=== PATIENT | female | born 1950 | race Caucasian/White ===

== ENCOUNTER → 2016-08-22 | Outpatient (CLI) | payer OTHER ==
[~2016-08-22] MED LIST: *BLDWK8; *CPAPSUP; /DILT30TAB; /INSULEV SC; /PANT40TA; /SUCR1TA PO; ADV250INH INH; ALBU/IPRAT INHALATION; ALBU17IN INH; ALBU17IN2 IN; ALBUTEROL INHALATION; ALBUTEROL LIQ; ALDA25TA2; ALDA25TA2 PO; ALTACE PO; AMARYL4 PO; AMMO12CR4 EXT; ASPEC325 PO; ASPI81TA45 OR; ASPI81TA83 PO; ASPI81TAEC PO; ASTELIN NASAL; ATEN25TA; ATEN25TA PO; ATEN50TA2; ATEN50TA2 OR; ATENOLOL50 PO; ATENPOW PO; ATROVENTIN INHALATION; AUG875 PO; AVANDIA4 PO; BABY81CH; BACT800T; BATTERY; BEXTRA PO; BIMA01SOL OU; CALC1TAB30 PO; CALCIUM GLUCONATE PO; CALCTAB22 PO; CALCTAB93 OR; CARDIZEM PO; CEFA1TAB; CEFAD50CA PO; CEFADROXIL PO; CEFT500T; COZA25TA8; COZAAR25 PO; CRES20TA PO; DARV100T; DEMA10TA; DEMADEX PO; DEXI60CA PO; DILT30TA PO; DILTIAZEM PO; DUONSOL; DUONSOL INHALATION; DURATUSS PO; DURICEF PO; ELIQ5TAB PO; FERR325T; FERR325T OR; FERR325T3 PO; FERROUS325 PO; FLEXERIL; GLUCCOSEAC TOPICAL; GLUCOP1000; GLUCOP1000 PO; GLUCOPH500 PO; GLUCOPXR5; GLUCOSACCS; GLUCOSE TEST; GLUCULTRA TOPICAL; HCTZ25 PO; HUMULIN703 SC; INSUH10VL SC; INSULANT SC; INSULIN LANTUS SUBQ; IRON CR; IRON CR PO; IRON28TA; JANUVIA50 PO; KETO-28; LANCMIS; LANTUS SQ; LASIX40 PO; LIDO5DIS; LIPITOR10 PO; LIPITOR20 PO; LUMIGAN EYE DROPS; LUMIGAN EYE DROPS OU; LYRICA; LYRICA50 PO; MAMMOGRAM; MICARDIS PO; MICARDIS40 PO; MOME50SP; NASONEX; NEEDLESGP; NEOSSOL TOPICAL; NITR0.4S SL; NOVOLIN SQ; NOVOLOG INSULIN SC; NOVOLOG SQ; NOVOLOG100 MG/ML SC; NOVOLOGPEN SQ; NYSTATINCR TOPICAL; PHENERGA25 PO; POTA10CA PO; PRED20TA PO; PREG25CA; PRIL40CA PO; PROTONIX40 PO; SCOOTER; SIMB1SUS OU; SIMV20TA2; SIMV40TA2 PO; SPIR25TA2; SPIR25TA2 PO; SPIRONO PO; SUCR1TAB56 PO; SYRIN.5CC SUBQ; SYRINS1CC SUBQ; THIA100TA PO; TORS10TA22 PO; TORS20TA2 OR; TORS5TAB; TORSEMIDE PO; TRICOR145 PO; VICO5TAB; VICODIN PO; VIOXX125 PO; VIT D 2000 OR; VITA100027; VITA50003 PO; VITA500T3 PO; VITAMIN B1; VITAMIN B12 OR; VITAMIN D OR; VITAMIN D PO; ZETIA PO; ZITHROM500 PO; ZITHROZPAK PO; ZOCOR20 PO; [UNRECOGNIZED DRUG - CODE] PO; [UNRECOGNIZED DRUG - CODE] PO; [UNRECOGNIZED DRUG - CODE] SC; [UNRECOGNIZED DRUG - CODE] SQ; [UNRECOGNIZED DRUG - OTHER]; [UNRECOGNIZED DRUG - OTHER]; [UNRECOGNIZED DRUG - OTHER]; [UNRECOGNIZED DRUG - SUPPLY]
== END ==
LOC: M LAB 08:09
PROVIDERS: ATTEND Ophthalmology
DX: H34.232 Retinal artery branch occlusion, left eye (principal)

== ENCOUNTER → 2016-09-23 | Outpatient (CLI) | payer OTHER ==
[~2016-09-23] MED LIST changes: -TORS10TA22 PO; +TORS10TA3 PO
--- NOTE | 2016-09-23 16:39 | REP ---
Clinical: Cough. Technique: PA and lateral. Comparison: 09/21/2015. Findings: Cardiomegaly appears stable. Lung ocampo demonstrate chronic interstitial changes. Subtle superimposed acute atelectasis cannot be excluded. No consolidation, effusion, or pneumothorax. Postsurgical changes include prior sternotomy and surgical clips in the bilateral anterior chest wall. Impression: Chronic interstitial changes. Subtle superimposed acute process cannot be excluded and if the patient remains symptomatic consider chest CT for further investigation. Signed by Loy Juarez MD 09/23/2016 04:30 P
[2016-09-23 21:25] LABS: BASO % 0.4 % (0.0-1.0); EOS # 0.2 K/mm3 (0.0-0.50); EOS % 1.8 % (0.0-3.0); LARGE UNSTAINED CELL # 0.3 K/mm3 (0.0-0.4); LARGE UNSTAINED CELL % 3.1 % (0.0-4.0); LYMPH # 1.1 K/mm3 (1.5-4.5); LYMPH % 13.8 % (24.0-44.0); MEAN CORPUSCULAR HEMOGLOBIN 26.5 pg (27.0-33.0); MEAN CORPUSCULAR HGB CONC 31.4 g/dl (32.0-36.5); MEAN CORPUSCULAR VOLUME 84.4 fl (80.0-96.0); MONO # 0.5 K/mm3 (0.0-0.8); MONO % 6.2 % (0.0-5.0); NEUTROPHILS # 6.2 K/mm3 (1.8-7.7); NEUTROPHILS % 74.8 % (36.0-66.0); PLATELET COUNT, AUTOMATED 179 k/mm3 (150-450); RED CELL DISTRIBUTION WIDTH 17.3 % (11.5-14.5); WHITE BLOOD COUNT 8.3 K/mm3 (4.0-10.0)
== END ==
LOC: M WUC 16:16
PROVIDERS: ATTEND Physician Assistant
DX: R50.9 Fever, unspecified (principal); R05 Cough

== ENCOUNTER → 2016-10-30 | Outpatient (REF) | payer OTHER ==
[2016-10-30 12:00] LABS: BASO % 0.3 % (0.0-1.0); EOS # 0.1 K/mm3 (0.0-0.50); EOS % 1.8 % (0.0-3.0); LARGE UNSTAINED CELL # 0.1 K/mm3 (0.0-0.4); LARGE UNSTAINED CELL % 1.8 % (0.0-4.0); LYMPH # 1.2 K/mm3 (1.5-4.5); LYMPH % 18.1 % (24.0-44.0); MEAN CORPUSCULAR HEMOGLOBIN 26.2 pg (27.0-33.0); MEAN CORPUSCULAR HGB CONC 31.4 g/dl (32.0-36.5); MEAN CORPUSCULAR VOLUME 83.4 fl (80.0-96.0); MONO # 0.3 K/mm3 (0.0-0.8); PLATELET COUNT, AUTOMATED 172 k/mm3 (150-450); RED CELL DISTRIBUTION WIDTH 16.7 % (11.5-14.5); WHITE BLOOD COUNT 6.8 K/mm3 (4.0-10.0)
[2016-10-30 12:25] LABS: ALBUMIN 3.5 GM/DL (3.2-5.2); ALBUMIN/GLOBULIN RATIO 1.17 (1.00-1.93); BILIRUBIN,TOTAL 0.6 MG/DL (0.2-1.0); CALCIUM LEVEL 8.6 MG/DL (8.8-10.2); CREATININE FOR GFR 1.03 MG/DL (0.55-1.02); GLOMERULAR FILTRATION RATE 57.4 (>45); PERCENT SATURATION 16.1 % (13.2-37.4); TOTAL PROTEIN 6.5 GM/DL (6.4-8.2)
== END ==
LOC: M SFHCPLAZ 08:45
PROVIDERS: ATTEND Family Medicine
DX: D50.9 Iron deficiency anemia, unspecified (principal); E78.2 Mixed hyperlipidemia; E55.9 Vitamin D deficiency, unspecified; E11.9 Type 2 diabetes mellitus without complications

== ENCOUNTER → 2016-11-12 | Outpatient (REF) | payer OTHER ==
[2016-11-12 13:54] LABS: MEAN CORPUSCULAR HGB CONC 32.1 g/dl (32.0-36.5); RED CELL DISTRIBUTION WIDTH 16.8 % (11.5-14.5); WHITE BLOOD COUNT 10.3 K/mm3 (4.0-10.0)
[2016-11-12 14:17] LABS: ALBUMIN 3.4 GM/DL (3.2-5.2); ANION GAP 5 MEQ/L (8-16); BLOOD UREA NITROGEN 19 MG/DL (7-18); CARBON DIOXIDE LEVEL 34 MEQ/L (21-32); CHLORIDE LEVEL 107 MEQ/L (98-107); CREATININE FOR GFR 0.86 MG/DL (0.55-1.02); GLOMERULAR FILTRATION RATE > 60.0 (>45); GLUCOSE, FASTING 131 MG/DL (80-110); MAGNESIUM LEVEL 2.4 MG/DL (1.8-2.4); PHOSPHORUS LEVEL 3.5 MG/DL (2.5-4.9); POTASSIUM SERUM 3.6 MEQ/L (3.5-5.1); SODIUM LEVEL 146 MEQ/L (136-145)
[2016-11-12 14:36] LABS: EOSINOPHILS 2 % (0-5)
[2016-11-12 14:39] LABS: ANISOCYTOSIS 2+
[2016-11-12 14:40] LABS: HYPOCHROMASIA 1+
== END ==
LOC: M SFHCPLAZ 12:07
PROVIDERS: ATTEND Family Medicine
DX: I50.30 Unspecified diastolic (congestive) heart failure (principal)

== ENCOUNTER → 2016-11-13 | Outpatient (CLI) | payer OTHER ==
[~2016-11-13] MED LIST changes: +ISOVUE-370 76% 100ML VIAL (Q9967) As Ordered ONE
--- NOTE | 2016-11-13 16:50 | REP ---
CT ANGIOGRAM CHEST: TECHNIQUE: Axial contrast enhanced images from the thoracic inlet to the upper abdomen using 100 mL Isovue 370 intravenous contrast material with multiplanar reformations. There is no CT evidence of pulmonary embolism. There is no aortic aneurysm or dissection. Mild scattered atherosclerotic calcifications are seen of the thoracic aorta. Moderate right effusion is seen with adjacent right basilar atelectasis/infiltrate. There is a small left effusion with mild left basilar atelectasis/infiltrate. Scattered mildly enlarged mediastinal and hilar lymph nodes are present appearing similar to the prior exam. There is mild cardiomegaly. A small amount of sludge or stones seen in the gallbladder. There are degenerative changes of the spine. IMPRESSION: NO CT evidence of pulmonary embolism. Moderate right effusion with adjacent right basilar atelectasis/infiltrate. Small left effusion with mild left basilar atelectasis/infiltrate, mild cardiomegaly. Signed by Sammy Joyce MD 11/13/2016 05:43 P
== END ==
LOC: M RAD 15:38
PROVIDERS: ATTEND Family Medicine
DX: R06.02 Shortness of breath (principal)

== ENCOUNTER → 2017-01-02 | Outpatient (CLI) | payer OTHER ==
[~2017-01-02] MED LIST changes: -ISOVUE-370 76% 100ML VIAL (Q9967) As Ordered ONE
--- NOTE | 2017-01-02 15:32 | REP ---
CHEST, TWO VIEWS: HISTORY: Pleural effusion. COMPARISON: 09/23/2016 and 11/13/2016 An increase in interstitial markings is present in the lungs consistent with chronic interstitial fibrosis. There is blunting of the right costophrenic angle due to a small pleural effusion. The effusion is decreased compared to the previous study. The cardiac silhouette is enlarged. The pulmonary vasculature is normal in appearance. The bony structure is intact. The decubitus radiograph is left side down rather than right. IMPRESSION: 1. Chronic interstitial fibrosis. 2. Cardiomegaly. 3. Small right pleural effusion, decreased compared to the previous CT study. Signed by Jareth Torres MD 01/02/2017 03:36 P
== END ==
LOC: M RAD 14:53
PROVIDERS: ATTEND Internal Medicine Pulmonary Disease
DX: R91.8 Other nonspecific abnormal finding of lung field (principal)

== ENCOUNTER → 2017-01-16 | Outpatient (CLI) | payer OTHER ==
[2017-01-16 19:32] LABS: ALBUMIN 3.4 GM/DL (3.2-5.2); ANION GAP 6 MEQ/L (8-16); BLOOD UREA NITROGEN 22 MG/DL (7-18); CALCIUM LEVEL 9.1 MG/DL (8.8-10.2); CARBON DIOXIDE LEVEL 36 MEQ/L (21-32); CHLORIDE LEVEL 101 MEQ/L (98-107); CREATININE FOR GFR 0.94 MG/DL (0.55-1.02); GLOMERULAR FILTRATION RATE > 60.0 (>45); GLUCOSE, FASTING 111 MG/DL (80-110); MAGNESIUM LEVEL 2.2 MG/DL (1.8-2.4); POTASSIUM SERUM 3.6 MEQ/L (3.5-5.1); SODIUM LEVEL 143 MEQ/L (136-145)
--- NOTE | 2017-01-17 02:00 | REP ---
Clinical: Chest pain. Cough. Comparison: 09/23/2016. 01/02/2017. Findings: Small right pleural effusion and associated atelectasis suggested. Underlying diffuse bilateral chronic interstitial changes similar to prior examination. Mild cardiomegaly stable. No pneumothorax. Evidence of prior sternotomy, CABG, and bilateral breast surgery. Impression: Small right pleural effusion/reaction and right basilar atelectasis similar to 01/02/2017. Signed by Loy Juarez MD 01/17/2017 01:51 A
== END ==
LOC: M LAB 17:28
PROVIDERS: ATTEND Physician Assistant
DX: I50.33 Acute on chronic diastolic (congestive) heart failure (principal); J90 Pleural effusion, not elsewhere classified; J98.11 Atelectasis

== ENCOUNTER → 2017-02-11 | Outpatient (CLI) | payer OTHER ==
[~2017-02-11] MED LIST changes: -DEXI60CA PO; +DEXI60CA2 PO; +VITA1CAP40 PO; -VITA50003 PO
[2017-02-11 10:23] LABS: ALBUMIN 3.3 GM/DL (3.2-5.2); ANION GAP 5 MEQ/L (8-16); BLOOD UREA NITROGEN 16 MG/DL (7-18); CALCIUM LEVEL 8.5 MG/DL (8.8-10.2); CARBON DIOXIDE LEVEL 33 MEQ/L (21-32); CHLORIDE LEVEL 108 MEQ/L (98-107); CREATININE FOR GFR 0.96 MG/DL (0.55-1.02); GLOMERULAR FILTRATION RATE > 60.0 (>45); GLUCOSE, FASTING 83 MG/DL (80-110); MAGNESIUM LEVEL 2.1 MG/DL (1.8-2.4); PHOSPHORUS LEVEL 3.5 MG/DL (2.5-4.9); POTASSIUM SERUM 3.9 MEQ/L (3.5-5.1); SODIUM LEVEL 146 MEQ/L (136-145)
== END ==
LOC: M LAB 09:15
PROVIDERS: ATTEND Physician Assistant
DX: I50.33 Acute on chronic diastolic (congestive) heart failure (principal); I48.2 Chronic atrial fibrillation

== ENCOUNTER → 2017-03-09 | Outpatient (CLI) | payer OTHER ==
--- NOTE | 2017-03-09 14:16 | REP ---
REASON: Back pain and cramping. COMPARISON: 09/10/2013 Flexion and extension bending views were obtained. There is no significant change from the prior exam. There is chronic posterior disc space narrowing and mild anterior lipping. Vertebral body height and alignment is again seen to be within normal limits. Posterior osteophytic ridging, inferior endplate L3 status quo. Partial syndesmophyte formation seen at multiple levels unchanged to slightly increased. The pedicles remain intact bilaterally. There is no evidence of instability. IMPRESSION: Chronic changes as described above. Signed by Sameer Ramos DO 03/09/2017 03:13 P
--- NOTE | 2017-03-09 14:18 | REP ---
REASON: Pain. COMPARISON: 05/12/2009 Since the last examination, the patient has undergone median sternotomy. Sternal wires obscure some of the bony detail of the upper and mid thoracic region. There is no significant change in the appearance of the thoracic spine. There is syndesmophyte formation seen bilaterally at multiple levels, status quo to slightly increased. Vertebral body height and alignment is unchanged. There is disc space narrowing at every level, status quo to slightly increased. IMPRESSION: Chronic changes as described above. Signed by Sameer Ramos DO 03/09/2017 03:13 P
== END ==
LOC: M RAD 11:42
PROVIDERS: ATTEND Family Medicine
DX: R25.2 Cramp and spasm (principal)

== ENCOUNTER → 2017-05-21 | Outpatient (REF) | payer OTHER ==
[2017-05-21 12:30] LABS: BASO % 0.3 % (0.0-1.0); EOS # 0.1 10^3/uL (0.0-0.50); EOS % 1.8 % (0.0-3.0); IMMATURE GRANULOCYTE % 0.4 % (0-0); LYMPH # 1.1 10^3/uL (1.5-4.5); LYMPH % 14.2 % (24.0-44.0); MONO # 0.5 10^3/uL (0.0-0.8); MONO % 6.9 % (0.0-5.0); NEUTROPHILS # 5.7 10^3/uL (1.8-7.7); NEUTROPHILS % 76.4 % (36.0-66.0); PLATELET COUNT, AUTOMATED 187 10^3/uL (150-450); RED CELL DISTRIBUTION WIDTH 16.8 % (11.5-14.5); WHITE BLOOD COUNT 7.4 10^3/uL (4.0-10.0)
[2017-05-21 12:50] LABS: ALBUMIN 3.3 GM/DL (3.2-5.2); ALBUMIN/GLOBULIN RATIO 0.97 (1.00-1.93); ALKALINE PHOSPHATASE 101 U/L (45-117); ALT/SGPT 18 U/L (12-78); ANION GAP 4 MEQ/L (8-16); AST/SGOT 18 U/L (15-37); BILIRUBIN,TOTAL 0.6 MG/DL (0.2-1.0); BLOOD UREA NITROGEN 17 MG/DL (7-18); CALCIUM LEVEL 8.7 MG/DL (8.8-10.2); CARBON DIOXIDE LEVEL 39 MEQ/L (21-32); CHLORIDE LEVEL 103 MEQ/L (98-107); CHOLESTEROL LEVEL 157 MG/DL (<200); CREATININE FOR GFR 0.95 MG/DL (0.55-1.02); FERRITIN 121 NG/ML (8-252); FREE T4 1.15 NG/DL (0.76-1.46); GLOMERULAR FILTRATION RATE > 60.0 (>45); GLUCOSE, FASTING 151 MG/DL (80-110); PERCENT SATURATION 17.6 % (13.2-45.0); SODIUM LEVEL 146 MEQ/L (136-145); TOTAL IRON BINDING CAPACITY 301 UG/DL (250-450); TOTAL PROTEIN 6.7 GM/DL (6.4-8.2); TRIGLYCERIDES LEVEL 174 MG/DL (<150)
== END ==
LOC: M SFHCPLAZ 09:13
PROVIDERS: ATTEND Family Medicine
DX: D50.9 Iron deficiency anemia, unspecified (principal); E78.2 Mixed hyperlipidemia; E11.9 Type 2 diabetes mellitus without complications

== ENCOUNTER → 2017-06-05 | Outpatient (CLI) | payer OTHER ==
--- NOTE | 2017-06-06 10:06 | REP ---
ULTRASOUND RIGHT CHEST WALL: Real-time sonographic evaluation of the right chest wall performed. The patient reports swelling in this region and has had a hematoma drained. At the site of swelling, there is no evidence of fluid collection or mass. Signed by Sammy Joyce MD 06/06/2017 05:44 P
== END ==
LOC: M RAD 16:56
PROVIDERS: ATTEND Family Medicine
DX: N64.89 Other specified disorders of breast (principal); D05.10 Intraductal carcinoma in situ of unspecified breast

== ENCOUNTER → 2017-08-19 | Outpatient (CLI) | payer OTHER ==
[2017-08-19 20:55] LABS: ALBUMIN 3.6 GM/DL (3.2-5.2); ANION GAP 6 MEQ/L (8-16); BLOOD UREA NITROGEN 22 MG/DL (7-18); CALCIUM LEVEL 9.1 MG/DL (8.8-10.2); CARBON DIOXIDE LEVEL 35 MEQ/L (21-32); CHLORIDE LEVEL 101 MEQ/L (98-107); CREATININE FOR GFR 1.04 MG/DL (0.55-1.02); GLOMERULAR FILTRATION RATE 56.6 (>45); GLUCOSE, FASTING 194 MG/DL (80-110); PHOSPHORUS LEVEL 3.2 MG/DL (2.5-4.9); POTASSIUM SERUM 3.9 MEQ/L (3.5-5.1); SODIUM LEVEL 142 MEQ/L (136-145)
== END ==
LOC: M LAB 17:55
DX: I50.32 Chronic diastolic (congestive) heart failure (principal)

== ENCOUNTER → 2017-08-19 | Outpatient (CLI) | payer OTHER ==
[2017-08-19 20:44] LABS: BASO % 0.5 % (0.0-1.0); EOS # 0.1 10^3/uL (0.0-0.50); EOS % 1.4 % (0.0-3.0); HEMATOCRIT 36.8 % (36.0-47.0); HEMOGLOBIN 11.6 g/dl (12.0-16.0); IMMATURE GRANULOCYTE % 0.4 % (0-0); LYMPH # 1.5 10^3/uL (1.5-4.5); LYMPH % 17.2 % (24.0-44.0); MEAN CORPUSCULAR HEMOGLOBIN 26.2 pg (27.0-33.0); MEAN CORPUSCULAR HGB CONC 31.5 g/dl (32.0-36.5); MEAN CORPUSCULAR VOLUME 83.3 fl (80.0-96.0); MONO # 0.6 10^3/uL (0.0-0.8); MONO % 6.6 % (0.0-5.0); NEUTROPHILS # 6.3 10^3/uL (1.8-7.7); NEUTROPHILS % 73.9 % (36.0-66.0); PLATELET COUNT, AUTOMATED 193 10^3/uL (150-450); RED BLOOD COUNT 4.42 10^6/uL (4.00-5.40); RED CELL DISTRIBUTION WIDTH 16.8 % (11.5-14.5); RETIC HEMOGLOBIN EQUIVALENT 30.6 pg (24-36); RETICULOCYTE # 126.4 10^9/L (17-77); RETICULOCYTE % 2.9 % (0.5-1.5); WHITE BLOOD COUNT 8.5 10^3/uL (4.0-10.0)
[2017-08-19 20:56] LABS: ALBUMIN 3.5 GM/DL (3.2-5.2); ALBUMIN/GLOBULIN RATIO 1.03 (1.00-1.93); ALKALINE PHOSPHATASE 111 U/L (45-117); ALT/SGPT 21 U/L (12-78); ANION GAP 6 MEQ/L (8-16); AST/SGOT 20 U/L (7-37); BILIRUBIN,TOTAL 0.4 MG/DL (0.2-1.0); BLOOD UREA NITROGEN 20 MG/DL (7-18); CALCIUM LEVEL 8.7 MG/DL (8.8-10.2); CARBON DIOXIDE LEVEL 35 MEQ/L (21-32); CHLORIDE LEVEL 101 MEQ/L (98-107); CREATININE FOR GFR 1.04 MG/DL (0.55-1.02); FERRITIN 100 NG/ML (8-252); GLOMERULAR FILTRATION RATE 56.6 (>45); GLUCOSE, FASTING 195 MG/DL (80-110); IRON (FE) 46 UG/DL (50-170); MAGNESIUM LEVEL 2.4 MG/DL (1.8-2.4); PERCENT SATURATION 14.5 % (13.2-45.0); SODIUM LEVEL 142 MEQ/L (136-145); TOTAL IRON BINDING CAPACITY 317 UG/DL (250-450); TOTAL PROTEIN 6.9 GM/DL (6.4-8.2)
[2017-08-19 21:03] LABS: PTH INTACT 55.9 PG/ML (14.0-72.0); TOTAL 25(OH) VITAMIN D 54.1 NG/ML (30.0-100.0)
[2017-08-19 22:08] LABS: ESTIMATED AVERAGE GLUCOSE 148 MG/DL (60-110); HEMOGLOBIN A1c 6.8 %
[2017-08-21 14:19] LABS: TISSUE TRANSGLUTAMINASE IgA <2 U/mL (0-3)
== END ==
LOC: M LAB 17:52
DX: D50.9 Iron deficiency anemia, unspecified (principal)

== ENCOUNTER → 2017-11-06 | Outpatient (CLI) | payer OTHER | LOC: M WUC 18:12 | DX: M79.632 Pain in left forearm (principal) | CPT/HCPCS: 73090 ==

== ENCOUNTER → 2017-12-05 | Outpatient (REF) | payer OTHER ==
[2017-12-05 09:55] LABS: BASO % 0.3 % (0.0-1.0); EOS # 0.1 10^3/uL (0.0-0.50); EOS % 1.8 % (0.0-3.0); HEMATOCRIT 35.6 % (36.0-47.0); HEMOGLOBIN 11.7 g/dl (12.0-15.5); IMMATURE GRANULOCYTE % 0.6 % (0-3.0); LYMPH # 1.3 10^3/uL (1.5-4.5); LYMPH % 16.4 % (24.0-44.0); MEAN CORPUSCULAR HEMOGLOBIN 28.1 pg (27.0-33.0); MEAN CORPUSCULAR HGB CONC 32.9 g/dl (32.0-36.5); MEAN CORPUSCULAR VOLUME 85.4 fl (80.0-96.0); MONO # 0.6 10^3/uL (0.0-0.8); MONO % 8.1 % (0.0-5.0); NEUTROPHILS # 5.7 10^3/uL (1.8-7.7); NEUTROPHILS % 72.8 % (36.0-66.0); PLATELET COUNT, AUTOMATED 179 10^3/uL (150-450); RED BLOOD COUNT 4.17 10^6/uL (4.00-5.40); RED CELL DISTRIBUTION WIDTH 16.3 % (11.5-14.5); WHITE BLOOD COUNT 7.9 10^3/uL (4.0-10.0)
[2017-12-05 10:12] LABS: ESTIMATED AVERAGE GLUCOSE 197 MG/DL (60-110); HEMOGLOBIN A1c 8.5 %
[2017-12-05 10:13] LABS: ALBUMIN 3.3 GM/DL (3.2-5.2); ALBUMIN/GLOBULIN RATIO 1.03 (1.00-1.93); ALKALINE PHOSPHATASE 94 U/L (45-117); ALT/SGPT 23 U/L (12-78); ANION GAP 5 MEQ/L (8-16); AST/SGOT 20 U/L (7-37); BILIRUBIN,TOTAL 0.5 MG/DL (0.2-1.0); BLOOD UREA NITROGEN 22 MG/DL (7-18); C REACTIVE PROTEIN QUANTITATIV 1.01 MG/DL (0.00-0.30); CALCIUM LEVEL 8.5 MG/DL (8.8-10.2); CARBON DIOXIDE LEVEL 33 MEQ/L (21-32); CHLORIDE LEVEL 106 MEQ/L (98-107); CHOLESTEROL LEVEL 134 MG/DL (<200); CHOLESTEROL RISK RATIO 4.187 (<5); CPK CREATINE PHOSPHOKINASE 87 U/L (26-192); CREATININE FOR GFR 1.26 MG/DL (0.55-1.30); FREE T4 1.03 NG/DL (0.76-1.46); GLOMERULAR FILTRATION RATE 45.4 (>45); GLUCOSE, FASTING 171 MG/DL (70-100); HDL CHOLESTEROL 32 MG/DL (>40); LDL CHOLESTEROL 65.8 MG/DL (<100); NON-HDL-C 102 MG/DL; POTASSIUM SERUM 3.9 MEQ/L (3.5-5.1); SODIUM LEVEL 144 MEQ/L (136-145); TOTAL PROTEIN 6.5 GM/DL (6.4-8.2); TRIGLYCERIDES LEVEL 181 MG/DL (<150)
[2017-12-05 12:03] LABS: VITAMIN B12 LEVEL 433 PG/ML (247-911)
== END ==
LOC: M SFHCPLAZ 07:56
DX: E53.8 Deficiency of other specified B group vitamins (principal); E78.2 Mixed hyperlipidemia; I50.30 Unspecified diastolic (congestive) heart failure; E11.9 Type 2 diabetes mellitus without complications

== ENCOUNTER → 2017-12-14 | Outpatient (CLI) | payer OTHER ==
[2017-12-14 11:10] LABS: ALBUMIN 3.4 GM/DL (3.2-5.2); ANION GAP 7 MEQ/L (8-16); BLOOD UREA NITROGEN 20 MG/DL (7-18); CALCIUM LEVEL 8.3 MG/DL (8.8-10.2); CARBON DIOXIDE LEVEL 32 MEQ/L (21-32); CHLORIDE LEVEL 105 MEQ/L (98-107); CREATININE FOR GFR 1.03 MG/DL (0.55-1.30); GLOMERULAR FILTRATION RATE 57.1 (>45); GLUCOSE, FASTING 215 MG/DL (70-100); LIPASE 93 U/L (73-393); PHOSPHORUS LEVEL 3.4 MG/DL (2.5-4.9); POTASSIUM SERUM 3.9 MEQ/L (3.5-5.1); SODIUM LEVEL 144 MEQ/L (136-145)
[2017-12-16 14:19] LABS: H PYLORI SERUM QUANT IgG ABY 0.17 (0.00-0.79)
== END ==
LOC: M LAB 10:24
DX: K21.9 Gastro-esophageal reflux disease without esophagitis (principal)
CPT/HCPCS: 83690

== ENCOUNTER → 2018-01-06 | Outpatient (CLI) | payer OTHER ==
[~2018-01-06] MED LIST changes: -*BLDWK8; -*CPAPSUP; -/DILT30TAB; -/INSULEV SC; -/PANT40TA; -/SUCR1TA PO; -ADV250INH INH; -ALBU/IPRAT INHALATION; -ALBU17IN INH; -ALBU17IN2 IN; -ALBUTEROL INHALATION; -ALBUTEROL LIQ; -ALDA25TA2; -ALDA25TA2 PO; -ALTACE PO; -AMARYL4 PO; -AMMO12CR4 EXT; -ASPEC325 PO; -ASPI81TA45 OR; -ASPI81TA83 PO; -ASPI81TAEC PO; -ASTELIN NASAL; -ATEN25TA; -ATEN25TA PO; -ATEN50TA2; -ATEN50TA2 OR; -ATENOLOL50 PO; -ATENPOW PO; -ATROVENTIN INHALATION; -AUG875 PO; -AVANDIA4 PO; -BABY81CH; -BACT800T; -BATTERY; -BEXTRA PO; -BIMA01SOL OU; -CALC1TAB30 PO; -CALCIUM GLUCONATE PO; -CALCTAB22 PO; -CALCTAB93 OR; -CARDIZEM PO; -CEFA1TAB; -CEFAD50CA PO; -CEFADROXIL PO; -CEFT500T; -COZA25TA8; -COZAAR25 PO; -CRES20TA PO; -DARV100T; -DEMA10TA; -DEMADEX PO; -DEXI60CA2 PO; -DILT30TA PO; -DILTIAZEM PO; -DUONSOL; -DUONSOL INHALATION; -DURATUSS PO; -DURICEF PO; +E-Z-GAS II EFFERVESCENT PACKET (SODIUM BICARB./CITRIC ACID/SIMETHICONE) As Ordered; +E-Z-HD 98% w/w 340GM SUSP BTL As Ordered; +E-Z-PAQUE 96% w/w SUSP 176GM BTL As Ordered; -ELIQ5TAB PO; -FERR325T; -FERR325T OR; -FERR325T3 PO; -FERROUS325 PO; -FLEXERIL; -GLUCCOSEAC TOPICAL; -GLUCOP1000; -GLUCOP1000 PO; -GLUCOPH500 PO; -GLUCOPXR5; -GLUCOSACCS; -GLUCOSE TEST; -GLUCULTRA TOPICAL; -HCTZ25 PO; -HUMULIN703 SC; -INSUH10VL SC; -INSULANT SC; -INSULIN LANTUS SUBQ; -IRON CR; -IRON CR PO; -IRON28TA; -JANUVIA50 PO; -KETO-28; -LANCMIS; -LANTUS SQ; -LASIX40 PO; -LIDO5DIS; -LIPITOR10 PO; -LIPITOR20 PO; -LUMIGAN EYE DROPS; -LUMIGAN EYE DROPS OU; -LYRICA; -LYRICA50 PO; -MAMMOGRAM; -MICARDIS PO; -MICARDIS40 PO; -MOME50SP; -NASONEX; -NEEDLESGP; -NEOSSOL TOPICAL; -NITR0.4S SL; -NOVOLIN SQ; -NOVOLOG INSULIN SC; -NOVOLOG SQ; -NOVOLOG100 MG/ML SC; -NOVOLOGPEN SQ; -NYSTATINCR TOPICAL; -PHENERGA25 PO; -POTA10CA PO; -PRED20TA PO; -PREG25CA; -PRIL40CA PO; -PROTONIX40 PO; -SCOOTER; -SIMB1SUS OU; -SIMV20TA2; -SIMV40TA2 PO; -SPIR25TA2; -SPIR25TA2 PO; -SPIRONO PO; -SUCR1TAB56 PO; -SYRIN.5CC SUBQ; -SYRINS1CC SUBQ; -THIA100TA PO; -TORS10TA3 PO; -TORS20TA2 OR; -TORS5TAB; -TORSEMIDE PO; -TRICOR145 PO; -VICO5TAB; -VICODIN PO; -VIOXX125 PO; -VIT D 2000 OR; -VITA100027; -VITA1CAP40 PO; -VITA500T3 PO; -VITAMIN B1; -VITAMIN B12 OR; -VITAMIN D OR; -VITAMIN D PO; -ZETIA PO; -ZITHROM500 PO; -ZITHROZPAK PO; -ZOCOR20 PO; -[UNRECOGNIZED DRUG - CODE] PO; -[UNRECOGNIZED DRUG - CODE] PO; -[UNRECOGNIZED DRUG - CODE] SC; -[UNRECOGNIZED DRUG - CODE] SQ; -[UNRECOGNIZED DRUG - OTHER]; -[UNRECOGNIZED DRUG - OTHER]; -[UNRECOGNIZED DRUG - OTHER]; -[UNRECOGNIZED DRUG - SUPPLY]
== END ==
LOC: M RAD 09:10
DX: K21.9 Gastro-esophageal reflux disease without esophagitis (principal); Z98.84 Bariatric surgery status

== ENCOUNTER → 2018-03-24 | Outpatient (REF) | payer OTHER ==
[2018-03-24 12:13] LABS: BASO % 0.3 % (0.0-1.0); EOS # 0.1 10^3/uL (0.0-0.50); EOS % 1.6 % (0.0-3.0); HEMATOCRIT 36.8 % (36.0-47.0); HEMOGLOBIN 11.7 g/dl (12.0-15.5); IMMATURE GRANULOCYTE % 0.4 % (0-3.0); LYMPH % 13.1 % (24.0-44.0); MEAN CORPUSCULAR HEMOGLOBIN 27.7 pg (27.0-33.0); MEAN CORPUSCULAR HGB CONC 31.8 g/dl (32.0-36.5); MONO # 0.5 10^3/uL (0.0-0.8); MONO % 6.8 % (0.0-5.0); NEUTROPHILS # 6.2 10^3/uL (1.8-7.7); NEUTROPHILS % 77.8 % (36.0-66.0); PLATELET COUNT, AUTOMATED 161 10^3/uL (150-450); RED BLOOD COUNT 4.23 10^6/uL (4.00-5.40); RED CELL DISTRIBUTION WIDTH 16.5 % (11.5-14.5); RETIC HEMOGLOBIN EQUIVALENT 31.4 pg (24-36); RETICULOCYTE # 132.8 10^9/L (17-77); RETICULOCYTE % 3.1 % (0.5-1.5); WHITE BLOOD COUNT 7.9 10^3/uL (4.0-10.0)
[2018-03-24 12:32] LABS: ALBUMIN 3.3 GM/DL (3.2-5.2); ALBUMIN/GLOBULIN RATIO 1.06 (1.00-1.93); ALKALINE PHOSPHATASE 104 U/L (45-117); ALT/SGPT 20 U/L (12-78); ANION GAP 6 MEQ/L (8-16); AST/SGOT 20 U/L (7-37); BILIRUBIN,TOTAL 0.4 MG/DL (0.2-1.0); BLOOD UREA NITROGEN 16 MG/DL (7-18); CALCIUM LEVEL 8.6 MG/DL (8.8-10.2); CARBON DIOXIDE LEVEL 33 MEQ/L (21-32); CHLORIDE LEVEL 107 MEQ/L (98-107); CREATININE FOR GFR 0.99 MG/DL (0.55-1.30); GLOMERULAR FILTRATION RATE 59.7 (>45); GLUCOSE, FASTING 139 MG/DL (70-100); MAGNESIUM LEVEL 1.9 MG/DL (1.8-2.4); POTASSIUM SERUM 3.7 MEQ/L (3.5-5.1); SODIUM LEVEL 146 MEQ/L (136-145); TOTAL PROTEIN 6.4 GM/DL (6.4-8.2)
[2018-03-24 13:27] LABS: ESTIMATED AVERAGE GLUCOSE 174 MG/DL (60-110); HEMOGLOBIN A1c 7.7 %
== END ==
LOC: M SFHCPLAZ 09:14
DX: D50.9 Iron deficiency anemia, unspecified (principal); I50.30 Unspecified diastolic (congestive) heart failure; E11.9 Type 2 diabetes mellitus without complications
CPT/HCPCS: 83735

== ENCOUNTER → 2018-03-25 | Outpatient (REF) | payer OTHER | LOC: M LAB REF 15:02 | DX: L03.90 Cellulitis, unspecified (principal) ==

== ENCOUNTER → 2018-04-21 | Outpatient (REF) | payer OTHER | LOC: M LAB REF 16:35 | DX: L03.031 Cellulitis of right toe (principal) | CPT/HCPCS: 87186 ==

== ENCOUNTER → 2018-05-22 | Outpatient (REF) | payer OTHER | LOC: M SFHCPLAZ 15:45 | DX: L03.90 Cellulitis, unspecified (principal) | CPT/HCPCS: 87186 ==

== ENCOUNTER 2018-07-17 06:53 | Day surgery (SDC) | payer OTHER ==
[~2018-07-17] VITALS: Ht 167.6 cm; Wt 99.8 kg
[~2018-07-17 06:53] MED LIST changes: +*BLDWK8; +*CPAPSUP; +/DILT30TAB; +/INSULEV SC; +/PANT40TA; +/SUCR1TA PO; +ADV250INH INH; +ADV500INH INH; +ALBU/IPRAT INHALATION; +ALBU17IN INH; +ALBU17IN2 IN; +ALBUTEROL INHALATION; +ALBUTEROL LIQ; +ALDA25TA2; +ALDA25TA2 PO; +ALTACE PO; +AMARYL4 PO; +AMMO12CR4 EXT; +ASPEC325 PO; +ASPI81TA45 OR; +ASPI81TA83 PO; +ASPI81TAEC PO; +ASTELIN NASAL; +ATEN25TA; +ATEN25TA PO; +ATEN50TA2; +ATEN50TA2 OR; +ATENOLOL50 PO; +ATENPOW PO; +ATROVENTIN INHALATION; +AUG875 PO; +AVANDIA4 PO; +BABY81CH; +BACT800T; +BATTERY; +BEXTRA PO; +BIMA01SOL OU; +BISO10TA PO; +CALC1TAB30 PO; +CALCIUM GLUCONATE PO; +CALCTAB22 PO; +CALCTAB93 OR; +CARDIZEM PO; +CEFA1TAB; +CEFAD50CA PO; +CEFADROXIL PO; +CEFT500T; +COZA25TA8; +COZAAR25 PO; +CRES20TA PO; +DARV100T; +DEMA10TA; +DEMADEX PO; +DEXI60CA2 PO; +DILT30TA PO; +DILTIAZEM PO; +DUONSOL; +DUONSOL INHALATION; +DURATUSS PO; +DURICEF PO; -E-Z-GAS II EFFERVESCENT PACKET (SODIUM BICARB./CITRIC ACID/SIMETHICONE) As Ordered; -E-Z-HD 98% w/w 340GM SUSP BTL As Ordered; -E-Z-PAQUE 96% w/w SUSP 176GM BTL As Ordered; +ELIQ5TAB PO; +FERR325T; +FERR325T OR; +FERR325T3 PO; +FERROUS325 PO; +FLEXERIL; +GABA-843 PO; +GLUCCOSEAC TOPICAL; +GLUCOP1000; +GLUCOP1000 PO; +GLUCOPH500 PO; +GLUCOPXR5; +GLUCOSACCS; +GLUCOSE TEST; +GLUCULTRA TOPICAL; +HCTZ25 PO; +HUMULIN703 SC; +INSUH10VL SC; +INSULANT SC; +INSULIN LANTUS SUBQ; +IRON CR; +IRON CR PO; +IRON28TA; +JANUVIA50 PO; +KETO-28; +KLOR10TA76 PO; +LANCMIS; +LANTUS SQ; +LASIX40 PO; +LIDO5DIS; +LIPITOR10 PO; +LIPITOR20 PO; +LUMIGAN EYE DROPS; +LUMIGAN EYE DROPS OU; +LYRICA; +LYRICA50 PO; +MAMMOGRAM; +MICARDIS PO; +MICARDIS40 PO; +MOME50SP; +NASONEX; +NEEDLESGP; +NEOSSOL TOPICAL; +NITR0.4S SL; +NOVOLIN SQ; +NOVOLOG INSULIN SC; +NOVOLOG SQ; +NOVOLOG100 MG/ML SC; +NOVOLOGPEN SQ; +NYSTATINCR TOPICAL; +PHENERGA25 PO; +PRED20TA PO; +PREG25CA; +PRIL40CA PO; +PROTONIX40 PO; +RANI150T PO; +SCOOTER; +SIMB1SUS OU; +SIMV20TA2; +SIMV40TA2 PO; +SPIR-10 PO; +SPIR25TA2; +SPIRONO PO; +SUCR1TAB56 PO; +SYRIN.5CC SUBQ; +SYRINS1CC SUBQ; +THIA100TA PO; +TORS10TA3 PO; +TORS20TA2 OR; +TORS20TA2 PO; +TORS5TAB; +TORSEMIDE PO; +TRICOR145 PO; +VENTAER INH; +VICO5TAB; +VICODIN PO; +VIOXX125 PO; +VIT D 2000 OR; +VITA100027; +VITA50005 PO; +VITA500T3 PO; +VITAMIN B1; +VITAMIN B12 OR; +VITAMIN D OR; +VITAMIN D PO; +VOLT1GEL15 TD; +ZETIA PO; +ZITHROM500 PO; +ZITHROZPAK PO; +ZOCOR20 PO; +[UNRECOGNIZED DRUG - CODE] PO; +[UNRECOGNIZED DRUG - CODE] PO; +[UNRECOGNIZED DRUG - CODE] SC; +[UNRECOGNIZED DRUG - CODE] SQ; +[UNRECOGNIZED DRUG - OTHER]; +[UNRECOGNIZED DRUG - OTHER]; +[UNRECOGNIZED DRUG - OTHER]; +[UNRECOGNIZED DRUG - SUPPLY]
[2018-07-17] MEDS ORDERED: PROPOFOL 200 MG/20 ML VIAL As Ordered ONE ×2 (07:16→08:44)
[2018-07-17] MEDS ORDERED: LIDOCAINE 2% INJ 100 MG/5 ML SDV (FOR ANES.) As Ordered ONE (07:17)
[2018-07-17] MEDS ORDERED: GLUCAGON FOR INJ 1 MG VIAL (J1610) As Ordered ONE (08:47)
[2018-07-17] MEDS ORDERED: ONDANSETRON 4MG/2ML VIAL (J2405) As Ordered ONE (08:58)
--- NOTE | 2018-07-17 09:09 | ROOR ---
Patient Name: Moira Benitez Procedure Date: 07/17/2018 8:13 AM Date of : 1950 Age: 67 Room: [facility] Gender: Female Note Status: Finalized Procedure: Colonoscopy Indications: High risk colon cancer surveillance: Personal history of colonic polyps, High risk colon cancer surveillance: Personal history of adenoma with villous component Providers: Dae WHITESIDE MD Referring MD: Nabil Lennon MD Requesting Provider: Medicines: Monitored Anesthesia Care Complications: No immediate complications. Procedure: Pre-Anesthesia Assessment: - The heart rate, respiratory rate, oxygen saturations, blood pressure, adequacy of pulmonary ventilation, and response to care were monitored throughout the procedure. The Colonoscope was introduced through the anus and advanced to the cecum, identified by appendiceal orifice and ileocecal valve. The colonoscopy was performed with difficulty due to inadequate bowel prep. The patient tolerated the procedure well. The quality of the bowel preparation was inadequate. Findings: The perianal and digital rectal examinations were normal. Four sessile polyps were found in the sigmoid colon. The polyps were 5 to 8 mm in size. These polyps were removed with a piecemeal technique using a cold snare. Resection and retrieval were complete. A 10 mm polyp was found in the proximal sigmoid colon. The polyp was semi-pedunculated. The polyp was removed with a hot snare. Resection and retrieval were complete. To prevent bleeding after the polypectomy, three hemostatic clips were successfully placed. There was no bleeding at the end of the procedure. A 3 mm polyp was found in the ascending colon. The polyp was sessile. The polyp was removed with a jumbo cold forceps. Resection and retrieval were complete. Multiple medium-mouthed diverticula were found in the sigmoid colon. Impression: - Preparation of the colon was inadequate. - Four 5 to 8 mm polyps in the sigmoid colon, removed piecemeal using a cold snare. Resected and retrieved. - One 10 mm polyp in the proximal sigmoid colon, removed with a hot snare. Resected and retrieved. Clips were placed. - One 3 mm polyp in the ascending colon, removed with a jumbo cold forceps. Resected and retrieved. - Moderate diverticulosis in the sigmoid colon. Recommendation: - Repeat colonoscopy in 6 months because the bowel preparation was suboptimal. - Resume Eliquis (apixaban) at prior dose in 3 days. - No ibuprofen, naproxen, or other non-steroidal anti-inflammatory drugs for 10 days after polyp removal. Dae Whiteside MD Dae WHITESIDE MD 07/17/2018 9:09:00 AM This report has been signed electronically. Number of Addenda: 0 Note Initiated On: 07/17/2018 8:13 AM Estimated Blood Loss: Estimated blood loss: none.
[2018-07-17 09:45] VITALS: BP 177/74
[2018-07-29] MEDS ORDERED: RHOP0.02 OU (12:28)
[2018-07-29] MEDS ORDERED: LANTINJ4 SC ×2 (12:28)
[2018-07-29] MEDS ORDERED: IRBE75TA5 PO (12:28)
[2018-07-29] MEDS ORDERED: SIMB1SUS OU (12:28)
[2018-07-29] MEDS ORDERED: RANI300T PO (12:28)
[2018-07-29] MEDS ORDERED: ADV500INH INH (12:28)
[2018-07-29] MEDS ORDERED: ATEN25TA PO (12:28)
[2018-07-29] MEDS ORDERED: CALC1TAB55 PO (12:28)
[2018-07-29] MEDS ORDERED: DEXI60CA2 PO (12:28)
[2018-07-29] MEDS ORDERED: NEUR300C PO (12:28)
[2018-07-29] MEDS ORDERED: CEFAD50CA PO (12:28)
[2018-07-29] MEDS ORDERED: CRES20TA PO (12:28)
[2018-07-29] MEDS ORDERED: NOVOINJ3 SC (12:28)
[2018-07-29] MEDS ORDERED: PROAAER10 INH (12:28)
[2018-07-29] MEDS ORDERED: DILT30TA PO (12:28)
[2018-07-29] MEDS ORDERED: TORS10TA3 PO ×2 (12:28)
[2018-07-29] MEDS ORDERED: DRIS50003 PO (12:28)
[2018-07-29] MEDS ORDERED: ASPI81TA85 PO (12:28)
[2018-07-29] MEDS ORDERED: KLOR10TA76 PO (12:28)
[2018-07-29] MEDS ORDERED: REGL5TAB2 PO (12:28)
[2018-07-29] MEDS ORDERED: ELIQ5TAB PO (12:28)
[2018-07-29] MEDS ORDERED: SPIR-10 PO (12:28)
[2018-07-29] MEDS ORDERED: MOME50SP (12:28)
[2018-07-29] MEDS ORDERED: BISO5TAB5 PO (12:28)
[2018-07-29] MEDS ORDERED: VITA500T PO (12:28)
[2018-07-29] MEDS ORDERED: AMMO12CR4 TOP (12:28)
[2018-07-29] MEDS ORDERED: SUCR1TA PO (12:28)
[2018-07-29] MEDS ORDERED: FERR325T3 PO (12:28)
[2018-07-29] MEDS ORDERED: GENT0.1C2 TOP (17:54)
[2018-07-30] MEDS ORDERED: ACET65SU PR (18:49)
[2018-07-30] MEDS ORDERED: GLUC4CHW19 PO (18:49)
[2018-07-30] MEDS ORDERED: GENT1OI TOP (18:49)
[2018-07-30] MEDS ORDERED: ZOSY1SOL4 IV (18:49)
[2018-07-30] MEDS ORDERED: ONDA4VLL IV (18:49)
[2018-07-30] MEDS ORDERED: DILA1INJ2 IV (18:49)
[2018-07-30] MEDS ORDERED: [UNRECOGNIZED DRUG - CODE] IV (18:49)
[2018-07-30] MEDS ORDERED: DEXT50IN6 IV (18:49)
[2018-07-30] MEDS ORDERED: GLUC1INJ21 SC (18:49)
[2018-07-30] MEDS ORDERED: PROT40IN4 IV (18:49)
[2018-07-30] MEDS ORDERED: Acetaminophen Tab PO (18:49)
[2018-08-03] MEDS ORDERED: ZOFR4TAB16 PO (11:11)
[2018-08-03] MEDS ORDERED: CIPR500T19 PO (11:11)
[2018-08-03] MEDS ORDERED: FLAG500T PO (11:11)
[2018-08-03] MEDS ORDERED: NORCOTAB PO (11:11)
[2018-08-12] MEDS ORDERED: METR1TAB66 PO (18:12)
== END 2018-07-17 10:03 | disposition home or self-care (01) ==
LOC: M OPP 06:53
PROVIDERS: ATTEND Internal Medicine Gastroenterology
DX: Z12.11 Encounter for screening for malignant neoplasm of colon (principal); D12.5 Benign neoplasm of sigmoid colon; D12.2 Benign neoplasm of ascending colon; K57.30 Diverticulosis of large intestine without perforation or abscess without bleeding; Z86.010 Personal history of colon polyps; I10 Essential (primary) hypertension; E78.00 Pure hypercholesterolemia, unspecified; D64.9 Anemia, unspecified; E10.9 Type 1 diabetes mellitus without complications; J45.909 Unspecified asthma, uncomplicated; I48.91 Unspecified atrial fibrillation; G47.30 Sleep apnea, unspecified; Z79.4 Long term (current) use of insulin; Z79.82 Long term (current) use of aspirin; Z79.899 Other long term (current) drug therapy; Z88.1 Allergy status to other antibiotic agents; Z88.2 Allergy status to sulfonamides; Z88.8 Allergy status to other drugs, medicaments and biological substances; Z98.84 Bariatric surgery status; Z87.19 Personal history of other diseases of the digestive system; Z85.3 Personal history of malignant neoplasm of breast; Z95.2 Presence of prosthetic heart valve
CPT/HCPCS: 45380; 45385; 88305; J1610; J2405

== ENCOUNTER → 2018-07-23 | Outpatient (CLI) | payer OTHER | LOC: M RAD 10:17 | DX: I73.9 Peripheral vascular disease, unspecified (principal) | CPT/HCPCS: 93926 ==

== ENCOUNTER 2018-07-29 09:38 | Inpatient (IN) | payer OTHER, MEDICARE ==
[2018-07-29] MEDS: ONDANSETRON 4MG/2ML VIAL (J2405) IV (10:15)
[2018-07-29] MEDS: NS 1,000 ML IV ×3 (10:15→17:44)
[2018-07-29] MEDS: MORPHINE 4 MG/ML 1ML VIAL/SYRINGE (J2270) IV (10:15)
[2018-07-29 10:16] LABS: BASO % 0.3 % (0.0-1.0); EOS # 0.1 10^3/uL (0.0-0.50); EOS % 0.5 % (0.0-3.0); HEMATOCRIT 37.6 % (36.0-47.0); HEMOGLOBIN 12.3 g/dl (12.0-15.5); IMMATURE GRANULOCYTE % 0.4 % (0-3.0); LYMPH # 0.8 10^3/uL (1.5-4.5); MEAN CORPUSCULAR HEMOGLOBIN 27.6 pg (27.0-33.0); MEAN CORPUSCULAR HGB CONC 32.7 g/dl (32.0-36.5); MEAN CORPUSCULAR VOLUME 84.3 fl (80.0-96.0); MONO # 0.8 10^3/uL (0.0-0.8); MONO % 6.4 % (0.0-5.0); NEUTROPHILS # 10.1 10^3/uL (1.8-7.7); NEUTROPHILS % 85.4 % (36.0-66.0); PLATELET COUNT, AUTOMATED 178 10^3/uL (150-450); RED BLOOD COUNT 4.46 10^6/uL (4.00-5.40); RED CELL DISTRIBUTION WIDTH 16.1 % (11.5-14.5); WHITE BLOOD COUNT 11.9 10^3/uL (4.0-10.0)
[2018-07-29 10:28] LABS: INR 1.34; PARTIAL THROMBOPLASTIN TIME 33.1 SECONDS (25.4-37.6); PROTHROMBIN TIME 16.8 SECONDS (12.1-14.4)
[2018-07-29] MEDS: NS 500 ML IV (10:30)
[2018-07-29] MEDS: GI COCKTAIL 50ML BTL(HYOSCYAMINE/MAALOX/LIDOCAINE VISCOUS)(1:3:1) PO (10:35)
[2018-07-29] MEDS ORDERED: ISOVUE-370 76% 100ML VIAL (Q9967) As Ordered (10:37)
[2018-07-29 10:57] LABS: ALBUMIN 3.5 GM/DL (3.2-5.2); ALBUMIN/GLOBULIN RATIO 0.97 (1.00-1.93); ALKALINE PHOSPHATASE 116 U/L (45-117); ALT/SGPT 32 U/L (12-78); AMYLASE 40 U/L (25-115); ANION GAP 8 MEQ/L (8-16); AST/SGOT 24 U/L (7-37); BILIRUBIN,DIRECT 0.2 MG/DL (0.0-0.2); BILIRUBIN,TOTAL 0.5 MG/DL (0.2-1.0); BLOOD UREA NITROGEN 36 MG/DL (7-18); CALCIUM LEVEL 8.8 MG/DL (8.8-10.2); CARBON DIOXIDE LEVEL 29 MEQ/L (21-32); CHLORIDE LEVEL 101 MEQ/L (98-107); CPK CREATINE PHOSPHOKINASE 81 U/L (26-192); CREATININE FOR GFR 1.49 MG/DL (0.55-1.30); GLOMERULAR FILTRATION RATE 37.3 (>45); GLUCOSE, FASTING 236 MG/DL (70-100); LIPASE 303 U/L (73-393); MB/CK RELATIVE INDEX 1.85 (< OR =4); POTASSIUM SERUM 4.4 MEQ/L (3.5-5.1); SODIUM LEVEL 138 MEQ/L (136-145); TOTAL PROTEIN 7.1 GM/DL (6.4-8.2); TROPONIN I < 0.02 NG/ML (< 0.10)
[2018-07-29] MEDS: LORazepam 2 MG/ML VIAL (J2060) IV (11:03)
[2018-07-29] MEDS: KETOROLAC 30 MG/ML VIAL (J1885) IV ×2 (11:53→22:17)
[2018-07-29 12:47] LABS: CPK CREATINE PHOSPHOKINASE 76 U/L (26-192); MB/CK RELATIVE INDEX 1.84 (< OR =4); TROPONIN I < 0.02 NG/ML (< 0.10)
[2018-07-29] MEDS: PIPERACILLIN/TAZOBACTAM SOD 4.5 GM in D5W MINI-BAG PLUS 50 ML IV (13:38)
[2018-07-29] MEDS ORDERED: NS 1,000 ML IV (13:45)
[2018-07-29 14:06] LABS: KETONE, URINE AUTO RFX NEGATIVE (NEGATIVE); LEUKOCYTE ESTERASE UR AUTO RFX NEGATIVE (NEGATIVE); MUCUS, URINE RFX SMALL (NEGATIVE); NITRITE, URINE AUTO RFX NEGATIVE (NEGATIVE); RBC, URINE AUTO RFX 3 /HPF (0-3); SPECIFIC GRAVITY UR AUTO RFX 1.032 (1.002-1.035); SQUAM EPITHELIAL CELL UR AURFX 3 /HPF (0-6); WBC, URINE AUTO RFX 2 /HPF (0-3)
[2018-07-29] MEDS ORDERED: MORPHINE 4 MG/ML 1ML VIAL/SYRINGE (J2270) IV ×2 (14:45→18:30)
[2018-07-29] MEDS ORDERED: ONDANSETRON 4MG/2ML VIAL (J2405) IV (14:45)
[2018-07-29] MEDS: PANTOPRAZOLE 40MG INJ (PROTONIX) (C9113) IV (16:40)
[2018-07-29 16:44] LABS: BEDSIDE GLUCOSE 224 MG/DL (80-115)
[2018-07-29] MEDS ORDERED: DEXTROSE 50% 50 ML SYRINGE IV (18:30)
[2018-07-29] MEDS ORDERED: GLUCAGON FOR INJ 1 MG VIAL (J1610) SC (18:30)
[2018-07-29] MEDS ORDERED: GLUCOSE 4 GM CHEW TABLET PO (18:30)
[2018-07-29] MEDS: ACETAMINOPHEN 650 MG SUPP PR (19:17)
[2018-07-29 20:09] LABS: BEDSIDE GLUCOSE 193 MG/DL (80-115)
[2018-07-29] MEDS: PIPERACILLIN/TAZOBACTAM SOD 2.25 GM in D5W MINI-BAG PLUS 50 ML IV (22:17)
[2018-07-29] MEDS: GENTAMICIN SULFATE 0.1% OINT 15 GM TOP (22:18)
[2018-07-30 04:03] LABS: BEDSIDE GLUCOSE 188 MG/DL (80-115)
[2018-07-30] MEDS: PIPERACILLIN/TAZOBACTAM SOD 2.25 GM in D5W MINI-BAG PLUS 50 ML IV ×3 (05:20→22:41)
[2018-07-30] MEDS: NS 1,000 ML IV ×2 (05:24→17:18)
[2018-07-30] MEDS: HYDROMORPHONE HCL 0.5 MG/ 0.5 ML SYRINGE (J1170 PER 1) IV ×6 (06:10→23:58)
[2018-07-30 06:17] LABS: HEMATOCRIT 37.4 % (36.0-47.0); HEMOGLOBIN 12.2 g/dl (12.0-15.5); MEAN CORPUSCULAR HEMOGLOBIN 27.8 pg (27.0-33.0); MEAN CORPUSCULAR HGB CONC 32.6 g/dl (32.0-36.5); MEAN CORPUSCULAR VOLUME 85.2 fl (80.0-96.0); PLATELET COUNT, AUTOMATED 172 10^3/uL (150-450); RED BLOOD COUNT 4.39 10^6/uL (4.00-5.40); RED CELL DISTRIBUTION WIDTH 16.5 % (11.5-14.5); WHITE BLOOD COUNT 23.7 10^3/uL (4.0-10.0)
[2018-07-30 06:27] LABS: ADD MANUAL DIFFER YES; DIFF SLIDE NUMBER 88; POSITIVE MORPH POS FLAG
[2018-07-30 06:44] LABS: ALBUMIN 2.9 GM/DL (3.2-5.2); ALBUMIN/GLOBULIN RATIO 0.69 (1.00-1.93); ALKALINE PHOSPHATASE 258 U/L (45-117); ALT/SGPT 591 U/L (12-78); ANION GAP 9 MEQ/L (8-16); AST/SGOT 490 U/L (7-37); BILIRUBIN,TOTAL 1.7 MG/DL (0.2-1.0); BLOOD UREA NITROGEN 35 MG/DL (7-18); CALCIUM LEVEL 8.8 MG/DL (8.8-10.2); CARBON DIOXIDE LEVEL 27 MEQ/L (21-32); CHLORIDE LEVEL 107 MEQ/L (98-107); CREATININE FOR GFR 1.87 MG/DL (0.55-1.30); GLOMERULAR FILTRATION RATE 28.7 (>45); GLUCOSE, FASTING 194 MG/DL (70-100); POTASSIUM SERUM 4.6 MEQ/L (3.5-5.1); SODIUM LEVEL 143 MEQ/L (136-145); TOTAL PROTEIN 7.1 GM/DL (6.4-8.2)
[2018-07-30 06:58] LABS: ATYPICAL LYMPH 1 % (0-5); LYMPHOCYTES 2 % (16-52); MONOCYTES 4 % (0-8); NEUTROPHILS 93 % (35-75); PLATELET ESTIMATE NORMAL (NORMAL)
[2018-07-30 06:59] LABS: ANISOCYTOSIS 1+; POIKILOCYTOSIS 1+; TOXIC VACUOLATION 1+
[2018-07-30 09:22] LABS: INR 1.53; PROTHROMBIN TIME 18.6 SECONDS (12.1-14.4)
[2018-07-30 09:24] LABS: LACTIC ACID SEPSIS PROTOCOL 1.7 MMOL/L (0.4-2.0)
[2018-07-30] MEDS: PANTOPRAZOLE 40MG INJ (PROTONIX) (C9113) IV (09:37)
[2018-07-30] MEDS: GENTAMICIN SULFATE 0.1% OINT 15 GM TOP ×3 (09:38→21:00)
[2018-07-30 11:45] LABS: BEDSIDE GLUCOSE 226 MG/DL (80-115)
[2018-07-30 13:57] LABS: HEMOGLOBIN 11.6 g/dl (12.0-15.5); MEAN CORPUSCULAR HEMOGLOBIN 27.9 pg (27.0-33.0); MEAN CORPUSCULAR HGB CONC 32.2 g/dl (32.0-36.5); MEAN CORPUSCULAR VOLUME 86.5 fl (80.0-96.0); PLATELET COUNT, AUTOMATED 147 10^3/uL (150-450); RED BLOOD COUNT 4.16 10^6/uL (4.00-5.40); RED CELL DISTRIBUTION WIDTH 16.9 % (11.5-14.5); WHITE BLOOD COUNT 22.7 10^3/uL (4.0-10.0)
[2018-07-30 14:32] LABS: ALBUMIN 2.7 GM/DL (3.2-5.2); ALBUMIN/GLOBULIN RATIO 0.82 (1.00-1.93); ALKALINE PHOSPHATASE 234 U/L (45-117); ALT/SGPT 487 U/L (12-78); ANION GAP 9 MEQ/L (8-16); AST/SGOT 310 U/L (7-37); BILIRUBIN,DIRECT 1.7 MG/DL (0.0-0.2); BILIRUBIN,TOTAL 2.3 MG/DL (0.2-1.0); BLOOD UREA NITROGEN 34 MG/DL (7-18); CALCIUM LEVEL 8.3 MG/DL (8.8-10.2); CARBON DIOXIDE LEVEL 26 MEQ/L (21-32); CHLORIDE LEVEL 110 MEQ/L (98-107); CREATININE FOR GFR 1.71 MG/DL (0.55-1.30); GLOMERULAR FILTRATION RATE 31.8 (>45); GLUCOSE, FASTING 223 MG/DL (70-100); POTASSIUM SERUM 4.6 MEQ/L (3.5-5.1); SODIUM LEVEL 145 MEQ/L (136-145)
[2018-07-30 16:55] LABS: BEDSIDE GLUCOSE 227 MG/DL (80-115)
[2018-07-30] MEDS: metroNIDAZOLE 500 MG in APPROPRIATE DILUENT 1 EA IV (19:01)
[2018-07-30 20:21] LABS: BEDSIDE GLUCOSE 221 MG/DL (80-115)
[2018-07-30 23:34] LABS: BEDSIDE GLUCOSE 231 MG/DL (80-115)
[2018-07-31] MEDS: metroNIDAZOLE 500 MG in APPROPRIATE DILUENT 1 EA IV ×3 (02:17→18:00)
[2018-07-31] MEDS: PIPERACILLIN/TAZOBACTAM SOD 2.25 GM in D5W MINI-BAG PLUS 50 ML IV ×3 (05:20→23:39)
[2018-07-31] MEDS: NS 1,000 ML IV ×3 (05:20→23:53)
[2018-07-31 06:03] LABS: HEMATOCRIT 36.2 % (36.0-47.0); HEMOGLOBIN 11.4 g/dl (12.0-15.5); MEAN CORPUSCULAR HEMOGLOBIN 27.9 pg (27.0-33.0); MEAN CORPUSCULAR HGB CONC 31.5 g/dl (32.0-36.5); MEAN CORPUSCULAR VOLUME 88.5 fl (80.0-96.0); PLATELET COUNT, AUTOMATED 146 10^3/uL (150-450); RED BLOOD COUNT 4.09 10^6/uL (4.00-5.40); RED CELL DISTRIBUTION WIDTH 17.3 % (11.5-14.5); WHITE BLOOD COUNT 19.4 10^3/uL (4.0-10.0)
[2018-07-31 06:05] LABS: ADD MANUAL DIFFER YES; DIFF SLIDE NUMBER 59; POSITIVE MORPH POS FLAG
[2018-07-31 06:33] LABS: ALBUMIN 2.5 GM/DL (3.2-5.2); ALBUMIN/GLOBULIN RATIO 0.58 (1.00-1.93); ALKALINE PHOSPHATASE 209 U/L (45-117); ALT/SGPT 330 U/L (12-78); ANION GAP 9 MEQ/L (8-16); AST/SGOT 129 U/L (7-37); BILIRUBIN,TOTAL 1.8 MG/DL (0.2-1.0); BLOOD UREA NITROGEN 49 MG/DL (7-18); CALCIUM LEVEL 8.9 MG/DL (8.8-10.2); CARBON DIOXIDE LEVEL 26 MEQ/L (21-32); CHLORIDE LEVEL 111 MEQ/L (98-107); CREATININE FOR GFR 1.97 MG/DL (0.55-1.30); GLUCOSE, FASTING 227 MG/DL (70-100); POTASSIUM SERUM 4.4 MEQ/L (3.5-5.1); SODIUM LEVEL 146 MEQ/L (136-145); TOTAL PROTEIN 6.8 GM/DL (6.4-8.2)
[2018-07-31 06:56] LABS: ANISOCYTOSIS 1+; BANDS 7 % (< 11); LYMPHOCYTES 3 % (16-52); METAMYELOCYTES 1 % (0-0); MONOCYTES 5 % (0-8); NEUTROPHILS 84 % (35-75); PLATELET ESTIMATE NORMAL (NORMAL)
[2018-07-31 06:57] LABS: POLYCHROMASIA 1+
[2018-07-31] MEDS: HYDROMORPHONE HCL 0.5 MG/ 0.5 ML SYRINGE (J1170 PER 1) IV ×2 (07:56→12:15)
[2018-07-31] MEDS: PANTOPRAZOLE 40MG INJ (PROTONIX) (C9113) IV (07:56)
[2018-07-31] MEDS: GENTAMICIN SULFATE 0.1% OINT 15 GM TOP ×2 (07:57→21:00)
[2018-07-31 12:17] LABS: BEDSIDE GLUCOSE 214 MG/DL (80-115)
[2018-07-31 18:01] LABS: BEDSIDE GLUCOSE 228 MG/DL (80-115)
[2018-07-31] MEDS ORDERED: PROPOFOL 200 MG/20 ML VIAL As Ordered (18:29)
[2018-07-31] MEDS ORDERED: ONDANSETRON 4MG/2ML VIAL (J2405) As Ordered (18:29)
[2018-07-31] MEDS ORDERED: GLYCOPYRROLATE INJ 0.2 MG/ML 2 ML VIAL As Ordered (18:29)
[2018-07-31] MEDS ORDERED: dexameTHASONE 4 MG/ML 1ML VIAL (J1100) As Ordered (18:29)
[2018-07-31] MEDS ORDERED: NEOSTIGMINE 10 MG/10 ML VIAL (J2710) As Ordered (18:29)
[2018-07-31] MEDS ORDERED: LIDOCAINE 2% JELLY 30 ML As Ordered (18:29)
[2018-07-31] MEDS ORDERED: KETOROLAC 60 MG/2 ML VIAL (J1885) As Ordered (18:29)
[2018-07-31] MEDS ORDERED: ROCURONIUM BROMIDE 50 MG/5 ML VIAL As Ordered ×2 (18:29→20:02)
[2018-07-31] MEDS ORDERED: MIDAZOLAM INJ 2 MG/2 ML VIAL (J2250) As Ordered (18:29)
[2018-07-31] MEDS ORDERED: LIDOCAINE 2% INJ 100 MG/5 ML SDV (FOR ANES.) As Ordered (18:29)
[2018-07-31] MEDS ORDERED: fentaNYL 100 MCG/2 ML INJECTION (J3010) As Ordered (18:30)
[2018-07-31] MEDS ORDERED: fentaNYL 250 MCG/5 ML INJECTION (J3010) As Ordered (19:43)
[2018-07-31] MEDS ORDERED: METOCLOPRAMIDE INJ 10MG/2ML VIAL (J2765) As Ordered (20:01)
[2018-07-31] MEDS ORDERED: HYDROmorphone HCL 2 MG/ML 1ML VIAL (J1170) As Ordered (20:04)
[2018-07-31] MEDS: CONRAY-60 60% 50ML VIAL (Q9961) As Ordered (20:30)
[2018-07-31] MEDS ORDERED: CONRAY-60 60% 50ML VIAL (Q9961) As Ordered (21:15)
[2018-07-31] MEDS: BUPIVACAINE HCL 0.25% 30 ML VIAL As Ordered (21:27)
[2018-07-31] MEDS: BUPIVACAINE LIPOSOME/PF 1.3% 20ML VIAL (13.3MG/ML)(EXPAREL)(C9290 PER1MG) As Ordered (21:28)
[2018-07-31 22:12] LABS: BEDSIDE GLUCOSE 223 MG/DL (80-115)
[2018-07-31] MEDS ORDERED: METOCLOPRAMIDE INJ 10MG/2ML VIAL (J2765) IV (22:30)
[2018-07-31] MEDS ORDERED: fentaNYL 100 MCG/2 ML INJECTION (J3010) IV (22:30)
[2018-07-31] MEDS ORDERED: PERCOCET 5MG/325MG TAB PO (22:30)
[2018-07-31] MEDS: LR 1,000 ML IV (22:30)
[2018-07-31] MEDS ORDERED: ONDANSETRON 4MG/2ML VIAL (J2405) IV (22:30)
[2018-08-01] MEDS: metroNIDAZOLE 500 MG in APPROPRIATE DILUENT 1 EA IV ×3 (01:32→17:24)
[2018-08-01 01:42] LABS: BEDSIDE GLUCOSE 264 MG/DL (80-115)
[2018-08-01] MEDS: PIPERACILLIN/TAZOBACTAM SOD 2.25 GM in D5W MINI-BAG PLUS 50 ML IV ×3 (05:19→20:45)
[2018-08-01 05:57] LABS: BASO % 0.1 % (0.0-1.0); HEMATOCRIT 30.3 % (36.0-47.0); HEMOGLOBIN 9.6 g/dl (12.0-15.5); IMMATURE GRANULOCYTE % 1.4 % (0-3.0); LYMPH # 0.4 10^3/uL (1.5-4.5); MEAN CORPUSCULAR HEMOGLOBIN 27.8 pg (27.0-33.0); MEAN CORPUSCULAR HGB CONC 31.7 g/dl (32.0-36.5); MEAN CORPUSCULAR VOLUME 87.8 fl (80.0-96.0); MONO # 0.5 10^3/uL (0.0-0.8); NEUTROPHILS # 11.6 10^3/uL (1.8-7.7); NEUTROPHILS % 91.5 % (36.0-66.0); PLATELET COUNT, AUTOMATED 138 10^3/uL (150-450); RED BLOOD COUNT 3.45 10^6/uL (4.00-5.40); RED CELL DISTRIBUTION WIDTH 17.2 % (11.5-14.5); WHITE BLOOD COUNT 12.6 10^3/uL (4.0-10.0)
[2018-08-01 06:19] LABS: ALBUMIN 1.9 GM/DL (3.2-5.2); ALKALINE PHOSPHATASE 195 U/L (45-117); ALT/SGPT 226 U/L (12-78); AMYLASE 15 U/L (25-115); ANION GAP 5 MEQ/L (8-16); AST/SGOT 108 U/L (7-37); BILIRUBIN,TOTAL 0.6 MG/DL (0.2-1.0); BLOOD UREA NITROGEN 52 MG/DL (7-18); CALCIUM LEVEL 8.4 MG/DL (8.8-10.2); CARBON DIOXIDE LEVEL 27 MEQ/L (21-32); CHLORIDE LEVEL 116 MEQ/L (98-107); CREATININE FOR GFR 2.15 MG/DL (0.55-1.30); GLOMERULAR FILTRATION RATE 24.4 (>45); GLUCOSE, FASTING 274 MG/DL (70-100); LIPASE 65 U/L (73-393); MAGNESIUM LEVEL 2.6 MG/DL (1.8-2.4); POTASSIUM SERUM 4.8 MEQ/L (3.5-5.1); SODIUM LEVEL 148 MEQ/L (136-145); TOTAL PROTEIN 5.7 GM/DL (6.4-8.2)
[2018-08-01] MEDS: PANTOPRAZOLE 40MG INJ (PROTONIX) (C9113) IV (08:59)
[2018-08-01] MEDS: GENTAMICIN SULFATE 0.1% OINT 15 GM TOP ×2 (09:00→20:46)
[2018-08-01] MEDS: HYDROMORPHONE HCL 0.5 MG/ 0.5 ML SYRINGE (J1170 PER 1) IV ×2 (09:15→14:35)
[2018-08-01 11:51] LABS: BEDSIDE GLUCOSE 315 MG/DL (80-115)
[2018-08-01] MEDS: NS 1,000 ML IV (12:03)
[2018-08-01] MEDS ORDERED: GLUCAGON FOR INJ 1 MG VIAL (J1610) SC (13:30)
[2018-08-01] MEDS ORDERED: GLUCOSE 4 GM CHEW TABLET PO (13:30)
[2018-08-01] MEDS ORDERED: DEXTROSE 50% 50 ML SYRINGE IV (13:30)
[2018-08-01 17:02] LABS: BEDSIDE GLUCOSE 317 MG/DL (80-115)
[2018-08-01] MEDS: HumaLOG INSULIN (NovoLOG) PER UNIT SC ×2 (17:23→20:46)
[2018-08-01 20:08] LABS: BEDSIDE GLUCOSE 338 MG/DL (80-115)
[2018-08-02] MEDS: HYDROMORPHONE HCL 0.5 MG/ 0.5 ML SYRINGE (J1170 PER 1) IV ×2 (00:43→06:04)
[2018-08-02] MEDS: metroNIDAZOLE 500 MG in APPROPRIATE DILUENT 1 EA IV ×2 (02:40→08:46)
[2018-08-02] MEDS: PIPERACILLIN/TAZOBACTAM SOD 2.25 GM in D5W MINI-BAG PLUS 50 ML IV ×3 (05:57→20:51)
[2018-08-02 06:40] LABS: BASO % 0.1 % (0.0-1.0); EOS # 0.1 10^3/uL (0.0-0.50); EOS % 0.6 % (0.0-3.0); HEMATOCRIT 31.2 % (36.0-47.0); HEMOGLOBIN 9.9 g/dl (12.0-15.5); IMMATURE GRANULOCYTE % 0.8 % (0-3.0); LYMPH # 0.6 10^3/uL (1.5-4.5); LYMPH % 4.1 % (24.0-44.0); MEAN CORPUSCULAR HEMOGLOBIN 27.7 pg (27.0-33.0); MEAN CORPUSCULAR HGB CONC 31.7 g/dl (32.0-36.5); MEAN CORPUSCULAR VOLUME 87.4 fl (80.0-96.0); MONO # 0.7 10^3/uL (0.0-0.8); MONO % 4.6 % (0.0-5.0); NEUTROPHILS # 12.8 10^3/uL (1.8-7.7); NEUTROPHILS % 89.8 % (36.0-66.0); PLATELET COUNT, AUTOMATED 168 10^3/uL (150-450); RED BLOOD COUNT 3.57 10^6/uL (4.00-5.40); RED CELL DISTRIBUTION WIDTH 16.5 % (11.5-14.5); WHITE BLOOD COUNT 14.3 10^3/uL (4.0-10.0)
[2018-08-02 06:57] LABS: ALBUMIN 2.1 GM/DL (3.2-5.2); ALBUMIN/GLOBULIN RATIO 0.51 (1.00-1.93); ALKALINE PHOSPHATASE 173 U/L (45-117); ALT/SGPT 163 U/L (12-78); ANION GAP 7 MEQ/L (8-16); AST/SGOT 36 U/L (7-37); BILIRUBIN,TOTAL 0.4 MG/DL (0.2-1.0); BLOOD UREA NITROGEN 41 MG/DL (7-18); CALCIUM LEVEL 8.6 MG/DL (8.8-10.2); CARBON DIOXIDE LEVEL 23 MEQ/L (21-32); CHLORIDE LEVEL 112 MEQ/L (98-107); CREATININE FOR GFR 1.28 MG/DL (0.55-1.30); GLOMERULAR FILTRATION RATE 44.4 (>45); GLUCOSE, FASTING 213 MG/DL (70-100); POTASSIUM SERUM 4.1 MEQ/L (3.5-5.1); SODIUM LEVEL 142 MEQ/L (136-145); TOTAL PROTEIN 6.2 GM/DL (6.4-8.2)
[2018-08-02] MEDS: PANTOPRAZOLE 40MG TAB (PROTONIX) PO (08:44)
[2018-08-02] MEDS: GENTAMICIN SULFATE 0.1% OINT 15 GM TOP ×2 (08:45→20:49)
[2018-08-02] MEDS: HumaLOG INSULIN (NovoLOG) PER UNIT SC ×4 (08:46→20:50)
[2018-08-02] MEDS: ACETAMINOPHEN TAB 650MG DOSE (2X325MG) PO (12:07)
[2018-08-02 17:49] LABS: BEDSIDE GLUCOSE 186 MG/DL (80-115)
[2018-08-02] MEDS: SUCRALFATE 1 GM TAB PO ×2 (17:55→20:49)
[2018-08-02] MEDS: ASPIRIN 81 MG ENTERIC TAB PO (17:57)
[2018-08-02] MEDS: NORCO, ANEXSIA 5/325MG TABLET (HYDROcodone/ACETAMINOPHEN) PO (18:03)
[2018-08-02 20:08] LABS: BEDSIDE GLUCOSE 209 MG/DL (80-115)
[2018-08-02] MEDS: ADVAIR HFA 230/21MCG INHALER INH (20:40)
[2018-08-02] MEDS: LACTIC ACID 12% LOTION 225 GM BTL TOP (20:48)
[2018-08-02] MEDS: SPIRONOLACTONE 25 MG TAB PO (20:49)
[2018-08-02] MEDS: ASCORBIC ACID 500 MG TAB PO (20:49)
[2018-08-02] MEDS: GABAPENTIN 300 MG CAP PO (20:49)
[2018-08-02] MEDS: APIXABAN 5 MG TAB (ELIQUIS) PO (20:50)
[2018-08-03] MEDS: PIPERACILLIN/TAZOBACTAM SOD 2.25 GM in D5W MINI-BAG PLUS 50 ML IV (05:51)
[2018-08-03 06:39] LABS: BASO % 0.1 % (0.0-1.0); EOS # 0.2 10^3/uL (0.0-0.50); EOS % 1.7 % (0.0-3.0); HEMOGLOBIN 10.4 g/dl (12.0-15.5); LYMPH # 0.6 10^3/uL (1.5-4.5); LYMPH % 6.3 % (24.0-44.0); MEAN CORPUSCULAR HEMOGLOBIN 27.5 pg (27.0-33.0); MEAN CORPUSCULAR HGB CONC 31.5 g/dl (32.0-36.5); MEAN CORPUSCULAR VOLUME 87.3 fl (80.0-96.0); MONO # 0.7 10^3/uL (0.0-0.8); MONO % 7.5 % (0.0-5.0); NEUTROPHILS # 7.5 10^3/uL (1.8-7.7); NEUTROPHILS % 83.4 % (36.0-66.0); PLATELET COUNT, AUTOMATED 164 10^3/uL (150-450); RED BLOOD COUNT 3.78 10^6/uL (4.00-5.40); RED CELL DISTRIBUTION WIDTH 16.4 % (11.5-14.5)
[2018-08-03 07:09] LABS: ALBUMIN 2.2 GM/DL (3.2-5.2); ALBUMIN/GLOBULIN RATIO 0.56 (1.00-1.93); ALKALINE PHOSPHATASE 160 U/L (45-117); ALT/SGPT 109 U/L (12-78); ANION GAP 7 MEQ/L (8-16); AST/SGOT 21 U/L (7-37); BILIRUBIN,TOTAL 0.6 MG/DL (0.2-1.0); BLOOD UREA NITROGEN 30 MG/DL (7-18); CALCIUM LEVEL 8.8 MG/DL (8.8-10.2); CARBON DIOXIDE LEVEL 25 MEQ/L (21-32); CHLORIDE LEVEL 110 MEQ/L (98-107); CREATININE FOR GFR 0.99 MG/DL (0.55-1.30); GLOMERULAR FILTRATION RATE 59.7 (>45); GLUCOSE, FASTING 183 MG/DL (70-100); POTASSIUM SERUM 4.1 MEQ/L (3.5-5.1); SODIUM LEVEL 142 MEQ/L (136-145); TOTAL PROTEIN 6.1 GM/DL (6.4-8.2)
[2018-08-03] MEDS: FLUTICASONE PROP 0.05% NASAL SPRAY 16 GM (FLONASE) (09:09)
[2018-08-03] MEDS: PANTOPRAZOLE 40MG TAB (PROTONIX) PO (09:09)
[2018-08-03] MEDS: ASPIRIN 81 MG ENTERIC TAB PO (09:09)
[2018-08-03] MEDS: ADVAIR HFA 230/21MCG INHALER INH (09:15)
[2018-08-03] MEDS: ROSUVASTATIN 10 MG TAB (CRESTOR) PO (09:16)
[2018-08-03] MEDS: BISOPROLOL FUMARATE 5 MG TAB PO (09:16)
[2018-08-03] MEDS: SUCRALFATE 1 GM TAB PO ×2 (09:16→13:08)
[2018-08-03] MEDS: APIXABAN 5 MG TAB (ELIQUIS) PO (09:16)
[2018-08-03] MEDS: GENTAMICIN SULFATE 0.1% OINT 15 GM TOP (09:17)
[2018-08-03] MEDS: HumaLOG INSULIN (NovoLOG) PER UNIT SC ×2 (09:17→13:08)
[2018-08-03] MEDS: LACTIC ACID 12% LOTION 225 GM BTL TOP (09:17)
[2018-08-03] MEDS: NORCO, ANEXSIA 5/325MG TABLET (HYDROcodone/ACETAMINOPHEN) PO (09:25)
[2018-08-03 11:31] LABS: BEDSIDE GLUCOSE 293 MG/DL (80-115)
[2018-08-06 14:00] LABS: BEDSIDE GLUCOSE 190 MG/DL (80-115)
== END 2018-08-03 13:42 | disposition home health service (06) | DRG 412 ==
LOC: M ED 09:38 → M ED INP 14:34 → M MSPAV 16:00
PROC: 0FT40ZZ Resection of Gallbladder, Open Approach (ICD-10-PCS; principal; 2018-07-31 15:39)
PROC: 0FC90ZZ Extirpation of Matter from Common Bile Duct, Open Approach (ICD-10-PCS; 2018-07-31 15:39)
DX: K80.01 Calculus of gallbladder with acute cholecystitis with obstruction (principal); I50.32 Chronic diastolic (congestive) heart failure; N17.9 Acute kidney failure, unspecified; E11.621 Type 2 diabetes mellitus with foot ulcer; K44.9 Diaphragmatic hernia without obstruction or gangrene; I48.2 Chronic atrial fibrillation; K21.9 Gastro-esophageal reflux disease without esophagitis; E78.5 Hyperlipidemia, unspecified; I10 Essential (primary) hypertension; J44.9 Chronic obstructive pulmonary disease, unspecified; D50.9 Iron deficiency anemia, unspecified; I35.0 Nonrheumatic aortic (valve) stenosis; E53.8 Deficiency of other specified B group vitamins; K20.9 Esophagitis, unspecified; Z85.3 Personal history of malignant neoplasm of breast; Z90.11 Acquired absence of right breast and nipple; Z90.12 Acquired absence of left breast and nipple; Z79.899 Other long term (current) drug therapy; Z79.4 Long term (current) use of insulin; Z88.2 Allergy status to sulfonamides; Z79.82 Long term (current) use of aspirin; Z88.8 Allergy status to other drugs, medicaments and biological substances; E66.01 Morbid (severe) obesity due to excess calories; R16.1 Splenomegaly, not elsewhere classified

== ENCOUNTER 2018-08-12 16:38 | Inpatient (IN) | payer MEDICARE, OTHER ==
[~2018-08-12] VITALS: Ht 167.6 cm; Wt 97.5 kg
[~2018-08-12 16:38] MED LIST changes: +ACET65SU PR; +AMMO12CR4 TOP; +ASPI81TA85 PO; +Acetaminophen Tab PO; +BISO5TAB5 PO; +CALC1TAB55 PO; +CIPR500T19 PO; +DEXT50IN6 IV; +DILA1INJ2 IV; +DRIS50003 PO; +FLAG500T PO; +GENT0.1C2 TOP; +GENT1OI TOP; +GLUC1INJ21 SC; +GLUC4CHW19 PO; +IRBE75TA5 PO; +LANTINJ4 SC; +NEUR300C PO; +NORCOTAB PO; +NOVOINJ3 SC; +ONDA4VLL IV; +PROAAER10 INH; +PROT40IN4 IV; +RANI300T PO; +REGL5TAB2 PO; +RHOP0.02 OU; +SUCR1TA PO; +VITA500T PO; +ZOFR4TAB16 PO; +ZOSY1SOL4 IV; +[UNRECOGNIZED DRUG - CODE] IV
[2018-08-12] MEDS ORDERED: NS 1,000 ML IV SCH (17:22)
[2018-08-12] MEDS ORDERED: NS 500 ML IV ONE (17:30)
[2018-08-12 17:52] LABS: BASO # 0.1 10^3/uL (0.0-0.2); BASO % 0.3 % (0.0-1.0); EOS # 0.2 10^3/uL (0.0-0.50); EOS % 1.3 % (0.0-3.0); HEMATOCRIT 34.8 % (36.0-47.0); LYMPH # 1.6 10^3/uL (1.5-4.5); MEAN CORPUSCULAR HEMOGLOBIN 27.6 pg (27.0-33.0); MEAN CORPUSCULAR HGB CONC 34.5 g/dl (32.0-36.5); MONO # 1.3 10^3/uL (0.0-0.8); MONO % 7.4 % (0.0-5.0); NEUTROPHILS # 14.2 10^3/uL (1.8-7.7); NEUTROPHILS % 81.5 % (36.0-66.0); PLATELET COUNT, AUTOMATED 277 10^3/uL (150-450); RED BLOOD COUNT 4.35 10^6/uL (4.00-5.40); WHITE BLOOD COUNT 17.4 10^3/uL (4.0-10.0)
[2018-08-12] MEDS ORDERED: NORC1TAB4 PO (18:07)
[2018-08-12] MEDS ORDERED: GLUC4CHW19 PO (18:07)
[2018-08-12 18:08] LABS: INR 1.68; PROTHROMBIN TIME 20.1 SECONDS (12.1-14.4)
[2018-08-12] MEDS ORDERED: METR-201 PO (18:12)
[2018-08-12] MEDS ORDERED: ONDA4TAB5 PO (18:12)
[2018-08-12] MEDS ORDERED: IRBE75TA5 PO (18:12)
[2018-08-12] MEDS ORDERED: CEFAD50CA PO (18:12)
[2018-08-12 18:20] LABS: ALBUMIN 3.2 GM/DL (3.2-5.2); BILIRUBIN,DIRECT 0.2 MG/DL (0.0-0.2); BILIRUBIN,TOTAL 0.5 MG/DL (0.2-1.0); CALCIUM LEVEL 8.8 MG/DL (8.8-10.2); CREATININE FOR GFR 3.9 MG/DL (0.55-1.30); GLOMERULAR FILTRATION RATE 12.3 (>45); POTASSIUM SERUM 5.3 MEQ/L (3.5-5.1); TOTAL PROTEIN 7.4 GM/DL (6.4-8.2)
--- NOTE | 2018-08-12 19:07 | REPVR ---
EXAM: US Retroperitoneal Limited, Kidneys EXAM DATE/TIME: 08/12/2018 6:26 PM CLINICAL HISTORY: 67 years old, female; Signs and symptoms; Other: Abnormal blood work; Additional info: Baljit TECHNIQUE: Real-time ultrasound of the retroperitoneum with image documentation. Examination was focused on the kidneys. COMPARISON: GALLBLADDER US 07/29/2018 12:30 PM FINDINGS: Right kidney: The right kidney measures 10.2 x 5.3 x 5.2 cm. No hydronephrosis Left kidney: The left kidney measures 10.9 x 5.1 x 4.5 cm. No hydronephrosis IMPRESSION: Electronically signed by: Ana Peterson On 08/12/2018 19:07:23 PM
[2018-08-12] MEDS: NS 1,000 ML IV SCH (20:21)
[2018-08-12] MEDS ORDERED: ACETAMINOPHEN TAB 650MG DOSE (2X325MG) PO PRN (20:30)
[2018-08-12] MEDS ORDERED: LACTIC ACID 12% LOTION 225 GM BTL TOP PRN (20:45)
[2018-08-12] MEDS ORDERED: ALBUTEROL 90 MCG/ACT 8GM HFA INHALER INH PRN (20:45)
[2018-08-12] MEDS ORDERED: ONDANSETRON 4 MG TAB (S0181) PO PRN (20:45)
[2018-08-12] MEDS ORDERED: FLUTICASONE PROP 0.05% NASAL SPRAY 16 GM (FLONASE) PRN (20:45)
[2018-08-12] MEDS ORDERED: VITAMIN D 50,000 UNITS CAPSULE (ERGOCALCIFEROL 1.25MG) PO SCH (21:00)
--- NOTE | 2018-08-12 21:13 | HPEPDOC ---
[facility] Medical History & Physical Date of Admission Aug 12, 2018 Primary Care Physician: Nabil Lennon M.D. Attending Physician: JAILYN FRENCH MD History and Physical PRIMARY CARE PROVIDER: Dr. Nabil Lennon ATTENDING: Dr. French CHIEF COMPLAINT: Elevated BUN/creatinine HISTORY OF PRESENT ILLNESS: Patient is a 67-year-old female status post cholecystectomy on 07/31/2018 who presented to the emergency department after getting blood work done at Dr. Carballo's office status post open cholecystectomy with 2 drains placed on 07/31/18. She had one drain removed in the office and sandra taken out. Her lab work revealed elevated BUN and creatinine. She states that following her discharge from the hospital after the cholecystectomy she was feeling well, but had a poor appetite and was not drinking very many fluids. Several days following her discharge she resumed her home medications and she began to feel dizzy when she stood up and experienced associated nausea. She denies any fevers, chills, sore throat, chest pain, coughing, dyspnea, abdominal pain, current nausea, vomiting, constipation, tejas rrhea. She does admit to dark urine, but denies any hematuria or dysuria. PAST MEDICAL HISTORY: CHF, last echo done prior to aortic valve repair in 2010 Atrial Fibrillation on eliquis Hypertension Type 2 diabetes duodenal ulcer Dyslipidemia COPD Obstructive sleep apnea Diabetic retinopathy status post laser eye surgery History of breast cancer status post mastectomy PAST SURGICAL HISTORY: Hysterectomy (1982) Gastric bypass (2006) Bladder elevation (1982) Bilateral mastectomy (03/2016) Aortic Valve repair (2010) Cholecystectomy (07/2018) SOCIAL HISTORY: She quit smoking 17 years ago (2 ppd for 30 years), denies illicit drug use including marijuana, heroin, cocaine, PCP. Denies any alcohol use. Lives at home with her and 2 dogs. 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 FAMILY HISTORY: Noncontributory ALLERGIES: Please see below. REVIEW OF SYSTEMS: GENERAL: Denies fevers, chills, recent unexpected weight change, hemoptysis HEENT: Denies headache, admits to dizziness on standing, denies vision changes, hearing loss, sore throat CARDIOVASCULAR: Denies chest pain,palpitations RESPIRATORY: Denies shortness of breath, wheezing, cough GASTROINTESTINAL: Admits to nausea on standing, denies vomiting, abdominal pain, constipation, diarrhea, bloody stool GENITOURINARY: Denies dysuria,urinary urgency, hematuria. MUSCULOSKELETAL: Denies muscle/joint pain, weakness, stiffness NEUROLOGICAL: Denies any numbness/tingling, focal weakness, or syncope HOME MEDICATIONS: Please see below. PHYSICAL EXAMINATION: Vitals: (see below) General: No acute distress, laying comfortably in bed. HEENT: Normocephalic, atraumatic. EOMI. Moist mucous membranes. Neck: No JVD or lymphadenopathy Cardiac: RRR, normal S1 and S2. No murmurs, gallops, rubs. Pulm: Clear to auscultation b/l. No wheezing, crackles, rhonchi Abd: Obese abdomen. Cholecystectomy scar in right upper quadrant clear dry nonindurated. Drain placed in right flank. Belly is soft, non-tender, non- distended, no guarding, rebound tenderness, or rigidity. BSx4. Ext: No edema or cyanosis Neuro: CN 3-12 grossly intact. Sensation to fine touch intact. LABORATORY DATA: See below. IMAGIN08/12/18 renal ultrasound: No hydronephrosis. MICROBIOLOGY: Please see below. ASSESSMENT/PLAN: Patient is a 67-year-old female with poor oral intake and on diuretics status post cholecystectomy presenting with acute kidney injury. #. Acute kidney injury likely secondary to dehydration Starting patient on normal saline at a rate of 150 mL/hour, stopping after 2 L of fluid as patient has history of CHF Renal ultrasound negative, ordering urine creatinine, sodium to assess for other intrinsic renal causes of LEON Holding nephrotoxic medications Consider nephrology consult in a.m. pending improvement in creatinine. Obtaining urinalysis with reflex culture to assess for infectious causes of kidney injury. #. Leukocytosis Patient not complaining or showing signs of acute infection, leukocytosis is likely reactionary to dehydration We'll continue to monitor #. Elevated Lipase Patient not complaining of any abdominal pain, this could be secondary to dehydration We will continue to monitor for changes in patient's condition. #. Non-anion gap metabolic acidosis Patient's bicarbonate levels are low(19), we'll consider replacement in a.m. if bicarbonate levels fail to improve #. Hyponatremia/hyperkalemia Likely secondary to the diuretics the patient has been on, these are being held. #. Type 2 diabetes Sliding scale insulin Patient states she has been taking less of her long-acting insulin, so we will give her half of her usual dose in the morning (40 units). #. CHF Holding diuretics #. Hypertension Holding nephrotoxic antihypertensive occasions #. Atrial fibrillation Continue diltiazem and eliquis #. COPD Continue home medications #. Diabetic neuropathy Continue gabapentin #. Cholecystectomy incision/drain Can consult surgery as needed for input Continue oral pain medications and anti-nausea medications. #. Hx of duodenal ulcer Patient is on IV Protonix once a day #. Obstructive sleep apnea Follow DAVIDSON protocol, the patient has home CPAP okay to use -DVT prophy: On eliquis Disposition: Patient will be admitted to the family medicine service beginning tomorrow at 7 AM. Vital Signs Vital Signs Date Time Temp Pulse Resp B/P (MAP) Pulse Ox O2 Delivery O2 Flow Rate FiO2 08/12/18 18:11 08/12/18 18:00 62 97 08/12/18 16:39 96.3 17 Laboratory Data Labs 24H Laboratory Tests 2 08/12/18 17:35: Anion Gap 11, Glomerular Filtration Rate 12.3L, Calcium Level 8.8, Aspartate Amino Transf (AST/SGOT) 14, Alanine Aminotransferase (ALT/SGPT) 19, Alkaline Phosphatase 126H, Total Bilirubin 0.5, Direct Bilirubin 0.2, Total Protein 7.4, Albumin 3.2, Albumin/Globulin Ratio 0.76L, Lipase 1146H 08/12/18 17:36: Immature Granulocyte % (Auto) 0.5, White Blood Count 17.4H, Red Blood Count 4.35, Hemoglobin 12.0, Hematocrit 34.8L, Mean Corpuscular Volume 80.0, Mean Corpuscular Hemoglobin 27.6, Mean Corpuscular Hemoglobin Concent 34.5, Red Cell Distribution Width 16.0H, Platelet Count 277, Neutrophils (%) (Auto) 81.5H, Lymphocytes (%) (Auto) 9.0L, Monocytes (%) (Auto) 7.4H, Eosinophils (%) (Auto) 1.3, Basophils (%) (Auto) 0.3, Neutrophils # (Auto) 14.2H, Lymphocytes # (Auto) 1.6, Monocytes # (Auto) 1.3H, Eosinophils # (Auto) 0.2, Basophils # (Auto) 0.1, Nucleated Red Blood Cells % (auto) 0.0, Osmolality 299, Lactic Acid Level 0.9 08/12/18 17:43: Prothrombin Time 20.1H, Prothromb Time International Ratio 1.68 CBC/BMP Laboratory Tests 08/12/18 17:35 08/12/18 17:36 Red Blood Count 4.35, Mean Corpuscular Volume 80.0, Mean Corpuscular Hemoglobin 27.6, Mean Corpuscular Hemoglobin Concent 34.5, Red Cell Distribution Width 16.0 H, Neutrophils (%) (Auto) 81.5 H, Lymphocytes (%) (Auto) 9.0 L, Monocytes (%) (Auto) 7.4 H, Eosinophils (%) (Auto) 1.3, Basophils (%) (Auto) 0.3, Neutrophils # (Auto) 14.2 H, Lymphocytes # (Auto) 1.6, Monocytes # (Auto) 1.3 H, Eosinophils # (Auto) 0.2, Basophils # (Auto) 0.1 Microbiology Microbiology 08/12/18 Blood Culture, Received Pending 08/12/18 Blood Culture, Received Pending Home Medications Scheduled (Rhopressa) 0.02 % Imelda, 1 DROP OU QHS (Simbrinza 1-0.2 %) 1 Shaniqua Shaniqua, 1 DROP OU BID (Calcium 600+D3 600-400 mg-Unit) 1 Tab Tab, 1 TAB PO QAM (Dexilant) 60 Mg Cap, 60 MG PO ACS Apixaban Base (Eliquis) 5 Mg Tab, 5 MG PO BID Ascorbic Acid (Vitamin C) 500 Mg Tab, 500 MG PO QHS Aspirin (Aspir-81) 81 Mg Tab, 81 MG PO QAM Bisoprolol Fumarate (Bisoprolol Fumarate) 5 Mg Tab, 5 MG PO QAM Cefadroxil Monohydrate (Cefadroxil) 500 Mg Cap, 1,000 MG PO BID PUT ON HOLD AFTER SURGERY ON 07/31 Diltiazem HCl (Diltiazem HCl) 30 Mg Tab, 30 MG PO BID Ferrous Sulfate (Ferrous Sulfate) 325 Mg Tab, 325 MG PO QHS PUT ON HOLD AFTER SURGERY ON 07/31 Gabapentin (Neurontin) 300 Mg Cap, 300 MG PO QHS Gentamicin Sulfate (Gentamicin Sulfate) 0.1 % Cre, 1 APLCT TOP DAILY APPLY TO ULCER ON TOE Insulin Aspart (Novolog Flexpen) 100 Unit/Ml Inj, 0 SC AC PER SLIDING SCALE Insulin Glargine (Lantus Solostar) 100 Unit/Ml Inj, 100 UNITS SC QAM Insulin Glargine (Lantus Solostar) 100 Unit/Ml Inj, 95 UNITS SC QHS Irbesartan (Irbesartan) 75 Mg Tab, 75 MG PO DAILY Metoclopramide Hcl (Reglan) 5 Mg Tab, 5 MG PO BID Metronidazole (Metronidazole) 500 Mg Tab, 500 MG PO Q8H HAS ONE DAY LEFT OF COURSE Potassium Chloride (Klor-Con M10) 10 Meq Tabcr, 10 MEQ PO DAILY Ranitidine HCl (Ranitidine HCl) 300 Mg Tab, 1 TAB PO ACS Rosuvastatin Calcium (Crestor) 20 Mg Tab, 20 MG PO QAM Salmeterol/Fluticasone (Advair Diskus 500-50 Mcg/Dose) 28 Puff/Inhaler Aerp, 1 PUFF INH BID Spironolactone (Spironolactone) 25 Mg Tab, 25 MG PO QHS Sucralfate (Carafate) 1 Gm Tab, 1 GM PO BID Torsemide (Torsemide) 10 Mg Tab, 30 MG PO QAM Torsemide (Torsemide) 10 Mg Tab, 20 MG PO QHS Vitamin D (Drisdol) 50,000 Unit Cap, 50,000 UNIT PO 1XWK TAKES EVERY FRIDAY IN THE EVENING Scheduled PRN Acetaminophen/Hydrocodone ([place] 5-325 mg) 1 Tab Tab, 1 TAB PO Q4H PRN for PAIN Albuterol Sulfate (Proair Hfa) 108 Mcg/Act Aer, 2 PUFF INH DAILY PRN for SOB/COUGH Ammonium Lactate (Ammonium Lactate) 12 % Cre, 1 DOSE TOP BID PRN for DRY SKIN APPLY TO FEET Glucose (Glucose) 4 Gm Chw, 4 GM PO for LOW BLOOD SUGAR Mometasone Furoate Monohydrate (Nasonex) 120 Toxey/17 Gm Naspr, 1 SPRAY NA DAILY PRN for NASAL CONGESTION Ondansetron HCl (Ondansetron HCl) 4 Mg Tab, 4 MG PO Q6H PRN for NAUSEA OR VOMITING Allergies Coded Allergies: Sulfa Drugs (Verified Allergy, Severe, RASH, ANAPHYLAXIS, 07/01/18) Sulfa Drugs Cross Reactors (Verified Allergy, Severe, RASH, ANAPHYLAXIS, 07/01/18) Neomycin (Verified Allergy, Intermediate, RASH, 07/01/18) Ramipril (Verified Adverse Reaction, Mild, COUGH, 07/01/18) GME ATTESTATION GME ATTESTATION My faculty preceptor for this patient encounter was physically present during the encounter and was fully available. All aspects of the patient interview, examination, medical decision making process, and medical care plan development were reviewed and approved by the faculty preceptor. The faculty preceptor is aware and concurs with the plan as stated in the body of this note and will attest to such by his/her cosignature. KAYLA LEAL DO Aug 12, 2018 21:13 JAILYN FRENCH MD Aug 13, 2018 02:01
[2018-08-12] MEDS ORDERED: DEXTROSE 50% 50 ML SYRINGE IV PRN (21:30)
[2018-08-12] MEDS ORDERED: GLUCOSE 4 GM CHEW TABLET PO PRN (21:30)
[2018-08-12] MEDS ORDERED: GLUCAGON FOR INJ 1 MG VIAL (J1610) SC PRN (21:30)
[2018-08-12 22:55] LABS: CREATININE,RANDOM URINE 69.3 MG/DL
[2018-08-12 23:30] VITALS: BP 118/58
[2018-08-13] MEDS: ASCORBIC ACID 500 MG TAB PO SCH ×2 (00:05→21:08)
[2018-08-13] MEDS: FERROUS SULFATE 325MG TAB PO SCH ×2 (00:05→21:08)
[2018-08-13] MEDS: SUCRALFATE 1 GM TAB PO SCH ×3 (00:05→21:08)
[2018-08-13] MEDS: APIXABAN 5 MG TAB (ELIQUIS) PO SCH ×3 (00:05→21:08)
[2018-08-13] MEDS: GABAPENTIN 300 MG CAP PO SCH ×2 (00:05→21:11)
[2018-08-13] MEDS: metroNIDAZOLE (FLAGYL) 500 MG TAB PO SCH ×4 (00:06→21:08)
[2018-08-13] MEDS: METOCLOPRAMIDE 5 MG TAB PO SCH ×3 (00:06→21:08)
[2018-08-13] MEDS: NS 1,000 ML IV SCH ×4 (00:07→16:10)
[2018-08-13] MEDS: HumaLOG INSULIN (NovoLOG) PER UNIT SC SCH ×5 (00:07→20:58)
[2018-08-13] MEDS: PANTOPRAZOLE 40MG INJ (PROTONIX) (C9113) IV SCH ×2 (00:07→21:11)
[2018-08-13] MEDS: ADVAIR HFA 230/21MCG INHALER INH SCH ×3 (03:52→20:28)
[2018-08-13 05:50] LABS: HEMATOCRIT 29.9 % (36.0-47.0); HEMOGLOBIN 10.1 g/dl (12.0-15.5); MEAN CORPUSCULAR HEMOGLOBIN 27.2 pg (27.0-33.0); MEAN CORPUSCULAR HGB CONC 33.8 g/dl (32.0-36.5); MEAN CORPUSCULAR VOLUME 80.6 fl (80.0-96.0); PLATELET COUNT, AUTOMATED 221 10^3/uL (150-450); RED BLOOD COUNT 3.71 10^6/uL (4.00-5.40); WHITE BLOOD COUNT 16.1 10^3/uL (4.0-10.0)
[2018-08-13 06:00] VITALS: BP 121/62
[2018-08-13 06:10] LABS: CALCIUM LEVEL 8.2 MG/DL (8.8-10.2); CREATININE FOR GFR 3.13 MG/DL (0.55-1.30); GLOMERULAR FILTRATION RATE 15.8 (>45); POTASSIUM SERUM 5.2 MEQ/L (3.5-5.1)
[2018-08-13] MEDS: ROSUVASTATIN 10 MG TAB (CRESTOR) PO SCH (08:40)
[2018-08-13] MEDS: ASPIRIN 81 MG ENTERIC TAB PO SCH (08:40)
[2018-08-13] MEDS: BISOPROLOL FUMARATE 5 MG TAB PO SCH (08:43)
[2018-08-13] MEDS: LEVEMIR (INSULIN DETEMIR) 1 UNITS/0.01ML SC SCH (08:44)
--- NOTE | 2018-08-13 10:31 | IPNPDOC ---
Subjective Date Seen The patient was seen on 08/13/18. Subjective Chief Complaint/HPI Pt this morning feeling a bit better. She states that her energy is slightly better, she denies pain, N/V. She ate eggs and toast for breakfast. General: Reports: Fatigue Constitutional: Denies: Chills, Fever ENT: Denies: Head Aches Pulmonary: Denies: Dyspnea, Cough Cardiovascular: Denies: Chest Pain, Palpitations Gastrointestinal: Denies: Nausea, Vomiting, Abdominal Pain, Diarrhea, Constipation Neurological: Reports: Weakness Psych: Reports: Mood Normal Objective Physical Examination General Exam: Positive: Alert, No Acute Distress ENT Exam: Positive: Mucous membr. moist/pink Neck Exam: Positive: Supple; Negative: JVD Chest Exam: Positive: Clear to auscultation, Normal air movement Heart Exam: Positive: Rate Normal, Normal S1, Normal S2, Murmurs Abdomen Exam: Positive: Normal bowel sounds, Soft (+ RUQ drain); Negative: Tenderness Extremity Exam: Negative: Edema Neuro Exam: Positive: Normal Speech Psych Exam: Positive: Mood NL Assessment /Plan Problems (1) LEON (acute kidney injury) Status: Acute Response to Treatment: Stable, Improving Discussed With: Patient Problem Specific Plan: Monitor Clinically, Repeat Labs Problem Text: 08/13/18 Scr down from 3.9 to 3.13, baseline 1, cont with IVF will reduce rate from 150 to 75 cc/hr. She is tolerated a Cons Carb diet. Cont to monitor renal function. Renal US neg. Urine culture pending. (2) Dehydration Status: Acute Response to Treatment: Stable, Improving Problem Specific Plan: Monitor Clinically, Repeat Labs Problem Text: See above. (3) Hyponatremia Problem Text: Na improved from 128 to 134, cont to monitor. (4) DM2 (diabetes mellitus, type 2) Status: Chronic Response to Treatment: Stable Problem Specific Plan: Monitor Clinically Problem Text: Cont SSI coverage (5) A-fib Status: Chronic Response to Treatment: Stable Problem Specific Plan: Repeat Labs Problem Text: Cont Diltiazem, Eliquis. (6) Hyperkalemia Status: Acute Response to Treatment: Improving Discussed With: Patient Problem Specific Plan: Monitor Clinically, Repeat Labs Problem Text: Improved slightly with IVf from 5.3 to 5.2, cont IVF, monitor. (7) Leukocytosis Status: Acute Problem Specific Plan: Monitor Clinically, Repeat Labs Problem Text: Improved slightly overnight, from 17.4 to 16.1, monitor closely, suspect primarily related to dehydration. (8) Cholelithiases Status: Acute Response to Treatment: Stable, Improving Discussed With: Patient Problem Specific Plan: Monitor Clinically, Repeat Labs Problem Text: Pt s/p cholecystectomy with drain in place, mgmt per Dr Stack. Plan/VTE VTE Prophylaxis Ordered?: Yes VS, I&O, 24H, Fishbone Vital Signs/I&O Vital Signs Date Time Temp Pulse Resp B/P (MAP) Pulse Ox O2 Delivery O2 Flow Rate FiO2 08/13/18 08:43 81 126/75 08/13/18 06:00 98.1 15 100 NIPPV (BIPAP/CPAP) I&O- Last 24 Hours up to 6 AM 08/13/18 05:59 Intake Total 90 ml Output Total 100 ml Balance -10 ml Laboratory Data 24H LABS Laboratory Tests 2 08/12/18 17:35: Anion Gap 11, Glomerular Filtration Rate 12.3L, Calcium Level 8.8, Aspartate Amino Transf (AST/SGOT) 14, Alanine Aminotransferase (ALT/SGPT) 19, Alkaline Phosphatase 126H, Total Bilirubin 0.5, Direct Bilirubin 0.2, Total Protein 7.4, Albumin 3.2, Albumin/Globulin Ratio 0.76L, Lipase 1146H 08/12/18 17:36: Immature Granulocyte % (Auto) 0.5, White Blood Count 17.4H, Red Blood Count 4.35, Hemoglobin 12.0, Hematocrit 34.8L, Mean Corpuscular Volume 80.0, Mean Corpuscular Hemoglobin 27.6, Mean Corpuscular Hemoglobin Concent 34.5, Red Cell Distribution Width 16.0H, Platelet Count 277, Neutrophils (%) (Auto) 81.5H, Lymphocytes (%) (Auto) 9.0L, Monocytes (%) (Auto) 7.4H, Eosinophils (%) (Auto) 1 .3, Basophils (%) (Auto) 0.3, Neutrophils # (Auto) 14.2H, Lymphocytes # (Auto) 1.6, Monocytes # (Auto) 1.3H, Eosinophils # (Auto) 0.2, Basophils # (Auto) 0.1, Nucleated Red Blood Cells % (auto) 0.0, Osmolality 299, Lactic Acid Level 0.9 08/12/18 17:43: Prothrombin Time 20.1H, Prothromb Time International Ratio 1.68 08/12/18 22:36: Urine Color YELLOW, Urine Appearance HAZY, Urine pH 5.0, Urine Specific [place] 1.006, Urine Protein NEGATIVE, Urine Glucose (UA) NEGATIVE, Urine Ketones NEGATIVE, Urine Blood NEGATIVE, Urine Nitrite NEGATIVE, Urine Bilirubin N EGATIVE, Urine Urobilinogen 0.2, Urine Leukocyte Esterase 1+H, Urine WBC (Auto) 8H, Urine RBC (Auto) 3, Urine Hyaline Casts (Auto) 0, Urine Bacteria (Auto) 1+H, Urine Squamous Epithelial Cells 12, Urine Mucus (Auto) SMALL, Urine Yeast-Like Cells (Auto) SMALLH, Urine Sperm (Auto) , Urine Random Osmolality 240L, Urine Random Creatinine 69.3, Urine Random Sodium 15 08/13/18 05:20: Nucleated Red Blood Cells % (auto) 0.0, Anion Gap 12, Glomerular Filtration Rate 15.8L, Blood Urea Nitrogen 87H, Creatinine 3.13H, Sodium Level 134L, Potassium Level 5.2H, Chloride Level 105, Carbon Dioxide Level 17L, Calcium Level 8.2L CBC/BMP Laboratory Tests 08/12/18 17:35 08/12/18 17:36 Red Blood Count 4.35, Mean Corpuscular Volume 80.0, Mean Corpuscular Hemoglobin 27.6, Mean Corpuscular Hemoglobin Concent 34.5, Red Cell Distribution Width 16.0 H, Neutrophils (%) (Auto) 81.5 H, Lymphocytes (%) (Auto) 9.0 L, Monocytes (%) (Auto) 7.4 H, Eosinophils (%) (Auto) 1.3, Basophils (%) (Auto) 0.3, Neutrophils # (Auto) 14.2 H, Lymphocytes # (Auto) 1.6, Monocytes # (Auto) 1.3 H, Eosinophils # (Auto) 0.2, Basophils # (Auto) 0.1 08/13/18 05:20 Red Blood Count 3.71 L, Mean Corpuscular Volume 80.6, Mean Corpuscular Hemoglobin 27.2, Mean Corpuscular Hemoglobin Concent 33.8, Red Cell Distribution Width 15.9 H, Calcium Level 8.2 L Microbiology Microbiology 08/13/18 Blood Culture, Received Pending 1/2/19 Blood Culture, Received Pending 08/12/18 Blood Culture, Received Pending 08/12/18 Urine Culture, Received Pending KATHLEEN GRANT PA-C Aug 13, 2018 10:31
[2018-08-13 14:00] VITALS: BP 135/61
[2018-08-13] MEDS: GENTAMICIN SULFATE 0.1% OINT 15 GM TOP SCH (15:14)
[2018-08-13] MEDS: NORCO, ANEXSIA 5/325MG TABLET (HYDROcodone/ACETAMINOPHEN) PO PRN (21:08)
[2018-08-13 22:00] VITALS: BP 145/60
[2018-08-14] MEDS: NORCO, ANEXSIA 5/325MG TABLET (HYDROcodone/ACETAMINOPHEN) PO PRN ×2 (03:01→21:40)
[2018-08-14] MEDS: NS 1,000 ML IV SCH (05:32)
[2018-08-14 06:00] VITALS: BP 132/60
[2018-08-14 06:02] LABS: HEMATOCRIT 26.6 % (36.0-47.0); HEMOGLOBIN 8.7 g/dl (12.0-15.5); MEAN CORPUSCULAR HEMOGLOBIN 26.9 pg (27.0-33.0); MEAN CORPUSCULAR HGB CONC 32.7 g/dl (32.0-36.5); MEAN CORPUSCULAR VOLUME 82.1 fl (80.0-96.0); PLATELET COUNT, AUTOMATED 176 10^3/uL (150-450); RED BLOOD COUNT 3.24 10^6/uL (4.00-5.40); WHITE BLOOD COUNT 8.4 10^3/uL (4.0-10.0)
[2018-08-14 06:26] LABS: CALCIUM LEVEL 8.2 MG/DL (8.8-10.2); CREATININE FOR GFR 2.26 MG/DL (0.55-1.30)
[2018-08-14] MEDS: HumaLOG INSULIN (NovoLOG) PER UNIT SC SCH ×4 (07:30→21:34)
[2018-08-14] MEDS: ADVAIR HFA 230/21MCG INHALER INH SCH ×2 (08:04→21:11)
[2018-08-14] MEDS: METOCLOPRAMIDE 5 MG TAB PO SCH ×2 (08:12→21:33)
[2018-08-14] MEDS: ROSUVASTATIN 10 MG TAB (CRESTOR) PO SCH (08:12)
[2018-08-14] MEDS: APIXABAN 5 MG TAB (ELIQUIS) PO SCH ×2 (08:12→21:34)
[2018-08-14] MEDS: ASPIRIN 81 MG ENTERIC TAB PO SCH (08:12)
[2018-08-14] MEDS: SUCRALFATE 1 GM TAB PO SCH ×2 (08:13→21:33)
[2018-08-14] MEDS: GENTAMICIN SULFATE 0.1% OINT 15 GM TOP SCH (08:13)
[2018-08-14] MEDS: BISOPROLOL FUMARATE 5 MG TAB PO SCH (08:13)
[2018-08-14] MEDS: LEVEMIR (INSULIN DETEMIR) 1 UNITS/0.01ML SC SCH (08:13)
--- NOTE | 2018-08-14 08:47 | ECGEPIP ---
Stationary ECG Study [facility] - ED Test Date: 2018-08-12 Pat Name: ELODIA MALDONADO Department: Room: [place] [address] Gender: F [employer]: KANU : 1950 Requested By: Alena Singh Order Number: [id number] Reading MD: Alena Singh Measurements Intervals [place] Rate: 56 P: 105 ND: 250 QRS: -8 QRSD: 118 T: 61 QT: 446 QTc: 433 Interpretive Statements SINUS BRADYCARDIA WITH FIRST DEGREE AV BLOCK MODERATE INTRAVENTRICULAR CONDUCTION DELAY IVCD DECREASED RATE 07/29/18 Electronically Signed On 08-14-2018 8:47:37 EST by Alena Singh
[2018-08-14 14:00] VITALS: BP 141/67
[2018-08-14] MEDS: GABAPENTIN 300 MG CAP PO SCH (21:33)
[2018-08-14] MEDS: ASCORBIC ACID 500 MG TAB PO SCH (21:33)
[2018-08-14] MEDS: PANTOPRAZOLE 40MG INJ (PROTONIX) (C9113) IV SCH (21:34)
[2018-08-14] MEDS: FERROUS SULFATE 325MG TAB PO SCH (21:34)
[2018-08-14 22:00] VITALS: BP 155/67
[2018-08-15 06:00] VITALS: BP 159/69
[2018-08-15 06:35] LABS: HEMATOCRIT 25.5 % (36.0-47.0); HEMOGLOBIN 8.3 g/dl (12.0-15.5); MEAN CORPUSCULAR HGB CONC 32.5 g/dl (32.0-36.5); MEAN CORPUSCULAR VOLUME 83.1 fl (80.0-96.0); PLATELET COUNT, AUTOMATED 176 10^3/uL (150-450); RED BLOOD COUNT 3.07 10^6/uL (4.00-5.40); WHITE BLOOD COUNT 7.6 10^3/uL (4.0-10.0)
[2018-08-15 07:00] LABS: CALCIUM LEVEL 8.3 MG/DL (8.8-10.2); CREATININE FOR GFR 1.67 MG/DL (0.55-1.30); GLOMERULAR FILTRATION RATE 32.7 (>45); POTASSIUM SERUM 5.1 MEQ/L (3.5-5.1)
[2018-08-15] MEDS: NS 1,000 ML IV SCH ×3 (07:04→20:44)
[2018-08-15] MEDS: HumaLOG INSULIN (NovoLOG) PER UNIT SC SCH ×4 (07:07→20:49)
[2018-08-15] MEDS: APIXABAN 5 MG TAB (ELIQUIS) PO SCH ×2 (08:02→20:44)
[2018-08-15] MEDS: SUCRALFATE 1 GM TAB PO SCH ×2 (08:02→20:44)
[2018-08-15] MEDS: METOCLOPRAMIDE 5 MG TAB PO SCH ×2 (08:02→20:44)
[2018-08-15] MEDS: ROSUVASTATIN 10 MG TAB (CRESTOR) PO SCH (08:02)
[2018-08-15] MEDS: ASPIRIN 81 MG ENTERIC TAB PO SCH (08:02)
[2018-08-15] MEDS: BISOPROLOL FUMARATE 5 MG TAB PO SCH (08:03)
[2018-08-15] MEDS: LEVEMIR (INSULIN DETEMIR) 1 UNITS/0.01ML SC SCH (08:03)
[2018-08-15] MEDS: GENTAMICIN SULFATE 0.1% OINT 15 GM TOP SCH (08:04)
[2018-08-15] MEDS: ADVAIR HFA 230/21MCG INHALER INH SCH ×2 (08:04→21:00)
[2018-08-15] MEDS: NORCO, ANEXSIA 5/325MG TABLET (HYDROcodone/ACETAMINOPHEN) PO PRN (11:26)
[2018-08-15 14:00] VITALS: BP 140/67
--- NOTE | 2018-08-15 16:58 | IPNPDOC ---
Subjective Date Seen The patient was seen on 08/14/18. Subjective Chief Complaint/HPI Patient seen and examined at bedside. Is eating and drinking without nausea/vomiting. Denies any acute complaints at the moment. Constitutional: Denies: Chills, Fever Pulmonary: Denies: Dyspnea Cardiovascular: Denies: Chest Pain Gastrointestinal: Denies: Nausea, Vomiting, Abdominal Pain, Diarrhea, Constipation Genitourinary: Denies: Dysuria Musculoskeletal: Denies: Joint Pain, Muscle Pain Neurological: Denies: Weakness, Confusion Psych: Reports: Mood Normal Objective Physical Examination General Exam: Positive: Alert, Cooperative, No Acute Distress, Other (pleasant adult female resting comfortably in bed) Eye Exam: Positive: Conjunctiva & lids normal; Negative: Sclera icteric ENT Exam: Positive: Atraumatic Neck Exam: Positive: Supple; Negative: JVD Chest Exam: Positive: Clear to auscultation, Normal air movement; Negative: Rales, Rhonchi, Wheezing Heart Exam: Positive: Rate Normal, Regular Rhythm, Normal S1, Normal S2; Negative: Murmurs Abdomen Exam: Positive: Normal bowel sounds, Soft (+ RUQ drain); Negative: Tenderness Extremity Exam: Negative: Edema Skin Exam: Negative: Rash Neuro Exam: Positive: Normal Speech Psych Exam: Positive: Mental status NL, Mood NL, Memory Intact, Oriented x 3 Assessment /Plan Problems (1) LEON (acute kidney injury) Status: Acute Response to Treatment: Stable, Improving Discussed With: Patient Problem Specific Plan: Monitor Clinically, Repeat Labs Problem Text: 08/14/18: Cr trending down and was 2.26 (H) today from 3.13 (H) yesterday. Baseline is ~1. Will continue NS IVF @ 75 cc/hr. Tolerating consistent carbohydrate diet as well as 2 g Na diet. Continue monitoring renal fx. Urine cx specimens appear contaminated. If necessary, consider doing another UA and urine cx. 08/13/18 Scr down from 3.9 to 3.13, baseline 1, cont with IVF will reduce rate from 150 to 75 cc/hr. She is tolerated a Cons Carb diet. Cont to monitor renal function. Renal US neg. Urine culture pending. (2) Dehydration Status: Acute Response to Treatment: Stable, Improving Problem Specific Plan: Monitor Clinically, Repeat Labs Problem Text: See above. (3) Hyponatremia Problem Text: 08/14/18: Na improved from 134 (L) yesterday to WNL to 142 today. Continue to monitor BMP. Na improved from 128 to 134, cont to monitor. (4) DM2 (diabetes mellitus, type 2) Status: Chronic Response to Treatment: Stable Problem Specific Plan: Monitor Clinically Problem Text: 08/14/18: Serum glucose was 110 (H) today and FS have been running from 1teens-160s. Appropriate control. Continue detemir 40 units QAM and humalog ISS coverage at and [facility]. Cont SSI coverage (5) A-fib Status: Chronic Response to Treatment: Stable Problem Specific Plan: Repeat Labs Problem Text: 08/14/18: On physical exam, rhythm was regular and HR was WNL. Continue rhythm control with diltiazem 30 mg BID and anticoagulation with eliquis 5 mg BID. Cont Diltiazem, Eliquis. (6) Hyperkalemia Status: Acute Response to Treatment: Improving Discussed With: Patient Problem Specific Plan: Monitor Clinically, Repeat Labs Problem Text: 08/14/18: K was WNL at 5.0 today. Continue NS IVF and continue to monitor BMP. Improved slightly with IVf from 5.3 to 5.2, cont IVF, monitor. (7) Leukocytosis Status: Resolved Problem Specific Plan: Monitor Clinically, Repeat Labs Problem Text: 08/14/18: WBC trended down to WNL at 8.4 from 16.1 (H) yesterday. Leukocytosis resolved. Improved slightly overnight, from 17.4 to 16.1, monitor closely, suspect primarily related to dehydration. (8) Cholelithiases Status: Acute Response to Treatment: Stable, Improving Discussed With: Patient Problem Specific Plan: Monitor Clinically, Repeat Labs Problem Text: Pt s/p cholecystectomy with drain in place, mgmt per Dr Stack. Plan/VTE VTE Prophylaxis Ordered?: Yes VS, I&O, 24H, Fishbone Vital Signs/I&O Vital Signs Date Time Temp Pulse Resp B/P (MAP) Pulse Ox O2 Delivery O2 Flow Rate FiO2 08/15/18 14:00 97.5 69 18 140/67 (91) 98 Room Air I&O- Last 24 Hours up to 6 AM 08/15/18 06:00 Intake Total 4480 ml Output Total 3535 ml Balance 945 ml Laboratory Data 24H LABS Laboratory Tests 2 08/14/18 20:25: Bedside Glucose (Misc Panel) 119H 08/15/18 06:07: Nucleated Red Blood Cells % (auto) 0.0, Anion Gap 8, Glomerular Filtration Rate 32.7L, Blood Urea Nitrogen 48H, Creatinine 1.67H, Sodium Level 146H, Potassium Level 5.1, Chloride Level 121H, Carbon Dioxide Level 17L, Calcium Level 8.3L 08/15/18 11:50: Bedside Glucose (Misc Panel) 208H 08/15/18 16:31: Bedside Glucose (Misc Panel) 130H CBC/BMP Laboratory Tests 08/15/18 06:07 Red Blood Count 3.07 L, Mean Corpuscular Volume 83.1, Mean Corpuscular Hemoglobin 27.0, Mean Corpuscular Hemoglobin Concent 32.5, Red Cell Distribution Width 16.6 H, Calcium Level 8.3 L Microbiology Microbiology 08/13/18 Blood Culture - Preliminary, Resulted No Growth after 48 hours. All Specime... 08/12/18 Blood Culture - Preliminary, Resulted No Growth after 48 hours. All Specime... 08/12/18 Blood Culture - Preliminary, Resulted No Growth after 48 hours. All Specime... 08/12/18 Urine Culture - Final, Complete GME ATTESTATION GME ATTESTATION My faculty preceptor for this patient encounter was Dr. Oksana Jimenez, and was physically present during the encounter and was fully available. All as pects of the patient interview, examination, medical decision making process, and medical care plan development were reviewed and approved by the faculty preceptor. The faculty preceptor is aware and concurs with the plan as stated in the body of this note and will attest to such by his/her cosignature. LEEANNA WILLIAMSON DO Aug 15, 2018 16:58
[2018-08-15] MEDS ORDERED: MAALOX 30 ML SUSP *UDC PO PRN (17:00)
--- NOTE | 2018-08-15 17:11 | IPNPDOC ---
Subjective Date Seen The patient was seen on 08/15/18. Subjective Chief Complaint/HPI Patient seen and examined at bedside. Admits to some heartburn today after eating. States that food sometimes does not taste that good to her--whether it is hospital food or food at home. Is able to tolerate her diet without nausea/vomiting. Admits to 12/18 R sided abdominal pain at her incisional site and R great toe ulcer pain. Just recently received a norco as per nursing staff. General: Reports: Normal Appetite (decreased but so far tolerating her diet) Constitutional: Denies: Chills, Fever ENT: Denies: Head Aches Skin: Denies: Rash Pulmonary: Denies: Dyspnea, Cough Cardiovascular: Denies: Chest Pain Gastrointestinal: Reports: Abdominal Pain (R-sided pain at incisional site); Denies: Nausea, Vomiting, Diarrhea, Constipation Genitourinary: Denies: Dysuria Hematologic: Denies: Bleeding Excessively Musculoskeletal: Denies: Joint Pain, Muscle Pain Neurological: Denies: Weakness, Confusion Psych: Reports: Mood Normal Objective Physical Examination General Exam: Positive: Alert, Cooperative, No Acute Distress, Other (pleasant adult female resting comfortably in bed) Eye Exam: Positive: Conjunctiva & lids normal; Negative: Sclera icteric ENT Exam: Positive: Atraumatic Neck Exam: Positive: Supple; Negative: JVD Chest Exam: Positive: Clear to auscultation, Normal air movement; Negative: Rales, Rhonchi, Wheezing Heart Exam: Positive: Rate Normal, Regular Rhythm, Normal S1, Normal S2; Negative: Murmurs Telemetry: Positive: Sinus, Other Telemetry: (SR with 1st degree AV block. ) Abdomen Exam: Positive: Normal bowel sounds, Soft (+ RUQ drain, unstained bandage in R abdomen. ); Negative: Tenderness Extremity Exam: Negative: Edema Skin Exam: Negative: Rash Neuro Exam: Positive: Normal Speech Psych Exam: Positive: Mental status NL, Mood NL, Memory Intact, Oriented x 3 Assessment /Plan Problems (1) LEON (acute kidney injury) Status: Acute Response to Treatment: Stable, Improving Discussed With: Patient Problem Specific Plan: Monitor Clinically, Repeat Labs Problem Text: 08/15/18: Cr trending down and was 1.67 (H) from 2.26 (H) yesterday. Baseline is again ~1. Still continuing NS IVF @ 75 cc/hr. Tolerating her diet. Continue to monitor renal fx. 08/14/18: Cr trending down and was 2.26 (H) today from 3.13 (H) yesterday. Baseline is ~1. Will continue NS IVF @ 75 cc/hr. Tolerating consistent ca rbohydrate diet as well as 2 g Na diet. Continue monitoring renal fx. Urine cx specimens appear contaminated. If necessary, consider doing another UA and urine cx. 08/13/18 Scr down from 3.9 to 3.13, baseline 1, cont with IVF will reduce rate from 150 to 75 cc/hr. She is tolerated a Cons Carb diet. Cont to monitor renal function. Renal US neg. Urine culture pending. (2) Dehydration Status: Acute Response to Treatment: Stable, Improving Problem Specific Plan: Monitor Clinically, Repeat Labs Problem Text: See above. (3) Hyponatremia Status: Resolved Problem Text: 08/15/18: Na a little elevated at 146 (H) today but close to upper limits of normal. Will continue NS IVF and have encouraged PO hydration. Continue to monitor BMP. 08/14/18: Na improved from 134 (L) yesterday to WNL to 142 today. Continue to monitor BMP. Na improved from 128 to 134, cont to monitor. (4) DM2 (diabetes mellitus, type 2) Status: Chronic Response to Treatment: Stable Problem Specific Plan: Monitor Clinically Problem Text: 08/15/18: Serum glucose was WNL at 100 toady and FS have been ranging from 130s-low 200s. This is acceptable for now. Continue detemir 40 units QAM and humalog ISS at and [facility]. Consider adjusting basal insulin dose if patient's FS run higher. 08/14/18: Serum glucose was 110 (H) today and FS have been running from 1teens- 160s. Appropriate control. Continue detemir 40 units QAM and humalog ISS c overage at and [facility]. Cont SSI coverage (5) A-fib Status: Chronic Response to Treatment: Stable Problem Specific Plan: Repeat Labs Problem Text: 08/15/18: On telemetry, patient is still in sinus rhythm with 1st degree heart block. Was bradycardic on 08/13/18 in the 50s. Otherwise, her rate is controlled and she will continue on diltiazem and eliquis. Continue to monitor on secured entrance monitor. 08/14/18: On physical exam, rhythm was regular and HR was WNL. Continue rhythm control with diltiazem 30 mg BID and anticoagulation with eliquis 5 mg BID. Cont Diltiazem, Eliquis. (6) Hyperkalemia Status: Resolved Response to Treatment: Improving Discussed With: Patient Problem Specific Plan: Monitor Clinically, Repeat Labs Problem Text: 08/15/18: K was WNL at 5.1 today. Continue NS IVF, encouraged oral hydration, and continue to monitor BMP. 08/14/18: K was WNL at 5.0 today. Continue NS IVF and continue to monitor BMP. Improved slightly with IVf from 5.3 to 5.2, cont IVF, monitor. (7) Leukocytosis Status: Resolved Response to Treatment: Stable Problem Specific Plan: Monitor Clinically, Repeat Labs Problem Text: 08/15/18: WBC still WNL at 7.6 today from 8.4 (N) yesterday. Continue to monitor CBC. Although, leukocytosis has seemed to resolve. 08/14/18: WBC trended down to WNL at 8.4 from 16.1 (H) yesterday. Leukocytosis resolved. Improved slightly overnight, from 17.4 to 16.1, monitor closely, suspect primarily related to dehydration. (8) Cholelithiases Status: Acute Response to Treatment: Stable, Improving Discussed With: Patient Problem Specific Plan: Monitor Clinically, Repeat Labs Problem Text: Pt s/p cholecystectomy with drain in place, mgmt per Dr Stack. Plan/VTE VTE Prophylaxis Ordered?: Yes VS, I&O, 24H, [facility] Vital Signs/I&O Vital Signs Date Time Temp Pulse Resp B/P (MAP) Pulse Ox O2 Delivery O2 Flow Rate FiO2 08/15/18 14:00 97.5 69 18 140/67 (91) 98 Room Air I&O- Last 24 Hours up to 6 AM 08/15/18 06:00 Intake Total 4480 ml Output Total 3535 ml Balance 945 ml Laboratory Data 24H LABS Laboratory Tests 2 08/14/18 20:25: Bedside Glucose (Misc Panel) 119H 08/15/18 06:07: Nucleated Red Blood Cells % (auto) 0.0, Anion Gap 8, Glomerular Filtration Rate 32.7L, Blood Urea Nitrogen 48H, Creatinine 1.67H, Sodium Level 146H, Potassium Level 5.1, Chloride Level 121H, Carbon Dioxide Level 17L, Calcium Level 8.3L 08/15/18 11:50: Bedside Glucose (Misc Panel) 208H 08/15/18 16:31: Bedside Glucose (Misc Panel) 130H CBC/BMP Laboratory Tests 08/15/18 06:07 Red Blood Count 3.07 L, Mean Corpuscular Volume 83.1, Mean Corpuscular Hemoglobin 27.0, Mean Corpuscular Hemoglobin Concent 32.5, Red Cell Distribution Width 16.6 H, Calcium Level 8.3 L Microbiology Microbiology 08/13/18 Blood Culture - Preliminary, Resulted No Growth after 48 hours. All Specime... 08/12/18 Blood Culture - Preliminary, Resulted No Growth after 48 hours. All Specime... 08/12/18 Blood Culture - Preliminary, Resulted No Growth after 48 hours. All Specime... 08/12/18 Urine Culture - Final, Complete GME ATTESTATION GME ATTESTATION My faculty preceptor for this patient encounter was Dr. Meliton Collier, and was physically present during the encounter and was fully available. All aspects of the patient interview, examination, medical decision making process, and medical care plan development were reviewed and approved by the faculty preceptor. The faculty preceptor is aware and concurs with the plan as stated in the body of this note and will attest to such by his/her cosignature. ATTENDING NOTE The patient was seen and examined. The chart was reviewed, and the cse was reviewed with the PGY-3. LEEANNA WILLIAMSON DO Aug 15, 2018 17:11 Meliton Collier M.D. Aug 18, 2018 11:40
[2018-08-15] MEDS: FERROUS SULFATE 325MG TAB PO SCH (20:44)
[2018-08-15] MEDS: GABAPENTIN 300 MG CAP PO SCH (20:45)
[2018-08-15] MEDS: ASCORBIC ACID 500 MG TAB PO SCH (20:45)
[2018-08-15] MEDS: PANTOPRAZOLE 40MG INJ (PROTONIX) (C9113) IV SCH (20:49)
[2018-08-15 22:00] VITALS: BP 136/65
[2018-08-16 06:00] VITALS: BP 136/56
[2018-08-16 06:17] LABS: HEMATOCRIT 25.3 % (36.0-47.0); HEMOGLOBIN 8.1 g/dl (12.0-15.5); MEAN CORPUSCULAR HEMOGLOBIN 27.3 pg (27.0-33.0); MEAN CORPUSCULAR VOLUME 85.2 fl (80.0-96.0); PLATELET COUNT, AUTOMATED 167 10^3/uL (150-450); RED BLOOD COUNT 2.97 10^6/uL (4.00-5.40)
[2018-08-16 06:35] LABS: CALCIUM LEVEL 8.1 MG/DL (8.8-10.2); CREATININE FOR GFR 1.35 MG/DL (0.55-1.30); GLOMERULAR FILTRATION RATE 41.8 (>45)
[2018-08-16] MEDS: HumaLOG INSULIN (NovoLOG) PER UNIT SC SCH ×4 (07:22→20:52)
[2018-08-16] MEDS: APIXABAN 5 MG TAB (ELIQUIS) PO SCH ×2 (08:32→20:41)
[2018-08-16] MEDS: ROSUVASTATIN 10 MG TAB (CRESTOR) PO SCH (08:32)
[2018-08-16] MEDS: METOCLOPRAMIDE 5 MG TAB PO SCH ×2 (08:32→20:41)
[2018-08-16] MEDS: ASPIRIN 81 MG ENTERIC TAB PO SCH (08:33)
[2018-08-16] MEDS: SUCRALFATE 1 GM TAB PO SCH ×2 (08:33→20:41)
[2018-08-16] MEDS: BISOPROLOL FUMARATE 5 MG TAB PO SCH (08:33)
[2018-08-16] MEDS: GENTAMICIN SULFATE 0.1% OINT 15 GM TOP SCH (08:34)
[2018-08-16] MEDS: LEVEMIR (INSULIN DETEMIR) 1 UNITS/0.01ML SC SCH (08:34)
[2018-08-16] MEDS: ADVAIR HFA 230/21MCG INHALER INH SCH ×2 (08:51→20:23)
[2018-08-16 14:00] VITALS: BP 147/65
[2018-08-16] MEDS: NS 1,000 ML IV SCH ×2 (18:49→22:10)
[2018-08-16] MEDS: FERROUS SULFATE 325MG TAB PO SCH (20:41)
[2018-08-16] MEDS: ASCORBIC ACID 500 MG TAB PO SCH (20:41)
[2018-08-16] MEDS: PANTOPRAZOLE 40MG INJ (PROTONIX) (C9113) IV SCH (20:41)
[2018-08-16] MEDS: GABAPENTIN 300 MG CAP PO SCH (20:41)
[2018-08-16] MEDS: RHOPRESSA 0.02% OU SCH (21:23)
[2018-08-16 22:00] VITALS: BP 160/68
[2018-08-17 06:00] VITALS: BP 150/67
[2018-08-17 06:32] LABS: HEMATOCRIT 24.9 % (36.0-47.0); HEMOGLOBIN 7.9 g/dl (12.0-15.5); MEAN CORPUSCULAR HEMOGLOBIN 27.5 pg (27.0-33.0); MEAN CORPUSCULAR HGB CONC 31.7 g/dl (32.0-36.5); MEAN CORPUSCULAR VOLUME 86.8 fl (80.0-96.0); PLATELET COUNT, AUTOMATED 156 10^3/uL (150-450); RED BLOOD COUNT 2.87 10^6/uL (4.00-5.40); WHITE BLOOD COUNT 7.5 10^3/uL (4.0-10.0)
[2018-08-17 06:51] LABS: CALCIUM LEVEL 8.3 MG/DL (8.8-10.2); CREATININE FOR GFR 1.15 MG/DL (0.55-1.30); GLOMERULAR FILTRATION RATE 50.3 (>45); POTASSIUM SERUM 4.8 MEQ/L (3.5-5.1)
[2018-08-17] MEDS: HumaLOG INSULIN (NovoLOG) PER UNIT SC SCH ×4 (07:30→20:40)
--- NOTE | 2018-08-17 07:45 | IPN ---
DATE OF SERVICE: 08/16/2018 The patient is seen today on [facility]. She says she is doing well. She says she is drinking well. Not having any headache or dizziness. Really not having any belly pain. Her cholecystostomy tube is draining well. Her surgeon is out of the area for another 2 weeks. She is ambulating well. She is still getting IVs. Appetite is improving. CURRENT MEDICATIONS: - She is a drop called Rhopressa that she uses in both her eyes as well as Simbrinza. - She is on aspirin. - Zebeta - Crestor - Levemir - Humalog - as needed meds for hypoglycemia - pantoprazole - Eliquis - vitamin C - Cardizem - iron - Neurontin - metoclopramide - fluticasone with salmeterol inhalation - Carafate - Humalog insulin coverage - She has as needed hydrocodone available. The last time she appeared to receive this was 24 hours ago. - She has as needed meds for wheezing, nasal congestion, nausea. On examination, blood pressure is 136/56, pulse 71 and regular, respirations 22, O2 saturation 96% on room air. Temperature is 97.8. She is alert, pleasant, cooperative, not at all in any distress. Eyes are clear. Mucous membranes are somewhat pale. No neck masses, tenderness or adenopathy. No carotid bruits. Lungs are clear. Heart is regular rhythm without any murmur, click or gallop. Abdomen is soft, protuberant, nontender without any masses or organomegaly. She has healing cholecystectomy incision and she has T-tube draining bile without any issues. Labs today show hemoglobin of 8.1. Her white count had been 12 on admission but she felt that she was significantly volume contracted at that time. White count is 8000. She came in with a white count of 17,000. Glucose this morning was 89, BUN was 33, creatinine 1.5 continuing to improve. Sodium 146, potassium 5.0. ASSESSMENT: Acute kidney injury continuing to improve. Diabetes mellitus controlled. Atrial fibrillation chronic, rate controlled on anticoagulation. Electrolytes seem to be good at this time. Leukocytosis resolved. Anemia. Hemoglobin is down in the 8s although I believe a lot of this is dilutional. Status post cholecystectomy for gangrenous cholecystitis. It is felt that there is a residual common bile duct stone. PLAN: Continue on IV fluids. Continue on oral feedings and fluids. The patient was to have a T-tube cholangiogram around this time. Given her improved status, will get this scheduled for while she is here in the facility. She will have to sink or swim at some point with maintaining fluid intake without any IV fluids. If there is presence of common bile duct stone yet, she will need a procedure to remove that. We will leave that up to surgery and gastroenterology. DUYEN
[2018-08-17] MEDS: ROSUVASTATIN 10 MG TAB (CRESTOR) PO SCH (08:22)
[2018-08-17] MEDS: SUCRALFATE 1 GM TAB PO SCH ×2 (08:22→20:35)
[2018-08-17] MEDS: BISOPROLOL FUMARATE 5 MG TAB PO SCH (08:22)
[2018-08-17] MEDS: ASPIRIN 81 MG ENTERIC TAB PO SCH (08:23)
[2018-08-17] MEDS: LEVEMIR (INSULIN DETEMIR) 1 UNITS/0.01ML SC SCH (08:23)
[2018-08-17] MEDS: METOCLOPRAMIDE 5 MG TAB PO SCH ×2 (08:23→20:36)
[2018-08-17] MEDS: APIXABAN 5 MG TAB (ELIQUIS) PO SCH ×2 (08:23→20:35)
[2018-08-17] MEDS: GENTAMICIN SULFATE 0.1% OINT 15 GM TOP SCH (08:24)
[2018-08-17] MEDS: ADVAIR HFA 230/21MCG INHALER INH SCH ×2 (08:42→20:33)
--- NOTE | 2018-08-17 08:42 | IPNPDOC ---
Subjective Date Seen The patient was seen on 08/17/18. Subjective Chief Complaint/HPI LEON Events since last encounter Tolerating po well. C/o hands and feet feeling puffy. Has been receiving IVF for 5 days. Diuretics currently on hold. Constitutional: Denies: Chills, Fever, Night Sweats Pulmonary: Denies: Dyspnea, Cough Cardiovascular: Denies: Chest Pain, Palpitations, Orthopnea, Paroxysmal Noc. Dyspnea, Lt Headedness Gastrointestinal: Denies: Nausea, Vomiting, Abdominal Pain, Diarrhea, Constipation Genitourinary: Denies: Dysuria, Frequency, Incontinence, Retention Hematologic: Denies: Bruising, Bleeding Excessively Objective Physical Examination General Exam: Positive: Alert, Cooperative, No Acute Distress, Other (pleasant adult female resting comfortably in bed) Eye Exam: Positive: Conjunctiva & lids normal; Negative: Sclera icteric ENT Exam: Positive: Atraumatic Neck Exam: Positive: Supple; Negative: JVD Chest Exam: Positive: Clear to auscultation, Normal air movement; Negative: Rales, Rhonchi, Wheezing Heart Exam: Positive: Rate Normal, Regular Rhythm, Normal S1, Normal S2; Negative: Murmurs Telemetry: Positive: Sinus, Other Telemetry: (SR with 1st degree AV block. ) Abdomen Exam: Positive: Normal bowel sounds, Soft (+ RUQ drain, unstained bandage in R abdomen. T-tube draining orange clear, fluid); Negative: Tenderness Extremity Exam: Negative: Edema Skin Exam: Negative: Rash Neuro Exam: Positive: Normal Speech Psych Exam: Positive: Mental status NL, Mood NL, Memory Intact, Oriented x 3 Assessment /Plan Problems (1) Diastolic congestive heart failure Status: Chronic Problem Text: Euvolemic off HD regimen irbe 75, clay 25, torse 30/20 (2) Choledocholithiasis with acute cholecystitis with obstruction Status: Resolved Problem Text: 08/17/[address] Stack 07/31/18 sp Open cholecystectomy with intraoperative cholangiogram, common bile duct exploration with removal of stone, and placement of [id number] 2 Gangrenous cholecystitis and obstructing choledocholithiasis with cholangitis. (3) LEON (acute kidney injury) Status: Acute Response to Treatment: Stable, Improving Discussed With: Patient Problem Specific Plan: Monitor Clinically, Repeat Labs Problem Text: acute LEON III 2 dehydration 08/17 back to baseline cr 1.2 (1 cr 3.9 c hyperK, metabolic acidosis), IVF held- +5L since admit baseline cr 1.0-1.1 (4) DM2 (diabetes mellitus, type 2) Status: Chronic Response to Treatment: Stable Problem Specific Plan: Monitor Clinically Problem Text: HD prior to wt loss c acute raj glar 100/95! 08/17/17 FBG 82 at 500; therefore, decreased det 40 q800 to 32 (to start 08/18) c AC/QHS SS lis (5) A-fib Status: Chronic Response to Treatment: Stable Problem Specific Plan: Repeat Labs Problem Text: Controlled on HD dilt 30 mg BID, biso 5 QD and anticoagulation with eliquis 5 mg BID. (6) Hyperkalemia Status: Resolved Response to Treatment: Improving Discussed With: Patient Problem Specific Plan: Monitor Clinically, Repeat Labs Problem Text: as per LEON (7) Anemia Problem Text: favor 2 LEON/chronic disease 08/17 stable at 8.5, 86 baseline hgb 11s Plan/VTE VTE Prophylaxis Ordered?: Yes VS, I&O, 24H, Fishbone Vital Signs/I&O Vital Signs Date Time Temp Pulse Resp B/P (MAP) Pulse Ox O2 Delivery O2 Flow Rate FiO2 08/17/18 08:22 94 153/56 08/17/18 06:00 97.4 16 96 Room Air I&O- Last 24 Hours up to 6 AM 08/17/18 06:00 Intake Total 3870 ml Output Total 2650 ml Balance 1220 ml Laboratory Data 24H LABS Laboratory Tests 2 08/16/18 11:45: Bedside Glucose (Misc Panel) 153H 08/16/18 16:56: Bedside Glucose (Misc Panel) 115 08/16/18 20:10: Bedside Glucose (Misc Panel) 136H 08/17/18 05:06: Bedside Glucose (Misc Panel) 82 08/17/18 05:52: Nucleated Red Blood Cells % (auto) 0.0, Anion Gap 7L, Glomerular Filtration Rate 50.3, Blood Urea Nitrogen 24H, Creatinine 1.15, Sodium Level 146H, Potassium Level 4.8, Chloride Level 122H, Carbon Dioxide Level 17L, Calcium Level 8.3L 08/17/18 08:16: Bedside Glucose (Misc Panel) 124H CBC/BMP Laboratory Tests 08/17/18 05:52 Red Blood Count 2.87 L, Mean Corpuscular Volume 86.8, Mean Corpuscular Hemoglobin 27.5, Mean Corpuscular Hemoglobin Concent 31.7 L, Red Cell Distribution Width 16.9 H, Calcium Level 8.3 L Microbiology Microbiology 08/13/18 Blood Culture - Preliminary, Resulted No Growth after 72 hours. All specime... 08/12/18 Blood Culture - Preliminary, Resulted No Growth after 72 hours. All specime... 08/12/18 Blood Culture - Preliminary, Resulted No Growth after 72 hours. All specime... 08/12/18 Urine Culture - Final, Complete Dana Thapa Aug 17, 2018 08:42 Nabil Lennon M.D. Aug 17, 2018 17:26
[2018-08-17] MEDS: EYE OU SCH ×3 (09:00→20:37)
[2018-08-17] MEDS: SIMBRINZA OU SCH ×3 (09:00→20:37)
[2018-08-17 14:00] VITALS: BP 132/54
[2018-08-17 14:35] LABS: BASO % 0.2 % (0.0-1.0); EOS # 0.1 10^3/uL (0.0-0.50); EOS % 1.5 % (0.0-3.0); HEMOGLOBIN 8.5 g/dl (12.0-15.5); LYMPH # 0.8 10^3/uL (1.5-4.5); LYMPH % 10.1 % (24.0-44.0); MEAN CORPUSCULAR HGB CONC 31.5 g/dl (32.0-36.5); MEAN CORPUSCULAR VOLUME 85.7 fl (80.0-96.0); MONO # 0.6 10^3/uL (0.0-0.8); MONO % 6.8 % (0.0-5.0); NEUTROPHILS # 6.6 10^3/uL (1.8-7.7); NEUTROPHILS % 81.2 % (36.0-66.0); PLATELET COUNT, AUTOMATED 170 10^3/uL (150-450); RED BLOOD COUNT 3.15 10^6/uL (4.00-5.40); WHITE BLOOD COUNT 8.2 10^3/uL (4.0-10.0)
[2018-08-17] MEDS ORDERED: CONRAY-43 43% 50ML VIAL (Q9960) As Ordered ONE (15:00)
[2018-08-17] MEDS ORDERED: ISOVUE-300 61% 50ML VIAL (Q9967) As Ordered ONE (15:01)
[2018-08-17] MEDS: PANTOPRAZOLE 40MG TAB (PROTONIX) PO SCH (18:31)
--- NOTE | 2018-08-17 19:23 | REP ---
T TUBE CHOLANGIOGRAM The procedure was performed under the personal supervision of Dr. Hirsch. 20 ml of Isovue 300 was injected into the existing T tube drainage catheter. Images demonstrate filling of the biliary tree and cystic duct. There is free flow of contrast into the duodenum. There is no evidence of gallstone stricture or obstruction. Impression: There is no evidence of gallstone, stricture or obstruction. 0.3 minutes of fluoroscopy time was utilized for this procedure. Reviewed by KELLEY Calderon 08/17/2018 03:44 P Electronically Signed by Ilia Hirsch MD 08/17/2018 07:15 P
[2018-08-17] MEDS: GABAPENTIN 300 MG CAP PO SCH (20:36)
[2018-08-17] MEDS: RHOPRESSA 0.02% OU SCH (20:36)
[2018-08-17] MEDS: FERROUS SULFATE 325MG TAB PO SCH (20:36)
[2018-08-17] MEDS: NORCO, ANEXSIA 5/325MG TABLET (HYDROcodone/ACETAMINOPHEN) PO PRN (20:36)
[2018-08-17 22:00] VITALS: BP 150/64
[2018-08-18 06:00] VITALS: BP 135/64
[2018-08-18 06:03] LABS: HEMATOCRIT 25.5 % (36.0-47.0); HEMOGLOBIN 8.1 g/dl (12.0-15.5); MEAN CORPUSCULAR HEMOGLOBIN 27.4 pg (27.0-33.0); MEAN CORPUSCULAR HGB CONC 31.8 g/dl (32.0-36.5); MEAN CORPUSCULAR VOLUME 86.1 fl (80.0-96.0); PLATELET COUNT, AUTOMATED 155 10^3/uL (150-450); RED BLOOD COUNT 2.96 10^6/uL (4.00-5.40); WHITE BLOOD COUNT 8.3 10^3/uL (4.0-10.0)
[2018-08-18] MEDS: HumaLOG INSULIN (NovoLOG) PER UNIT SC SCH (07:30)
[2018-08-18 07:42] LABS: BLOOD UREA NITROGEN 18 MG/DL (7-18); CALCIUM LEVEL 8.2 MG/DL (8.8-10.2); CARBON DIOXIDE LEVEL 14 MEQ/L (21-32); CHLORIDE LEVEL 121 MEQ/L (98-107); CREATININE FOR GFR 0.98 MG/DL (0.55-1.30); FERRITIN 143 NG/ML (8-252); GLOMERULAR FILTRATION RATE > 60.0 (>45); GLUCOSE, FASTING 79 MG/DL (70-100); IRON (FE) 34 UG/DL (50-170); PERCENT SATURATION 12.4 % (13.2-45.0); POTASSIUM SERUM 4.8 MEQ/L (3.5-5.1); SODIUM LEVEL 146 MEQ/L (136-145); TOTAL IRON BINDING CAPACITY 275 UG/DL (250-450)
[2018-08-18] MEDS: ADVAIR HFA 230/21MCG INHALER INH SCH (08:16)
[2018-08-18] MEDS: ASPIRIN 81 MG ENTERIC TAB PO SCH (08:46)
[2018-08-18] MEDS: BISOPROLOL FUMARATE 5 MG TAB PO SCH (08:46)
[2018-08-18] MEDS: ROSUVASTATIN 10 MG TAB (CRESTOR) PO SCH (08:46)
[2018-08-18] MEDS: SUCRALFATE 1 GM TAB PO SCH (08:47)
[2018-08-18] MEDS: METOCLOPRAMIDE 5 MG TAB PO SCH (08:47)
[2018-08-18] MEDS: PANTOPRAZOLE 40MG TAB (PROTONIX) PO SCH (08:47)
[2018-08-18] MEDS: APIXABAN 5 MG TAB (ELIQUIS) PO SCH (08:47)
[2018-08-18] MEDS: EYE OU SCH (08:48)
[2018-08-18] MEDS: SIMBRINZA OU SCH (08:48)
[2018-08-18] MEDS: GENTAMICIN SULFATE 0.1% OINT 15 GM TOP SCH (08:48)
[2018-08-18 09:00] VITALS: BP 144/61
[2018-08-18] MEDS ORDERED: LEVEMIR (INSULIN DETEMIR) 1 UNITS/0.01ML SC SCH (09:00)
[2018-08-18 09:39] LABS: VITAMIN B12 LEVEL 449 PG/ML (247-911)
--- NOTE | 2018-08-18 10:01 | DSES ---
DATE OF ADMISSION: 08/12/2018 DATE OF DISCHARGE: 08/18/2018 PRIMARY CARE PROVIDER: Nabil Lennon MD ATTENDING PHYSICIAN: Nabil Lennon MD HISTORY: This is a 67-year-old female patient who presented to [facility] after completing blood work at Dr. Stack's office and being advised to present. She had had one drain and sandra removed. Her laboratory work revealed an elevated BUN and creatinine. Since her discharge from the hospital, status post cholecystectomy, she was feeling well but had a poor appetite and not been drinking or eating. She denied any other symptoms associated with this but did acknowledge that her urine was appearing to be quite dark. She was admitted to the hospital with acute kidney injury, likely secondary to dehydration, started on intravenous (IV) fluids. Any nephrotoxic medications were held. Renal ultrasound was performed and negative. She did have leukocytosis, although it was felt to be secondary to dehydration reaction. She had an elevated lipase, although was without any abdominal pain. Hyponatremia, hyperkalemia felt secondary to diuretics and dehydration. These were held. During her hospitalization, she has remained medically stable. Her fluid status has improved. She is eating and drinking better. Her renal function has improved. Her home-dosed medications have been resumed. She is safe for physical therapy. She is eager to return home. Her discharge diagnoses include acute kidney injury secondary to dehydration, chronic congestive heart failure, cholelithiasis with acute cholecystitis with obstruction status post cholecystectomy on 07/31/2018, diabetes mellitus type 2, atrial fibrillation, hyperkalemia, hyponatremia, anemia of chronic disease with iron deficiency. DISCHARGE MEDICATIONS: Include: - acetaminophen/hydrocodone 5/325 one tablet every 4 hours as needed for pain - ProAir 100 mcg two puffs inhaled daily as needed for shortness of breath or cough - Imodium lactate twice daily as needed for dry skin - Eliquis 5 mg twice daily - vitamin C 500 mg by mouth nightly - aspirin 81 mg by mouth every morning - bisoprolol 5 mg every morning - calcium with D 600/400 one tablet daily - Dexilant 60 mg by mouth nightly - diltiazem 30 mg by mouth twice a day - ferrous sulfate 325 mg by mouth nightly - gabapentin 300 mg by mouth nightly - gentamicin topically daily - NovoLog FlexPen sliding scale - Lantus SoloStar 100 units in the morning, 95 units in the evening - irbesartan 75 mg daily - metoclopramide (Reglan) 5 mg by mouth twice a day - Nasonex one spray intranasally daily as needed for nasal congestion - Zofran 4 mg every 6 hours as needed for nausea or vomiting - potassium chloride 10 mEq daily - ranitidine 300 mg by mouth before meals - Rhopressa one drop each eye before bed - Crestor 20 mg by mouth every morning - Advair Diskus 500/50 one puff twice a day - Simbrinza 1/0.2 one drop each eye twice daily - spironolactone 25 mg by mouth nightly - Carafate 1 gram by mouth twice a day - torsemide 30 mg by mouth every morning, 20 mg by mouth nightly - vitamin D 50,000 units one tablet weekly DISCHARGE PLAN: Will be to followup with Dr. Lennon in [address] Stack per his office. Her activity should be as tolerated. Her diet should be consistent-carbohydrate, [id number]. edited: 08/20/2018 0837 seymour GELLER
== END 2018-08-18 11:21 | disposition home or self-care (01) | DRG 683 ==
LOC: M ED 16:38 → M ED INP 21:02 → M MSPAV 23:33
PROVIDERS: ADMIT Internal Medicine; ATTEND Family Medicine
DX: N17.9 Acute kidney failure, unspecified (principal); E87.2 Acidosis; E87.1 Hypo-osmolality and hyponatremia; I50.32 Chronic diastolic (congestive) heart failure; E86.0 Dehydration; I48.2 Chronic atrial fibrillation; I11.0 Hypertensive heart disease with heart failure; E87.5 Hyperkalemia; E11.319 Type 2 diabetes mellitus with unspecified diabetic retinopathy without macular edema; E78.5 Hyperlipidemia, unspecified; J44.9 Chronic obstructive pulmonary disease, unspecified; G47.33 Obstructive sleep apnea (adult) (pediatric); E11.40 Type 2 diabetes mellitus with diabetic neuropathy, unspecified; K26.9 Duodenal ulcer, unspecified as acute or chronic, without hemorrhage or perforation; Z98.84 Bariatric surgery status; Z90.13 Acquired absence of bilateral breasts and nipples; Z85.3 Personal history of malignant neoplasm of breast; Z90.49 Acquired absence of other specified parts of digestive tract; Z87.891 Personal history of nicotine dependence; Z79.01 Long term (current) use of anticoagulants; Z79.4 Long term (current) use of insulin; Z79.899 Other long term (current) drug therapy; Z88.1 Allergy status to other antibiotic agents; Z88.2 Allergy status to sulfonamides; Z88.8 Allergy status to other drugs, medicaments and biological substances; Z98.890 Other specified postprocedural states

== ENCOUNTER → 2018-08-28 | Outpatient (CLI) | payer OTHER ==
[~2018-08-28] MED LIST changes: +METR-201 PO; +NORC1TAB4 PO; +ONDA4TAB5 PO
[2018-08-28 18:20] LABS: BASO % 0.4 % (0.0-1.0); EOS # 0.4 10^3/uL (0.0-0.50); EOS % 4.9 % (0.0-3.0); HEMATOCRIT 32.9 % (36.0-47.0); HEMOGLOBIN 10.5 g/dl (12.0-15.5); LYMPH # 1.2 10^3/uL (1.5-4.5); LYMPH % 16.6 % (24.0-44.0); MEAN CORPUSCULAR HEMOGLOBIN 27.1 pg (27.0-33.0); MEAN CORPUSCULAR HGB CONC 31.9 g/dl (32.0-36.5); MONO # 0.7 10^3/uL (0.0-0.8); MONO % 9.9 % (0.0-5.0); NEUTROPHILS # 4.8 10^3/uL (1.8-7.7); NEUTROPHILS % 67.6 % (36.0-66.0); PLATELET COUNT, AUTOMATED 233 10^3/uL (150-450); RED BLOOD COUNT 3.87 10^6/uL (4.00-5.40); WHITE BLOOD COUNT 7.1 10^3/uL (4.0-10.0)
[2018-08-28 18:54] LABS: ALBUMIN 3.3 GM/DL (3.2-5.2); BILIRUBIN,TOTAL 0.5 MG/DL (0.2-1.0); CALCIUM LEVEL 8.7 MG/DL (8.8-10.2); CREATININE FOR GFR 1.15 MG/DL (0.55-1.30); FREE T4 1.3 NG/DL (0.76-1.46); GLOMERULAR FILTRATION RATE 50.3 (>45); MAGNESIUM LEVEL 1.9 MG/DL (1.8-2.4); POTASSIUM SERUM 4.3 MEQ/L (3.5-5.1); THYROID STIMULATING HORMONE 0.578 uIU/ML (0.358-3.740); TOTAL PROTEIN 7.1 GM/DL (6.4-8.2)
== END ==
LOC: M LAB 17:44
PROVIDERS: ATTEND Family Medicine
DX: I11.0 Hypertensive heart disease with heart failure (principal); E78.2 Mixed hyperlipidemia; E53.8 Deficiency of other specified B group vitamins; I50.30 Unspecified diastolic (congestive) heart failure

== ENCOUNTER → 2018-09-03 | Outpatient (REF) | payer OTHER ==
[2018-09-03 16:21] LABS: BASO % 0.3 % (0.0-1.0); EOS # 0.2 10^3/uL (0.0-0.50); EOS % 1.5 % (0.0-3.0); HEMATOCRIT 34.9 % (36.0-47.0); LYMPH # 1.4 10^3/uL (1.5-4.5); LYMPH % 14.2 % (24.0-44.0); MEAN CORPUSCULAR HEMOGLOBIN 27.2 pg (27.0-33.0); MEAN CORPUSCULAR HGB CONC 31.5 g/dl (32.0-36.5); MEAN CORPUSCULAR VOLUME 86.2 fl (80.0-96.0); MONO # 0.9 10^3/uL (0.0-0.8); MONO % 8.9 % (0.0-5.0); NEUTROPHILS # 7.2 10^3/uL (1.8-7.7); NEUTROPHILS % 74.6 % (36.0-66.0); PLATELET COUNT, AUTOMATED 252 10^3/uL (150-450); RED BLOOD COUNT 4.05 10^6/uL (4.00-5.40); WHITE BLOOD COUNT 9.7 10^3/uL (4.0-10.0)
[2018-09-03 16:24] LABS: ALBUMIN 3.3 GM/DL (3.2-5.2); BILIRUBIN,TOTAL 0.4 MG/DL (0.2-1.0); CALCIUM LEVEL 8.8 MG/DL (8.8-10.2); CREATININE FOR GFR 1.22 MG/DL (0.55-1.30); FREE T4 1.09 NG/DL (0.76-1.46); GLOMERULAR FILTRATION RATE 46.9 (>45); POTASSIUM SERUM 4.6 MEQ/L (3.5-5.1); THYROID STIMULATING HORMONE 0.515 uIU/ML (0.358-3.740); TOTAL PROTEIN 7.2 GM/DL (6.4-8.2)
== END ==
LOC: M SFHCPLAZ 13:26
PROVIDERS: ATTEND Family Medicine
DX: I50.30 Unspecified diastolic (congestive) heart failure (principal); I11.0 Hypertensive heart disease with heart failure

== ENCOUNTER → 2019-01-26 | Outpatient (REF) | payer OTHER ==
[~2019-01-26] MED LIST changes: -/DILT30TAB; -/INSULEV SC; -/PANT40TA; -/SUCR1TA PO; -AMMO12CR4 EXT; -AMMO12CR4 TOP; +AMMO12CR7 EXT; +AMMO12CR7 TOP; -BISO10TA PO; +BISO10TA13 PO; -CRES20TA PO; +CRES20TA2 PO; +DILT1TAB11; +HYDR-3715 PO; +LEVE0.01 SC; -METR-201 PO; +METR-265 PO; -NORC1TAB4 PO; +NORC1TAB7 PO; -NORCOTAB PO; +PROT1TAB2
[2019-01-26 10:52] LABS: BASO % 0.3 % (0.0-1.0); EOS # 0.1 10^3/uL (0.0-0.50); HEMATOCRIT 36.1 % (36.0-47.0); HEMOGLOBIN 11.7 g/dl (12.0-15.5); LYMPH % 15.3 % (24.0-44.0); MEAN CORPUSCULAR HEMOGLOBIN 28.3 pg (27.0-33.0); MEAN CORPUSCULAR HGB CONC 32.4 g/dl (32.0-36.5); MEAN CORPUSCULAR VOLUME 87.4 fl (80.0-96.0); MONO # 0.4 10^3/uL (0.0-0.8); MONO % 6.8 % (0.0-5.0); NEUTROPHILS # 4.9 10^3/uL (1.8-7.7); NEUTROPHILS % 75.3 % (36.0-66.0); PLATELET COUNT, AUTOMATED 158 10^3/uL (150-450); RED BLOOD COUNT 4.13 10^6/uL (4.00-5.40); WHITE BLOOD COUNT 6.5 10^3/uL (4.0-10.0)
[2019-01-26 11:15] LABS: ALBUMIN 3.6 GM/DL (3.2-5.2); BILIRUBIN,TOTAL 0.4 MG/DL (0.2-1.0); CALCIUM LEVEL 8.8 MG/DL (8.8-10.2); CREATININE FOR GFR 1.3 MG/DL (0.55-1.30); GLOMERULAR FILTRATION RATE 43.5 (>45); MAGNESIUM LEVEL 2.2 MG/DL (1.8-2.4); POTASSIUM SERUM 4.3 MEQ/L (3.5-5.1); TOTAL PROTEIN 6.6 GM/DL (6.4-8.2)
[2019-01-26 11:29] LABS: HEMOGLOBIN A1c 7.9 %
== END ==
LOC: M SFHCPLAZ 08:15
PROVIDERS: ATTEND Family Medicine
DX: N18.2 Chronic kidney disease, stage 2 (mild) (principal)

== ENCOUNTER 2019-05-14 07:54 | Day surgery (SDC) | payer OTHER, MEDICARE ==
[~2019-05-14] VITALS: Ht 167.6 cm; Wt 93.4 kg
[~2019-05-14 07:54] MED LIST changes: -BISO5TAB5 PO; +BISO5TAB9 PO; +CYAN500T8 PO; +LIDOCAINE 2% INJ 100 MG/5 ML SDV (FOR ANES.) As Ordered ONE; +NS 1,000 ML IV ONE; +PROPOFOL 200 MG/20 ML VIAL As Ordered ONE; -VITA500T3 PO
--- NOTE | 2019-05-14 09:43 | ROOR ---
Patient Name: Moira Benitez Procedure Date: 05/14/2019 9:09 AM Date of : 1950 Age: 68 Room: [id number] Gender: Female Note Status: Finalized Procedure: Colonoscopy Indications: High risk colon cancer surveillance: Personal history of colonic polyps, Surveillance: Personal history of adenomatous polyps, inadequate prep on last colonoscopy (less than 1 year ago) Providers: Dae WHITESIDE MD Referring MD: Nabil Lennon MD Requesting Provider: Medicines: Monitored Anesthesia Care Complications: No immediate complications. Procedure: Pre-Anesthesia Assessment: - The heart rate, respiratory rate, oxygen saturations, blood pressure, adequacy of pulmonary ventilation, and response to care were monitored throughout the procedure. The Colonoscope was introduced through the anus and advanced to the cecum, identified by appendiceal orifice and ileocecal valve. The colonoscopy was performed without difficulty. The patient tolerated the procedure well. The quality of the bowel preparation was adequate. Findings: The perianal and digital rectal examinations were normal. Two flat polyps were found in the ascending colon and cecum. The polyps were 4 to 7 mm in size. These polyps were removed with a cold snare. Resection and retrieval were complete. To prevent bleeding after the polypectomy, two hemostatic clips were successfully placed. Two sessile polyps were found in the sigmoid colon and splenic flexure. The polyps were diminutive in size. These polyps were removed with a cold snare. Resection and retrieval were complete. Mild sigmoid diverticulosis and small internal hemorrhoids. The exam was otherwise without abnormality on direct and retroflexion views. Impression: - Two 4 to 7 mm polyps in the ascending colon and in the cecum, removed with a cold snare. Resected and retrieved. Clips were placed. - Two diminutive polyps in the sigmoid colon and at the splenic flexure, removed with a cold snare. Resected and retrieved. - Mild sigmoid diverticulosis and small internal hemorrhoids. - The examination was otherwise normal on direct and retroflexion views. Recommendation: - Repeat colonoscopy in 3 years for surveillance. - Resume Eliquis (apixaban) at prior dose tomorrow. Dae Whiteside MD Dae WHITESIDE MD 05/14/2019 9:43:29 AM Electronically signed by Dae WHITESIDE MD Number of Addenda: 0 Note Initiated On: 05/14/2019 9:09 AM Estimated Blood Loss: Estimated blood loss: none.
[2019-05-14 10:00] VITALS: BP 146/65
== END 2019-05-14 10:09 | disposition home or self-care (01) ==
LOC: M OPP 07:54
PROVIDERS: ATTEND Internal Medicine Gastroenterology
DX: Z12.11 Encounter for screening for malignant neoplasm of colon (principal); Z86.010 Personal history of colon polyps; D12.2 Benign neoplasm of ascending colon; D12.0 Benign neoplasm of cecum; D12.5 Benign neoplasm of sigmoid colon; E11.9 Type 2 diabetes mellitus without complications; I48.91 Unspecified atrial fibrillation; Z79.4 Long term (current) use of insulin; Z79.84 Long term (current) use of oral hypoglycemic drugs; Z79.899 Other long term (current) drug therapy; Z88.2 Allergy status to sulfonamides; Z88.8 Allergy status to other drugs, medicaments and biological substances; Z87.891 Personal history of nicotine dependence; Z98.84 Bariatric surgery status; Z85.3 Personal history of malignant neoplasm of breast; Z95.4 Presence of other heart-valve replacement

== ENCOUNTER → 2019-08-13 | Outpatient (CLI) | payer MEDICARE, OTHER ==
[~2019-08-13] MED LIST changes: -LIDOCAINE 2% INJ 100 MG/5 ML SDV (FOR ANES.) As Ordered ONE; -NS 1,000 ML IV ONE; -PROPOFOL 200 MG/20 ML VIAL As Ordered ONE
[2019-08-13 10:43] LABS: BASO % 0.2 % (0.0-1.0); EOS # 0.1 10^3/uL (0.0-0.5); EOS % 1.7 % (0.0-3.0); HEMATOCRIT 38.5 % (36.0-47.0); HEMOGLOBIN 12.2 g/dl (12.0-15.5); LYMPH # 1.1 10^3/uL (1.5-5.0); LYMPH % 13.5 % (24.0-44.0); MEAN CORPUSCULAR HGB CONC 31.7 g/dl (32.0-36.5); MEAN CORPUSCULAR VOLUME 88.5 fl (80.0-96.0); MONO # 0.7 10^3/uL (0.0-0.8); MONO % 8.6 % (0.0-5.0); NEUTROPHILS # 6.2 10^3/uL (1.5-8.5); NEUTROPHILS % 75.5 % (36.0-66.0); PLATELET COUNT, AUTOMATED 168 10^3/uL (150-450); RED BLOOD COUNT 4.35 10^6/uL (4.00-5.40); WHITE BLOOD COUNT 8.2 10^3/uL (4.0-10.0)
[2019-08-13 11:16] LABS: ALBUMIN 3.3 GM/DL (3.2-5.2); BILIRUBIN,TOTAL 0.6 MG/DL (0.2-1.0); CALCIUM LEVEL 8.7 MG/DL (8.8-10.2); CREATININE FOR GFR 1.21 MG/DL (0.55-1.30); FREE T4 1.05 NG/DL (0.76-1.46); GLOMERULAR FILTRATION RATE 47.2 (>45); MAGNESIUM LEVEL 1.8 MG/DL (1.8-2.4); POTASSIUM SERUM 4.3 MEQ/L (3.5-5.1); THYROID STIMULATING HORMONE 1.7 uIU/ML (0.358-3.740); TOTAL PROTEIN 6.6 GM/DL (6.4-8.2)
== END ==
LOC: M LAB 09:58
PROVIDERS: ATTEND Family Medicine
DX: I11.0 Hypertensive heart disease with heart failure (principal); I50.30 Unspecified diastolic (congestive) heart failure

== ENCOUNTER → 2019-08-23 | Outpatient (REF) | payer MEDICARE, OTHER ==
[~2019-08-23] MED LIST changes: +BISO5TAB14 PO; -BISO5TAB9 PO; +ONDA-83 PO; -ONDA4TAB5 PO
[2019-08-23 14:46] LABS: BASO % 0.3 % (0.0-1.0); EOS # 0.2 10^3/uL (0.0-0.5); EOS % 2.3 % (0.0-3.0); HEMATOCRIT 39.9 % (36.0-47.0); HEMOGLOBIN 12.8 g/dl (12.0-15.5); LYMPH # 1.4 10^3/uL (1.5-5.0); LYMPH % 15.3 % (24.0-44.0); MEAN CORPUSCULAR HEMOGLOBIN 27.9 pg (27.0-33.0); MEAN CORPUSCULAR HGB CONC 32.1 g/dl (32.0-36.5); MEAN CORPUSCULAR VOLUME 87.1 fl (80.0-96.0); MONO # 0.5 10^3/uL (0.0-0.8); MONO % 5.3 % (0.0-5.0); NEUTROPHILS # 6.8 10^3/uL (1.5-8.5); NEUTROPHILS % 76.3 % (36.0-66.0); PLATELET COUNT, AUTOMATED 204 10^3/uL (150-450); RED BLOOD COUNT 4.58 10^6/uL (4.00-5.40); WHITE BLOOD COUNT 8.9 10^3/uL (4.0-10.0)
[2019-08-23 15:01] LABS: HEMATOCRIT 40.1 % (36.0-47.0)
[2019-08-23 15:02] LABS: ALBUMIN 3.5 GM/DL (3.2-5.2); BILIRUBIN,TOTAL 0.5 MG/DL (0.2-1.0); CALCIUM LEVEL 9.2 MG/DL (8.8-10.2); CHOLESTEROL RISK RATIO 5.074 (<5); CREATININE FOR GFR 1.4 MG/DL (0.55-1.30); GLOMERULAR FILTRATION RATE 39.9 (>45); POTASSIUM SERUM 4.9 MEQ/L (3.5-5.1); TOTAL PROTEIN 7.1 GM/DL (6.4-8.2)
[2019-08-23 15:37] LABS: TOTAL 25(OH) VITAMIN D 51.3 NG/ML (30.0-100.0)
== END ==
LOC: M SFHCPLAZ 11:59
PROVIDERS: ATTEND Family Medicine
DX: E53.8 Deficiency of other specified B group vitamins (principal); E55.9 Vitamin D deficiency, unspecified; E11.9 Type 2 diabetes mellitus without complications
CPT/HCPCS: 36415; 80053; 80061; 82306; 82607; 82747; 83036; 83970; 85025; 85046; G0463

== ENCOUNTER → 2019-09-07 | Outpatient (CLI) | payer MEDICARE, OTHER ==
[~2019-09-07] MED LIST changes: +IRBE75TA4 PO; -IRBE75TA5 PO
--- NOTE | 2019-09-07 15:47 | REPPI ---
Lumbar spine seven views including flexion and extension views: Comparison is 03/09/2017. Vertebral body heights and alignment are normal. There is no spondylolysis. There is no spondylolisthesis. There is no listhesis on the flexion and extension views. The pedicles and facets are unremarkable. The sacroiliac articulations are unremarkable. There are surgical clips in the abdominal right upper quadrant. There are surgical staple lines in the abdominal left upper quadrant. Impression: Mild multilevel degenerative disc disease without interval change. There is no listhesis. There is no listhesis on the flexion and extension views. Electronically Signed by Sammy Velásquez MD 09/07/2019 03:38 P
== END ==
LOC: M PLAIMG 14:37
PROVIDERS: ATTEND Physician Assistant Medical
DX: M53.3 Sacrococcygeal disorders, not elsewhere classified (principal)
CPT/HCPCS: 72110; G0463

== ENCOUNTER → 2019-09-11 | Outpatient (CLI) | payer MEDICARE, OTHER ==
[~2019-09-11] MED LIST changes: -IRBE75TA4 PO; +IRBE75TA5 PO
--- NOTE | 2019-09-12 12:56 | REPVR ---
PROCEDURE INFORMATION: Exam: MR Lumbar Spine Without Contrast. Exam date and time: 09/11/2019 12:07 PM Age: 68 years old Clinical indication: Low back pain; Additional info: Sacral back pain TECHNIQUE: Imaging protocol: Multiplanar magnetic resonance images of the lumbar spine without intravenous contrast. COMPARISON: CR SPINE LS COMPLETE 09/07/2019 2:51 PM FINDINGS: Vertebrae: The alignment is anatomic. The vertebral body heights are maintained. Old Schmorl's node superior endplate of L3. No compression fracture. No suspicious marrow replacing lesions. Spinal cord: The demonstrated cord is normal in signal intensity. The conus medullaris terminates normally. L1-L2: No disc herniation. Mild facet degenerative change on the right with ligamentous infolding. No stenosis. L2-L3: Disc desiccation. Broad annular bulging. Small annular fissure posteriorly in the midline. No overt disc herniation. No central canal stenosis. The disc bulges asymmetrically toward the inferior neural foramen on the left abutting the left L2 root. Please correlate clinically. L3-L4: Disc desiccation. Broad annular bulging. Facet degenerative change with ligamentous infolding. Early central canal stenosis with effacement of the epidural fat anterolaterally toward the right. The broad annular bulging extends into the inferior neural foramen bilaterally abutting the exiting L3 roots. Please correlate clinically. L4-L5: Disc desiccation. Broad annular bulging impressing on the ventral aspect of the sac extending asymmetrically toward the neural foramen on the left. The disc displaces the left L4 root inferior laterally. The right L4 root is normally seen. Facet degenerative changes with ligamentous infolding and early central canal stenosis. There is effacement of the epidural fat anterolateral to the sac on the left. L5-S1: No disc herniation. No stenosis. The exiting L5 roots in the traversing S1 roots well seen. Mild facet degenerative change. No stenosis. Soft tissues: No paraspinal soft tissue mass. IMPRESSION: 1. Degenerative changes most prominent at L2-L3, L3-L4 and L4-L5. 2. At L2-L3, broad annular bulging with a small annular fissure posteriorly in the midline. No overt disc herniation. No central canal stenosis. The disc bulges asymmetrically toward the inferior neural foramen on the left abutting the left L2 root. Please correlate clinically. 3. At L3-L4, broad annular bulging. Early central canal stenosis with effacement of the epidural fat anterolaterally toward the right. The broad annular bulging extends into the inferior neural foramen bilaterally abutting the exiting L3 roots. Please correlate clinically. 4. At L4-L5, broad annular bulging impressing on the ventral aspect of the sac extending asymmetrically toward the neural foramen on the left. The disc displaces the left L4 root inferior laterally. The right L4 root is normally seen. Facet degenerative changes with ligamentous infolding and early central canal stenosis. There is effacement of the epidural fat anterolateral to the sac on the left. Electronically signed by: Loy Mirnada On 09/12/2019 12:58:15 PM
== END ==
LOC: M RAD 11:09
PROVIDERS: ATTEND Physician Assistant Medical
DX: M54.5 Low back pain (principal)

== ENCOUNTER → 2019-12-08 | Outpatient (CLI) | payer MEDICARE, OTHER ==
[~2019-12-08] MED LIST changes: +IRBE75TA4 PO; -IRBE75TA5 PO; +VITA-243 PO; -VITA500T PO
[2019-12-08 13:52] LABS: CALCIUM LEVEL 8.9 MG/DL (8.8-10.2); CREATININE FOR GFR 1.42 MG/DL (0.55-1.30); GLOMERULAR FILTRATION RATE 39.2 (>45); MAGNESIUM LEVEL 2.1 MG/DL (1.8-2.4); POTASSIUM SERUM 4.7 MEQ/L (3.5-5.1)
== END ==
LOC: M WUC 11:10
PROVIDERS: ATTEND Physician Assistant
DX: I50.32 Chronic diastolic (congestive) heart failure (principal); I48.0 Paroxysmal atrial fibrillation

== ENCOUNTER → 2019-12-09 | Outpatient (CLI) | payer MEDICARE, OTHER ==
--- NOTE | 2019-12-11 02:48 | ECWPNPC ---
PATIENT NAME: ELODIA MALDONADO : 1950 GENDER: FEMALE VISIT DATE: 12/09/2019 DISCHARGE DATE: 12/09/19 1202 VISIT LOCKED DATE TIME: PHYSICIAN: INDU DECKER PHYSICIAN PAGER NO: [phone] RESOURCE: INDU DECKER REASON FOR APPOINTMENT 1. LOWER BACK PAIN HISTORY OF PRESENT ILLNESS PAIN SCREENING: PATIENT HAS A COMPLAINT OF ACUTE OR CHRONIC PAIN :YES 61-YEAR-OLD FEMALE IN FOR INITIAL PAIN CONSULT. SHE RATES HER PAIN CURRENTLY AT A 3 OUT OF 10 AND DESCRIBES IT ACHING. PATIENT ADMITS THAT THE PAIN HAS BEEN PRESENT FOR APPROXIMATELY ONE YEAR STATUS POST GALLBLADDER SURGERY. SHE DENIES HISTORY OF TRAUMA AND/OR ANY PROCEDURES/MEDICATIONS THAT SHE HAS TRIED TO HELP ALLEVIATE HER SYMPTOMS. FALL RISK SCREENING: SCREENING :NO FALLS REPORTED IN THE LAST YEAR CURRENT MEDICATIONS TAKING ERGOCALCIFEROL 25562 UNIT CAPSULE 1 CAPSULE ORALLY ONCE A WEEK TAKING DILTIAZEM HCL 30 MG TABLET 1 TABLET BEFORE MEALS AND AT BEDTIME ORALLY TWICE A DAY TAKING BISOPROLOL FUMARATE 5 MG TABLET 1 TABLET ORALLY ONCE A DAY TAKING VOLTAREN 1 % GEL 4 GM TRANSDERMAL L ELBOW TAKING DEXILANT 60 MG CAPSULE DELAYED RELEASE 1 CAPSULE ORALLY AC DINNER TAKING CARAFATE 1 GM TABLET 1 TABLET ORALLY 3 TIMES A DAY WITH MEALS AND AT BEDTIME TAKING RANITIDINE HCL 300 MG CAPSULE 1 CAPSULE ORALLY 30 MINUTES BEFORE DINNER TAKING METOCLOPRAMIDE HCL 5 MG TABLET 1 TAB ORALLY AC TID AND QHS TAKING CEFADROXIL 500 MG CAPSULE 2 CAPSULES BY MOUTH TWICE A DAY TAKING NEEDLE (DISP) 27G X 5/8 MISCELLANEOUS 1 SUBCUTANEOUSLY UP TO 5 TIMES A DAY TAKING SHOES _ _ DIRECTED, DIABETIC C DM NEUROPATHY _ QD TAKING ONE TOUCH ULTRA TEST STRIPS 1 STRIP DIRECTED TOP TEST 4 TIMES A DAY 250 TAKING CPAP MASK CPAP MASK AND SUPPLIES - DX; 327.23 TAKING LUMIGAN 0.03 % SOLUTION 1 DROP INTO AFFECTED EYE EVERY EVENING OPHTHALMIC ONCE A DAY TAKING SIMBRINZA 1-0.2 % SUSPENSION 1 DROP BOTH EYES OPHTHALMIC TWO TIMES A DAY TAKING MAY HAVE BIPAP PRESSURE -FOR SLEEP -WITH HEATED HUMIDIFIER AND RELATED SUPPLIES -REPAIR/REPLACE NEEDED TAKING LAC-HYDRIN 12 % CREAM 1 APPLICATION TO AFFECTED AREA EXTERNALLY TWICE A DAY NEEDED TAKING OXYGEN 2L C PORTABILITY 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, J44.9,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 TAKING MAY HAVE - - DIRECTED POWER SCOOTER BATTERY NEEDED DX:EJ44.9, NOTES: MIMI TAKING CALCIUM 600 + D 600-400 MG-UNIT TABLET 1 TABLET ORALLY ONCE A DAY TAKING BLOOD GLUCOSE TEST STRIP - STRIP DIRECTED-ONE TOUCH VERIO FLEX SUBCUTANEOUSLY DX: E11.9 FOUR TIIMES A DAY TAKING BRA/PANT POUCH - MISCELLANEOUS DIRECTED DX: D05.10 DAILY TAKING ASPIRIN 81 MG TABLET DELAYED RELEASE 1 TABLET ORALLY ONCE A DAY TAKING NOVOLOG FLEXPEN 100 UNIT/ML SOLUTION INSULIN SUBCUTANEOUS AC TID/QHS STARTING AT 150-200 2 U FOR Q50, MDI 40 TAKING TRESIBA FLEXTOUCH 200 UNIT/ML SOLUTION PEN-INJECTOR DIRECTED SUBCUTANEOUS 10 UNITS AT BEDTIME TAKING GLUCOSE STRIP (VERIO IQ) DIRECTED _ AC TID/QHS TAKING SPIRONOLACTONE 25 MG TABLET 1 TABLET ORALLY ONCE A DAY TAKING POTASSIUM CHLORIDE 10 10 MEQ TABLET 1 TAB ORAL QD TAKING TORSEMIDE 10 MG TABLET 2 TABS IN AM, 1 TABS IN PM ORALLY BID TAKING IRBESARTAN 75 MG TABLET 1 TABLET ORALLY EVERY MORNING TAKING ACETAMINOPHEN 500 MG TABLET 1 TABLET ORALLY THREE TIMES DAILY NEEDED TAKING GABAPENTIN 300 MG CAPSULE 1 CAPSULE ORALLY BID TAKING ROSUVASTATIN CALCIUM 20 MG TABLET 1 TABLET ORALLY ONCE A DAY TAKING IRON 325 (65 FE) MG TABLET 2 TABLET ORALLY EVERY OTHER DAY TAKING COLESEVELAM HCL 625 MG TABLET 1 TABLETS WITH MEALS ORALLY TWICE A DAY TAKING ELIQUIS 5 MG TABLET 1 TAB ORALLY BID TAKING AMMONIUM LACTATE 12 % LOTION 1 APPLICATION EXTERNALLY TWICE A DAY NOT-TAKING ADVAIR DISKUS 500-50 MCG/DOSE AEROSOL POWDER BREATH ACTIVATED 1 PUFF INHALATION TWICE A DAY NOT-TAKING ALBUTEROL SULFATE HFA 108 (90 BASE) MCG/ACT AEROSOL SOLUTION 2 PUFFS INHALATION EVERY 4 HRS PRN COUGH/WHEEZE NOT-TAKING ALBUTEROL SULFATE (5 MG/ML) 0.5% NEBULIZATION SOLUTION 0.5 ML INHALATION EVERY 4 HRS PRN COUGH/WHEEZE NOT-TAKING VITAMIN B-12 500 MCG TABLET 1 TABLET ORALLY ONCE A DAY NOT-TAKING NASONEX 50 MCG/ACT SUSPENSION 1 SPRAYS NASALLY ONCE A DAY NOT-TAKING BISOPROLOL FUMARATE 5 MG TABLET 1 TABLET ORALLY ONCE A DAY NOT-TAKING TIZANIDINE HCL 2 MG TABLET 1 TABLET NEEDED ORALLY THREE TIMES A DAY NOT-TAKING WELCHOL 625 MG TABLET 1 TAB ORALLY TWICE A DAY NOT-TAKING APIXABAN 5 MG TABLET 1 TAB ORALLY BID NOT-TAKING ASPIRIN 81 MG TABLET DELAYED RELEASE 1 TABLET ORALLY ONCE A DAY MEDICATION LIST REVIEWED AND RECONCILED WITH THE PATIENT PAST MEDICAL HISTORY HYPERTENSION/HYPERTENSIVE HEART DISEASE/CHF CHRONIC SECONDARY TO DIASTOLIC DYSFUNCTION-09/2014 SPECT WITHOUT REVERSIBILITY-YANDY, 05/2011 NORMAL CARDIAC CATHETERIZATION-SHANON/01/2019 TTE-SEVERE LAE, MILD CONCENTRIC LVH, MODERATE LAE/PHTH, MILD MS/MR, NORMAL BIOPROSTHETIC AVR RST LOW RISK-KEBEDE HYPERLIPIDEMIA 2B ANEMIA SECONDARY TO IRON DEFICIENCY AND B12 DEFICIENCY GERD/MEDIUM HIATAL HERNIA C LARGE-SIZED AND CHRONIC MILD ESOPHAGITIS BY GEJ BX BY 02/2013 EGD-W OBESITY STATUS POST LAPAROSCOPIC KIRBY-EN-Y GASTRIC BYPASS JUNE 2007 HISTORY OF TUBULOVILLOUS ADENOMA CHRONIC PERIVAGINAL ABSCESSES SEVERE AORTIC STENOSIS STATUS POST BIOPROSTHETIC VALVE REPLACEMENT-MAY 21, 2011-[facility] COPD-09/2014 FEV1 1.2L (44%)/RATIO 79 % ISMLON-EOVMOZQ-W/W NONSPECIFIC FLOW RATE REDUCTION HISTORY OF UPPER GI BLEED 2010-EGD SHOWING GASTRIC POUCH WITH ULCERATIONASTROJEJUNAL ANASTOMOSIS WITH ULCERATION-JIMI EGD MILD ESOPHAGITIS S METAPLASIA SINUSITIS, CHRONIC-03/2012 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 L NF COMPRESSION S COMPRESSION-ORDERED BY DR. PATIÑO 09/23/14 CTA CHEST - FOR PE, BUT C 20 X 11 LLL NC NODULE, THEREFORE REFERRED TO DR. HUGHES, WHO ON 10/03/14 FELT NODULE WAS UNCHNAGED C/W 2010 AND DEFERRED ANY FURTHER WORKUP. L BREAST DCIS, COMEDO TYPE C CENTRAL NECROSIS, GRADE 2-3/3, ER+, MS+ BY US GUIDED BIOPSY 01/20/15-[facility] IR S/P BILATERAL MASTECTOMY 04/2015-[facility], CHRONIC-NEW ONSET-06/27/15 07/30/16 SUDDEN OS BRAO-08/07/16 ENRIQUETA NO LA THROMBUS BUT MODERATE ATHEROMA IN DISTAL AORTIC ARCH AND DESCENDING THORACIC AORTA-ANTECOL TUBULAR ADENOMAE 4-7 MM BY 05/2019 COLON-REINDL PERICARDITIS PNEUMONIA ALLERGIES ALTACE: COUGH - SIDE EFFECTS NEOMYCIN SULFATE: RASH - ALLERGY SULFA (FOR ALLERGY USE ONLY): ANAPHYLAXIS - ALLERGY SURGICAL HISTORY COLONOSCOPY WITH HYPERPLASTIC POLYP-JIMI NOVEMBER 2007, 02/2013 [facility]SO FOR NONCANCEROUS REASONS VALVE REPLACEMENT GASTRIC BYPASS LEFT BREAST US GUIDED BREAST BIOPSY 01/20/15 LEFT BREAST LUMPECTOMY 03/13/15 LEFT BREAST LUMPECTOMY 04/04/15 [facility] OPEN CHOLECYSTECTOMY, INTRAOPERATIVE CHOLANGIOGRAM, CBD REMOVAL OF STONE, T-TUBE PLACEMENT-NICOLAS 07/31/18 BLADDER SUSPENSION 1979 FAMILY HISTORY FATHER: 81 YRS, 2 CVA/CAD, DM2 MOTHER: 41 YRS, 2 COLON CANCER, DX AT 40 YP 1 BROTHER(S) , 3 SISTER(S) . 1 SON(S) . PGM (60S) AND 2 MATERNAL AUNTS (40S) C BREAST CANCER. SOCIAL HISTORY GENERAL: TOBACCO USE ARE YOU A:NONSMOKER LATEX QUESTIONNAIRE LATEX ALLERGY : HAVE YOU EVER DEVELOPED ANY TYPE OF REACTION AFTER HANDLING LATEX PRODUCTS SUCH RUBBER GLOVES, CONDOMS, DIAPHRAGMS, BALLOONS, SOCKS, OR UNDERWEAR?NO LATEX ALLERGY : HAVE YOU EVER DEVELOPED ANY TYPE OF REACTION DURING OR AFTER DENTAL APPOINTMENT, VAGINAL/RECTAL EXAMINATION, SURGICAL PROCEDURE, OR ANY OTHER EXPOSURE?NO DATE ASKED : 02/23/2019 LATEX RISK : HAVE YOU EVER HAD ANY DIFFICULTY BREATHING OR HIVES AFTER EATING OR HANDLING ANY FRUITS, OR VEGETABLES; SUCH KIWI, BANANAS, STONE FRUITS, OR CHESTNUTSNO LATEX RISK : DO YOU HAVE A PREVIOUS PERSONAL HISTORY OF MORE THAN NINE SURGERIES, SPINA BIFIDA, OR REPEATED CATHERIZATIONS? NO LATEX RISK : ARE YOU FREQUENTLY EXPOSED TO LATEX PRODUCTS IN YOUR OCCUPATION?NO BMI CARE GOAL FOLLOW-UP ABOVE NORMAL BMI FOLLOW-UPGIVING ENCOURAGEMENT TO EXERCISE ALCOHOL SCREENING DID YOU HAVE A DRINK CONTAINING ALCOHOL IN THE PAST YEAR?YES HOW OFTEN DID YOU HAVE SIX OR MORE DRINKS ON ONE OCCASION IN THE PAST YEAR?NEVER (0 POINTS) HOW MANY DRINKS DID YOU HAVE ON A TYPICAL DAY WHEN YOU WERE DRINKING IN THE PAST YEAR?1 OR 2 (0 POINTS) HOW OFTEN DID YOU HAVE A DRINK CONTAINING ALCOHOL IN THE PAST YEAR?MONTHLY OR LESS (1 POINT) POINTS1 INTERPRETATIONNEGATIVE RECREATIONAL DRUG USE DRUG USE?NO CAFFEINE CAFFEINE USE?YES HOW OFTEN AND HOW MUCH? EVERYDAY 2 CUPS SEXUAL HX HAD SEX IN THE LAST 12 MONTHS (VAGINAL, ORAL, OR ANAL)?YES WITHMEN ONLY USE PROTECTION?NO HAVE YOU EVER HAD AN STD?NO HIV / HEP-C SCREENING HIV TEST OFFERED TO PATIENT:YES DATE OFFERED:10/22/2016 TEST ACCEPTED:NO HEP-C TEST OFFERED TO PATIENT:YES DATE OFFERED:10/22/2016 REASON:PATIENT DECLINED TEST ACCEPTED:YES ORTHODOX [id number] ISLAM LANGUAGE LANGUAGES SPOKEN:CROATIAN LEARNING BARRIERS / SPECIAL NEEDS CHANGE FROM LAST VISIT?NO BARRIERS TO LEARNING?NO HEARING IMPAIRED?NO VISION IMPAIRED?YES COGNITIVELY IMPAIRED?NO :CORRECTIVE LENSES READINESS TO LEARN?YES LEARNING PREFERENCES?NO LEARNING CAPABILITIES PRESENT?YES EMOTIONAL BARRIERS?NO SPECIAL DEVICES?NO DOMESTIC VIOLENCE DO YOU FEEL SAFE IN YOUR ENVIRONMENT?YES MARITAL STATUS: . NEW PATIENT PAIN DIARY TODAY'S VISIT 12/09/19 PATIENT DESCRIBES PAIN :ACHING, HAVE IT ALL THE TIME FROM 0-10, WHAT LEVEL IS YOUR PAIN TODAY?3 PRECIPITATING FACTORS SITTING ALLEVIATING FACTORS REPOSITIONING IMPACT ON FUNCTION SOMETIMES PAIN CLINIC PFS, CLERGY, PUBLIC HEALTH REFERRALS HAS THE PATIENT BEEN EDUCATED REGARDING HIS/HER PLAN OF CARE?YES HAS THE PATIENT BEEN EDUCATED REGARDING PAIN, THE RISK FOR PAIN, THE IMPORTANCE OF EFFECTIVE PAIN MANAGEMENT, AND THE PAIN ASSESSMENT PROCESS?YES ADVANCE DIRECTIVE ADVANCE DIRECTIVE DISCUSSED WITH PATIENT:YES DECLINED HOSPITALIZATION/MAJOR DIAGNOSTIC PROCEDURE VISION LOSS-LEFT EYE 07/18/16-07/20/16 SEPSIS 2 GANGRENOUS CHOLECYSTITIS AND OBSTRUCTING CHOLEDOCHOLITHIASIS/CHOLANGITIS SP OPEN KIKO, INTRAOPERATIVE CHOLANGIOGRAM 07/29- LEON III 2 DEHYDRATION/BP MEDS (08/12 CR 3.0 Natalie MANN MA), NORMAL B RENAL US, BCX1 NG, UCX1 NG 08/12-03/29 REVIEW OF SYSTEMS REVIEWED BY: PROVIDER: AGUSTO ALCALA-C . CONSTITUTIONAL: ANY CHANGE IN YOUR MEDICAL CONDITION? NO . CHILLS NO . FEVER NO . INFECTION: DO YOU HAVE NEW INFECTIONS? NO . DO YOU HAVE HISTORY OF MRSA? NO . MUSCULOSKELETAL: ANY NEW PATTERNS OF PAIN OR NUMBNESS? NO . SYSTEMIC LUPUS NO . GASTROENTEROLOGY: ANY NEW CHANGE IN BOWEL CONTROL? YES, LOOSE STOOLS AND DIARRHEA SINCE GALL BLADDER OUT . BARRETTS ESOPHAGUS NO . CIRRHOSIS NO . HEPATITIS NO . LIVER FAILURE NO . ACID REFLUX YES . UNEXPLAINED WEIGHT LOSS NO . GENITOURINARY: ANY NEW CHANGE IN BLADDER CONTROL? NO . IS THERE A CHANCE YOU COULD BE ? NO . HEMATOLOGY/LYMPH: DO YOU TAKE ANY BLOOD THINNERS? (FOR EXAMPLE- COUMADIN, PLAVIX, AGGRENOX, PLATEL, PRADAXA, OR XARELTO) YES, ELIQUIS . WHEN WAS YOUR LAST DOSE? DATE: TIME: . LOW PLATELET COUNT NO . SICKLE CELL DISEASE NO . VON WILLIEBRANDS NO . FACTOR V LEIDEN NO . THALLASEMIA NO . ANEMIA NO . EASY BRUISING NO . NEUROLOGY: HAVE YOU FALLEN IN THE PAST 12 MONTHS? NO . ANY NEW EXTREMITY NUMBNESS OR WEAKNESS? NO . HEAD INJURY NO . DEMENTIA NO . CEREBRAL PALSY NO . MULTIPLE SCLEROSIS NO . DIZZINESS NO . HEADACHE NO . STROKES YES, LEFT EYE 3-4 YEARS AGO . VERTIGO NO . CARDIOLOGY: DO YOU HAVE A PACEMAKER OR DEFIBRILLATOR? NO . ANGINA NO . HEART ATTACK NO . HEART SURGERY YES . CONGESTIVE HEART FAILURE/FLUID OVERLOAD YES . CHEST PAIN NO . HIGH BLOOD PRESSURE ON MEDICATION(S) . IRREGULAR HEART BEAT A-FIB . RESPIRATORY: HAVE YOU BEEN SICK IN THE PAST WEEK? NO . FEVER NO . FLU LIKE SYMPTOMS? NO . CPAP YES . BYPAP NO . ASTHMA NO . EMPHYSEMA NO . CHRONIC LUNG DISEASES YES, COPD . SHORTNESS OF BREATH ON EXERTION NO . COUGH NO . SNORING NO . INTEGUMENTARY: DO YOU HAVE ANY RASHES OR OPEN SORES? NO . ALLERGIC/IMMUNO: ARE YOU ALLERGIC TO IV DYE? NO . ANY NEW ALLERGIES? NO . PSYCHIATRIC: DO YOU HAVE THOUGHTS OF HURTING YOURSELF OR SOMEONE ELSE? NO . ARE YOU ABUSED, NEGLECTED, OR IN AN UNSAFE ENVIRONMENT? NO . ENDOCRINOLOGY: ARE YOU DIABETIC? YES . THYROID DISORDER NO . OTHER: DO YOU NEED ANY PRESCRIPTIONS? NO . IF YES, PLEASE LIST: ____ . ANY NEW PROBLEMS WITH YOUR MEDICATIONS? NO . WHEN DID YOU LAST EAT? ____ . WHEN DID YOU LAST DRINK? ____ . WHAT DID YOU LAST DRINK? ____ . NAME OF PERSON DRIVING YOU HOME? ____ . DO YOU HAVE ANY OTHER QUESTIONS OR CONCERNS NO . VITAL SIGNS WT 220.0 LBS, HT 66 IN, BMI 35.51 INDEX, BP 136/61 MM HG, HR 71 /MIN, RR 20 /MIN, TEMP 96.0 F, OXYGEN SAT % 95%, SAFE IN ENV? (Y/N) Y, NA INITIALS AW 1051, REVIEWED BY: EM. EXAMINATION GENERAL EXAMINATION: GENERALNO ACUTE DISTRESS, WELL NOURISHED AND HYDRATED. PSYCHAPPROPRIATE MOOD AND AFFECT . LUNGS:CLEAR TO AUSCULTATION BILATERALLY, NO WHEEZES, RHONCHI, RALES. HEART:NO MURMURS, REGULAR RATE AND RHYTHM. BACK:POINT TENDER OVER COCCYX . ASSESSMENTS COCCYDYNIA - M53.3 (PRIMARY) TREATMENT COCCYDYNIA NOTES: GANGLION IMPAR BLOCK. CLINICAL NOTES: 61-YEAR-OLD FEMALE IN FOR INITIAL PAIN CONSULT. GIVEN PRESENTING SYMPTOMS AND RESULTS OF PHYSICAL EXAMINATION RECOMMENDED GANGLION IMPAR BLOCK WITH POST PROCEDURAL FOLLOW-UP. PATIENT HAS EXPRESSED UNDERSTANDING OF AND WAS IN AGREEMENT WITH TREATMENT PLAN. GIVEN TIME TO ASK QUESTIONS AND EXPRESS CONCERNS. PROCEDURE CODES FA211 ESTABILISHED PATIENT [facility] CHARGE DISPOSITION & COMMUNICATION FOLLOW UP POSTPROCEDURE (REASON: GANGLION IMPAR BLOCK) ELECTRONICALLY SIGNED BY CARI PRADO ON 12/10/2019 AT 09:26 AM EDT DISCLAIMER : THIS IS A VISIT SUMMARY EXTRACTED FROM THE [employer] CHART. IT IS NOT A COPY OF THE [employer] PROGRESS NOTE. DUYEN
== END ==
LOC: M PAIN 11:00
PROVIDERS: ATTEND Family Medicine
DX: M53.3 Sacrococcygeal disorders, not elsewhere classified (principal); I10 Essential (primary) hypertension; E11.9 Type 2 diabetes mellitus without complications; E78.5 Hyperlipidemia, unspecified; D50.9 Iron deficiency anemia, unspecified; K21.9 Gastro-esophageal reflux disease without esophagitis; J44.9 Chronic obstructive pulmonary disease, unspecified; Z98.84 Bariatric surgery status; Z88.1 Allergy status to other antibiotic agents; Z88.2 Allergy status to sulfonamides; Z88.8 Allergy status to other drugs, medicaments and biological substances; Z79.01 Long term (current) use of anticoagulants; Z79.4 Long term (current) use of insulin; Z79.82 Long term (current) use of aspirin; Z79.899 Other long term (current) drug therapy

== ENCOUNTER → 2020-01-11 | Outpatient (REF) | payer MEDICARE, OTHER ==
[2020-01-11 14:10] LABS: BASO % 0.3 % (0.0-1.0); EOS # 0.1 10^3/uL (0.0-0.5); EOS % 1.4 % (0.0-3.0); HEMATOCRIT 34.8 % (36.0-47.0); HEMOGLOBIN 11.4 g/dl (12.0-15.5); LYMPH # 1.2 10^3/uL (1.5-5.0); LYMPH % 12.2 % (24.0-44.0); MEAN CORPUSCULAR HEMOGLOBIN 29.4 pg (27.0-33.0); MEAN CORPUSCULAR HGB CONC 32.8 g/dl (32.0-36.5); MEAN CORPUSCULAR VOLUME 89.7 fl (80.0-96.0); MONO # 0.6 10^3/uL (0.0-0.8); MONO % 5.5 % (0.0-5.0); NEUTROPHILS # 8.1 10^3/uL (1.5-8.5); PLATELET COUNT, AUTOMATED 137 10^3/uL (150-450); RED BLOOD COUNT 3.88 10^6/uL (4.00-5.40); WHITE BLOOD COUNT 10.1 10^3/uL (4.0-10.0)
[2020-01-11 14:22] LABS: AMORPHOUS SEDIMENT SMALL (NEGATIVE); APPEARANCE, URINE HAZY (CLEAR); BACTERIA, URINE AUTO 1+ (NEGATIVE); BILIRUBIN, URINE AUTO NEGATIVE (NEGATIVE); BLOOD, URINE BLOOD NEGATIVE (NEGATIVE); COLOR, URINE YELLOW (YELLOW); GLUCOSE, URINE (UA) AUTO NEGATIVE (NEGATIVE); KETONE, URINE AUTO NEGATIVE (NEGATIVE); LEUKOCYTE ESTERASE, URINE AUTO 3+ (NEGATIVE); MUCUS, URINE SMALL (NEGATIVE); NITRITE, URINE AUTO NEGATIVE (NEGATIVE); PROTEIN, URINE AUTO NEGATIVE (NEGATIVE); RBC, URINE AUTO 11 /HPF (0-3); SPECIFIC GRAVITY URINE AUTO 1.013 (1.002-1.035); SQUAMOUS EPITHELIAL CELL UR AU 6 /HPF (0-6); UROBILINOGEN, URINE AUTO 0.2 mg/dL (0.0-2.0); WBC, URINE AUTO 27 /HPF (0-3)
[2020-01-11 14:31] LABS: HEMOGLOBIN A1c 8.4 %
[2020-01-11 14:52] LABS: CREATININE, URINE 69.3 MG/DL; MALB URINE SIEMENS 24.4 MG/L; MAU/CREAT RATIO 35.2 MCG/MG (0.0-30.0)
== END ==
LOC: M SFHCPLAZ 12:01
PROVIDERS: ATTEND Family Medicine
DX: E11.9 Type 2 diabetes mellitus without complications (principal); D50.9 Iron deficiency anemia, unspecified; E53.8 Deficiency of other specified B group vitamins

== ENCOUNTER → 2020-01-11 | Outpatient (CLI) | payer MEDICARE, OTHER ==
--- NOTE | 2020-01-11 15:25 | REPPI ---
REASON: Shoulder pain. COMPARISON: None. There is moderate hypertrophic degenerative changes seen involving the acromioclavicular joint with osteophytosis and asymmetric narrowing. The glenohumeral relationship is within normal limits. There is no acute fracture, dislocation or subluxation. IMPRESSION: Chronic changes as described above. Electronically Signed by Sameer Ramos DO 01/11/2020 04:18 P
--- NOTE | 2020-01-11 15:29 | REPPI ---
REASON FOR EXAM: Pain. COMPARISON: 05/12/2009 There is no significant change in the appearance of the vertebral body height or alignment. Once again, there is degenerative disc space narrowing seen at C5-6, C6-7, and T7-T1 increased slightly from the prior exam. Flexion and extension is not limited radiographically. Due to the degree of obliquity utilized in obtaining the oblique views, I cannot comment on the intervertebral foramina since they are obscured. Degenerative facet and uncovertebral joint changes are seen mildly at every level, changed little from the prior exam. IMPRESSION: Chronic changes and exam limitations as described above. Electronically Signed by Sameer Ramos DO 01/11/2020 04:18 P
== END ==
LOC: M PLAIMG 12:07
PROVIDERS: ATTEND Family Medicine
DX: M19.011 Primary osteoarthritis, right shoulder (principal); M50.322 Other cervical disc degeneration at C5-C6 level; M50.323 Other cervical disc degeneration at C6-C7 level; M51.34 Other intervertebral disc degeneration, thoracic region; M75.41 Impingement syndrome of right shoulder; E11.9 Type 2 diabetes mellitus without complications; D50.9 Iron deficiency anemia, unspecified; E53.8 Deficiency of other specified B group vitamins
CPT/HCPCS: 36415; 72050; 73030; 81001; 82043; 82728; 83036; 84425; 84630; 84681; 85025; 85046; G0463

== ENCOUNTER → 2020-03-13 | Outpatient (CLI) | payer MEDICARE, OTHER ==
[~2020-03-13] MED LIST changes: +ACET650T61 PO; +AMOX875T2 PO; +ASPI-161 PO; -ASPI81TA85 PO; +ASPI81TA86 PO; +CALC1TAB63 PO; +CEFAD50CA; +CEFD1CAP8 PO; +CEFD300CAP PO; +COLE625T; +COLE625TAB PO; +DOXY100T PO; +PANT40TA29 PO; +TRES100I SC
[2020-05-30 08:59] LABS: GLUCOSE, FASTING SEE SEPARATE REPORT
== END ==
LOC: M LAB 08:40
PROVIDERS: ATTEND Physician Assistant
DX: I50.32 Chronic diastolic (congestive) heart failure (principal); I48.0 Paroxysmal atrial fibrillation; Z79.01 Long term (current) use of anticoagulants

== ENCOUNTER 2020-04-07 10:58 | Emergency (ER) | payer MEDICARE, OTHER ==
[~2020-04-07] VITALS: Ht 167.6 cm; Wt 98.2 kg
[~2020-04-07 10:58] MED LIST changes: -ACET650T61 PO; -AMOX875T2 PO; -ASPI-161 PO; -CALC1TAB63 PO; -CEFAD50CA; -CEFD1CAP8 PO; -CEFD300CAP PO; -COLE625T; -COLE625TAB PO; -DOXY100T PO; -PANT40TA29 PO; -TRES100I SC
[2020-04-07] MEDS ORDERED: CEFAD50CA (11:18)
[2020-04-07] MEDS ORDERED: COLE625T (11:18)
[2020-04-07] MEDS ORDERED: TRES100I SC (11:18)
[2020-04-07] MEDS ORDERED: NS 500 ML IV ONE ×2 (11:45→12:00)
--- NOTE | 2020-04-07 12:20 | REPVR ---
PROCEDURE INFORMATION: Exam: XR Chest, 1 View Exam date and time: 04/07/2020 11:58 AM Age: 69 years old Clinical indication: Other: Weakness; Additional info: Weakness, generalized TECHNIQUE: Imaging protocol: XR of the chest Views: Frontal portable upright view of the chest. COMPARISON: MA Chest, 1 view 07/29/2018 9:53 AM FINDINGS: Tubes, catheters and devices: Bilateral mammary surgical clips. EKG leads are present overlying the chest. Lungs: Increased left basilar pulmonary subsegmental atelectasis. The pulmonary vasculature is stable. The lungs are otherwise peripherally clear bilaterally. Pleural space: No pleural effusion. No pneumothorax. Heart/Mediastinum: Stable. Vasculature: Mild aortic arch atherosclerotic calcification without ectasia. Bones/joints: The patient is status post median sternotomy with intact sternal cerclage wires. IMPRESSION: Increased left basilar pulmonary subsegmental atelectasis. Electronically signed by: Vidal Valdes On 04/07/2020 12:20:17 PM
[2020-04-07 12:28] LABS: BASO % 0.3 % (0.0-1.0); EOS % 0.4 % (0.0-3.0); HEMATOCRIT 34.1 % (36.0-47.0); HEMOGLOBIN 10.7 g/dl (12.0-15.5); LYMPH # 0.8 10^3/uL (1.5-5.0); LYMPH % 7.7 % (24.0-44.0); MEAN CORPUSCULAR HEMOGLOBIN 28.6 pg (27.0-33.0); MEAN CORPUSCULAR HGB CONC 31.4 g/dl (32.0-36.5); MEAN CORPUSCULAR VOLUME 91.2 fl (80.0-96.0); MONO # 0.7 10^3/uL (0.0-0.8); MONO % 7.6 % (0.0-5.0); NEUTROPHILS # 8.1 10^3/uL (1.5-8.5); NEUTROPHILS % 83.5 % (36.0-66.0); PLATELET COUNT, AUTOMATED 161 10^3/uL (150-450); RED BLOOD COUNT 3.74 10^6/uL (4.00-5.40); WHITE BLOOD COUNT 9.7 10^3/uL (4.0-10.0)
[2020-04-07 12:41] LABS: INR 1.83; PROTHROMBIN TIME 21.6 SECONDS (11.8-14.0)
[2020-04-07 12:42] LABS: PARTIAL THROMBOPLASTIN TIME 45.5 SECONDS (25.0-38.4)
[2020-04-07 12:56] LABS: ACETONE/KETONE 1.37 MG/DL (<2.81); BILIRUBIN,DIRECT 0.3 MG/DL (0.0-0.2); BILIRUBIN,TOTAL 0.7 MG/DL (0.2-1.0); TOTAL PROTEIN 6.3 GM/DL (6.4-8.2)
--- NOTE | 2020-04-07 13:19 | REPVR ---
PROCEDURE INFORMATION: Exam: CT Head Without Contrast Exam date and time: 04/07/2020 1:04 PM Age: 69 years old Clinical indication: Dizziness TECHNIQUE: Imaging protocol: Computed tomography of the head without contrast. Radiation optimization: All CT scans at this facility use at least one of these dose optimization techniques: automated exposure control; mA and/or kV adjustment per patient size (includes targeted exams where dose is matched to clinical indication); or iterative reconstruction. COMPARISON: MRI-Brain without Contrast 07/18/2016 1:07 AM FINDINGS: Brain: Normal. No hemorrhage. Unremarkable white matter. No mass effect. Ventricles: No hydrocephalus or evidence of increased intracranial pressure. Bones/joints: Unremarkable. No acute fracture. Sinuses: Visualized sinuses are unremarkable. No fluid levels. Mastoid air cells: Visualized mastoid air cells are well aerated. Orbits: Right prior cataract surgery with lens replacement. Left prior cataract surgery. Vasculature: Atherosclerotic calcifications are present involving the carotid artery siphons and vertebral arteries bilaterally. Soft tissues: Unremarkable. IMPRESSION: No acute intracranial abnormality identified. Electronically signed by: Vidal Valdes On 04/07/2020 13:19:05 PM
[2020-04-07] MEDS ORDERED: cefTRIAXone SOD 1 GM in D5W MINI-BAG PLUS 50 ML IV ONE (15:15)
[2020-04-07 15:43] LABS: VENOUS BASE EXCESS -4.6 (-2.0-2.0); VENOUS HCO3 23.9 MEQ/L (23.0-27.0); VENOUS O2 SATURATION 55.8 % (60.0-80.0); VENOUS PARTIAL PRESSURE CO2 61.3 mmHg (38.0-50.0); VENOUS PARTIAL PRESSURE O2 33.5 mmHg (30.0-50.0); VENOUS PH 7.208 UNITS (7.330-7.430); VENOUS TOTAL CO2 25.7 MEQ/L (24.0-28.0)
[2020-04-07] MEDS ORDERED: IRBESARTAN 150MG TAB PO ONE (16:00)
[2020-04-07] MEDS ORDERED: CEFD300CAP PO (16:06)
[2020-04-07 17:43] VITALS: BP 166/74
--- NOTE | 2020-04-20 14:27 | ECGEPIP ---
[facility] - ED Test Date: 2020-04-07 Pat Name: ELODIA MALDONADO Department: Room: - Gender: Female Captain Room Service: nr : 1950 Requested By: MAXIME FAJARDO PA-C. Order Number: [id number] Reading MD: Alena Singh Measurements Intervals [place] Rate: 68 P: [place]: 0 QRS: 98 QRSD: 149 T: 9 QT: 447 QTc: 477 Interpretive Statements ATRIAL FIBRILLATION WITH ABERRANT CONDUCTION OR VENTRICULAR PREMATURE COMPLEXES RIGHT BUNDLE BRANCH BLOCK ABNORMAL ECG SEE SCANNED DOWNTIME REPORT
== END 2020-04-07 17:45 | disposition home or self-care (01) ==
LOC: M ED 10:58
DX: E86.0 Dehydration (principal); N39.0 Urinary tract infection, site not specified; D64.9 Anemia, unspecified; I48.91 Unspecified atrial fibrillation; R94.31 Abnormal electrocardiogram [ECG] [EKG]; I50.20 Unspecified systolic (congestive) heart failure; E11.9 Type 2 diabetes mellitus without complications; Z79.01 Long term (current) use of anticoagulants; Z79.82 Long term (current) use of aspirin; Z79.4 Long term (current) use of insulin; Z88.2 Allergy status to sulfonamides; Z88.1 Allergy status to other antibiotic agents; Z88.8 Allergy status to other drugs, medicaments and biological substances; Z98.890 Other specified postprocedural states
CPT/HCPCS: 70450; 71045; 80047; 80076; 81001; 82010; 82803; 83605; 85025; 85610; 85730; 87086; 93005; 96361; 96365; 99284; J0696

== ENCOUNTER 2020-04-12 17:35 | Inpatient (IN) | payer MEDICARE, OTHER ==
[~2020-04-12] VITALS: Ht 167.6 cm; Wt 92.0 kg
[~2020-04-12 17:35] MED LIST changes: +CEFAD50CA; +CEFD300CAP PO; +COLE625T; +TRES100I SC
[2020-04-12] MEDS ORDERED: methylPREDNISolone 125MG 2ML VIAL IV ONE (18:15)
[2020-04-12] MEDS ORDERED: COMBIVENT RESPIMAT 100-20MCG INHALER 4GM INH ONE (18:15)
[2020-04-12 18:23] LABS: BASO % 0.4 % (0.0-1.0); EOS # 0.2 10^3/uL (0.0-0.5); HEMOGLOBIN 10.6 g/dl (12.0-15.5); LYMPH # 1.1 10^3/uL (1.5-5.0); LYMPH % 11.2 % (24.0-44.0); MEAN CORPUSCULAR HEMOGLOBIN 28.4 pg (27.0-33.0); MEAN CORPUSCULAR HGB CONC 31.2 g/dl (32.0-36.5); MEAN CORPUSCULAR VOLUME 91.2 fl (80.0-96.0); MONO # 0.6 10^3/uL (0.0-0.8); MONO % 6.5 % (0.0-5.0); NEUTROPHILS # 7.6 10^3/uL (1.5-8.5); NEUTROPHILS % 79.3 % (36.0-66.0); PLATELET COUNT, AUTOMATED 224 10^3/uL (150-450); RED BLOOD COUNT 3.73 10^6/uL (4.00-5.40); WHITE BLOOD COUNT 9.6 10^3/uL (4.0-10.0)
[2020-04-12 18:26] LABS: ABG HCO3 27.8 MEQ/L (22.0-26.0); ABG PARTIAL PRESSURE O2 102.7 mmHg (75.0-100.0); ABG TOTAL CO2 27.8 MEQ/L (23.0-31.0); ABG pH (ARTERIAL) 7.322 UNITS (7.350-7.450)
[2020-04-12 18:27] LABS: ABG O2 SATURATION 97.4 % (95.0-99.0); ABG STANDARD HCO3 25.4 MEQ/L (22.0-26.0)
[2020-04-12 18:33] LABS: INR 1.79; PROTHROMBIN TIME 21.2 SECONDS (11.8-14.0)
[2020-04-12 19:11] LABS: ALBUMIN 2.9 GM/DL (3.2-5.2); BILIRUBIN,DIRECT 0.2 MG/DL (0.0-0.2); BILIRUBIN,TOTAL 0.5 MG/DL (0.2-1.0); CALCIUM LEVEL 8.4 MG/DL (8.8-10.2); CK-MB VALUE MASS 1.3 NG/ML (<3.6); CREATININE FOR GFR 1.54 MG/DL (0.55-1.30); GLOMERULAR FILTRATION RATE 35.7 (>45); MB/CK RELATIVE INDEX 4.06 (< OR =4); POTASSIUM SERUM 3.8 MEQ/L (3.5-5.1); THYROID STIMULATING HORMONE 1.02 uIU/ML (0.358-3.740); TOTAL PROTEIN 6.3 GM/DL (6.4-8.2); TROPONIN I 0.02 NG/ML (< 0.10)
--- NOTE | 2020-04-12 20:01 | REPVR ---
PROCEDURE INFORMATION: Exam: US Duplex Lower Extremity Veins, Bilateral Exam date and time: 04/12/2020 7:39 PM Age: 69 years old Clinical indication: Edema, localized; Lower extremity, bilateral; Additional info: Edema R/O dvt TECHNIQUE: Imaging protocol: Real-time duplex ultrasound of the extremities with 2-D villalpando scale, color Doppler flow and spectral waveform analysis with image documentation. Complete exam focused on the bilateral lower extremity veins. COMPARISON: No relevant prior studies available. FINDINGS: Right deep veins: Unremarkable. The common femoral, femoral and popliteal veins are patent without thrombus. Normal Doppler waveforms. Normal compressibility and/or augmentation response. Right superficial veins: Saphenofemoral junction is patent without thrombus. Left deep veins: Unremarkable. The common femoral, femoral and popliteal veins are patent without thrombus. Normal Doppler waveforms. Normal compressibility and/or augmentation response. Left superficial veins: Saphenofemoral junction is patent without thrombus. Soft tissues: Unremarkable. IMPRESSION: No sonographic evidence of deep vein thrombosis. Electronically signed by: Madan Rowe On 04/12/2020 20:00:49 PM
--- NOTE | 2020-04-12 20:41 | REPVR ---
PROCEDURE INFORMATION: Exam: XR Chest, 2 Views Exam date and time: 04/12/2020 8:26 PM Age: 69 years old Clinical indication: Shortness of breath; Additional info: SOB TECHNIQUE: Imaging protocol: XR of the chest Views: 2 views. COMPARISON: CR PORTABLE CHEST X-RAY 04/07/2020 11:54 AM FINDINGS: Tubes, catheters and devices: Bilateral mammary surgical clips. Lungs: Persistent left lower lobe consolidation. Questionable developing right lower lobe consolidation. Pleural space: Unremarkable. No pleural effusion. No pneumothorax. Heart/Mediastinum: Unremarkable. No cardiomegaly. Bones/joints: No acute osseous abnormality. Osteopenia and mild degenerative changes. IMPRESSION: 1. Persistent left lower lobe consolidation. Questionable developing right lower lobe consolidation. 2. Additional findings, as above. Electronically signed by: Madan Rowe On 04/12/2020 20:40:42 PM
[2020-04-12] MEDS ORDERED: IPRATROPIUM 0.5MG/ALBUTEROL 2.5MG INH SOL UD 3ML (DUONEB) NEB ONE (21:00)
[2020-04-12] MEDS ORDERED: cefTRIAXone SOD 1 GM in D5W MINI-BAG PLUS 50 ML IV ONE (21:00)
[2020-04-12] MEDS ORDERED: AZITHROMYCIN INJ 500 MG, VIAL MATE ADAPTER 1 EACH in D5W 250 ML IV ONE (21:00)
[2020-04-12] MEDS ORDERED: FUROSEMIDE 40MG/4ML VIAL (J1940) IV ONE (21:00)
--- NOTE | 2020-04-12 21:46 | REPVR ---
PROCEDURE INFORMATION: Exam: MR Head Without Contrast Exam date and time: 04/12/2020 9:08 PM Age: 69 years old Clinical indication: Patient HX: Dizziness, unbalanced gait; Additional info: Gait disturbance TECHNIQUE: Imaging protocol: MR of the head without contrast. COMPARISON: CT Head without contrast 04/07/2020 12:59 PM FINDINGS: Brain: Scattered foci of increased T2/FLAIR signal intensity in the periventricular and subcortical white matter, consistent with chronic small vessel ischemic disease. No acute infarct. No hemorrhage. No edema. Ventricles: Prominence of the cortical sulci, cisterns and ventricular system, consistent with cerebral and cerebellar volume loss. Bones/joints: Unremarkable. Sinuses: Normal as visualized. No acute sinusitis. Mastoid air cells: Normal as visualized. No mastoid effusion. Orbits: Unremarkable. Soft tissues: Unremarkable. IMPRESSION: No acute intracranial pathology. Electronically signed by: Madan Rowe On 04/12/2020 21:45:50 PM
--- NOTE | 2020-04-12 21:49 | REPVR ---
PROCEDURE INFORMATION: Exam: MR Angiogram Head Without Contrast, Arteries Exam date and time: 04/12/2020 9:08 PM Age: 69 years old Clinical indication: Dizziness and giddiness; Patient HX: Dizziness, unbalanced gait; Additional info: Gait disturbance TECHNIQUE: Imaging protocol: MR angiogram head without contrast. Exam focused on the arteries. 3D rendering (Not supervised by radiologist): MIP and/or 3D reconstructed images were created by the technologist. COMPARISON: MRA BRAIN W/O CONTRAST 07/18/2016 12:58 AM FINDINGS: ANTERIOR CIRCULATION: Right internal carotid artery: Intracranial segment is patent with no significant stenosis. No aneurysm. Right middle cerebral artery: No occlusion or significant stenosis. No aneurysm. Right anterior cerebral artery: No occlusion or significant stenosis. No aneurysm. Left internal carotid artery: Intracranial segment is patent with no significant stenosis. No aneurysm. Left middle cerebral artery: No occlusion or significant stenosis. No aneurysm. Left anterior cerebral artery: No occlusion or significant stenosis. No aneurysm. POSTERIOR CIRCULATION: Right vertebral artery: No occlusion or significant stenosis. No aneurysm. Left vertebral artery: No occlusion or significant stenosis. No aneurysm. Basilar artery: No occlusion or significant stenosis. No aneurysm. Right posterior cerebral artery: No occlusion or significant stenosis. No aneurysm. Left posterior cerebral artery: No occlusion or significant stenosis. No aneurysm. IMPRESSION: No stenosis or occlusion. Electronically signed by: Madan Rowe On 04/12/2020 21:49:08 PM
[2020-04-12] MEDS ORDERED: ASPIRIN 81 MG CHEW TABLET PO ONE ×2 (22:30)
[2020-04-12] MEDS ORDERED: VITA50005 PO (22:47)
[2020-04-12] MEDS ORDERED: PROAAER10 INH (22:47)
[2020-04-12] MEDS ORDERED: CEFAD50CA PO (22:47)
[2020-04-12] MEDS ORDERED: ASPI-161 PO (22:47)
[2020-04-12] MEDS ORDERED: COLE625TAB PO (22:47)
[2020-04-12] MEDS ORDERED: ACET650T61 PO (22:47)
[2020-04-12] MEDS ORDERED: CEFD1CAP8 PO (22:47)
[2020-04-12] MEDS ORDERED: CALC1TAB63 PO (22:47)
[2020-04-12] MEDS ORDERED: LACTIC ACID 12% LOTION 225 GM BTL TOP PRN (23:00)
[2020-04-12] MEDS ORDERED: ALBUTEROL 90 MCG/ACT 8GM HFA INHALER INH PRN (23:00)
[2020-04-12] MEDS ORDERED: FLUTICASONE PROP 0.05% NASAL SPRAY 16 GM (FLONASE) PRN (23:00)
--- NOTE | 2020-04-12 23:10 | IPNPDOC ---
Text Note Date of Service The patient was seen on 04/12/20. NOTE is a 69 yr old w a hx of HFpEF, COPD, TAVR, DM2 obesity, and Afib who presented w c/o of dizziness, BLE edema and dyspnea w exertion; she will be admitted for evaluation of weakness, LLL PNA, acute COPD and acute CHF. 1 unsteady gait r/o CVA - f/u MRI /PT 2 LLL PNA (ABG shows respiratory acidosis) she was hypoxic on RA - pneumonia order set 3 Acute COPD 2/2 PNA - COPD oder set 4 Acute Diastolic CHF (BNP >8000) - f/u strict Is and Os, daily weights, diuretics, and Echo 5. N Anemia - hold iron while acutely ill / can f/u w PCP to discuss out pt GI referral for C-scope if not already done 6. DM - FSBS, SSI, w hypoglycemia protocol and A1C Rest per H&P VS,Fishbone, I+O VS, Fishbone, I+O Laboratory Tests 04/12/20 18:03 Vital Signs Date Time Temp Pulse Resp B/P (MAP) Pulse Ox O2 Delivery O2 Flow Rate FiO2 04/12/20 20:15 72 19 173/73 (106) 97 Nasal Cannula 2.0 04/12/20 17:37 96.7 JOELLE HERNANDEZ MD Apr 12, 2020 23:10
[2020-04-12] MEDS ORDERED: GLUCOSE 4GM CHEW TABLET PO PRN (23:15)
[2020-04-12] MEDS ORDERED: DEXTROSE 50% 50 ML SYRINGE IV PRN (23:15)
[2020-04-12] MEDS ORDERED: BRINZOLAMIDE 1 % OPHTH SUSP (AZOPT) 10ML OU SCH (23:15)
[2020-04-12] MEDS ORDERED: ALBUTEROL 90 MCG/ACT 8GM HFA INHALER INH SCH (23:15)
[2020-04-12] MEDS ORDERED: GLUCAGON INJ 1MG VIAL SC PRN (23:15)
[2020-04-12] MEDS ORDERED: ALBUTEROL SULFATE 2.5 MG/0.5 ML INH NEB SOLN NEB PRN (23:15)
[2020-04-12] MEDS ORDERED: APIXABAN 5 MG TAB (ELIQUIS) PO SCH (23:15)
[2020-04-12 23:40] LABS: MAGNESIUM LEVEL 2.1 MG/DL (1.8-2.4); PHOSPHORUS LEVEL 3.3 MG/DL (2.5-4.9)
--- NOTE | 2020-04-12 23:58 | HPEPDOC ---
General Date of Admission Apr 12, 2020 at 21:20 Date of Service: Apr 12, 2020 Chief Complaint dizziness Source: Patient Exam Limitations: No limitations Timing/Duration: Day(s) (5) Severity: Moderate Associated Symptoms: Loss of appetite, Weakness, Dizziness History of Present Illness Patient is a 69 yo plesant lady with hx of CHF, left atrial left atrial appendage, HTN, IDDM, severe aortic stenosis s/p aortic valve replacement in 2010 presented to [facility] due to reported dizzy spells since last Friday with worsening exertional dyspnea. She reported since last Friday, she started to have dizzy spells and reported she drifted to the right and her knees gave out on her with no particular pattern that she can see yet as it has only been about a week; she noticed it when she was walking, got out of the car, and when she was looking at moving objects. She reported last Friday when she getting out of the car she felt dizzy and her caught her so she was lowered to the ground, denies any syncope. She reported visual hallucination including such as seeing a dog and she said sh jagdeep knows the hallucinations are not real. Denies any hearing changes, tinnitus, or headache. When being asked about the duration of the dizzy spells, she said she felt the dizzy spells lasted the whole day. She reported worsening exertional dyspnea since last Friday making her only able to walk one block without being stopped by shortness of breath compared to being able to walk 3 blocks at baseline. She denies cough but has some wheezing for 1 day. Denies any fever, chills, nausea, or vomiting. She has decreased appetite; said she is on about 46 oz fluid restriction without salt restriction daily; reported she felt she gained some weight; reported increasing b/l LE edema. She follows Cardiology with Dr. Thompson's office with last visit reported to be about a week and half ago. Home Medications Scheduled Acetaminophen (Tylenol Arthritis) 650 Mg Tablet.er, 1,300 MG PO BID, (Reported) Amoxicillin/Potassium Clav (Amox-Clav 875-125 mg Tablet) 1 Each Tablet, 875 MG PO BID Apixaban (Eliquis) 5 Mg Tab, 5 MG PO BID, (Reported) Ascorbic Acid (Vitamin C) 500 Mg Tab, 500 MG PO QHS, (Reported) Aspirin (Aspirin EC) 81 Mg Tablet.dr, 81 MG PO DAILY, (Reported) Bisoprolol Fumarate (Bisoprolol Fumarate) 5 Mg Tab, 5 MG PO DAILY, (Reported) Brinzolamide/Brimonidine Tart (Simbrinza 1%-0.2% Eye Drops) 1 Shaniqua Shaniqua, 1 DROP OU BID, (Reported) Calcium Carbonate/Vitamin D3 (Calcium 600-Vit D3 400 Tablet) 1 Each Tablet, 1 TAB PO DAILY, (Reported) Colesevelam Hydrochloride (Welchol) 625 Mg Tablet, 625 MG PO BID, (Reported) Diltiazem HCl (Diltiazem HCl) 30 Mg Tab, 30 MG PO BID, (Reported) Doxycycline Hyclate (Doxycycline Hyclate) 100 Mg Tablet, 100 MG PO BID Ergocalciferol (Vitamin D2) (Vitamin D2) 50,000 Units Cap, 50,000 UNITS PO 1XWK, (Reported) FRIDAY EVENING Ferrous Sulfate (Ferrous Sulfate) 325 Mg Tab, 650 MG PO Q2D, (Reported) Gabapentin (Neurontin) 300 Mg Cap, 300 MG PO BID, (Reported) Gentamicin Sulfate (Gentamicin Sulfate) 0.1 % Cre, 1 DOSE TOP DAILY, (Reported) APPLY TO ULCER ON TOE (RIGHT FOOT) Insulin Aspart (Novolog Flexpen) 100 Unit/Ml Inj, 1 DOSE SC AC, (Reported) PER SLIDING SCALE Insulin Degludec (Tresiba) 100 Unit/1 Ml Vial, 16 UNIT SC QHS, (Reported) Irbesartan (Irbesartan) 75 Mg Tab, 75 MG PO DAILY, (Reported) Metoclopramide Hcl (Reglan) 5 Mg Tab, 5 MG PO ACHS, (Reported) Netarsudil Mesylate (Rhopressa) 0.02 % Imelda, 1 DROP OU QHS, (Reported) Pantoprazole Sodium (Pantoprazole Sodium) 40 Mg Tablet.dr, 40 MG PO DAILY Potassium Chloride (Klor-Con M10) 10 Meq Tabcr, 10 MEQ PO DAILY, (Reported) Rosuvastatin Calcium (Crestor) 20 Mg Tab, 20 MG PO DAILY, (Reported) Spironolactone (Spironolactone) 25 Mg Tab, 25 MG PO DAILY, (Reported) Sucralfate (Sucralfate) 1 Gm Tab, 1 GM PO WMHS, (Reported) Torsemide (Torsemide) 10 Mg Tab, 20 MG PO BID, (Reported) Scheduled PRN Albuterol Sulfate (Proair Hfa) 8.5 Gm Hfa.aer.ad, 2 PUFF INH QID PRN for SHORTNESS OF BREATH, (Reported) Ammonium Lactate (Ammonium Lactate) 12 % Cre, 1 DOSE TOP BID PRN for DRY SKIN, (Reported) APPLY TO FEET Mometasone Furoate Monohydrate (Nasonex) 120 Largo/17 Gm Naspr, 1 SPRAY NA DAILY PRN for NASAL CONGESTION, (Reported) Allergies Coded Allergies: Sulfa (Sulfonamide Antibiotics) (Verified Allergy, Severe, anaphylaxis, rash, 04/30/19) neomycin (Verified Allergy, Intermediate, rash, 04/30/19) ramipril (Verified Adverse Reaction, Intermediate, cough, 04/30/19) Past Medical History Medical History CHF, last echo reported to be done last year at cardiology office, hx of diastolic dysfunction noted per record Anemia GERD/hiatal hernia Obesity s/p Danielle-En-Y Atrial Fibrillation on eliquis Hypertension Type 2 diabetes, IDDM duodenal ulcer/gastric pouch ulceration/hx of upper GI bleed Esophagitis metaplasia, mild Sinusitism chronic Alergic rhinitis Dyslipidemia COPD DAVIDSON Diabetic retinopathy status post laser eye surgery History of breast cancer status post mastectomy Moderate atheroma in distal aortic aarch and descending thorac aorta Tubular adenoma in colon Lumbar spondylosis Surgical History Hysterectomy/JENNIFER BSO for noncancerous reasons Gastric bypass in 2006 Bladder elevation in Left breast US guided biopsy 01/20/2015 Left breast lumpectomy 03/2015 Bilateral mastectomy Aortic Valve replacement with bioprosthetic valve in 2010 Cholecystectomy in 07/2018 Social History * Smoker: Denies lives at home with A-FIB/CHADSVASC A-FIB History Current/History of A-Fib/PAF?: Yes Current PO Anticoag Therapy: Yes Age/Risk Factor Scoring CHADSVASC: CHADSVASC Response (Comments) Value Age Risk Factor Age 65-74 years old 1 Gender Risk Factor Female 1 Hx of CHF Yes 1 Hx of HTN Yes 1 Hx of Diabetes Yes 1 Total 5 Review of Systems Constitutional: Reports: Weakness, Other; Denies: Chills, Fever, Weight Loss (weight gain) Eyes: Reports: Vision change (chronic vision changes on left eye) Pulmonary: Reports: Dyspnea, Other Symptoms (wheezing); Denies: Cough Cardiovascular: Reports: Edema; Denies: Chest Pain, Palpitations Gastrointestinal: Denies: Nausea, Vomiting Musculoskeletal: Denies: Leg Pain Neurological: Reports: Weakness, Incoordination Physical Examination General Exam: Positive: Alert, Cooperative, No Acute Distress Eye Exam: Positive: Conjunctiva & lids normal, EOMI, Other Eye Symptoms (Bilateral pupil equal and round); Negative: Sclera icteric ENT Exam: Positive: Atraumatic, Mucous membr. moist/pink, Pharynx Normal, Tongue Midline, Nares Patent Neck Exam: Positive: Supple Chest Exam: Positive: Normal air movement, Diminished; Negative: Rales, Rhonchi, Wheezing Heart Exam: Positive: Rate Normal, Regular Rhythm, Normal S1, Normal S2; Negative: Murmurs Abdomen Exam: Positive: Normal bowel sounds, Soft Extremity Exam: Positive: Edema (+3-4 in b/l lower extremity) Skin Exam: Positive: Other skin issue (Hyperpigmentation in right lower extremity appears to be chronic); Negative: Breakdown Neuro Exam: Positive: Normal Speech, Strength at 5/5 X4 ext, Normal Tone, Other (CN2-12 grossly intact except for CN7, possible left mouth corner droop when smiling) Psych Exam: Positive: Mental status NL, Mood NL, Memory Intact Vital Signs Vital Signs Date Time Temp Pulse Resp B/P (MAP) Pulse Ox O2 Delivery O2 Flow Rate FiO2 04/12/20 20:15 72 19 173/73 (106) 97 Nasal Cannula 2.0 04/12/20 17:37 96.7 Laboratory Data Labs 24H Laboratory Tests 2 04/12/20 18:03: Immature Granulocyte % (Auto) 0.6, Neutrophils (%) (Auto) 79.3H, Lymphocytes (%) (Auto) 11.2L, Monocytes (%) (Auto) 6.5H, Eosinophils (%) (Auto) 2.0, Basophils (%) (Auto) 0.4, Neutrophils # (Auto) 7.6, Lymphocytes # (Auto) 1.1L, Monocytes # (Auto) 0.6, Eosinophils # (Auto) 0.2, Basophils # (Auto) 0.0, Nucleated Red Blood Cells % (auto) 0.2H, Prothrombin Time 21.2H, Prothromb Time International Ratio 1.79, Anion Gap 5L, Glomerular Filtration Rate 35.7L, Calcium Level 8.4L, Phosphorus Level 3.3, Magnesium Level 2.1, Total Bilirubin 0.5, Direct Bilirubin 0.2, Aspartate Amino Transf (AST/SGOT) 19, Alanine Aminotransferase (ALT/SGPT) 26, Alkaline Phosphatase 120H, Total Creatine Kinase 32, Creatine Kinase MB 1.3, Creatine Kinase MB Relative Index 4.06H, Troponin I 0.02, UC-Mlw-O-Type Natriuretic Peptide 8565H, Total Protein 6.3L, Albumin 2.9L, Albumin/Globulin Ratio 0.9L, Thyroid Stimulating Hormone (TSH) 1.020 04/12/20 18:11: Blood Gas Bicarbonate Standard 25.4, Arterial Blood pH 7.322L, Arterial Blood Partial Pressure CO2 55.0H, Arterial Blood Partial Pressure O2 102.7H, Arterial Blood Total CO2 27.8, Arterial Blood HCO3 27.8H, Arterial Blood Base Excess 1.0, Arterial Blood Oxygen Saturation 97.4, Arterial Blood Gas Puncture Site UNKNOWN CBC/BMP Laboratory Tests 04/12/20 18:03 Microbiology Microbiology 04/12/20 Blood Culture, Received Pending 04/12/20 Blood Culture, Received Pending 04/12/20 Respiratory Virus Panel (PCR) (ZANE) - Final, Complete Assessment/Plan 1. Pre-syncope likely 2/2 cardiac etiology vs anemia vs vasovagal vs retained CO2. Patient also reported unsteady gait with imbalance with which she drifted to the right;visual hallucination which patient reported she knows it's not re al. Echo, carotid US, orthostatic vitals, tele monitoring. R/o TIA: MRI/MRA/CT head showed no acute abnormalities, aspirin total 324mg on 04/12/2020 given, continue home statin. PT/OT/neuro checks/ fall precaution. Pt on respiratory tx, s/p IV methylprednisolone, on PO prednisone. Repeat ABG in AM. Hold home med gabapentin with seizure precaution 2. Bilateral lower lobe pneumonia, community acquired. CXR report showed persistent LLL consolidation with questionable developing RLL consolidation.Sta rt IV abx with Ceftriaxone and Azithromycin. Blood cx and sputum cx. Oyxgen therapy PRN 3. Bilateral lower extremity edema 2/2 CHF exacerbation. Pro-BNP elevated at 8565. PMH of CHF per record. Pt will be on 2L fluid restriction, cont home med spironolactone, hold home med Torsemide and start IV lasix 40mg Q4H. I&O, daily weights. Echo in AM for pre-syncope. TEDS 4. Hyperlipidemia. Cont home med Crestor. 5. Anemia, normocytic. Hg=10.6. F/u with CBC. Iron studies consistent with anemia of chronic disease. B12 and folic acid level ordered. Cont home med ferrous sulfate. Consider occult blood with hx of peptic ulcer 6. A. fib. Cont home med Eliquis. Cont home med Diltiazem and bisoprolol with holding parameters. 7. COPD exacerbation with hypercapnia. Reported worsening dyspnea on exertion since last Friday. No accessory muscle use/labored breathing on exam. Respiratory tx. S/p IV methylprednisolone in ER. Start PO prednisone 40mg QD. Repeat ABG in AM. 8. Type 2 DM, IDDM. Hold home med Tresiba for now as patient reported decreased appetite. Insulin SS ACHS with glucose checks ACHS. Hypoglycemia protocol. 9. CHF, hx of diastolic dysfunction per clinic record. Pro-BNP elevated at 8565. PMH of CHF per record. Pt will be on 2L fluid restriction, cont home med spironolactone, hold home med Torsemide and start IV lasix 40mg Q4H. I&O, daily weights. Echo in AM for pre-syncope. 10. GERD. Cont home med Sucralfate. Pt home med Dexilant not on formulary, replace with protonix. 11. Hypertension. Cont home med Bisoprolol and spironolactone. Pt on IV lasix now for b/l LE edema/CHF exacerbation Hold home med Irbesartan d/t LEON 12. Dyslipidemia. Cont home med Crestor. 13. LEON likely 2/2 cardiorenal syndrome. 08/2018 GFR>60. Pt on IV lasix and spironolactone. I&O, daily weights. Cont to trend BMP 14. DAVIDSON. Pt uses BIPAP at home. Use tabletop BIPAP for now with home setting with order placed. May use home BIPAP when pt's brings home BIPAP over. Plan / VTE VTE Prophylaxis Ordered?: Yes (on eliquis at home) GME ATTESTATION GME ATTESTATION My faculty preceptor for this patient encounter was physically present during the encounter and was fully available. All aspects of the patient interview, examination, medical decision making process, and medical care plan development were reviewed and approved by the faculty preceptor. The faculty preceptor is aware and concurs with the plan as stated in the body of this note and will attest to such by his/her cosignature. ATTENDING NOTE I independently examined the patient and agree with the H/P with the exceptions and additions in my addendum from 04/12/20 ALFREDO TOMAS DO Apr 12, 2020 23:58 JOELLE HERNANDEZ MD Apr 18, 2020 03:17
[2020-04-13 00:19] LABS: PERCENT SATURATION 11.7 % (13.2-45.0)
[2020-04-13] MEDS: ASCORBIC ACID 500 MG TAB PO SCH ×2 (01:32→21:02)
[2020-04-13] MEDS: APIXABAN 5 MG TAB (ELIQUIS) PO SCH ×3 (01:32→21:02)
[2020-04-13] MEDS: COLESEVELAM 625 MG TAB (WELCHOL) PO SCH ×3 (01:33→21:01)
[2020-04-13] MEDS: HumaLOG INSULIN (NovoLOG) PER UNIT SC SCH ×5 (01:35→21:02)
[2020-04-13] MEDS: FUROSEMIDE 40MG/4ML VIAL (J1940) IV SCH ×6 (01:40→20:42)
[2020-04-13] MEDS: IPRATROPIUM 0.5MG/ALBUTEROL 2.5MG INH SOL UD 3ML (DUONEB) NEB SCH ×4 (02:17→18:46)
[2020-04-13 07:34] LABS: HEMATOCRIT 33.5 % (36.0-47.0); HEMOGLOBIN 10.3 g/dl (12.0-15.5); MEAN CORPUSCULAR HEMOGLOBIN 27.9 pg (27.0-33.0); MEAN CORPUSCULAR HGB CONC 30.7 g/dl (32.0-36.5); MEAN CORPUSCULAR VOLUME 90.8 fl (80.0-96.0); PLATELET COUNT, AUTOMATED 196 10^3/uL (150-450); RED BLOOD COUNT 3.69 10^6/uL (4.00-5.40); WHITE BLOOD COUNT 9.3 10^3/uL (4.0-10.0)
[2020-04-13 07:41] LABS: HEMATOCRIT 33.5 % (36.0-47.0)
[2020-04-13 08:10] LABS: CALCIUM LEVEL 8.6 MG/DL (8.8-10.2); CREATININE FOR GFR 1.49 MG/DL (0.55-1.30); POTASSIUM SERUM 3.9 MEQ/L (3.5-5.1)
[2020-04-13] MEDS: bisoproloL fumarate 5 MG TAB PO SCH (08:18)
[2020-04-13] MEDS: ROSUVASTATIN 10 MG TAB (CRESTOR) PO SCH (08:18)
[2020-04-13] MEDS: SUCRALFATE 1 GM TAB PO SCH ×4 (08:18→21:02)
[2020-04-13] MEDS: PANTOPRAZOLE 40MG TAB (PROTONIX) PO SCH (08:19)
[2020-04-13] MEDS: predniSONE 20 MG TAB PO SCH (08:19)
[2020-04-13] MEDS: POTASSIUM CHLORIDE 10 MEQ SR TABLET PO SCH (08:29)
[2020-04-13] MEDS: SPIRONOLACTONE 25 MG TAB PO SCH (09:00)
[2020-04-13] MEDS ORDERED: bisoproloL fumarate 5 MG TAB PO SCH (09:00)
[2020-04-13] MEDS ORDERED: BRIMONIDINE 0.15% OPHTH SOLN 5 ML OU SCH (09:00)
[2020-04-13] MEDS ORDERED: ENTER DRUG NAME HERE (PATIENT'S OWN MED) OU SCH ×2 (09:00→21:00)
[2020-04-13] MEDS ORDERED: COLESEVELAM 625 MG TAB (WELCHOL) PO SCH (09:00)
[2020-04-13] MEDS ORDERED: IRBESARTAN 150MG TAB PO SCH (09:00)
[2020-04-13] MEDS ORDERED: OMEPRAZOLE 20 MG CAP PO SCH (09:00)
[2020-04-13] MEDS ORDERED: BRINZOLAMIDE 1 % OPHTH SUSP (AZOPT) 10ML OU SCH (09:00)
[2020-04-13 10:27] LABS: HEMOGLOBIN A1c 6.5 %
[2020-04-13] MEDS: CALCIUM/VITAMIN D 500 MG TAB PO SCH (10:30)
--- NOTE | 2020-04-13 12:09 | IPNPDOC ---
Subjective Date Seen The patient was seen on 04/13/20. Subjective Chief Complaint/HPI pt has improved respiratory symptoms, decreased wheezing General: Denies: ROS Unobtainable, Chills, Night Sweats, Fatigue, Malaise, Normal Appetite, Other Symptoms Constitutional: Denies: Chills, Fever, Malaise, Night Sweats, Weakness, Fatigue, Weight Loss, Lethargy, Other Eyes: Denies: Pain, Vision change, Conjunctivae inflammation, Eyelid inflammation, Redness, Other Pulmonary: Reports: Dyspnea; Denies: Cough, Pleuritic Chest Pain, Other Symptoms Cardiovascular: Denies: Chest Pain, Palpitations, Orthopnea, Paroxysmal Noc. Dyspnea, Edema, Lt Headedness, Other Symptoms Gastrointestinal: Denies: Nausea, Vomiting, Abdominal Pain, Diarrhea, Constipation, Melena, Hematochezia, Other Symptoms Genitourinary: Denies: Dysuria, Frequency, Incontinence, Hematuria, Retention, Other Symptoms Hematologic: Denies: Bruising, Bleeding Excessively, Petecchia, Purpura, Enla rged Lymph Nodes, Other Hematologic Endocrine: Denies: Polydipsia, Polyphagia, Polyuria, Heat Intolerance, Cold Intolerance, Other Endocrine Sx Musculoskeletal: Denies: Neck Pain, Back Pain, Shoulder Pain, Arm Pain, Hand Pain, Leg Pain, Foot Pain, Joint Pain, Muscle Pain, Spasms, Other Symptoms Neurological: Denies: Weakness, Numbness, Incoordination, Change in speech, Confusion, Seizures, Other Symptoms Psych: Denies: Mood Normal, Anxiety, Depression, Memory Issues, Thoughts of Self Harm, Anger, Thoughts of Harming Other, Other Psych Objective Physical Examination Neck Exam: Positive: Supple Chest Exam: Positive: Diminished, Other (miminal crackles and brochial sounds bilat) Heart Exam: Positive: Rate Normal, Regular Rhythm, Normal S1, Normal S2 Abdomen Exam: Positive: Normal bowel sounds, Soft Extremity Exam: Positive: Edema (+3-4 in b/l lower extremity) Skin Exam: Positive: Other skin issue (Hyperpigmentation in right lower extremity appears to be chronic) Assessment /Plan Problems (1) COPD (chronic obstructive pulmonary disease) Problem Text: is a 69 yr old w a hx of HFpEF, COPD, TAVR, DM2 obesity, and Afib who presented w c/o of dizziness, BLE edema and dyspnea w exertion; she will be admitted for evaluation of weakness, LLL PNA, acute COPD and acute CHF. pt was started onPo prednisone and Duoneb and Proventil nebs Pt seems to be improving very well continue present care and O2 support (2) Pneumonia Status: Acute Problem Text: LLL PNA (ABG shows respiratory acidosis) she was hypoxic on RA - Continue IV Rocephin and zithromax O2 support OOB as tolerated CBC,BMP in am (3) Diabetes mellitus Status: Chronic Problem Text: FSBS q ac and HS continue home meds (4) Diastolic congestive heart failure Status: Chronic Problem Text: Acute Diastolic CHF (BNP >8000) f/u strict I/O, daily weights, diuretics, and Echo ordered (5) Anemia Status: Chronic Problem Text: Anemia - hold iron while acutely ill / can f/u w PCP to discuss out pt GI referral for C-scope if not already done Follow CBC in am (6) Atrial fibrillation Status: Chronic Problem Text: VR under control Tele monitoring continue home meds (Eliquis, bisoprolol and diltiazem) (7) Edema, peripheral Status: Chronic Problem Text: Bilateral lower extremity edema 2/2 CHF exacerbation. Pro-BNP elevated at 8565. PMH of CHF per record. Pt will be on 2L fluid restriction, cont home med spironolactone, hold home med Torsemide and start IV lasix 40mg Q4H. I&O, daily weights. Echo in AM,TEDS (8) Physical deconditioning Status: Acute Problem Text: PT eval Possible transfer to Rehab once clinically stable Plan/VTE VTE Prophylaxis Ordered?: Yes VS, I&O, [facility]H, [facility] Vital Signs/I&O Vital Signs Date Time Temp Pulse Resp B/P (MAP) Pulse Ox O2 Delivery O2 Flow Rate FiO2 04/13/20 08:18 76 154/100 04/12/20 20:15 19 97 Nasal Cannula 2.0 04/12/20 17:37 96.7 I&O- Last 24 Hours up to 6 AM 04/13/20 06:00 Intake Total 305 ml Balance 305 ml Laboratory Data 24H LABS Laboratory Tests 2 04/12/20 18:03: Immature Granulocyte % (Auto) 0.6, Neutrophils (%) (Auto) 79.3H, Lymphocytes (%) (Auto) 11.2L, Monocytes (%) (Auto) 6.5H, Eosinophils (%) (Auto) 2.0, Basophils (%) (Auto) 0.4, Neutrophils # (Auto) 7.6, Lymphocytes # (Auto) 1.1L, Monocytes # (Auto) 0.6, Eosinophils # (Auto) 0.2, Basophils # (Auto) 0.0, Nucleated Red Blood Cells % (auto) 0.2H, Prothrombin Time 21.2H, Prothromb Time International Ratio 1.79, Anion Gap 5L, Glomerular Filtration Rate 35.7L, Calcium Level 8.4L, Phosphorus Level 3.3, Magnesium Level 2.1, Iron Level 37L, Total Iron Binding Capacity 317, Transferrin % Saturation 11.7L, Ferritin 110, Total Bilirubin 0.5, Direct Bilirubin 0.2, Aspartate Amino Transf (AST/SGOT) 19, Alanine Aminotransferase (ALT/SGPT) 26, Alkaline Phosphatase 120H, Total Creatine Kinase 32, Creatine Kinase MB 1.3, Creatine Kinase MB Relative Index 4.06H, Troponin I 0.02, YE-Eff-E-Type Natriuretic Peptide 8565H, Total Protein 6.3L, Albumin 2.9L, Albumin/Globulin Ratio 0.9L, Thyroid Stimulating Hormone (TSH) 1.020 04/12/20 18:11: Blood Gas Bicarbonate Standard 25.4, Arterial Blood pH 7.322L, Arterial Blood Partial Pressure CO2 55.0H, Arterial Blood Partial Pressure O2 102.7H, Arterial Blood Total CO2 27.8, Arterial Blood HCO3 27.8H, Arterial Blood Base Excess 1.0, Arterial Blood Oxygen Saturation 97.4, Arterial Blood Gas Puncture Site UNKNOWN 04/13/20 07:07: Nucleated Red Blood Cells % (auto) 0.0, Anion Gap 6L, Glomerular Filtration Rate 37.0L, Calcium Level 8.6L, Estimated Mean Plasma Glucose 140H, Hemoglobin A1c 6.5, Vitamin B12 Level 401 CBC/BMP Laboratory Tests 04/12/20 18:03 04/13/20 07:07 Microbiology Microbiology 04/12/20 Blood Culture, Received Pending 04/12/20 Blood Culture, Received Pending 04/12/20 Respiratory Virus Panel (PCR) ([facility]) - Final, Complete PATTY LERMA MD Apr 13, 2020 12:09
--- NOTE | 2020-04-13 12:52 | REPVR ---
PROCEDURE INFORMATION: Exam: US Duplex Bilateral Extracranial Arteries Exam date and time: 04/13/2020 12:28 PM Age: 69 years old Clinical indication: Dizziness and syncope and collapse; Additional info: Presyncope TECHNIQUE: Imaging protocol: Real-time Duplex ultrasound scan of the bilateral carotid and vertebral arteries combining villalpando scale, color Doppler and spectral waveform analysis. Bilateral exam. COMPARISON: None provided. FINDINGS: There is plaque involving the carotid bifurcations bilaterally. Nodules are incidentally noted in the right lobe of the thyroid, largest measuring 3.3 x 2.6 x 2.2 cm. Vertebral artery flow is antegrade bilaterally. The following peak velocities were obtained (Systolic (Diastolic) in cm/sec) Right CCA: 80 Right ICA: Proximal 307 (83), Mid 293 (36), Distal 123 (31) Right ECA: 164 Left CCA: 85 Left ICA: Proximal 176 (25), Mid 164 (35), Distal 132 (31) Left ECA: 185 Peak ICA/CCA ratios: Right: 3.83 Left: 2.07 IMPRESSION: 1. There is plaque with Doppler evidence of at least 70% carotid artery stenosis on the right. This is on the basis of peak internal carotid artery systolic velocity. 2. There is plaque with Doppler evidence of 50-69% carotid artery stenosis on the left. This is on the basis of peak internal carotid artery systolic velocity. 3. Antegrade vertebral artery flow bilaterally. 4. Incidentally noted right thyroid nodules measuring up to 3.3 cm. Recommend dedicated evaluation. REFERENCES: SRU CRITERIA. The degree of internal carotid artery stenosis is based on criteria defined by the Society of Radiologists in Ultrasound (SRU). Normal is no stenosis. Mild is less than 50% stenosis. Moderate is 50-69% stenosis. Severe is greater than 69% stenosis to near occlusion. Near occlusion is a markedly narrowed lumen. Total occlusion is no detectable patent lumen. Electronically signed by: Madan Davidson On 04/13/2020 12:52:18 PM
[2020-04-13 15:32] VITALS: BP 142/54
[2020-04-13 20:37] VITALS: BP 142/59
[2020-04-13] MEDS ORDERED: cefTRIAXone SOD 1 GM in D5W MINI-BAG PLUS 50 ML IV SCH ×2 (21:00→22:00)
[2020-04-13 22:00] VITALS: BP 142/59
[2020-04-13] MEDS ORDERED: AZITHROMYCIN INJ 500 MG, VIAL MATE ADAPTER 1 EACH in D5W 250 ML IV SCH ×2 (22:00)
[2020-04-14] MEDS: FUROSEMIDE 40MG/4ML VIAL (J1940) IV SCH ×6 (00:01→20:56)
[2020-04-14 06:00] VITALS: BP 147/67
[2020-04-14 07:14] LABS: HEMATOCRIT 30.7 % (36.0-47.0); HEMOGLOBIN 9.7 g/dl (12.0-15.5); MEAN CORPUSCULAR HEMOGLOBIN 28.3 pg (27.0-33.0); MEAN CORPUSCULAR HGB CONC 31.6 g/dl (32.0-36.5); MEAN CORPUSCULAR VOLUME 89.5 fl (80.0-96.0); PLATELET COUNT, AUTOMATED 225 10^3/uL (150-450); RED BLOOD COUNT 3.43 10^6/uL (4.00-5.40); WHITE BLOOD COUNT 13.1 10^3/uL (4.0-10.0)
[2020-04-14 07:38] LABS: CALCIUM LEVEL 8.7 MG/DL (8.8-10.2); CREATININE FOR GFR 1.69 MG/DL (0.55-1.30); POTASSIUM SERUM 3.9 MEQ/L (3.5-5.1)
[2020-04-14] MEDS: IPRATROPIUM 0.5MG/ALBUTEROL 2.5MG INH SOL UD 3ML (DUONEB) NEB SCH ×3 (07:38→19:45)
[2020-04-14] MEDS: HumaLOG INSULIN (NovoLOG) PER UNIT SC SCH ×4 (08:30→20:57)
[2020-04-14] MEDS: POTASSIUM CHLORIDE 10 MEQ SR TABLET PO SCH (08:33)
[2020-04-14] MEDS: PANTOPRAZOLE 40MG TAB (PROTONIX) PO SCH (08:33)
[2020-04-14] MEDS: predniSONE 20 MG TAB PO SCH (08:33)
[2020-04-14] MEDS: ROSUVASTATIN 10 MG TAB (CRESTOR) PO SCH (08:33)
[2020-04-14] MEDS: SUCRALFATE 1 GM TAB PO SCH ×4 (08:33→20:56)
[2020-04-14] MEDS: COLESEVELAM 625 MG TAB (WELCHOL) PO SCH ×2 (08:33→20:56)
[2020-04-14] MEDS: bisoproloL fumarate 5 MG TAB PO SCH (08:35)
[2020-04-14] MEDS: APIXABAN 5 MG TAB (ELIQUIS) PO SCH ×2 (08:35→20:56)
[2020-04-14] MEDS: CALCIUM/VITAMIN D 500 MG TAB PO SCH (08:35)
[2020-04-14] MEDS: SPIRONOLACTONE 25 MG TAB PO SCH (08:39)
[2020-04-14] MEDS ORDERED: PREVNAR 13 VACCINE SYRINGE IM ONE (09:00)
[2020-04-14] MEDS ORDERED: FLUBLOK(EGG FREE)(QUAD)INFLUENZA VACC 0.5ML SYRINGE 18YRS & OLDER IM ONE (09:00)
[2020-04-14] MEDS ORDERED: FERROUS SULFATE 325MG TAB PO SCH (09:00)
[2020-04-14 09:52] VITALS: BP 134/56
[2020-04-14 11:05] VITALS: BP_SYST 122; BP_SYST 125; BP_SYST 131; BP_DIAS 55; BP_DIAS 57
[2020-04-14 14:00] VITALS: BP 123/50
--- NOTE | 2020-04-14 17:32 | IPNPDOC ---
Text Note Date of Service The patient was seen on 04/14/20. NOTE Subjective: Pt developed 17 beats of Vtach, no chest pain or palpations. Denies fever, chills, SOB, diarrhea or dysuria Physical Examination General Exam:Alert, Cooperative, No Acute Distress ENT Exam: Atraumatic, Mucous membr. moist/pink, Pharynx Normal, Tongue Midline, Nares Patent Neck Exam: Supple Chest Exam: Diminished lungs sound Heart Exam: S1, S2, irregularly irregular Abdomen Exam: Normal bowel sounds, Soft Extremity Exam: Edema +2 of LE bl Skin Exam: Hyperpigmentation in right lower extremity appears to be chronic Neuro Exam: CN2-12 grossly intact except for CN7, possible left mouth corner droop when smiling) Psych Exam: Mental status NL, Mood NL, Memory Intact A/P Pt is a 69 yr old w a hx of HFpEF, COPD, TAVR, DM2 obesity, and Afib who presented w c/o of dizziness, BLE edema and dyspnea w exertion; she admitted for evaluation of weakness, LLL PNA, acute COPD and acute CHF (1) COPD (chronic obstructive pulmonary disease) c/w inhalers (2) Pneumonia LLL PNA (ABG shows respiratory acidosis) she was hypoxic on RA Pt is on Ra with oxy wnl Started PO abs (3) Diabetes mellitus BG is under control continue home meds (4) Diastolic congestive heart failure Acute Diastolic CHF (BNP >8000) f/u strict I/O, daily weights, diuretics, and Echo pending (5) Anemia normocytic anemia Hb stable will check stool for occult blood GI work up in the outpt settings (6) Atrial fibrillation HR under control Tele monitoring continue Eliquis (7) Edema, peripheral Bilateral lower extremity edema 2/2 CHF exacerbation. Pro-BNP elevated at 8565. PMH of CHF per record. Pt will be on 2L fluid restriction, cont home med c/w IV Lasix (8) Physical deconditioning PT eval Possible transfer to Rehab once clinically stable Vtach nonsustained Will check Mag EKG showed QTc prolongation. Dc Azithromycin VS,Fishbone, I+O VS, Fishbone, I+O Laboratory Tests 04/14/20 06:52 Vital Signs Date Time Temp Pulse Resp B/P (MAP) Pulse Ox O2 Delivery O2 Flow Rate FiO2 04/14/20 11:05 53 131/55 (80) 56 122/57 (78) 61 125/57 (79) 04/14/20 06:00 96.9 17 99 Room Air 04/13/20 20:30 1.0 I&O- Last 24 Hours up to 6 AM 04/14/20 06:00 Intake Total 995 ml Output Total 900 ml Balance 95 ml KATIE MUNOZ DO Apr 14, 2020 17:32
[2020-04-14] MEDS: DOXYCYCLINE HYCLATE 100MG TABLET PO SCH (20:56)
[2020-04-14] MEDS: AUGMENTIN 875 MG TAB PO SCH (20:56)
[2020-04-14] MEDS: ASCORBIC ACID 500 MG TAB PO SCH (20:57)
[2020-04-14 22:00] VITALS: BP 147/68
[2020-04-15] MEDS: FUROSEMIDE 40MG/4ML VIAL (J1940) IV SCH ×4 (00:32→11:59)
[2020-04-15] MEDS: IPRATROPIUM 0.5MG/ALBUTEROL 2.5MG INH SOL UD 3ML (DUONEB) NEB SCH ×3 (03:49→13:06)
[2020-04-15 06:00] VITALS: BP 143/64
[2020-04-15 06:20] LABS: HEMATOCRIT 33.2 % (36.0-47.0); HEMOGLOBIN 10.3 g/dl (12.0-15.5); MEAN CORPUSCULAR HEMOGLOBIN 27.6 pg (27.0-33.0); PLATELET COUNT, AUTOMATED 219 10^3/uL (150-450); RED BLOOD COUNT 3.73 10^6/uL (4.00-5.40); WHITE BLOOD COUNT 12.1 10^3/uL (4.0-10.0)
[2020-04-15 06:41] LABS: CALCIUM LEVEL 8.7 MG/DL (8.8-10.2); CREATININE FOR GFR 1.67 MG/DL (0.55-1.30); GLOMERULAR FILTRATION RATE 32.5 (>45); POTASSIUM SERUM 3.3 MEQ/L (3.5-5.1)
[2020-04-15] MEDS: AUGMENTIN 875 MG TAB PO SCH (09:04)
[2020-04-15] MEDS: HumaLOG INSULIN (NovoLOG) PER UNIT SC SCH ×2 (09:04→12:04)
[2020-04-15] MEDS: SUCRALFATE 1 GM TAB PO SCH ×2 (09:05→12:03)
[2020-04-15 09:07] VITALS: BP 143/63
[2020-04-15] MEDS: CALCIUM/VITAMIN D 500 MG TAB PO SCH (09:07)
[2020-04-15] MEDS: DOXYCYCLINE HYCLATE 100MG TABLET PO SCH (09:07)
[2020-04-15] MEDS: POTASSIUM CHLORIDE 10 MEQ SR TABLET PO SCH (09:07)
[2020-04-15] MEDS: PANTOPRAZOLE 40MG TAB (PROTONIX) PO SCH (09:07)
[2020-04-15] MEDS: bisoproloL fumarate 5 MG TAB PO SCH (09:07)
[2020-04-15] MEDS: SPIRONOLACTONE 25 MG TAB PO SCH (09:08)
[2020-04-15] MEDS: ROSUVASTATIN 10 MG TAB (CRESTOR) PO SCH (09:08)
[2020-04-15] MEDS: APIXABAN 5 MG TAB (ELIQUIS) PO SCH (09:08)
[2020-04-15] MEDS: COLESEVELAM 625 MG TAB (WELCHOL) PO SCH (09:08)
[2020-04-15] MEDS ORDERED: DOXY100T PO (11:27)
[2020-04-15] MEDS ORDERED: AMOX875T2 PO (11:27)
[2020-04-15] MEDS ORDERED: PANT40TA29 PO (11:27)
--- NOTE | 2020-04-15 14:41 | DS.PDOC ---
Discharge Summary General Date of Admission Apr 12, 2020 at 21:20 Date of Discharge 04/15/20 Discharge Summary PROCEDURES PERFORMED DURING STAY: [None]. ADMITTING DIAGNOSES: COPD (chronic obstructive pulmonary disease) Pneumonia Diabetes mellitus Diastolic congestive heart failure Anemia Atrial fibrillation Edema, peripheral Physical deconditioning Vtach DISCHARGE DIAGNOSES: COPD (chronic obstructive pulmonary disease) Pneumonia Diabetes mellitus Diastolic congestive heart failure Anemia Atrial fibrillation Edema, peripheral Physical deconditioning Vtach COMPLICATIONS/CHIEF COMPLAINT: Chf Exacerbation, Copd, Hypoxia, Pneumonia. HISTORY OF PRESENT ILLNESS: is a 69 yr old w a hx of HFpEF, COPD, TAVR, DM2 obesity, and Afib who presented w c/o of dizziness, BLE edema and dyspnea w exertion; she will be admitted for evaluation of weakness, LLL PNA, acute COPD and acute CHF. HOSPITAL COURSE: During hospital stay the following issues addressed (1) COPD (chronic obstructive pulmonary disease) c/w inhalers (2) Pneumonia LLL PNA (ABG shows respiratory acidosis) she was hypoxic on RA Pt is on Ra with oxy wnl Started PO abs (3) Diabetes mellitus BG is under control continue home meds (4) Diastolic congestive heart failure Acute Diastolic CHF (BNP >8000) f/u strict I/O, daily weights, diuretics, and Echo pending (5) Anemia normocytic anemia Hb stable pending stool for occult blood GI work up in the outpt settings (6) Atrial fibrillation HR under control Tele monitoring continue Eliquis (7) Edema, peripheral Bilateral lower extremity edema 2/2 CHF exacerbation. Pro-BNP elevated at 8565. PMH of CHF per record. Pt will be on 2L fluid restriction, cont home med c/w IV Lasix (8) Physical deconditioning PT eval Possible transfer to Rehab once clinically stable Vtach nonsustained Will check Mag EKG showed QTc prolongation. Dc Azithromycin DISCHARGE MEDICATIONS: Please see below. ALLERGIES: Please see below. PHYSICAL EXAMINATION ON DISCHARGE: VITAL SIGNS: Please see below. General Exam:Alert, Cooperative, No Acute Distress ENT Exam: Atraumatic, Mucous membr. moist/pink, Pharynx Normal, Tongue Midline, Nares Patent Neck Exam: Supple Chest Exam: Diminished lungs sound Heart Exam: S1, S2, irregularly irregular Abdomen Exam: Normal bowel sounds, Soft Extremity Exam: Edema +2 of LE bl Skin Exam: Hyperpigmentation in right lower extremity appears to be chronic Neuro Exam: CN2-12 grossly intact except for CN7, possible left mouth corner d amanda when smiling) Psych Exam: Mental status NL, Mood NL, Memory Intact LABORATORY DATA: Please see below. IMAGING: [facility] NAME: ELODIA MALDONADO DATE OF : 1950 BUSINESS NUMBER: [id number] AGE: 69 SEX: F REPORT #: [id number] ROOM: ED INP TECHNOLOGIST: [id number] DOCTOR: ALFREDO TOMAS DO Ordered for Date&Time: 04/13/20 0600 cc: [~ rep ct ivnm] Service Date&Time: 04/13/20 1228 This report is in Signed status. Interpretation performed by [facility]. Thank you for having your radiology procedures performed at [facility] RADIOLOGY REPORT Date&Time printed: [~ rep prt dt last] [~ rep prt tm last] Page 2 of [address] [address] RADIOLOGY REPORT This report is in Signed status. Interpretation performed by [facility]. Thank you for having your radiology procedures performed at [facility] RADIOLOGY REPORT Date&Time printed: [~ rep prt dt last] [~ rep prt tm last] Page 1 of 1 PROCEDURE INFORMATION: Exam: US Duplex Bilateral Extracranial Arteries Exam date and time: 04/13/2020 12:28 PM Age: 69 years old Clinical indication: Dizziness and syncope and collapse; Additional info: Presyncope TECHNIQUE: Imaging protocol: Real-time Duplex ultrasound scan of the bilateral carotid and vertebral arteries combining villalpando scale, color Doppler and spectral waveform analysis. Bilateral exam. COMPARISON: None provided. FINDINGS: There is plaque involving the carotid bifurcations bilaterally. Nodules are incidentally noted in the right lobe of the thyroid, largest measuring 3.3 x 2.6 x 2.2 cm. Vertebral artery flow is antegrade bilaterally. The following peak velocities were obtained (Systolic (Diastolic) in cm/sec) Right CCA: 80 Right ICA: Proximal 307 (83), Mid 293 (36), Distal 123 (31) Right ECA: 164 Left CCA: 85 Left ICA: Proximal 176 (25), Mid 164 (35), Distal 132 (31) Left ECA: 185 Peak ICA/CCA ratios: Right: 3.83 Left: 2.07 IMPRESSION: 1. There is plaque with Doppler evidence of at least 70% carotid artery stenosis on the right. This is on the basis of peak internal carotid artery systolic velocity. 2. There is plaque with Doppler evidence of 50-69% carotid artery stenosis on the left. This is on the basis of peak internal carotid artery systolic velocity. 3. Antegrade vertebral artery flow bilaterally. 4. Incidentally noted right thyroid nodules measuring up to 3.3 cm. Recommend dedicated evaluation. REFERENCES: SRU CRITERIA. The degree of internal carotid artery stenosis is based on criteria defined by the Society of Radiologists in Ultrasound (SRU). Normal is no stenosis. Mild is less than 50% stenosis. Moderate is 50-69% stenosis. Severe is greater than 69% stenosis to near occlusion. Near occlusion is a markedly narrowed lumen. Total occlusion is no detectable patent lumen. Electronically signed by: Madan Foley On 04/13/2020 12:52:18 PM DD: MADAN FOLEY MD 04/13/20 1228 DT: RICKEY 04/13/20 1252 DS: NEREIDA 04/13/20 1252 [~ rep ct labl] PROGNOSIS: fair ACTIVITY: [As tolerated]. DIET: cardiac DISPOSITION: home DISCHARGE INSTRUCTIONS: take abs ITEMS TO FOLLOWUP ON ON OUTPATIENT: with PCP and rivet sorter DISCHARGE CONDITION: [Stable]. TIME SPENT ON DISCHARGE: Greater than 40 minutes. Vital Signs/I&Os Vital Signs Date Time Temp Pulse Resp B/P (MAP) Pulse Ox O2 Delivery O2 Flow Rate FiO2 04/15/20 09:07 83 143/63 04/15/20 06:00 97.9 6 98 Room Air 04/13/20 20:30 1.0 I&O- Last 24 Hours up to 6 AM 04/15/20 06:00 Intake Total 1915 ml Output Total 4350 ml Balance -2435 ml Laboratory Data Labs 24H Laboratory Tests 2 04/14/20 17:22: Bedside Glucose (Misc Panel) 350H 04/14/20 18:34: Magnesium Level 2.2 04/14/20 20:41: Bedside Glucose (Misc Panel) 300H 04/15/20 05:14: Nucleated Red Blood Cells % (auto) 0.0, Anion Gap 8, Glomerular Filtration Rate 32.5L, Calcium Level 8.7L 04/15/20 11:44: Bedside Glucose (Misc Panel) 272H CBC/BMP Laboratory Tests 04/15/20 05:14 FSBS Laboratory Tests Test 04/14/20 17:22 04/14/20 20:41 04/15/20 11:44 Range/Units Bedside Glucose (Misc Panel) 350 300 272 80-115 MG/DL Microbiology Microbiology 04/12/20 Blood Culture - Preliminary, Resulted No Growth after 48 hours. All Specime... 04/12/20 Blood Culture - Preliminary, Resulted No Growth after 48 hours. All Specime... 04/12/20 Respiratory Virus Panel (PCR) (ZANE) - Final, Complete Discharge Medications Scheduled Acetaminophen (Tylenol Arthritis) 650 Mg Tablet.er, 1,300 MG PO BID, (Reported) Amoxicillin/Potassium Clav (Amox-Clav 875-125 mg Tablet) 1 Each Tablet, 875 MG PO BID Apixaban (Eliquis) 5 Mg Tab, 5 MG PO BID, (Reported) Ascorbic Acid (Vitamin C) 500 Mg Tab, 500 MG PO QHS, (Reported) Aspirin (Aspirin EC) 81 Mg Tablet.dr, 81 MG PO DAILY, (Reported) Bisoprolol Fumarate (Bisoprolol Fumarate) 5 Mg Tab, 5 MG PO DAILY, (Reported) Brinzolamide/Brimonidine Tart (Simbrinza 1%-0.2% Eye Drops) 1 Shaniqua Shaniqua, 1 DROP OU BID, (Reported) Calcium Carbonate/Vitamin D3 (Calcium 600-Vit D3 400 Tablet) 1 Each Tablet, 1 TAB PO DAILY, (Reported) Colesevelam Hydrochloride (Welchol) 625 Mg Tablet, 625 MG PO BID, (Reported) Diltiazem HCl (Diltiazem HCl) 30 Mg Tab, 30 MG PO BID, (Reported) Doxycycline Hyclate (Doxycycline Hyclate) 100 Mg Tablet, 100 MG PO BID Ergocalciferol (Vitamin D2) (Vitamin D2) 50,000 Units Cap, 50,000 UNITS PO 1XWK, (Reported) FRIDAY EVENING Ferrous Sulfate (Ferrous Sulfate) 325 Mg Tab, 650 MG PO Q2D, (Reported) Gabapentin (Neurontin) 300 Mg Cap, 300 MG PO BID, (Reported) Gentamicin Sulfate (Gentamicin Sulfate) 0.1 % Cre, 1 DOSE TOP DAILY, (Reported) APPLY TO ULCER ON TOE (RIGHT FOOT) Insulin Aspart (Novolog Flexpen) 100 Unit/Ml Inj, 1 DOSE SC AC, (Reported) PER SLIDING SCALE Insulin Degludec (Tresiba) 100 Unit/1 Ml Vial, 16 UNIT SC QHS, (Reported) Irbesartan (Irbesartan) 75 Mg Tab, 75 MG PO DAILY, (Reported) Metoclopramide Hcl (Reglan) 5 Mg Tab, 5 MG PO ACHS, (Reported) Netarsudil Mesylate (Rhopressa) 0.02 % Imelda, 1 DROP OU QHS, (Reported) Pantoprazole Sodium (Pantoprazole Sodium) 40 Mg Tablet.dr, 40 MG PO DAILY Potassium Chloride (Klor-Con M10) 10 Meq Tabcr, 10 MEQ PO DAILY, (Reported) Rosuvastatin Calcium (Crestor) 20 Mg Tab, 20 MG PO DAILY, (Reported) Spironolactone (Spironolactone) 25 Mg Tab, 25 MG PO DAILY, (Reported) Sucralfate (Sucralfate) 1 Gm Tab, 1 GM PO WMHS, (Reported) Torsemide (Torsemide) 10 Mg Tab, 20 MG PO BID, (Reported) Scheduled PRN Albuterol Sulfate (Proair Hfa) 8.5 Gm Hfa.aer.ad, 2 PUFF INH QID PRN for SHORTNESS OF BREATH, (Reported) Ammonium Lactate (Ammonium Lactate) 12 % Cre, 1 DOSE TOP BID PRN for DRY SKIN, (Reported) APPLY TO FEET Mometasone Furoate Monohydrate (Nasonex) 120 [place]/17 Gm Naspr, 1 SPRAY NA DAILY PRN for NASAL CONGESTION, (Reported) Allergies Coded Allergies: Sulfa (Sulfonamide Antibiotics) (Verified Allergy, Severe, anaphylaxis, rash, 04/30/19) neomycin (Verified Allergy, Intermediate, rash, 04/30/19) ramipril (Verified Adverse Reaction, Intermediate, cough, 04/30/19) KATIE MUNOZ DO Apr 15, 2020 14:40
--- NOTE | 2020-04-17 11:28 | ECHO ---
DATE OF PROCEDURE: 04/13/2020 Age: 69 Gender: Female Height: 168 cm Weight: 97 kg REFERRING PHYSICIAN: Yulisa Granados MD INDICATION: Dyspnea. MEASUREMENTS: 2D Measurements: Interventricular septum 1.27 cm Posterior wall 1.44 cm Left ventricle diastole 3.3 cm Left atrium 4.0 cm Aortic annulus 1.9 cm Inferior vena cava 2.4 cm with marked reduction of respiratory variation Doppler Measurements: Mild aortic stenosis No aortic regurgitation Aortic valve velocity 293 cm/s Aortic valve VTI 60.5 cm Peak aortic valve gradient 34 mmHg Mean aortic valve gradient 18 mmHg LVOT velocity 102 cm/s LVOT VTI 20.0 cm Mild mitral stenosis No mitral regurgitation Mitral E velocity (continuous wave Doppler) 241 cm/s Mean mitral valve gradient 9 mmHg Very mild tricuspid regurgitation Estimated right ventricular systolic pressure at least 74 mmHg Estimated right atrial pressure 20 mmHg Mild pulmonic regurgitation DESCRIPTION: Rhythm was atrial fibrillation with controlled ventricular response. Image quality was fair. This was a 2D, M-mode, color flow Doppler, and pulsed wave Doppler examination including mitral annular tissue Doppler. CONCLUSIONS: 1. Severe elevation of estimated right ventricle systolic pressure (at least 74 mmHg). Very mild tricuspid regurgitation. Normal right ventricle size with mild right ventricular hypertrophy. Normal RV systolic function. Very mild tricuspid regurgitation. 2. Inferior vena cava plethora. Suggestive of elevated central venous pressure of at least 20 mmHg. 3. Mild left ventricle hypertrophy geometry. Normal regional LV wall motion and wall thickening. Normal LV systolic function. LVEF of 75% by visual estimate. 4. Degenerative calcific aortic valve disease of a 3-cuspid aortic valve. Mild aortic stenosis. No aortic regurgitation. 5. Severe mitral annular calcification. Mild mitral stenosis. No mitral regurgitation. 6. Mild left atrial dilatation. 7. No pericardial effusion. MTDD
[2020-04-17 15:10] LABS: BODY FLUID CULTURE Not indicated. (.); LEGIONELLA ANTIGEN URINE Negative (Negative); ORGANISM ID Not indicated. (.); SPECIMEN SOURCE Urine (.); URINE STREP PNEUMONIAE ANTIGEN Negative (Negative)
--- NOTE | 2020-04-24 11:43 | ECGEPIP ---
[facility] - ED Test Date: 2020-04-12 Pat Name: ELODIA MALDONADO Department: Room: [facility] Gender: Female Hotel Housekeeper: Indira BARBOSA : 1950 Requested By: KOSTAS Meyer Order Number: [id number] Reading MD: Alena Singh Measurements Intervals [place] Rate: 70 P: [place]: 0 QRS: 127 QRSD: 145 T: 38 QT: 447 QTc: 483 Interpretive Statements ATRIAL FIBRILLATION MARKED RIGHT AXIS DEVIATION RIGHT BUNDLE BRANCH BLOCK ABNORMAL ECG SEE SCANNED DOWNTIME REPORT
== END 2020-04-15 14:57 | disposition home or self-care (01) | DRG 291 ==
LOC: M ED 17:35 → M ED INP 21:20 → M MSPAV 04-13 15:32
PROVIDERS: ADMIT Internal Medicine; ATTEND Internal Medicine
DX: I11.0 Hypertensive heart disease with heart failure (principal); J18.9 Pneumonia, unspecified organism; N17.9 Acute kidney failure, unspecified; I48.20 Chronic atrial fibrillation, unspecified; I47.2 Ventricular tachycardia; I50.33 Acute on chronic diastolic (congestive) heart failure; R55 Syncope and collapse; E11.9 Type 2 diabetes mellitus without complications; K44.9 Diaphragmatic hernia without obstruction or gangrene; K21.9 Gastro-esophageal reflux disease without esophagitis; J30.2 Other seasonal allergic rhinitis; G47.33 Obstructive sleep apnea (adult) (pediatric); R26.81 Unsteadiness on feet; J44.9 Chronic obstructive pulmonary disease, unspecified; E78.5 Hyperlipidemia, unspecified; Q20.6 Isomerism of atrial appendages; D64.9 Anemia, unspecified; I35.0 Nonrheumatic aortic (valve) stenosis; Z95.3 Presence of xenogenic heart valve; Z79.4 Long term (current) use of insulin; Z79.899 Other long term (current) drug therapy; Z79.01 Long term (current) use of anticoagulants; Z88.1 Allergy status to other antibiotic agents; Z88.2 Allergy status to sulfonamides; Z88.8 Allergy status to other drugs, medicaments and biological substances; Z98.84 Bariatric surgery status

== ENCOUNTER → 2020-04-20 | Outpatient (CLI) | payer MEDICARE, OTHER ==
[~2020-04-20] MED LIST changes: +ACET650T61 PO; +AMOX875T2 PO; +ASPI-161 PO; +CALC1TAB63 PO; +CEFD1CAP8 PO; +COLE625TAB PO; +DOXY100T PO; +PANT40TA29 PO
[2020-04-20 17:37] LABS: HEMOGLOBIN 11.2 g/dl (12.0-15.5); MEAN CORPUSCULAR HEMOGLOBIN 28.1 pg (27.0-33.0); MEAN CORPUSCULAR HGB CONC 31.1 g/dl (32.0-36.5); MEAN CORPUSCULAR VOLUME 90.5 fl (80.0-96.0); PLATELET COUNT, AUTOMATED 181 10^3/uL (150-450); RED BLOOD COUNT 3.98 10^6/uL (4.00-5.40); WHITE BLOOD COUNT 13.8 10^3/uL (4.0-10.0)
[2020-04-20 18:10] LABS: ALBUMIN 3.2 GM/DL (3.2-5.2); BILIRUBIN,TOTAL 0.6 MG/DL (0.2-1.0); CALCIUM LEVEL 8.7 MG/DL (8.8-10.2); CREATININE FOR GFR 1.78 MG/DL (0.55-1.30); GLOMERULAR FILTRATION RATE 30.2 (>45); MAGNESIUM LEVEL 2.5 MG/DL (1.8-2.4); POTASSIUM SERUM 3.9 MEQ/L (3.5-5.1); TOTAL PROTEIN 6.4 GM/DL (6.4-8.2)
== END ==
LOC: M PLALAB 15:09
PROVIDERS: ATTEND Family Medicine
DX: N18.3 Chronic kidney disease, stage 3 (moderate) (principal); I13.0 Hypertensive heart and chronic kidney disease with heart failure and stage 1 through stage 4 chronic kidney disease, or unspecified chronic kidney disease; I50.30 Unspecified diastolic (congestive) heart failure

== ENCOUNTER → 2020-05-03 | Outpatient (CLI) | payer MEDICARE, OTHER ==
--- NOTE | 2020-05-12 13:14 | REP ---
RENAL ULTRASOUND WITH DUPLEX DOPPLER RENAL ARTERY EVALUATION TECHNIQUE: Real-time sonographic evaluation of kidneys is performed. FINDINGS: Kidneys are normal in size and echotexture, right kidney measuring 10.5 x 6.2 x 5.4 cm and left kidney 11.4 x 5.2 x 4.7 cm. There is no hydronephrosis bilaterally. There is a cyst in the upper pole of the right kidney measuring 1.2 cm in diameter. Urinary bladder is empty. Real-time ultrasound evaluation and duplex Doppler interrogation of the renal arteries is performed bilaterally. Peak systolic velocity of the abdominal aorta at the level of the renal arteries is 111 cm/s. Peak systolic velocity of the main right renal artery is 149 cm/s, renal to aortic ratio is 1.42. Resistive indices are measured in the upper, middle, and lower thirds of the right kidney and range between 0.85 and 0.87. Acceleration times range between 0.025 and 0.037. Peak systolic velocity in the left renal artery is 158 cm/s, renal to aortic ratio 1.34. Resistive indices left kidney range between 0.84 and 0.88. Acceleration times range between 0.022 and 0.028. IMPRESSION: No compelling duplex Doppler sonographic evidence of hemodynamically significant stenosis of the renal arteries bilaterally. MTDD
== END ==
LOC: M RAD 06:43
PROVIDERS: ATTEND Family Medicine
DX: N18.3 Chronic kidney disease, stage 3 (moderate) (principal); R09.89 Other specified symptoms and signs involving the circulatory and respiratory systems

== ENCOUNTER → 2020-06-06 | Outpatient (CLI) | payer MEDICARE, OTHER ==
[2020-06-06 17:19] LABS: CALCIUM LEVEL 8.6 MG/DL (8.8-10.2); CREATININE FOR GFR 2.15 MG/DL (0.55-1.30); GLOMERULAR FILTRATION RATE 24.3 (>45); POTASSIUM SERUM 4.7 MEQ/L (3.5-5.1)
== END ==
LOC: M LAB 14:58
PROVIDERS: ATTEND Physician Assistant
DX: I50.32 Chronic diastolic (congestive) heart failure (principal)

== ENCOUNTER → 2020-06-19 | Outpatient (CLI) | payer MEDICARE, OTHER ==
[2020-06-19 11:33] LABS: CALCIUM LEVEL 9.1 MG/DL (8.8-10.2); CREATININE FOR GFR 1.92 MG/DL (0.55-1.30); GLOMERULAR FILTRATION RATE 27.6 (>45); POTASSIUM SERUM 5.1 MEQ/L (3.5-5.1)
== END ==
LOC: M LAB 09:26
PROVIDERS: ATTEND Physician Assistant
DX: I50.32 Chronic diastolic (congestive) heart failure (principal)

== ENCOUNTER → 2020-07-03 | Outpatient (CLI) | payer MEDICARE, OTHER ==
[~2020-07-03] MED LIST changes: +CYAN500T14 PO; -CYAN500T8 PO
--- NOTE | 2020-07-03 14:53 | REPPI ---
INDICATION: M53.3 COCCYDYNIA COMPARISON: None. TECHNIQUE: AP and lateral views of the sacrum and coccyx (4 total views) FINDINGS: Age-related osteopenia and generalized degenerative changes are appreciated. No obvious acute fracture or subluxation. Sacroiliac joints appear relatively symmetric and age-appropriate. IMPRESSION: Osteopenia and nonspecific age-related degenerative changes. <Electronically signed by Loy Juarez > 07/03/20 [id number]
== END ==
LOC: M PLAIMG 14:21
PROVIDERS: ATTEND Family Medicine
DX: M85.88 Other specified disorders of bone density and structure, other site (principal); M53.3 Sacrococcygeal disorders, not elsewhere classified
CPT/HCPCS: 72220; G0463

== ENCOUNTER → 2020-07-10 | Outpatient (CLI) | payer MEDICARE, OTHER ==
[~2020-07-10] MED LIST changes: -CYAN500T14 PO; +CYAN500T8 PO
[2020-07-10 14:23] LABS: BASO % 0.3 % (0.0-1.0); EOS # 0.1 10^3/uL (0.0-0.5); EOS % 1.4 % (0.0-3.0); HEMATOCRIT 34.2 % (36.0-47.0); LYMPH # 1.3 10^3/uL (1.5-5.0); LYMPH % 14.4 % (24.0-44.0); MEAN CORPUSCULAR HEMOGLOBIN 28.4 pg (27.0-33.0); MEAN CORPUSCULAR HGB CONC 32.2 g/dl (32.0-36.5); MEAN CORPUSCULAR VOLUME 88.1 fl (80.0-96.0); MONO # 0.7 10^3/uL (0.0-0.8); MONO % 7.7 % (0.0-5.0); NEUTROPHILS # 6.9 10^3/uL (1.5-8.5); NEUTROPHILS % 75.9 % (36.0-66.0); PLATELET COUNT, AUTOMATED 168 10^3/uL (150-450); RED BLOOD COUNT 3.88 10^6/uL (4.00-5.40); WHITE BLOOD COUNT 9.1 10^3/uL (4.0-10.0)
[2020-07-10 15:05] LABS: ALBUMIN 3.1 GM/DL (3.2-5.2); BILIRUBIN,TOTAL 0.3 MG/DL (0.2-1.0); CALCIUM LEVEL 8.5 MG/DL (8.8-10.2); CREATININE FOR GFR 1.58 MG/DL (0.55-1.30); GLOMERULAR FILTRATION RATE 34.6 (>45); POTASSIUM SERUM 4.1 MEQ/L (3.5-5.1); TOTAL 25(OH) VITAMIN D 38.8 NG/ML (30.0-100.0)
[2020-07-10 15:16] LABS: HEMOGLOBIN A1c 7.2 %
== END ==
LOC: M LAB 13:33
PROVIDERS: ATTEND Family Medicine
DX: E55.9 Vitamin D deficiency, unspecified (principal); E11.9 Type 2 diabetes mellitus without complications; D50.9 Iron deficiency anemia, unspecified; I50.30 Unspecified diastolic (congestive) heart failure; Z79.899 Other long term (current) drug therapy

== ENCOUNTER 2020-07-14 13:31 | Inpatient (IN) | payer MEDICARE, OTHER ==
[~2020-07-14] VITALS: Ht 167.6 cm; Wt 97.1 kg
[2020-07-14] MEDS: COLESEVELAM 625 MG TAB (WELCHOL) PO SCH (03:12)
[~2020-07-14 13:31] MED LIST changes: +CYAN500T14 PO; -CYAN500T8 PO
[2020-07-14] MEDS ORDERED: FUROSEMIDE 40MG/4ML VIAL (J1940) IV ONE (14:15)
[2020-07-14 14:23] LABS: BASO % 0.3 % (0.0-1.0); EOS # 0.1 10^3/uL (0.0-0.5); EOS % 0.9 % (0.0-3.0); HEMATOCRIT 33.9 % (36.0-47.0); HEMOGLOBIN 10.4 g/dl (12.0-15.5); MEAN CORPUSCULAR HEMOGLOBIN 27.3 pg (27.0-33.0); MEAN CORPUSCULAR HGB CONC 30.7 g/dl (32.0-36.5); MONO # 0.9 10^3/uL (0.0-0.8); NEUTROPHILS # 8.1 10^3/uL (1.5-8.5); NEUTROPHILS % 79.3 % (36.0-66.0); PLATELET COUNT, AUTOMATED 167 10^3/uL (150-450); RED BLOOD COUNT 3.81 10^6/uL (4.00-5.40); WHITE BLOOD COUNT 10.2 10^3/uL (4.0-10.0)
--- NOTE | 2020-07-14 14:25 | REP ---
INDICATION: CHEST PAIN. COMPARISON: Comparison chest x-ray April 12, 2020.. TECHNIQUE: Sitting AP portable radiograph. FINDINGS: Median sternotomy wires and monitoring electrodes are seen. Bilateral chest wall/axillary surgical clips are again noted. Mild cardiomegaly is observed unchanged. Pulmonary vasculature is not increased. The lungs are well inflated and clear. The pleural angles are sharp. No acute bony abnormality is appreciated. IMPRESSION: Postoperative changes. Mild cardiac enlargement. Otherwise no acute disease. <Electronically signed by Guido Hirsch > 07/14/20 [id number]
[2020-07-14 14:53] LABS: ALT/SGPT 14 U/L (12-78); BILIRUBIN,DIRECT 0.2 MG/DL (0.0-0.2); BILIRUBIN,TOTAL 0.7 MG/DL (0.2-1.0); BLOOD UREA NITROGEN 49 MG/DL (7-18); CALCIUM LEVEL 8.6 MG/DL (8.8-10.2); CARBON DIOXIDE LEVEL 30 MEQ/L (21-32); CHLORIDE LEVEL 107 MEQ/L (98-107); CK-MB VALUE MASS < 1.0 NG/ML (<3.6); CPK CREATINE PHOSPHOKINASE 36 U/L (26-192); CREATININE FOR GFR 1.73 MG/DL (0.55-1.30); GLOMERULAR FILTRATION RATE 31.2 (>45); GLUCOSE, FASTING 226 MG/DL (70-100); MB/CK RELATIVE INDEX 2.78 (< OR =4); NT-PRO BNP 3960 PG/ML (<125); SODIUM LEVEL 142 MEQ/L (136-145); TOTAL PROTEIN 6.3 GM/DL (6.4-8.2); TROPONIN I < 0.02 NG/ML (< 0.10)
--- NOTE | 2020-07-14 17:56 | HPEPDOC ---
[facility] Medical History & Physical Date of Admission Jul 14, 2020 Date of Service: Jul 14, 2020 Attending Physician: Dana Calles MD History and Physical CHIEF COMPLAINT: Increased SOB, chest pain HISTORY OF PRESENT ILLNESS: Patient is a 69 y/o F with extensive past medical history listed below who presented with increased shortness of breath, chest pressure over the past one week. The patient states that over the past several months she has had increased difficult A laying flat and has been sleeping in a recliner chair in her home. She is noted fluctuating weight gain and increased episodes of shortness of breath. 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 She is monitoring her daily weights at home regularly and adjusting her torsemide pills based off of weight gain. She has noticed that over the past week she has gained more than 4 pounds and has been instructed to take chewable the amount of her diuretics at home. She also states that she's had chest pain over this past several days, substernal in location, relating to the left chest at times, 5/10 on pain scale, intermittent. She denies any recent pulling, pushing, lifting out of the ordinary. She denies decreased appetite, lethargy, cough, fevers, abdominal pain, nausea, vomiting, diarrhea, chills. In the emergency room the patient had stable vital signs. She was noted to have hypoxic episode 8688 percent on room air at rest. She was placed on several liters of nasal cannula. WBC 10.2, H/H 10/33. Creatinine was elevated at 1.73; however, after trending over the past several months this appears to be her baseline. The patient states her physicians are watching this closely. BNP was elevated at 3960, troponin negative. Chest x-ray was negative for acute findings. Blood sugar was elevated at 226. Due to the patient continuing to require oxygen the patient was admitted for acute on chronic heart failure with preserved ejection fraction with exacerbation, hypoxia. REVIEW OF SYSTEMS: Neg except mentioned above PAST MEDICAL HISTORY: HFpEF, EF 75% Anemia GERD/hiatal hernia Obesity s/p Danielle-En-Y Atrial Fibrillation on eliquis Hypertension Type 2 diabetes, IDDM duodenal ulcer/gastric pouch ulceration/hx of upper GI bleed Esophagitis metaplasia, mild Sinusitism chronic Alergic rhinitis Dyslipidemia COPD DAVIDSON Diabetic retinopathy status post laser eye surgery History of breast cancer status post mastectomy Moderate atheroma in distal aortic aarch and descending thorac aorta Tubular adenoma in colon Lumbar spondylosis PAST SURGICAL HISTORY: Hysterectomy/JENNIFER BSO for noncancerous reasons Gastric bypass in 2006 Bladder elevation in Left breast US guided biopsy 01/20/2015 Left breast lumpectomy 03/2015 Bilateral mastectomy Aortic Valve replacement with bioprosthetic valve in 2010 Cholecystectomy in 07/2018 SOCIAL HISTORY: Prior smoker for 20 years, quit 25-30 years ago. Smoked 3 PPD. Denies alcohol or drug use. PCP- Dr. Bruno Lennon, Business Applications Specialist- Dr. Ortiz/Kathi. Full code Lives at home. FAMILY HISTORY: mother- liver cancer. at 41 y/o father- CAD, DM . Deceasead at 80 y/o ALLERGIES: Please see below. HOME MEDICATIONS: Please see below. PHYSICAL EXAMINATION: VS: Please see above CONSTITUTIONAL: No acute distress, sitting at edge of bed, AAO x 3 EYES: PERRLA, EOM intact HENT, MOUTH: Normocephalic, atraumatic, moist mucous membranes, NC in place NECK: SUPPLE, no JVD, no lymphadenopathy, no carotid bruit CV: Regular rate and rhythm, S1S2 normal, no murmurs/rubs/gallops RESPIRATORY: Crackles in post lung ocampo-minimal. no rales/rhonchi/wheezes GI: BS positive in 4 quadrants, soft, nontender, nondistended, no rebound or guarding, no organomegaly : Deferred MUSCULOSKELETAL: Normal ROM. No cyanosis, clubbing, swelling, joint deformity, extremity edema INTEGUMENTARY: Intact, no rashes, no lesions, no erythema NEUROLOGIC: Cranial Nerves II-XII are intact, no focal deficits PSYCHIATRIC: Mood and affect are normal LABORATORY DATA: Please see below MICROBIOLOGY: Resp panel: Neg for COVID Flu: Neg IMAGING: CXR: Postoperative changes. Mild cardiac enlargement. Otherwise no acute disease. Echocardiogram 04/2020: 1. Severe elevation of estimated right ventricle systolic pressure (at least 74mmHg). Very mild tricuspid regurgitation. Normal right ventricle size with mild right ventricular hypertrophy. Normal RV systolic function. Very mild tri cuspid regurgitation. 2. Inferior vena cava plethora. Suggestive of elevated central venous pressure of at least 20 mmHg. 3. Mild left ventricle hypertrophy geometry. Normal regional LV wall motion andwall thickening. Normal LV systolic function. LVEF of 75% by visual estimate. 4. Degenerative calcific aortic valve disease of a 3-cuspid aortic valve. Mild aortic stenosis. No aortic regurgitation. 5. Severe mitral annular calcification. Mild mitral stenosis. No mitral regurgitation. 6. Mild left atrial dilatation. 7. No pericardial effusion. ASSESSMENT: 69 y/o F with PMH of HFpEF (75%), DM type II, HTN, COPD, atrial fib on eliquis admitted for acute on chronic HFpEF with exacerbation, hypoxia. PLAN: # Acute on chronic HFpEF with exacerbation -BNP 3960, gradually increasing since 04/2020. + orthopnea, lower ext swelling, SOB, wt gain, shortness of breath with chest pain -CXR: neg -Trop neg -Last echo from 04/2020: above -C/w lasix BID, CCB, BB, ARB and other home cardiac meds. Monitoring Cr closely- currently at her new baseline -Tele, I&O's, daily wt, low salt diet, fluid restriction #Chest pain r/o ACS -Substernal, radiates to left chest, intermittent and patient states this is familiar pain- has happened multiple times in past. -Trop x 1 neg, cycle two more labs -ECG: atrial fib, no new abnormalities when compared to prior -C/w BB daily, CCB BID, ASA, nitro PRN #Hyperlipidemia. -C/w Crestor. #Anemia likely 2/2 to MARIA DEL ROSARIO and ACD -H/H at patient's baseline -No s/s of bleeding -C/w ferrous sulfate supplement -CBC daily #A. fib, chronic and rate controlled -C/w CCB, BB, eliquis BID #COPD, not currently in exacerbation -Currently on 2 L NC; however, no wheezing, rhonchi -C/w albuterol PRN #DM type II -BS 226 -C/w levemir HS, ISS, AC/HS FS, consistent carb diet #Hx of GERD, PUD -C/w sucralfate, PPI #HTN -C/w home meds # CKD Stage III, over past 3 months -Cr appears to be close to baseline -C/w diuresis, monitor daily labs to see if worsening #DAVIDSON -Can use home BIpap #DVT px -Eliquis BID DISPOSITION: Admitted as acute inpatient. PT/OT. Plan is discharge home when medically improved. Vital Signs Vital Signs Date Time Temp Pulse Resp B/P (MAP) Pulse Ox O2 Delivery O2 Flow Rate FiO2 07/14/20 17:16 63 98 07/14/20 17:15 22 165/72 (103) Room Air 07/14/20 14:32 98.3 3.0 Laboratory Data Labs 24H Laboratory Tests 2 07/14/20 14:13: Immature Granulocyte % (Auto) 0.5, Neutrophils (%) (Auto) 79.3H, Lymphocytes (%) (Auto) 10.0L, Monocytes (%) (Auto) 9.0H, Eosinophils (%) (Auto) 0.9, Basophils (%) (Auto) 0.3, Neutrophils # (Auto) 8.1, Lymphocytes # (Auto) 1.0L, Monocytes # (Auto) 0.9H, Eosinophils # (Auto) 0.1, Basophils # (Auto) 0.0, Nucleated Red Blood Cells % (auto) 0.0, Anion Gap 5L, Glomerular Filtration Rate 31.2L, Calcium Level 8.6L, Total Bilirubin 0.7, Direct Bilirubin 0.2, Aspartate Amino Transf (AST/SGOT) 11, Alanine Aminotransferase (ALT/SGPT) 14, Alkaline Phosphatase 96, Total Creatine Kinase 36, Creatine Kinase MB < 1.0, Creatine Kinase MB Relative Index 2.78, Troponin I < 0.02, JT-Rch-K-Type Natriuretic Peptide 3960H, Total Protein 6.3L, Albumin 3.0L, Albumin/Globulin Ratio 0.9L 07/14/20 15:33: Coronavirus (COVID-19)(PCR) NEGATIVE, Influenza Type A (RT-PCR) NEGATIVE, Influenza Type B (RT-PCR) NEGATIVE, Respiratory Syncytial Virus (PCR) NEGATIVE CBC/BMP Laboratory Tests 07/14/20 14:13 Home Medications Scheduled Acetaminophen (Tylenol Arthritis) 650 Mg Tablet.er, 1,300 MG PO BID Amoxicillin/Potassium Clav (Amox-Clav 875-125 mg Tablet) 1 Each Tablet, 875 MG PO BID Apixaban (Eliquis) 5 Mg Tab, 5 MG PO BID Ascorbic Acid (Vitamin C) 500 Mg Tab, 500 MG PO QHS Aspirin (Aspirin EC) 81 Mg Tablet.dr, 81 MG PO DAILY Bisoprolol Fumarate (Bisoprolol Fumarate) 5 Mg Tab, 5 MG PO DAILY Brinzolamide/Brimonidine Tart (Simbrinza 1%-0.2% Eye Drops) 1 Shaniqua Shaniqua, 1 DROP OU BID Calcium Carbonate/Vitamin D3 (Calcium 600-Vit D3 400 Tablet) 1 Each Tablet, 1 TAB PO DAILY Colesevelam Hydrochloride (Welchol) 625 Mg Tablet, 625 MG PO BID Diltiazem HCl (Diltiazem HCl) 30 Mg Tab, 30 MG PO BID Doxycycline Hyclate (Doxycycline Hyclate) 100 Mg Tablet, 100 MG PO BID Ergocalciferol (Vitamin D2) (Vitamin D2) 50,000 Units Cap, 50,000 UNITS PO 1XWK WEDNESDAY EVENING Ferrous Sulfate (Ferrous Sulfate) 325 Mg Tab, 650 MG PO Q2D Gabapentin (Neurontin) 300 Mg Cap, 300 MG PO BID Gentamicin Sulfate (Gentamicin Sulfate) 0.1 % Cre, 1 DOSE TOP DAILY APPLY TO ULCER ON TOE (RIGHT FOOT) Insulin Aspart (Novolog Flexpen) 100 Unit/Ml Inj, 1 DOSE SC AC PER SLIDING SCALE Insulin Degludec (Tresiba) 100 Unit/1 Ml Vial, 16 UNIT SC QHS Irbesartan (Irbesartan) 75 Mg Tab, 75 MG PO DAILY Metoclopramide Hcl (Reglan) 5 Mg Tab, 5 MG PO ACHS Netarsudil Mesylate (Rhopressa) 0.02 % Imelda, 1 DROP OU QHS Pantoprazole Sodium (Pantoprazole Sodium) 40 Mg Tablet.dr, 40 MG PO DAILY Potassium Chloride (Klor-Con M10) 10 Meq Tabcr, 10 MEQ PO DAILY Rosuvastatin Calcium (Crestor) 20 Mg Tab, 20 MG PO DAILY Spironolactone (Spironolactone) 25 Mg Tab, 25 MG PO DAILY Sucralfate (Sucralfate) 1 Gm Tab, 1 GM PO WMHS Torsemide (Torsemide) 10 Mg Tab, 20 MG PO BID Scheduled PRN Albuterol Sulfate (Proair Hfa) 8.5 Gm Hfa.aer.ad, 2 PUFF INH QID PRN for SHORTNESS OF BREATH Ammonium Lactate (Ammonium Lactate) 12 % Cre, 1 DOSE TOP BID PRN for DRY SKIN APPLY TO FEET Mometasone Furoate Monohydrate (Nasonex) 120 Winston/17 Gm Naspr, 1 SPRAY NA DAILY PRN for NASAL CONGESTION Allergies Coded Allergies: Sulfa (Sulfonamide Antibiotics) (Verified Allergy, Severe, anaphylaxis, rash, 04/30/19) neomycin (Verified Allergy, Intermediate, rash, 04/30/19) ramipril (Verified Adverse Reaction, Intermediate, cough, 04/30/19) A-FIB/CHADSVASC A-FIB History Current/History of A-Fib/PAF?: Yes Current PO Anticoag Therapy: Yes Age/Risk Factor Scoring CHADSVASC: CHADSVASC Response (Comments) Value Age Risk Factor Age 65-74 years old 1 Gender Risk Factor Female 1 Hx of CHF Yes 1 Hx of HTN Yes 1 Hx of Stroke/TIA/or VTE No 0 Hx of Diabetes Yes 1 Hx of Vascular Disease No 0 Total 5 Treatment Treatment ordered: Other Other anticoagulant ordered: Dana Cheek MD Jul 14, 2020 17:56
[2020-07-14] MEDS ORDERED: CEFAD50CA PO (18:42)
[2020-07-14] MEDS ORDERED: ALBUTEROL 90 MCG/ACT 8GM HFA INHALER INH PRN (19:00)
[2020-07-14] MEDS ORDERED: FLUTICASONE PROP 0.05% NASAL SPRAY 16 GM (FLONASE) PRN (19:00)
[2020-07-14] MEDS ORDERED: LACTIC ACID 12% LOTION 225 GM BTL TOP PRN (19:00)
[2020-07-14] MEDS ORDERED: DEXTROSE 50% 50 ML SYRINGE IV PRN (19:00)
[2020-07-14] MEDS ORDERED: GLUCAGON INJ 1MG VIAL SC PRN (19:00)
[2020-07-14] MEDS ORDERED: GLUCOSE 4GM CHEW TABLET PO PRN (19:00)
[2020-07-14] MEDS ORDERED: HEPARIN SOD (PORCINE) 5000UNITS/ML 1ML VIAL/SYRINGE SC SCH (21:00)
[2020-07-14] MEDS ORDERED: FUROSEMIDE 40MG/4ML VIAL (J1940) IV SCH (21:00)
[2020-07-14 22:15] VITALS: BP 131/59
[2020-07-14] MEDS: APIXABAN 5 MG TAB (ELIQUIS) PO SCH (22:54)
[2020-07-14] MEDS: METOCLOPRAMIDE 5 MG TAB PO SCH (22:54)
[2020-07-14] MEDS: SUCRALFATE 1 GM TAB PO SCH (22:55)
[2020-07-14] MEDS: GABAPENTIN 300 MG CAP PO SCH (22:55)
[2020-07-14] MEDS: FUROSEMIDE 40MG/4ML VIAL (J1940) IV SCH (22:55)
[2020-07-14] MEDS: ACETAMINOPHEN 650MG ER TAB (TYLENOL ARTHRITIS) PO SCH (22:55)
[2020-07-14] MEDS: HumaLOG INSULIN (NovoLOG) PER UNIT SC SCH (22:56)
[2020-07-14] MEDS: LEVEMIR (INSULIN DETEMIR) 1 UNITS/0.01ML SC SCH (22:57)
[2020-07-15 06:00] VITALS: BP 127/63
[2020-07-15 06:16] LABS: HEMATOCRIT 30.3 % (36.0-47.0); HEMOGLOBIN 9.3 g/dl (12.0-15.5); MEAN CORPUSCULAR HEMOGLOBIN 27.5 pg (27.0-33.0); MEAN CORPUSCULAR HGB CONC 30.7 g/dl (32.0-36.5); MEAN CORPUSCULAR VOLUME 89.6 fl (80.0-96.0); PLATELET COUNT, AUTOMATED 158 10^3/uL (150-450); RED BLOOD COUNT 3.38 10^6/uL (4.00-5.40)
[2020-07-15 06:34] LABS: ALBUMIN 2.7 GM/DL (3.2-5.2); BILIRUBIN,TOTAL 0.5 MG/DL (0.2-1.0); CALCIUM LEVEL 8.3 MG/DL (8.8-10.2); CREATININE FOR GFR 1.74 MG/DL (0.55-1.30); POTASSIUM SERUM 3.8 MEQ/L (3.5-5.1); TOTAL PROTEIN 5.7 GM/DL (6.4-8.2)
--- NOTE | 2020-07-15 06:45 | ECGEPIP ---
[facility] - ED Test Date: 2020-07-14 Pat Name: ELODIA MALDONADO Department: Room: - Gender: Female Principal Planner: JUAN ALBERTO : 1950 Requested By: Alena Singh Order Number: [id number] Reading MD: Jillian Colunga Measurements Intervals [place] Rate: 65 P: [place]: 0 QRS: 22 QRSD: 143 T: 38 QT: 441 QTc: 460 Interpretive Statements ATRIAL FIBRILLATION INDETERMINATE AXIS RIGHT BUNDLE BRANCH BLOCK CW 04/12/[address] T WAVE CHANGES Electronically Signed on 07-15-2020 6:44:56 EST by Jillian Colunga
[2020-07-15] MEDS: METOCLOPRAMIDE 5 MG TAB PO SCH ×4 (08:42→20:42)
[2020-07-15] MEDS: APIXABAN 5 MG TAB (ELIQUIS) PO SCH ×2 (08:44→20:42)
[2020-07-15] MEDS: HumaLOG INSULIN (NovoLOG) PER UNIT SC SCH ×4 (08:44→20:43)
[2020-07-15] MEDS: SUCRALFATE 1 GM TAB PO SCH ×2 (08:44→20:42)
[2020-07-15] MEDS: ASPIRIN 81 MG ENTERIC TAB PO SCH (08:44)
[2020-07-15] MEDS: FUROSEMIDE 40MG/4ML VIAL (J1940) IV SCH (08:44)
[2020-07-15] MEDS: COLESEVELAM 625 MG TAB (WELCHOL) PO SCH ×2 (08:45→20:42)
[2020-07-15] MEDS: bisoproloL fumarate 5 MG TAB PO SCH (08:45)
[2020-07-15] MEDS: ACETAMINOPHEN 650MG ER TAB (TYLENOL ARTHRITIS) PO SCH ×2 (08:45→20:42)
[2020-07-15] MEDS: FERROUS SULFATE 325MG TAB PO SCH (08:45)
[2020-07-15] MEDS: POTASSIUM CHLORIDE 10 MEQ SR TABLET PO SCH (08:45)
[2020-07-15] MEDS: GABAPENTIN 300 MG CAP PO SCH ×2 (08:45→20:42)
[2020-07-15] MEDS: ROSUVASTATIN 10 MG TAB (CRESTOR) PO SCH (08:45)
[2020-07-15] MEDS ORDERED: FUROSEMIDE 20MG/2ML VIAL (J1940) IV ONE (11:30)
[2020-07-15 14:00] VITALS: BP 119/53
[2020-07-15] MEDS ORDERED: NITROGLYCERIN 0.4 MG SUBL TABLET SL PRN (15:30)
--- NOTE | 2020-07-15 15:33 | IPNPDOC ---
Date Seen The patient was seen on 07/15/20. Progress Note SUBJECTIVE: Neg fluid balance, increased IV lasix to 60 mg BID due to not diuresing as much as desired. Desaturating to 84% on RA with ambulation, placed on oxygen supplementation. Denies incr SOB, fevers, chills, cough, n/v/d. OBJECTIVE: PHYSICAL EXAMINATION: VS: Please see above CONSTITUTIONAL: No acute distress, AAO x 3 EYES: PERRLA, EOM intact HENT, MOUTH: Normocephalic, atraumatic, moist mucous membranes, NC in place NECK: SUPPLE, no JVD, no lymphadenopathy, no carotid bruit CV: Regular rate and rhythm, S1S2 normal, no murmurs/rubs/gallops RESPIRATORY: Crackles in post lung ocampo-minimal. no rales/rhonchi/wheezes GI: BS positive in 4 quadrants, soft, nontender, nondistended, no rebound or guarding, no organomegaly : Deferred MUSCULOSKELETAL: Normal ROM. No cyanosis, clubbing, swelling, joint deformity, +2 LE extremity edema INTEGUMENTARY: Intact, no rashes, no lesions, no erythema NEUROLOGIC: Cranial Nerves II-XII are intact, no focal deficits PSYCHIATRIC: Mood and affect are normal LABORATORY DATA: Please see below MICROBIOLOGY: Resp panel: Neg for COVID Flu: Neg IMAGING: CXR: Postoperative changes. Mild cardiac enlargement. Otherwise no acute disease. Echocardiogram 04/2020: 1. Severe elevation of estimated right ventricle systolic pressure (at least 74mmHg). Very mild tricuspid regurgitation. Normal right ventricle size with mild right ventricular hypertrophy. Normal RV systolic function. Very mild tricuspid regurgitation. 2. Inferior vena cava plethora. Suggestive of elevated central venous pressure of at least 20 mmHg. 3. Mild left ventricle hypertrophy geometry. Normal regional LV wall motion andwall thickening. Normal LV systolic function. LVEF of 75% by visual estimate. 4. Degenerative calcific aortic valve disease of a 3-cuspid aortic valve. Mild aortic stenosis. No aortic regurgitation. 5. Severe mitral annular calcification. Mild mitral stenosis. No mitral regurgitation. 6. Mild left atrial dilatation. 7. No pericardial effusion. ASSESSMENT: 69 y/o F with PMH of HFpEF (75%), DM type II, HTN, COPD, atrial fib on eliquis admitted for acute on chronic HFpEF with exacerbation, hypoxia. PLAN: # Acute on chronic HFpEF with exacerbation -BNP 3960, gradually increasing since 04/2020. + orthopnea, lower ext swelling, SOB, wt gain, shortness of breath with chest pain -Desaturating to 84% on RA with ambulation, placed on 1 L incr to 94%. At rest without O2, 95% on RA. -CXR: neg -Trop neg -Last echo from 04/2020: above -C/w increased lasix 60 mg IV BID, CCB, BB, ARB and other home cardiac meds. Monitoring Cr closely- currently at her new baseline -Tele, I&O's, daily wt, low salt diet, fluid restriction #Atypical chest pain- resolved -Substernal, radiates to left chest, intermittent and patient states this is familiar pain- has happened multiple times in past. -Trop x 3 neg -ECG: atrial fib, no new abnormalities when compared to prior -C/w BB daily, CCB BID, ASA, nitro PRN #Hyperlipidemia. -C/w Crestor. #Anemia likely 2/2 to MARIA DEL ROSARIO and ACD -H/H at patient's baseline -No s/s of bleeding -C/w ferrous sulfate supplement -CBC daily #A. fib, chronic and rate controlled -C/w CCB, BB, eliquis BID #COPD, not currently in exacerbation - no wheezing, rhonchi -C/w albuterol PRN #DM type II -BS 235 -C/w levemir HS, ISS, AC/HS FS, consistent carb diet #Hx of GERD, PUD -C/w sucralfate, PPI #HTN -C/w home meds # CKD Stage III, over past 3 months -Cr appears to be close to baseline -C/w diuresis, monitor daily labs to see if worsening #DAVIDSON -Can use home Bipap #DVT px -Eliquis BID DISPOSITION: Admitted as acute inpatient. PT/OT. Plan is discharge home when medically improved. VS, I&O, 24H, Fishbone Vital Signs/I&O Vital Signs Date Time Temp Pulse Resp B/P (MAP) Pulse Ox O2 Delivery O2 Flow Rate FiO2 07/15/20 09:00 1.0 07/15/20 08:43 69 128/81 07/15/20 06:00 97.6 19 96 Nasal Cannula I&O- Last 24 Hours up to 6 AM 07/15/20 06:00 Intake Total 360 ml Output Total 1050 ml Balance -690 ml Laboratory Data 24H LABS Laboratory Tests 2 07/14/20 15:33: Coronavirus (COVID-19)(PCR) NEGATIVE, Influenza Type A (RT-PCR) NEGATIVE, Influenza Type B (RT-PCR) NEGATIVE, Respiratory Syncytial Virus (PCR) NEGATIVE 07/14/20 18:59: Troponin I < 0.02 07/14/20 22:32: Bedside Glucose (Misc Panel) 259H 07/14/20 22:41: Troponin I < 0.02 07/15/20 05:53: Nucleated Red Blood Cells % (auto) 0.0, Anion Gap 4L, Glomerular Filtration Rate 31.0L, Calcium Level 8.3L, Total Bilirubin 0.5, Aspartate Amino Transf (AST/SGOT) 10, Alanine Aminotransferase (ALT/SGPT) 13, Alkaline Phosphatase 84, Total Protein 5.7L, Albumin 2.7L, Albumin/Globulin Ratio 0.9L 07/15/20 11:48: Bedside Glucose (Misc Panel) 235H CBC/BMP Laboratory Tests 07/15/20 05:53 Current Medications Current Medications Medications (Trade) Dose Ordered Sig/Tariq Route PRN Reason Start Time Stop Time Status Last Admin Dose Admin Acetaminophen (Tylenol Arthritis Er) 1,300 mg BID PO 07/14/20 21:00 07/15/20 08:45 Albuterol Sulfate (Proventil, Ventolin Hfa) 2 puff QIDP PRN INH SHORTNESS OF BREATH 07/14/20 19:00 Apixaban (Eliquis) 5 mg BID PO 07/14/20 21:00 07/15/20 08:44 Aspirin (Ecotrin) 81 mg DAILY PO 07/15/20 09:00 07/15/20 08:44 Bisoprolol Fumarate (Zebeta) 5 mg DAILY PO 07/15/20 09:00 07/15/20 08:45 Colesevelam HCl (WelChoL) 625 mg BID PO 07/14/20 21:00 07/15/20 08:45 Dextrose (Dextrose 50%) 25 ml ASDIRECTED PRN IV SEE LABEL COMMENTS 07/14/20 19:00 Diltiazem HCl (Cardizem) 30 mg BID PO 07/14/20 21:00 07/15/20 08:43 Ferrous Sulfate (Ferrous Sulfate) 650 mg Q2D PO 07/15/20 09:00 07/15/20 08:45 Fluticasone Propionate (Flonase 0.05% Nasal [place]) 1 spray DAILYPRN PRN NA NASAL CONGESTION 07/14/20 19:00 Furosemide (LASIX injection) 40 mg BID IV 07/14/20 21:00 07/14/20 19:02 DC Furosemide (LASIX injection) 50 mg BID IV 07/14/20 21:00 07/15/20 11:14 DC 07/15/20 08:44 Furosemide (LASIX injection) 60 mg BID IV 07/15/20 21:00 Gabapentin (Neurontin) 300 mg BID PO 07/14/20 21:00 07/15/20 08:45 Glucagon (Glucagon) 1 mg ASDIRECTED PRN SC SEE LABEL COMMENTS 07/14/20 19:00 Glucose (Glucose) 16 GM ASDIRECTED PRN PO SEE LABEL COMMENTS 07/14/20 19:00 Heparin Sodium (Porcine) (Heparin) 5,000 units Q12H SC 07/14/20 21:00 Cancel Home Med (Med Rec Complete!) ASDIRECTED XX 07/14/20 18:45 07/14/20 18:51 DC Insulin Detemir (Levemir Insulin) 10 units QPM SC 07/14/20 21:00 07/14/20 22:57 Insulin Human Lispro (HumaLOG INSULIN) SEE PROTOCOL TABLE AC SC 07/15/20 07:30 07/15/20 13:23 Insulin Human Lispro (HumaLOG INSULIN) SEE PROTOCOL TABLE QHS SC 07/14/20 21:00 07/14/20 22:56 Lactic Acid (Lac-Hydrin 12% Lotion) APPLY TO FEET BIDP PRN TOP DRY SKIN 07/14/20 19:00 Metoclopramide HCl (Reglan) 5 mg ACHS PO 07/14/20 21:00 07/15/20 13:22 Potassium Chloride (Micro-K Extencaps) 10 meq DAILY PO 07/15/20 09:00 07/15/20 08:45 Rosuvastatin Calcium (Crestor) 20 mg DAILY PO 07/15/20 09:00 07/15/20 08:45 Sucralfate (Carafate) 1 gm BID PO 07/14/20 21:00 07/15/20 08:44 Allergies Coded Allergies: Sulfa (Sulfonamide Antibiotics) (Verified Allergy, Severe, anaphylaxis, rash, 04/30/19) neomycin (Verified Allergy, Intermediate, rash, 04/30/19) ramipril (Verified Adverse Reaction, Intermediate, cough, 04/30/19) Dana Calles MD Jul 15, 2020 15:32
[2020-07-15] MEDS: LEVEMIR (INSULIN DETEMIR) 1 UNITS/0.01ML SC SCH (20:43)
[2020-07-15] MEDS ORDERED: FUROSEMIDE 40MG/4ML VIAL (J1940) IV SCH (21:00)
[2020-07-15 22:00] VITALS: BP 144/57
[2020-07-16 06:00] VITALS: BP 118/63
[2020-07-16 06:47] LABS: HEMATOCRIT 31.3 % (36.0-47.0); HEMOGLOBIN 9.9 g/dl (12.0-15.5); MEAN CORPUSCULAR HGB CONC 31.6 g/dl (32.0-36.5); MEAN CORPUSCULAR VOLUME 88.7 fl (80.0-96.0); PLATELET COUNT, AUTOMATED 177 10^3/uL (150-450); RED BLOOD COUNT 3.53 10^6/uL (4.00-5.40); WHITE BLOOD COUNT 7.5 10^3/uL (4.0-10.0)
[2020-07-16 07:09] LABS: ALBUMIN 2.6 GM/DL (3.2-5.2); BILIRUBIN,TOTAL 0.4 MG/DL (0.2-1.0); CALCIUM LEVEL 8.5 MG/DL (8.8-10.2); CREATININE FOR GFR 1.95 MG/DL (0.55-1.30); GLOMERULAR FILTRATION RATE 27.2 (>45); POTASSIUM SERUM 3.8 MEQ/L (3.5-5.1); TOTAL PROTEIN 6.4 GM/DL (6.4-8.2)
[2020-07-16] MEDS: COLESEVELAM 625 MG TAB (WELCHOL) PO SCH ×2 (09:02→20:18)
[2020-07-16] MEDS: METOCLOPRAMIDE 5 MG TAB PO SCH ×4 (09:02→20:18)
[2020-07-16] MEDS: ASPIRIN 81 MG ENTERIC TAB PO SCH (09:02)
[2020-07-16] MEDS: FUROSEMIDE 40MG/4ML VIAL (J1940) IV SCH ×2 (09:02→17:24)
[2020-07-16] MEDS: ACETAMINOPHEN 650MG ER TAB (TYLENOL ARTHRITIS) PO SCH ×2 (09:02→20:18)
[2020-07-16] MEDS: APIXABAN 5 MG TAB (ELIQUIS) PO SCH ×2 (09:03→20:18)
[2020-07-16] MEDS: GABAPENTIN 300 MG CAP PO SCH ×2 (09:03→20:18)
[2020-07-16] MEDS: POTASSIUM CHLORIDE 10 MEQ SR TABLET PO SCH (09:03)
[2020-07-16] MEDS: ROSUVASTATIN 10 MG TAB (CRESTOR) PO SCH (09:03)
[2020-07-16] MEDS: bisoproloL fumarate 5 MG TAB PO SCH (09:03)
[2020-07-16] MEDS: SUCRALFATE 1 GM TAB PO SCH ×2 (09:03→20:18)
[2020-07-16] MEDS: LEVEMIR (INSULIN DETEMIR) 1 UNITS/0.01ML SC SCH ×2 (09:04→20:18)
[2020-07-16] MEDS: HumaLOG INSULIN (NovoLOG) PER UNIT SC SCH ×4 (09:04→20:17)
[2020-07-16 14:00] VITALS: BP 141/60
--- NOTE | 2020-07-16 15:53 | IPNPDOC ---
Date Seen The patient was seen on 07/16/20. Progress Note SUBJECTIVE: Neg fluid balance, extremities appear less edematous today but still +1 pitting. Denies incr SOB, fevers, chills, cough, n/v/d. OBJECTIVE: PHYSICAL EXAMINATION: VS: Please see above CONSTITUTIONAL: No acute distress, AAO x 3 EYES: PERRLA, EOM intact HENT, MOUTH: Normocephalic, atraumatic, moist mucous membranes, NC in place NECK: SUPPLE, no JVD, no lymphadenopathy, no carotid bruit CV: Regular rate and rhythm, S1S2 normal, no murmurs/rubs/gallops RESPIRATORY: Crackles in post lung ocampo-minimal. no rales/rhonchi/wheezes GI: BS positive in 4 quadrants, soft, nontender, nondistended, no rebound or guarding, no organomegaly : Deferred MUSCULOSKELETAL: Normal ROM. No cyanosis, clubbing, swelling, joint deformity, +1 LE extremity edema INTEGUMENTARY: Intact, no rashes, no lesions, no erythema NEUROLOGIC: Cranial Nerves II-XII are intact, no focal deficits PSYCHIATRIC: Mood and affect are normal LABORATORY DATA: Please see below MICROBIOLOGY: Resp panel: Neg for COVID Flu: Neg IMAGING: CXR: Postoperative changes. Mild cardiac enlargement. Otherwise no acute disease. Echocardiogram 04/2020: 1. Severe elevation of estimated right ventricle systolic pressure (at least 74mmHg). Very mild tricuspid regurgitation. Normal right ventricle size with mil d right ventricular hypertrophy. Normal RV systolic function. Very mild tricuspid regurgitation. 2. Inferior vena cava plethora. Suggestive of elevated central venous pressure of at least 20 mmHg. 3. Mild left ventricle hypertrophy geometry. Normal regional LV wall motion andwall thickening. Normal LV systolic function. LVEF of 75% by visual estimate. 4. Degenerative calcific aortic valve disease of a 3-cuspid aortic valve. Mild aortic stenosis. No aortic regurgitation. 5. Severe mitral annular calcification. Mild mitral stenosis. No mitral regurgitation. 6. Mild left atrial dilatation. 7. No pericardial effusion. ASSESSMENT: 69 y/o F with PMH of HFpEF (75%), DM type II, HTN, COPD, atrial fib on eliquis admitted for acute on chronic HFpEF with exacerbation, hypoxia. PLAN: # Acute on chronic HFpEF with exacerbation -BNP 3960--> 2931, decreased SOB, decreased LE edema -Remains on RA at rest -CXR: neg -Trop neg -Last echo from 04/2020: above -C/w increased lasix 60 mg IV BID, CCB, BB, ARB and other home cardiac meds. Monitoring Cr closely- currently still at her new baseline -Holding spironolactone while diuresing aggressively with lasix -Tele, I&O's, daily wt, low salt diet, fluid restriction -Will do walking desat test tomorrow and if does well can d/c home either with PRN O2 with activity or no O2 at all with activity #Hyperlipidemia. -C/w Crestor. #Anemia likely 2/2 to MARIA DEL ROSARIO and ACD -H/H at patient's baseline -No s/s of bleeding -C/w ferrous sulfate supplement -CBC daily #A. fib, chronic and rate controlled -C/w CCB, BB, eliquis BID #COPD, not currently in exacerbation - no wheezing, rhonchi -C/w albuterol PRN #DM type II -BS elevated, Started AM levemir today -C/w levemir HS, ISS, AC/HS FS, consistent carb diet #Hx of GERD, PUD -C/w sucralfate, PPI #HTN -C/w home meds # CKD Stage III, over past 3 months -Cr appears to be close to baseline -C/w diuresis, monitor daily labs to see if worsening #DAVIDSON -Can use home Bipap #DVT px -Eliquis BID Resolved issues: #Atypical chest pain DISPOSITION: Walking desat test ordered for tomorrow AM. Cleared for home by PT. Plan is discharge home when medically improved. VS, I&O, 24H, Fishbone Vital Signs/I&O Vital Signs Date Time Temp Pulse Resp B/P (MAP) Pulse Ox O2 Delivery O2 Flow Rate FiO2 07/16/20 14:00 98.2 70 20 141/60 (87) 94 Room Air 07/15/20 14:00 1.0 I&O- Last 24 Hours up to 6 AM 07/16/20 06:00 Intake Total 1570 ml Output Total 1800 ml Balance -230 ml Laboratory Data 24H LABS Laboratory Tests 2 07/15/20 16:38: Bedside Glucose (Misc Panel) 227H 07/15/20 20:04: Bedside Glucose (Misc Panel) 208H 07/16/20 06:20: Nucleated Red Blood Cells % (auto) 0.0, Anion Gap 6L, Glomerular Filtration Rate 27.2L, Calcium Level 8.5L, Total Bilirubin 0.4, Aspartate Amino Transf (AST/SGOT) 24, Alanine Aminotransferase (ALT/SGPT) 25, Alkaline Phosphatase 86, JJ-Ryq-B-Type Natriuretic Peptide 2931H, Total Protein 6.4, Albumin 2.6L, Albumin/Globulin Ratio 0.7L 07/16/20 11:40: Bedside Glucose (Misc Panel) 326H CBC/BMP Laboratory Tests 07/16/20 06:20 Current Medications Current Medications Medications (Trade) Dose Ordered Sig/Tariq Route PRN Reason Start Time Stop Time Status Last Admin Dose Admin Acetaminophen (Tylenol Arthritis Er) 1,300 mg BID PO 07/14/20 21:00 07/16/20 09:02 Albuterol Sulfate (Proventil, Ventolin Hfa) 2 puff QIDP PRN INH SHORTNESS OF BREATH 07/14/20 19:00 Apixaban (Eliquis) 5 mg BID PO 07/14/20 21:00 07/16/20 09:03 Aspirin (Ecotrin) 81 mg DAILY PO 07/15/20 09:00 07/16/20 09:02 Bisoprolol Fumarate (Zebeta) 5 mg DAILY PO 07/15/20 09:00 07/16/20 09:03 Colesevelam HCl (WelChoL) 625 mg BID PO 07/14/20 21:00 07/16/20 09:02 Dextrose (Dextrose 50%) 25 ml ASDIRECTED PRN IV SEE LABEL COMMENTS 07/14/20 19:00 Diltiazem HCl (Cardizem) 30 mg BID PO 07/14/20 21:00 07/16/20 09:02 Ferrous Sulfate (Ferrous Sulfate) 650 mg Q2D PO 07/15/20 09:00 07/15/20 08:45 Fluticasone Propionate (Flonase 0.05% Nasal [place]) 1 spray DAILYPRN PRN NA NASAL CONGESTION 07/14/20 19:00 Furosemide (LASIX injection) 40 mg BID IV 07/14/20 21:00 07/14/20 19:02 DC Furosemide (LASIX injection) 50 mg BID IV 07/14/20 21:00 07/15/20 11:14 DC 07/15/20 08:44 Furosemide (LASIX injection) 50 mg BID@0900,1700 IV 07/16/20 09:00 07/16/20 09:02 Furosemide (LASIX injection) 60 mg BID IV 07/15/20 21:00 07/16/20 08:29 DC 07/15/20 20:41 Gabapentin (Neurontin) 300 mg BID PO 07/14/20 21:00 07/16/20 09:03 Glucagon (Glucagon) 1 mg ASDIRECTED PRN SC SEE LABEL COMMENTS 07/14/20 19:00 Glucose (Glucose) 16 GM ASDIRECTED PRN PO SEE LABEL COMMENTS 07/14/20 19:00 Heparin Sodium (Porcine) (Heparin) 5,000 units Q12H SC 07/14/20 21:00 Cancel Home Med (Med Rec Complete!) ASDIRECTED XX 07/14/20 18:45 07/14/20 18:51 DC Insulin Detemir (Levemir Insulin) 8 units QAM SC 07/16/20 09:00 07/16/20 09:04 Insulin Detemir (Levemir Insulin) 10 units QPM SC 07/14/20 21:00 07/15/20 20:43 Insulin Human Lispro (HumaLOG INSULIN) SEE PROTOCOL TABLE AC SC 07/15/20 07:30 07/16/20 13:33 Insulin Human Lispro (HumaLOG INSULIN) SEE PROTOCOL TABLE QHS FL 07/14/20 21:00 07/14/20 22:56 Lactic Acid (Lac-Hydrin 12% Lotion) APPLY TO FEET BIDP PRN TOP DRY SKIN 07/14/20 19:00 Metoclopramide HCl (Reglan) 5 mg ACHS PO 07/14/20 21:00 07/16/20 13:33 Nitroglycerin (Nitrostat (1/ 150)) 0.4 mg Q5MP PRN SL CHEST PAIN 07/15/20 15:30 Potassium Chloride (Micro-K Extencaps) 10 meq DAILY PO 07/15/20 09:00 07/16/20 09:03 Rosuvastatin Calcium (Crestor) 20 mg DAILY PO 07/15/20 09:00 07/16/20 09:03 Sucralfate (Carafate) 1 gm BID PO 07/14/20 21:00 12/6/20 09:03 Allergies Coded Allergies: Sulfa (Sulfonamide Antibiotics) (Verified Allergy, Severe, anaphylaxis, rash, 04/30/19) neomycin (Verified Allergy, Intermediate, rash, 04/30/19) ramipril (Verified Adverse Reaction, Intermediate, cough, 04/30/19) Dana Calles MD Jul 16, 2020 15:53
[2020-07-16 20:10] VITALS: BP 140/70
[2020-07-17 06:00] VITALS: BP 130/66
[2020-07-17 06:21] LABS: HEMATOCRIT 30.9 % (36.0-47.0); HEMOGLOBIN 9.8 g/dl (12.0-15.5); MEAN CORPUSCULAR HEMOGLOBIN 28.3 pg (27.0-33.0); MEAN CORPUSCULAR HGB CONC 31.7 g/dl (32.0-36.5); MEAN CORPUSCULAR VOLUME 89.3 fl (80.0-96.0); PLATELET COUNT, AUTOMATED 188 10^3/uL (150-450); RED BLOOD COUNT 3.46 10^6/uL (4.00-5.40); WHITE BLOOD COUNT 7.1 10^3/uL (4.0-10.0)
[2020-07-17 06:39] LABS: ALBUMIN 2.7 GM/DL (3.2-5.2); BILIRUBIN,TOTAL 0.3 MG/DL (0.2-1.0); CALCIUM LEVEL 8.2 MG/DL (8.8-10.2); CREATININE FOR GFR 1.65 MG/DL (0.55-1.30); GLOMERULAR FILTRATION RATE 32.9 (>45); TOTAL PROTEIN 5.8 GM/DL (6.4-8.2)
[2020-07-17] MEDS: APIXABAN 5 MG TAB (ELIQUIS) PO SCH (09:08)
[2020-07-17] MEDS: ACETAMINOPHEN 650MG ER TAB (TYLENOL ARTHRITIS) PO SCH (09:08)
[2020-07-17] MEDS: POTASSIUM CHLORIDE 10 MEQ SR TABLET PO SCH (09:08)
[2020-07-17] MEDS: FUROSEMIDE 40MG/4ML VIAL (J1940) IV SCH (09:09)
[2020-07-17] MEDS: GABAPENTIN 300 MG CAP PO SCH (09:09)
[2020-07-17] MEDS: METOCLOPRAMIDE 5 MG TAB PO SCH ×2 (09:09→12:10)
[2020-07-17 09:10] VITALS: BP 121/61
[2020-07-17] MEDS: COLESEVELAM 625 MG TAB (WELCHOL) PO SCH (09:10)
[2020-07-17] MEDS: ROSUVASTATIN 10 MG TAB (CRESTOR) PO SCH (09:10)
[2020-07-17] MEDS: HumaLOG INSULIN (NovoLOG) PER UNIT SC SCH ×2 (09:10→12:00)
[2020-07-17] MEDS: bisoproloL fumarate 5 MG TAB PO SCH (09:10)
[2020-07-17] MEDS: FERROUS SULFATE 325MG TAB PO SCH (09:10)
[2020-07-17] MEDS: ASPIRIN 81 MG ENTERIC TAB PO SCH (09:10)
[2020-07-17] MEDS: SUCRALFATE 1 GM TAB PO SCH (09:10)
[2020-07-17] MEDS: LEVEMIR (INSULIN DETEMIR) 1 UNITS/0.01ML SC SCH (09:11)
[2020-07-17] MEDS ORDERED: TORS20TA2 PO (11:26)
--- NOTE | 2020-07-17 17:46 | DS.PDOC ---
Discharge Summary General Date of Admission Jul 14, 2020 at 17:56 Date of Discharge 07/17/20 Attending Physician: Dana Calles MD Discharge Summary HISTORY OF PRESENT ILLNESS: Patient is a 69 y/o F with extensive past medical history listed below who presented with increased shortness of breath, chest pressure over the past one week. The patient states that over the past several months she has had increased difficult A laying flat and has been sleeping in a recliner chair in her home. She is noted fluctuating weight gain and increased episodes of shortness of breath. She has been following with her mva operator and her primary care provider who has modified some of her home medications over that time. She is monitoring her daily weights at home regularly and adjusting her torsemide pills based off of weight gain. She has noticed that over the past week she has gained more than 4 pounds and has been instructed to take chewable the amount of her diuretics at home. She also states that she's had chest pain over this past several days, substernal in location, relating to the left chest at times, 5/10 on pain scale, intermittent. She denies any recent pulling, pushing, lifting out of the ordinary. She denies decreased appetite, lethargy, cough, fevers, abdominal pain, nausea, vomiting, diarrhea, chills. In the emergency room the patient had stable vital signs. She was noted to have hypoxic episode 8688 percent on room air at rest. She was placed on several liters of nasal cannula. WBC 10.2, H/H 10/33. Creatinine was elevated at 1.73; however, after trending over the past several months this appears to be her baseline. The patient states her physicians are watching this closely. BNP was elevated at 3960, troponin negative. Chest x-ray was negative for acute findings. Blood sugar was elevated at 226. Due to the patient continuing to require oxygen the patient was admitted for acute on chronic heart failure with preserved ejection fraction with exacerbation, hypoxia. HOSPITAL COURSE: Patient required increased lasix dose to help with diuresis after 24 hours. After remaining in net neg fluid balance during the remainder of her stay, patient showed signs of improvement in lower ext edema, breathing and did well with walking test. Initially patient had some hypoxia with walking without O2;however, on 07/17/20, she tolerating walking the unit with no O2 supplementation. She was adischarged home with incr dose of torsemide BID for 7 days then she is to resume her prior torsemide dosing BID. She has f/u with her PCP today and is instructed to take discharge paperwork with her to update provider. At time of discharge, she denies chest pain, n/v/d, shortness of breath, fevers or chills. PAST MEDICAL HISTORY: HFpEF, EF 75% Anemia GERD/hiatal hernia Obesity s/p Danielle-En-Y Atrial Fibrillation on eliquis Hypertension Type 2 diabetes, IDDM duodenal ulcer/gastric pouch ulceration/hx of upper GI bleed Esophagitis metaplasia, mild Sinusitism chronic Alergic rhinitis Dyslipidemia COPD DAVIDSON Diabetic retinopathy status post laser eye surgery History of breast cancer status post mastectomy Moderate atheroma in distal aortic aarch and descending thorac aorta Tubular adenoma in colon Lumbar spondylosis PAST SURGICAL HISTORY: Hysterectomy/JENNIFER BSO for noncancerous reasons Gastric bypass in 2006 Bladder elevation in Left breast US guided biopsy 01/20/2015 Left breast lumpectomy 03/2015 Bilateral mastectomy Aortic Valve replacement with bioprosthetic valve in 2010 Cholecystectomy in 07/2018 SOCIAL HISTORY: Prior smoker for 20 years, quit 25-30 years ago. Smoked 3 PPD. Denies alcohol or drug use. PCP- Dr. Bruno Lennon, Membership Sales Advisor- Dr. Ortiz/Kathi. Full code Lives at home. FAMILY HISTORY: mother- liver cancer. at 41 y/o father- CAD, DM . Deceasead at 80 y/o ALLERGIES: Please see below. DISCHARGE MEDICATIONS: Please see below. PHYSICAL EXAMINATION: VS: Please see above CONSTITUTIONAL: No acute distress, AAO x 3 EYES: PERRLA, EOM intact HENT, MOUTH: Normocephalic, atraumatic, moist mucous membranes, NC in place NECK: SUPPLE, no JVD, no lymphadenopathy, no carotid bruit CV: Regular rate and rhythm, S1S2 normal, no murmurs/rubs/gallops RESPIRATORY: CTAB. no rales/rhonchi/wheezes GI: BS positive in 4 quadrants, soft, nontender, nondistended, no rebound or guarding, no organomegaly : Deferred MUSCULOSKELETAL: Normal ROM. No cyanosis, clubbing, swelling, joint deformity, +1 LE extremity edema INTEGUMENTARY: Intact, no rashes, no lesions, no erythema NEUROLOGIC: Cranial Nerves II-XII are intact, no focal deficits PSYCHIATRIC: Mood and affect are normal LABORATORY DATA: Please see below MICROBIOLOGY: Resp panel: Neg for COVID Flu: Neg IMAGING: CXR: Postoperative changes. Mild cardiac enlargement. Otherwise no acute disease. Echocardiogram 04/2020: 1. Severe elevation of estimated right ventricle systolic pressure (at least 74mmHg). Very mild tricuspid regurgitation. Normal right ventricle size with mild right ventricular hypertrophy. Normal RV systolic function. Very mild tricuspid regurgitation. 2. Inferior vena cava plethora. Suggestive of elevated central venous pressure of at least 20 mmHg. 3. Mild left ventricle hypertrophy geometry. Normal regional LV wall motion andwall thickening. Normal LV systolic function. LVEF of 75% by visual estimate. 4. Degenerative calcific aortic valve disease of a 3-cuspid aortic valve. Mild aortic stenosis. No aortic regurgitation. 5. Severe mitral annular calcification. Mild mitral stenosis. No mitral regurgitation. 6. Mild left atrial dilatation. 7. No pericardial effusion. ASSESSMENT: 69 y/o F with PMH of HFpEF (75%), DM type II, HTN, COPD, atrial fib on eliquis admitted for acute on chronic HFpEF with exacerbation, hypoxia. PLAN: # Acute on chronic HFpEF with exacerbation -Decreased LE edema, SOB much improved, no hypoxia with activity during walking test this AM -Remains on RA at rest -CXR: neg -Trop neg -Last echo from 04/2020: above -C/w increased torsemide dose PO BID, CCB, BB, ARB, spironolactone and other home cardiac meds. -After 7 days patient should resume prior torsemide dose as instructed on discharge paperwork. -C/w low salt diet at home -F/u with PCP closely. #Hyperlipidemia. -C/w Crestor. #Anemia likely 2/2 to MARIA DEL ROSARIO and ACD -H/H at patient's baseline -No s/s of bleeding -C/w ferrous sulfate supplement -CBC daily #A. fib, chronic and rate controlled -C/w CCB, BB, eliquis BID #COPD, not currently in exacerbation - no wheezing, rhonchi -C/w albuterol PRN #DM type II -C/w home meds #Hx of GERD, PUD -C/w sucralfate, PPI #HTN -C/w home meds # CKD Stage III, over past 3 months -Cr appears to be close to baseline #DAVIDSON -Can use home Bipap #DVT px -Eliquis BID Resolved issues: #Atypical chest pain DISPOSITION: discharged home to f/u with PCP this afternoon. TIME SPENT ON DISCHARGE: Greater than 30 minutes. Vital Signs/I&Os Vital Signs Date Time Temp Pulse Resp B/P (MAP) Pulse Ox O2 Delivery O2 Flow Rate FiO2 07/17/20 09:10 71 121/61 07/17/20 06:00 96.8 18 97 Nasal Cannula 1.0 I&O- Last 24 Hours up to 6 AM 07/17/20 06:00 Intake Total 1880 ml Output Total 2245 ml Balance -365 ml Laboratory Data Labs 24H Laboratory Tests 2 07/16/20 20:17: Bedside Glucose (Misc Panel) 191H 07/17/20 05:33: Nucleated Red Blood Cells % (auto) 0.0, Anion Gap 6L, Glomerular Filtration Rate 32.9L, Calcium Level 8.2L, Total Bilirubin 0.3, Aspartate Amino Transf (AST/SGOT) 16, Alanine Aminotransferase (ALT/SGPT) 22, Alkaline Phosphatase 91, Total Protein 5.8L, Albumin 2.7L, Albumin/Globulin Ratio 0.9L CBC/BMP Laboratory Tests 07/17/20 05:33 FSBS Laboratory Tests Test 07/16/20 20:17 Range/Units Bedside Glucose (Misc Panel) 191 80-115 MG/DL Discharge Medications Scheduled Acetaminophen (Tylenol Arthritis) 650 Mg Tablet.er, 1,300 MG PO BID, (Reported) Apixaban (Eliquis) 5 Mg Tab, 5 MG PO BID, (Reported) Aspirin (Aspirin EC) 81 Mg Tablet.dr, 81 MG PO DAILY, (Reported) Bisoprolol Fumarate (Bisoprolol Fumarate) 5 Mg Tab, 5 MG PO DAILY, (Reported) Brinzolamide/Brimonidine Tart (Simbrinza 1%-0.2% Eye Drops) 1 Shaniqua Shaniqua, 1 DROP OU BID, (Reported) Calcium Carbonate/Vitamin D3 (Calcium 600-Vit D3 400 Tablet) 1 Each Tablet, 1 TAB PO DAILY, (Reported) Cefadroxil Monohydrate (Cefadroxil) 500 Mg Capsule, 1,000 MG PO BID, (Reported) Colesevelam Hydrochloride (Welchol) 625 Mg Tablet, 625 MG PO BID, (Reported) Diltiazem HCl (Diltiazem HCl) 30 Mg Tab, 30 MG PO BID, (Reported) Ergocalciferol (Vitamin D2) (Vitamin D2) 50,000 Units Cap, 50,000 UNITS PO 1XWK, (Reported) WED EVENING Ferrous Sulfate (Ferrous Sulfate) 325 Mg Tab, 650 MG PO Q2D, (Reported) Gabapentin (Neurontin) 300 Mg Cap, 300 MG PO BID, (Reported) Insulin Aspart (Novolog Flexpen) 100 Unit/Ml Inj, 1 DOSE SC AC, (Reported) PER SLIDING SCALE Insulin Degludec (Tresiba) 100 Unit/1 Ml Vial, 10 UNIT SC QHS, (Reported) Irbesartan (Irbesartan) 75 Mg Tab, 75 MG PO DAILY, (Reported) Metoclopramide Hcl (Reglan) 5 Mg Tab, 5 MG PO ACHS, (Reported) Potassium Chloride (Klor-Con M10) 10 Meq Tabcr, 10 MEQ PO DAILY, (Reported) Rosuvastatin Calcium (Crestor) 20 Mg Tab, 20 MG PO DAILY, (Reported) Spironolactone (Spironolactone) 25 Mg Tab, 25 MG PO DAILY, (Reported) Sucralfate (Sucralfate) 1 Gm Tab, 1 GM PO BID, (Reported) Torsemide (Torsemide) 20 Mg Tablet, 40 MG PO BID Scheduled PRN Albuterol Sulfate (Proair Hfa) 8.5 Gm Hfa.aer.ad, 2 PUFF INH QID PRN for CASPER RTNESS OF BREATH, (Reported) Ammonium Lactate (Ammonium Lactate) 12 % Cre, 1 DOSE TOP BID PRN for DRY SKIN, (Reported) APPLY TO FEET Mometasone Furoate Monohydrate (Nasonex) 120 [place]/17 Gm Naspr, 1 SPRAY NA DAILY PRN for NASAL CONGESTION, (Reported) Allergies Coded Allergies: Sulfa (Sulfonamide Antibiotics) (Verified Allergy, Severe, anaphylaxis, rash, 04/30/19) neomycin (Verified Allergy, Intermediate, rash, 04/30/19) ramipril (Verified Adverse Reaction, Intermediate, cough, 04/30/19) Dana Calles MD Jul 17, 2020 17:46
== END 2020-07-17 12:30 | disposition home or self-care (01) | DRG 291 ==
LOC: M ED 13:31 → M ED INP 17:56 → ENRESERV 18:24 → M MSPAV 22:15
PROVIDERS: ADMIT Internal Medicine; ATTEND Internal Medicine
DX: I13.0 Hypertensive heart and chronic kidney disease with heart failure and stage 1 through stage 4 chronic kidney disease, or unspecified chronic kidney disease (principal); I50.33 Acute on chronic diastolic (congestive) heart failure; I48.20 Chronic atrial fibrillation, unspecified; D50.9 Iron deficiency anemia, unspecified; K44.9 Diaphragmatic hernia without obstruction or gangrene; K21.9 Gastro-esophageal reflux disease without esophagitis; E78.5 Hyperlipidemia, unspecified; J44.9 Chronic obstructive pulmonary disease, unspecified; G47.33 Obstructive sleep apnea (adult) (pediatric); M47.816 Spondylosis without myelopathy or radiculopathy, lumbar region; E11.319 Type 2 diabetes mellitus with unspecified diabetic retinopathy without macular edema; E11.22 Type 2 diabetes mellitus with diabetic chronic kidney disease; N18.30 Chronic kidney disease, stage 3 unspecified; I70.0 Atherosclerosis of aorta; D63.1 Anemia in chronic kidney disease; R07.89 Other chest pain; Z85.3 Personal history of malignant neoplasm of breast; Z98.84 Bariatric surgery status; Z90.13 Acquired absence of bilateral breasts and nipples; Z95.3 Presence of xenogenic heart valve; Z90.49 Acquired absence of other specified parts of digestive tract; Z87.891 Personal history of nicotine dependence; Z20.828 Contact with and (suspected) exposure to other viral communicable diseases; Z79.01 Long term (current) use of anticoagulants; Z79.4 Long term (current) use of insulin; Z79.82 Long term (current) use of aspirin; Z79.899 Other long term (current) drug therapy; Z88.2 Allergy status to sulfonamides; Z88.1 Allergy status to other antibiotic agents; Z88.8 Allergy status to other drugs, medicaments and biological substances

== ENCOUNTER → 2020-07-18 | Outpatient (CLI) | payer MEDICARE, OTHER ==
[2020-07-18 15:59] LABS: CREATININE FOR GFR 1.47 MG/DL (0.55-1.30); GLOMERULAR FILTRATION RATE 37.6 (>45); POTASSIUM SERUM 4.5 MEQ/L (3.5-5.1)
== END ==
LOC: M PLALAB 13:30
PROVIDERS: ATTEND Physician Assistant
DX: I50.32 Chronic diastolic (congestive) heart failure (principal); Z79.01 Long term (current) use of anticoagulants

== ENCOUNTER 2020-08-14 11:02 | Inpatient (IN) | payer MEDICARE, OTHER ==
[~2020-08-14] VITALS: Ht 167.6 cm; Wt 95.1 kg
[2020-08-14] VITALS (12 sets, daily range): BP systolic 114–146; BP diastolic 47–85
[~2020-08-14 11:02] MED LIST changes: +GABA-282 PO; -GABA-843 PO
[2020-08-14 12:00] LABS: BASO % 0.4 % (0.0-1.0); EOS # 0.2 10^3/uL (0.0-0.5); EOS % 1.4 % (0.0-3.0); HEMATOCRIT 28.7 % (36.0-47.0); HEMOGLOBIN 8.5 g/dl (12.0-15.5); LYMPH % 9.8 % (24.0-44.0); MEAN CORPUSCULAR HEMOGLOBIN 28.2 pg (27.0-33.0); MEAN CORPUSCULAR HGB CONC 29.6 g/dl (32.0-36.5); MEAN CORPUSCULAR VOLUME 95.3 fl (80.0-96.0); MONO # 0.7 10^3/uL (0.0-0.8); MONO % 6.7 % (0.0-5.0); NEUTROPHILS # 8.5 10^3/uL (1.5-8.5); NEUTROPHILS % 81.1 % (36.0-66.0); PLATELET COUNT, AUTOMATED 203 10^3/uL (150-450); RED BLOOD COUNT 3.01 10^6/uL (4.00-5.40); WHITE BLOOD COUNT 10.5 10^3/uL (4.0-10.0)
[2020-08-14] MEDS ORDERED: methylPREDNISolone 125MG 2ML VIAL IV ONE (12:15)
[2020-08-14 12:32] LABS: BILIRUBIN,DIRECT 0.2 MG/DL (0.0-0.2); BILIRUBIN,TOTAL 0.7 MG/DL (0.2-1.0); TOTAL PROTEIN 6.2 GM/DL (6.4-8.2)
--- NOTE | 2020-08-14 12:33 | REP ---
INDICATION: DYSPNEA/COUGH. COMPARISON: 07/14/2020 as well as other prior exams. TECHNIQUE: SINGLE PORTABLE AP VIEW OF THE CHEST WAS PERFORMED. FINDINGS: There are underlying chronic interstitial changes bilaterally. Mild patchy infiltrate or atelectasis is seen in the right lung base. There may be some minimal atelectasis or infiltrate in the left lung base. Heart is mildly enlarged. The mediastinal silhouette is unchanged. Multiple sternal wires are present. There are metallic clips in the chest wall bilaterally. IMPRESSION: Mild patchy atelectasis or infiltrate right lung base, and possibly minimally in the left lung base, superimposed on chronic changes. <Electronically signed by Sammy Joyce > 08/14/20 1758
[2020-08-14] MEDS: COMBIVENT RESPIMAT 100-20MCG INHALER 4GM INH SCH ×3 (12:37→13:00)
--- NOTE | 2020-08-14 13:35 | HPEPDOC ---
[facility] Medical History & Physical Date of Admission Aug 14, 2020 Date of Service: Aug 14, 2020 Attending Physician: Dana Calles MD History and Physical HISTORY OF PRESENT ILLNESS: Patient is a 69 y/o F with extensive past medical history listed below who presented with increased shortness of breath, anterior chest pressure over the past several weeks. Patient states pressure is not new, 8/10 at its worst, anteriorly located, at times can radiate to the neck. pressure is worse with activity (i.e. when she goes up the stairs in her home). Associated symptoms to chest pressure includes shortness of breath, nonproductive cough, lightheadedness, dizziness, decreased appetite and weakness that has been worsening over the past several months. She states to have been compliant with her medications at home and follows up regularly with cardiology and her PCP. In the ER, VS showed BP 120-190 mmHg systolic BP. She was placed on 2 L NC as she was originally 80% on RA, improved to 100% after supplementation. CXR could not r/o PNA, atelectasis. Abnormal labs include H&H 8.5/28.7, this has been gradually decreasing over the past 1 year. BNP was elevated at 3647, she always is slightly elevated with a baseline between [id number]. Creatinine was 2.2 and again, after trending her creatinine, her baseline has bumped up this high before. pH 7.317, PCO2 on VBG 64.6. ECG showed atrial fibrillation with an old right bundle branch block, similar to prior on file. Occult blood positive. I discussed the case in detail with the patient's pattern checker, Dr. Ortiz, and we both believe many of her symptoms are likely secondary to worsening anemia possibly secondary to chronic bleed. She has a history of renal ulcer, gastric pouch ulceration and a history of upper GI bleed and is currently on Eliquis and aspirin. A major concern is taking her off of anticoagulation with her history of atrial fibrillation, prosthetic valve and severe pulmonary arterial hypertension as stopping intake regulation would put her at high risk for clot formation. He is recommending stopping aspirin currently and keeping on Alex was wall transfusing and monitoring H&H. I also discussed the case with Dr. Shea, general surgery. He suggests monitoring the patient closely but at this time is nonemergent case where they would do an upper or lower scope. He does think she needs one both upper and lower scoping as outpatient for sure. The patient was admitted for increasing shortness of breath, lethargy likely secondary to chronic anemia likely secondary to slow GI bleed, questionable pneumonia, mild exacerbation of HFpEF. REVIEW OF SYSTEMS: Neg except mentioned above PAST MEDICAL HISTORY: HFpEF, EF 75% Chronic iron deficiency anemia GERD/hiatal hernia Obesity s/p Danielle-En-Y Atrial Fibrillation on eliquis Hypertension Type 2 diabetes, IDDM duodenal ulcer/gastric pouch ulceration/hx of upper GI bleed Esophagitis metaplasia, mild Sinusitis chronic Allergic rhinitis Dyslipidemia COPD DAVIDSON Diabetic retinopathy status post laser eye surgery History of breast cancer status post mastectomy Moderate atheroma in distal aortic arch and descending thoracic aorta Tubular adenoma in colon Lumbar spondylosis Severe pulmonary arterial pressure 74 mmHg Severe pulmonary hypertension Carotid stenosis PAST SURGICAL HISTORY: Hysterectomy/JENNIFER BSO for noncancerous reasons Gastric bypass in 2006 Bladder elevation in Left breast US guided biopsy 01/20/2015 Left breast lumpectomy 03/2015 Bilateral mastectomy Aortic Valve replacement with bioprosthetic valve in 2010 Cholecystectomy in 07/2018 SOCIAL HISTORY: Prior smoker for 20 years, quit 25-30 years ago. Smoked 3 PPD. Denies alcohol or drug use. PCP- Dr. Bruno Lennon, Shot Bagger- Dr. Ortiz/Kathi. Full code Lives at home. FAMILY HISTORY: mother- liver cancer. at 41 y/o father- CAD, DM . at 80 y/o ALLERGIES: Please see below. HOME MEDICATIONS: Please see below. PHYSICAL EXAMINATION: VS: Please see above CONSTITUTIONAL: No acute distress, sitting at edge of bed, AAO x 3 EYES: PERRLA, EOM intact HENT, MOUTH: Normocephalic, atraumatic, moist mucous membranes, NC in place NECK: SUPPLE, no JVD, no lymphadenopathy, no carotid bruit CV: Regular rate and rhythm, S1S2 normal, no murmurs/rubs/gallops RESPIRATORY: Crackles in post lung ocampo-minimal. no rales/rhonchi/wheezes GI: BS positive in 4 quadrants, soft, nontender, nondistended, no rebound or guarding, no organomegaly : Deferred MUSCULOSKELETAL: Normal ROM. No cyanosis, clubbing, swelling, joint deformity, +1-2 pitting lower extremity edema INTEGUMENTARY: Intact, no rashes, no lesions, no erythema NEUROLOGIC: Cranial Nerves II-XII are intact, no focal deficits PSYCHIATRIC: Mood and affect are normal LABORATORY DATA: Please see below MICROBIOLOGY: Resp panel: Neg BCx x 2 sets pending IMAGING: CXR: Mild patchy atelectasis or infiltrate right lung base, and possibly minimally in the left lung base, superimposed on chronic changes. Echocardiogram 04/2020: 1. Severe elevation of estimated right ventricle systolic pressure (at least 74mmHg). Very mild tricuspid regurgitation. Normal right ventricle size with mild right ventricular hypertrophy. Normal RV systolic function. Very mild tricuspid regurgitation. 2. Inferior vena cava plethora. Suggestive of elevated central venous pressure of at least 20 mmHg. 3. Mild left ventricle hypertrophy geometry. Normal regional LV wall motion andwall thickening. Normal LV systolic function. LVEF of 75% by visual estimate. 4. Degenerative calcific aortic valve disease of a 3-cuspid aortic valve. Mild aortic stenosis. No aortic regurgitation. 5. Severe mitral annular calcification. Mild mitral stenosis. No mitral regurgitation. 6. Mild left atrial dilatation. 7. No pericardial effusion. ASSESSMENT: 69 y/o F with extensive past medical history above admitted for inc reasing shortness of breath, lethargy likely secondary to chronic anemia likely secondary to slow GI bleed, questionable pneumonia, mild exacerbation of HFpEF. PLAN: Shortness of breath likely multifactorial 2/2 to worsening chronic anemia, HFpEF with mild exacerbation, ? PNA vs. atelectasis. -Currently saturating well on 2 L NC, will attempt to wean down. Not on home O2 -Please see below for individual treatment plans Chronic iron deficiency anemia likely 2/2 to slow (possibly chronic) GI bleed, on eliquis and ASA at home -Hx of duodenal ulcer/gastric pouch ulceration/hx of upper GI bleed, esophagitis with metaplasia -Last iron levels 34-46 throughout the year of 2019, no documented venofer or iron infusion done -On low dose iron supplement every other day -Discussed in detail with Dr. Ortiz (Cardiology) who is cautious to take patient off Eliquis due to severe pulmonary arterial HTN, CHF, bioprosthetic valve and atrial fibrillation. He is suggesting stopping ASA today but continuing with eliquis to see if this can be tolerated -Curbsided Dr. Shea (general surgery) as well who suggests o/p upper and lower scope if patient remains stable in the hospital and discharged. If worsens, can consult. -Consensus was transfusion of 2 units PRBC, and monitoring CBC q12H while on eliquis and stopping ASA. If bleed worsens, officially consult surgery and stop eliquis. If does not and H/H stabilizes, can likely d/c with f/u with Dr. Shea in clinic to do scopes. -Ensure diuresis with IV lasix between and after last unit of PRBC -F/u anemia w/u. -Starting on ferrous sulfate BID, PPI BID, sucralfate, CLD. If iron low, consider iron infusion this admission Mild acute on chronic HFpEF with exacerbation -BNP 3647, + orthopnea, lower ext swelling, SOB, shortness of breath with chest pain -CXR: above -Trop neg -Last echo from 04/2020: above -C/w torsemide BID, CCB, BB, ARB and other home cardiac meds. Monitoring Cr closely- currently near her baseline -Diurese with 20-40 mg IV lasix between PRBC transfusions -Tele, I&O's, daily wt, IS Q2hrs, fluid restriction Chest pain r/o ACS vs. 2/ to worsening SOB from anemia -No history of CAD -Substernal but also can be across entire anterior chest, intermittent and patient states this is familiar pain -Trop x 1 neg, cycle two more labs -ECG: atrial fib, no new abnormalities when compared to prior -C/w BB daily, CCB BID, nitro PRN. Hold ASA per Dr. Ortiz ? PNA vs. atelectasis on CXR -WBC wnl, afebrile. Low suspicion -CXR above -F/u procalcitonin -Starting on levofloxacin PO, if procalcitonin neg then can likely stop. IS ordered Q2H while awake -F/u BCx and sputum cx if collected CKD Stage III -Cr 2.0 -Cr appears to be close to baseline -C/w diuresis, monitor daily labs to see if worsening -Does not follow with nephrology as o/p A. fib, chronic and rate controlled -C/w CCB, BB, eliquis BID Hyperlipidemia. -C/w Crestor. COPD, not currently in exacerbation -Currently on 2 L NC; however, no wheezing, rhonchi -Received methylpred in ER -C/w home meds DM type II -BS 272 -C/w levemir HS, ISS, AC/HS FS, consistent carb diet #HTN -C/w home meds DAVIDSON -Can use home Bipap Hx of GERD, PUD -C/w sucralfate, PPI but BID DVT px -Eliquis BID, scd/teds DISPOSITION: Admitted as acute inpatient. PT/OT. Plan is discharge home when medically improved. Vital Signs Vital Signs Date Time Temp Pulse Resp B/P (MAP) Pulse Ox O2 Delivery O2 Flow Rate FiO2 08/14/20 11:24 08/14/20 11:24 75 26 100 Nasal Cannula 2.0 08/14/20 11:04 96.7 Laboratory Data Labs 24H Laboratory Tests 2 08/14/20 11:33: Immature Granulocyte % (Auto) 0.6, Neutrophils (%) (Auto) 81.1H, Lymphocytes (%) (Auto) 9.8L, Monocytes (%) (Auto) 6.7H, Eosinophils (%) (Auto) 1.4, Basophils (% ) (Auto) 0.4, Neutrophils # (Auto) 8.5, Lymphocytes # (Auto) 1.0L, Monocytes # (Auto) 0.7, Eosinophils # (Auto) 0.2, Basophils # (Auto) 0.0, Nucleated Red Blood Cells % (auto) 0.2H, Total Bilirubin 0.7, Direct Bilirubin 0.2, Aspartate Amino Transf (AST/SGOT) 17, Alanine Aminotransferase (ALT/SGPT) 17, Alkaline Phosphatase 106, Total Protein 6.2L, Albumin 3.0L, Albumin/Globulin Ratio 0.9L 08/14/20 11:37: XO-Wsw-V-Type Natriuretic Peptide 3647H 08/14/20 11:49: POC Glucose (Misc Panel) 248H, POC Sodium (Misc Panel) 137, POC Potassium (Misc Panel) 3.6, POC Chloride (Misc Panel) 96L, POC Total CO2 (Misc Panel) 31.0H, POC Blood Urea Nitrogen (Misc Panel 51H, POC Ionized Calcium (Misc Panel) 4.5, POC Creatinine (Misc Panel) 2.2H, POC Hematocrit (Misc Panel) 25.0L 08/14/20 11:55: POC Troponin I (Misc) 0.04 08/14/20 13:00: POC pH (Misc Panel) 7.317L, POC Base Excess (Misc Panel) 7.0H, POC Saturated Percent O2 (Misc) 96, POC pO2 (Misc Panel) 94.0, POC pCO2 (Misc Panel) 64.6*H, POC HCO3 (Misc Panel) 33.1H, POC Total CO2 (Misc Panel) 35.0H CBC/BMP Laboratory Tests 08/14/20 11:33 Microbiology Microbiology 08/14/20 Respiratory Virus Panel (PCR) (ZANE) - Final, Complete 08/14/20 Blood Culture, Received Pending 08/14/20 Blood Culture, Received Pending Home Medications Scheduled Acetaminophen (Tylenol Arthritis) 650 Mg Tablet.er, 1,300 MG PO BID Apixaban (Eliquis) 5 Mg Tab, 5 MG PO BID Aspirin (Aspirin EC) 81 Mg Tablet.dr, 81 MG PO DAILY Bisoprolol Fumarate (Bisoprolol Fumarate) 5 Mg Tab, 5 MG PO DAILY Brinzolamide/Brimonidine Tart (Simbrinza 1%-0.2% Eye Drops) 1 Shaniqua Shaniqua, 1 DROP OU BID Calcium Carbonate/Vitamin D3 (Calcium 600-Vit D3 400 Tablet) 1 Each Tablet, 1 TAB PO DAILY Cefadroxil Monohydrate (Cefadroxil) 500 Mg Capsule, 1,000 MG PO BID Colesevelam Hydrochloride (Welchol) 625 Mg Tablet, 625 MG PO BID Diltiazem HCl (Diltiazem HCl) 30 Mg Tab, 30 MG PO BID Ergocalciferol (Vitamin D2) (Vitamin D2) 50,000 Units Cap, 50,000 UNITS PO 1XWK WEDNES EVENING Ferrous Sulfate (Ferrous Sulfate) 325 Mg Tab, 650 MG PO Q2D Gabapentin (Neurontin) 300 Mg Cap, 300 MG PO BID Insulin Aspart (Novolog Flexpen) 100 Unit/Ml Inj, 1 DOSE SC AC PER SLIDING SCALE Insulin Degludec (Tresiba) 100 Unit/1 Ml Vial, 10 UNIT SC QHS Irbesartan (Irbesartan) 75 Mg Tab, 75 MG PO DAILY Metoclopramide Hcl (Reglan) 5 Mg Tab, 5 MG PO ACHS Potassium Chloride (Klor-Con M10) 10 Meq Tabcr, 10 MEQ PO DAILY Rosuvastatin Calcium (Crestor) 20 Mg Tab, 20 MG PO DAILY Spironolactone (Spironolactone) 25 Mg Tab, 25 MG PO DAILY Sucralfate (Sucralfate) 1 Gm Tab, 1 GM PO BID Torsemide (Torsemide) 20 Mg Tablet, 40 MG PO BID Scheduled PRN Albuterol Sulfate (Proair Hfa) 8.5 Gm Hfa.aer.ad, 2 PUFF INH QID PRN for SHORTNESS OF BREATH Ammonium Lactate (Ammonium Lactate) 12 % Cre, 1 DOSE TOP BID PRN for DRY SKIN APPLY TO FEET Mometasone Furoate Monohydrate (Nasonex) 120 [place]/17 Gm Naspr, 1 SPRAY NA DAILY PRN for NASAL CONGESTION Allergies Coded Allergies: Sulfa (Sulfonamide Antibiotics) (Verified Allergy, Severe, anaphylaxis, rash, 04/30/19) neomycin (Verified Allergy, Intermediate, rash, 04/30/19) ramipril (Verified Adverse Reaction, Intermediate, cough, 04/30/19) A-FIB/CHADSVASC A-FIB History Current/History of A-Fib/PAF?: Yes Current PO Anticoag Therapy: Yes Age/Risk Factor Scoring CHADSVASC: CHADSVASC Response (Comments) Value Age Risk Factor Age 65-74 years old 1 Gender Risk Factor Female 1 Hx of CHF Yes 1 Hx of HTN No 0 Hx of Stroke/TIA/or VTE No 0 Hx of Diabetes Yes 1 Hx of Vascular Disease Yes 1 Total 5 Treatment Treatment ordered: Other Other anticoagulant ordered: Dana Cheek MD Aug 14, 2020 13:35
[2020-08-14 13:58] LABS: CALCIUM LEVEL 8.3 MG/DL (8.8-10.2); CREATININE FOR GFR 2.05 MG/DL (0.55-1.30); GLOMERULAR FILTRATION RATE 25.6 (>45); POTASSIUM SERUM 3.8 MEQ/L (3.5-5.1)
[2020-08-14] MEDS ORDERED: FUROSEMIDE 40MG/4ML VIAL (J1940) IV ONE (14:00)
[2020-08-14] MEDS ORDERED: LevoFLOXacin 500 MG TABLET PO ONE (15:00)
[2020-08-14] MEDS ORDERED: MIRALAX *UNIT DOSE* 17GM PACKET PO PRN (15:15)
[2020-08-14] MEDS ORDERED: NITROGLYCERIN 0.4 MG SUBL TABLET SL PRN (15:15)
[2020-08-14 15:26] LABS: TROPONIN I 0.03 NG/ML (< 0.10)
[2020-08-14] MEDS ORDERED: GLUCOSE 4GM CHEW TABLET PO PRN (15:30)
[2020-08-14] MEDS ORDERED: DEXTROSE 50% 50 ML SYRINGE IV PRN (15:30)
[2020-08-14] MEDS ORDERED: GLUCAGON INJ 1MG VIAL SC PRN (15:30)
[2020-08-14 15:37] LABS: HEMOGLOBIN 8.3 g/dl (12.0-15.5); MEAN CORPUSCULAR HEMOGLOBIN 28.3 pg (27.0-33.0); MEAN CORPUSCULAR HGB CONC 29.6 g/dl (32.0-36.5); MEAN CORPUSCULAR VOLUME 95.6 fl (80.0-96.0); PLATELET COUNT, AUTOMATED 190 10^3/uL (150-450); RED BLOOD COUNT 2.93 10^6/uL (4.00-5.40); WHITE BLOOD COUNT 10.4 10^3/uL (4.0-10.0)
[2020-08-14] MEDS ORDERED: TORS10TA3 PO (15:45)
[2020-08-14] MEDS ORDERED: ALBUTEROL 90 MCG/ACT 8GM HFA INHALER INH PRN (18:15)
[2020-08-14] MEDS ORDERED: FUROSEMIDE 20MG/2ML VIAL (J1940) IV ONE ×2 (18:15→19:30)
[2020-08-14] MEDS ORDERED: LACTIC ACID 12% LOTION 225 GM BTL TOP PRN (18:15)
[2020-08-14] MEDS ORDERED: FLUTICASONE PROP 0.05% NASAL SPRAY 16 GM (FLONASE) PRN (18:15)
[2020-08-14] MEDS ORDERED: PILL CUTTER 1 EACH XX PRN (18:30)
[2020-08-14] MEDS: HumaLOG INSULIN (NovoLOG) PER UNIT SC SCH ×2 (18:48→20:07)
[2020-08-14] MEDS: SENNA 8.6 MG TAB (SENOKOT) PO SCH (20:07)
[2020-08-14] MEDS: LEVEMIR (INSULIN DETEMIR) 1 UNITS/0.01ML SC SCH (20:07)
[2020-08-14] MEDS: COLESEVELAM 625 MG TAB (WELCHOL) PO SCH (20:07)
[2020-08-14] MEDS: GABAPENTIN 300 MG CAP PO SCH (20:08)
[2020-08-14] MEDS: APIXABAN 5 MG TAB (ELIQUIS) PO SCH (20:08)
[2020-08-14] MEDS: FERROUS SULFATE 325MG TAB PO SCH (20:08)
[2020-08-14] MEDS: ACETAMINOPHEN 650MG ER TAB (TYLENOL ARTHRITIS) PO SCH (20:08)
[2020-08-14] MEDS: DOCUSATE SODIUM 100MG CAPSULE PO SCH (20:08)
[2020-08-15 00:14] VITALS: BP 119/58
[2020-08-15 03:27] LABS: HEMATOCRIT 33.8 % (36.0-47.0); HEMOGLOBIN 10.2 g/dl (12.0-15.5); MEAN CORPUSCULAR HEMOGLOBIN 27.4 pg (27.0-33.0); MEAN CORPUSCULAR HGB CONC 30.2 g/dl (32.0-36.5); MEAN CORPUSCULAR VOLUME 90.9 fl (80.0-96.0); PLATELET COUNT, AUTOMATED 171 10^3/uL (150-450); RED BLOOD COUNT 3.72 10^6/uL (4.00-5.40); WHITE BLOOD COUNT 7.7 10^3/uL (4.0-10.0)
[2020-08-15 03:55] LABS: ALBUMIN 2.9 GM/DL (3.2-5.2); BILIRUBIN,TOTAL 0.8 MG/DL (0.2-1.0); CREATININE FOR GFR 1.9 MG/DL (0.55-1.30); POTASSIUM SERUM 4.4 MEQ/L (3.5-5.1); TOTAL PROTEIN 5.9 GM/DL (6.4-8.2)
[2020-08-15] MEDS: LevoFLOXacin 250 MG TABLET PO SCH (05:04)
--- NOTE | 2020-08-15 06:11 | ECGEPIP ---
[facility] - ED Test Date: 2020-08-14 Pat Name: ELODIA MALDONADO Department: Room: - Gender: Female Geographic Information Scientist: JUAN ALBERTO : 1950 Requested By: Jillian Colunga Order Number: [id number] Reading MD: Jillian Colunga Measurements Intervals [place] Rate: 68 P: UT: 0 QRS: 108 QRSD: 144 T: 12 QT: 461 QTc: 492 Interpretive Statements ATRIAL FIBRILLATION INDETERMINATE AXIS RIGHT BUNDLE BRANCH BLOCK 07/14/20 RATE INCREASED MORE PRONOUNCED ST T CHANGES VS NONSPECIFIC ST T WAVE CHANGES - TO CONSIDER ISCHEMIA CLINICAL CORRELATION ADVISED Electronically Signed on 08-15-2020 6:10:54 EST by Jillian Colunga
[2020-08-15] MEDS: HumaLOG INSULIN (NovoLOG) PER UNIT SC SCH ×4 (08:52→21:00)
[2020-08-15] MEDS: ACETAMINOPHEN 650MG ER TAB (TYLENOL ARTHRITIS) PO SCH ×2 (08:52→21:38)
[2020-08-15] MEDS: ROSUVASTATIN 10 MG TAB (CRESTOR) PO SCH (08:53)
[2020-08-15] MEDS: DOCUSATE SODIUM 100MG CAPSULE PO SCH ×2 (08:53→21:38)
[2020-08-15] MEDS: APIXABAN 5 MG TAB (ELIQUIS) PO SCH ×2 (08:59→21:38)
[2020-08-15] MEDS: FERROUS SULFATE 325MG TAB PO SCH ×2 (08:59→21:38)
[2020-08-15] MEDS: TORSEMIDE 10 MG TABLET PO SCH ×2 (08:59→16:55)
[2020-08-15] MEDS: COLESEVELAM 625 MG TAB (WELCHOL) PO SCH ×2 (08:59→21:38)
[2020-08-15] MEDS: GABAPENTIN 300 MG CAP PO SCH ×2 (08:59→21:38)
[2020-08-15] MEDS: bisoproloL fumarate 5 MG TAB PO SCH (09:00)
[2020-08-15] MEDS: POTASSIUM CHLORIDE 10 MEQ SR TABLET PO SCH (09:00)
[2020-08-15] MEDS: SPIRONOLACTONE 25 MG TAB PO SCH (09:00)
[2020-08-15] MEDS: IRBESARTAN 150MG TAB PO SCH (09:29)
[2020-08-15 09:36] LABS: CK-MB VALUE MASS 1.7 NG/ML (<3.6); MB/CK RELATIVE INDEX 4.72 (< OR =4); TROPONIN I 0.03 NG/ML (< 0.10)
--- NOTE | 2020-08-15 11:13 | IPNPDOC ---
Text Note Date of Service The patient was seen on 08/15/20. NOTE Subjective: Patient seen and examined at bedside. No acute overnight events reported. This morning it was noted that she did desaturate to 86% on ambulation but recovered spontaneously. Patient has no new medical complaints this morning. She states that she has been on oxygen in the past. She does not have a medicinal plant picker. She states she has had a colonoscopy several years ago with no acute findings. Objective: Gen.: No acute distress, sitting comfortably in chair HEENT: Normocephalic, atraumatic. Lungs: Clear to auscultation bilaterally. Heart: Positive S1-S2, regular rate and rhythm. Abdomen: Obese, nontender, positive bowel sounds. Extremities: Trace peripheral edema ASSESSMENT: 69 F with extensive past medical history above admitted for increasing shortness of breath, lethargy likely secondary to chronic anemia likely secondary to slow GI bleed, questionable pneumonia, mild exacerbation of HFpEF. PLAN: #Shortness of breath likely multifactorial 2/2 to worsening chronic anemia, HFpEF with mild exacerbation, ? PNA vs. atelectasis. -Currently saturating well on 2 L NC, will attempt to wean down. Not on home O2 -Please see below for individual treatment plans #anemia - multifactorial - Chronic iron deficiency anemia, possible GI bleed - on eliquis and ASA at home -Hx of duodenal ulcer/gastric pouch ulceration/hx of upper GI bleed, esophagitis with metaplasia -Last iron levels 34-46 throughout the year of 2019, no documented venofer or iron infusion done -On low dose iron supplement every other day -Discussed in detail with Dr. Ortiz (Cardiology) who is cautious to take patient off Eliquis due to severe pulmonary arterial HTN, CHF, bioprosthetic valve and atrial fibrillation. He is suggesting stopping ASA today but continuing with eliquis to see if this can be tolerated -Curbsided Dr. Shea (general surgery) as well who suggests o/p upper and lower scope if patient remains stable in the hospital and discharged. If worsens, can consult. -Consensus was transfusion of 2 units PRBC, and monitoring CBC q12H while on eliquis and stopping ASA. If bleed worsens, officially consult surgery and stop eliquis. If does not and H/H stabilizes, can likely d/c with f/u with Dr. Shea in clinic to do scopes. - s/p 2 units PRBC -Started on ferrous sulfate BID, PPI BID, sucralfate, CLD #Mild acute on chronic HFpEF with exacerbation -BNP 3647, + orthopnea, lower ext swelling, SOB, shortness of breath with chest pain -CXR: above -Trop neg -Last echo from 04/2020: above -C/w torsemide BID, CCB, BB, ARB and other home cardiac meds. Monitoring Cr closely- currently near her baseline -Tele, I&O's, daily wt, IS Q2hrs, fluid restriction #Chest pain r/o ACS vs. 2/ to worsening SOB from anemia -No history of CAD -Substernal but also can be across entire anterior chest, intermittent and patient states this is familiar pain -Trop x 1 neg, cycle two more labs -ECG: atrial fib, no new abnormalities when compared to prior -C/w BB daily, CCB BID, nitro PRN. Hold ASA per Dr. Ortiz #? PNA vs. atelectasis on CXR -WBC wnl, afebrile. Low suspicion -CXR above -F/u procalcitonin -Starting on levofloxacin PO, if procalcitonin neg then can likely stop. IS ordered Q2H while awake -F/u BCx and sputum cx if collected #CKD Stage III -Cr 2.0 -Cr appears to be close to baseline -C/w diuresis, monitor daily labs to see if worsening -Does not follow with nephrology as o/p #A. fib, chronic and rate controlled -C/w CCB, BB, eliquis BID #Hyperlipidemia. -C/w Crestor. #COPD, not currently in exacerbation -Currently on 2 L NC; however, no wheezing, rhonchi -Received methylpred in ER -C/w home meds #DM type II -BS 272 -C/w levemir HS, ISS, AC/HS FS, consistent carb diet #HTN -C/w home meds #DAVIDSON -Can use home Bipap #Hx of GERD, PUD -C/w sucralfate, PPI but BID #DVT px -Eliquis BID, scd/teds DISPOSITION: Pending clinical improvement, serial H/H, advance diet; will need colonoscopy/EGD - to decide inpatient vs outpatient VS,Fishbone, I+O VS, Fishbone, I+O Laboratory Tests 08/14/20 11:33 08/14/20 15:17 08/15/20 03:20 Vital Signs Date Time Temp Pulse Resp B/P (MAP) Pulse Ox O2 Delivery O2 Flow Rate FiO2 08/15/20 09:29 109/44 08/15/20 09:00 65 08/15/20 06:00 96.3 17 96 Nasal Cannula 08/15/20 00:14 1.0 I&O- Last 24 Hours up to 6 AM 08/15/20 06:00 Intake Total 1400 ml Output Total 650 ml Balance 750 ml BIRDIE NGUYEN MD Aug 15, 2020 11:13
[2020-08-15 14:00] VITALS: BP 130/66
[2020-08-15 18:21] LABS: HEMATOCRIT 40.1 % (36.0-47.0); HEMOGLOBIN 11.1 g/dl (12.0-15.5)
[2020-08-15] MEDS: LEVEMIR (INSULIN DETEMIR) 1 UNITS/0.01ML SC SCH (21:00)
[2020-08-15] MEDS: SENNA 8.6 MG TAB (SENOKOT) PO SCH (21:38)
[2020-08-16] VITALS (7 sets, daily range): BP systolic 110–149; BP diastolic 52–58
[2020-08-16 03:19] LABS: HEMATOCRIT 34.6 % (36.0-47.0); HEMOGLOBIN 10.2 g/dl (12.0-15.5); MEAN CORPUSCULAR HEMOGLOBIN 27.3 pg (27.0-33.0); MEAN CORPUSCULAR HGB CONC 29.5 g/dl (32.0-36.5); MEAN CORPUSCULAR VOLUME 92.5 fl (80.0-96.0); PLATELET COUNT, AUTOMATED 195 10^3/uL (150-450); RED BLOOD COUNT 3.74 10^6/uL (4.00-5.40); WHITE BLOOD COUNT 12.3 10^3/uL (4.0-10.0)
[2020-08-16 04:02] LABS: ALBUMIN 2.9 GM/DL (3.2-5.2); BILIRUBIN,TOTAL 0.4 MG/DL (0.2-1.0); CALCIUM LEVEL 8.3 MG/DL (8.8-10.2); CREATININE FOR GFR 1.67 MG/DL (0.55-1.30); GLOMERULAR FILTRATION RATE 32.5 (>45); TOTAL PROTEIN 5.7 GM/DL (6.4-8.2)
[2020-08-16] MEDS: LevoFLOXacin 250 MG TABLET PO SCH (05:22)
[2020-08-16] MEDS: HumaLOG INSULIN (NovoLOG) PER UNIT SC SCH ×4 (07:30→21:15)
[2020-08-16] MEDS: COLESEVELAM 625 MG TAB (WELCHOL) PO SCH ×2 (10:20→20:59)
[2020-08-16] MEDS: IRBESARTAN 150MG TAB PO SCH (10:21)
[2020-08-16] MEDS: bisoproloL fumarate 5 MG TAB PO SCH (10:21)
[2020-08-16] MEDS: SPIRONOLACTONE 25 MG TAB PO SCH (10:21)
[2020-08-16] MEDS: DOCUSATE SODIUM 100MG CAPSULE PO SCH ×2 (10:22→20:59)
[2020-08-16] MEDS: ROSUVASTATIN 10 MG TAB (CRESTOR) PO SCH (10:22)
[2020-08-16] MEDS: POTASSIUM CHLORIDE 10 MEQ SR TABLET PO SCH (10:23)
[2020-08-16] MEDS: GABAPENTIN 300 MG CAP PO SCH ×2 (10:23→21:00)
[2020-08-16] MEDS: FERROUS SULFATE 325MG TAB PO SCH ×2 (10:23→20:59)
[2020-08-16] MEDS: TORSEMIDE 10 MG TABLET PO SCH ×2 (10:23→17:43)
[2020-08-16] MEDS: APIXABAN 5 MG TAB (ELIQUIS) PO SCH ×2 (10:23→21:00)
[2020-08-16] MEDS: ACETAMINOPHEN 650MG ER TAB (TYLENOL ARTHRITIS) PO SCH ×2 (10:24→21:01)
--- NOTE | 2020-08-16 11:44 | IPNPDOC ---
Text Note Date of Service The patient was seen on 08/16/20. NOTE Subjective: Patient seen and examined at bedside. No acute overnight events reported. No new medical complaints. Objective: Gen.: No acute distress, lying comfortably in bed HEENT: Normocephalic, atraumatic. Lungs: Clear to auscultation bilaterally. Heart: Positive S1-S2, regular rate and rhythm. Abdomen: Obese, nontender, positive bowel sounds. Extremities: Trace peripheral edema ASSESSMENT: 69 F with extensive past medical history above admitted for increasing shortness of breath, lethargy likely secondary to chronic anemia likely secondary to slow GI bleed, questionable pneumonia, mild exacerbation of HFpEF. PLAN: #Shortness of breath likely multifactorial 2/2 to worsening chronic anemia, HFpEF with mild exacerbation, ? PNA vs. atelectasis. -Currently saturating well on 2 L NC, will attempt to wean down. Not on home O2 -Please see below for individual treatment plans #anemia - multifactorial - Chronic iron deficiency anemia, possible GI bleed - on gisela iain and ASA at home -Hx of duodenal ulcer/gastric pouch ulceration/hx of upper GI bleed, esophagitis with metaplasia -Last iron levels 34-46 throughout the year of 2019, no documented venofer or ir on infusion done -On low dose iron supplement every other day -Discussed in detail with Dr. Ortiz (Cardiology) who is cautious to take patient off Eliquis due to severe pulmonary arterial HTN, CHF, bioprosthetic valve and atrial fibrillation. He is suggesting stopping ASA today but continuing with eliquis to see if this can be tolerated - s/p 2 units PRBC -Started on ferrous sulfate BID, PPI BID, sucralfate, CLD #Mild acute on chronic HFpEF with exacerbation -BNP 3647, + orthopnea, lower ext swelling, SOB, shortness of breath with chest pain -CXR: above -Trop neg -Last echo from 04/2020: above -C/w torsemide BID, CCB, BB, ARB and other home cardiac meds. Monitoring Cr closely- currently near her baseline -Tele, I&O's, daily wt, IS Q2hrs, fluid restriction #Chest pain r/o ACS vs. 2/2 to worsening SOB from anemia -No history of CAD -Substernal but also can be across entire anterior chest, intermittent and patient states this is familiar pain -Trop x 1 neg, cycle two more labs -ECG: atrial fib, no new abnormalities when compared to prior -C/w BB daily, CCB BID, nitro PRN. Hold ASA per Dr. Ortiz #? PNA vs. atelectasis on CXR -WBC wnl, afebrile. Low suspicion -CXR above -F/u procalcitonin -Starting on levofloxacin PO, if procalcitonin neg then can likely stop. IS ordered Q2H while awake -F/u BCx and sputum cx if collected #CKD Stage III -Cr 2.0 -Cr appears to be close to baseline -C/w diuresis, monitor daily labs to see if worsening -Does not follow with nephrology as o/p #A. fib, chronic and rate controlled -C/w CCB, BB, eliquis BID #Hyperlipidemia. -C/w Crestor. #COPD, not currently in exacerbation -Currently on 2 L NC; however, no wheezing, rhonchi -Received methylpred in ER -C/w home meds #DM type II -BS 272 -C/w levemir HS, ISS, AC/HS FS, consistent carb diet #HTN -C/w home meds #DAVIDSON -Can use home Bipap #Hx of GERD, PUD -C/w sucralfate, PPI but BID #DVT px -Eliquis BID, scd/teds DISPOSITION: plan for EGD today, anticipating discharge in 24 hours pending results of EGD VS,Sarojbone, I+O VS, Fishbone, I+O Laboratory Tests 08/15/20 18:13 08/16/20 03:14 Vital Signs Date Time Temp Pulse Resp B/P (MAP) Pulse Ox O2 Delivery O2 Flow Rate FiO2 08/16/20 10:22 80 124/57 08/16/20 06:00 97.9 19 92 08/15/20 14:00 Room Air 08/15/20 00:14 1.0 I&O- Last 24 Hours up to 6 AM 08/16/20 05:59 Intake Total 600 ml Output Total 725 ml Balance -125 ml BIRDIE NGUYEN MD Aug 16, 2020 11:44
[2020-08-16] MEDS ORDERED: MIDAZOLAM INJ 2MG/2ML VIAL (J2250 PER 1MG) As Ordered ONE (13:54)
[2020-08-16] MEDS ORDERED: LIDOCAINE 2% 100MG/5ML SDV (FOR ANES.) As Ordered ONE (13:54)
[2020-08-16] MEDS ORDERED: propofoL 200 MG/20 ML VIAL As Ordered ONE (13:54)
[2020-08-16] MEDS ORDERED: fentaNYL 100 MCG/2 ML INJECTION (J3010) As Ordered ONE (13:55)
--- NOTE | 2020-08-16 14:50 | IPNPDOC ---
Text Note Date of Service The patient was seen on 08/16/20. NOTE Patient for upper endoscopy today. She came in for symptomatic anemia s/p [place] sfusion of 2 u prbc. She is on eliquis for afib and bioprosthetic valve and is continued on it based on her cardiologists rcommendation. Denies any abdominal pain. Had black soft, semiformed stool last night, prior bm was 4 days ago was solid. She has previous gastric bypass On exam comfortable mild pale palpebral conjunctivae abdomen soft, nondistended, nontender labs reviewed hgb/hct stable impressiona nd plan VS,Fishbone, I+O VS, Fishbone, I+O Laboratory Tests 08/15/20 18:13 08/16/20 03:14 Vital Signs Date Time Temp Pulse Resp B/P (MAP) Pulse Ox O2 Delivery O2 Flow Rate FiO2 08/16/20 10:22 80 124/57 08/16/20 06:00 97.9 19 92 08/15/20 14:00 Room Air 08/15/20 00:14 1.0 I&O- Last 24 Hours up to 6 AM 08/16/20 06:00 Intake Total 600 ml Output Total 900 ml Balance -300 ml SAHIL QUESADA MD Aug 16, 2020 14:50
--- NOTE | 2020-08-16 15:10 | ROOR ---
Patient Name: Moira Benitez Procedure Date: 08/16/2020 2:44 PM Date of : 1950 Age: 69 Gender: Female Note Status: Finalized Procedure: Upper GI endoscopy Indications: Iron deficiency anemia secondary to chronic blood loss Providers: Charly Balderas MD Referring MD: 2. Inpatient 2. Inpatient Requesting Provider: Medicines: Monitored Anesthesia Care Complications: No immediate complications. Procedure: Pre-Anesthesia Assessment: - Prior to the procedure, a History and Physical was performed, and patient medications and allergies were reviewed. The patient is competent. The risks and benefits of the procedure and the sedation options and risks were discussed with the patient. All questions were answered and informed consent was obtained. Patient identification and proposed procedure were verified by the physician, the nurse and the sound editor in the procedure room. Mental Status Examination: alert and oriented. Airway Examination: normal oropharyngeal airway and neck mobility. Respiratory Examination: clear to auscultation. CV Examination: irregularly irregular rate and rhythm. Prophylactic Antibiotics: The patient does not require prophylactic antibiotics. Prior Anticoagulants: The patient has taken Eliquis (apixaban), last dose was day of procedure. ASA Grade Assessment: III - A patient with severe systemic disease. After reviewing the risks and benefits, the patient was deemed in satisfactory condition to undergo the procedure. The anesthesia plan was to use monitored anesthesia care (MAC). Immediately prior to administration of medications, the patient was re-assessed for adequacy to receive sedatives. The heart rate, respiratory rate, oxygen saturations, blood pressure, adequacy of pulmonary ventilation, and response to care were monitored throughout the procedure. The physical status of the patient was re-assessed after the procedure. The Endoscope was introduced through the mouth, and advanced to the efferent jejunal loop. The upper GI endoscopy was accomplished without difficulty. The patient tolerated the procedure well. Findings: The examined esophagus was normal. Evidence of a gastric bypass was found. A gastric pouch with a medium size was found containing small amount of hematin. The staple line appeared intact. The gastrojejunal anastomosis was characterized by edema at the jejunal side and 2 chronic appearing ulceration, deep with necrotic base, novisbile vessel, no active bleeding, no stimata of recent bleed. Easily traversed. Pouch mildly enlarged but no gastritis, tiny hiatal hernia. no active bleeding. Jejunal limb traversed to end of endoscope, healthy. Impression: - Normal esophagus. - Gastric bypass with a medium-sized pouch and intact staple line. Gastrojejunal anastomosis characterized by edema and ulceration. - No specimens collected. Recommendation: - Admit the patient to hospital [facility] for ongoing care. - Resume regular diet today. - - Use Protonix (pantoprazole) 40 mg PO BID for 6 weeks. then maintain at 40 mg daily. Reassess in 3 months if anemia not improved. Procedure Code(s): --- Professional --- 29386, Esophagogastroduodenoscopy, flexible, transoral; diagnostic, including collection of specimen(s) by brushing or washing, when performed (separate procedure) Diagnosis Code(s): --- Professional --- Z98.84, Bariatric surgery status K28.9, Gastrojejunal ulcer, unspecified as acute or chronic, without hemorrhage or perforation D50.0, Iron deficiency anemia secondary to blood loss (chronic) CPT copyright 2019 [employer]. All rights reserved. The codes documented in this report are preliminary and upon manager garage review may be revised to meet current compliance requirements. Charly Balderas MD Charly Balderas MD 08/16/2020 3:10:14 PM Electronically signed by Charly Balderas MD Number of Addenda: 0 Note Initiated On: 08/16/2020 2:44 PM Estimated Blood Loss: Estimated blood loss: none.
[2020-08-16] MEDS ORDERED: LR 1,000 ML IV SCH (16:15)
[2020-08-16] MEDS ORDERED: ONDANSETRON 4MG/2ML VIAL IV PRN (16:15)
[2020-08-16] MEDS: SENNA 8.6 MG TAB (SENOKOT) PO SCH (20:59)
[2020-08-16] MEDS: PANTOPRAZOLE 40MG TAB (PROTONIX) PO SCH (21:00)
[2020-08-16] MEDS: LEVEMIR (INSULIN DETEMIR) 1 UNITS/0.01ML SC SCH (21:14)
[2020-08-17] MEDS: LevoFLOXacin 250 MG TABLET PO SCH (05:37)
[2020-08-17 06:00] VITALS: BP 124/59
[2020-08-17] MEDS: SPIRONOLACTONE 25 MG TAB PO SCH (08:50)
[2020-08-17] MEDS: TORSEMIDE 10 MG TABLET PO SCH ×2 (08:50→17:20)
[2020-08-17] MEDS: ROSUVASTATIN 10 MG TAB (CRESTOR) PO SCH (08:51)
[2020-08-17] MEDS: COLESEVELAM 625 MG TAB (WELCHOL) PO SCH ×2 (08:51→21:59)
[2020-08-17] MEDS: GABAPENTIN 300 MG CAP PO SCH ×2 (08:51→21:59)
[2020-08-17] MEDS: ACETAMINOPHEN 650MG ER TAB (TYLENOL ARTHRITIS) PO SCH ×2 (08:51→21:59)
[2020-08-17] MEDS: bisoproloL fumarate 5 MG TAB PO SCH (08:51)
[2020-08-17] MEDS: DOCUSATE SODIUM 100MG CAPSULE PO SCH ×2 (08:52→21:00)
[2020-08-17] MEDS: IRBESARTAN 150MG TAB PO SCH (08:52)
[2020-08-17] MEDS: PANTOPRAZOLE 40MG TAB (PROTONIX) PO SCH ×2 (08:52→21:59)
[2020-08-17] MEDS: APIXABAN 5 MG TAB (ELIQUIS) PO SCH ×2 (08:53→21:59)
[2020-08-17] MEDS: POTASSIUM CHLORIDE 10 MEQ SR TABLET PO SCH (08:53)
[2020-08-17] MEDS: HumaLOG INSULIN (NovoLOG) PER UNIT SC SCH ×4 (08:53→21:00)
[2020-08-17] MEDS: FERROUS SULFATE 325MG TAB PO SCH ×2 (08:53→21:59)
[2020-08-17 10:00] VITALS: BP 123/47
[2020-08-17 10:00] LABS: HEMATOCRIT 34.3 % (36.0-47.0); HEMOGLOBIN 10.1 g/dl (12.0-15.5); MEAN CORPUSCULAR HEMOGLOBIN 27.6 pg (27.0-33.0); MEAN CORPUSCULAR HGB CONC 29.4 g/dl (32.0-36.5); MEAN CORPUSCULAR VOLUME 93.7 fl (80.0-96.0); PLATELET COUNT, AUTOMATED 156 10^3/uL (150-450); RED BLOOD COUNT 3.66 10^6/uL (4.00-5.40); WHITE BLOOD COUNT 9.7 10^3/uL (4.0-10.0)
[2020-08-17 10:44] LABS: CALCIUM LEVEL 8.5 MG/DL (8.8-10.2); CREATININE FOR GFR 1.82 MG/DL (0.55-1.30); GLOMERULAR FILTRATION RATE 29.4 (>45); POTASSIUM SERUM 3.8 MEQ/L (3.5-5.1)
--- NOTE | 2020-08-17 10:47 | REP ---
INDICATION: sob COMPARISON: 08/14/2020, 04/12/2020 TECHNIQUE: PA and lateral. FINDINGS: Mediastinum and cardiac silhouette are stable with evidence for prior sternotomy and CABG again noted. Subtle perihilar and infrahilar areas of opacity are suggested on the frontal radiograph along with triangular opacity in the posterior base on lateral radiograph similar to prior examination which is not well identified on frontal radiograph. Skeletal structures demonstrate osteopenia and age-related degenerative changes. IMPRESSION: Subtle perihilar and lower lobe opacities as well as posterior basilar opacity for similar to prior examination. Chest CT with contrast is recommended for further investigation. <Electronically signed by Loy Juarez > 08/17/20 104
[2020-08-17 12:16] LABS: ABG BASE EXCESS 9.2 (-2.0-2.0); ABG HCO3 35.7 MEQ/L (22.0-26.0); ABG O2 SATURATION 94.8 % (95.0-99.0); ABG PARTIAL PRESSURE CO2 57.8 mmHg (35.0-45.0); ABG STANDARD HCO3 32.9 MEQ/L (22.0-26.0); ABG TOTAL CO2 37.4 MEQ/L (23.0-31.0); ABG pH (ARTERIAL) 7.408 UNITS (7.350-7.450)
[2020-08-17 13:23] VITALS: BP 120/49
[2020-08-17] MEDS ORDERED: ISOVUE-370 76% 100ML VIAL As Ordered ONE (14:32)
--- NOTE | 2020-08-17 15:07 | REP ---
INDICATION: further eval as per cxr COMPARISON: 07/29/2018 TECHNIQUE: Axial contrast enhanced images from the thoracic inlet to the upper abdomen with coronal and sagittal reformations using 50 ml Isovue 370 intravenous contrast material. This CT examination was performed using the following dose reduction techniques: Automated exposure control, adjustment of mA and/or kv according to the patient's size, and use of iterative reconstruction technique. FINDINGS: Moderate right pleural effusion with passive right lower lobe atelectasis and very minimal left basilar atelectasis and small pleural fluid. Findings are of uncertain etiology. Remainder lung ocampo are well aerated and without suspicious nodule or mass lesion. No significant adenopathy. Further evaluation of the mediastinum demonstrates atherosclerotic changes to the thoracic aorta and coronary arteries without aortic aneurysm, dissection, cardiomegaly or pericardial effusion. Pulmonary vasculature appears normal. Enlarged heterogeneous somewhat nodular right thyroid lobe noted. Evidence for prior bilateral mastectomy. Musculoskeletal structures demonstrate sternotomy and degenerative changes without acute osseous abnormality. Limited upper abdomen demonstrates normal bilateral adrenal glands with evidence for prior gastric bypass surgery and cholecystectomy. IMPRESSION: 1. Moderate right pleural effusion with passive right lower lobe atelectasis and very minimal left pleural fluid and atelectasis. 2. Further nonacute findings as above. <Electronically signed by Loy Juarez > 08/17/20 0113
[2020-08-17 18:33] VITALS: BP 141/50
[2020-08-17 20:00] VITALS: BP 130/58
[2020-08-17] MEDS: SENNA 8.6 MG TAB (SENOKOT) PO SCH (21:00)
[2020-08-17] MEDS: LEVEMIR (INSULIN DETEMIR) 1 UNITS/0.01ML SC SCH (22:00)
[2020-08-18 02:00] VITALS: BP 121/64
[2020-08-18 06:00] VITALS: BP 129/62
[2020-08-18] MEDS: LevoFLOXacin 250 MG TABLET PO SCH (06:17)
[2020-08-18 07:10] LABS: BASO % 0.3 % (0.0-1.0); EOS # 0.2 10^3/uL (0.0-0.5); EOS % 3.2 % (0.0-3.0); HEMATOCRIT 37.6 % (36.0-47.0); HEMOGLOBIN 11.1 g/dl (12.0-15.5); LYMPH # 1.1 10^3/uL (1.5-5.0); LYMPH % 15.5 % (24.0-44.0); MEAN CORPUSCULAR HEMOGLOBIN 27.3 pg (27.0-33.0); MEAN CORPUSCULAR HGB CONC 29.5 g/dl (32.0-36.5); MEAN CORPUSCULAR VOLUME 92.6 fl (80.0-96.0); MONO # 0.6 10^3/uL (0.0-0.8); MONO % 7.6 % (0.0-5.0); NEUTROPHILS # 5.3 10^3/uL (1.5-8.5); PLATELET COUNT, AUTOMATED 166 10^3/uL (150-450); RED BLOOD COUNT 4.06 10^6/uL (4.00-5.40); WHITE BLOOD COUNT 7.3 10^3/uL (4.0-10.0)
[2020-08-18 07:32] LABS: CALCIUM LEVEL 8.7 MG/DL (8.8-10.2); CREATININE FOR GFR 1.83 MG/DL (0.55-1.30); GLOMERULAR FILTRATION RATE 29.2 (>45); POTASSIUM SERUM 3.8 MEQ/L (3.5-5.1)
[2020-08-18] MEDS ORDERED: FUROSEMIDE 20MG/2ML VIAL (J1940) IV ONE (08:00)
[2020-08-18] MEDS: ACETAMINOPHEN 650MG ER TAB (TYLENOL ARTHRITIS) PO SCH ×2 (08:27→21:57)
[2020-08-18] MEDS: APIXABAN 5 MG TAB (ELIQUIS) PO SCH ×2 (08:27→21:57)
[2020-08-18] MEDS: GABAPENTIN 300 MG CAP PO SCH ×2 (08:27→21:56)
[2020-08-18] MEDS: ROSUVASTATIN 10 MG TAB (CRESTOR) PO SCH (08:27)
[2020-08-18] MEDS: HumaLOG INSULIN (NovoLOG) PER UNIT SC SCH ×4 (08:27→21:00)
[2020-08-18] MEDS: POTASSIUM CHLORIDE 10 MEQ SR TABLET PO SCH (08:28)
[2020-08-18] MEDS: DOCUSATE SODIUM 100MG CAPSULE PO SCH ×2 (08:28→21:56)
[2020-08-18] MEDS: FERROUS SULFATE 325MG TAB PO SCH ×2 (08:28→21:57)
[2020-08-18] MEDS: TORSEMIDE 10 MG TABLET PO SCH ×2 (08:28→17:27)
[2020-08-18] MEDS: COLESEVELAM 625 MG TAB (WELCHOL) PO SCH ×2 (08:28→21:57)
[2020-08-18] MEDS: SPIRONOLACTONE 25 MG TAB PO SCH (08:29)
[2020-08-18] MEDS: bisoproloL fumarate 5 MG TAB PO SCH (08:29)
[2020-08-18] MEDS: PANTOPRAZOLE 40MG TAB (PROTONIX) PO SCH ×2 (08:29→21:57)
[2020-08-18] MEDS: IRBESARTAN 150MG TAB PO SCH (08:29)
[2020-08-18 10:00] VITALS: BP 126/58
--- NOTE | 2020-08-18 12:36 | IPNPDOC ---
Text Note Date of Service The patient was seen on 08/17/20. NOTE Subjective: Patient seen and examined at bedside. No acute overnight events reported. No new medical complaints. Objective: Gen.: No acute distress, lying comfortably in bed HEENT: Normocephalic, atraumatic. Lungs: Clear to auscultation bilaterally. Heart: Positive S1-S2, regular rate and rhythm. Abdomen: Obese, nontender, positive bowel sounds. Extremities: Trace peripheral edema ASSESSMENT: 69 F with extensive past medical history above admitted for increasing shortness of breath, lethargy likely secondary to chronic anemia likely secondary to slow GI bleed, questionable pneumonia, mild exacerbation of HFpEF. PLAN: #Shortness of breath likely multifactorial 2/2 to worsening chronic anemia, HFpEF with mild exacerbation, ? PNA vs. atelectasis. -Currently saturating well on 2 L NC, will attempt to wean down. Not on home O2 -Please see below for individual treatment plans #anemia - multifactorial - Chronic iron deficiency anemia, possible GI bleed - on gisela iain and ASA at home -Hx of duodenal ulcer/gastric pouch ulceration/hx of upper GI bleed, esophagitis with metaplasia - EGD shows chronic non-bleeding duodenal ulcers -Last iron levels 34-46 throughout the year of 2019, no documented venofer or iron infusion done -On low dose iron supplement every other day -Discussed in detail with Dr. Ortiz (Cardiology) who is cautious to take patient off Eliquis due to severe pulmonary arterial HTN, CHF, bioprosthetic valve and atrial fibrillation. He is suggesting stopping ASA today but continuing with eliquis to see if this can be tolerated - s/p 2 units PRBC -Started on ferrous sulfate BID, PPI BID, sucralfate, CLD #Mild acute on chronic HFpEF with exacerbation -BNP 3647, + orthopnea, lower ext swelling, SOB, shortness of breath with chest pain -CXR: above -Trop neg -Last echo from 04/2020: above -C/w torsemide BID, CCB, BB, ARB and other home cardiac meds. Monitoring Cr closely- currently near her baseline -Tele, I&O's, daily wt, IS Q2hrs, fluid restriction #Chest pain r/o ACS vs. 2/2 to worsening SOB from anemia -No history of CAD -Substernal but also can be across entire anterior chest, intermittent and patient states this is familiar pain -Trop x 1 neg, cycle two more labs -ECG: atrial fib, no new abnormalities when compared to prior -C/w BB daily, CCB BID, nitro PRN. Hold ASA per Dr. Ortiz #? PNA vs. atelectasis on CXR -WBC wnl, afebrile. Low suspicion -CXR above -F/u procalcitonin -Starting on levofloxacin PO, if procalcitonin neg then can likely stop. IS ordered Q2H while awake -F/u BCx and sputum cx if collected #CKD Stage III -Cr 2.0 -Cr appears to be close to baseline -C/w diuresis, monitor daily labs to see if worsening -Does not follow with nephrology as o/p #A. fib, chronic and rate controlled -C/w CCB, BB, eliquis BID #Hyperlipidemia. -C/w Crestor. #COPD, not currently in exacerbation -Currently on 2 L NC; however, no wheezing, rhonchi -Received methylpred in ER -C/w home meds #DM type II -BS 272 -C/w levemir HS, ISS, AC/HS FS, consistent carb diet #HTN -C/w home meds #DAVIDSON -Can use home Bipap #Hx of GERD, PUD -C/w sucralfate, PPI but BID #DVT px -Eliquis BID, scd/teds DISPOSITION: pending clinical improvement VS,Fishbone, I+O VS, Fishbone, I+O Laboratory Tests 08/18/20 06:50 Vital Signs Date Time Temp Pulse Resp B/P (MAP) Pulse Ox O2 Delivery O2 Flow Rate FiO2 08/18/20 10:00 97.7 70 18 126/58 (80) 96 Nasal Cannula 0.5 I&O- Last 24 Hours up to 6 AM 08/18/20 06:00 Intake Total 990 ml Output Total 2350 ml Balance -1360 ml BIRDIE NGUYEN MD Aug 18, 2020 12:36
--- NOTE | 2020-08-18 12:37 | IPNPDOC ---
Text Note Date of Service The patient was seen on 08/18/20. NOTE Subjective: Patient seen and examined at bedside. No acute overnight events reported. No new medical complaints. Objective: Gen.: No acute distress, lying comfortably in bed HEENT: Normocephalic, atraumatic. Lungs: Clear to auscultation bilaterally. Heart: Positive S1-S2, regular rate and rhythm. Abdomen: Obese, nontender, positive bowel sounds. Extremities: Trace peripheral edema ASSESSMENT: 69 F with extensive past medical history above admitted for increasing shortness of breath, lethargy likely secondary to chronic anemia likely secondary to slow GI bleed, questionable pneumonia, mild exacerbation of HFpEF. PLAN: #Shortness of breath likely multifactorial 2/2 to worsening chronic anemia, HFpEF with mild exacerbation, ? PNA vs. atelectasis. -intermittently requiring oxygen - ct shows right pleural effusion - discussed thoracic surgery - recs for thoracentesis drainage #anemia - multifactorial - Chronic iron deficiency anemia, possible GI bleed - on gisela iain and ASA at home -Hx of duodenal ulcer/gastric pouch ulceration/hx of upper GI bleed, esophagitis with metaplasia - EGD shows chronic non-bleeding duodenal ulcers -Last iron levels 34-46 throughout the year of 2019, no documented venofer or iron infusion done -On low dose iron supplement every other day -Discussed in detail with Dr. Ortiz (Cardiology) who is cautious to take patient off Eliquis due to severe pulmonary arterial HTN, CHF, bioprosthetic valve and atrial fibrillation. He is suggesting stopping ASA today but continuing with eliquis to see if this can be tolerated - s/p 2 units PRBC -Started on ferrous sulfate BID, PPI BID, sucralfate #Mild acute on chronic HFpEF with exacerbation -BNP 3647, + orthopnea, lower ext swelling, SOB, shortness of breath with chest pain -CXR: above -Trop neg -Last echo from 04/2020: above -C/w torsemide BID, CCB, BB, ARB and other home cardiac meds. Monitoring Cr closely- currently near her baseline -Tele, I&O's, daily wt, IS Q2hrs, fluid restriction #Chest pain r/o ACS vs. 2/2 to worsening SOB from anemia -No history of CAD -Substernal but also can be across entire anterior chest, intermittent and patient states this is familiar pain -Trop x 1 neg, cycle two more labs -ECG: atrial fib, no new abnormalities when compared to prior -C/w BB daily, CCB BID, nitro PRN. Hold ASA per Dr. Ortiz #? PNA vs. atelectasis on CXR -WBC wnl, afebrile. Low suspicion -CXR above -F/u procalcitonin -Starting on levofloxacin PO, if procalcitonin neg then can likely stop. IS ordered Q2H while awake -F/u BCx and sputum cx if collected #CKD Stage III -Cr 2.0 -Cr appears to be close to baseline -C/w diuresis, monitor daily labs to see if worsening -Does not follow with nephrology as o/p #A. fib, chronic and rate controlled -C/w CCB, BB, eliquis BID #Hyperlipidemia. -C/w Crestor. #COPD, not currently in exacerbation -Currently on 2 L NC; however, no wheezing, rhonchi -Received methylpred in ER -C/w home meds #DM type II -BS 272 -C/w levemir HS, ISS, AC/HS FS, consistent carb diet #HTN -C/w home meds #DAVIDSON -Can use home Bipap #Hx of GERD, PUD -C/w sucralfate, PPI but BID #DVT px -Eliquis BID, scd/teds DISPOSITION: pending clinical improvement VS,Fishbone, I+O VS, Fishbone, I+O Laboratory Tests 08/18/20 06:50 Vital Signs Date Time Temp Pulse Resp B/P (MAP) Pulse Ox O2 Delivery O2 Flow Rate FiO2 08/18/20 10:00 97.7 70 18 126/58 (80) 96 Nasal Cannula 0.5 I&O- Last 24 Hours up to 6 AM 08/18/20 06:00 Intake Total 990 ml Output Total 2350 ml Balance -1360 ml BIRDIE NGUYEN MD Aug 18, 2020 12:37
[2020-08-18 13:15] LABS: INR 1.61; PROTHROMBIN TIME 19.5 SECONDS (12.5-14.3)
[2020-08-18 14:00] VITALS: BP 107/46
[2020-08-18] MEDS: SENNA 8.6 MG TAB (SENOKOT) PO SCH (21:57)
[2020-08-18] MEDS: LEVEMIR (INSULIN DETEMIR) 1 UNITS/0.01ML SC SCH (21:59)
[2020-08-18 22:00] VITALS: BP 136/59
[2020-08-19] MEDS: LevoFLOXacin 250 MG TABLET PO SCH (05:17)
[2020-08-19 05:49] VITALS: BP 107/68
[2020-08-19 07:50] LABS: BASO % 0.4 % (0.0-1.0); EOS # 0.3 10^3/uL (0.0-0.5); EOS % 3.7 % (0.0-3.0); HEMATOCRIT 37.7 % (36.0-47.0); HEMOGLOBIN 10.8 g/dl (12.0-15.5); LYMPH # 1.2 10^3/uL (1.5-5.0); LYMPH % 15.6 % (24.0-44.0); MEAN CORPUSCULAR HEMOGLOBIN 27.1 pg (27.0-33.0); MEAN CORPUSCULAR HGB CONC 28.6 g/dl (32.0-36.5); MEAN CORPUSCULAR VOLUME 94.7 fl (80.0-96.0); MONO # 0.5 10^3/uL (0.0-0.8); MONO % 7.1 % (0.0-5.0); NEUTROPHILS # 5.5 10^3/uL (1.5-8.5); NEUTROPHILS % 72.8 % (36.0-66.0); PLATELET COUNT, AUTOMATED 142 10^3/uL (150-450); RED BLOOD COUNT 3.98 10^6/uL (4.00-5.40); WHITE BLOOD COUNT 7.5 10^3/uL (4.0-10.0)
[2020-08-19 08:18] LABS: BLOOD UREA NITROGEN 39 MG/DL (7-18); CALCIUM LEVEL 9.2 MG/DL (8.8-10.2); CARBON DIOXIDE LEVEL 43 MEQ/L (21-32); CHLORIDE LEVEL 100 MEQ/L (98-107); CREATININE FOR GFR 1.92 MG/DL (0.55-1.30); GLOMERULAR FILTRATION RATE 27.6 (>45); GLUCOSE, FASTING 137 MG/DL (70-100); NT-PRO BNP 1736 PG/ML (<125); POTASSIUM SERUM 3.9 MEQ/L (3.5-5.1); SODIUM LEVEL 142 MEQ/L (136-145)
[2020-08-19] MEDS: HumaLOG INSULIN (NovoLOG) PER UNIT SC SCH ×4 (09:25→21:00)
[2020-08-19] MEDS: IRBESARTAN 150MG TAB PO SCH (09:27)
[2020-08-19] MEDS: DOCUSATE SODIUM 100MG CAPSULE PO SCH ×2 (09:28→21:11)
[2020-08-19] MEDS: APIXABAN 5 MG TAB (ELIQUIS) PO SCH ×2 (09:28→21:11)
[2020-08-19] MEDS: PANTOPRAZOLE 40MG TAB (PROTONIX) PO SCH ×2 (09:28→21:11)
[2020-08-19] MEDS: GABAPENTIN 300 MG CAP PO SCH ×2 (09:28→21:11)
[2020-08-19] MEDS: COLESEVELAM 625 MG TAB (WELCHOL) PO SCH ×2 (09:28→21:14)
[2020-08-19] MEDS: ROSUVASTATIN 10 MG TAB (CRESTOR) PO SCH (09:28)
[2020-08-19] MEDS: ACETAMINOPHEN 650MG ER TAB (TYLENOL ARTHRITIS) PO SCH ×2 (09:29→21:14)
[2020-08-19] MEDS: bisoproloL fumarate 5 MG TAB PO SCH (09:29)
[2020-08-19] MEDS: POTASSIUM CHLORIDE 10 MEQ SR TABLET PO SCH (09:29)
[2020-08-19] MEDS: FERROUS SULFATE 325MG TAB PO SCH ×2 (09:30→21:14)
[2020-08-19] MEDS: SPIRONOLACTONE 25 MG TAB PO SCH (09:30)
[2020-08-19] MEDS: TORSEMIDE 10 MG TABLET PO SCH ×2 (09:30→17:48)
--- NOTE | 2020-08-19 09:59 | REP ---
INDICATION: interim eval COMPARISON: 08/17/2020 TECHNIQUE: PA and lateral. FINDINGS: The mediastinum and cardiac silhouette are stable with evidence for prior sternotomy and CABG. No cardiomegaly. Lateral view best demonstrates small right pleural effusion and right passive atelectasis similar to prior examination. IMPRESSION: Lateral view best demonstrates small right pleural effusion and right basilar atelectasis similar to prior examination. No new acute process appreciated. <Electronically signed by Loy Juarez > 08/19/20 0956
[2020-08-19 14:00] VITALS: BP 112/44
--- NOTE | 2020-08-19 16:03 | IPNPDOC ---
Text Note Date of Service The patient was seen on 08/19/20. NOTE Subjective: Patient seen and examined at bedside. No acute overnight events reported. No new medical complaints. Still requiring supplemental oxygen at night through her CPAP last night. She required 8 L. She is noted to be a mouth breather. Objective: Gen.: No acute distress, lying comfortably in bed HEENT: Normocephalic, atraumatic. Lungs: Clear to auscultation bilaterally. Heart: Positive S1-S2, regular rate and rhythm. Abdomen: Obese, nontender, positive bowel sounds. Extremities: Trace peripheral edema ASSESSMENT: 69 F with extensive past medical history above admitted for increasing shortness of breath, lethargy likely secondary to chronic anemia likely secondary to slow GI bleed, questionable pneumonia, mild exacerbation of HFpEF. PLAN: #Shortness of breath likely multifactorial 2/2 to worsening chronic anemia, HFpEF with mild exacerbation, ? PNA vs. atelectasis. -intermittently requiring oxygen - ct shows right pleural effusion - discussed with thoracic surgery - no drainage at this time, assistance appreciated #anemia - multifactorial - Chronic iron deficiency anemia, possible GI bleed - on eliquis and ASA at home -Hx of duodenal ulcer/gastric pouch ulceration/hx of upper GI bleed, esophagitis with metaplasia - EGD shows chronic non-bleeding duodenal ulcers -Last iron levels 34-46 throughout the year of 2019, no documented venofer or ir on infusion done -On low dose iron supplement every other day -Discussed in detail with Dr. Ortiz (Cardiology) who is cautious to take patient off Eliquis due to severe pulmonary arterial HTN, CHF, bioprosthetic valve and atrial fibrillation. He is suggesting stopping ASA today but continuing with eliquis to see if this can be tolerated - s/p 2 units PRBC -Started on ferrous sulfate BID, PPI BID, sucralfate #Mild acute on chronic HFpEF with exacerbation -BNP 3647, + orthopnea, lower ext swelling, SOB, shortness of breath with chest pain -CXR: above -Trop neg -Last echo from 04/2020: above -C/w torsemide BID, CCB, BB, ARB and other home cardiac meds. Monitoring Cr closely- currently near her baseline -Tele, I&O's, daily wt, IS Q2hrs, fluid restriction #Chest pain r/o ACS vs. 2/2 to worsening SOB from anemia -No history of CAD -Substernal but also can be across entire anterior chest, intermittent and patient states this is familiar pain -Trop x 1 neg, cycle two more labs -ECG: atrial fib, no new abnormalities when compared to prior -C/w BB daily, CCB BID, nitro PRN. Hold ASA per Dr. Ortiz #? PNA vs. atelectasis on CXR -WBC wnl, afebrile. Low suspicion -CXR above -procalcitonin - does not indicate infection -cultures negative - completed 5 days levaquin #CKD Stage III -Cr 2.0 -Cr appears to be close to baseline -C/w diuresis, monitor daily labs to see if worsening -Does not follow with nephrology as o/p #A. fib, chronic and rate controlled -C/w CCB, BB, eliquis BID #Hyperlipidemia. -C/w Crestor. #COPD, not currently in exacerbation -Currently on 2 L NC; however, no wheezing, rhonchi -Received methylpred in ER -C/w home meds #DM type II -BS 272 -C/w levemir HS, ISS, AC/HS FS, consistent carb diet #HTN -C/w home meds #DAVIDSON -Can use home Bipap #Hx of GERD, PUD -C/w sucralfate, PPI but BID #DVT px -Eliquis BID, scd/teds DISPOSITION: pending clinical improvement VS,Fishbone, I+O VS, Fishbone, I+O Laboratory Tests 08/19/20 06:56 Vital Signs Date Time Temp Pulse Resp B/P (MAP) Pulse Ox O2 Delivery O2 Flow Rate FiO2 08/19/20 09:30 0.5 08/19/20 09:27 111/57 08/19/20 05:49 97.7 55 18 97 NIPPV (BIPAP/CPAP) I&O- Last 24 Hours up to 6 AM 08/19/20 06:00 Intake Total 1180 ml Output Total 2450 ml Balance -1270 ml BIRDIE NGUYEN MD Aug 19, 2020 16:03
[2020-08-19 20:00] VITALS: BP 125/58
[2020-08-19] MEDS: LEVEMIR (INSULIN DETEMIR) 1 UNITS/0.01ML SC SCH (21:13)
[2020-08-19] MEDS: SENNA 8.6 MG TAB (SENOKOT) PO SCH (21:14)
[2020-08-20 06:00] VITALS: BP 122/58
[2020-08-20 06:17] LABS: BASO % 0.6 % (0.0-1.0); EOS # 0.3 10^3/uL (0.0-0.5); EOS % 4.4 % (0.0-3.0); HEMATOCRIT 39.1 % (36.0-47.0); HEMOGLOBIN 11.1 g/dl (12.0-15.5); LYMPH # 1.2 10^3/uL (1.5-5.0); LYMPH % 16.6 % (24.0-44.0); MEAN CORPUSCULAR HEMOGLOBIN 26.8 pg (27.0-33.0); MEAN CORPUSCULAR HGB CONC 28.4 g/dl (32.0-36.5); MEAN CORPUSCULAR VOLUME 94.4 fl (80.0-96.0); MONO # 0.5 10^3/uL (0.0-0.8); MONO % 7.4 % (0.0-5.0); NEUTROPHILS # 4.9 10^3/uL (1.5-8.5); NEUTROPHILS % 70.9 % (36.0-66.0); PLATELET COUNT, AUTOMATED 142 10^3/uL (150-450); RED BLOOD COUNT 4.14 10^6/uL (4.00-5.40)
[2020-08-20 06:35] LABS: CALCIUM LEVEL 8.7 MG/DL (8.8-10.2); CREATININE FOR GFR 1.92 MG/DL (0.55-1.30); GLOMERULAR FILTRATION RATE 27.6 (>45); POTASSIUM SERUM 4.4 MEQ/L (3.5-5.1)
[2020-08-20] MEDS: HumaLOG INSULIN (NovoLOG) PER UNIT SC SCH ×4 (07:30→21:00)
[2020-08-20] MEDS: PANTOPRAZOLE 40MG TAB (PROTONIX) PO SCH ×2 (08:34→21:26)
[2020-08-20] MEDS: DOCUSATE SODIUM 100MG CAPSULE PO SCH ×2 (08:34→21:00)
[2020-08-20] MEDS: ROSUVASTATIN 10 MG TAB (CRESTOR) PO SCH (08:34)
[2020-08-20] MEDS: APIXABAN 5 MG TAB (ELIQUIS) PO SCH ×2 (08:35→21:25)
[2020-08-20] MEDS: COLESEVELAM 625 MG TAB (WELCHOL) PO SCH ×2 (08:35→21:26)
[2020-08-20] MEDS: ACETAMINOPHEN 650MG ER TAB (TYLENOL ARTHRITIS) PO SCH ×2 (08:35→21:25)
[2020-08-20] MEDS: POTASSIUM CHLORIDE 10 MEQ SR TABLET PO SCH (08:35)
[2020-08-20] MEDS: GABAPENTIN 300 MG CAP PO SCH ×2 (08:35→21:25)
[2020-08-20] MEDS: FERROUS SULFATE 325MG TAB PO SCH ×2 (08:35→21:25)
[2020-08-20] MEDS: SPIRONOLACTONE 25 MG TAB PO SCH (08:41)
[2020-08-20] MEDS: TORSEMIDE 10 MG TABLET PO SCH ×2 (08:41→18:15)
[2020-08-20] MEDS: IRBESARTAN 150MG TAB PO SCH (08:48)
[2020-08-20] MEDS: bisoproloL fumarate 5 MG TAB PO SCH (08:48)
--- NOTE | 2020-08-20 12:27 | IPNPDOC ---
Text Note Date of Service The patient was seen on 08/20/20. NOTE Subjective: Patient seen and examined at bedside. No acute overnight events reported. No new medical complaints. Still requiring supplemental oxygen at night through her CPAP last night she required 4 L. She is noted to be a mouth breather. Objective: Gen.: No acute distress, lying comfortably in bed HEENT: Normocephalic, atraumatic. Lungs: Clear to auscultation bilaterally. Heart: Positive S1-S2, regular rate and rhythm. Abdomen: Obese, nontender, positive bowel sounds. Extremities: Trace peripheral edema ASSESSMENT: 69 F with extensive past medical history above admitted for increasing shortness of breath, lethargy likely secondary to chronic anemia likely secondary to slow GI bleed, questionable pneumonia, mild exacerbation of HFpEF. PLAN: #Shortness of breath likely multifactorial 2/2 to worsening chronic anemia, HFpEF with mild exacerbation, ? PNA vs. atelectasis. -intermittently requiring oxygen - ct shows right pleural effusion - discussed with thoracic surgery - no drainage at this time, assistance appreciated #anemia - multifactorial - Chronic iron deficiency anemia, possible GI bleed - on eliquis and ASA at home -Hx of duodenal ulcer/gastric pouch ulceration/hx of upper GI bleed, esophagitis with metaplasia - EGD shows chronic non-bleeding duodenal ulcers -Last iron levels 34-46 throughout the year of 2019, no documented venofer or ir on infusion done -On low dose iron supplement every other day -Discussed in detail with Dr. Ortiz (Cardiology) who is cautious to take patient off Eliquis due to severe pulmonary arterial HTN, CHF, bioprosthetic valve and atrial fibrillation. He is suggesting stopping ASA today but continuing with eliquis to see if this can be tolerated - s/p 2 units PRBC -Started on ferrous sulfate BID, PPI BID, sucralfate #Mild acute on chronic HFpEF with exacerbation - compensated -BNP 3647, + orthopnea, lower ext swelling, SOB, shortness of breath with chest pain -CXR: above -Trop neg -Last echo from 04/2020: above -C/w torsemide BID, CCB, BB, ARB and other home cardiac meds. Monitoring Cr clos qamar- currently near her baseline -Tele, I&O's, daily wt, IS Q2hrs, fluid restriction #Chest pain r/o ACS vs. 2/2 to worsening SOB from anemia -No history of CAD -Substernal but also can be across entire anterior chest, intermittent and patient states this is familiar pain -Trop x 1 neg, cycle two more labs -ECG: atrial fib, no new abnormalities when compared to prior -C/w BB daily, CCB BID, nitro PRN. Hold ASA per Dr. Ortiz #? PNA vs. atelectasis on CXR -WBC wnl, afebrile. Low suspicion -CXR above -procalcitonin - does not indicate infection -cultures negative - completed 5 days levaquin #CKD Stage III -Cr 2.0 -Cr appears to be close to baseline -C/w diuresis, monitor daily labs to see if worsening -Does not follow with nephrology as o/p #A. fib, chronic and rate controlled -C/w CCB, BB, eliquis BID #Hyperlipidemia. -C/w Crestor. #COPD, not currently in exacerbation -Currently intermittently requiring supplemental oxygen; however, no wheezing, rhonchi -Received methylpred in ER -C/w home meds #DM type II -BS 272 -C/w levemir HS, ISS, AC/HS FS, consistent carb diet #HTN -C/w home meds #DAVIDSON -Can use home Bipap - will change nasal pillows to face mask as she is noted to be a mouth breather #Hx of GERD, PUD -C/w sucralfate, PPI but BID #DVT px -Eliquis BID, scd/teds DISPOSITION: still requiring intermittent supplemental oxygen during the day. D iscussed at length with cardiology. Given her multiple medical comorbidities, it is unlikely that the benefits of holding her Eliquis and undergoing thoracentesis will be of great benefit. She has previously required oxygen only 4 months ago. Plan will be to discharge tomorrow with home oxygen if she qualifies. Change out her nasal pillow for face mask, check o2 sats tonight. VS,Fishbone, I+O VS, Fishbone, I+O Laboratory Tests 08/20/20 05:56 Vital Signs Date Time Temp Pulse Resp B/P (MAP) Pulse Ox O2 Delivery O2 Flow Rate FiO2 08/20/20 08:48 107/44 08/20/20 06:00 98.4 88 20 96 NIPPV (BIPAP/CPAP) 4.0 I&O- Last 24 Hours up to 6 AM 08/20/20 06:00 Intake Total 1170 ml Output Total 1650 ml Balance -480 ml BIRDIE NGUYEN MD Aug 20, 2020 12:27
[2020-08-20] MEDS: SENNA 8.6 MG TAB (SENOKOT) PO SCH (21:00)
[2020-08-20] MEDS: LEVEMIR (INSULIN DETEMIR) 1 UNITS/0.01ML SC SCH (21:27)
[2020-08-20 22:00] VITALS: BP 121/58
[2020-08-21 06:00] VITALS: BP 121/59
[2020-08-21 06:00] LABS: BASO % 0.4 % (0.0-1.0); EOS # 0.3 10^3/uL (0.0-0.5); EOS % 4.9 % (0.0-3.0); HEMATOCRIT 40.5 % (36.0-47.0); HEMOGLOBIN 11.7 g/dl (12.0-15.5); LYMPH # 1.3 10^3/uL (1.5-5.0); LYMPH % 17.9 % (24.0-44.0); MEAN CORPUSCULAR HEMOGLOBIN 27.7 pg (27.0-33.0); MEAN CORPUSCULAR HGB CONC 28.9 g/dl (32.0-36.5); MEAN CORPUSCULAR VOLUME 95.7 fl (80.0-96.0); MONO # 0.5 10^3/uL (0.0-0.8); NEUTROPHILS # 4.9 10^3/uL (1.5-8.5); NEUTROPHILS % 69.5 % (36.0-66.0); PLATELET COUNT, AUTOMATED 123 10^3/uL (150-450); RED BLOOD COUNT 4.23 10^6/uL (4.00-5.40)
[2020-08-21 06:24] LABS: BLOOD UREA NITROGEN 45 MG/DL (7-18); CALCIUM LEVEL 8.8 MG/DL (8.8-10.2); CARBON DIOXIDE LEVEL 41 MEQ/L (21-32); CHLORIDE LEVEL 101 MEQ/L (98-107); GLOMERULAR FILTRATION RATE 23.6 (>45); GLUCOSE, FASTING 133 MG/DL (70-100); POTASSIUM SERUM 4.5 MEQ/L (3.5-5.1); SODIUM LEVEL 140 MEQ/L (136-145)
[2020-08-21] MEDS: HumaLOG INSULIN (NovoLOG) PER UNIT SC SCH ×4 (08:40→21:00)
[2020-08-21] MEDS: TORSEMIDE 10 MG TABLET PO SCH ×2 (08:40→16:48)
[2020-08-21] MEDS: DOCUSATE SODIUM 100MG CAPSULE PO SCH ×2 (08:41→21:00)
[2020-08-21] MEDS: APIXABAN 5 MG TAB (ELIQUIS) PO SCH ×2 (08:41→21:10)
[2020-08-21] MEDS: bisoproloL fumarate 5 MG TAB PO SCH (08:41)
[2020-08-21] MEDS: GABAPENTIN 300 MG CAP PO SCH ×2 (08:41→21:10)
[2020-08-21] MEDS: COLESEVELAM 625 MG TAB (WELCHOL) PO SCH ×2 (08:41→21:11)
[2020-08-21] MEDS: POTASSIUM CHLORIDE 10 MEQ SR TABLET PO SCH (08:41)
[2020-08-21] MEDS: SPIRONOLACTONE 25 MG TAB PO SCH (08:41)
[2020-08-21] MEDS: FERROUS SULFATE 325MG TAB PO SCH ×2 (08:42→21:11)
[2020-08-21] MEDS: PANTOPRAZOLE 40MG TAB (PROTONIX) PO SCH ×2 (08:42→21:11)
[2020-08-21] MEDS: IRBESARTAN 150MG TAB PO SCH (08:42)
[2020-08-21] MEDS: ACETAMINOPHEN 650MG ER TAB (TYLENOL ARTHRITIS) PO SCH ×2 (08:42→21:11)
[2020-08-21] MEDS: ROSUVASTATIN 10 MG TAB (CRESTOR) PO SCH (08:42)
--- NOTE | 2020-08-21 10:12 | REP ---
INDICATION: dinesh COMPARISON: 05/03/2020 TECHNIQUE: Real time villalpando scale ultrasound examination using curved array transducer. FINDINGS: Bilateral kidneys are normal in contour, size, echogenicity and reniform shape with increased central sinus fat suggesting chronic medical renal disease. Right kidney measures 10.7 x 5.3 x 5.6 cm and includes 10 mm simple midpole cyst without hydronephrosis, nephrolithiasis, or renal mass lesion. Left kidney measures 11.1 x 5.5 x 4.9 cm without hydronephrosis, nephrolithiasis, cystic or renal mass lesion. IMPRESSION: Chronic medical renal disease. 1 cm simple right renal cyst. No hydronephrosis. <Electronically signed by Loy Juarez > 08/21/20 1004
--- NOTE | 2020-08-21 13:06 | IPNPDOC ---
Text Note Date of Service The patient was seen on 08/21/20. NOTE Subjective: Patient seen and examined at bedside. No acute overnight events reported. No new medical complaints. Still requiring supplemental oxygen at night through her CPAP last night she required 4 L. She is noted to be a mouth breather. Still waiting for a full face mask to replace her nasal pillow. Objective: Gen.: No acute distress, lying comfortably in bed HEENT: Normocephalic, atraumatic. Lungs: Clear to auscultation bilaterally. Heart: Positive S1-S2, regular rate and rhythm. Abdomen: Obese, nontender, positive bowel sounds. Extremities: Trace peripheral edema ASSESSMENT: 69 F with extensive past medical history above admitted for increasing shortness of breath, lethargy likely secondary to chronic anemia likely secondary to slow GI bleed, questionable pneumonia, mild exacerbation of HFpEF. PLAN: #Shortness of breath likely multifactorial 2/2 to worsening chronic anemia, HFpEF with mild exacerbation, ? PNA vs. atelectasis. -intermittently requiring oxygen - ct shows right pleural effusion - discussed with thoracic surgery - no drainage at this time, assistance appreciated #anemia - multifactorial - Chronic iron deficiency anemia, possible GI bleed - on eliquis and ASA at home -Hx of duodenal ulcer/gastric pouch ulceration/hx of upper GI bleed, esophagitis with metaplasia - EGD shows chronic non-bleeding duodenal ulcers -Last iron levels 34-46 throughout the year of 2019, no documented venofer or iron infusion done -On low dose iron supplement every other day -Discussed in detail with Dr. Ortiz (Cardiology) who is cautious to take patient off Eliquis due to severe pulmonary arterial HTN, CHF, bioprosthetic valve and atrial fibrillation. He is suggesting stopping ASA today but continuing with eliquis to see if this can be tolerated - s/p 2 units PRBC -Started on ferrous sulfate BID, PPI BID, sucralfate #Mild acute on chronic HFpEF with exacerbation - resolved and grossly compensated -BNP 3647, + orthopnea, lower ext swelling, SOB, shortness of breath with chest pain -CXR: above -Trop neg -Last echo from 04/2020: above -C/w torsemide BID, CCB, BB, ARB and other home cardiac meds. #Chest pain r/o ACS vs. 2/2 to worsening SOB from anemia -No history of CAD -Substernal but also can be across entire anterior chest, intermittent and patient states this is familiar pain -Trop x 1 neg, cycle two more labs -ECG: atrial fib, no new abnormalities when compared to prior -C/w BB daily, CCB BID, nitro PRN. Hold ASA per Dr. Ortiz #? PNA vs. atelectasis on CXR -WBC wnl, afebrile. Low suspicion -CXR above -procalcitonin - does not indicate infection -cultures negative - completed 5 days levaquin #CKD Stage III - very grossly at baseline, although creatinine has been increasing - check creatinine tomorrow - renal US today was unremarkable -Does not follow with nephrology as o/p #A. fib, chronic and rate controlled -C/w CCB, BB, eliquis BID #Hyperlipidemia. -C/w Crestor. #COPD, not currently in exacerbation -Currently intermittently requiring supplemental oxygen; however, no wheezing, rhonchi -Received methylpred in ER -C/w home meds #DM type II -BS 272 -C/w levemir HS, ISS, AC/HS FS, consistent carb diet #HTN -C/w home meds #DAVIDSON -Can use home Bipap - will change nasal pillows to face mask as she is noted to be a mouth breather #Hx of GERD, PUD -C/w sucralfate, PPI but BID #DVT px -Eliquis BID, scd/teds DISPOSITION: Her respiratory status and o2 requirements during the day have improved, but are tenuous. Discussed at length with cardiology. Given her multiple medical comorbidities, it is unlikely that the benefits of holding her Eliquis and undergoing thoracentesis will be of great benefit. She has previously required oxygen only 4 months ago. She is currently requiring 4L of oxygen through her CPAP at night, which is new. Plan is to change out her nasal pillow for face mask, check o2 sats tonight. VS,Fishbone, I+O VS, Fishbone, I+O Laboratory Tests 08/21/20 05:42 Vital Signs Date Time Temp Pulse Resp B/P (MAP) Pulse Ox O2 Delivery O2 Flow Rate FiO2 08/21/20 08:40 71 115/49 08/21/20 06:00 97.4 20 99 NIPPV (BIPAP/CPAP) 4.0 I&O- Last 24 Hours up to 6 AM 08/21/20 05:59 Intake Total 1030 ml Output Total 650 ml Balance 380 ml BIRDIE NGUYEN MD Aug 21, 2020 13:06
[2020-08-21 14:00] VITALS: BP 107/47
[2020-08-21] MEDS: SENNA 8.6 MG TAB (SENOKOT) PO SCH (21:00)
[2020-08-21] MEDS: LEVEMIR (INSULIN DETEMIR) 1 UNITS/0.01ML SC SCH (21:11)
[2020-08-21 22:00] VITALS: BP 125/59
[2020-08-22 06:00] VITALS: BP 121/54
[2020-08-22] MEDS: HumaLOG INSULIN (NovoLOG) PER UNIT SC SCH ×4 (09:37→21:00)
[2020-08-22] MEDS: ROSUVASTATIN 10 MG TAB (CRESTOR) PO SCH (10:01)
[2020-08-22] MEDS: SPIRONOLACTONE 25 MG TAB PO SCH (10:01)
[2020-08-22] MEDS: POTASSIUM CHLORIDE 10 MEQ SR TABLET PO SCH (10:02)
[2020-08-22] MEDS: TORSEMIDE 10 MG TABLET PO SCH (10:03)
[2020-08-22] MEDS: ACETAMINOPHEN 650MG ER TAB (TYLENOL ARTHRITIS) PO SCH ×2 (10:04→21:18)
[2020-08-22] MEDS: IRBESARTAN 150MG TAB PO SCH (10:08)
[2020-08-22] MEDS: GABAPENTIN 300 MG CAP PO SCH ×2 (10:08→21:17)
[2020-08-22] MEDS: APIXABAN 5 MG TAB (ELIQUIS) PO SCH ×2 (10:09→21:18)
[2020-08-22] MEDS: PANTOPRAZOLE 40MG TAB (PROTONIX) PO SCH ×2 (10:09→21:17)
[2020-08-22] MEDS: bisoproloL fumarate 5 MG TAB PO SCH (10:10)
[2020-08-22] MEDS: FERROUS SULFATE 325MG TAB PO SCH ×2 (10:10→21:17)
[2020-08-22] MEDS: DOCUSATE SODIUM 100MG CAPSULE PO SCH ×2 (10:10→21:00)
[2020-08-22] MEDS: COLESEVELAM 625 MG TAB (WELCHOL) PO SCH ×2 (10:10→21:17)
[2020-08-22 11:03] LABS: BASO % 0.3 % (0.0-1.0); EOS # 0.3 10^3/uL (0.0-0.5); EOS % 3.3 % (0.0-3.0); HEMATOCRIT 36.3 % (36.0-47.0); HEMOGLOBIN 10.4 g/dl (12.0-15.5); MEAN CORPUSCULAR HEMOGLOBIN 27.4 pg (27.0-33.0); MEAN CORPUSCULAR HGB CONC 28.7 g/dl (32.0-36.5); MEAN CORPUSCULAR VOLUME 95.5 fl (80.0-96.0); MONO # 0.5 10^3/uL (0.0-0.8); MONO % 5.4 % (0.0-5.0); NEUTROPHILS # 7.7 10^3/uL (1.5-8.5); NEUTROPHILS % 80.7 % (36.0-66.0); PLATELET COUNT, AUTOMATED 112 10^3/uL (150-450); WHITE BLOOD COUNT 9.5 10^3/uL (4.0-10.0)
[2020-08-22 11:29] LABS: CALCIUM LEVEL 8.3 MG/DL (8.8-10.2); CREATININE FOR GFR 2.34 MG/DL (0.55-1.30); POTASSIUM SERUM 4.9 MEQ/L (3.5-5.1)
[2020-08-22 14:00] VITALS: BP 98/56
--- NOTE | 2020-08-22 20:09 | IPNPDOC ---
Date Seen The patient was seen on 08/22/20. Progress Note SUBJECTIVE: No O2 needed with CPAP overnight. Cr worsening over past several days, decreased torsemide and stopped other diuretic med. May require nephro consult. Denies shortness of breath, n/v/d, chest pain. OBJECTIVE: Physical Exam: VS: Please see below Gen.: No acute distress, sitting comfortable in bedside chair, AAOx 3 HEENT: Normocephalic, atraumatic. Lungs: Clear to auscultation bilaterally. Heart: Positive S1-S2, regular rate and rhythm. Abdomen: Obese, nontender, positive bowel sounds. Extremities: Trace peripheral edema LABORATORY: Please see below ASSESSMENT: 69 F with extensive past medical history above admitted for increasing shortness of breath, lethargy likely secondary to chronic anemia likely secondary to slow GI bleed, questionable pneumonia, mild exacerbation of HFpEF. PLAN: #Shortness of breath likely multifactorial 2/2 to worsening chronic anemia, HFpEF with mild exacerbation, ? PNA vs. atelectasis, DAVIDSON, pleural effusion - Did well on RA during day and night , No O2 needed with CPAP nightly - CXR 08/19/20: pleural effusion with atelectasis - See below for individual issue treatment #Anemia likely multifactorial to chronic iron deficiency anemia, possible GI bleed - was on eliquis and ASA at home -H/H stable, no s/s of bleeding, - s/p 2 units PRBC this admission -Hx of duodenal ulcer/gastric pouch ulceration/hx of upper GI bleed, esophagitis with metaplasia -EGD shows chronic non-bleeding duodenal ulcers -Last iron levels 34-46 throughout the year of 2019, no documented venofer or iron infusion done -On low dose iron supplement every other day -Discussed in detail with Dr. Ortiz (Cardiology) who is cautious to take patien t off Eliquis due to severe pulmonary arterial HTN, CHF, bioprosthetic valve and atrial fibrillation. He is suggesting continuing with eliquis and she has toleratd this well -Started on ferrous sulfate BID, PPI BID, sucralfate #Mild acute on chronic HFpEF with exacerbation with pleural effusion -Resolved and grossly compensated -BNP 3647 from admission-- 1462 most recently , improved orthopnea, lower ext swelling, SOB -Last echo from 04/2020 -Last CXR above -C/w torsemide daily, CCB, BB, and other cardiac med s #CKD Stage III -Cr worsened today at 2.34, baseline appears to be 1.5-2 -renal US today was unremarkable -Does not follow with nephrology as o/p but if worsens tomorrow, consider inpatient consult -Decreased torsemide to daily, stopped other diuretics and med #A. fib, chronic and rate controlled -C/w CCB, BB, eliquis BID #Hyperlipidemia. -C/w Crestor. #COPD, not currently in exacerbation -Currently intermittently requiring supplemental oxygen; however, no wheezing, rhonchi -Received methylpred in ER -C/w home meds #DM type II -C/w levemir HS, ISS, AC/HS FS, consistent carb diet #HTN -C/w home meds #DAVIDSON -Can use home Bipap - changed nasal pillows to face mask as she is noted to be a mouth breather -No O2 needed overnight. #Hx of GERD, PUD -C/w sucralfate, PPI BID #DVT px -Eliquis BID, scd/teds Resolved issues: #Chest pain 2/2 to worsening SOB from anemia #? PNA DISPOSITION: If Cr worsens, may need nephrology to see prior to discharge. Plan is discharge home when medically improved. VS, I&O, 24H, Fishbone Vital Signs/I&O Vital Signs Date Time Temp Pulse Resp B/P (MAP) Pulse Ox O2 Delivery O2 Flow Rate FiO2 08/22/20 14:00 99.7 55 18 98/56 (70) 98 Room Air 08/21/20 06:00 4.0 I&O- Last 24 Hours up to 6 AM 08/22/20 06:00 Intake Total 810 ml Output Total 1675 ml Balance -865 ml Laboratory Data 24H LABS Laboratory Tests 2 08/21/20 20:52: Bedside Glucose (Misc Panel) 226H 08/22/20 08:32: Bedside Glucose (Misc Panel) 252H 08/22/20 10:28: Immature Granulocyte % (Auto) 0.3, Neutrophils (%) (Auto) 80.7H, Lymphocytes (%) (Auto) 10.0L, Monocytes (%) (Auto) 5.4H, Eosinophils (%) (Auto) 3.3H, Basophils (%) (Auto) 0.3, Neutrophils # (Auto) 7.7, Lymphocytes # (Auto) 1.0L, Monocytes # (Auto) 0.5, Eosinophils # (Auto) 0.3, Basophils # (Auto) 0.0, Nucleated Red Blood Cells % (auto) 0.0, Anion Gap 5L, Glomerular Filtration Rate 22.0L, Calcium Level 8.3L 08/22/20 11:29: Bedside Glucose (Misc Panel) 152H 08/22/20 16:28: Bedside Glucose (Misc Panel) 115 CBC/BMP Laboratory Tests 08/22/20 10:28 Microbiology Microbiology 08/21/20 Urine Culture - Final, Complete 08/19/20 Stool Occult Blood (ZANE) - Final, Complete 08/14/20 Respiratory Virus Panel (PCR) (ZANE) - Final, Complete 08/14/20 Blood Culture - Final, Complete NO GROWTH AFTER 5 DAYS 08/14/20 Blood Culture - Final, Complete NO GROWTH AFTER 5 DAYS Current Medications Current Medications Medications (Trade) Dose Ordered Sig/Tariq Route PRN Reason Start Time Stop Time Status Last Admin Dose Admin Acetaminophen (Tylenol Arthritis Er) 1,300 mg BID PO 08/14/20 21:00 08/22/20 10:04 Albuterol Sulfate (Proventil, Ventolin Hfa) 2 puff QIDP PRN INH SHORTNESS OF BREATH 08/14/20 18:15 Albuterol/ Ipratropium (Combivent Respimat 100-20mcg) 4 puff Q20M INH 08/14/20 12:15 08/14/20 12:56 DC 08/14/20 13:00 Apixaban (Eliquis) 5 mg BID PO 08/14/20 21:00 08/22/20 10:09 Bisoprolol Fumarate (Zebeta) 5 mg DAILY PO 08/15/20 09:00 08/22/20 10:10 Colesevelam HCl (WelChoL) 625 mg BID PO 08/14/20 21:00 08/22/20 10:10 Dextrose (Dextrose 50%) 25 ml ASDIRECTED PRN IV SEE LABEL COMMENTS 08/14/20 15:30 Diltiazem HCl (Cardizem) 30 mg BID PO 08/14/20 21:00 08/22/20 10:00 Docusate Sodium (Colace) 100 mg BID PO 08/14/20 21:00 08/22/20 10:10 Ferrous Sulfate (Ferrous Sulfate) 325 mg BID PO 08/14/20 21:00 08/22/20 10:10 Fluticasone Propionate (Flonase 0.05% Nasal [place]) 1 spray DAILYPRN PRN NA NASAL CONGESTION 08/14/20 18:15 Gabapentin (Neurontin) 300 mg BID PO 08/14/20 21:00 08/22/20 10:08 Glucagon (Glucagon) 1 mg ASDIRECTED PRN SC SEE LABEL COMMENTS 08/14/20 15:30 Glucose (Glucose) 16 GM ASDIRECTED PRN PO SEE LABEL COMMENTS 08/14/20 15:30 Home Med (Med Rec Complete!) ASDIRECTED XX 08/14/20 16:00 08/14/20 15:47 DC Insulin Detemir (Levemir Insulin) 10 units QHS SC 08/14/20 21:00 08/21/20 21:11 Insulin Human Lispro (HumaLOG INSULIN) SEE PROTOCOL TABLE AC SC 08/14/20 17:30 08/22/20 17:21 Insulin Human Lispro (HumaLOG INSULIN) SEE PROTOCOL TABLE QHS SC 08/14/20 21:00 08/16/20 21:15 Irbesartan (Avapro) 75 mg DAILY PO 08/15/20 09:00 08/22/20 11:37 DC 08/22/20 10:08 Lactated Ringer's 1,000 ml @ 100 mls/hr Q10H IV 08/16/20 16:15 08/16/20 17:15 DC Lactic Acid (Lac-Hydrin 12% Lotion) APPLY TO BILATERAL FEET BIDP PRN TOP DRY SKIN 08/14/20 18:15 Levofloxacin (Levaquin) 250 mg DAILY@0600 PO 08/15/20 06:00 08/19/20 16:03 DC 08/19/20 05:17 Nitroglycerin (Nitrostat (1/ 150)) 0.4 mg Q5MP PRN SL CHEST PAIN 08/14/20 15:15 Ondansetron HCl (ZOFRAN INJection) 4 mg Q4HP PRN IV NAUSEA OR VOMITING 08/16/20 16:15 08/16/20 17:15 DC Pantoprazole Sodium (Protonix) 40 mg BID PO 08/16/20 21:00 08/22/20 10:09 Polyethylene Glycol (Miralax) 1 pkt DAILYPRN PRN PO CONSTIPATION 08/14/20 15:15 Potassium Chloride (Micro-K Extencaps) 10 meq DAILY PO 08/15/20 09:00 08/22/20 10:02 Rosuvastatin Calcium (Crestor) 20 mg DAILY PO 08/15/20 09:00 08/22/20 10:01 Senna (Senokot) 2 tab QHS PO 08/14/20 21:00 08/19/20 21:14 Spironolactone (Aldactone) 25 mg DAILY PO 08/15/20 09:00 08/22/20 11:37 DC 08/22/20 10:01 Torsemide (Demadex) 30 mg BID@0900,1700 PO 08/15/20 09:00 08/22/20 11:37 DC 08/22/20 10:03 Torsemide (Demadex) 30 mg DAILY PO 08/23/20 09:00 Allergies Coded Allergies: Sulfa (Sulfonamide Antibiotics) (Verified Allergy, Severe, anaphylaxis, rash, 04/30/19) neomycin (Verified Allergy, Intermediate, rash, 04/30/19) ramipril (Verified Adverse Reaction, Intermediate, cough, 04/30/19) Dana Calles MD Aug 22, 2020 20:09
[2020-08-22] MEDS: SENNA 8.6 MG TAB (SENOKOT) PO SCH (21:00)
[2020-08-22] MEDS: LEVEMIR (INSULIN DETEMIR) 1 UNITS/0.01ML SC SCH (21:18)
[2020-08-22 21:23] VITALS: BP 131/57
[2020-08-22 22:00] VITALS: BP 118/56
[2020-08-23 06:00] VITALS: BP 129/59
[2020-08-23 06:54] LABS: HEMATOCRIT 35.7 % (36.0-47.0); HEMOGLOBIN 10.5 g/dl (12.0-15.5); MEAN CORPUSCULAR HGB CONC 29.4 g/dl (32.0-36.5); MEAN CORPUSCULAR VOLUME 95.2 fl (80.0-96.0); PLATELET COUNT, AUTOMATED 117 10^3/uL (150-450); RED BLOOD COUNT 3.75 10^6/uL (4.00-5.40); WHITE BLOOD COUNT 7.3 10^3/uL (4.0-10.0)
[2020-08-23 07:23] LABS: BILIRUBIN,TOTAL 0.4 MG/DL (0.2-1.0); CALCIUM LEVEL 8.4 MG/DL (8.8-10.2); CREATININE FOR GFR 2.2 MG/DL (0.55-1.30); GLOMERULAR FILTRATION RATE 23.6 (>45); POTASSIUM SERUM 4.6 MEQ/L (3.5-5.1); TOTAL PROTEIN 5.6 GM/DL (6.4-8.2)
[2020-08-23] MEDS: FERROUS SULFATE 325MG TAB PO SCH (08:36)
[2020-08-23] MEDS: POTASSIUM CHLORIDE 10 MEQ SR TABLET PO SCH (08:36)
[2020-08-23] MEDS: HumaLOG INSULIN (NovoLOG) PER UNIT SC SCH ×2 (08:36→12:00)
[2020-08-23] MEDS: COLESEVELAM 625 MG TAB (WELCHOL) PO SCH (08:37)
[2020-08-23] MEDS: PANTOPRAZOLE 40MG TAB (PROTONIX) PO SCH (08:37)
[2020-08-23] MEDS: DOCUSATE SODIUM 100MG CAPSULE PO SCH (08:37)
[2020-08-23] MEDS: ACETAMINOPHEN 650MG ER TAB (TYLENOL ARTHRITIS) PO SCH (08:37)
[2020-08-23] MEDS: APIXABAN 5 MG TAB (ELIQUIS) PO SCH (08:37)
[2020-08-23] MEDS: ROSUVASTATIN 10 MG TAB (CRESTOR) PO SCH (08:37)
[2020-08-23] MEDS: GABAPENTIN 300 MG CAP PO SCH (08:37)
[2020-08-23] MEDS ORDERED: PANT40TA29 PO (08:47)
[2020-08-23] MEDS ORDERED: DOK1CAP7 PO (08:47)
[2020-08-23] MEDS ORDERED: TORS10TA3 PO (08:47)
[2020-08-23] MEDS: bisoproloL fumarate 5 MG TAB PO SCH (08:51)
[2020-08-23] MEDS ORDERED: TORSEMIDE 10 MG TABLET PO SCH (09:00)
[2020-08-23 14:00] VITALS: BP 122/62
--- NOTE | 2020-08-23 18:32 | DS.PDOC ---
Discharge Summary General Date of Admission Aug 14, 2020 at 13:38 Date of Discharge 08/23/20 Attending Physician: Dana Calles MD Discharge Summary HISTORY OF PRESENT ILLNESS: Patient is a 69 y/o F with extensive past medical history listed below who presented with increased shortness of breath, anterior chest pressure over the past several weeks. Patient states pressure is not new, 8/10 at its worst, anteriorly located, at times can radiate to the neck. pressure is worse with activity (i.e. when she goes up the stairs in her home). Associated symptoms to chest pressure includes shortness of breath, nonproductive cough, lightheadedness, dizziness, decreased appetite and weakness that has been worsening over the past several months. She states to have been compliant with h er medications at home and follows up regularly with cardiology and her PCP. In the ER, VS showed BP 120-190 mmHg systolic BP. She was placed on 2 L NC as she was originally 80% on RA, improved to 100% after supplementation. CXR could not r/o PNA, atelectasis. Abnormal labs include H&H 8.5/28.7, this has been gradually decreasing over the past 1 year. BNP was elevated at 3647, she always is slightly elevated with a baseline between [id number]. Creatinine was 2.2 and again, after trending her creatinine, her baseline has bumped up this high before. pH 7.317, PCO2 on VBG 64.6. ECG showed atrial fibrillation with an old right bundle branch block, similar to prior on file. Occult blood positive. I discussed the case in detail with the patient's conservation worker, Dr. Ortiz, and we both believe many of her symptoms are likely secondary to worsening anemia possibly secondary to chronic bleed. She has a history of renal ulcer, gastric pouch ulceration and a history of upper GI bleed and is currently on Eliquis and aspirin. A major concern is taking her off of anticoagulation with her history o f atrial fibrillation, prosthetic valve and severe pulmonary arterial hypertension as stopping intake regulation would put her at high risk for clot formation. He is recommending stopping aspirin currently and keeping on Alex was wall transfusing and monitoring H&H. I also discussed the case with Dr. Shea, general surgery. He suggests monitoring the patient closely but at this time is nonemergent case where they would do an upper or lower scope. He does think she needs one both upper and lower scoping as outpatient for sure. The patient was admitted for increasing shortness of breath, lethargy likely secondary to chronic anemia likely secondary to slow GI bleed, questionable pneumonia, mild exacerbation of HFpEF. HOSPITAL COURSE: Patient's shortness of breath was found to be likely multifactorial 2/2 to worsening chronic anemia, HFpEF with mild exacerbation, ? PNA vs. atelectasis, O SA, and new pleural effusion. Mild acute on chronic HFpEF with exacerbation with pleural effusion was treated with torsemide, CCB, BB and BNP improved gradually. Cr increased with torsemide BID so some meds were held on discharge, need to be reviewed by PCP to restart on next follow up appointment. She had anemia likely multifactorial to chronic iron deficiency anemia, possible GI bleed - was on eliquis and ASA at home. H/H stablized after 2 units PRBC. Hx of duodenal ulcer/gastric pouch ulceration/hx of upper GI bleed, esophagitis with metaplasia. EGD done this admission shows chronic non-bleeding duodenal ulcers. As we were cautious to take patient off Eliquis due to severe pulmonary arterial HTN, CHF, bioprosthetic valve and atrial fibrillation, cardiology agreed. She had no increased bleeding and tolerated continued anticoagulation well. Last iron levels 34-46 throughout the year of 2019, no documented venofer or iron infusion done. She was continued on ferrous sulfate BID, PPI BID. She has long standing CKD Stage III, Cr increased to as high as 2.34 but it started to improve when diuretics, losartan was held. Renal US today unremarkable. She does not follow with nephrology as o/p but would benefit from referral after discharge. 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 It is re commended she has close follow up for her kidney function by her PCP. PAST MEDICAL HISTORY: HFpEF, EF 75% Chronic iron deficiency anemia GERD/hiatal hernia Obesity s/p Danielle-En-Y Atrial Fibrillation on eliquis Hypertension Type 2 diabetes, IDDM duodenal ulcer/gastric pouch ulceration/hx of upper GI bleed Esophagitis metaplasia, mild Sinusitis chronic Allergic rhinitis Dyslipidemia COPD DAVIDSON Diabetic retinopathy status post laser eye surgery History of breast cancer status post mastectomy Moderate atheroma in distal aortic arch and descending thoracic aorta Tubular adenoma in colon Lumbar spondylosis Severe pulmonary arterial pressure 74 mmHg Severe pulmonary hypertension Carotid stenosis PAST SURGICAL HISTORY: Hysterectomy/JENNIFER BSO for noncancerous reasons Gastric bypass in 2006 Bladder elevation in Left breast US guided biopsy 01/20/2015 Left breast lumpectomy 03/2015 Bilateral mastectomy Aortic Valve replacement with bioprosthetic valve in 2010 Cholecystectomy in 07/2018 SOCIAL HISTORY: Prior smoker for 20 years, quit 25-30 years ago. Smoked 3 PPD. Denies alcohol or drug use. PCP- Dr. 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 Ortiz/[employer]te[employer]. Full code Lives at home. FAMILY HISTORY: mother- liver cancer. at 41 y/o father- CAD, DM . at 80 y/o ALLERGIES: Please see below. DISCHARGE MEDICATIONS: Please see below. Physical Exam: VS: Please see below Gen.: No acute distress, sitting comfortable in bedside chair, AAOx 3 HEENT: Normocephalic, atraumatic. Lungs: Clear to auscultation bilaterally. Heart: Positive S1-S2, regular rate and rhythm. Abdomen: Obese, nontender, positive bowel sounds. Extremities: Trace peripheral edema LABORATORY: Please see below ASSESSMENT: 69 F with extensive past medical history above admitted for increasing shortness of breath, lethargy likely secondary to chronic anemia likely secondary to slow GI bleed, questionable pneumonia, mild exacerbation of HFpEF. PLAN: #Shortness of breath likely multifactorial 2/2 to worsening chronic anemia, HFpEF with mild exacerbation, ? PNA vs. atelectasis, DAVIDSON, pleural effusion - Did well on RA during day and night , No O2 needed with CPAP nightly - CXR 08/19/20: pleural effusion with atelectasis - See below for individual issue treatment #Anemia likely multifactorial to chronic iron deficiency anemia, possible GI bleed - was on eliquis and ASA at home -H/H stable, no s/s of bleeding, - s/p 2 units PRBC this admission -Hx of duodenal ulcer/gastric pouch ulceration/hx of upper GI bleed, esophagitis with metaplasia -EGD shows chronic non-bleeding duodenal ulcers -Last iron levels 34-46 throughout the year of 2019, no documented venofer or iron infusion done -On low dose iron supplement every other day -Discussed in detail with Dr. Ortiz (Cardiology) who is cautious to take patient off Eliquis due to severe pulmonary arterial HTN, CHF, bioprosthetic valve and atrial fibrillation. He is suggesting continuing with eliquis and she has toleratd this well -Started on ferrous sulfate BID, PPI BID -F/u with PCP after discharge. #Mild acute on chronic HFpEF with exacerbation with pleural effusion -Resolved and grossly compensated -BNP 3647 from admission-- 1462 most recently , improved orthopnea, lower ext swelling, SOB -Last echo from 04/2020 -Last CXR above -C/w torsemide daily only, CCB, BB, and other cardiac meds #CKD Stage III -Cr improved some to 2.20, baseline appears to be 1.5-2 -renal US unremarkable -Does not follow with nephrology as o/p but I would recommend nephrology consult and close f/u by PCP in the mean time. -Med changes include decreasing torsemide to daily. #A. fib, chronic and rate controlled -C/w CCB, BB, eliquis BID #Hyperlipidemia. -C/w Crestor. #COPD, not currently in exacerbation -Currently intermittently requiring supplemental oxygen; however, no wheezing, rhonchi -C/w home meds #DM type II -C/w home meds, consistent carb diet #HTN -C/w home meds #DAVIDSON -Can use home Bipap - changed nasal pillows to face mask as she is noted to be a mouth breather -No O2 needed overnight. #Hx of GERD, PUD -C/w PPI BID #DVT px -Eliquis BID, scd/teds Resolved issues: #Chest pain 2/2 to worsening SOB from anemia #? PNA DISPOSITION: Discharged home to f/u with PCP, cardiology, needing nephrology referral by PCP. TIME SPENT ON DISCHARGE: Greater than 30 minutes. Vital Signs/I&Os Vital Signs Date Time Temp Pulse Resp B/P (MAP) Pulse Ox O2 Delivery O2 Flow Rate FiO2 08/23/20 14:00 97.7 54 16 122/62 (82) 95 Room Air 08/21/20 06:00 4.0 I&O- Last 24 Hours up to 6 AM 08/23/20 06:00 Intake Total 1830 ml Output Total 2250 ml Balance -420 ml Laboratory Data Labs 24H Laboratory Tests 2 08/22/20 20:18: Bedside Glucose (Misc Panel) 233H 08/23/20 06:28: Nucleated Red Blood Cells % (auto) 0.0, Anion Gap 5L, Glomerular Filtration Rate 23.6L, Calcium Level 8.4L, Total Bilirubin 0.4, Aspartate Amino Transf (AST/SG OT) 18, Alanine Aminotransferase (ALT/SGPT) 20, Alkaline Phosphatase 69, Total Protein 5.6L, Albumin 3.0L, Albumin/Globulin Ratio 1.2 08/23/20 11:37: Bedside Glucose (Misc Panel) 130H CBC/BMP Laboratory Tests 08/23/20 06:28 FSBS Laboratory Tests Test 08/22/20 20:18 08/23/20 11:37 Range/Units Bedside Glucose (Misc Panel) 233 130 80-115 MG/DL Microbiology Microbiology 08/21/20 Urine Culture - Final, Complete 08/19/20 Stool Occult Blood (ZANE) - Final, Complete 08/14/20 Respiratory Virus Panel (PCR) (ZANE) - Final, Complete 08/14/20 Blood Culture - Final, Complete NO GROWTH AFTER 5 DAYS 08/14/20 Blood Culture - Final, Complete NO GROWTH AFTER 5 DAYS Discharge Medications Scheduled Acetaminophen (Tylenol Arthritis) 650 Mg Tablet.er, 1,300 MG PO BID, (Reported) Apixaban (Eliquis) 5 Mg Tab, 5 MG PO BID, (Reported) Aspirin (Aspirin EC) 81 Mg Tablet.dr, 81 MG PO DAILY, (Reported) Bisoprolol Fumarate (Bisoprolol Fumarate) 5 Mg Tab, 5 MG PO DAILY, (Reported) Brinzolamide/Brimonidine Tart (Simbrinza 1%-0.2% Eye Drops) 1 Shaniqua Shaniqua, 1 DROP OU BID, (Reported) Calcium Carbonate/Vitamin D3 (Calcium 600-Vit D3 400 Tablet) 1 Each Tablet, 1 TAB PO DAILY, (Reported) Cefadroxil Monohydrate (Cefadroxil) 500 Mg Capsule, 1,000 MG PO BID, (Reported) Colesevelam Hydrochloride (Welchol) 625 Mg Tablet, 625 MG PO BID, (Reported) Diltiazem HCl (Diltiazem HCl) 30 Mg Tab, 30 MG PO BID, (Reported) Docusate Sodium (Dok) 100 Mg Capsule, 100 MG PO BID Ergocalciferol (Vitamin D2) (Vitamin D2) 50,000 Units Cap, 50,000 UNITS PO 1XWK, (Reported) FRIDAY EVENING Ferrous Sulfate (Ferrous Sulfate) 325 Mg Tab, 650 MG PO Q2D, (Reported) AT NIGHT Gabapentin (Neurontin) 300 Mg Cap, 300 MG PO BID, (Reported) Insulin Aspart (Novolog Flexpen) 100 Unit/Ml Inj, 1 DOSE SC AC, (Reported) PER SLIDING SCALE Insulin Degludec (Tresiba) 100 Unit/1 Ml Vial, 10 UNIT SC QHS, (Reported) Irbesartan (Irbesartan) 75 Mg Tab, 75 MG PO DAILY, (Reported) Pantoprazole Sodium (Pantoprazole Sodium) 40 Mg Tablet.dr, 40 MG PO BID Potassium Chloride (Klor-Con M10) 10 Meq Tabcr, 10 MEQ PO DAILY, (Reported) Rosuvastatin Calcium (Crestor) 20 Mg Tab, 20 MG PO DAILY, (Reported) Spironolactone (Spironolactone) 25 Mg Tab, 25 MG PO DAILY, (Reported) Torsemide (Torsemide) 10 Mg Tablet, 30 MG PO DAILY Scheduled PRN Albuterol Sulfate (Proair Hfa) 8.5 Gm Hfa.aer.ad, 2 PUFF INH QID PRN for SHORTNESS OF BREATH, (Reported) Ammonium Lactate (Ammonium Lactate) 12 % Cre, 1 DOSE TOP BID PRN for DRY SKIN, (Reported) APPLY TO FEET Mometasone Furoate Monohydrate (Nasonex) 120 [place]/17 Gm Naspr, 1 SPRAY NA DAILY PRN for NASAL CONGESTION, (Reported) Allergies Coded Allergies: Sulfa (Sulfonamide Antibiotics) (Verified Allergy, Severe, anaphylaxis, rash, 04/30/19) neomycin (Verified Allergy, Intermediate, rash, 04/30/19) ramipril (Verified Adverse Reaction, Intermediate, cough, 04/30/19) Dana Calles MD Aug 23, 2020 18:31
--- NOTE | 2020-08-24 14:44 | NOCOX ---
DATE: 08/22/2020 NOCTURNAL RECORDING OXIMETRY TRACING ORDERED BY: Dr. Dunn. Nocturnal recording oximetry was performed on BiLevel pressure therapy. Inspiratory pressure 23/expiratory 19. Baseline saturation was adequate at 93%. Lowest oxygen saturation reliably recorded was 87%. There was a mild hypoventilatory pattern around 5 a.m., but no pattern of significant variable desaturations were seen. IMPRESSION: Adequate nocturnal oximetry saturations on BiLevel pressure therapy inspiratory 23/expiratory 19.
== END 2020-08-23 15:18 | disposition home or self-care (01) | DRG 377 ==
LOC: M ED 11:02 → M ED INP 13:38 → ENRESERV 14:07 → M MSPAV 18:25
PROVIDERS: ADMIT Internal Medicine; ATTEND Internal Medicine
PROC: 30233N1 Transfusion of Nonautologous Red Blood Cells into Peripheral Vein, Percutaneous Approach (ICD-10-PCS; 2020-08-14)
PROC: 0DJ08ZZ Inspection of Upper Intestinal Tract, Via Natural or Artificial Opening Endoscopic (ICD-10-PCS; principal; 2020-08-16 13:00)
DX: K92.2 Gastrointestinal hemorrhage, unspecified (principal); I50.33 Acute on chronic diastolic (congestive) heart failure; I13.0 Hypertensive heart and chronic kidney disease with heart failure and stage 1 through stage 4 chronic kidney disease, or unspecified chronic kidney disease; I48.20 Chronic atrial fibrillation, unspecified; J98.11 Atelectasis; D50.9 Iron deficiency anemia, unspecified; K21.9 Gastro-esophageal reflux disease without esophagitis; K44.9 Diaphragmatic hernia without obstruction or gangrene; K28.9 Gastrojejunal ulcer, unspecified as acute or chronic, without hemorrhage or perforation; E66.9 Obesity, unspecified; E78.5 Hyperlipidemia, unspecified; E11.22 Type 2 diabetes mellitus with diabetic chronic kidney disease; N18.30 Chronic kidney disease, stage 3 unspecified; G47.33 Obstructive sleep apnea (adult) (pediatric); J44.9 Chronic obstructive pulmonary disease, unspecified; I70.0 Atherosclerosis of aorta; D50.0 Iron deficiency anemia secondary to blood loss (chronic); I27.20 Pulmonary hypertension, unspecified; Z98.84 Bariatric surgery status; Z85.3 Personal history of malignant neoplasm of breast; Z90.13 Acquired absence of bilateral breasts and nipples; Z95.3 Presence of xenogenic heart valve; Z90.49 Acquired absence of other specified parts of digestive tract; Z87.891 Personal history of nicotine dependence; Z79.01 Long term (current) use of anticoagulants; Z79.82 Long term (current) use of aspirin; Z79.4 Long term (current) use of insulin; Z79.899 Other long term (current) drug therapy; Z88.1 Allergy status to other antibiotic agents; Z88.2 Allergy status to sulfonamides; Z88.8 Allergy status to other drugs, medicaments and biological substances; Z68.34 Body mass index [BMI] 34.0-34.9, adult; Z20.822 Contact with and (suspected) exposure to COVID-19

== ENCOUNTER → 2020-08-28 | Outpatient (REF) | payer MEDICARE, OTHER ==
[~2020-08-28] MED LIST changes: +CEFA500C2; +CEFA500C2 PO; -CEFAD50CA; -CEFAD50CA PO; +DOK1CAP7 PO
[2020-08-28 13:39] LABS: HEMATOCRIT 36.2 % (36.0-47.0); HEMOGLOBIN 10.4 g/dl (12.0-15.5); MEAN CORPUSCULAR HEMOGLOBIN 27.6 pg (27.0-33.0); MEAN CORPUSCULAR HGB CONC 28.7 g/dl (32.0-36.5); PLATELET COUNT, AUTOMATED 130 10^3/uL (150-450); RED BLOOD COUNT 3.77 10^6/uL (4.00-5.40); WHITE BLOOD COUNT 8.9 10^3/uL (4.0-10.0)
[2020-08-28 14:10] LABS: CALCIUM LEVEL 9.2 MG/DL (8.8-10.2); CREATININE FOR GFR 1.57 MG/DL (0.55-1.30); GLOMERULAR FILTRATION RATE 34.9 (>45); POTASSIUM SERUM 5.3 MEQ/L (3.5-5.1)
== END ==
LOC: M SFHCPLAZ 10:43
PROVIDERS: ATTEND Family Medicine
DX: D50.8 Other iron deficiency anemias (principal); N18.32 Chronic kidney disease, stage 3b
CPT/HCPCS: 36415; 80048; 85027; G0463

== ENCOUNTER → 2020-09-18 | Outpatient (REF) | payer MEDICARE, OTHER ==
[2020-09-18 16:07] LABS: BASO % 0.2 % (0.0-1.0); EOS # 0.1 10^3/uL (0.0-0.5); EOS % 1.3 % (0.0-3.0); HEMATOCRIT 35.6 % (36.0-47.0); HEMOGLOBIN 10.9 g/dl (12.0-15.5); LYMPH # 0.9 10^3/uL (1.5-5.0); LYMPH % 10.1 % (24.0-44.0); MEAN CORPUSCULAR HEMOGLOBIN 27.3 pg (27.0-33.0); MEAN CORPUSCULAR HGB CONC 30.6 g/dl (32.0-36.5); MEAN CORPUSCULAR VOLUME 89.2 fl (80.0-96.0); MONO # 0.6 10^3/uL (0.0-0.8); MONO % 6.4 % (0.0-5.0); NEUTROPHILS # 7.2 10^3/uL (1.5-8.5); NEUTROPHILS % 81.7 % (36.0-66.0); PLATELET COUNT, AUTOMATED 183 10^3/uL (150-450); RED BLOOD COUNT 3.99 10^6/uL (4.00-5.40); WHITE BLOOD COUNT 8.8 10^3/uL (4.0-10.0)
[2020-09-18 16:41] LABS: ALBUMIN 3.2 GM/DL (3.2-5.2); BILIRUBIN,TOTAL 0.5 MG/DL (0.2-1.0); CREATININE FOR GFR 1.39 MG/DL (0.55-1.30); GLOMERULAR FILTRATION RATE 40.1 (>45); MAGNESIUM LEVEL 1.8 MG/DL (1.8-2.4); POTASSIUM SERUM 4.8 MEQ/L (3.5-5.1); TOTAL PROTEIN 6.4 GM/DL (6.4-8.2)
[2020-09-18 19:47] LABS: HEMOGLOBIN A1c 6.3 %
== END ==
LOC: M PLALAB 10:23
PROVIDERS: ATTEND Family Medicine
DX: I50.30 Unspecified diastolic (congestive) heart failure (principal); D50.9 Iron deficiency anemia, unspecified; E11.9 Type 2 diabetes mellitus without complications
CPT/HCPCS: 36415; 80053; 83036; 83735; 83880; 85025; G0463

== ENCOUNTER → 2020-10-19 | Outpatient (REF) | payer MEDICARE, OTHER ==
[~2020-10-19] MED LIST changes: +ASPI-569 PO; -ASPI81TAEC PO; +DEXT4TAB2 PO; -GLUC4CHW19 PO
[2020-10-19 12:52] LABS: BASO % 0.4 % (0.0-1.0); EOS # 0.1 10^3/uL (0.0-0.5); EOS % 1.7 % (0.0-3.0); HEMATOCRIT 37.5 % (36.0-47.0); HEMOGLOBIN 11.6 g/dl (12.0-15.5); LYMPH # 1.3 10^3/uL (1.5-5.0); LYMPH % 15.5 % (24.0-44.0); MEAN CORPUSCULAR HEMOGLOBIN 27.1 pg (27.0-33.0); MEAN CORPUSCULAR HGB CONC 30.9 g/dl (32.0-36.5); MEAN CORPUSCULAR VOLUME 87.6 fl (80.0-96.0); MONO # 0.5 10^3/uL (0.0-0.8); MONO % 6.4 % (2.0-8.0); NEUTROPHILS # 6.3 10^3/uL (1.5-8.5); NEUTROPHILS % 75.4 % (36.0-66.0); PLATELET COUNT, AUTOMATED 153 10^3/uL (150-450); RED BLOOD COUNT 4.28 10^6/uL (4.00-5.40); WHITE BLOOD COUNT 8.3 10^3/uL (4.0-10.0)
[2020-10-19 13:25] LABS: ALBUMIN 3.6 GM/DL (3.2-5.2); BILIRUBIN,TOTAL 0.3 MG/DL (0.2-1.0); CALCIUM LEVEL 9.3 MG/DL (8.8-10.2); CREATININE FOR GFR 1.39 MG/DL (0.55-1.30); GLOMERULAR FILTRATION RATE 40.1 (>45); POTASSIUM SERUM 4.2 MEQ/L (3.5-5.1); TROPONIN I 0.03 NG/ML (< 0.10)
== END ==
LOC: M SFHCPLAZ 10:25
PROVIDERS: ATTEND Family Medicine
DX: I50.30 Unspecified diastolic (congestive) heart failure (principal)
CPT/HCPCS: 36415; 80053; 83880; 84484; 85025; 95250; G0463

== ENCOUNTER → 2020-10-23 | Outpatient (REF) | payer MEDICARE, OTHER ==
[~2020-10-23] MED LIST changes: -DEXT4TAB2 PO; +SFHGLU4TA PO
[2020-10-23 18:09] LABS: ALBUMIN 3.5 GM/DL (3.2-5.2); BLOOD UREA NITROGEN 33 MG/DL (7-18); CARBON DIOXIDE LEVEL 31 MEQ/L (21-32); CHLORIDE LEVEL 106 MEQ/L (98-107); CREATININE FOR GFR 1.43 MG/DL (0.55-1.30); GLOMERULAR FILTRATION RATE 38.8 (>45); GLUCOSE, FASTING 145 MG/DL (70-100); MAGNESIUM LEVEL 2.1 MG/DL (1.8-2.4); NT-PRO BNP 2003 PG/ML (<125); PHOSPHORUS LEVEL 3.8 MG/DL (2.5-4.9); POTASSIUM SERUM 3.7 MEQ/L (3.5-5.1); SODIUM LEVEL 142 MEQ/L (136-145); TROPONIN I < 0.02 NG/ML (< 0.10)
== END ==
LOC: M SFHCPLAZ 15:17
PROVIDERS: ATTEND Physician Assistant
DX: I50.30 Unspecified diastolic (congestive) heart failure (principal)
CPT/HCPCS: 36415; 80069; 83735; 83880; 84484; 93005; G0463

== ENCOUNTER → 2020-10-25 | Outpatient (REF) | payer MEDICARE, OTHER ==
[~2020-10-25] MED LIST changes: +DEXT4TAB2 PO; -SFHGLU4TA PO
[2020-10-25 12:10] LABS: ALBUMIN 3.4 GM/DL (3.2-5.2); CALCIUM LEVEL 8.7 MG/DL (8.8-10.2); CREATININE FOR GFR 1.29 MG/DL (0.55-1.30); GLOMERULAR FILTRATION RATE 43.8 (>45); MAGNESIUM LEVEL 2.1 MG/DL (1.8-2.4); PHOSPHORUS LEVEL 4.4 MG/DL (2.5-4.9); POTASSIUM SERUM 3.9 MEQ/L (3.5-5.1)
== END ==
LOC: M SFHCPLAZ 09:49
PROVIDERS: ATTEND Physician Assistant
DX: I50.30 Unspecified diastolic (congestive) heart failure (principal)

== ENCOUNTER → 2020-10-27 | Outpatient (REF) | payer MEDICARE, OTHER ==
[2020-10-27 10:13] LABS: BASO % 0.3 % (0.0-1.0); EOS # 0.2 10^3/uL (0.0-0.5); EOS % 2.4 % (0.0-3.0); HEMATOCRIT 35.6 % (36.0-47.0); HEMOGLOBIN 11.1 g/dl (12.0-15.5); LYMPH % 12.1 % (24.0-44.0); MEAN CORPUSCULAR HEMOGLOBIN 27.8 pg (27.0-33.0); MEAN CORPUSCULAR HGB CONC 31.2 g/dl (32.0-36.5); MONO # 0.7 10^3/uL (0.0-0.8); MONO % 8.7 % (2.0-8.0); NEUTROPHILS % 76.1 % (36.0-66.0); PLATELET COUNT, AUTOMATED 163 10^3/uL (150-450); WHITE BLOOD COUNT 7.8 10^3/uL (4.0-10.0)
[2020-10-27 10:46] LABS: ALBUMIN 3.2 GM/DL (3.2-5.2); ALT/SGPT 16 U/L (12-78); BILIRUBIN,TOTAL 0.4 MG/DL (0.2-1.0); BLOOD UREA NITROGEN 32 MG/DL (7-18); CALCIUM LEVEL 8.7 MG/DL (8.8-10.2); CARBON DIOXIDE LEVEL 32 MEQ/L (21-32); CHLORIDE LEVEL 107 MEQ/L (98-107); CREATININE FOR GFR 1.44 MG/DL (0.55-1.30); GLOMERULAR FILTRATION RATE 38.5 (>45); GLUCOSE, FASTING 167 MG/DL (70-100); NT-PRO BNP 1846 PG/ML (<125); POTASSIUM SERUM 4.1 MEQ/L (3.5-5.1); SODIUM LEVEL 143 MEQ/L (136-145); TOTAL PROTEIN 6.4 GM/DL (6.4-8.2); TROPONIN I < 0.02 NG/ML (< 0.10)
== END ==
LOC: M SFHCPLAZ 08:45
PROVIDERS: ATTEND Family Medicine
DX: D50.9 Iron deficiency anemia, unspecified (principal); E11.9 Type 2 diabetes mellitus without complications; I50.30 Unspecified diastolic (congestive) heart failure

== ENCOUNTER → 2020-11-02 | Outpatient (REF) | payer MEDICARE, OTHER ==
[2020-11-02 15:35] LABS: ALBUMIN 3.3 GM/DL (3.2-5.2); CREATININE FOR GFR 1.36 MG/DL (0.55-1.30); GLOMERULAR FILTRATION RATE 41.2 (>45); POTASSIUM SERUM 3.6 MEQ/L (3.5-5.1)
== END ==
LOC: M SFHCPLAZ 12:49
PROVIDERS: ATTEND Physician Assistant
DX: E11.9 Type 2 diabetes mellitus without complications (principal)

== ENCOUNTER → 2020-11-06 | Outpatient (CLI) | payer MEDICARE, OTHER ==
[2020-11-06 15:55] LABS: CALCIUM LEVEL 8.6 MG/DL (8.8-10.2); CREATININE FOR GFR 1.5 MG/DL (0.55-1.30); GLOMERULAR FILTRATION RATE 36.8 (>45); MAGNESIUM LEVEL 1.8 MG/DL (1.8-2.4)
== END ==
LOC: M PLALAB 13:23
PROVIDERS: ATTEND Physician Assistant
DX: I50.32 Chronic diastolic (congestive) heart failure (principal)

== ENCOUNTER → 2020-12-05 | Outpatient (REF) | payer MEDICARE, OTHER ==
[~2020-12-05] MED LIST changes: -DEXT4TAB2 PO; +SFHGLU4TA PO
[2020-12-05 13:06] LABS: BASO % 0.4 % (0.0-1.0); EOS # 0.2 10^3/uL (0.0-0.5); EOS % 2.5 % (0.0-3.0); HEMATOCRIT 41.5 % (36.0-47.0); HEMOGLOBIN 13.1 g/dl (12.0-15.5); LYMPH # 1.3 10^3/uL (1.5-5.0); LYMPH % 13.5 % (24.0-44.0); MEAN CORPUSCULAR HEMOGLOBIN 27.2 pg (27.0-33.0); MEAN CORPUSCULAR HGB CONC 31.6 g/dl (32.0-36.5); MEAN CORPUSCULAR VOLUME 86.1 fl (80.0-96.0); MONO # 0.7 10^3/uL (0.0-0.8); MONO % 7.4 % (2.0-8.0); NEUTROPHILS # 7.3 10^3/uL (1.5-8.5); NEUTROPHILS % 75.5 % (36.0-66.0); PLATELET COUNT, AUTOMATED 158 10^3/uL (150-450); RED BLOOD COUNT 4.82 10^6/uL (4.00-5.40); WHITE BLOOD COUNT 9.7 10^3/uL (4.0-10.0)
[2020-12-05 13:25] LABS: HEMOGLOBIN A1c 6.9 %
[2020-12-05 13:44] LABS: ALBUMIN 3.5 GM/DL (3.2-5.2); BILIRUBIN,TOTAL 0.4 MG/DL (0.2-1.0); CALCIUM LEVEL 9.4 MG/DL (8.8-10.2); CREATININE FOR GFR 1.54 MG/DL (0.55-1.30); GLOMERULAR FILTRATION RATE 35.7 (>45); MAGNESIUM LEVEL 2.4 MG/DL (1.8-2.4); POTASSIUM SERUM 4.8 MEQ/L (3.5-5.1)
== END ==
LOC: M PLALAB 09:26
PROVIDERS: ATTEND Family Medicine
DX: I50.30 Unspecified diastolic (congestive) heart failure (principal); E11.9 Type 2 diabetes mellitus without complications

== ENCOUNTER → 2021-02-06 | Outpatient (CLI) | payer MEDICARE, OTHER ==
[~2021-02-06] MED LIST changes: +ERGO500029 PO
[2021-02-06 11:44] LABS: CREATININE FOR GFR 2.18 MG/DL (0.55-1.30); GLOMERULAR FILTRATION RATE 23.8 (>45); POTASSIUM SERUM 5.2 MEQ/L (3.5-5.1)
== END ==
LOC: M LAB 10:36
PROVIDERS: ATTEND Physician Assistant
DX: I50.32 Chronic diastolic (congestive) heart failure (principal)

== ENCOUNTER → 2021-02-20 | Outpatient (CLI) | payer MEDICARE, OTHER ==
[~2021-02-20] MED LIST changes: -CEFD1CAP8 PO; +CEFD300C41 PO; +COLC0.6T47 PO; +DOCU100C16 PO; +DOK1CAP4 PO; -DOK1CAP7 PO; -KLOR10TA76 PO; +LEVO750T13 PO; +LEXA1TAB PO; +METO5TAB2 PO; -MOME50SP; +MUPI2OI EXT; +NASO50SP3; +NYST10006 TOP; +OXYC-517 PO; +POTA-136 PO; +TRIA1OI TOP; +VITA-172 PO
[2021-02-20 18:14] LABS: CALCIUM LEVEL 8.4 MG/DL (8.8-10.2); CREATININE FOR GFR 2.11 MG/DL (0.55-1.30); GLOMERULAR FILTRATION RATE 24.7 (>45); POTASSIUM SERUM 4.9 MEQ/L (3.5-5.1)
== END ==
LOC: M PLALAB 14:57
PROVIDERS: ATTEND Physician Assistant
DX: I50.32 Chronic diastolic (congestive) heart failure (principal)

== ENCOUNTER → 2021-03-12 | Outpatient (CLI) | payer MEDICARE, OTHER ==
[2021-03-12 14:39] LABS: CALCIUM LEVEL 8.7 MG/DL (8.8-10.2); CREATININE FOR GFR 1.94 MG/DL (0.55-1.30); GLOMERULAR FILTRATION RATE 27.2 (>45); POTASSIUM SERUM 5.4 MEQ/L (3.5-5.1)
== END ==
LOC: M PLALAB 10:36
PROVIDERS: ATTEND Physician Assistant
DX: I50.32 Chronic diastolic (congestive) heart failure (principal)

== ENCOUNTER → 2021-03-12 | Outpatient (CLI) | payer MEDICARE, OTHER ==
[2021-03-12 14:18] LABS: BASO % 0.2 % (0.0-1.0); EOS # 0.1 10^3/uL (0.0-0.5); EOS % 1.2 % (0.0-3.0); HEMATOCRIT 32.5 % (36.0-47.0); HEMOGLOBIN 10.1 g/dl (12.0-15.5); LYMPH % 11.4 % (24.0-44.0); MEAN CORPUSCULAR HEMOGLOBIN 28.5 pg (27.0-33.0); MEAN CORPUSCULAR HGB CONC 31.1 g/dl (32.0-36.5); MEAN CORPUSCULAR VOLUME 91.8 fl (80.0-96.0); MONO # 0.6 10^3/uL (0.0-0.8); MONO % 7.1 % (2.0-8.0); NEUTROPHILS # 7.1 10^3/uL (1.5-8.5); NEUTROPHILS % 79.8 % (36.0-66.0); PLATELET COUNT, AUTOMATED 122 10^3/uL (150-450); RED BLOOD COUNT 3.54 10^6/uL (4.00-5.40); WHITE BLOOD COUNT 8.9 10^3/uL (4.0-10.0)
[2021-03-12 14:34] LABS: HEMOGLOBIN A1c 5.7 %
[2021-03-12 14:50] LABS: ALBUMIN 2.9 GM/DL (3.2-5.2); BILIRUBIN,TOTAL 0.3 MG/DL (0.2-1.0); CALCIUM LEVEL 8.5 MG/DL (8.8-10.2); CHOLESTEROL RISK RATIO 4.111 (<5); CREATININE FOR GFR 1.89 MG/DL (0.55-1.30); FREE T4 0.75 NG/DL (0.76-1.46); GLOMERULAR FILTRATION RATE 28.1 (>45); MAGNESIUM LEVEL 2.3 MG/DL (1.8-2.4); POTASSIUM SERUM 5.2 MEQ/L (3.5-5.1); THYROID STIMULATING HORMONE 1.21 uIU/ML (0.358-3.740); TOTAL PROTEIN 6.1 GM/DL (6.4-8.2)
== END ==
LOC: M PLALAB 10:33
PROVIDERS: ATTEND Family Medicine
DX: I50.32 Chronic diastolic (congestive) heart failure (principal); E11.9 Type 2 diabetes mellitus without complications; D50.9 Iron deficiency anemia, unspecified; E53.8 Deficiency of other specified B group vitamins; E78.2 Mixed hyperlipidemia; Z79.899 Other long term (current) drug therapy

== ENCOUNTER → 2021-03-19 | Outpatient (CLI) | payer MEDICARE, OTHER ==
[2021-03-19 17:48] LABS: CALCIUM LEVEL 7.9 MG/DL (8.8-10.2); CREATININE FOR GFR 1.9 MG/DL (0.55-1.30); GLOMERULAR FILTRATION RATE 27.9 (>45); POTASSIUM SERUM 3.7 MEQ/L (3.5-5.1)
== END ==
LOC: M PLALAB 15:38
PROVIDERS: ATTEND Physician Assistant
DX: I50.32 Chronic diastolic (congestive) heart failure (principal)

== ENCOUNTER → 2021-03-26 | Outpatient (CLI) | payer MEDICARE, OTHER ==
[~2021-03-26] MED LIST changes: +CEFD1CAP8 PO; -CEFD300C41 PO; -COLC0.6T47 PO; -DOCU100C16 PO; +KLOR10TA76 PO; -LEVO750T13 PO; -LEXA1TAB PO; -METO5TAB2 PO; +MOME50SP; -MUPI2OI EXT; -NASO50SP3; -NYST10006 TOP; -OXYC-517 PO; -POTA-136 PO; -TRIA1OI TOP; -VITA-172 PO
[2021-03-26 15:32] LABS: BASO % 0.3 % (0.0-1.0); EOS # 0.2 10^3/uL (0.0-0.5); EOS % 1.7 % (0.0-3.0); HEMATOCRIT 32.3 % (36.0-47.0); HEMOGLOBIN 10.1 g/dl (12.0-15.5); LYMPH # 1.1 10^3/uL (1.5-5.0); LYMPH % 10.3 % (24.0-44.0); MEAN CORPUSCULAR HEMOGLOBIN 28.9 pg (27.0-33.0); MEAN CORPUSCULAR HGB CONC 31.3 g/dl (32.0-36.5); MEAN CORPUSCULAR VOLUME 92.3 fl (80.0-96.0); MONO # 0.9 10^3/uL (0.0-0.8); MONO % 8.3 % (2.0-8.0); NEUTROPHILS # 8.2 10^3/uL (1.5-8.5); NEUTROPHILS % 78.8 % (36.0-66.0); PLATELET COUNT, AUTOMATED 225 10^3/uL (150-450); WHITE BLOOD COUNT 10.4 10^3/uL (4.0-10.0)
[2021-03-26 16:10] LABS: C REACTIVE PROTEIN QUANTITATIV 2.26 MG/DL (0.00-0.30); CALCIUM LEVEL 8.8 MG/DL (8.8-10.2); CREATININE FOR GFR 1.9 MG/DL (0.55-1.30); GLOMERULAR FILTRATION RATE 27.9 (>45); MAGNESIUM LEVEL 2.3 MG/DL (1.8-2.4); PERCENT SATURATION 13.8 % (13.2-45.0); PHOSPHORUS LEVEL 4.1 MG/DL (2.5-4.9); POTASSIUM SERUM 5.3 MEQ/L (3.5-5.1)
[2021-03-26 19:41] LABS: ERYTHROCYTE SEDIMENTATION RATE 126 mm/hr (0-30)
== END ==
LOC: M PLALAB 11:45
PROVIDERS: ATTEND Family Medicine
DX: D50.9 Iron deficiency anemia, unspecified (principal); M17.10 Unilateral primary osteoarthritis, unspecified knee

== ENCOUNTER → 2021-04-17 | Outpatient (CLI) | payer MEDICARE, OTHER ==
[~2021-04-17] MED LIST changes: -KLOR10TA76 PO; +POTA-136 PO
--- NOTE | 2021-04-17 13:51 | REP ---
INDICATION: CELLULITIS OF RIGHT LOWER LIMB. COMPARISON: None. TECHNIQUE: Four views FINDINGS: No acute fracture or destructive osseous lesion. The mortise is intact. Plantar and retrocalcaneal heel spurs are noted. IMPRESSION: Chronic changes as described above. <Electronically signed by Sameer Ramos > 04/17/21 [id number]
--- NOTE | 2021-04-17 14:07 | REP ---
INDICATION: CELLULITIS OF RIGHT LOWER LIMB. COMPARISON: None. TECHNIQUE: Four views of the right foot are provided. FINDINGS: Four views of the right foot demonstrate mild diffuse osteopenia. There is fairly extensive vascular calcification across the ankle into the hindfoot. There is plantar calcaneal spurring. No acute bony abnormality is seen. Is no fracture or subluxation is seen. No opaque foreign body noted. IMPRESSION: Extensive vascular calcification. Diffuse osteopenia. Heel spurs. <Electronically signed by Guido Hirsch > 04/17/21 [id number]
[2021-04-17 15:20] LABS: BASO # 0.1 10^3/uL (0.0-0.2); BASO % 0.4 % (0.0-1.0); EOS # 0.1 10^3/uL (0.0-0.5); EOS % 0.7 % (0.0-3.0); HEMATOCRIT 39.5 % (36.0-47.0); HEMOGLOBIN 12.8 g/dl (12.0-15.5); LYMPH # 1.6 10^3/uL (1.5-5.0); MEAN CORPUSCULAR HEMOGLOBIN 29.6 pg (27.0-33.0); MEAN CORPUSCULAR HGB CONC 32.4 g/dl (32.0-36.5); MEAN CORPUSCULAR VOLUME 91.2 fl (80.0-96.0); MONO # 0.8 10^3/uL (0.0-0.8); MONO % 6.7 % (2.0-8.0); NEUTROPHILS # 9.1 10^3/uL (1.5-8.5); NEUTROPHILS % 77.8 % (36.0-66.0); PLATELET COUNT, AUTOMATED 168 10^3/uL (150-450); RED BLOOD COUNT 4.33 10^6/uL (4.00-5.40); WHITE BLOOD COUNT 11.7 10^3/uL (4.0-10.0)
[2021-04-17 15:43] LABS: ERYTHROCYTE SEDIMENTATION RATE 59 mm/hr (0-30)
[2021-04-17 15:47] LABS: ALBUMIN 3.9 GM/DL (3.2-5.2); C REACTIVE PROTEIN QUANTITATIV 0.3 MG/DL (0.00-0.30); CALCIUM LEVEL 9.1 MG/DL (8.8-10.2); CREATININE FOR GFR 2.46 MG/DL (0.55-1.30); GLOMERULAR FILTRATION RATE 20.7 (>45); MAGNESIUM LEVEL 2.2 MG/DL (1.8-2.4); POTASSIUM SERUM 4.8 MEQ/L (3.5-5.1); URIC ACID 10.4 MG/DL (2.6-6.0)
== END ==
LOC: M PLAIMG 11:18
PROVIDERS: ATTEND Physician Assistant
DX: M85.871 Other specified disorders of bone density and structure, right ankle and foot (principal); M77.31 Calcaneal spur, right foot; L03.115 Cellulitis of right lower limb; R60.0 Localized edema; R23.8 Other skin changes; I50.30 Unspecified diastolic (congestive) heart failure
CPT/HCPCS: 36415; 73610; 73630; 80069; 83735; 83880; 84550; 85025; 85652; 86140; G0463

== ENCOUNTER → 2021-05-07 | Outpatient (CLI) | payer MEDICARE, OTHER ==
[2021-05-07 14:01] LABS: BASO % 0.3 % (0.0-1.0); EOS # 0.1 10^3/uL (0.0-0.5); EOS % 0.5 % (0.0-3.0); HEMOGLOBIN 10.8 g/dl (12.0-15.5); LYMPH # 0.9 10^3/uL (1.5-5.0); LYMPH % 9.8 % (24.0-44.0); MEAN CORPUSCULAR HEMOGLOBIN 30.3 pg (27.0-33.0); MEAN CORPUSCULAR HGB CONC 32.7 g/dl (32.0-36.5); MEAN CORPUSCULAR VOLUME 92.4 fl (80.0-96.0); MONO # 0.7 10^3/uL (0.0-0.8); MONO % 7.5 % (2.0-8.0); NEUTROPHILS # 7.6 10^3/uL (1.5-8.5); NEUTROPHILS % 81.4 % (36.0-66.0); PLATELET COUNT, AUTOMATED 175 10^3/uL (150-450); RED BLOOD COUNT 3.57 10^6/uL (4.00-5.40); WHITE BLOOD COUNT 9.4 10^3/uL (4.0-10.0)
[2021-05-07 15:28] LABS: ALBUMIN 3.5 GM/DL (3.2-5.2); BILIRUBIN,TOTAL 0.4 MG/DL (0.2-1.0); CALCIUM LEVEL 8.9 MG/DL (8.8-10.2); CREATININE FOR GFR 2.96 MG/DL (0.55-1.30); GLOMERULAR FILTRATION RATE 16.7 (>45); MAGNESIUM LEVEL 2.3 MG/DL (1.8-2.4); POTASSIUM SERUM 6.7 MEQ/L (3.5-5.1); TOTAL PROTEIN 6.8 GM/DL (6.4-8.2)
== END ==
LOC: M PLALAB 12:45
PROVIDERS: ATTEND Physician Assistant
DX: L03.115 Cellulitis of right lower limb (principal); R23.8 Other skin changes; I50.30 Unspecified diastolic (congestive) heart failure; R60.0 Localized edema

== ENCOUNTER → 2021-05-08 | Outpatient (CLI) | payer MEDICARE, OTHER ==
[~2021-05-08] MED LIST changes: +COLC0.6T47 PO; +DOCU100C16 PO; +LEVO750T13 PO; +LEXA1TAB PO; +METO5TAB2 PO; +MUPI2OI EXT; +NYST10006 TOP; +OXYC-517 PO; +TRIA1OI TOP; +VITA-172 PO
--- NOTE | 2021-05-08 10:22 | REP ---
INDICATION: CONTUS OF SCALP, CONSTUS OF LT HAND LABS, CT AND XR. Struck head on washer veneer drier feeder. COMPARISON: Comparison brain MRI study of April 12, 2020. TECHNIQUE: Helical scanning is acquired. 5 mm axial images were reformatted. Coronal MPR images were generated. FINDINGS: Preliminary digital second hand radiograph is unremarkable. Bone window settings demonstrate intact bony calvarium. No skull fracture or bony destructive lesion is seen. The visualized paranasal sinuses are clear. No intraorbital abnormality is seen. Lateral, 3rd, and 4th ventricles are normal in size and position. Joyce-white differentiation pattern is normal above and below the tentorium. There is no evidence of intracranial hemorrhage. No extra-axial fluid collection is seen. No mass, infarct, or midline shift is observed. There is mild generalized volume loss. IMPRESSION: Minimal generalized volume loss. No skull fracture or intracranial injury. No acute intracranial abnormality. <Electronically signed by Guido Hirsch > 05/08/21 [id number]
--- NOTE | 2021-05-08 10:33 | REP ---
INDICATION: CONTUS OF SCALP, CONSTUS OF LT HAND LABS, CT AND XR. COMPARISON: None. TECHNIQUE: AP and lateral views of the left forearm. FINDINGS: AP and latter views of the left forearm demonstrate diffuse osteopenia and extensive vascular calcification. No fracture or subluxation is seen. No opaque foreign body noted. IMPRESSION: Vascular calcification. Otherwise negative left forearm. No fracture or subluxation seen. <Electronically signed by Guido Hirsch > 05/08/21 [id number]
--- NOTE | 2021-05-08 10:33 | REP ---
INDICATION: CONTUS OF SCALP, CONSTUS OF LT HAND LABS, CT AND XR. COMPARISON: None. TECHNIQUE: Four views of the left wrist are provided. FINDINGS: There is diffuse osteopenia. Extensive vascular calcification is noted. Lateral view shows some soft tissue swelling dorsally over the carpus. No fracture is evident. No subluxation seen. No opaque foreign body noted. IMPRESSION: Diffuse osteopenia. Extensive vascular calcification. Dorsal soft tissue swelling. No fracture seen. <Electronically signed by Guido Hirsch > 05/08/21 [id number]
--- NOTE | 2021-05-08 10:35 | REP ---
INDICATION: CONTUS OF SCALP, CONSTUS OF LT HAND LABS, CT AND XR. COMPARISON: None. TECHNIQUE: Four views of the left hand are provided. FINDINGS: Four views of the left hand demonstrate diffuse osteopenia. Extensive vascular calcification is seen extending into the digital arteries. A metallic ring is over the proximal phalanx of the ring finger. There is no evidence of fracture or subluxation. No opaque foreign body noted. IMPRESSION: No fracture or subluxation noted. Vascular calcification and diffuse osteopenia. <Electronically signed by Guido Hirsch > 05/08/21 [id number]
[2021-05-08 11:18] LABS: CALCIUM LEVEL 9.4 MG/DL (8.8-10.2); CREATININE FOR GFR 2.7 MG/DL (0.55-1.30); GLOMERULAR FILTRATION RATE 18.6 (>45); POTASSIUM SERUM 5.7 MEQ/L (3.5-5.1)
== END ==
LOC: M LAB 09:40
PROVIDERS: ATTEND Physician Assistant Medical
DX: S60.222A Contusion of left hand, initial encounter (principal); S50.12XA Contusion of left forearm, initial encounter; S00.03XA Contusion of scalp, initial encounter; X58.XXXA Exposure to other specified factors, initial encounter; Y92.9 Unspecified place or not applicable; Y93.9 Activity, unspecified; Y99.9 Unspecified external cause status; E87.5 Hyperkalemia; M85.80 Other specified disorders of bone density and structure, unspecified site; I70.8 Atherosclerosis of other arteries
CPT/HCPCS: 36415; 70450; 73090; 73110; 73130; 80048; 83880; G0463

== ENCOUNTER → 2021-05-09 | Outpatient (CLI) | payer MEDICARE, OTHER ==
[~2021-05-09] MED LIST changes: -COLC0.6T47 PO; -DOCU100C16 PO; -LEVO750T13 PO; -LEXA1TAB PO; -METO5TAB2 PO; -MUPI2OI EXT; -NYST10006 TOP; -OXYC-517 PO; -TRIA1OI TOP; -VITA-172 PO
[2021-05-09 18:47] LABS: CALCIUM LEVEL 8.5 MG/DL (8.8-10.2); CREATININE FOR GFR 2.86 MG/DL (0.55-1.30); GLOMERULAR FILTRATION RATE 17.4 (>45); POTASSIUM SERUM 3.7 MEQ/L (3.5-5.1)
== END ==
LOC: M PLALAB 13:47
PROVIDERS: ATTEND Physician Assistant Medical
DX: E87.5 Hyperkalemia (principal)

== ENCOUNTER → 2021-05-15 | Outpatient (CLI) | payer MEDICARE, OTHER ==
[~2021-05-15] MED LIST changes: +COLC0.6T47 PO; +DOCU100C16 PO; +LEXA1TAB PO; +METO5TAB2 PO; +MUPI2OI EXT; +TRIA1OI TOP; +VITA-172 PO
[2021-05-15 19:11] LABS: CALCIUM LEVEL 8.8 MG/DL (8.8-10.2); CREATININE FOR GFR 1.68 MG/DL (0.55-1.30); GLOMERULAR FILTRATION RATE 32.2 (>45); POTASSIUM SERUM 2.9 MEQ/L (3.5-5.1)
== END ==
LOC: M PLALAB 13:29
PROVIDERS: ATTEND Family Medicine
DX: E87.5 Hyperkalemia (principal)

== ENCOUNTER 2021-05-16 15:41 | Inpatient (IN) | payer MEDICARE, OTHER ==
[~2021-05-16] VITALS: Ht 167.6 cm; Wt 78.6 kg
[~2021-05-16 15:41] MED LIST changes: -COLC0.6T47 PO; -DOCU100C16 PO; -LEXA1TAB PO; -METO5TAB2 PO; -MUPI2OI EXT; -TRIA1OI TOP; -VITA-172 PO
--- NOTE | 2021-05-16 16:53 | HPEPDOC ---
[facility] Medical History & Physical Date of Admission May 16, 2021 Date of Service: May 16, 2021 Attending Physician: Dana Calles MD History and Physical CHIEF COMPLAINT: necrotic toes HISTORY OF PRESENT ILLNESS: Patient is a 69 y/o F with extensive past medical history listed below who presented as a direct admission from Dr. Kahn's office (podiatry) with the chief concern of necrotic 4th and 5th digits of right foot. The patient states that approximately 2 weeks ago she dropped a bottle of shampoo on her foot in the area with a necrotic toes are. She says she noticed 3 days ago that the toes were discolored and gradually worsened. She was being followed by her primary care provider for gout in that foot and he had sent her to podiatry to get further evaluated. Upon evaluation by Dr. Kahn who knows the patient well, his concern was ischemia of the fourth and fifth digits of the right foot. He then called to direct admit the patient to the hospital for further evaluation by vascular surgery. On exam the patient denies any feeling of the fourth and fifth digit of the right foot, she also cannot move them on command. The digits are cold to touch and black in color. She states at home she uses a cane to ambulate. She also has a concerning necrotic area over the Achilles tendon of the lower right leg. The patient had labs done on 05/15/2021 which showed hypokalemia, chronic kidney disease with creatinine of 1.6. The case was discussed with vascular surgery transformation analyst who will evaluate today. The patient was admitted as inpatient for further evaluation/treatment of ischemic digits of the right foot. REVIEW OF SYSTEMS: Neg except mentioned above PAST MEDICAL HISTORY: HFpEF, EF 75% Chronic iron deficiency anemia GERD/hiatal hernia Obesity s/p Danielle-En-Y Atrial Fibrillation on eliquis Hypertension Type 2 diabetes, IDDM duodenal ulcer/gastric pouch ulceration/hx of upper GI bleed Esophagitis metaplasia, mild Sinusitis chronic Allergic rhinitis Dyslipidemia COPD DAVIDSON Diabetic retinopathy status post laser eye surgery History of breast cancer status post mastectomy Moderate atheroma in distal aortic arch and descending thoracic aorta Tubular adenoma in colon Lumbar spondylosis Severe pulmonary arterial pressure 74 mmHg Severe pulmonary hypertension Carotid stenosis Hx of gout PAST SURGICAL HISTORY: Hysterectomy/JENNIFER BSO for noncancerous reasons Gastric bypass in 2006 Bladder elevation in Left breast US guided biopsy 01/20/2015 Left breast lumpectomy 03/2015 Bilateral mastectomy Aortic Valve replacement with bioprosthetic valve in 2010 Cholecystectomy in 07/2018 SOCIAL HISTORY: Prior smoker for 20 years, quit 25-30 years ago. Smoked 3 PPD. Denies alcohol or drug use. PCP- Dr. Bruno Lennon, Area Attendant- Dr. Ortiz/Kathi. Full code Lives at home. FAMILY HISTORY: mother- liver cancer. at 41 y/o father- CAD, DM . at 80 y/o ALLERGIES: Please see below. HOME MEDICATIONS: Please see below. PHYSICAL EXAMINATION: VS: Please see above CONSTITUTIONAL: No acute distress, AAO x 3 EYES: PERRLA, EOM intact HENT, MOUTH: Normocephalic, atraumatic, moist mucous membranes NECK: SUPPLE, no JVD, no lymphadenopathy, no carotid bruit CV: Regular rate and rhythm, S1S2 normal, no murmurs/rubs/gallops RESPIRATORY: Crackles in post lung ocampo-minimal. no rales/rhonchi/wheezes GI: BS positive in 4 quadrants, soft, nontender, nondistended, no rebound or guarding, no organomegaly : Deferred MUSCULOSKELETAL: Normal ROM. No cyanosis, clubbing, swelling, joint deformity, +1-2 pitting lower extremity edema INTEGUMENTARY: 6 cm necrotic wounds over the right lower extremity Achilles tendon area of leg, black and and cold fourth and fifth digit of the right foot. Reddened area around the fourth and fifth right foot digits; however, not warm to touch. Several crusted wounds anteriorly of the right and. There is a 3 cm wound of the left anterior alvarado. no rashes, NEUROLOGIC: Cranial Nerves II-XII are intact. Decreased sensation to fine and dull touch in the fourth and fifth digit of the right foot PSYCHIATRIC: Mood and affect are normal LABORATORY DATA: Pending IMAGING: None ASSESSMENT: 69 y/o F with extensive past medical history above admitted for right foot 4th and 5th digit ischemia requiring vascular surgery evaluation. PLAN: #Right foot 4th,5th digit ischemia, necrosis. -Hx of DM, signs of arterial disease on imaging done in past -Trauma sustained to foot 2 weeks ago, worsened over 3 days -F/u CBC, PT/PTT/INR, CMP -Starting on prophylactic zosyn, anticoagulation with home eliquis for now -Due to elevated Cr cannot do angiogram at this time. D/w vascular surgery and will see today. F/u recommendations. Can consult Dr. Kahn after evaluation by vascular complete. #Hypokalemia -Seen on labs 05/15/21 -F/u labs today #CKD stage III -Cr 1.6; however, when cr trended baseline is 1.5-2.8 -F/u labs -REcommend connecting with nephrology prior to discharge this admission #Chronic iron deficiency anemia likely 2/2 to slow (possibly chronic from history) GI bleed, on eliquis and ASA at home -Hx of duodenal ulcer/gastric pouch ulceration/hx of upper GI bleed, esophagitis with metaplasia -No s/s of bleeding -Low iron history with iron supplement every other day -Discussed in detail with Dr. Ortiz (Cardiology) on prior admission who is cautious to take patient off Eliquis due to severe pulmonary arterial HTN, CHF, bioprosthetic valve and atrial fibrillation. -Also on prior admission Dr. Shea (general surgery) suggested o/p upper and lower scope but not done. If worsens, can consult. -Hx of needing transusions -F/u CBC daily, c/w home meds. HFpEF without exacerbation -Stable, asymptomatic. -C/w home meds -Tele, I&O's, daily wt A. fib, chronic and rate controlled -C/w CCB, BB, eliquis BID Hyperlipidemia. -C/w Crestor. COPD, not currently in exacerbation -C/w home meds DM type II -C/w levemir HS, ISS, AC/HS FS, consistent carb diet #HTN -C/w home meds DAVIDSON -Can use home Bipap Hx of GERD, PUD -C/w sucralfate, PPI but BID DVT px -Eliquis BID, scd/teds DISPOSITION: Vascular consulted, f/u recommendations. Admitted inpatient. Home Medications Scheduled Acetaminophen (Tylenol Arthritis) 650 Mg Tablet.er, 1,300 MG PO BID Apixaban (Eliquis) 5 Mg Tab, 5 MG PO BID Aspirin (Aspirin EC) 81 Mg Tablet.dr, 81 MG PO DAILY Bisoprolol Fumarate (Bisoprolol Fumarate) 5 Mg Tab, 5 MG PO DAILY Brinzolamide/Brimonidine Tart (Simbrinza 1%-0.2% Eye Drops) 1 Shaniqua Shaniqua, 1 DROP OU BID Calcium Carbonate/Vitamin D3 (Calcium 600-Vit D3 400 Tablet) 1 Each Tablet, 1 TAB PO DAILY Cefadroxil Monohydrate (Cefadroxil) 500 Mg Capsule, 1,000 MG PO BID Colesevelam Hydrochloride (Welchol) 625 Mg Tablet, 625 MG PO BID Diltiazem HCl (Diltiazem HCl) 30 Mg Tab, 30 MG PO BID Docusate Sodium (Dok) 100 Mg Capsule, 100 MG PO BID Ergocalciferol (Vitamin D2) (Vitamin D2) 50,000 Units Cap, 50,000 UNITS PO 1XWK WEDNES EVENING Ferrous Sulfate (Ferrous Sulfate) 325 Mg Tab, 650 MG PO Q2D AT NIGHT Gabapentin (Neurontin) 300 Mg Cap, 300 MG PO BID Insulin Aspart (Novolog Flexpen) 100 Unit/Ml Inj, 1 DOSE SC AC PER SLIDING SCALE Insulin Degludec (Tresiba) 100 Unit/1 Ml Vial, 10 UNIT SC QHS Irbesartan (Irbesartan) 75 Mg Tab, 75 MG PO DAILY Pantoprazole Sodium (Pantoprazole Sodium) 40 Mg Tablet.dr, 40 MG PO BID Potassium Chloride (Klor-Con M10) 10 Meq Tabcr, 10 MEQ PO DAILY Rosuvastatin Calcium (Crestor) 20 Mg Tab, 20 MG PO DAILY Spironolactone (Spironolactone) 25 Mg Tab, 25 MG PO DAILY Torsemide (Torsemide) 10 Mg Tablet, 30 MG PO DAILY Scheduled PRN Albuterol Sulfate (Proair Hfa) 8.5 Gm Hfa.aer.ad, 2 PUFF INH QID PRN for SHORTNESS OF BREATH Ammonium Lactate (Ammonium Lactate) 12 % Cre, 1 DOSE TOP BID PRN for DRY SKIN APPLY TO FEET Mometasone Furoate Monohydrate (Nasonex) 120 [place]/17 Gm Naspr, 1 SPRAY NA DAILY PRN for NASAL CONGESTION Allergies Coded Allergies: Sulfa (Sulfonamide Antibiotics) (Verified Allergy, Severe, anaphylaxis, rash, 04/30/19) neomycin (Verified Allergy, Intermediate, rash, 04/30/19) ramipril (Verified Adverse Reaction, Intermediate, cough, 04/30/19) A-FIB/CHADSVASC A-FIB History Current/History of A-Fib/PAF?: Yes Current PO Anticoag Therapy: Yes Age/Risk Factor Scoring CHADSVASC: CHADSVASC Response (Comments) Value Age Risk Factor Age 65-74 years old 1 Gender Risk Factor Female 1 Hx of CHF Yes 1 Hx of HTN Yes 1 Hx of Stroke/TIA/or VTE No 0 Hx of Diabetes Yes 1 Hx of Vascular Disease Yes 1 Total 6 Treatment Treatment ordered: Other Other anticoagulant ordered: Dana Cheek MD May 16, 2021 16:53
[2021-05-16] MEDS: TORSEMIDE 10 MG TABLET PO SCH (17:00)
[2021-05-16 17:26] LABS: BASO % 0.2 % (0.0-1.0); EOS # 0.1 10^3/uL (0.0-0.5); EOS % 1.1 % (0.0-3.0); HEMATOCRIT 31.1 % (36.0-47.0); HEMOGLOBIN 10.4 g/dl (12.0-15.5); LYMPH # 0.8 10^3/uL (1.5-5.0); MEAN CORPUSCULAR HEMOGLOBIN 30.1 pg (27.0-33.0); MEAN CORPUSCULAR HGB CONC 33.4 g/dl (32.0-36.5); MEAN CORPUSCULAR VOLUME 89.9 fl (80.0-96.0); MONO # 0.9 10^3/uL (0.0-0.8); MONO % 9.6 % (2.0-8.0); NEUTROPHILS # 7.9 10^3/uL (1.5-8.5); NEUTROPHILS % 80.5 % (36.0-66.0); PLATELET COUNT, AUTOMATED 175 10^3/uL (150-450); RED BLOOD COUNT 3.46 10^6/uL (4.00-5.40); WHITE BLOOD COUNT 9.8 10^3/uL (4.0-10.0)
[2021-05-16 17:39] VITALS: BP 140/65
[2021-05-16 17:39] LABS: INR 1.23; PARTIAL THROMBOPLASTIN TIME 37.3 SECONDS (25.9-37.0); PROTHROMBIN TIME 15.9 SECONDS (12.7-14.5)
[2021-05-16 17:51] LABS: ALBUMIN 2.7 GM/DL (3.2-5.2); BILIRUBIN,TOTAL 0.5 MG/DL (0.2-1.0); CALCIUM LEVEL 8.6 MG/DL (8.8-10.2); CREATININE FOR GFR 1.5 MG/DL (0.55-1.30); GLOMERULAR FILTRATION RATE 36.7 (>45); POTASSIUM SERUM 2.9 MEQ/L (3.5-5.1); TOTAL PROTEIN 6.1 GM/DL (6.4-8.2)
[2021-05-16 18:20] VITALS: BP 166/73
--- NOTE | 2021-05-16 18:48 | CR.PDOC ---
General Date of Consultation: May 16, 2021 (400 pm) Referring Provider: BALAJI AMEZQUITA MD Attending Physician: Piper Castañeda MD Consultation REASON FOR CONSULTATION/CHIEF COMPLAINT: Gangrene right fourth and fifth toes, peripheral arterial disease HISTORY OF PRESENT ILLNESS: The patient is a 70y/o F, who is a direct admit from Dr. Kahn's office (podiatry) with the chief concern of necrotic 4th and 5th digits of right foot. The patient is awake alert and appropriately responsive, relevant history has been obtained from the patient. She noticed that the right fourth and fifth toes were turning black about 3 to 4 days ago. 3 weeks ago she dropped a bottle of shampoo on the toes. Since the past 6 weeks, she has been having pain constantly, in the right leg, from the below-knee level and distally, at all times which was aching, and throbbing. This was associated with redness of the right leg and the foot, from the knee, for the past 6 weeks. She denies any fever chills or rigors. She denies any loss of appetite or weight. The patient has diabetes mellitus and diabetic neuropathy with numbness of the feet. However her current symptoms are only in the right lower extremity. Because of the soreness she was using a cane to ambulate. Also for the past 6 weeks, she has not been ambulating much, except going to the bathroom. She has history of atrial fibrillation, and was on Eliquis, which was stopped by her primary care physician 6 weeks ago. She fell 3 weeks ago on 05/06/2021, and presented to the emergency room on 05/07/2021, with sore left arm and left side of the body. She was being followed by her primary care provider for cellulitis/gout in that foot and was treated with antibiotics. X-ray of the right ankle and the foot on 04/17/2021 revealed no acute fracture or findings. There were chronic changes. Cellulitis was noted. She was further referred to podiatry for further evaluation by Dr. Kahn - who was concerned for ischemia of the fourth and fifth digits of the right foot, and sent her to the hospital for admission to the hospitalist and for further evaluation by vascular surgery. The patient does not walk much, and does not have symptoms suggestive of claudication. 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 It seems like she was initially treated for hyperkalemia, with Kayexalate. However The labs done on 05/15/2021 revealed significant hypokalemia-with a potassium of 2.9, and chronic kidney disease with creatinine of 1.6. The ESR was 59. The patient's other significant past medical history as enumerated below include diabetes mellitus, with nephropathy, retinopathy, and neuropathy, atrial fibrillation-for which she was treated with Eliquis ~6 weeks ago, when it was stopped by her primary care physician. She has history of severe aortic stenosis, for which she had a bioprosthetic valve replacement in May 2011 at [facility]. She also has history of congestive heart failure, with severe pulmonary hypertension-right ventricular systolic pressures of 74 on echo in April 2020. She had Danielle-en-Y gastric bypass surgery, for morbid obesity, years ago, after which she lost significant weight. She has iron deficiency and B12 deficient anemia. She also has significant GERD with a hiatal hernia, GI bleed-noted to be secondary to gastric pouch ulceration on EGD in 2012. She was evaluated for peripheral arterial disease, with right lower extremity arterial ultrasound on 07/23/2018, which revealed biphasic and triphasic waveforms, to the mid superficial femoral artery, and monophasic waveforms, from the distal superficial femoral artery. Carotid ultrasound on 05/10/2020 revealed right internal carotid artery stenosis of 70%, with velocities of 307/83 mmHg, ratio of 3.83 and left internal carotid artery stenosis of 50 to 69%, with the velocities of 176/25 and ratio of 2.07. At the time she was also noted to have 3.3 cm right thyroid nodules. She had colonoscopy with polypectomy which revealed a tubular adenoma, bilateral mastectomies, for breast cancer, open cholecystectomy, CBD stone removal in July 2018. PAST MEDICAL HISTORY: HFpEF, EF 75%, Severe pulmonary hypertension - pulmonary arterial pressure 74 mmHg-on echo 04/18/2020 Chronic iron deficiency and B12 deficiency anemia GERD/hiatal hernia, history of upper GI bleed from ulceration at the gastrojejunal anastomosis of the gastric pouch Obesity s/p Danielle-En-Y gastric bypass for weight loss Atrial Fibrillation - was on eliquis ~6 weeks ago Hypertension Type 2 diabetes, IDDM-with nephropathy, retinopathy and neuropathy Esophagitis metaplasia, mild Sinusitis chronic Allergic rhinitis Dyslipidemia COPD DAVIDSON Moderate atheroma in distal aortic arch and descending thoracic aorta-noted on ENRIQUETA on 08/07/2016 Tubular adenoma in colon Lumbar spondylosis Bilateral asymptomatic carotid stenoses : Noted on ultrasound on 05/10/2020 Hx of gout PAST SURGICAL HISTORY: Hysterectomy/JENNIFER BSO for noncancerous reasons Diabetic retinopathy status post laser eye surgery History of breast cancer status post mastectomy Gastric bypass in 2006, for morbid obesity Bladder suspension in 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 Smoked 3 PPD. Denies alcohol or drug use. PCP- Dr. Bruno Lennon, Sports Agent- Dr. Ortiz/Kathi. Full code Lives at home, with her 73-year-old . FAMILY HISTORY: mother-colon cancer. at 41 y/o. History of breast cancer, and a paternal grandmother and maternal aunts father- CAD, DM . at 80 y/o ALLERGIES: Please see below. HOME MEDICATIONS: Please see below. PHYSICAL EXAMINATION: VS: Please see above CONSTITUTIONAL: Moderately obese lady, in no acute distress, AAO x 3 EYES: Pallor+, no icterus HENT, MOUTH: Normocephalic, atraumatic NECK: SUPPLE, no JVD, bilateral faint carotid bruits-left more than right, decreased right carotid impulse CV: Regular rate and rhythm, S1S2 normal, ESM 3/6 murmurs-bilateral second intercostal spaces Vascular: She is right-handed. Bilateral radial pulses +2 palpable. The right femoral pulse is 1+, and the left femoral pulse is 2+ palpable. Bilateral popliteal and pedal pulses are not palpable. Extremities: The skin on both the lower extremities, from the knees distally, is dry, with superficial dermis peeling off. The right lower extremity is erythematous, from the knee distally, including the foot and the toes. There are cellulitic changes, with areas of dry gangrenous patches on the skin, on the medial aspect of the ankle-around the medial malleolus, measuring 5 x 5 cm, with indeterminable depth. There is about a 10 cm area of linear dry gangrenous patch, overlying the Achilles tendon in the lower posterior calf. There is a 2 x 1 cm dry gangrenous area in the right lateral heel. The right fourth and fifth toes are completely gangrenous, with foul odor. However no significant drainage has been noted. There is significant erythema of the right forefoot, immediately proximal to the gangrenous toes, with significant tenderness on palpation. RESPIRATORY: Bilateral equal air entry, decreased at the bases. No rales/rhonchi/wheezes GI: Obese , soft, nontender. Open cholecystectomy scar NEUROLOGIC: Grossly nonfocal exam, with decreased sensation to fine touch in both the feet PSYCHIATRIC: Cooperative, mood and affect are normal LABORATORY DATA: Current labs are pending. The past results have been reviewed IMAGING: Relevant past imaging has been reviewed ASSESSMENT: 70 y/o F with extensive past medical history as above, hospitalized for right foot 4th and 5th toes gangrene, with possible underlying osteomyelitis, and extensive cellulitis of the right foot and the right lower extremity, associated with peripheral arterial disease, compounded by trauma. She has known history of peripheral arterial disease, as evidenced by her ultrasound performed in July 2018, although she was not very ambulant till the past 6 weeks, to be symptomatic enough. She also has chronic kidney disease, and significant hypokalemia/electrolyte imbalance-which need to be corrected. She is a known diabetic, with systemic complications. She also has history of bilateral carotid artery disease. PLAN: 1. Suggest initiation of broad-spectrum antibiotics, for cellulitis of the right lower extremity, associated with possible osteomyelitis and gangrene of the right fourth and fifth toes. 2. Suggest MRI of the right foot-to rule out osteomyelitis. Podiatry evaluation 3. Lower extremity arterial ultrasounds: To evaluate the extent of peripheral arterial disease(she may possibly have inflow disease, as her right femoral pulse was weaker than the left side), and declined intervention as required. 4. Carotid ultrasound: For follow-up of carotid stenoses 5. Correction of electrolyte imbalance, IV hydration, nephrology consult. 6. Evaluation and management of CHF, and atrial fibrillation. 7. Optimize cessation of other medical problems Will consider right lower extremity arteriogram, with possible intervention, in the near future, after adequate hydration and antibiotic treatment. My impression and plan were discussed with the patient. She understands the risk of contrast nephropathy, and increased risk of limb loss. Discussed with hospitalist - Dr. Calles Laboratory Data Labs 24H Laboratory Tests 2 05/16/21 17:10: Immature Granulocyte % (Auto) 0.6, Neutrophils (%) (Auto) 80.5H, Lymphocytes (%) (Auto) 8.0L, Monocytes (%) (Auto) 9.6H, Eosinophils (%) (Auto) 1.1, Basophils (%) (Auto) 0.2, Neutrophils # (Auto) 7.9, Lymphocytes # (Auto) 0.8L, Monocytes # (Auto) 0.9H, Eosinophils # (Auto) 0.1, Basophils # (Auto) 0.0, Nucleated Red Blood Cells % (auto) 0.0, Anion Gap 8, Glomerular Filtration Rate 36.7L, Lactic Acid Level 1.5, Calcium Level 8.6L, Total Bilirubin 0.5, Aspartate Amino Transf (AST/SGOT) 18, Alanine Aminotransferase (ALT/SGPT) 22, Alkaline Phosphatase 84, Total Protein 6.1L, Albumin 2.7L, Albumin/Globulin Ratio 0.8L 05/16/21 17:11: Prothrombin Time 15.9H, Prothromb Time International Ratio 1.23, Activated Partial Thromboplast Time 37.3 CBC/BMP Laboratory Tests 05/16/21 17:10 Microbiology Microbiology 05/16/21 Blood Culture, Received Pending 05/16/21 Blood Culture, Received Pending Allergies Coded Allergies: Sulfa (Sulfonamide Antibiotics) (Verified Allergy, Severe, anaphylaxis, rash, 04/30/19) neomycin (Verified Allergy, Intermediate, rash, 04/30/19) ramipril (Verified Adverse Reaction, Intermediate, cough, 04/30/19) Home Medications Scheduled Acetaminophen (Tylenol Arthritis) 650 Mg Tablet.er, 1,300 MG PO BID, (Reported) Apixaban (Eliquis) 5 Mg Tab, 5 MG PO BID, (Reported) Aspirin (Aspirin EC) 81 Mg Tablet.dr, 81 MG PO DAILY, (Reported) Bisoprolol Fumarate (Bisoprolol Fumarate) 5 Mg Tab, 5 MG PO DAILY, (Reported) Colchicine (Colchicine) 0.6 Mg Tablet, 0.3 MG PO DAILY, (Reported) Colesevelam Hydrochloride (Welchol) 625 Mg Tablet, 625 MG PO BID, (Reported) Cyanocobalamin (Vitamin B-12) (Vitamin B-12) 500 Mcg Tablet, 500 MCG PO DAILY, (Reported) Dexlansoprazole (Dexilant) 60 Mg Dom.bp, 60 MG PO QHS, (Reported) Diltiazem HCl (Diltiazem HCl) 30 Mg Tab, 30 MG PO BID, (Reported) Docusate Sodium (Docusate Sodium) 100 Mg Capsule, 100 MG PO DAILY, (Reported) Ergocalciferol (Vitamin D2) (Vitamin D2) 50,000 Units Cap, 50,000 UNITS PO 1XWK, (Reported) FRIDAY EVENING Escitalopram Oxalate (Lexapro) 10 Mg Tablet, 10 MG PO DAILY, (Reported) Ferrous Sulfate (Ferrous Sulfate) 325 Mg Tab, 650 MG PO Q2D, (Reported) AT NIGHT Gabapentin (Neurontin) 300 Mg Cap, 300 MG PO QHS, (Reported) Insulin Aspart (Novolog Flexpen) 100 Unit/Ml Inj, 1 DOSE SC AC, (Reported) PER SLIDING SCALE Irbesartan (Irbesartan) 75 Mg Tab, 75 MG PO DAILY, (Reported) Metoclopramide HCl (Metoclopramide HCl) 5 Mg Tablet, 5 MG PO BID, (Reported) Pantoprazole Sodium (Pantoprazole Sodium) 40 Mg Tablet.dr, 40 MG PO DAILY, (Reported) Potassium Chloride (Klor-Con M10) 10 Meq Tabcr, 10 MEQ PO BID, (Reported) Rosuvastatin Calcium (Crestor) 20 Mg Tab, 20 MG PO DAILY, (Reported) Spironolactone (Spironolactone) 25 Mg Tab, 25 MG PO DAILY, (Reported) Sucralfate (Sucralfate) 1 Gm Tablet, 1 GM PO BID, (Reported) Torsemide (Torsemide) 10 Mg Tablet, 10 MG PO BID, (Reported) Scheduled PRN Mupirocin (Mupirocin) 2 % Oint...g., 1 DOSE EXT BID PRN for OPEN SORES, (Reported) APPLIES TO LOWER RIGHT LEG Triamcinolone Acet (Triamcinolone Acetonide 0.1% Oint) 15 Gm Oint...g., 1 DOSE TOP BID PRN for RASH, (Reported) APPLIES TO LOWER RIGHT LEG Piper Castañeda MD May 16, 2021 18:48
[2021-05-16] MEDS: PIPERACILLIN/TAZOBACTAM SOD 3.375 GM in D5W MINI-BAG PLUS 50 ML IV SCH (18:56)
[2021-05-16] MEDS ORDERED: MORPHINE 2 MG/ML 1ML VIAL (J2270) IV ONE (20:15)
[2021-05-16] MEDS: APIXABAN 5 MG TAB (ELIQUIS) PO SCH (20:44)
[2021-05-16] MEDS ORDERED: POTASSIUM CHLORIDE 10MEQ SR TABLET PO ONE (21:00)
[2021-05-16] MEDS ORDERED: TORS10TA3 PO (23:20)
[2021-05-16] MEDS ORDERED: MUPI2OI EXT (23:20)
[2021-05-16] MEDS ORDERED: VITA-172 PO (23:20)
[2021-05-16] MEDS ORDERED: SUCR1TAB56 PO (23:20)
[2021-05-16] MEDS ORDERED: LEXA1TAB PO (23:20)
[2021-05-16] MEDS ORDERED: DOCU100C16 PO (23:20)
[2021-05-16] MEDS ORDERED: METO5TAB2 PO (23:20)
[2021-05-16] MEDS ORDERED: DEXI60CA2 PO (23:20)
[2021-05-16] MEDS ORDERED: TRIA1OI TOP (23:20)
[2021-05-16] MEDS ORDERED: PANT40TA29 PO (23:20)
[2021-05-16] MEDS ORDERED: COLC0.6T47 PO (23:20)
--- NOTE | 2021-05-16 23:22 | REPVR ---
PROCEDURE INFORMATION: Exam: MR Right Lower Extremity Other Than Joint Without Contrast; Foot Exam date and time: 05/16/2021 10:33 PM Age: 70 years old Clinical indication: Other: R/O osteomyelitis, necrotic 4th and 5th digits TECHNIQUE: Imaging protocol: MR of the Right lower extremity without contrast. Exam focused on the foot. COMPARISON: CR Foot, complete RIGHT 04/17/2021 12:29 PM FINDINGS: Soft tissues: There is soft tissue swelling deep within the foot along the extensor and flexor tendons. There is focal swelling of the distal end of the 3rd ,4th and 5th digits probably the result of cellulitis. There is no evidence of osteomyelitis. Plantar fascia: Unremarkable as visualized. IMPRESSION: 1. Soft tissue swelling through the foot including the flexor and extensor muscles. 2. Focal soft tissue swelling 3rd 4th and 5th digits with no evidence of osteomyelitis. Electronically signed by: Anatoly Qiu On 05/16/2021 23:22:36 PM
[2021-05-16] MEDS ORDERED: HOME MED LIST COMPLETE! XX SCH (23:25)
[2021-05-17] MEDS ORDERED: UNRESOLVED CLARIFICATION ENTRY XX SCH (00:01)
[2021-05-17] MEDS: PIPERACILLIN/TAZOBACTAM SOD 3.375 GM in D5W MINI-BAG PLUS 50 ML IV SCH ×5 (00:57→23:59)
[2021-05-17] MEDS: SUCRALFATE 1 GM TAB PO SCH ×3 (00:58→20:34)
[2021-05-17] MEDS: GABAPENTIN 300 MG CAP PO SCH ×2 (00:58→20:34)
[2021-05-17] MEDS: METOCLOPRAMIDE 5 MG TAB PO SCH ×3 (02:20→20:35)
[2021-05-17] MEDS: ACETAMINOPHEN 650MG ER TAB (TYLENOL ARTHRITIS) PO SCH ×3 (02:22→20:34)
[2021-05-17 06:00] VITALS: BP 102/44
[2021-05-17 07:09] LABS: HEMATOCRIT 30.7 % (36.0-47.0); HEMOGLOBIN 9.9 g/dl (12.0-15.5); MEAN CORPUSCULAR HEMOGLOBIN 29.6 pg (27.0-33.0); MEAN CORPUSCULAR HGB CONC 32.2 g/dl (32.0-36.5); MEAN CORPUSCULAR VOLUME 91.9 fl (80.0-96.0); PLATELET COUNT, AUTOMATED 159 10^3/uL (150-450); RED BLOOD COUNT 3.34 10^6/uL (4.00-5.40); WHITE BLOOD COUNT 9.2 10^3/uL (4.0-10.0)
[2021-05-17 07:33] LABS: ALBUMIN 2.3 GM/DL (3.2-5.2); BILIRUBIN,TOTAL 0.4 MG/DL (0.2-1.0); CALCIUM LEVEL 8.6 MG/DL (8.8-10.2); CREATININE FOR GFR 1.53 MG/DL (0.55-1.30); GLOMERULAR FILTRATION RATE 35.8 (>45); POTASSIUM SERUM 3.4 MEQ/L (3.5-5.1); TOTAL PROTEIN 5.5 GM/DL (6.4-8.2)
[2021-05-17] MEDS ORDERED: SPIRONOLACTONE 25 MG TAB PO SCH (09:00)
[2021-05-17] MEDS ORDERED: LOSARTAN 50MG TABLET PO SCH (09:00)
[2021-05-17] MEDS ORDERED: FLUBLOK(EGG FREE)(QUAD)INFLUENZA VACC 0.5ML SYRINGE 18YRS & OLDER IM ONE (09:00)
[2021-05-17] MEDS: POTASSIUM CHLORIDE 10MEQ SR TABLET PO SCH ×2 (10:22→20:34)
[2021-05-17] MEDS: ROSUVASTATIN 10 MG TAB (CRESTOR) PO SCH (10:22)
[2021-05-17] MEDS: CYANOCOBALAMIN 500 MCG TAB PO SCH (10:22)
[2021-05-17] MEDS: ASPIRIN 81MG ENTERIC TABLET PO SCH (10:22)
[2021-05-17] MEDS: ESCITALOPRAM OXALATE 10 MG TAB (LEXAPRO) PO SCH (10:23)
[2021-05-17] MEDS: bisoproloL fumarate 5 MG TAB PO SCH (10:23)
[2021-05-17] MEDS: PANTOPRAZOLE 40MG TAB (PROTONIX) PO SCH (10:23)
[2021-05-17] MEDS: TORSEMIDE 10 MG TABLET PO SCH ×2 (10:24→18:22)
[2021-05-17] MEDS: DOCUSATE SODIUM 100MG CAPSULE PO SCH (10:25)
[2021-05-17] MEDS: APIXABAN 5 MG TAB (ELIQUIS) PO SCH ×2 (10:25→16:56)
[2021-05-17] MEDS: COLCHICINE 0.6 MG TABLET PO SCH (10:25)
[2021-05-17] MEDS: COLESEVELAM 625 MG TAB (WELCHOL) PO SCH ×2 (10:31→18:22)
--- NOTE | 2021-05-17 13:05 | CR ---
NEPHROLOGY CONSULTATION DATE: 05/17/2021 REQUESTING CLINICIAN: Dana Calles MD. REASON FOR CONSULTATION: Acute on chronic kidney disease in this lady with right foot ischemia and potential need for audiogram. HISTORY OF PRESENT ILLNESS: Ms. Benitez is a 70-year-old female who was admitted to [facility] yesterday due to gangrenous toes on her right foot. She is noticed to have decreased kidney function due to which a Nephrology Consultation was requested. Patient has been seen by vascular surgery and there is a potential need for audiogram due to ischemia of her foot. A Nephrology Consultation was requested this morning for evaluation and possible clearance for audiogram. Patient is seen this morning on her bedside. PAST MEDICAL HISTORY: Significant for: 1. History of diastolic congestive heart failure with ejection fraction 75%. 2. Long standing diabetes. 3. Atrial fibrillation. 4. Hypertension. 5. History of duodenal ulcer and GI bleed in the past. 6. History of obesity status post gastric bypass. 7. History of iron deficiency anemia. 8. History of dyslipidemia. 9. COPD. 10. Obstructive sleep apnea. 11. History of diabetic retinopathy status post laser surgery. 12. History of breast cancer status post mastectomy. 13. History of pulmonary hypertension. 14. History of atheroma in the distal aortic arch and descending thoracic aorta. 15. History of carotid artery stenosis. 16. History of gout. PAST SURGICAL HISTORY: Significant for: 1. Hysterectomy. 2. Bilateral salpingo-oophorectomy. 3. History of gastric bypass in 2006. 4. History of bladder elevation in . 5. Left breast ultrasound guided biopsy. 6. Left breast lumpectomy. 7. Bilateral mastectomies. 8. Aortic valve replacement with Bioprosthetic valve. 9. Cholecystectomy. FAMILY HISTORY: Noncontributory for this admission. Mother had liver cancer and she is at 41 years old. Father coronary artery disease and diabetes and at 80. PERSONAL AND SOCIAL HISTORY: Patient is an ex-smoker who quit 20 years ago. Denies any drug or alcohol use. ALLERGIES: 1. SULFA. 2. RAMIPRIL. 3. NEOMYCIN. MEDICATIONS: Home medications include: 1. Tylenol 1300 mg twice a day. 2. Eliquis 5 mg twice a day. 3. Aspirin 81 mg daily. 4. Bisoprolol 5 mg daily. 5. Calcium with vitamin D 1 tablet daily. 6. Cefadroxil 1000 mg twice a day. 7. WelChol 625 mg twice a day. 8. Diltiazem 30 mg twice a day. 9. Colace 100 mg twice a day. 10. Vitamin D 50,000 units once a week. 11. Ferrous sulfate 325 mg daily. 12. Gabapentin 300 mg twice a day. 13. Tresiba insulin 10 units daily. 14. NovoLog per sliding scale. 15. Irbesartan 75 mg daily. 16. Pantoprazole 40 mg twice a day. 17. Potassium chloride 10 mEq daily. 18. Rosuvastatin 20 mg daily. 19. Spironolactone 25 mg daily. 20. Torsemide 30 mg daily. 21. Albuterol as needed. REVIEW OF SYSTEMS: Patient denies any fever or chills. Ears, nose and throat: Unremarkable. Cardiovascular system: Significant for history of congestive heart failure. She denies any dyspnea at present. She does have edema on her right leg, but no edema on the left leg. Respiratory system: Negative for cough or hemoptysis. GI system: Negative for vomiting or diarrhea. She has prior history of gastric bypass and also has history of GI bleed. system: Negative for dysuria or hematuria. She did have a renal ultrasound which did not show any evidence of hydronephrosis or stone. She also had a renal Doppler ultrasound a few months ago which was negative for any renal artery stenosis. Musculoskeletal system: Significant for gangrenous toes on her right foot. Endocrine system: Significant for diabetes and hypothyroidism. Hematologic system: Significant for anemia and anticoagulation. Psychosocial system: Negative for depression/anxiety. Neurological system: Significant for peripheral neuropathy and no known history of stroke. PHYSICAL EXAMINATION: Elderly lady sitting in the chair without any acute distress. Temperature 98.8 degrees Fahrenheit, heart rate 75 per minute and respiratory rate 18 per minute. Blood pressure 118/78 mmHg and oxygen saturation 96% on room air. Head: Atraumatic. Neck: Supple and JVD not abnormally elevated. There is no audible carotid bruit. Heart: Sounds are regular with systolic murmur grade 1/6. Lungs: Clear to auscultation. Abdomen: Soft and nontender and bowel sounds are normal. Extremities: Without any cyanosis or clubbing. She has edema on her right leg up to the knee. Right foot is wrapped in a dressing. There is no edema of the left leg. Neurologically: She is awake, alert and at her baseline mentation. There is no focal neurological deficit. LABORATORY DATA: Today's labs show: WBC count 9.2, hemoglobin 9.9, hematocrit 30.7. BUN 44, creatinine 1.53, sodium 145, potassium 3.4, CO2 25. AST 33, ALT 35, total protein 5.5, albumin 2.3. I have reviewed her prior record and noted that her creatinine has been as high as 2.5 at times. RADIOLOGY STUDIES: She had a renal ultrasound which was unremarkable with normal sized kidneys and no hydronephrosis. She also had a renal Doppler study which was negative for renal artery stenosis a few months ago. PROBLEMS AND PLAN: 1. Chronic kidney disease: Patient seems to have stage 3B of chronic kidney disease which is probably stable at present. In the past her kidney function was much worse. Probably at that time she had acute kidney injury. At present her volume status seems very well compensated and edema is only localized to her right leg. Renal artery stenosis has already been ruled out with a renal Doppler study. At this point we will continue to monitor her kidney function. She is not on any nephrotoxic medications and I would recommend that dose get adjusted for any antibiotics for her kidney function. 2. Hypertension: She has been on diuretics and angiotensin receptor chivo in addition to a beta-chivo and diltiazem. I feel that it is appropriate to continue with the angiotensin receptor chivo and diuretic for now. 3. Atrial fibrillation: Ventricular rate is well controlled with beta-chivo and calcium channel chivo. She has been on chronic anticoagulation with Eliquis. 4. Anemia: She does have anemia which is probably multifactorial. She has a history of gastric bypass and iron deficiency in the past. She is already on iron supplement. There is no urgent indication for any intervention for now. 5. Right foot ischemia with gangrenous toes: She probably has peripheral vascular disease in view of generalized atherosclerosis known. At this point her kidney function seems to be at its best and I would recommend to hold her angiotensin receptor chivo and diuretic on the day of audiogram if audiogram is being considered. Thank you for involving me in the care of Ms. Benitez. I will follow her along with you.
--- NOTE | 2021-05-17 13:17 | REP ---
INDICATION: PAD COMPARISON: April 13, 2020. TECHNIQUE: Real-time ultrasound evaluation and duplex Doppler interrogation of the extracranial carotid vasculature is performed. FINDINGS: Antegrade flow is observed in both vertebral arteries. Right carotid: The right common carotid artery shows diffuse intimal thickening but is otherwise unremarkable. There ismoderate mixed plaquing in the right carotid bulb and proximal ICA on two-dimensional scanning. Color flow and spectral Doppler interrogation are unremarkable on the right. Velocity chart right carotid: Right CCA PSV: 42 cm/S Right ICA PSV: 159 cm/S Right ICA EDV: 41 cm/S Right ECA PSV: 86 cm/S Right ICA/CCA ratio: 3.7 Left carotid: The left common carotid artery shows diffuse intimal thickening but is otherwise unremarkable. There is moderate mixed plaquing in the left carotid bulb and proximal ICA on two-dimensional scanning. Color flow and spectral Doppler interrogation are unremarkable on the left. Velocity chart left carotid: Left CCA PSV: 51 cm/S Left ICA PSV: 86 cm/S Left ICA EDV: 19 cm/S Left ECA PSV: 99 cm/S Left ICA/CCA ratio: 1.7 IMPRESSION: 50-69 % category narrowing in the right internal carotid artery by Doppler velocity criteria. Right CCA and ICA velocities are decreased compared to the prior study. Less than 50% category narrowing in the left ICA by Doppler velocity criteria. Left CCA and ICA velocities are decreased compared to the prior study. <Electronically signed by Guido Hirsch > 05/17/21 [id number]
--- NOTE | 2021-05-17 13:34 | REP ---
INDICATION: PAD COMPARISON: None. TECHNIQUE: Real-time sonographic evaluation of the bilateral lower extremity arteries with Doppler FINDINGS: All numeric values represent peak systolic velocity in cm/SEC On the right: The ankle brachial index was unobtainable. ECO INDUSTRIAL DEVELOPMENT CONSULTANT: 95.5 monophasic Profunda: 114.2 biphasic SFA proximal: 65.2 monophasic SFA mid: 62.6 monophasic SFA distal: 59.0 monophasic Popliteal: 209.5 monophasic ROBI proximal: 22.7 monophasic Tibioperoneal trunk: Not seen GARBAGE TRUCK DRIVER proximal: 77.1 monophasic GARBAGE TRUCK DRIVER distal: 13.9 monophasic ROBI distal: 27.9 monophasic On the left: The ankle brachial index was unobtainable. ECO INDUSTRIAL DEVELOPMENT CONSULTANT: 99.1 triphasic Profunda: 156.7 monophasic SFA proximal: 127.3 triphasic SFA Mid: 84.3 triphasic SFA distal: 119.9 biphasic Popliteal: 275.5 biphasic to monophasic ROBI proximal: 23.9 monophasic Tibioperoneal trunk not seen GARBAGE TRUCK DRIVER proximal: 27.2 monophasic GARBAGE TRUCK DRIVER distal: Occluded ROBI distal: 34.7 biphasic Moderate to severe plaque was seen bilaterally but right greater than left. A stenosis was seen at the right popliteal artery stenosis was also seen at the left popliteal artery proximally the distal posterior tibial artery was seen to be occluded. The examination was somewhat limited due to patient motion and plaque formation. IMPRESSION: As above <Electronically signed by Sameer Ramos > 05/17/21 [id number]
--- NOTE | 2021-05-17 16:52 | IPNPDOC ---
Text Note Date of Service The patient was seen on 05/17/21, at 4.20 pm. NOTE The patient is doing well. She is not in acute distress. She is sitting comfortably in the chair. She is on broad-spectrum intravenous antibiotics. She is also on Eliquis which is resumed. Nephrology consultation appreciated. Bilateral lower extremity arterial ultrasound and carotid ultrasound results and images reviewed. She has bilateral lower extremity peripheral arterial disease, right side more than left side. She has evidence of right lower extremity inflow disease both on examination and on ultrasound. Carotid ultrasound revealed 50 to 69% right internal carotid artery stenosis. MRI of the right foot: No evidence of osteomyelitis On examination : She is awake, alert and not in acute distress She is afebrile with stable vital signs Right leg erythema, with gangrenous right fourth and fifth toes, no significant discharge or purulence. Relevant labs and imaging reviewed. Creatinine 1.5 Assessment: 1. Gangrene of the right fourth and the fifth toes, associated with multilevel severe peripheral arterial disease. Options of treatment, for peripheral arterial disease, associated with limb threatening ischemia, including angiogram, with possible endovascular intervention, surgery-bypass/endarterectomy, along with associated risks and co mplications-including contrast-induced nephropathy were discussed. Alternatives to the procedure including nonoperative treatment and its consequences were also discussed The patient understands, and wishes to proceed with the right lower extremity arteriogram, with possible endovascular intervention tomorrow. Plan: 1. Hold EMIR inhibitors and diuretics, as per nephrology recommendation 2. Hold p.m. dose of Eliquis 3. IV hydration 4. N.p.o. after midnight, except for p.o. medications-which can be taken with sips of water VS,Fishbone, I+O VS, Fishbone, I+O Laboratory Tests 05/16/21 17:10 05/17/21 06:23 Vital Signs Date Time Temp Pulse Resp B/P (MAP) Pulse Ox O2 Delivery O2 Flow Rate FiO2 05/17/21 10:24 75 118/78 05/17/21 06:00 98.8 18 96 Room Air Piper Castañeda MD May 17, 2021 16:52
--- NOTE | 2021-05-17 18:47 | IPNPDOC ---
Date Seen The patient was seen on 05/17/21. Progress Note SUBJECTIVE: The patient had no acute events over the evening. She denies any increased right lower extremity pain, numbness, tingling. Nephrology consulted and has seen today. OBJECTIVE: PHYSICAL EXAMINATION: VS: Please see above CONSTITUTIONAL: No acute distress, AAO x 3 EYES: PERRLA, EOM intact HENT, MOUTH: Normocephalic, atraumatic, moist mucous membranes NECK: SUPPLE, no JVD, no lymphadenopathy, no carotid bruit CV: Regular rate and rhythm, S1S2 normal, no murmurs/rubs/gallops RESPIRATORY: Crackles in post lung ocampo-minimal. no rales/rhonchi/wheezes GI: BS positive in 4 quadrants, soft, nontender, nondistended, no rebound or guarding, no organomegaly : Deferred MUSCULOSKELETAL: Normal ROM. No cyanosis, clubbing, swelling, joint deformity, +1-2 pitting lower extremity edema INTEGUMENTARY: 6 cm necrotic wounds over the right lower extremity Achilles tendon area of leg, black and and cold fourth and fifth digit of the right foot. Reddened area around the fourth and fifth right foot digits; however, not warm to touch. Several crusted wounds anteriorly of the right and. There is a 3 cm wound of the left anterior alvarado. no rashes, NEUROLOGIC: Cranial Nerves II-XII are intact. Decreased sensation to fine and dull touch in the fourth and fifth digit of the right foot PSYCHIATRIC: Mood and affect are normal LABORATORY DATA: Please see below MICRO: No growth at 24 hrs IMAGING: Right foot MRI: 1. Soft tissue swelling through the foot including the flexor and extensor muscles. 2. Focal soft tissue swelling 3rd 4th and 5th digits with no evidence of osteomyelitis. B/l lower ext arterial US: Moderate to severe plaque was seen bilaterally but right greater than left. A stenosis was seen at the right popliteal artery stenosis was also seen at the left popliteal artery proximally the distal posterior tibial artery was seen to be occluded. The examination was somewhat limited due to patient motion and plaque formation. Carotid US: 50-69 % category narrowing in the right internal carotid artery by Doppler velocity criteria. Right CCA and ICA velocities are decreased compared to the prior study. Less than 50% category narrowing in the left ICA by Doppler velocity criteria. Left CCA and ICA velocities are decreased compared to the prior study. ASSESSMENT: 69 y/o F with extensive past medical history above admitted for right foot 4th and 5th digit ischemia, gangrene PLAN: #Gangrene of the right fourth and the fifth toes, associated with multilevel severe peripheral arterial disease. S/p trauma several weeks ago -Plan is for Right lower ext arteriogram on 05/18/21, cleared by nephrology -Hold EMIR inhibitors and diuretics, as per nephrology recommendation -Hold p.m. dose of Eliquis -IV hydration overnight -N.p.o. after midnight, except for p.o. medications-which can be taken with sips of water -Trauma sustained to foot 2 weeks ago, worsened over 3 days -Zosyn -Vascular surgery consulted #Hypokalemia -KCL 10 mg PO BID -F/u daily #CKD stage III B -Cr at baseline -F/u labs -Nephrology consulted #Chronic iron deficiency anemia likely 2/2 to slow (possibly chronic from history) GI bleed, on eliquis and ASA at home -Hx of duodenal ulcer/gastric pouch ulceration/hx of upper GI bleed, esophagitis with metaplasia -No s/s of bleeding -Low iron history with iron supplement every other day -Discussed in detail with Dr. Ortiz (Cardiology) on prior admission who is cautious to take patient off Eliquis due to severe pulmonary arterial HTN, CHF, bioprosthetic valve and atrial fibrillation. -Also on prior admission Dr. Shea (general surgery) suggested o/p upper and lower scope but not done. If worsens, can consult. -Hx of needing transusions -F/u CBC daily, c/w home meds. HFpEF without exacerbation -Stable, asymptomatic. -C/w home meds -Tele, I&O's, daily wt A. fib, chronic and rate controlled -C/w CCB, BB, eliquis BID Hyperlipidemia. -C/w Crestor. COPD, not currently in exacerbation -C/w home meds DM type II -C/w levemir HS, ISS, AC/HS FS, consistent carb diet #HTN -C/w home meds after angiogram 05/18/21 [facility] -Can use home Bipap Hx of GERD, PUD -C/w sucralfate, PPI but BID DVT px -Eliquis BID held for the evening due to angiogram in AM, c/w scd/teds DISPOSITION: Vascular and nephrology consulted, f/u recommendations. Admitted inpatient. VS, I&O, 24H, Fishbone Vital Signs/I&O Vital Signs Date Time Temp Pulse Resp B/P (MAP) Pulse Ox O2 Delivery O2 Flow Rate FiO2 05/17/21 10:24 75 118/78 05/17/21 06:00 98.8 18 96 Room Air Laboratory Data 24H LABS Laboratory Tests 2 05/16/21 19:01: Coronavirus (COVID-19)(PCR) NEGATIVE 05/16/21 23:06: Bedside Glucose (Misc Panel) 122H 05/17/21 06:23: Nucleated Red Blood Cells % (auto) 0.0, Anion Gap 6L, Glomerular Filtration Rate 35.8L, Calcium Level 8.6L, Magnesium Level 2.0, Total Bilirubin 0.4, Aspartate Amino Transf (AST/SGOT) 33, Alanine Aminotransferase (ALT/SGPT) 35, Alkaline Phosphatase 158H, Total Protein 5.5L, Albumin 2.3L, Albumin/Globulin Ratio 0.7L CBC/BMP Laboratory Tests 05/17/21 06:23 Microbiology Microbiology 05/16/21 Blood Culture - Preliminary, Resulted No growth after 24 hours . All specim... 05/16/21 Blood Culture - Preliminary, Resulted No growth after 24 hours . All specim... Dana Calles MD May 17, 2021 18:47
[2021-05-17] MEDS ORDERED: FERROUS SULFATE 325MG TAB PO SCH (21:00)
[2021-05-17 22:00] VITALS: BP 117/58
[2021-05-17] MEDS: NS 0.45% 1,000 ML IV SCH (23:59)
[2021-05-18] MEDS: PIPERACILLIN/TAZOBACTAM SOD 3.375 GM in D5W MINI-BAG PLUS 50 ML IV SCH ×3 (05:36→17:38)
[2021-05-18 06:00] VITALS: BP 116/64
[2021-05-18 06:52] LABS: HEMATOCRIT 29.3 % (36.0-47.0); HEMOGLOBIN 9.3 g/dl (12.0-15.5); MEAN CORPUSCULAR HEMOGLOBIN 29.8 pg (27.0-33.0); MEAN CORPUSCULAR HGB CONC 31.7 g/dl (32.0-36.5); MEAN CORPUSCULAR VOLUME 93.9 fl (80.0-96.0); PLATELET COUNT, AUTOMATED 152 10^3/uL (150-450); RED BLOOD COUNT 3.12 10^6/uL (4.00-5.40)
[2021-05-18] MEDS ORDERED: MIDAZOLAM INJ 2MG/2ML VIAL (J2250 PER 1MG) As Ordered ONE (07:33)
[2021-05-18] MEDS ORDERED: diphenhydrAMINE 50MG/ML VIAL (J1200) As Ordered ONE (07:33)
[2021-05-18] MEDS ORDERED: fentaNYL 100 MCG/2 ML INJECTION (J3010) As Ordered ONE (07:33)
[2021-05-18] MEDS ORDERED: ISOVUE-300 61% 50ML VIAL As Ordered ONE (07:35)
[2021-05-18 07:36] LABS: ALBUMIN 2.1 GM/DL (3.2-5.2); BILIRUBIN,TOTAL 0.3 MG/DL (0.2-1.0); CALCIUM LEVEL 8.6 MG/DL (8.8-10.2); CREATININE FOR GFR 1.88 MG/DL (0.55-1.30); GLOMERULAR FILTRATION RATE 28.2 (>45); POTASSIUM SERUM 3.5 MEQ/L (3.5-5.1); TOTAL PROTEIN 5.2 GM/DL (6.4-8.2)
[2021-05-18] MEDS ORDERED: LIDOCAINE 1% MDV 20ML VIAL As Ordered ONE (07:36)
[2021-05-18] MEDS: COLESEVELAM 625 MG TAB (WELCHOL) PO SCH ×2 (08:00→17:38)
[2021-05-18] MEDS: NS 0.45% 1,000 ML IV SCH (08:07)
[2021-05-18] MEDS ORDERED: NS 250 ML IV ONE (08:25)
[2021-05-18] MEDS ORDERED: hydrALAZINE 20MG/ML 1ML VIAL (J0360 PER 20MG) IV PRN (08:40)
[2021-05-18] MEDS: ACETAMINOPHEN 650MG ER TAB (TYLENOL ARTHRITIS) PO SCH ×2 (08:42→22:17)
[2021-05-18] MEDS ORDERED: FLUBLOK(EGG FREE)(QUAD)INFLUENZA VACC 0.5ML SYRINGE 18YRS & OLDER IM ONE (09:00)
[2021-05-18] MEDS: NS 1,000 ML IV SCH ×2 (09:23→17:46)
[2021-05-18] MEDS ORDERED: CLOPIDOGREL 75 MG TAB As Ordered ONE (12:53)
--- NOTE | 2021-05-18 12:56 | ROOPDOC ---
[facility] Report Of Operation Report of Operation DATE OF PROCEDURE: 05/18/21 PREPROCEDURE DIAGNOSES: Peripheral arterial disease, ischemic rest pain of the right foot, gangrene of the right fourth and the fifth toes. POSTPROCEDURE DIAGNOSES: Peripheral arterial disease, ischemic rest pain of the right foot, gangrene of the right fourth and the fifth toes. PROCEDURE PERFORMED: 1. Aorto iliac angiogram, through left common femoral artery (ultrasound-guided )access 2. Right lower extremity arteriogram, performed through selective catheterization of the right superficial femoral artery, from the left common femoral artery access. 3. Balloon angioplasty of the right distal superficial femoral artery, popliteal artery, and proximal posterior tibial artery. A 3 x 200 mm Manlius balloon was used 4. Stenting of the right distal superficial femoral artery with 6x 100 mm Innova ([employer]) bare-metal self-expanding stent. 5. Post stent balloon angioplasty, using 5 x 100 mm Manlius balloon. 6. Completion right lower extremity arteriogram 7. Intraoperative pressure measurements of the external iliac arteries bilaterally, to rule out proximal right common iliac artery significant stenosis requiring intervention 8. Mynx closure of the left common femoral artery access site SURGEON: Piper Castañeda MD STAFFING RN: None ANESTHESIA: Intravenous sedation: Versed-0.5 mg, fentanyl-100 mcg, and local anesthesia ESTIMATED BLOOD LOSS: Approximately 10 mL. Contrast: 75 mL of Isovue 300 Heparin: 4000 units COMPLICATIONS: None REMARKS: Resolved ischemic rest pain of the right foot, after the procedure FINDINGS: 1. Diffusely calcified vessel hobson. Patent abdominal aorta, bilateral renal arteries, bilateral common iliac, external and internal iliac arteries. There may be a focal 40 to 50% stenosis, of the right proximal common iliac artery, at the aortic bifurcation. This was not confirmed on the arterial pressure comparison between the external iliac arteries bilaterally, which did not show any significant pressure difference between the external iliac arteries. However the patient is in atrial fibrillation, with the regular pulse volumes, and pressure measurements may not be accurate. 2. Patent right common femoral artery, right profunda femoris artery, right superficial femoral artery, with diffuse 80% stenoses of the distal right superficial femoral artery. There is a focal occlusion of the artery, at the adductor canal. There is diffuse disease of the above-knee popliteal artery, with a focal occlusion. The below-knee popliteal artery is patent with a 50% focal stenosis. Patent right anterior tibial artery, patent dorsalis pedis artery. Patent tibioperoneal trunk. Diffusely diseased peroneal artery. Patent right posterior tibial artery, with a possible focal 80% stenosis, in its proximal portion. Diffusely diseased plantar arteries. 3. Successful recanalization, of the occluded segments of the distal right superficial femoral artery and popliteal arteries, with balloon angioplasty and stenting , without significant residual stenosis and leading to improved flow in the tibial arteries. There seem to be an area of nonflow limiting dissection, in the above-knee popliteal artery, which did not require further intervention at this point. PROCEDURE NOTE: Indication for the procedure: The patient is a 70-year-old lady, with diabetes mellitus, atrial fibrillation and other multiple medical comorbidities, who developed significant ischemic rest pain, in the right foot, for the past 6 weeks. This was initially diagnosed as gout due to the erythema of her toes. Over the past 1 week, she developed gangrene of the right fourth and the fifth toes, with significant color discoloration, and increasing pain, and was hospitalized. The patient has known peripheral arterial disease. However she does not ambulate enough, to need to claudication. She also has chronic kidney disease, with a baseline creatinine of 1.5-1.8. On the day of her procedure her creatinine was noted to be 1.88. She was hydrated with intravenous fluids, as per renal protocol, diuretics and EMIR inhibitors were discontinued and half-strength contrast was used, to perform the procedure, to decrease the incidence of contrast-induced nephropathy. Informed consent was obtained from the patient, for the procedure, after explaining the risk benefits and complications of the procedure, which include but are not limited to bleeding, infection, cardiorespiratory complications, including myocardial infarction, congestive heart failure, contrast-induced complications including allergy, nephropathy, ischemic complications to the limb including the arterial embolization, failure to treat, for the need for surgical intervention, loss of limb loss of life etc. Alternatives to the procedure including nonoperative treatment and its consequences were explained. The patient understood and agreed to the procedure. The patient was being treated with intravenous antibiotics, for right foot infection and cellulitis. DESCRIPTION OF PROCEDURE: The patient was currently identified and placed upon the antibiotic table. Intravenous sedation was administered. The groins were cleaned and draped in a sterile fashion. A timeout was performed. After administering local anesthesia with 1% lidocaine, under ultrasound guidance, the left common femoral artery was accessed, using a 21-gauge micropuncture needle, that was exchanged to a 4 Ugandan micro sheath over a 0.018 inch wire. The sheath was then exchanged to a 5 Ugandan sheath over a Bentson wire. An Omni Flush catheter was introduced over the wire, into the abdominal aorta, and an aorto iliac angiogram was performed, through the power injector, using of diluted contrast. The catheter and the wire were used to select the right co mmon iliac artery, and subsequently the right external iliac artery, and the right femoral arteries were imaged. The catheter was then advanced over the wire, into the proximal superficial femoral artery and right lower extremity arteriogram was performed selectively through the catheter. Findings as mentioned above. It was decided to perform intervention. The wire was exchanged to an advantage Glidewire. The 5 Ugandan sheath was removed, and a 6 [place] Destination 65 cm sheath was inserted over the wire, and positioned with its tip in the proximal right SFA. A Navicross 150 cm crossing catheter, was then used, to cross the ar terial occlusions, along with the advantage Glidewire, and the wire was positioned, and the proximal posterior tibial artery. Initially a 3 x 200 mm Manlius balloon was used to balloon angioplasty the right proximal posterior tibial artery stenosis, the below-knee popliteal artery stenosis, the above-knee popliteal artery occlusion, and the distal SFA occlusion and stenosis. Foll owing this there was improvement in flow, with significant residual stenosis, in the treated areas. Hence a 6 x 100 mm Innova self-expanding bare-metal stent was advanced over the wire, and position in the distal right SFA, with its distal end at the adductor canal. The stent was postdilated, with a 5 mm Manlius balloon. The residual stenoses in the popliteal artery were also b alloon angioplastied, with the 5 mm Manlius balloon. Following this, there was improved flow, with no significant (less than 30%) residual stenosis, in the treated segments. However an area of focal dissection was noted, in the above- knee popliteal artery segment, which was nonflow limiting, and hence no further intervention was performed. The patient had immediate resolution of rest pain, even while she was on the table. As there was suspicion for proximal right common iliac artery stenosis, pressure measurements of the external iliac arteries was performed, by using the Navicross catheter, for arterial pressure management measurement in the right external iliac artery, and the left external iliac artery pressure management was performed, through the 6 Ugandan sheath. There was no significant pressure differential. However the patient has atrial fibrillation, with irregular pulse volumes, and hence the pressure measurements may not be accurate. At this point, as she had improved the flow through her right lower extremity arteries, and as she had resolution of rest pain, it was decided to hold on with any further intervention of the right common iliac artery, at this point. Also treatment of the right, iliac artery stenosis would involve accessing the right common femoral artery, and administration of further dye. If she requires intervention in the future, would plan right common leg artery stenting, through the right common femoral artery access -which would be considered only if she has no improvement in the wound healing of her right foot. Plan: Podiatry to consider amputation of the right fourth and fifth toes Continue aspirin and Plavix for at least 1 month uninterruptedly as feasible May switch to aspirin and Eliquis after 1 month IV hydration to continue and monitor for nephropathy. Procedure and findings were conveyed to the patient's Av over the phone Piper Castañeda MD May 18, 2021 12:55
[2021-05-18] MEDS ORDERED: CLOPIDOGREL 300 MG TAB (PLAVIX) PO STA (13:07)
[2021-05-18] MEDS ORDERED: CLOPIDOGREL 75 MG TAB PO STA (13:12)
[2021-05-18] MEDS: ASPIRIN 81MG ENTERIC TABLET PO SCH (13:19)
[2021-05-18 13:45] VITALS: BP 116/55
[2021-05-18] MEDS: ROSUVASTATIN 10 MG TAB (CRESTOR) PO SCH (14:00)
[2021-05-18] MEDS: METOCLOPRAMIDE 5 MG TAB PO SCH ×2 (14:00→22:17)
[2021-05-18] MEDS: ESCITALOPRAM OXALATE 10 MG TAB (LEXAPRO) PO SCH (14:00)
[2021-05-18] MEDS: SUCRALFATE 1 GM TAB PO SCH ×2 (14:00→22:17)
[2021-05-18] MEDS: COLCHICINE 0.6 MG TABLET PO SCH (14:01)
[2021-05-18] MEDS: CYANOCOBALAMIN 500 MCG TAB PO SCH (14:01)
[2021-05-18] MEDS: DOCUSATE SODIUM 100MG CAPSULE PO SCH (14:01)
[2021-05-18] MEDS: bisoproloL fumarate 5 MG TAB PO SCH (14:02)
[2021-05-18] MEDS: PANTOPRAZOLE 40MG TAB (PROTONIX) PO SCH (14:02)
[2021-05-18] MEDS: POTASSIUM CHLORIDE 10MEQ SR TABLET PO SCH (14:03)
[2021-05-18 14:15] VITALS: BP 118/56
[2021-05-18 15:15] VITALS: BP 117/54
[2021-05-18 16:00] VITALS: BP 104/50
--- NOTE | 2021-05-18 18:51 | IPNPDOC ---
Date Seen The patient was seen on 05/18/21. Progress Note SUBJECTIVE: RLE angiogram today, f/u results. Patient denies chest pain, SOB, fevers, chills. OBJECTIVE: PHYSICAL EXAMINATION: VS: Please see above CONSTITUTIONAL: No acute distress, AAO x 3 EYES: PERRLA, EOM intact HENT, MOUTH: Normocephalic, atraumatic, moist mucous membranes NECK: SUPPLE, no JVD, no lymphadenopathy, no carotid bruit CV: Regular rate and rhythm, S1S2 normal, no murmurs/rubs/gallops RESPIRATORY: Crackles in post lung ocampo-minimal. no rales/rhonchi/wheezes GI: BS positive in 4 quadrants, soft, nontender, nondistended, no rebound or guarding, no organomegaly : Deferred MUSCULOSKELETAL: Normal ROM. No cyanosis, clubbing, swelling, joint deformity, +1-2 pitting lower extremity edema INTEGUMENTARY: 6 cm necrotic wounds over the right lower extremity Achilles te ndon area of leg, black and and cold fourth and fifth digit of the right foot. Reddened area around the fourth and fifth right foot digits; however, not warm to touch. Several crusted wounds anteriorly of the right and. There is a 3 cm wound of the left anterior alvarado. no rashes, NEUROLOGIC: Cranial Nerves II-XII are intact. Decreased sensation to fine and dull touch in the fourth and fifth digit of the right foot PSYCHIATRIC: Mood and affect are normal LABORATORY DATA: Please see below MICRO: No growth at 24 hrs IMAGING: Right foot MRI: 1. Soft tissue swelling through the foot including the flexor and extensor muscles. 2. Focal soft tissue swelling 3rd 4th and 5th digits with no evidence of osteomyelitis. B/l lower ext arterial US: Moderate to severe plaque was seen bilaterally but right greater than left. A stenosis was seen at the right popliteal artery stenosis was also seen at the left popliteal artery proximally the distal posterior tibial artery was seen to be occluded. The examination was somewhat limited due to patient motion and plaque formation. Carotid US: 50-69 % category narrowing in the right internal carotid artery by Doppler velocity criteria. Right CCA and ICA velocities are decreased compared to the prior study. Less than 50% category narrowing in the left ICA by Doppler velocity criteria. Left CCA and ICA velocities are decreased compared to the prior study. ASSESSMENT: 69 y/o F with extensive past medical history above admitted for rig ht foot 4th and 5th digit ischemia, gangrene PLAN: #Gangrene of the right fourth and the fifth toes, associated with multilevel severe peripheral arterial disease. S/p trauma several weeks ago -Right lower ext arteriogram today, f/u results and with vascular surgery -Holding eliquis, EMIR inhibitors and diuretics, as per nephrology recommendation -Trauma sustained to foot 2 weeks ago, worsened over 3 days -Zosyn -Vascular surgery #Hypokalemia- resolved -S/p KCL 10 mg PO BID -F/u daily #CKD stage III B -Cr still at baseline even though elevated at 1.8 -F/u labs -Nephrology consulted #Chronic iron deficiency anemia likely 2/2 to slow (possibly chronic from history) GI bleed, on eliquis and ASA at home -Hx of duodenal ulcer/gastric pouch ulceration/hx of upper GI bleed, esophagitis with metaplasia -No s/s of bleeding -Low iron history with iron supplement every other day -Discussed in detail with Dr. Ortiz (Cardiology) on prior admission who is cautious to take patient off Eliquis due to severe pulmonary arterial HTN, CHF, bioprosthetic valve and atrial fibrillation. -Also on prior admission Dr. Shea (general surgery) suggested o/p upper and lower scope but not done. If worsens, can consult. -Hx of needing transusions -F/u CBC daily, c/w home meds. HFpEF without exacerbation -Stable, asymptomatic. -C/w home meds -Tele, I&O's, daily wt A. fib, chronic and rate controlled -C/w CCB, BB, eliquis BID Hyperlipidemia. -C/w Crestor. COPD, not currently in exacerbation -C/w home meds DM type II -C/w levemir HS, ISS, AC/HS FS, consistent carb diet #HTN -C/w home meds after angiogram 05/18/21 [facility] -Can use home Bipap Hx of GERD, PUD -C/w sucralfate, PPI but BID DVT px -Eliquis BID held for angiogram in AM-resume when ok by vascular surgery c/w scd/teds DISPOSITION: Vascular and nephrology consulted, f/u recommendations. Admitted i npatient. VS, I&O, 24H, Fishbone Vital Signs/I&O Vital Signs Date Time Temp Pulse Resp B/P (MAP) Pulse Ox O2 Delivery O2 Flow Rate FiO2 05/18/21 16:00 98.3 55 17 104/50 (68) 98 Room Air 05/18/21 12:26 2.0 I&O- Last 24 Hours up to 6 AM 05/18/21 06:00 Intake Total 1080 ml Output Total 0 ml Balance 1080 ml Laboratory Data 24H LABS Laboratory Tests 2 05/18/21 06:07: Nucleated Red Blood Cells % (auto) 0.0, Anion Gap 5L, Glomerular Filtration Rate 28.2L, Calcium Level 8.6L, Total Bilirubin 0.3, Aspartate Amino Transf (AST/SGOT) 17, Alanine Aminotransferase (ALT/SGPT) 30, Alkaline Phosphatase 138H, Total Protein 5.2L, Albumin 2.1L, Albumin/Globulin Ratio 0.7L 05/18/21 13:58: Bedside Glucose (Misc Panel) 104 CBC/BMP Laboratory Tests 05/18/21 06:07 Microbiology Microbiology 05/16/21 Blood Culture - Preliminary, Resulted No Growth after 48 hours. All Specime... 05/16/21 Blood Culture - Preliminary, Resulted No Growth after 48 hours. All Specime... Dana Calles MD May 18, 2021 18:51
[2021-05-18 22:00] VITALS: BP 108/52
[2021-05-18] MEDS: GABAPENTIN 300 MG CAP PO SCH (22:17)
[2021-05-19] MEDS: PIPERACILLIN/TAZOBACTAM SOD 3.375 GM in D5W MINI-BAG PLUS 50 ML IV SCH ×4 (00:31→17:02)
[2021-05-19] MEDS: NS 1,000 ML IV SCH (05:49)
[2021-05-19 06:00] VITALS: BP 122/56
[2021-05-19 07:10] LABS: HEMATOCRIT 28.3 % (36.0-47.0); HEMOGLOBIN 8.8 g/dl (12.0-15.5); MEAN CORPUSCULAR HEMOGLOBIN 29.7 pg (27.0-33.0); MEAN CORPUSCULAR HGB CONC 31.1 g/dl (32.0-36.5); MEAN CORPUSCULAR VOLUME 95.6 fl (80.0-96.0); PLATELET COUNT, AUTOMATED 153 10^3/uL (150-450); RED BLOOD COUNT 2.96 10^6/uL (4.00-5.40); WHITE BLOOD COUNT 11.5 10^3/uL (4.0-10.0)
[2021-05-19 07:34] LABS: ALBUMIN 1.9 GM/DL (3.2-5.2); BILIRUBIN,TOTAL 0.2 MG/DL (0.2-1.0); CREATININE FOR GFR 1.74 MG/DL (0.55-1.30); GLOMERULAR FILTRATION RATE 30.9 (>45); POTASSIUM SERUM 3.3 MEQ/L (3.5-5.1); TOTAL PROTEIN 4.9 GM/DL (6.4-8.2)
[2021-05-19] MEDS ORDERED: POTASSIUM CHLORIDE 10MEQ SR TABLET PO ONE (08:00)
[2021-05-19] MEDS: ACETAMINOPHEN 650MG ER TAB (TYLENOL ARTHRITIS) PO SCH ×2 (08:32→20:57)
[2021-05-19] MEDS: ESCITALOPRAM OXALATE 10 MG TAB (LEXAPRO) PO SCH (08:33)
[2021-05-19] MEDS: CYANOCOBALAMIN 500 MCG TAB PO SCH (08:35)
[2021-05-19] MEDS: DOCUSATE SODIUM 100MG CAPSULE PO SCH (08:35)
[2021-05-19] MEDS: SUCRALFATE 1 GM TAB PO SCH ×2 (08:35→20:57)
[2021-05-19] MEDS: PANTOPRAZOLE 40MG TAB (PROTONIX) PO SCH (08:36)
[2021-05-19] MEDS: METOCLOPRAMIDE 5 MG TAB PO SCH ×2 (08:36→20:58)
[2021-05-19] MEDS: COLESEVELAM 625 MG TAB (WELCHOL) PO SCH ×2 (08:36→17:02)
[2021-05-19] MEDS: ROSUVASTATIN 10 MG TAB (CRESTOR) PO SCH (08:36)
[2021-05-19] MEDS: bisoproloL fumarate 5 MG TAB PO SCH (08:36)
[2021-05-19] MEDS: CLOPIDOGREL 75 MG TAB PO SCH (08:37)
[2021-05-19] MEDS: COLCHICINE 0.6 MG TABLET PO SCH (08:44)
[2021-05-19] MEDS: ASPIRIN 81MG ENTERIC TABLET PO SCH (08:46)
[2021-05-19] MEDS ORDERED: SPIRONOLACTONE 25 MG TAB PO SCH (09:00)
[2021-05-19] MEDS ORDERED: LOSARTAN 50MG TABLET PO SCH (09:00)
[2021-05-19] MEDS: HEPARIN SOD (PORCINE) 5000UNITS/ML 1ML VIAL/SYRINGE SQ SCH ×2 (11:20→20:57)
--- NOTE | 2021-05-19 12:40 | IPNPDOC ---
Text Note Date of Service The patient was seen on 05/19/21 at 1210 pm. NOTE The patient is doing well. She is sitting comfortably in the chair. She has no further ischemic rest pain of the right foot. Creatinine has improved to 1.7. BUN and is improving. On exam: She is afebrile with stable vital signs. Mild pallor+ Left groin femoral artery access site clean, with no evidence of hematoma. Bilateral lower abdomen skin maceration, under the pannus. Improving erythema of the right leg and the foot. There is dry gangrene of the right fourth and fifth toes-which are progressing to mummification. There are strong dopplerable right DP, PT signals Assessment: Status post right SFA stenting, and popliteal artery and posterior tibial artery balloon angioplasty on 05/18/2021. She is doing well. Her wrist pain has resolved, and the cellulitis of the right leg and foot improved Plan: Continue aspirin and Plavix. Hold off Eliquis for now. If she requires Eliquis suggest renal dose of Eliquis. Continue statins. Podiatry to consider right fourth and fifth toe amputations. We will follow as required. Please call with questions VS,Blaynee, I+O VS, Blaynee, I+O Laboratory Tests 05/19/21 06:30 Vital Signs Date Time Temp Pulse Resp B/P (MAP) Pulse Ox O2 Delivery O2 Flow Rate FiO2 05/19/21 08:36 76 125/56 05/19/21 06:00 98.7 16 95 Room Air 05/18/21 12:26 2.0 I&O- Last 24 Hours up to 6 AM 05/19/21 06:00 Intake Total 300 ml Output Total 0 ml Balance 300 ml Piper Castañeda MD May 19, 2021 12:40
[2021-05-19 14:00] VITALS: BP 127/53
--- NOTE | 2021-05-19 18:58 | IPNPDOC ---
Date Seen The patient was seen on 05/19/21. Progress Note SUBJECTIVE: No events overnight. Patient denies chest pain, SOB, fevers, chills. OBJECTIVE: PHYSICAL EXAMINATION: VS: Please see above CONSTITUTIONAL: No acute distress, AAO x 3 EYES: PERRLA, EOM intact HENT, MOUTH: Normocephalic, atraumatic, moist mucous membranes NECK: SUPPLE, no JVD, no lymphadenopathy, no carotid bruit CV: Regular rate and rhythm, S1S2 normal, no murmurs/rubs/gallops RESPIRATORY: Crackles in post lung ocampo-minimal. no rales/rhonchi/wheezes GI: BS positive in 4 quadrants, soft, nontender, nondistended, no rebound or guarding, no organomegaly : Deferred MUSCULOSKELETAL: Normal ROM. No cyanosis, clubbing, swelling, joint deformity, +1-2 pitting lower extremity edema INTEGUMENTARY: 6 cm necrotic wounds over the right lower extremity Achilles tendon area of leg, black and and cold fourth and fifth digit of the right foot. Reddened area around the fourth and fifth right foot digits; however, not warm to touch. Several crusted wounds anteriorly of the right and. There is a 3 cm wound of the left anterior alvarado. no rashes. Left groin area tender where chris ogram occurred but no increased bleeding. NEUROLOGIC: Cranial Nerves II-XII are intact. Decreased sensation to fine and dull touch in the fourth and fifth digit of the right foot PSYCHIATRIC: Mood and affect are normal LABORATORY DATA: Please see below MICRO: No growth at 24 hrs IMAGING: Right foot MRI: 1. Soft tissue swelling through the foot including the flexor and extensor muscles. 2. Focal soft tissue swelling 3rd 4th and 5th digits with no evidence of osteomyelitis. B/l lower ext arterial US: Moderate to severe plaque was seen bilaterally but right greater than left. A stenosis was seen at the right popliteal artery stenosis was also seen at the left popliteal artery proximally the distal posterior tibial artery was seen to be occluded. The examination was somewhat limited due to patient motion and plaque formation. Carotid US: 50-69 % category narrowing in the right internal carotid artery by Doppler velocity criteria. Right CCA and ICA velocities are decreased compared to the prior study. Less than 50% category narrowing in the left ICA by Doppler velocity criteria. Left CCA and ICA velocities are decreased compared to the prior study. RLE angiogram: See notes ASSESSMENT: 69 y/o F with extensive past medical history above admitted for right foot 4th and 5th digit ischemia, gangrene PLAN: #Gangrene of the right fourth and the fifth toes, associated with multilevel severe peripheral arterial disease. S/p trauma several weeks ago -Right lower ext arteriogram with findings significant for PAD- see report -C/w plavix, ASA, heparin -Vascular surgery following -Podiatry consulted for likely amputation of digits next week #RLE cellulitis -Zosyn renally dosed #Hypokalemia -KCL 40 -F/u daily #CKD stage III B -Cr still at baseline -F/u labs -Nephrology consulted #Chronic iron deficiency anemia likely 2/2 to slow (possibly chronic from history) GI bleed, on eliquis and ASA at home -Hx of duodenal ulcer/gastric pouch ulceration/hx of upper GI bleed, esophagitis with metaplasia -H/H lower today, no s/s of bleeding -Low iron history with iron supplement every other day -Discussed in detail with Dr. Ortiz (Cardiology) on prior admission who is cautious to take patient off Eliquis due to severe pulmonary arterial HTN, CHF, bioprosthetic valve and atrial fibrillation. -Also on prior admission Dr. Shea (general surgery) suggested o/p upper and lower scope but not done. If worsens, can consult. -Hx of needing transusions -F/u CBC daily, c/w home meds. HFpEF without exacerbation -Stable, asymptomatic. -C/w home meds -Tele, I&O's, daily wt A. fib, chronic and rate controlled -C/w eliquis BID. HOlding CCB and BB currently Hyperlipidemia. -C/w Crestor. COPD, not currently in exacerbation -C/w home meds DM type II -C/w levemir HS, ISS, AC/HS FS, consistent carb diet #HTN -HOlding home meds as BP normal DAVIDSON -Can use home Bipap Hx of GERD, PUD -C/w sucralfate, PPI but BID DVT px -Eliquis BID held for angiogram in AM-resume when ok by vascular surgery c/w scd/teds DISPOSITION: Vascular and nephrology consulted, f/u recommendations. Admitted inpatient. VS, I&O, 24H, Fishbone Vital Signs/I&O Vital Signs Date Time Temp Pulse Resp B/P (MAP) Pulse Ox O2 Delivery O2 Flow Rate FiO2 05/19/21 14:00 97.4 66 16 127/53 (77) 100 Room Air 05/18/21 12:26 2.0 I&O- Last 24 Hours up to 6 AM 05/19/21 06:00 Intake Total 300 ml Output Total 0 ml Balance 300 ml Laboratory Data 24H LABS Laboratory Tests 2 05/19/21 06:30: Nucleated Red Blood Cells % (auto) 0.0, Anion Gap 7L, Glomerular Filtration Rate 30.9L, Calcium Level 8.0L, Total Bilirubin 0.2, Aspartate Amino Transf (AST/SGOT) 15, Alanine Aminotransferase (ALT/SGPT) 24, Alkaline Phosphatase 135H, Total Protein 4.9L, Albumin 1.9L, Albumin/Globulin Ratio 0.6L CBC/BMP Laboratory Tests 05/19/21 06:30 Microbiology Microbiology 05/16/21 Blood Culture - Preliminary, Resulted No Growth after 72 hours. All specime... 05/16/21 Blood Culture - Preliminary, Resulted No Growth after 72 hours. All specime... Dana Calles MD May 19, 2021 18:58
--- NOTE | 2021-05-19 20:26 | IPNPDOC ---
Subjective CC/HPI The patient is a 70-year-old female admitted with a reason for visit of Right Eschemic Toes. Events since last encounter Pt was seen in AM. S/p Rt Leg angiogram. Renal function is stable. IV fluids have been stopped now. She continues on IV Abx General: Denies: Chills, Night Sweats, Fatigue Constitutional: Denies: Chills, Fever, Malaise Eyes: Denies: Pain, Vision change ENT: Denies: Head Aches, Ear Pain Skin: Reports: Rash, Lesions (Rt foot gangrene) Pulmonary: Denies: Dyspnea, Cough Cardiovascular: Denies: Chest Pain, Palpitations Gastrointestinal: Denies: Nausea, Vomiting Genitourinary: Denies: Dysuria, Frequency Hematologic: Denies: Bruising, Bleeding Excessively Musculoskeletal: Denies: Neck Pain, Back Pain Neurological: Denies: Weakness, Numbness Psych: Reports: Mood Normal Objective Physical Examination General Exam: Alert, No Acute Distress EYE EXAM: PERRLA, Conjunctiva & lids normal, EOMI ENT EXAM: Atraumatic, Mucous membr. moist/pink Neck Exam: Supple; No: JVD Chest Exam: Clear to auscultation, Normal air movement Heart Exam: Rate Normal; No: Murmurs, Rubs ABDOMEN EXAM: Normal bowel sounds, Soft; No: Tenderness Extremity Exam: Other (Rt 4th and 5 toe gangrene); No: Clubbing Skin Exam: Nl turgor and temperature, Breakdown (Rt 4,5 toes gangrene as mentioned above) Neuro Exam: Normal Speech, Strength at 5/5 X4 ext Psych Exam: Mental status NL, Mood NL Vital Signs/I&O Vital Signs Date Time Temp Pulse Resp B/P (MAP) Pulse Ox O2 Delivery O2 Flow Rate FiO2 05/19/21 14:00 97.4 66 16 127/53 (77) 100 Room Air 05/18/21 12:26 2.0 I&O- Last 24 Hours up to 6 AM 05/19/21 06:00 Intake Total 300 ml Output Total 0 ml Balance 300 ml Laboratory Data Labs 24H Laboratory Tests 2 05/19/21 06:30: Nucleated Red Blood Cells % (auto) 0.0, Anion Gap 7L, Glomerular Filtration Rate 30.9L, Calcium Level 8.0L, Total Bilirubin 0.2, Aspartate Amino Transf (AST/SGOT) 15, Alanine Aminotransferase (ALT/SGPT) 24, Alkaline Phosphatase 135H, Total Protein 4.9L, Albumin 1.9L, Albumin/Globulin Ratio 0.6L CBC/BMP Laboratory Tests 05/19/21 06:30 Current Medications Current Medications Medications (Trade) Dose Ordered Sig/Tariq Route PRN Reason Start Time Stop Time Status Last Admin Dose Admin Acetaminophen (Tylenol Arthritis Er) 1,300 mg BID PO 05/16/21 21:00 05/19/21 08:32 Apixaban (Eliquis) 5 mg BID PO 05/16/21 21:00 05/17/21 17:23 DC 05/17/21 10:25 Aspirin (Ecotrin) 81 mg DAILY PO 05/17/21 09:00 05/19/21 08:46 Bisoprolol Fumarate (Zebeta) 5 mg DAILY PO 05/17/21 09:00 05/19/21 08:36 Clopidogrel Bisulfate (PLAVix) 75 mg DAILY PO 05/19/21 09:00 05/19/21 08:37 Clopidogrel Bisulfate (PLAVix) 300 mg STAT STAT PO 05/18/21 13:07 05/18/21 13:08 Cancel Clopidogrel Bisulfate (PLAVix) 300 mg STAT STAT PO 05/18/21 13:12 05/18/21 13:13 DC 05/18/21 13:19 Colchicine (Colcrys) 0.3 mg DAILY PO 05/17/21 09:00 05/19/21 10:14 DC 05/19/21 08:44 Colesevelam HCl (WelChoL) 625 mg BIDWM PO 05/17/21 08:00 05/19/21 17:02 Cyanocobalamin (Vitamin B12) 500 mcg DAILY PO 05/17/21 09:00 05/19/21 08:35 Diltiazem HCl (Cardizem) 30 mg BID PO 05/16/21 21:00 05/19/21 08:36 Docusate Sodium (Colace) 100 mg DAILY PO 05/17/21 09:00 05/19/21 08:35 Escitalopram Oxalate (Lexapro) 10 mg DAILY PO 05/17/21 09:00 05/19/21 08:33 Ferrous Sulfate (Ferrous Sulfate) 650 mg Q48H PO 05/17/21 21:00 05/17/21 01:12 DC Gabapentin (Neurontin) 300 mg QHS PO 05/17/21 00:00 05/18/21 22:17 Heparin Sodium (Porcine) (Heparin) 5,000 units Q12H SQ 05/19/21 09:00 05/19/21 11:20 Home Med (Home Med List Complete!) ASDIRECTED XX 05/16/21 23:25 05/16/21 23:22 DC Hydralazine HCl (Apresoline) 10 mg Q6H PRN IV SEE DOSE INSTRUCTIONS 05/18/21 08:40 05/18/21 12:00 DC Losartan Potassium (Cozaar) 50 mg DAILY PO 05/17/21 09:00 05/17/21 16:53 DC 05/17/21 10:23 Losartan Potassium (Cozaar) 50 mg DAILY PO 05/19/21 09:00 05/18/21 09:01 DC Metoclopramide HCl (Reglan) 5 mg BID PO 05/16/21 21:00 05/19/21 08:36 Miscellaneous (Unresolved Clarification Entry) SEE LABEL COMMENTS UNRESOLVED XX 05/17/21 00:01 05/16/21 18:35 DC Nystatin (Mycostatin Powder, Nystop) apply between excoria... BID TOP 05/19/21 21:00 Pantoprazole Sodium (Protonix) 40 mg DAILY PO 05/17/21 09:00 05/19/21 08:36 Piperacillin Sod/ Tazobactam Sod 3.375 gm/Dextrose 50 ml @ 50 mls/hr Q6H IV 05/16/21 18:00 05/19/21 17:02 Potassium Chloride (Micro-K Extencaps) 10 meq BID PO 05/17/21 09:00 05/18/21 20:37 DC 05/18/21 14:03 Rosuvastatin Calcium (Crestor) 20 mg DAILY PO 05/17/21 09:00 05/19/21 08:36 Sodium Chloride 1,000 ml @ 50 mls/hr Q20H IV 05/18/21 00:05 05/18/21 08:27 DC 05/18/21 08:07 Sodium Chloride 1,000 ml @ 100 mls/hr Q10H IV 05/18/21 09:25 05/19/21 07:47 DC 05/19/21 05:49 Spironolactone (Aldactone) 25 mg DAILY PO 05/17/21 09:00 05/17/21 16:53 DC 05/17/21 10:25 Spironolactone (Aldactone) 25 mg DAILY PO 05/19/21 09:00 05/18/21 09:01 DC Sucralfate (Carafate) 1 gm BID PO 05/16/21 21:00 05/19/21 08:35 Torsemide (Demadex) 10 mg BID@0900,1700 PO 05/16/21 17:00 05/18/21 09:01 DC 05/17/21 18:22 Allergies Coded Allergies: Sulfa (Sulfonamide Antibiotics) (Verified Allergy, Severe, anaphylaxis, rash, 04/30/19) neomycin (Verified Allergy, Intermediate, rash, 04/30/19) ramipril (Verified Adverse Reaction, Intermediate, cough, 04/30/19) Assessment/Plan Date Seen The patient was seen on 05/19/21 in AM. Plan / VTE VTE Prophylaxis Ordered?: Yes Plan Orders past 48 Hours Orders Ns (Nacl 0.9%) (05/18/21 08:25) Ns (Nacl 0.9%) (05/18/21 09:25) Chip Mixer Consult (05/18/21 08:24) Hydralazine Hcl Inj (Apresoline) (05/18/21 08:40) Pharmacist Consult (05/18/21 12:52) Clopidogrel Bisulfate (Plavix) (05/19/21 09:00) Clopidogrel Bisulfate (Plavix) (05/18/21 13:12) 2 Gram Sodium Diet (05/18/21 Lunch) Fingerstick Blood Sugar (05/18/21 13:58) Bedrest (05/18/21 14:31) Hob Maybe Elevated Up To 45 De (05/18/21 14:31) * Nursing Order * (05/18/21 14:31) * Nursing Order * (05/18/21 14:31) Vital Signs Freq & Parameters (05/18/21 14:31) Apply/Change Dressing (05/18/21 14:31) May Shower (05/18/21 14:31) Isolation: Contact & Cleaning (05/18/21 16:31) Wound Care (05/18/21 17:58) * Nursing Order * (05/18/21 22:09) Potassium Chloride (Micro-K Extencaps) (05/19/21 08:00) Heparin (Heparin) (05/19/21 09:00) Nystatin Powder (Mycostatin Powder, Nyst (05/19/21 21:00) Iron (Fe) (05/20/21 06:00) Total Iron Binding Capacit (05/20/21 06:00) Ferritin (05/20/21 06:00) Plan Text 1. Chronic kidney disease stage 3B: ARB and diuretic stopped. She is s/p IV fluids. Renal function stable with Cr 1.7. 2. Hypertension: ARB stopped. OK to cont BB and diltiazem. 3. Atrial fibrillation: Ventricular rate is well controlled with beta-chivo and calcium channel chivo. She has been on chronic anticoagulation with Eliquis. 4. Anemia: She has a history of gastric bypass and iron deficiency in the past.Check iron levels and give IV iron if levels are low. 5. Right foot ischemia with 4th and 5th gangrenous toes: Peripheral vascular disease on Rt leg angiogram. Continue antiplatelet and anti coagulation with statins. Podiatry to eval for possible amputation. cont Zosyn for now. 6.Hypokalemia: Oral Kcl given in AM GASPER CHUNG MD May 19, 2021 20:26
[2021-05-19] MEDS: NYSTATIN 100,000 UNITS/GM TOPICAL PWD 15 GM TOP SCH (20:56)
[2021-05-19] MEDS: GABAPENTIN 300 MG CAP PO SCH (20:57)
[2021-05-19 22:00] VITALS: BP 126/54
[2021-05-20] MEDS: PIPERACILLIN/TAZOBACTAM SOD 3.375 GM in D5W MINI-BAG PLUS 50 ML IV SCH ×5 (00:26→23:56)
[2021-05-20 06:00] VITALS: BP 121/54
[2021-05-20 07:54] LABS: HEMATOCRIT 27.6 % (36.0-47.0); HEMOGLOBIN 8.5 g/dl (12.0-15.5); MEAN CORPUSCULAR HEMOGLOBIN 29.5 pg (27.0-33.0); MEAN CORPUSCULAR HGB CONC 30.8 g/dl (32.0-36.5); MEAN CORPUSCULAR VOLUME 95.8 fl (80.0-96.0); PLATELET COUNT, AUTOMATED 149 10^3/uL (150-450); RED BLOOD COUNT 2.88 10^6/uL (4.00-5.40); WHITE BLOOD COUNT 10.9 10^3/uL (4.0-10.0)
[2021-05-20 08:17] LABS: ALBUMIN 1.9 GM/DL (3.2-5.2); BILIRUBIN,TOTAL 0.2 MG/DL (0.2-1.0); CALCIUM LEVEL 8.1 MG/DL (8.8-10.2); CREATININE FOR GFR 1.8 MG/DL (0.55-1.30); GLOMERULAR FILTRATION RATE 29.7 (>45); POTASSIUM SERUM 3.8 MEQ/L (3.5-5.1); TOTAL PROTEIN 5.1 GM/DL (6.4-8.2)
[2021-05-20] MEDS: HEPARIN SOD (PORCINE) 5000UNITS/ML 1ML VIAL/SYRINGE SQ SCH ×2 (08:17→21:39)
[2021-05-20] MEDS: ACETAMINOPHEN 650MG ER TAB (TYLENOL ARTHRITIS) PO SCH ×2 (08:17→21:40)
[2021-05-20] MEDS: DOCUSATE SODIUM 100MG CAPSULE PO SCH (08:18)
[2021-05-20] MEDS: CYANOCOBALAMIN 500 MCG TAB PO SCH (08:18)
[2021-05-20] MEDS: CLOPIDOGREL 75 MG TAB PO SCH (08:18)
[2021-05-20] MEDS: PANTOPRAZOLE 40MG TAB (PROTONIX) PO SCH (08:18)
[2021-05-20] MEDS: ASPIRIN 81MG ENTERIC TABLET PO SCH (08:18)
[2021-05-20] MEDS: METOCLOPRAMIDE 5 MG TAB PO SCH ×2 (08:19→21:40)
[2021-05-20] MEDS: ESCITALOPRAM OXALATE 10 MG TAB (LEXAPRO) PO SCH (08:19)
[2021-05-20] MEDS: bisoproloL fumarate 5 MG TAB PO SCH (08:19)
[2021-05-20] MEDS: ROSUVASTATIN 10 MG TAB (CRESTOR) PO SCH (08:19)
[2021-05-20] MEDS: SUCRALFATE 1 GM TAB PO SCH ×2 (08:19→21:40)
[2021-05-20] MEDS: COLESEVELAM 625 MG TAB (WELCHOL) PO SCH ×2 (08:19→17:23)
[2021-05-20] MEDS: NYSTATIN 100,000 UNITS/GM TOPICAL PWD 15 GM TOP SCH ×2 (08:24→21:41)
[2021-05-20] MEDS ORDERED: KCL 20MEQ IN D5W 1000ML 1,000 ML IV SCH (13:45)
[2021-05-20 14:00] VITALS: BP 133/55
--- NOTE | 2021-05-20 14:38 | IPNPDOC ---
Date Seen The patient was seen on 05/20/21. Progress Note SUBJECTIVE: Asymptomatic bradycardia this AM, recorded as low as high 40's. Stopped BB and put holding parameters on CCB. Patient denies blurry vision, dizziness, lightheadedness, chest pain, SOB, fevers, chills. OBJECTIVE: PHYSICAL EXAMINATION: VS: Please see below CONSTITUTIONAL: No acute distress, AAO x 3 EYES: PERRLA, EOM intact HENT, MOUTH: Normocephalic, atraumatic, moist mucous membranes NECK: SUPPLE, no JVD, no lymphadenopathy, no carotid bruit CV: Regular rate and rhythm, S1S2 normal, no murmurs/rubs/gallops RESPIRATORY: Crackles in post lung ocampo-minimal. no rales/rhonchi/wheezes GI: BS positive in 4 quadrants, soft, nontender, nondistended, no rebound or guarding, no organomegaly : Deferred MUSCULOSKELETAL: Normal ROM. No cyanosis, clubbing, swelling, joint deformity, +1-2 pitting lower extremity edema INTEGUMENTARY: 6 cm necrotic wounds over the right lower extremity Achilles tendon area of leg, black and and cold fourth and fifth digit of the right foot. decreased reddened area around the fourth and fifth right foot digits; however, not warm to touch. Several crusted wounds anteriorly of the right and. There is a 3 cm wound of the left anterior alvarado. no rashes. Left groin area tender where angiogram occurred but no increased bleeding. NEUROLOGIC: Cranial Nerves II-XII are intact. Decreased sensation to fine and dull touch in the fourth and fifth digit of the right foot PSYCHIATRIC: Mood and affect are normal LABORATORY DATA: Please see below MICRO: BCx: NG IMAGING: Right foot MRI: 1. Soft tissue swelling through the foot including the flexor and extensor muscles. 2. Focal soft tissue swelling 3rd 4th and 5th digits with no evidence of osteomyelitis. B/l lower ext arterial US: Moderate to severe plaque was seen bilaterally but right greater than left. A stenosis was seen at the right popliteal artery stenosis was also seen at the left popliteal artery proximally the distal posterior tibial artery was seen to be occluded. The examination was somewhat limited due to patient motion and plaque formation. Carotid US: 50-69 % category narrowing in the right internal carotid artery by Doppler velocity criteria. Right CCA and ICA velocities are decreased compared to the prior study. Less than 50% category narrowing in the left ICA by Doppler velocity criteria. Left CCA and ICA velocities are decreased compared to the prior study. RLE angiogram: See notes ASSESSMENT: 69 y/o F with extensive past medical history above admitted for right foot 4th and 5th digit ischemia, gangrene PLAN: #Gangrene of the right fourth and the fifth toes, associated with multilevel severe peripheral arterial disease. S/p trauma several weeks ago -Right lower ext arteriogram with findings significant for PAD- see report -C/w plavix, ASA, heparin -Vascular surgery following -Podiatry consulted for likely amputation of digits this week. F/u with Dr. Kahn in the AM #Bradycardia, A. fib chronic -heparin, holding BB currently, CCB dose decreased and holding parameters placed -Tele #RLE cellulitis-improved in area around gangrenous toes -Zosyn renally dosed #CKD stage III B -Cr slightly increased -Started on IVFs by nephrology -F/u labs -Nephrology following #Chronic iron deficiency anemia likely 2/2 to slow (possibly chronic from history) GI bleed, on eliquis and ASA at home -Hx of duodenal ulcer/gastric pouch ulceration/hx of upper GI bleed, esophagitis with metaplasia -H/H lower today, no s/s of bleeding -Low iron history with iron supplement every other day -Discussed in detail with Dr. Ortiz (Cardiology) on prior admission who is cautious to take patient off Eliquis due to severe pulmonary arterial HTN, CHF, bioprosthetic valve and atrial fibrillation. -Also on prior admission Dr. Shea (general surgery) suggested o/p upper and lower scope but not done. If worsens, can consult. -Hx of needing transfusions -F/u CBC daily, c/w home meds. #HFpEF without exacerbation -Stable, asymptomatic. -D/c BB, holding parameters on CCB -Tele, I&O's, daily wt #Hyperlipidemia. -C/w Crestor. #COPD, not currently in exacerbation -C/w home meds #DM type II -C/w levemir HS, ISS, AC/HS FS, consistent carb diet #HTN -D/c BB #DAVIDSON -Can use home Bipap #Hx of GERD, PUD -C/w sucralfate, PPI BID #DVT px -Heparin SC for in preparation for likely amputation Resolved issues: #Hypokalemia DISPOSITION: Vascular and nephrology consulted, f/u recommendations. Podiatry to see after weekend and decide on when to do amputation of right lower ext digits. VS, I&O, 24H, Fishbone Vital Signs/I&O Vital Signs Date Time Temp Pulse Resp B/P (MAP) Pulse Ox O2 Delivery O2 Flow Rate FiO2 05/20/21 08:18 69 134/57 05/20/21 06:00 98.0 25 96 Room Air 05/18/21 12:26 2.0 I&O- Last 24 Hours up to 6 AM 05/20/21 05:59 Intake Total 1355 ml Output Total 0 ml Balance 1355 ml Laboratory Data 24H LABS Laboratory Tests 2 05/20/21 07:17: Nucleated Red Blood Cells % (auto) 0.0, Anion Gap 5L, Glomerular Filtration Rate 29.7L, Calcium Level 8.1L, Iron Level 24L, Total Iron Binding Capacity 141L, Transferrin % Saturation 17.0, Ferritin 481H, Total Bilirubin 0.2, Aspartate Amino Transf (AST/SGOT) 12, Alanine Aminotransferase (ALT/SGPT) 20, Alkaline Phosphatase 119H, Total Protein 5.1L, Albumin 1.9L, Albumin/Globulin Ratio 0.6L CBC/BMP Laboratory Tests 05/20/21 07:17 Microbiology Microbiology 05/16/21 Blood Culture - Preliminary, Resulted No Growth after 72 hours. All specime... 05/16/21 Blood Culture - Preliminary, Resulted No Growth after 72 hours. All specime... Dana Calles MD May 20, 2021 14:38
[2021-05-20] MEDS ORDERED: PILL CUTTER 1 EACH XX PRN (14:45)
[2021-05-20] MEDS: SPIRONOLACTONE 25 MG TAB PO SCH (16:08)
[2021-05-20] MEDS: IRON SUCROSE 200 MG in NS 100 ML IV SCH (17:23)
[2021-05-20 20:00] VITALS: BP 131/58
[2021-05-20] MEDS: GABAPENTIN 300 MG CAP PO SCH (21:40)
--- NOTE | 2021-05-20 22:11 | IPNPDOC ---
Subjective CC/HPI The patient is a 70-year-old female admitted with a reason for visit of Right Eschemic Toes. Events since last encounter Pt was trying to move from bed to sofa today AM when I saw her. Cr fluctuating 1.7<-->1.8. Persistent hypernatremia and hyperchloremia noted. She continues on IV Abx for Rt toe gangrene. General: Denies: Chills, Night Sweats, Fatigue Constitutional: Denies: Chills, Fever, Malaise Eyes: Denies: Pain, Vision change ENT: Denies: Head Aches, Ear Pain Skin: Reports: Lesions (Rt foot gangrene) Pulmonary: Denies: Dyspnea, Cough Cardiovascular: Denies: Chest Pain, Palpitations Gastrointestinal: Denies: Nausea, Vomiting Genitourinary: Denies: Dysuria, Frequency Hematologic: Denies: Bruising, Bleeding Excessively Musculoskeletal: Denies: Neck Pain, Back Pain Neurological: Denies: Weakness, Numbness Psych: Reports: Mood Normal Objective Physical Examination General Exam: Alert, No Acute Distress EYE EXAM: PERRLA, Conjunctiva & lids normal, EOMI ENT EXAM: Atraumatic, Mucous membr. moist/pink Neck Exam: Supple; No: JVD Chest Exam: Clear to auscultation, Normal air movement Heart Exam: Rate Normal; No: Murmurs, Rubs ABDOMEN EXAM: Normal bowel sounds, Soft; No: Tenderness Extremity Exam: Other (Rt 4th and 5 toe gangrene); No: Clubbing Skin Exam: Nl turgor and temperature, Breakdown (Rt 4,5 toes gangrene as mentioned above) Neuro Exam: Normal Speech, Strength at 5/5 X4 ext Psych Exam: Mental status NL, Mood NL Vital Signs/I&O Vital Signs Date Time Temp Pulse Resp B/P (MAP) Pulse Ox O2 Delivery O2 Flow Rate FiO2 05/20/21 21:40 73 131/58 05/20/21 14:00 98.7 21 98 Room Air 05/18/21 12:26 2.0 I&O- Last 24 Hours up to 6 AM 05/20/21 06:00 Intake Total 1405 ml Balance 1405 ml Laboratory Data Labs 24H Laboratory Tests 2 05/20/21 07:17: Nucleated Red Blood Cells % (auto) 0.0, Anion Gap 5L, Glomerular Filtration Rate 29.7L, Calcium Level 8.1L, Iron Level 24L, Total Iron Binding Capacity 141L, Transferrin % Saturation 17.0, Ferritin 481H, Total Bilirubin 0.2, Aspartate A gaby Transf (AST/SGOT) 12, Alanine Aminotransferase (ALT/SGPT) 20, Alkaline Phosphatase 119H, Total Protein 5.1L, Albumin 1.9L, Albumin/Globulin Ratio 0.6L CBC/BMP Laboratory Tests 05/20/21 07:17 Current Medications Current Medications Medications (Trade) Dose Ordered Sig/Tariq Route PRN Reason Start Time Stop Time Status Last Admin Dose Admin Acetaminophen (Tylenol Arthritis Er) 1,300 mg BID PO 05/16/21 21:00 05/20/21 21:40 Apixaban (Eliquis) 5 mg BID PO 05/16/21 21:00 05/17/21 17:23 DC 05/17/21 10:25 Aspirin (Ecotrin) 81 mg DAILY PO 05/17/21 09:00 05/20/21 08:18 Bisoprolol Fumarate (Zebeta) 5 mg DAILY PO 05/17/21 09:00 05/20/21 11:28 DC 05/20/21 08:19 Clopidogrel Bisulfate (PLAVix) 75 mg DAILY PO 05/19/21 09:00 05/20/21 08:18 Clopidogrel Bisulfate (PLAVix) 300 mg STAT STAT PO 05/18/21 13:07 05/18/21 13:08 Cancel Clopidogrel Bisulfate (PLAVix) 300 mg STAT STAT PO 05/18/21 13:12 05/18/21 13:13 DC 05/18/21 13:19 Colchicine (Colcrys) 0.3 mg DAILY PO 05/17/21 09:00 05/19/21 10:14 DC 05/19/21 08:44 Colesevelam HCl (WelChoL) 625 mg BIDWM PO 05/17/21 08:00 05/20/21 17:23 Cyanocobalamin (Vitamin B12) 500 mcg DAILY PO 05/17/21 09:00 05/20/21 08:18 Diltiazem HCl (Cardizem) 15 mg BID PO 05/20/21 21:00 05/20/21 21:40 Diltiazem HCl (Cardizem) 30 mg BID PO 05/16/21 21:00 05/20/21 14:38 DC 05/20/21 08:18 Docusate Sodium (Colace) 100 mg DAILY PO 05/17/21 09:00 05/20/21 08:18 Escitalopram Oxalate (Lexapro) 10 mg DAILY PO 05/17/21 09:00 05/20/21 08:19 Ferrous Sulfate (Ferrous Sulfate) 650 mg Q48H PO 05/17/21 21:00 05/17/21 01:12 DC Gabapentin (Neurontin) 300 mg QHS PO 05/17/21 00:00 05/20/21 21:40 Heparin Sodium (Porcine) (Heparin) 5,000 units Q12H SQ 05/19/21 09:00 05/20/21 21:39 Home Med (Home Med List Complete!) ASDIRECTED XX 05/16/21 23:25 05/16/21 23:22 DC Hydralazine HCl (Apresoline) 10 mg Q6H PRN IV SEE DOSE INSTRUCTIONS 05/18/21 08:40 05/18/21 12:00 DC Iron 200 mg/ Sodium Chloride 110 ml @ 110 mls/hr DAILY IV 05/20/21 16:00 05/23/21 09:59 05/20/21 17:23 Losartan Potassium (Cozaar) 50 mg DAILY PO 05/17/21 09:00 05/17/21 16:53 DC 05/17/21 10:23 Losartan Potassium (Cozaar) 50 mg DAILY PO 05/19/21 09:00 05/18/21 09:01 DC Metoclopramide HCl (Reglan) 5 mg BID PO 05/16/21 21:00 05/20/21 21:40 Miscellaneous (Unresolved Clarification Entry) SEE LABEL COMMENTS UNRESOLVED XX 05/17/21 00:01 05/16/21 18:35 DC Nystatin (Mycostatin Powder, Nystop) apply between excoria... BID TOP 05/19/21 21:00 05/20/21 21:41 Pantoprazole Sodium (Protonix) 40 mg DAILY PO 05/17/21 09:00 05/20/21 08:18 Piperacillin Sod/ Tazobactam Sod 3.375 gm/Dextrose 50 ml @ 50 mls/hr Q6H IV 05/16/21 18:00 05/20/21 18:41 Potassium Chloride/Dextrose 1,000 ml @ 70 mls/hr [id number] IV 05/20/21 13:45 05/21/21 04:02 05/20/21 16:09 Potassium Chloride (Micro-K Extencaps) 10 meq BID PO 05/17/21 09:00 05/18/21 20:37 DC 05/18/21 14:03 Rosuvastatin Calcium (Crestor) 20 mg DAILY PO 05/17/21 09:00 05/20/21 08:19 Sodium Chloride 1,000 ml @ 50 mls/hr Q20H IV 05/18/21 00:05 05/18/21 08:27 DC 05/18/21 08:07 Sodium Chloride 1,000 ml @ 100 mls/hr Q10H IV 05/18/21 09:25 05/19/21 07:47 DC 05/19/21 05:49 Spironolactone (Aldactone) 25 mg DAILY PO 05/17/21 09:00 05/17/21 16:53 DC 05/17/21 10:25 Spironolactone (Aldactone) 25 mg DAILY PO 05/19/21 09:00 05/18/21 09:01 DC Spironolactone (Aldactone) 25 mg QAM PO 05/20/21 13:45 05/20/21 16:08 Sucralfate (Carafate) 1 gm BID PO 05/16/21 21:00 05/20/21 21:40 Torsemide (Demadex) 10 mg BID@0900,1700 PO 05/16/21 17:00 05/18/21 09:01 DC 05/17/21 18:22 Allergies Coded Allergies: Sulfa (Sulfonamide Antibiotics) (Verified Allergy, Severe, anaphylaxis, rash, 04/30/19) neomycin (Verified Allergy, Intermediate, rash, 04/30/19) ramipril (Verified Adverse Reaction, Intermediate, cough, 04/30/19) Assessment/Plan Date Seen The patient was seen on 05/20/21 in AM. Plan / VTE VTE Prophylaxis Ordered?: Yes Plan Orders past 48 Hours Orders * Nursing Order * (05/18/21 22:09) Potassium Chloride (Micro-K Extencaps) (05/19/21 08:00) Heparin (Heparin) (05/19/21 09:00) Nystatin Powder (Mycostatin Powder, Nyst (05/19/21 21:00) Ferritin (05/20/21 06:00) Total Iron Binding Capacit (05/20/21 06:00) Iron Sucrose (Venofer) (05/20/21 16:00) Kcl 20meq In D5w 1000ml (Kcl 20meq In D5 (05/20/21 13:45) Spironolactone (Aldactone) (05/20/21 13:45) Diltiazem (Cardizem) (05/20/21 21:00) Pill Cutter (Pill Cutter) (05/20/21 14:45) Plan Text 1. Chronic kidney disease stage 3B: ARB and diuretic stopped. Cr 1.7-->1.8. Persistent hypernatremia. Start D5W. 2. Hypertension: ARB stopped. OK to cont BB and diltiazem. 3. Atrial fibrillation: Ventricular rate is well controlled with beta-chivo and calcium channel chivo. She has been on chronic anticoagulation with Eliquis. 4. Iron def Anemia: She has a history of gastric bypass and iron levels are low. Start venofer daily. Oral iron is not adequate. 5. Right foot ischemia with 4th and 5th gangrenous toes: Peripheral vascular disease on Rt leg angiogram. Continue antiplatelet and anticoagulation with statins. Podiatry to eval for possible amputation. cont Zosyn for now. 6.Hypokalemia: Oral Kcl and restart spironolactone. 7.Hypernatremia: D5W started as above. Spironolactone also being restarted. GASPER CHUNG MD May 20, 2021 22:11
[2021-05-21] MEDS: PIPERACILLIN/TAZOBACTAM SOD 3.375 GM in D5W MINI-BAG PLUS 50 ML IV SCH ×4 (05:52→23:38)
[2021-05-21 06:00] VITALS: BP 142/65
[2021-05-21 08:07] LABS: HEMATOCRIT 27.7 % (36.0-47.0); HEMOGLOBIN 8.6 g/dl (12.0-15.5); MEAN CORPUSCULAR HEMOGLOBIN 29.6 pg (27.0-33.0); MEAN CORPUSCULAR VOLUME 95.2 fl (80.0-96.0); PLATELET COUNT, AUTOMATED 152 10^3/uL (150-450); RED BLOOD COUNT 2.91 10^6/uL (4.00-5.40); WHITE BLOOD COUNT 10.5 10^3/uL (4.0-10.0)
[2021-05-21 08:39] LABS: ALBUMIN 1.8 GM/DL (3.2-5.2); BILIRUBIN,TOTAL 0.3 MG/DL (0.2-1.0); CALCIUM LEVEL 8.1 MG/DL (8.8-10.2); CREATININE FOR GFR 1.76 MG/DL (0.55-1.30); GLOMERULAR FILTRATION RATE 30.5 (>45); POTASSIUM SERUM 4.1 MEQ/L (3.5-5.1); TOTAL PROTEIN 5.1 GM/DL (6.4-8.2)
[2021-05-21] MEDS: ROSUVASTATIN 10 MG TAB (CRESTOR) PO SCH (08:59)
[2021-05-21] MEDS: COLESEVELAM 625 MG TAB (WELCHOL) PO SCH ×2 (08:59→18:06)
[2021-05-21] MEDS: PANTOPRAZOLE 40MG TAB (PROTONIX) PO SCH (09:00)
[2021-05-21] MEDS: DOCUSATE SODIUM 100MG CAPSULE PO SCH (09:00)
[2021-05-21] MEDS: SUCRALFATE 1 GM TAB PO SCH ×2 (09:00→20:04)
[2021-05-21] MEDS: ESCITALOPRAM OXALATE 10 MG TAB (LEXAPRO) PO SCH (09:00)
[2021-05-21] MEDS: CLOPIDOGREL 75 MG TAB PO SCH (09:00)
[2021-05-21] MEDS: ACETAMINOPHEN 650MG ER TAB (TYLENOL ARTHRITIS) PO SCH ×2 (09:00→20:04)
[2021-05-21] MEDS: ASPIRIN 81MG ENTERIC TABLET PO SCH (09:01)
[2021-05-21] MEDS: METOCLOPRAMIDE 5 MG TAB PO SCH ×2 (09:01→20:04)
[2021-05-21] MEDS: CYANOCOBALAMIN 500 MCG TAB PO SCH (09:01)
[2021-05-21] MEDS: SPIRONOLACTONE 25 MG TAB PO SCH (09:08)
[2021-05-21] MEDS: IRON SUCROSE 200 MG in NS 100 ML IV SCH (09:08)
[2021-05-21] MEDS: NYSTATIN 100,000 UNITS/GM TOPICAL PWD 15 GM TOP SCH ×2 (09:09→20:04)
[2021-05-21] MEDS: HEPARIN SOD (PORCINE) 5000UNITS/ML 1ML VIAL/SYRINGE SQ SCH (09:12)
[2021-05-21 14:00] VITALS: BP 130/75
[2021-05-21 15:37] VITALS: BP 118/58
[2021-05-21 16:01] LABS: MAGNESIUM LEVEL 2.1 MG/DL (1.8-2.4); PHOSPHORUS LEVEL 3.1 MG/DL (2.5-4.9)
--- NOTE | 2021-05-21 17:25 | IPNPDOC ---
Date Seen The patient was seen on 05/21/21. Progress Note SUBJECTIVE: Patient's bradycardia has improved since modifying medications. Podiatry to evaluate today to discuss digit amputation. Patient denies blurry vision, dizziness, lightheadedness, chest pain, SOB, fevers, chills. OBJECTIVE: PHYSICAL EXAMINATION: VS: Please see below CONSTITUTIONAL: No acute distress, AAO x 3 EYES: PERRLA, EOM intact HENT, MOUTH: Normocephalic, atraumatic, moist mucous membranes NECK: SUPPLE, no JVD, no lymphadenopathy, no carotid bruit CV: Regular rate and rhythm, S1S2 normal, no murmurs/rubs/gallops RESPIRATORY: Crackles in post lung ocampo-minimal. no rales/rhonchi/wheezes GI: BS positive in 4 quadrants, soft, nontender, nondistended, no rebound or gu arding, no organomegaly : Deferred MUSCULOSKELETAL: Normal ROM. No cyanosis, clubbing, swelling, joint deformity, +1-2 pitting lower extremity edema INTEGUMENTARY: 6 cm necrotic wounds over the right lower extremity Achilles tendon area of leg, black and and cold fourth and fifth digit of the right foot. decreased reddened area around the fourth and fifth right foot digits; however, not warm to touch. Several crusted wounds anteriorly of the right and. There is a 3 cm wound of the left anterior alvarado. no rashes. Left groin area tender where angiogram occurred but no increased bleeding. NEUROLOGIC: Cranial Nerves II-XII are intact. Decreased sensation to fine and dull touch in the fourth and fifth digit of the right foot PSYCHIATRIC: Mood and affect are normal LABORATORY DATA: Please see below MICRO: BCx: NG IMAGING: Right foot MRI: 1. Soft tissue swelling through the foot including the flexor and extensor muscles. 2. Focal soft tissue swelling 3rd 4th and 5th digits with no evidence of osteomyelitis. B/l lower ext arterial US: Moderate to severe plaque was seen bilaterally but right greater than left. A stenosis was seen at the right popliteal artery stenosis was also seen at the left popliteal artery proximally the distal posterior tibial artery was seen to be occluded. The examination was somewhat limited due to patient motion and plaque formation. Carotid US: 50-69 % category narrowing in the right internal carotid artery by Doppler velocity criteria. Right CCA and ICA velocities are decreased compared to the prior study. Less than 50% category narrowing in the left ICA by Doppler velocity criteria. Left CCA and ICA velocities are decreased compared to the prior study. RLE angiogram: See notes ASSESSMENT: 69 y/o F with extensive past medical history above admitted for right foot 4th and 5th digit ischemia, gangrene PLAN: #Gangrene of the right fourth and the fifth toes, associated with multilevel severe peripheral arterial disease. S/p trauma several weeks ago -Right lower ext arteriogram with findings significant for PAD- see report -C/w plavix, ASA, heparin -Vascular surgery following -Podiatry consulted for likely amputation of digits this week. F/u with Dr. Kahn #Bradycardia- resolved -heparin, holding BB currently, CCB dose decreased and holding parameters placed -Tele #RLE cellulitis-improved in area around gangrenous toes -Zosyn renally dosed #CKD stage III B -Cr baseline -IVFs stopped -F/u labs -Nephrology following #Chronic iron deficiency anemia likely 2/2 to slow (possibly chronic from his tory) GI bleed, on eliquis and ASA at home -Hx of duodenal ulcer/gastric pouch ulceration/hx of upper GI bleed, esophagitis with metaplasia -H/H near baseline -Low iron history with iron supplement every other day -Discussed in detail with Dr. Ortiz (Cardiology) on prior admission who is cautious to take patient off Eliquis due to severe pulmonary arterial HTN, CHF, bioprosthetic valve and atrial fibrillation. -Also on prior admission Dr. Shea (general surgery) suggested o/p upper and l ower scope but not done. If worsens, can consult. -Hx of needing transfusions, on venofer per nephro -F/u CBC daily, c/w home meds. #Afib, chronic -rate controlled -Holding eliquis for possible amputation, on heparin, rate controlling meds above #HFpEF without exacerbation -Stable, asymptomatic. -D/c BB, decreased with holding parameters on CCB -Tele, I&O's, daily wt #Hyperlipidemia. -C/w Crestor. #COPD, not currently in exacerbation -C/w home meds #DM type II -C/w levemir HS, ISS, AC/HS FS, consistent carb diet #HTN -D/c BB #DAVIDSON -Can use home Bipap #Hx of GERD, PUD -C/w sucralfate, PPI BID #DVT px -Heparin SC for in preparation for likely amputation Resolved issues: #Hypokalemia DISPOSITION: Vascular and nephrology consulted, f/u recommendations. Podiatry to see today and decide on when to do amputation of right lower ext digits. VS, I&O, 24H, Fishbone Vital Signs/I&O Vital Signs Date Time Temp Pulse Resp B/P (MAP) Pulse Ox O2 Delivery O2 Flow Rate FiO2 05/21/21 15:37 98.8 64 21 118/58 (78) 96 Room Air 05/18/21 12:26 2.0 I&O- Last 24 Hours up to 6 AM 05/21/21 06:00 Intake Total 910 ml Balance 910 ml Laboratory Data 24H LABS Laboratory Tests 2 05/21/21 07:09: Nucleated Red Blood Cells % (auto) 0.3H, Anion Gap 7L, Glomerular Filtration Rate 30.5L, Calcium Level 8.1L, Phosphorus Level 3.1, Magnesium Level 2.1, Total Bilirubin 0.3, Aspartate Amino Transf (AST/SGOT) 18, Alanine Aminotransferase (ALT/SGPT) 26, Alkaline Phosphatase 115, Total Protein 5.1L, Albumin 1.8L, Albumin/Globulin Ratio 0.5L CBC/BMP Laboratory Tests 05/21/21 07:09 Microbiology Microbiology 05/16/21 Blood Culture - Preliminary, Resulted No Growth after 72 hours. All specime... 05/16/21 Blood Culture - Final, Complete NO GROWTH AFTER 5 DAYS Dana Calles MD May 21, 2021 17:25
[2021-05-21] MEDS: GABAPENTIN 300 MG CAP PO SCH (20:04)
--- NOTE | 2021-05-21 20:54 | IPNPDOC ---
Subjective CC/HPI The patient is a 70-year-old female admitted with a reason for visit of Right Eschemic Toes. Events since last encounter Pt was seen in AM. Renal function is stable. cr 1.8-->1.7 now. Hypernatremia improving Na 147-->143 now. General: Denies: Chills, Night Sweats Constitutional: Denies: Chills, Fever Eyes: Denies: Pain, Vision change ENT: Denies: Head Aches, Ear Pain Skin: Reports: Lesions; Denies: Rash (Rt foot gangrene) Pulmonary: Denies: Dyspnea, Cough Cardiovascular: Denies: Chest Pain, Palpitations Gastrointestinal: Denies: Nausea, Vomiting Genitourinary: Denies: Dysuria, Frequency Musculoskeletal: Denies: Neck Pain, Back Pain Neurological: Denies: Weakness Psych: Reports: Mood Normal Objective Physical Examination General Exam: Alert, No Acute Distress EYE EXAM: PERRLA, Conjunctiva & lids normal, EOMI ENT EXAM: Atraumatic, Mucous membr. moist/pink Neck Exam: Supple; No: JVD Chest Exam: Clear to auscultation, Normal air movement Heart Exam: Rate Normal; No: Murmurs, Rubs ABDOMEN EXAM: Normal bowel sounds, Soft; No: Tenderness Extremity Exam: Other (Rt 4th and 5 toe gangrene); No: Clubbing Skin Exam: Nl turgor and temperature, Breakdown (Rt 4,5 toes gangrene as mentioned above) Neuro Exam: Normal Speech, Strength at 5/5 X4 ext Psych Exam: Mental status NL, Mood NL Vital Signs/I&O Vital Signs Date Time Temp Pulse Resp B/P (MAP) Pulse Ox O2 Delivery O2 Flow Rate FiO2 05/21/21 20:04 95 146/67 05/21/21 15:37 98.8 21 96 Room Air 05/18/21 12:26 2.0 I&O- Last 24 Hours up to 6 AM 05/21/21 06:00 Intake Total 910 ml Balance 910 ml Laboratory Data Labs 24H Laboratory Tests 2 05/21/21 07:09: Nucleated Red Blood Cells % (auto) 0.3H, Anion Gap 7L, Glomerular Filtration Rate 30.5L, Calcium Level 8.1L, Phosphorus Level 3.1, Magnesium Level 2.1, Total Bilirubin 0.3, Aspartate Amino Transf (AST/SGOT) 18, Alanine Aminotransferase (ALT/SGPT) 26, Alkaline Phosphatase 115, Total Protein 5.1L, Albumin 1.8L, Albumin/Globulin Ratio 0.5L CBC/BMP Laboratory Tests 05/21/21 07:09 Current Medications Current Medications Medications (Trade) Dose Ordered Sig/Tariq Route PRN Reason Start Time Stop Time Status Last Admin Dose Admin Acetaminophen (Tylenol Arthritis Er) 1,300 mg BID PO 05/16/21 21:00 05/21/21 20:04 Apixaban (Eliquis) 5 mg BID PO 05/16/21 21:00 05/17/21 17:23 DC 05/17/21 10:25 Aspirin (Ecotrin) 81 mg DAILY PO 05/17/21 09:00 05/21/21 09:01 Bisoprolol Fumarate (Zebeta) 5 mg DAILY PO 05/17/21 09:00 05/20/21 11:28 DC 05/20/21 08:19 Clopidogrel Bisulfate (PLAVix) 75 mg DAILY PO 05/19/21 09:00 05/21/21 09:00 Clopidogrel Bisulfate (PLAVix) 300 mg STAT STAT PO 05/18/21 13:07 05/18/21 13:08 Cancel Clopidogrel Bisulfate (PLAVix) 300 mg STAT STAT PO 05/18/21 13:12 05/18/21 13:13 DC 05/18/21 13:19 Colchicine (Colcrys) 0.3 mg DAILY PO 05/17/21 09:00 05/19/21 10:14 DC 05/19/21 08:44 Colesevelam HCl (WelChoL) 625 mg BIDWM PO 05/17/21 08:00 05/21/21 18:06 Cyanocobalamin (Vitamin B12) 500 mcg DAILY PO 05/17/21 09:00 05/21/21 09:01 Diltiazem HCl (Cardizem) 15 mg BID PO 05/20/21 21:00 05/21/21 20:04 Diltiazem HCl (Cardizem) 30 mg BID PO 05/16/21 21:00 05/20/21 14:38 DC 05/20/21 08:18 Docusate Sodium (Colace) 100 mg DAILY PO 05/17/21 09:00 05/20/21 08:18 Escitalopram Oxalate (Lexapro) 10 mg DAILY PO 05/17/21 09:00 05/21/21 09:00 Ferrous Sulfate (Ferrous Sulfate) 650 mg Q48H PO 05/17/21 21:00 05/17/21 01:12 DC Gabapentin (Neurontin) 300 mg QHS PO 05/17/21 00:00 05/21/21 20:04 Heparin Sodium (Porcine) (Heparin) 5,000 units Q12H SQ 05/19/21 09:00 Hold 05/21/21 09:12 Home Med (Home Med List Complete!) ASDIRECTED XX 05/16/21 23:25 05/16/21 23:22 DC Hydralazine HCl (Apresoline) 10 mg Q6H PRN IV SEE DOSE INSTRUCTIONS 05/18/21 08:40 05/18/21 12:00 DC Iron 200 mg/ Sodium Chloride 110 ml @ 110 mls/hr DAILY IV 05/20/21 16:00 05/23/21 09:59 05/21/21 09:08 Losartan Potassium (Cozaar) 50 mg DAILY PO 05/17/21 09:00 05/17/21 16:53 DC 05/17/21 10:23 Losartan Potassium (Cozaar) 50 mg DAILY PO 05/19/21 09:00 05/18/21 09:01 DC Metoclopramide HCl (Reglan) 5 mg BID PO 05/16/21 21:00 05/21/21 20:04 Miscellaneous (Unresolved Clarification Entry) SEE LABEL COMMENTS UNRESOLVED XX 05/17/21 00:01 05/16/21 18:35 DC Nystatin (Mycostatin Powder, Nystop) apply between excoria... BID TOP 05/19/21 21:00 05/21/21 20:04 Pantoprazole Sodium (Protonix) 40 mg DAILY PO 05/17/21 09:00 05/21/21 09:00 Piperacillin Sod/ Tazobactam Sod 3.375 gm/Dextrose 50 ml @ 50 mls/hr Q6H IV 05/16/21 18:00 05/21/21 18:07 Potassium Chloride/Dextrose 1,000 ml @ 70 mls/hr [id number] IV 05/20/21 13:45 05/21/21 04:02 DC 05/20/21 16:09 Potassium Chloride (Micro-K Extencaps) meq BID PO 05/17/21 09:00 05/18/21 20:37 DC 05/18/21 14:03 Rosuvastatin Calcium (Crestor) 20 mg DAILY PO 05/17/21 09:00 05/21/21 08:59 Sodium Chloride 1,000 ml @ 50 mls/hr Q20H IV 05/18/21 00:05 05/18/21 08:27 DC 05/18/21 08:07 Sodium Chloride 1,000 ml @ 100 mls/hr Q10H IV 05/18/21 09:25 05/19/21 07:47 DC 05/19/21 05:49 Spironolactone (Aldactone) 25 mg DAILY PO 05/17/21 09:00 05/17/21 16:53 DC 05/17/21 10:25 Spironolactone (Aldactone) 25 mg DAILY PO 05/19/21 09:00 05/18/21 09:01 DC Spironolactone (Aldactone) 25 mg QAM PO 05/20/21 13:45 05/21/21 09:08 Sucralfate (Carafate) 1 gm BID PO 05/16/21 21:00 05/21/21 20:04 Torsemide (Demadex) 10 mg BID@0900,1700 PO 05/16/21 17:00 05/18/21 09:01 DC 05/17/21 18:22 Allergies Coded Allergies: Sulfa (Sulfonamide Antibiotics) (Verified Allergy, Severe, anaphylaxis, rash, 04/30/19) neomycin (Verified Allergy, Intermediate, rash, 04/30/19) ramipril (Verified Adverse Reaction, Intermediate, cough, 04/30/19) Assessment/Plan Date Seen The patient was seen on 05/21/21 in AM. Plan / VTE VTE Prophylaxis Ordered?: Yes Plan Orders past 48 Hours Orders Iron Sucrose (Venofer) (05/20/21 16:00) Kcl 20meq In D5w 1000ml (Kcl 20meq In D5 (05/20/21 13:45) Spironolactone (Aldactone) (05/20/21 13:45) Diltiazem (Cardizem) (05/20/21 21:00) Pill Cutter (Pill Cutter) (05/20/21 14:45) Magnesium Level (05/21/21 07:09) Phosphorous Level (05/21/21 07:09) Npo Diet For Test/Procedure (05/22/21 Dinner) Plan Text 1. Chronic kidney disease stage 3B: ARB and diuretic stopped. Cr 1.8-->1.7. Stable renal function. 2. Hypertension: ARB stopped. OK to cont BB and diltiazem. 3. Atrial fibrillation: Ventricular rate is well controlled with beta-chivo and calcium channel chivo. She has been on chronic anticoagulation with Eliquis. 4. Iron def Anemia: history of gastric bypass and iron levels are low. Started IV Venofer. 5. Right foot ischemia with 4th and 5th gangrenous toes: Peripheral vascular disease on Rt leg angiogram. Continue antiplatelet and anticoagulation with statins. Podiatry to eval for possible amputation. cont Zosyn for now. 6.Hypokalemia: Oral Kcl and spironolactone. 7.Hypernatremia: Improved. D5W given. Spironolactone also being restarted. GASPER CHUNG MD May 21, 2021 20:54
[2021-05-21 22:00] VITALS: BP 146/67
[2021-05-22] MEDS: PIPERACILLIN/TAZOBACTAM SOD 3.375 GM in D5W MINI-BAG PLUS 50 ML IV SCH ×4 (05:37→23:09)
[2021-05-22 06:00] VITALS: BP 131/66
--- NOTE | 2021-05-22 08:28 | IPN ---
PROGRESS NOTE DATE: 05/21/2021 APPROXIMATE TIME: 5 p.m. CHIEF COMPLAINT: Patient was seen at bedside for evaluation of vascular ulcerations with gangrene of the fourth and fifth toes of the right foot. Patient states that since she has had a surgical correction (vascular stenting) on the right side she has noticed a reduction in pain and tenderness of her foot. She denies shortness of breath or chest pain. PHYSICAL EXAMINATION: Alert and well-oriented 70-year-old female. Temperature is 97.9, pulse is 95, respirations 25, blood pressure is 146/67. Pulse oximetry on room air is 92. Evaluation of her foot reveals the fourth and fifth digits now to be completely mummified, firm to the touch, there is no discharge from the border between the viable and nonviable skin. The amount of necrotic tissue is 4 cm on the fourth toe and 3 cm on the third toe. Does not appear to extend onto the third digit. Her pedal pulses cannot be appreciated with palpation. LABORATORY DATA: WBCs are 10.9, GFR is 29.7, albumin is 1.9. Creatinine is 1.8. Blood cultures revealed no growth. ASSESSMENT: Gangrene of fourth and fifth toes of right foot. PLAN: Will hold patient's Heparin tonight. Patient may have breakfast before 7 o'clock tomorrow (05/22/21). Informed consent was obtained and signed by the patient for partial amputation of the fourth and fifth rays of the right foot. Her questions were answered.
[2021-05-22] MEDS: CLOPIDOGREL 75 MG TAB PO SCH (09:14)
[2021-05-22] MEDS: COLESEVELAM 625 MG TAB (WELCHOL) PO SCH ×2 (09:14→18:00)
[2021-05-22] MEDS: ESCITALOPRAM OXALATE 10 MG TAB (LEXAPRO) PO SCH (09:14)
[2021-05-22] MEDS: ROSUVASTATIN 10 MG TAB (CRESTOR) PO SCH (09:14)
[2021-05-22] MEDS: METOCLOPRAMIDE 5 MG TAB PO SCH ×2 (09:15→20:28)
[2021-05-22] MEDS: ASPIRIN 81MG ENTERIC TABLET PO SCH (09:15)
[2021-05-22] MEDS: CYANOCOBALAMIN 500 MCG TAB PO SCH (09:15)
[2021-05-22] MEDS: SPIRONOLACTONE 25 MG TAB PO SCH (09:15)
[2021-05-22] MEDS: SUCRALFATE 1 GM TAB PO SCH ×2 (09:15→20:31)
[2021-05-22] MEDS: PANTOPRAZOLE 40MG TAB (PROTONIX) PO SCH (09:15)
[2021-05-22] MEDS: ACETAMINOPHEN 650MG ER TAB (TYLENOL ARTHRITIS) PO SCH ×2 (09:15→20:28)
[2021-05-22] MEDS: DOCUSATE SODIUM 100MG CAPSULE PO SCH (09:15)
[2021-05-22] MEDS: IRON SUCROSE 200 MG in NS 100 ML IV SCH (09:17)
[2021-05-22] MEDS: NYSTATIN 100,000 UNITS/GM TOPICAL PWD 15 GM TOP SCH ×2 (09:17→20:31)
--- NOTE | 2021-05-22 12:34 | IPNPDOC ---
Subjective CC/HPI The patient is a 70-year-old female admitted with a reason for visit of Right Eschemic Toes. Events since last encounter Pt was seen today MA at bedside. She is NPO for Rt foot surgery today. No labs available from today. She c/o mild edema and reports that she takes Torsemide 10 mg bid at home. General: Denies: Chills, Night Sweats Constitutional: Denies: Chills, Fever Eyes: Denies: Pain, Vision change ENT: Denies: Head Aches, Ear Pain Skin: Reports: Lesions (Rt 4,5 toe gangrene) Pulmonary: Reports: Dyspnea (On walking to bathroom); Denies: Cough Cardiovascular: Denies: Chest Pain, Palpitations Gastrointestinal: Denies: Nausea, Vomiting Genitourinary: Denies: Dysuria, Frequency Hematologic: Denies: Bruising, Bleeding Excessively Musculoskeletal: Reports: Other Symptoms (Rt foot gangrene); Denies: Neck Pain, Back Pain Neurological: Denies: Weakness, Numbness Psych: Reports: Mood Normal Objective Physical Examination General Exam: Alert, No Acute Distress EYE EXAM: PERRLA, Conjunctiva & lids normal, EOMI ENT EXAM: Atraumatic, Mucous membr. moist/pink Neck Exam: Supple, JVD (mild) Chest Exam: Normal air movement, Rales (at bases) Heart Exam: Rate Normal, Irregular Rhythm (Afib), Other (JVD noted); No: Murmurs, Rubs ABDOMEN EXAM: Normal bowel sounds, Soft; No: Tenderness Extremity Exam: Other (Rt 4th and 5 toe gangrene); No: Clubbing Skin Exam: Nl turgor and temperature, Breakdown (Rt 4,5 toes gangrene as mentioned above) Neuro Exam: Normal Speech, Strength at 5/5 X4 ext Psych Exam: Mental status NL, Mood NL Vital Signs/I&O Vital Signs Date Time Temp Pulse Resp B/P (MAP) Pulse Ox O2 Delivery O2 Flow Rate FiO2 05/22/21 09:16 85 135/66 05/22/21 06:00 97.8 20 94 Room Air 05/18/21 12:26 2.0 I&O- Last 24 Hours up to 6 AM 05/22/21 06:00 Intake Total 770 ml Balance 770 ml Current Medications Current Medications Medications (Trade) Dose Ordered Sig/Tariq Route PRN Reason Start Time Stop Time Status Last Admin Dose Admin Acetaminophen (Tylenol Arthritis Er) 1,300 mg BID PO 05/16/21 21:00 05/22/21 09:15 Apixaban (Eliquis) 5 mg BID PO 05/16/21 21:00 05/17/21 17:23 DC 05/17/21 10:25 Aspirin (Ecotrin) 81 mg DAILY PO 05/17/21 09:00 05/22/21 09:15 Bisoprolol Fumarate (Zebeta) 5 mg DAILY PO 05/17/21 09:00 05/20/21 11:28 DC 05/20/21 08:19 Clopidogrel Bisulfate (PLAVix) 75 mg DAILY PO 05/19/21 09:00 05/22/21 09:14 Clopidogrel Bisulfate (PLAVix) 300 mg STAT STAT PO 05/18/21 13:07 05/18/21 13:08 Cancel Clopidogrel Bisulfate (PLAVix) 300 mg STAT STAT PO 05/18/21 13:12 05/18/21 13:13 DC 05/18/21 13:19 Colchicine (Colcrys) 0.3 mg DAILY PO 05/17/21 09:00 05/19/21 10:14 DC 05/19/21 08:44 Colesevelam HCl (WelChoL) 625 mg BIDWM PO 05/17/21 08:00 05/22/21 09:14 Cyanocobalamin (Vitamin B12) 500 mcg DAILY PO 05/17/21 09:00 05/22/21 09:15 Diltiazem HCl (Cardizem) 15 mg BID PO 05/20/21 21:00 05/22/21 09:16 Diltiazem HCl (Cardizem) 30 mg BID PO 05/16/21 21:00 05/20/21 14:38 DC 05/20/21 08:18 Docusate Sodium (Colace) 100 mg DAILY PO 05/17/21 09:00 05/22/21 09:15 Escitalopram Oxalate (Lexapro) 10 mg DAILY PO 05/17/21 09:00 05/22/21 09:14 Ferrous Sulfate (Ferrous Sulfate) 650 mg Q48H PO 05/17/21 21:00 05/17/21 01:12 DC Gabapentin (Neurontin) 300 mg QHS PO 05/17/21 00:00 05/21/21 20:04 Heparin Sodium (Porcine) (Heparin) 5,000 units Q12H SQ 05/19/21 09:00 Hold 05/21/21 09:12 Home Med (Home Med List Complete!) ASDIRECTED XX 05/16/21 23:25 05/16/21 23:22 DC Hydralazine HCl (Apresoline) 10 mg Q6H PRN IV SEE DOSE INSTRUCTIONS 05/18/21 08:40 05/18/21 12:00 DC Iron 200 mg/ Sodium Chloride 110 ml @ 110 mls/hr DAILY IV 05/20/21 16:00 05/23/21 09:59 05/22/21 09:17 Losartan Potassium (Cozaar) 50 mg DAILY PO 05/17/21 09:00 05/17/21 16:53 DC 05/17/21 10:23 Losartan Potassium (Cozaar) 50 mg DAILY PO 05/19/21 09:00 05/18/21 09:01 DC Metoclopramide HCl (Reglan) 5 mg BID PO 05/16/21 21:00 05/22/21 09:15 Miscellaneous (Unresolved Clarification Entry) SEE LABEL COMMENTS UNRESOLVED XX 05/17/21 00:01 05/16/21 18:35 DC Nystatin (Mycostatin Powder, Nystop) apply between excoria... BID TOP 05/19/21 21:00 05/22/21 09:17 Pantoprazole Sodium (Protonix) 40 mg DAILY PO 05/17/21 09:00 05/22/21 09:15 Piperacillin Sod/ Tazobactam Sod 3.375 gm/Dextrose 50 ml @ 50 mls/hr Q6H IV 05/16/21 18:00 05/22/21 11:46 Potassium Chloride/Dextrose 1,000 ml @ 70 mls/hr [id number] IV 05/20/21 13:45 05/21/21 04:02 DC 05/20/21 16:09 Potassium Chloride (Micro-K Extencaps) 10 meq BID PO 05/17/21 09:00 05/18/21 20:37 DC 05/18/21 14:03 Rosuvastatin Calcium (Crestor) 20 mg DAILY PO 05/17/21 09:00 05/22/21 09:14 Sodium Chloride 1,000 ml @ 50 mls/hr Q20H IV 05/18/21 00:05 05/18/21 08:27 DC 05/18/21 08:07 Sodium Chloride 1,000 ml @ 100 mls/hr Q10H IV 05/18/21 09:25 05/19/21 07:47 DC 05/19/21 05:49 Spironolactone (Aldactone) 25 mg DAILY PO 05/17/21 09:00 05/17/21 16:53 DC 05/17/21 10:25 Spironolactone (Aldactone) 25 mg DAILY PO 05/19/21 09:00 05/18/21 09:01 DC Spironolactone (Aldactone) 25 mg QAM PO 05/20/21 13:45 05/22/21 09:15 Sucralfate (Carafate) 1 gm BID PO 05/16/21 21:00 05/22/21 09:15 Torsemide (Demadex) 10 mg BID@0900,1700 PO 05/16/21 17:00 05/18/21 09:01 DC 05/17/21 18:22 Torsemide (Demadex) 20 mg QAM PO 05/23/21 09:00 Allergies Coded Allergies: Sulfa (Sulfonamide Antibiotics) (Verified Allergy, Severe, anaphylaxis, rash, 04/30/19) neomycin (Verified Allergy, Intermediate, rash, 04/30/19) ramipril (Verified Adverse Reaction, Intermediate, cough, 04/30/19) Assessment/Plan Date Seen The patient was seen on 05/22/21 in AM. Plan / VTE VTE Prophylaxis Ordered?: Yes Plan Orders past 48 Hours Orders Iron Sucrose (Venofer) (05/20/21 16:00) Kcl 20meq In D5w 1000ml (Kcl 20meq In D5 (05/20/21 13:45) Spironolactone (Aldactone) (05/20/21 13:45) Diltiazem (Cardizem) (05/20/21 21:00) Pill Cutter (Pill Cutter) (05/20/21 14:45) Magnesium Level (05/21/21 07:09) Phosphorous Level (05/21/21 07:09) Npo Diet For Test/Procedure (05/22/21 Dinner) Early Tray (05/22/21 06:00) Furosemide Injection (Lasix Injection) (05/22/21 16:00) Torsemide (Demadex) (05/23/21 09:00) Plan Text 1. Chronic kidney disease stage 3B: ARB and diuretic stopped. Cr 1.7 yesterday. Diuretic being started for edema. 2. HFpEF: LVEF~70% in 2020. Pt with early signs of fluid overload. she is already on clay. Started Torsemide tomorrow AM. Given Lasix in the evening. Pt is NPO for procedure now. 3. Hypertension: Controlled with diltiazem. 4. Atrial fibrillation: Ventricular rate is well controlled with calcium channel chivo. She has been on chronic anticoagulation with Eliquis. 5. Iron def Anemia: Currently on venofer. 6. Right foot ischemia with 4th and 5th gangrenous toes: Peripheral vascular disease on Rt leg angiogram. Cont Zosyn. Pt going for Rt 4th and 5t h toe amputation. 7.Hypokalemia: Oral Kcl and spironolactone. GASPER CHUNG MD May 22, 2021 12:34
[2021-05-22 13:18] LABS: HEMATOCRIT 26.8 % (36.0-47.0); HEMOGLOBIN 8.5 g/dl (12.0-15.5); MEAN CORPUSCULAR HEMOGLOBIN 30.2 pg (27.0-33.0); MEAN CORPUSCULAR HGB CONC 31.7 g/dl (32.0-36.5); MEAN CORPUSCULAR VOLUME 95.4 fl (80.0-96.0); PLATELET COUNT, AUTOMATED 158 10^3/uL (150-450); RED BLOOD COUNT 2.81 10^6/uL (4.00-5.40); WHITE BLOOD COUNT 9.5 10^3/uL (4.0-10.0)
[2021-05-22 13:53] LABS: ALBUMIN 1.9 GM/DL (3.2-5.2); BILIRUBIN,TOTAL 0.3 MG/DL (0.2-1.0); CALCIUM LEVEL 8.4 MG/DL (8.8-10.2); CREATININE FOR GFR 1.5 MG/DL (0.55-1.30); GLOMERULAR FILTRATION RATE 36.7 (>45); POTASSIUM SERUM 4.1 MEQ/L (3.5-5.1); TOTAL PROTEIN 4.9 GM/DL (6.4-8.2)
[2021-05-22 14:00] VITALS: BP 121/66
--- NOTE | 2021-05-22 14:04 | IPNPDOC ---
Text Note Date of Service The patient was seen on 05/22/21. NOTE SUBJECTIVE: -No acute complaints. NPO ending podiatry surgery this afternoon OBJECTIVE: VS: Please see below CONSTITUTIONAL: No acute distress, AAO x 3 EYES: PERRLA, EOM intact HENT, MOUTH: Normocephalic, atraumatic, moist mucous membranes NECK: SUPPLE, no JVD, no lymphadenopathy, no carotid bruit CV: Regular rate and rhythm, S1S2 normal, no murmurs/rubs/gallops RESPIRATORY: Crackles in post lung ocampo-minimal. no rales/rhonchi/wheezes GI: BS positive in 4 quadrants, soft, nontender, nondistended, no rebound or guarding, no organomegaly EXT: +1-2 pitting lower extremity edema, necrotic 4th and 5th R toes INTEGUMENTARY: 6 cm necrotic wounds over the right lower extremity Achilles tendon area of leg, black and and cold fourth and fifth digit of the right foot. decreased reddened area around the fourth and fifth right foot digits; however, not warm to touch. Several crusted wounds anteriorly of the right and. There is a 3 cm wound of the left anterior alvarado. no rashes. Left groin area tender where angiogram occurred but no active bleeding or surrounding erythema. NEUROLOGIC: Cranial Nerves II-XII are intact. Decreased sensation to fine and dull touch in the fourth and fifth digit of the right foot PSYCHIATRIC: Mood and affect are normal LABORATORY DATA: Reviewed Please see below MICRO: BCx: NG IMAGING: Right foot MRI: 1. Soft tissue swelling through the foot including the flexor and extensor muscles. 2. Focal soft tissue swelling 3rd 4th and 5th digits with no evidence of osteomyelitis. B/l lower ext arterial US: Moderate to severe plaque was seen bilaterally but right greater than left. A stenosis was seen at the right popliteal artery stenosis was also seen at the left popliteal artery proximally the distal posterior tibial artery was seen to be occluded. The examination was somewhat limited due to patient motion and plaque formation. Carotid US: 50-69 % category narrowing in the right internal carotid artery by Doppler velocity criteria. Right CCA and ICA velocities are decreased compared to the prior study. Less than 50% category narrowing in the left ICA by Doppler velocity criteria. Left CCA and ICA velocities are decreased compared to the prior study. RLE angiogram: See notes ASSESSMENT: 69 y/o F with extensive past medical history above admitted for right foot 4th and 5th digit ischemia, gangrene and cellulitis. PLAN: #Gangrene of the right fourth and the fifth toes, associated with multilevel severe peripheral arterial disease. S/p trauma several weeks ago -Right lower ext arteriogram with findings significant for PAD -C/w plavix, ASA -Vascular surgery following, s/p right SFA stenting, and popliteal artery and posterior tibial artery balloon angioplasty on 05/18/2021. -Podiatry consulted pending amputation of digits by Dr. Kahn today #Bradycardia- resolved -holding BB currently, CCB dose decreased and holding parameters placed -Tele #RLE cellulitis-improved in area around gangrenous toes -Zosyn, renally dosed #CKD stage III B -Cr baseline -s/p IVF -F/u labs -Nephrology following #Chronic iron deficiency anemia likely 2/2 to slow (possibly chronic from history) GI bleed, on eliquis and ASA at home -Hx of duodenal ulcer/gastric pouch ulceration/hx of upper GI bleed, esophagitis with metaplasia -H/H near baseline -Low iron history with iron supplement every other day -Discussed in detail with Dr. Ortiz (Cardiology) on prior admission who is cautious to take patient off Eliquis due to severe pulmonary arterial HTN, CHF, bioprosthetic valve and atrial fibrillation. -Also on prior admission Dr. Shea (general surgery) suggested o/p upper and lower scope but not done. If worsens, can consult. -Hx of needing transfusions, on venofer per nephro -F/u CBC daily, c/w home meds. #Afib, chronic -rate controlled -Holding eliquis for amputation, rate controlling meds above #HFpEF without exacerbation -Stable, asymptomatic. -D/c BB, decreased with holding parameters on CCB -Tele, I&O's, daily wt #Hyperlipidemia. -C/w Crestor. #COPD, not currently in exacerbation -C/w home meds #DM type II -C/w levemir HS, ISS, AC/HS FS, consistent carb diet, post surgery, currently NPO #HTN -continue CCB #DAVIDSON -Can use home Bipap #Hx of GERD, PUD -C/w sucralfate, PPI BID #DVT px -holding heparin and also holding her eliquis Resolved issues: #Hypokalemia DISPOSITION: Vascular and nephrology consulted, f/u recommendations. Amputation of on necrotic digits due today. VS,Sarojbone, I+O VS, Sarojbone, I+O Laboratory Tests 05/22/21 12:22 Vital Signs Date Time Temp Pulse Resp B/P (MAP) Pulse Ox O2 Delivery O2 Flow Rate FiO2 05/22/21 09:16 85 135/66 05/22/21 06:00 97.8 20 94 Room Air 05/18/21 12:26 2.0 I&O- Last 24 Hours up to 6 AM 05/22/21 06:00 Intake Total 770 ml Balance 770 ml JOHN VALENCIA MD May 22, 2021 14:04
[2021-05-22] MEDS ORDERED: BUPIVACAINE HCL 0.5% 30 ML VIAL As Ordered ONE (14:59)
[2021-05-22] MEDS ORDERED: LIDOCAINE 2% MDV 20ML VIAL As Ordered ONE (14:59)
[2021-05-22] MEDS ORDERED: FUROSEMIDE 20MG/2ML VIAL (J1940) IV ONE (16:00)
[2021-05-22 16:27] VITALS: BP 157/81
[2021-05-22] MEDS ORDERED: MIDAZOLAM INJ 2MG/2ML VIAL (J2250 PER 1MG) As Ordered ONE (16:51)
[2021-05-22] MEDS ORDERED: LIDOCAINE 2% 100MG/5ML SDV (FOR ANES.) As Ordered ONE (16:51)
[2021-05-22] MEDS ORDERED: propofoL 200 MG/20 ML VIAL As Ordered ONE ×2 (16:51→18:01)
[2021-05-22] MEDS ORDERED: ONDANSETRON 4MG/2ML VIAL As Ordered ONE (16:52)
[2021-05-22] MEDS ORDERED: dexameTHASONE 4 MG/ML 1ML VIAL (J1100 PER 1MG) As Ordered ONE (16:52)
[2021-05-22] MEDS ORDERED: fentaNYL 100 MCG/2 ML INJECTION (J3010) As Ordered ONE (16:52)
[2021-05-22] MEDS ORDERED: GENTAMICIN SULF 80MG/2ML VIAL As Ordered ONE ×2 (16:53→16:54)
[2021-05-22] MEDS ORDERED: ceFAZolin 1GM VIAL (J0690 PER 500MG) As Ordered ONE (17:31)
[2021-05-22] MEDS ORDERED: ZOSYN 3.375GM VIAL (J2543) As Ordered ONE (17:51)
--- NOTE | 2021-05-22 18:48 | REP ---
INDICATION: s/p 4,5 ray amputation COMPARISON: None. TECHNIQUE: Portable AP, lateral, oblique views of the right foot FINDINGS: Baseline examination demonstrates the patient to be status post amputation through the 4th and 5th metatarsal diaphyses. Remainder of the osseous structures demonstrate age-related degenerative changes. IMPRESSION: Status post amputation through the mid 4th and 5th metatarsal diaphyses. <Electronically signed by Lyo Juarez > 05/22/21 [id number]
[2021-05-22] MEDS ORDERED: ONDANSETRON 4MG/2ML VIAL IV PRN (18:50)
[2021-05-22] MEDS ORDERED: fentaNYL 100 MCG/2 ML INJECTION (J3010) IV PRN (18:50)
[2021-05-22 19:15] VITALS: BP 144/57
[2021-05-22] MEDS: GABAPENTIN 300 MG CAP PO SCH (20:31)
[2021-05-22 22:00] VITALS: BP 144/59
[2021-05-22] MEDS ORDERED: oxyCODONE 5MG TAB PO PRN (22:40)
[2021-05-23] MEDS: oxyCODONE 5MG TAB PO PRN ×2 (05:09→13:44)
[2021-05-23] MEDS: PIPERACILLIN/TAZOBACTAM SOD 3.375 GM in D5W MINI-BAG PLUS 50 ML IV SCH ×3 (05:10→18:23)
[2021-05-23 06:00] VITALS: BP 141/60
--- NOTE | 2021-05-23 07:57 | RO ---
OPERATIVE NOTE DATE OF OPERATION: 05/22/2021 PREOPERATIVE DIAGNOSIS: Dry gangrene 4th and 5th toes right foot, stage 4 ulceration posterior right ankle. POSTOPERATIVE DIAGNOSIS: Dry gangrene 4th and 5th toes right foot, stage 4 ulceration posterior right ankle. PROCEDURES PERFORMED: 4th and 5th ray amputations right foot; excisional debridement to muscle stage 4 ulceration right foot. SURGEON: Donn Kahn DPM CO[employer]EE URN ATTENDANT: None. IRRIGATION: Dilute Ancef solution with low pressure pulse lavage system, 3 liters. HEMOSTASIS: None. COMPLICATIONS: None. ESTIMATED BLOOD LOSS: 10 mL. ANESTHESIA: Local MAC DESCRIPTION OF PROCEDURE: On 05/22/2021 this 70-year-old white female was taken from her hospital room to the operating room and placed on the operating table in supine position. Following the induction of IV sedation and local regional anesthesia the right lower extremity was prepped and draped in usual aseptic manner. Attention was directed to the patient's right foot. There was noted to be an area of dry gangrene encompassing the 4th and 5th toes. At this time 2 cm elliptical incisions were placed around the ulcer site. The ellipse extended further onto the lateral surface of the foot. Dissection was carried straight to bone. The 4th and 5th toes were disarticulated and then attention was directed to the metatarsal shafts of the 4th and 5th metatarsals. Utilizing sagittal saw an osteotome was performed through the 4th and 5th metatarsals with more bone being taken on the lateral margin as well as the plantar surface. The bone was then removed from the wound. All bleeders as encountered were electrocoagulated. 3 liters of dilute Ancef was then used with low pressure pulse lavage system to irrigate the wound. Aerobic and anaerobic cultures were taken from the proximal phalanx of the 5th toe. Antibiotics may be tailored according to culture and sensitivity. The wound was then closed with 3-0 nylon suture in simple interrupted type fashion. Attention was directed to the posterior aspect of the leg where there was noted to be an ulceration measuring approximately 8 cm x 3 cm prior to debridement. Utilizing Montoya dermal curet excisional debridement was made to the tendon and muscular structures of the Achilles tendon. Sterile dressing was applied consisting of Xeroform gauze followed by Adaptic, 4 x 4s and 4 x 4 splints. The patient tolerated the surgical procedure well and was taken from the OR to the recovery room for further monitoring by the anesthesia department. Postop instructions given upon discharge. Post-debridement of the ulcer was 8 cm x 3.1 cm. MTDD
[2021-05-23] MEDS: DOCUSATE SODIUM 100MG CAPSULE PO SCH (09:00)
[2021-05-23 10:43] LABS: BASO % 0.2 % (0.0-1.0); HEMATOCRIT 31.1 % (36.0-47.0); HEMOGLOBIN 9.5 g/dl (12.0-15.5); LYMPH # 0.8 10^3/uL (1.5-5.0); LYMPH % 6.1 % (24.0-44.0); MEAN CORPUSCULAR HEMOGLOBIN 29.9 pg (27.0-33.0); MEAN CORPUSCULAR HGB CONC 30.5 g/dl (32.0-36.5); MEAN CORPUSCULAR VOLUME 97.8 fl (80.0-96.0); MONO # 0.6 10^3/uL (0.0-0.8); MONO % 4.8 % (2.0-8.0); NEUTROPHILS # 11.1 10^3/uL (1.5-8.5); NEUTROPHILS % 87.3 % (36.0-66.0); PLATELET COUNT, AUTOMATED 199 10^3/uL (150-450); RED BLOOD COUNT 3.18 10^6/uL (4.00-5.40); WHITE BLOOD COUNT 12.7 10^3/uL (4.0-10.0)
[2021-05-23] MEDS: METOCLOPRAMIDE 5 MG TAB PO SCH ×2 (10:47→20:34)
[2021-05-23] MEDS: ASPIRIN 81MG ENTERIC TABLET PO SCH (10:47)
[2021-05-23] MEDS: TORSEMIDE 20 MG TAB PO SCH (10:47)
[2021-05-23] MEDS: ESCITALOPRAM OXALATE 10 MG TAB (LEXAPRO) PO SCH (10:47)
[2021-05-23] MEDS: PANTOPRAZOLE 40MG TAB (PROTONIX) PO SCH (10:47)
[2021-05-23] MEDS: CLOPIDOGREL 75 MG TAB PO SCH (10:47)
[2021-05-23] MEDS: CYANOCOBALAMIN 500 MCG TAB PO SCH (10:47)
[2021-05-23] MEDS: ACETAMINOPHEN 650MG ER TAB (TYLENOL ARTHRITIS) PO SCH ×2 (10:48→20:34)
[2021-05-23] MEDS: SUCRALFATE 1 GM TAB PO SCH ×2 (10:48→20:29)
[2021-05-23] MEDS: IRON SUCROSE 200 MG in NS 100 ML IV SCH (10:49)
[2021-05-23] MEDS: ROSUVASTATIN 10 MG TAB (CRESTOR) PO SCH (10:49)
[2021-05-23] MEDS: SPIRONOLACTONE 25 MG TAB PO SCH (10:49)
[2021-05-23] MEDS: NYSTATIN 100,000 UNITS/GM TOPICAL PWD 15 GM TOP SCH ×2 (10:50→20:39)
[2021-05-23 11:04] LABS: ALBUMIN 2.3 GM/DL (3.2-5.2); CALCIUM LEVEL 8.8 MG/DL (8.8-10.2); CREATININE FOR GFR 1.58 MG/DL (0.55-1.30); GLOMERULAR FILTRATION RATE 34.5 (>45); PHOSPHORUS LEVEL 4.2 MG/DL (2.5-4.9); POTASSIUM SERUM 4.8 MEQ/L (3.5-5.1)
[2021-05-23] MEDS: COLESEVELAM 625 MG TAB (WELCHOL) PO SCH ×2 (11:11→18:22)
[2021-05-23] MEDS: HEPARIN SOD (PORCINE) 5000UNITS/ML 1ML VIAL/SYRINGE SQ SCH ×2 (11:12→20:35)
--- NOTE | 2021-05-23 12:49 | IPNPDOC ---
Subjective CC/HPI The patient is a 70-year-old female admitted with a reason for visit of Right Eschemic Toes. Events since last encounter Pt reports pain Rt foot. s/p amputation of Rt 4th and 5th toes due to gangrene. she was given Lasix yesterday and started on torsemide 20 mg daily. Renal function stable with Cr 1.5-->1.58. General: Denies: Chills, Night Sweats Constitutional: Denies: Chills, Fever Eyes: Denies: Pain, Vision change ENT: Denies: Ear Pain Skin: Reports: Lesions Pulmonary: Denies: Dyspnea, Cough Cardiovascular: Denies: Chest Pain, Palpitations Gastrointestinal: Denies: Nausea, Vomiting Genitourinary: Denies: Dysuria, Frequency Hematologic: Denies: Bruising Musculoskeletal: Reports: Foot Pain (Rt); Denies: Neck Pain, Back Pain Neurological: Reports: Weakness; Denies: Numbness Psych: Reports: Mood Normal Objective Physical Examination General Exam: Alert, No Acute Distress EYE EXAM: PERRLA, Conjunctiva & lids normal, EOMI ENT EXAM: Atraumatic, Mucous membr. moist/pink Neck Exam: Supple, JVD (mild) Chest Exam: Normal air movement, Rales (at bases) Heart Exam: Rate Normal, Irregular Rhythm (Afib), Other (JVD noted); No: Murmurs, Rubs ABDOMEN EXAM: Normal bowel sounds, Soft; No: Tenderness Extremity Exam: Other (Rt 4th and 5 toe amputated. Dressing on); No: Clubbing Skin Exam: Nl turgor and temperature Neuro Exam: Normal Speech, Strength at 5/5 X4 ext Psych Exam: Mental status NL, Mood NL Vital Signs/I&O Vital Signs Date Time Temp Pulse Resp B/P (MAP) Pulse Ox O2 Delivery O2 Flow Rate FiO2 05/23/21 10:56 80 139/60 05/23/21 06:00 97.8 13 97 Room Air 05/18/21 12:26 2.0 I&O- Last 24 Hours up to 6 AM 05/23/21 06:00 Intake Total 635 ml Balance 635 ml Laboratory Data Labs 24H Laboratory Tests 2 05/22/21 18:31: Bedside Glucose (Misc Panel) 97 05/23/21 10:29: Immature Granulocyte % (Auto) 1.6, Neutrophils (%) (Auto) 87.3H, Lymphocytes (%) (Auto) 6.1L, Monocytes (%) (Auto) 4.8, Eosinophils (%) (Auto) 0.0, Basophils (%) (Auto) 0.2, Neutrophils # (Auto) 11.1H, Lymphocytes # (Auto) 0.8L, Monocytes # (Auto) 0.6, Eosinophils # (Auto) 0.0, Basophils # (Auto) 0.0, Nucleated Red Blood Cells % (auto) 0.3H, Anion Gap 9, Glomerular Filtration Rate 34.5L, Calcium Level 8.8, Phosphorus Level 4.2#, Albumin 2.3#L CBC/BMP Laboratory Tests 05/23/21 10:29 FSBS Laboratory Tests Test 05/22/21 18:31 Range/Units Bedside Glucose (Misc Panel) 97 80-115 MG/DL Current Medications Current Medications Medications (Trade) Dose Ordered Sig/Tariq Route PRN Reason Start Time Stop Time Status Last Admin Dose Admin Acetaminophen (Tylenol Arthritis Er) 1,300 mg BID PO 05/16/21 21:00 05/23/21 10:48 Apixaban (Eliquis) 5 mg BID PO 05/16/21 21:00 05/17/21 17:23 DC 05/17/21 10:25 Aspirin (Ecotrin) 81 mg DAILY PO 05/17/21 09:00 05/23/21 10:47 Bisoprolol Fumarate (Zebeta) 5 mg DAILY PO 05/17/21 09:00 05/20/21 11:28 DC 05/20/21 08:19 Clopidogrel Bisulfate (PLAVix) 75 mg DAILY PO 05/19/21 09:00 05/23/21 10:47 Clopidogrel Bisulfate (PLAVix) 300 mg STAT STAT PO 05/18/21 13:07 05/18/21 13:08 Cancel Clopidogrel Bisulfate (PLAVix) 300 mg STAT STAT PO 05/18/21 13:12 05/18/21 13:13 DC 05/18/21 13:19 Colchicine (Colcrys) 0.3 mg DAILY PO 05/17/21 09:00 05/19/21 10:14 DC 05/19/21 08:44 Colesevelam HCl (WelChoL) 625 mg BIDWM PO 05/17/21 08:00 05/23/21 11:11 Cyanocobalamin (Vitamin B12) 500 mcg DAILY PO 05/17/21 09:00 05/23/21 10:47 Diltiazem HCl (Cardizem) 15 mg BID PO 05/20/21 21:00 05/23/21 10:56 Diltiazem HCl (Cardizem) 30 mg BID PO 05/16/21 21:00 05/20/21 14:38 DC 05/20/21 08:18 Docusate Sodium (Colace) 100 mg DAILY PO 05/17/21 09:00 05/22/21 09:15 Escitalopram Oxalate (Lexapro) 10 mg DAILY PO 05/17/21 09:00 05/23/21 10:47 Fentanyl Citrate (Sublimaze) 25 mcg Q5MP PRN IV PAIN LEVEL 8-10 05/22/21 18:50 05/22/21 20:50 DC Ferrous Sulfate (Ferrous Sulfate) 650 mg Q48H PO 05/17/21 21:00 05/17/21 01:12 DC Gabapentin (Neurontin) 300 mg QHS PO 05/17/21 00:00 05/22/21 20:31 Heparin Sodium (Porcine) (Heparin) 5,000 units Q12H SQ 05/19/21 09:00 05/23/21 11:12 Home Med (Home Med List Complete!) ASDIRECTED XX 05/16/21 23:25 05/16/21 23:22 DC Hydralazine HCl (Apresoline) 10 mg Q6H PRN IV SEE DOSE INSTRUCTIONS 05/18/21 08:40 05/18/21 12:00 DC Iron 200 mg/ Sodium Chloride 110 ml @ 110 mls/hr DAILY IV 05/20/21 16:00 05/23/21 09:59 DC 05/23/21 10:49 Losartan Potassium (Cozaar) 50 mg DAILY PO 05/17/21 09:00 05/17/21 16:53 DC 05/17/21 10:23 Losartan Potassium (Cozaar) 50 mg DAILY PO 05/19/21 09:00 05/18/21 09:01 DC Metoclopramide HCl (Reglan) 5 mg BID PO 05/16/21 21:00 05/23/21 10:47 Miscellaneous (Unresolved Clarification Entry) SEE LABEL COMMENTS UNRESOLVED XX 05/17/21 00:01 05/16/21 18:35 DC Nystatin (Mycostatin Powder, Nystop) apply between excoria... BID TOP 05/19/21 21:00 05/23/21 10:50 Ondansetron HCl (ZOFRAN INJection) 4 mg Q4HP PRN IV NAUSEA OR VOMITING 05/22/21 18:50 05/22/21 20:50 DC Oxycodone HCl (Roxicodone, Oxyir) 5 mg Q8HP PRN PO MODERATE PAIN (PS 5-7) 05/22/21 22:40 05/22/21 23:10 Oxycodone HCl (Roxicodone, Oxyir) 10 mg Q8HP PRN PO SEVERE PAIN (PS 8-10) 05/23/21 03:55 05/23/21 05:09 Pantoprazole Sodium (Protonix) 40 mg DAILY PO 05/17/21 09:00 05/23/21 10:47 Piperacillin Sod/ Tazobactam Sod 3.375 gm/Dextrose 50 ml @ 50 mls/hr Q6H IV 05/16/21 18:00 05/23/21 05:10 Potassium Chloride/Dextrose 1,000 ml @ 70 mls/hr [id number] IV 05/20/21 13:45 05/21/21 04:02 DC 05/20/21 16:09 Potassium Chloride (Micro-K Extencaps) 10 meq BID PO 05/17/21 09:00 05/18/21 20:37 DC 05/18/21 14:03 Rosuvastatin Calcium (Crestor) 20 mg DAILY PO 05/17/21 09:00 05/23/21 10:49 Sodium Chloride 1,000 ml @ 50 mls/hr Q20H IV 05/18/21 00:05 05/18/21 08:27 DC 05/18/21 08:07 Sodium Chloride 1,000 ml @ 100 mls/hr Q10H IV 05/18/21 09:25 05/19/21 07:47 DC 05/19/21 05:49 Spironolactone (Aldactone) 25 mg DAILY PO 05/17/21 09:00 05/17/21 16:53 DC 05/17/21 10:25 Spironolactone (Aldactone) 25 mg DAILY PO 05/19/21 09:00 05/18/21 09:01 DC Spironolactone (Aldactone) 25 mg QAM PO 05/20/21 13:45 05/23/21 10:49 Sucralfate (Carafate) 1 gm BID PO 05/16/21 21:00 05/23/21 10:48 Torsemide (Demadex) 10 mg BID@0900,1700 PO 05/16/21 17:00 05/18/21 09:01 DC 05/17/21 18:22 Torsemide (Demadex) 20 mg QAM PO 05/23/21 09:00 05/23/21 10:47 Allergies Coded Allergies: Sulfa (Sulfonamide Antibiotics) (Verified Allergy, Severe, anaphylaxis, rash, 04/30/19) neomycin (Verified Allergy, Intermediate, rash, 04/30/19) ramipril (Verified Adverse Reaction, Intermediate, cough, 04/30/19) Assessment/Plan Date Seen The patient was seen on 05/23/21 in AM. Plan / VTE VTE Prophylaxis Ordered?: Yes Plan Orders past 48 Hours Orders Early Tray (05/22/21 06:00) Furosemide Injection (Lasix Injection) (05/22/21 16:00) Torsemide (Demadex) (05/23/21 09:00) Pathology Request For Service (05/22/21 17:56) Anaerobic Culture (05/22/21 17:56) Wound Culture And Gram St (05/22/21 17:56) Foot, Complete (05/22/21 18:24) Fingerstick Blood Sugar (05/22/21 18:31) Fentanyl Citrate (Sublimaze) (05/22/21 18:50) Ondansetron Injection (Zofran Injection) (05/22/21 18:50) 2 Gram Sodium Diet (05/23/21 Breakfast) Dispense Surgical Shoe (05/22/21 19:25) * Nursing Order * (05/22/21 19:25) * Nursing Order * (05/22/21 19:25) Oxycodone Hcl (Roxicodone, Oxyir) (05/22/21 22:40) Oxycodone Hcl (Roxicodone, Oxyir) (05/23/21 03:55) Cbc With Auto Diff (05/23/21 08:54) Renal Profile (05/23/21 08:54) Pt Eval & Tx As Needed (05/23/21 10:38) Ot Eval & Treat As Needed (05/23/21 10:38) Duplex Aorta/Iv/Iliac(C) (05/23/21 11:30) C Reactive Protein Quantitativ (05/24/21 06:00) C Reactive Protein Quantitativ (05/25/21 06:00) C Reactive Protein Quantitativ (05/26/21 06:00) Plan Text 1. Chronic kidney disease stage 3B: ARB and diuretic stopped. Cr 1.58 today. ok to cont the diuretic for now. 2. HFpEF: LVEF~70% in 2020. continue current dose of clay and torsemide for now. 3. Hypertension: Controlled with diltiazem. 4. Atrial fibrillation: Ventricular rate is well controlled with calcium channel chivo. She has been on chronic anticoagulation with Eliquis. 5. Iron def Anemia: s/p venofer. Hb improving. 6. Right foot ischemia with 4th and 5th gangrenous toes: Peripheral vascular disease on Rt leg angiogram. Cont Zosyn. s/p Rt 4th and 5th toe amputation. 7.Hypokalemia: Oral Kcl and spironolactone. GASPER CHUNG MD May 23, 2021 12:49
--- NOTE | 2021-05-23 14:38 | IPNPDOC ---
Text Note Date of Service The patient was seen on 05/23/21. NOTE SUBJECTIVE: -No acute complaints. -Tolerated surgery well, no complications, intraop cultures were sent OBJECTIVE: VS: Please see below CONSTITUTIONAL: No acute distress, AAO x 3 EYES: PERRLA, EOM intact HENT, MOUTH: Normocephalic, atraumatic, moist mucous membranes NECK: SUPPLE, no JVD, no lymphadenopathy, no carotid bruit CV: Regular rate and rhythm, S1S2 normal, no murmurs/rubs/gallops RESPIRATORY: Crackles in post lung ocampo-minimal. no rales/rhonchi/wheezes GI: BS positive in 4 quadrants, soft, nontender, nondistended, no rebound or guarding, no organomegaly EXT: +1-2 pitting lower extremity edema, necrotic 4th and 5th R toes INTEGUMENTARY: 6 cm necrotic wounds over the right lower extremity Achilles tendon area of leg, fourth and fifth digit of the right foot in c/d/i dressing post amputation. Several crusted wounds anteriorly of the right and. There is a 3 cm wound of the left anterior alvarado. no rashes. Left groin area nontender now where angiogram occurred without bleeding or surrounding erythema. NEUROLOGIC: Cranial Nerves II-XII are intact. Decreased sensation to fine and dull touch in the fourth and fifth digit of the right foot PSYCHIATRIC: Mood and affect are normal LABORATORY DATA: Reviewed Please see below MICRO: BCx: NG IMAGING: Right foot MRI: 1. Soft tissue swelling through the foot including the flexor and extensor muscles. 2. Focal soft tissue swelling 3rd 4th and 5th digits with no evidence of osteomyelitis. B/l lower ext arterial US: Moderate to severe plaque was seen bilaterally but right greater than left. A stenosis was seen at the right popliteal artery stenosis was also seen at the left popliteal artery proximally the distal posterior tibial artery was seen to be occluded. The examination was somewhat limited due to patient motion and plaque formation. Carotid US: 50-69 % category narrowing in the right internal carotid artery by Doppler velocity criteria. Right CCA and ICA velocities are decreased compared to the prior study. Less than 50% category narrowing in the left ICA by Doppler velocity criteria. Left CCA and ICA velocities are decreased compared to the prior study. RLE angiogram: See notes ASSESSMENT: 69 y/o F with extensive past medical history above admitted for right foot 4th and 5th digit ischemia, gangrene and cellulitis. PLAN: #Gangrene of the right fourth and the fifth toes, associated with multilevel severe peripheral arterial disease. S/p trauma several weeks ago -Right lower ext arteriogram with findings significant for PAD -C/w plavix, ASA -Vascular surgery following, s/p right SFA stenting, and popliteal artery and posterior tibial artery balloon angioplasty on 05/18/2021. -Had 4th and 5th R digits amputation by Dr. Kahn on 05/22 -f/u intraop cultures -for now continue piptazo #Bradycardia- resolved -holding BB currently, CCB dose decreased and holding parameters placed -Tele #RLE cellulitis-improved in area around gangrenous toes -Zosyn, renally dosed #CKD stage III B -Cr baseline -s/p IVF -F/u labs -Nephrology following #Chronic iron deficiency anemia likely 2/2 to slow (possibly chronic from history) GI bleed, on eliquis and ASA at home -Hx of duodenal ulcer/gastric pouch ulceration/hx of upper GI bleed, esophagitis with metaplasia -H/H near baseline -Low iron history with iron supplement every other day -Discussed in detail with Dr. Ortiz (Cardiology) on prior admission who is cautious to take patient off Eliquis due to severe pulmonary arterial HTN, CHF, bioprosthetic valve and atrial fibrillation. -Also on prior admission Dr. Shea (general surgery) suggested o/p upper and lower scope but not done. If worsens, can consult. -Hx of needing transfusions, on venofer per nephro -F/u CBC daily, c/w home meds. #Afib, chronic -rate controlled -Holding eliquis for amputation, rate controlling meds above #HFpEF without exacerbation -Stable, asymptomatic. -D/c BB, decreased with holding parameters on CCB -Tele, I&O's, daily wt #Hyperlipidemia. -C/w Crestor. #COPD, not currently in exacerbation -C/w home meds #DM type II -C/w levemir HS, ISS, AC/HS FS, consistent carb diet #HTN -continue CCB #DAVIDSON -Can use home Bipap #Hx of GERD, PUD -C/w sucralfate, PPI BID #DVT px -holding heparin and also holding her eliquis Resolved issues: #Hypokalemia DISPOSITION: Vascular, podiatry and nephrology consulted, f/u recommendations. VS,Fishbone, I+O VS, Fishbone, I+O Laboratory Tests 05/22/21 12:22 Vital Signs Date Time Temp Pulse Resp B/P (MAP) Pulse Ox O2 Delivery O2 Flow Rate FiO2 05/23/21 06:00 97.8 78 13 141/60 (87) 97 Room Air 05/18/21 12:26 2.0 I&O- Last 24 Hours up to 6 AM 05/23/21 06:00 Intake Total 635 ml Balance 635 ml JOHN VALENCIA MD May 23, 2021 10:42
[2021-05-23 15:30] VITALS: BP 133/62
--- NOTE | 2021-05-23 15:40 | REP ---
INDICATION: ? Right common iliac stenosis COMPARISON: None TECHNIQUE: Real time villalpando scale and color Doppler ultrasound examination using curved array transducer. FINDINGS: Evaluation is limited due to overlying bowel gas and body habitus. The distal aorta is not visualized. Right common iliac artery velocity: 80 cm/sec and triphasic Right external iliac artery velocity: 98.2 cm/sec and monophasic/triphasic Left common iliac artery velocity: 122 cm/sec and triphasic Left external iliac artery velocity: 97 cm/sec and triphasic IMPRESSION: 1. Evaluation is significantly limited due to body habitus and overlying bowel gas. No obvious visible stenosis is appreciated. If there is continued concern, MRA or CTA should be considered for further investigation. <Electronically signed by Loy Juarez > 05/23/21 [id number]
[2021-05-23] MEDS: GABAPENTIN 300 MG CAP PO SCH (20:34)
[2021-05-23 22:00] VITALS: BP 131/62
[2021-05-24] MEDS: PIPERACILLIN/TAZOBACTAM SOD 3.375 GM in D5W MINI-BAG PLUS 50 ML IV SCH ×4 (00:19→18:00)
[2021-05-24 06:00] VITALS: BP 124/59
[2021-05-24 07:50] LABS: C REACTIVE PROTEIN QUANTITATIV 3.29 MG/DL (0.00-0.30)
[2021-05-24 08:23] LABS: ALBUMIN 1.9 GM/DL (3.2-5.2); CALCIUM LEVEL 8.3 MG/DL (8.8-10.2); CREATININE FOR GFR 1.73 MG/DL (0.55-1.30); GLOMERULAR FILTRATION RATE 31.1 (>45); PHOSPHORUS LEVEL 3.6 MG/DL (2.5-4.9)
[2021-05-24] MEDS: DOCUSATE SODIUM 100MG CAPSULE PO SCH ×2 (09:00→09:29)
[2021-05-24] MEDS: ESCITALOPRAM OXALATE 10 MG TAB (LEXAPRO) PO SCH (09:29)
[2021-05-24] MEDS: COLESEVELAM 625 MG TAB (WELCHOL) PO SCH ×2 (09:29→18:00)
[2021-05-24] MEDS: ACETAMINOPHEN 650MG ER TAB (TYLENOL ARTHRITIS) PO SCH ×2 (09:29→20:30)
[2021-05-24] MEDS: SPIRONOLACTONE 25 MG TAB PO SCH (09:29)
[2021-05-24] MEDS: CLOPIDOGREL 75 MG TAB PO SCH (09:30)
[2021-05-24] MEDS: ROSUVASTATIN 10 MG TAB (CRESTOR) PO SCH (09:30)
[2021-05-24] MEDS: TORSEMIDE 20 MG TAB PO SCH (09:30)
[2021-05-24] MEDS: PANTOPRAZOLE 40MG TAB (PROTONIX) PO SCH (09:30)
[2021-05-24] MEDS: CYANOCOBALAMIN 500 MCG TAB PO SCH (09:30)
[2021-05-24] MEDS: METOCLOPRAMIDE 5 MG TAB PO SCH ×2 (09:30→20:30)
[2021-05-24] MEDS: ASPIRIN 81MG ENTERIC TABLET PO SCH (09:30)
[2021-05-24] MEDS: SUCRALFATE 1 GM TAB PO SCH ×2 (09:30→20:28)
[2021-05-24] MEDS: HEPARIN SOD (PORCINE) 5000UNITS/ML 1ML VIAL/SYRINGE SQ SCH ×2 (09:32→21:00)
[2021-05-24] MEDS: NYSTATIN 100,000 UNITS/GM TOPICAL PWD 15 GM TOP SCH (09:33)
[2021-05-24 10:45] LABS: HEMATOCRIT 26.3 % (36.0-47.0); MEAN CORPUSCULAR HEMOGLOBIN 29.9 pg (27.0-33.0); MEAN CORPUSCULAR HGB CONC 30.4 g/dl (32.0-36.5); MEAN CORPUSCULAR VOLUME 98.1 fl (80.0-96.0); PLATELET COUNT, AUTOMATED 183 10^3/uL (150-450); RED BLOOD COUNT 2.68 10^6/uL (4.00-5.40); WHITE BLOOD COUNT 9.1 10^3/uL (4.0-10.0)
[2021-05-24] MEDS ORDERED: OXYC-517 PO (11:23)
[2021-05-24] MEDS ORDERED: NYST10006 TOP (11:23)
[2021-05-24] MEDS ORDERED: DILT30TA PO (11:23)
[2021-05-24] MEDS ORDERED: LEVO750T13 PO (11:23)
[2021-05-24 13:50] VITALS: BP 130/60
--- NOTE | 2021-05-24 18:15 | DS.PDOC ---
Discharge Summary General Date of Admission May 16, 2021 at 16:27 Date of Discharge 05/24/2021 Attending Physician: JOHN VALENCIA MD Discharge Summary PROCEDURES PERFORMED DURING STAY: 05/18/2021 - Vascular surgery performed the followin. Aorto iliac angiogram, through left common femoral artery (ultrasound-guided )access 2. Right lower extremity arteriogram, performed through selective catheterization of the right superficial femoral artery, from the left common femoral artery access. 3. Balloon angioplasty of the right distal superficial femoral artery, popl iteal artery, and proximal posterior tibial artery. A 3 x 200 mm [place] balloon was used 4. Stenting of the right distal superficial femoral artery with 6x 100 mm Innova ([employer]) bare-metal self-expanding stent. 5. Post stent balloon angioplasty, using 5 x 100 mm [place] balloon. 6. Completion right lower extremity arteriogram 7. Intraoperative pressure measurements of the external iliac arteries bilaterally, to rule out proximal right common iliac artery significant stenosis requiring intervention 8. Mynx closure of the left common femoral artery access site 05/22/2021 - Podiatry performed the following 1. 4th and 5th ray amputations right foot; excisional debridement to muscle stage 4 ulceration right foot. ADMITTING DIAGNOSES: R ischemic toes DISCHARGE DIAGNOSES: Dry gangrene of right fourth and fifth toes 2/2 ischemia i/s/o peripheral arterial disease HFpEF, EF 75% CKD3 Chronic iron deficiency anemia GERD/hiatal hernia Obesity s/p Danielle-En-Y Atrial Fibrillation on eliquis Hypertension Type 2 diabetes, IDDM duodenal ulcer/gastric pouch ulceration/hx of upper GI bleed Esophagitis metaplasia, mild Sinusitis chronic Allergic rhinitis Dyslipidemia COPD DAVIDSON Diabetic retinopathy status post laser eye surgery History of breast cancer status post mastectomy Moderate atheroma in distal aortic arch and descending thoracic aorta Tubular adenoma in colon Lumbar spondylosis Severe pulmonary arterial pressure 74 mmHg Severe pulmonary hypertension Carotid stenosis Hx of gout COMPLICATIONS/CHIEF COMPLAINT: Right Eschemic Toes. HISTORY OF PRESENT ILLNESS: 69 y/o W with extensive past medical history listed above who presented as a direct admission from Dr. Kahn's office (podiatry) with the chief concern of necrotic 4th and 5th digits of right foot. The patient reported that approximately 2 weeks prior she dropped a bottle of shampoo on her foot in the area with the necrotic toes are. She says she noticed 3 days prior to admission that the toes were discolored and gradually worsened. She was being followed by her primary care provider for gout in that foot and had been sent her to podiatry to get further evaluated. Upon evaluation by Dr. Kahn who knows the patient well, his concern was ischemia of the fourth and fifth digits of the right foot. He then called to direct admit the patient to the hospital for further evaluation by vascular surgery. HOSPITAL COURSE: On exam the patient denied any feeling of the fourth and fifth digit of the right foot, she also could not move them on command. The digits were cold to touch and black in color. She reported that at home she uses a cane to ambulate. She also had a concerning necrotic area over the Achilles tendon of the lower right leg. The patient had labs done on 05/15/2021 which showed hypokalemia, chronic kidney disease with creatinine of 1.6 at recent baseline. The case was discussed with vascular surgery extension division director and on 05/18 she had an aorto iliac angiogram, through left common femoral artery (ultrasound-guided )access and had a Balloon angioplasty of the right distal superficial femoral artery, popliteal artery, and proximal posterior tibial artery, Stenting of the right distal superficial femoral artery with 6x 100 mm Innova ([employer]) bare-metal self-expanding stent, Post stent balloon angioplasty, Completion right lower extremity arteriogram, Intraoperative pressure measurements of the external iliac arteries bilaterally, to rule out proximal right common iliac artery significant stenosis requiring intervention and Mynx closure of the left common femoral artery access site. After improvement of her vascular follow, on 05/22 she had 4th and 5th ray amputations right foot, with excisional debridement to muscle stage 4 ulceration right foot by podiatry. Meanwhile since admission she had been placed on empiric zosyn for which she had a total of 8d of zosyn and her presenting cellulitis around the necrotic toes improved. She worked with PT/OT and was deemed safe for home discharge. Of note, while inpatient, she briefly had eliquis held while having surgeries and was started on plavix and so was ASA/plavix. I spoke with Dr. Castañeda today about her anticoagulation vs. antiplatelet plan given that she does have Afib and was on eliquis and we agreed to have her discharged on eliquis/ASA and stop the plavix and she will follow up with her in clinic upon discharge. I also spoke with Dr. Clarke about a reasonable antibiotic plan given recent cellulitis, necrotic toes without osteomyelitis and thus far unrevealing micro data and agreed to treat a few more days to completion with renally dosed levaquin. In the meantime, Dr. Kahn is to see her this afternoon before discharge and will give wound care recommendations. DISCHARGE MEDICATIONS: Please see below. ALLERGIES: Please see below. PHYSICAL EXAMINATION ON DISCHARGE: VITAL SIGNS: Please see below. VS: Please see below CONSTITUTIONAL: No acute distress, AAO x 3 EYES: PERRLA, EOM intact HENT, MOUTH: Normocephalic, atraumatic, moist mucous membranes NECK: SUPPLE, no JVD, no lymphadenopathy, no carotid bruit CV: Regular rate and rhythm, S1S2 normal, no murmurs/rubs/gallops RESPIRATORY: Crackles in post lung ocampo-minimal. no rales/rhonchi/wheezes GI: BS positive in 4 quadrants, soft, nontender, nondistended, no rebound or guarding, no organomegaly EXT: +1-2 pitting lower extremity edema, necrotic 4th and 5th R toes INTEGUMENTARY: 6 cm necrotic wounds over the right lower extremity Achilles tendon area of leg, fourth and fifth digit of the right foot in c/d/i dressing post amputation. Several crusted wounds anteriorly of the right and. There is a 3 cm wound of the left anterior alvarado. no rashes. Left groin area nontender now where angiogram occurred without bleeding or surrounding erythema. NEUROLOGIC: Cranial Nerves II-XII are intact. Decreased sensation to fine and dull touch in the fourth and fifth digit of the right foot PSYCHIATRIC: Mood and affect are normal LABORATORY DATA: Reviewed Please see below MICRO: BCx: NG IMAGING: Right foot MRI: 1. Soft tissue swelling through the foot including the flexor and extensor muscles. 2. Focal soft tissue swelling 3rd 4th and 5th digits with no evidence of osteomyelitis. B/l lower ext arterial US: Moderate to severe plaque was seen bilaterally but right greater than left. A stenosis was seen at the right popliteal artery stenosis was also seen at the left popliteal artery proximally the distal posterior tibial artery was seen to be occluded. The examination was somewhat limited due to patient motion and plaque formation. Carotid US: 50-69 % category narrowing in the right internal carotid artery by Doppler velocity criteria. Right CCA and ICA velocities are decreased compared to the prior study. Less than 50% category narrowing in the left ICA by Doppler velocity criteria. Left CCA and ICA velocities are decreased compared to the prior study. 05/22/2021: R foot XR: Baseline examination demonstrates the patient to be status post amputation through the 4th and 5th metatarsal diaphyses. Remainder of the osseous structures demonstrate age-related degenerative changes. IMPRESSION: Status post amputation through the mid 4th and 5th metatarsal diaphyses. 05/23 R aorto/illiac arterial US: Evaluation is limited due to overlying bowel gas and body habitus. The distal aorta is not visualized. Right common iliac artery velocity: 80 cm/sec and triphasic Right external iliac artery velocity: 98.2 cm/sec and monophasic/triphasic Left common iliac artery velocity: 122 cm/sec and triphasic Left external iliac artery velocity: 97 cm/sec and triphasic IMPRESSION: 1. Evaluation is significantly limited due to body habitus and overlying bowel gas. No obvious visible stenosis is appreciated. If there is continued concern, MRA or CTA should be considered for further investigation. PROGNOSIS: Good ACTIVITY: As tolerated. DIET: consistent carb, 2g sodium DISCHARGE PLAN: Home with services, 3 more doses Q48H levaquin. PCP within 7d, podiatry within 7d, vascular surgery within 2w. DISPOSITION: Home with service DISCHARGE INSTRUCTIONS: Home with services, 3 more doses Q48H levaquin. PCP within 7d, podiatry within 7d, vascular surgery within 2w. ITEMS TO FOLLOWUP ON ON OUTPATIENT: Post surgery podiatry folllow up Vascular follow up post stenting and angioplasty for PVD PCP follow up for resolution of cellulitis nephrology follow up for CKD DISCHARGE CONDITION: Stable TIME SPENT ON DISCHARGE: 60 minutes. Vital Signs/I&Os Vital Signs Date Time Temp Pulse Resp B/P (MAP) Pulse Ox O2 Delivery O2 Flow Rate FiO2 05/24/21 09:31 94 124/59 05/24/21 06:00 97.1 18 97 Room Air 05/18/21 12:26 2.0 I&O- Last 24 Hours up to 6 AM 05/24/21 06:00 Intake Total 670 ml Balance 670 ml Laboratory Data Labs 24H Laboratory Tests 2 05/24/21 06:54: Nucleated Red Blood Cells % (auto) 0.7H 05/24/21 06:59: Anion Gap 7L, Glomerular Filtration Rate 31.1L, Calcium Level 8.3L, Phosphorus Level 3.6, C-Reactive Protein, Quantitative 3.29H, Albumin 1.9L CBC/BMP Laboratory Tests 05/24/21 06:54 05/24/21 06:59 Microbiology Microbiology 05/22/21 Gram Stain - Final, Resulted 05/22/21 Wound Culture, Resulted Pending 05/22/21 Anaerobic Culture, Resulted Pending 05/16/21 Blood Culture - Final, Complete NO GROWTH AFTER 5 DAYS 05/16/21 Blood Culture - Final, Complete NO GROWTH AFTER 5 DAYS Discharge Medications Scheduled Acetaminophen (Tylenol Arthritis) 650 Mg Tablet.er, 1,300 MG PO BID, (Reported) Apixaban (Eliquis) 5 Mg Tab, 5 MG PO BID, (Reported) Aspirin (Aspirin EC) 81 Mg Tablet.dr, 81 MG PO DAILY, (Reported) Bisoprolol Fumarate (Bisoprolol Fumarate) 5 Mg Tab, 5 MG PO DAILY, (Reported) Colchicine (Colchicine) 0.6 Mg Tablet, 0.3 MG PO DAILY, (Reported) Colesevelam Hydrochloride (Welchol) 625 Mg Tablet, 625 MG PO BID, (Reported) Cyanocobalamin (Vitamin B-12) (Vitamin B-12) 500 Mcg Tablet, 500 MCG PO DAILY, (Reported) Dexlansoprazole (Dexilant) 60 Mg Cap.bp, 60 MG PO QHS, (Reported) Diltiazem HCl (Diltiazem HCl) 30 Mg Tab, 15 MG PO BID Docusate Sodium (Docusate Sodium) 100 Mg Capsule, 100 MG PO DAILY, (Reported) Ergocalciferol (Vitamin D2) (Vitamin D2) 50,000 Units Cap, 50,000 UNITS PO 1XWK, (Reported) FRIDAY EVENING Escitalopram Oxalate (Lexapro) 10 Mg Tablet, 10 MG PO DAILY, (Reported) Ferrous Sulfate (Ferrous Sulfate) 325 Mg Tab, 650 MG PO Q2D, (Reported) AT NIGHT Gabapentin (Neurontin) 300 Mg Cap, 300 MG PO QHS, (Reported) Insulin Aspart (Novolog Flexpen) 100 Unit/Ml Inj, 1 DOSE SC AC, (Reported) PER SLIDING SCALE Levofloxacin (Levofloxacin) 750 Mg Tablet, 1 TAB PO Q48H Metoclopramide HCl (Metoclopramide HCl) 5 Mg Tablet, 5 MG PO BID, (Reported) Nystatin (Nystop) 60 Gm Powder, 1 DOSE TOP BID Pantoprazole Sodium (Pantoprazole Sodium) 40 Mg Tablet.dr, 40 MG PO DAILY, (Reported) Potassium Chloride (Klor-Con M10) 10 Meq Tabcr, 10 MEQ PO BID, (Reported) Rosuvastatin Calcium (Crestor) 20 Mg Tab, 20 MG PO DAILY, (Reported) Spironolactone (Spironolactone) 25 Mg Tab, 25 MG PO DAILY, (Reported) Sucralfate (Sucralfate) 1 Gm Tablet, 1 GM PO BID, (Reported) Torsemide (Torsemide) 10 Mg Tablet, 10 MG PO BID, (Reported) Scheduled PRN Mupirocin (Mupirocin) 2 % Oint...g., 1 DOSE EXT BID PRN for OPEN SORES, (Reported) APPLIES TO LOWER RIGHT LEG Oxycodone HCl (Oxycodone HCl) 5 Mg Tablet, 5 MG PO Q6HP PRN for MODERATE/SEVERE PAIN (PS 5-10) Triamcinolone Acet (Triamcinolone Acetonide 0.1% Oint) 15 Gm Oint...g., 1 DOSE TOP BID PRN for RASH, (Reported) APPLIES TO LOWER RIGHT LEG Allergies Coded Allergies: Sulfa (Sulfonamide Antibiotics) (Verified Allergy, Severe, anaphylaxis, rash, 04/30/19) neomycin (Verified Allergy, Intermediate, rash, 04/30/19) ramipril (Verified Adverse Reaction, Intermediate, cough, 04/30/19) JOHN VALENCIA MD May 24, 2021 11:41
[2021-05-24] MEDS: oxyCODONE 5MG TAB PO PRN (19:41)
[2021-05-24 20:29] VITALS: BP 148/70
[2021-05-24] MEDS: GABAPENTIN 300 MG CAP PO SCH (20:29)
--- NOTE | 2021-05-24 21:27 | IPNPDOC ---
Subjective CC/HPI The patient is a 70-year-old female admitted with a reason for visit of Right Eschemic Toes. Events since last encounter Pt reports pain in Rt foot is better optimized. Renal function is slightly worse Cr 1.5-->1.7. Acidosis improving bicarb 18-->20. Hypernatremia is noted Na 147.she reports mild edema Rt leg. General: Denies: Chills, Night Sweats Constitutional: Denies: Chills, Fever, Malaise Eyes: Denies: Pain, Vision change ENT: Denies: Head Aches, Ear Pain Skin: Reports: Breakdown (Rt foot dressing); Denies: Rash Pulmonary: Denies: Dyspnea, Cough Cardiovascular: Denies: Chest Pain, Palpitations Gastrointestinal: Denies: Nausea, Vomiting Genitourinary: Denies: Dysuria, Frequency Hematologic: Denies: Bruising, Bleeding Excessively Musculoskeletal: Denies: Neck Pain, Back Pain Neurological: Denies: Weakness Psych: Reports: Mood Normal Objective Physical Examination General Exam: Alert, No Acute Distress EYE EXAM: PERRLA, Conjunctiva & lids normal, EOMI ENT EXAM: Atraumatic, Mucous membr. moist/pink Neck Exam: Supple, JVD (mild) Chest Exam: Normal air movement; No: Rales Heart Exam: Rate Normal, Irregular Rhythm (Afib), Other (JVD noted); No: Murmurs, Rubs ABDOMEN EXAM: Normal bowel sounds, Soft; No: Tenderness Extremity Exam: Other (Rt 4th and 5 toe amputated. Dressing on); No: Clubbing Skin Exam: Nl turgor and temperature Neuro Exam: Normal Speech, Strength at 5/5 X4 ext Psych Exam: Mental status NL, Mood NL Vital Signs/I&O Vital Signs Date Time Temp Pulse Resp B/P (MAP) Pulse Ox O2 Delivery O2 Flow Rate FiO2 05/24/21 20:29 84 148/70 05/24/21 20:11 16 05/24/21 13:50 98.8 96 Room Air 05/18/21 12:26 2.0 I&O- Last 24 Hours up to 6 AM 05/24/21 06:00 Intake Total 670 ml Balance 670 ml Laboratory Data Labs 24H Laboratory Tests 2 05/24/21 06:54: Nucleated Red Blood Cells % (auto) 0.7H 05/24/21 06:59: Anion Gap 7L, Glomerular Filtration Rate 31.1L, Calcium Level 8.3L, Phosphorus Level 3.6, C-Reactive Protein, Quantitative 3.29H, Albumin 1.9L CBC/BMP Laboratory Tests 05/24/21 06:54 05/24/21 06:59 Current Medications Current Medications Medications (Trade) Dose Ordered Sig/Tariq Route PRN Reason Start Time Stop Time Status Last Admin Dose Admin Acetaminophen (Tylenol Arthritis Er) 1,300 mg BID PO 05/16/21 21:00 05/24/21 20:30 Apixaban (Eliquis) 5 mg BID PO 05/16/21 21:00 05/17/21 17:23 DC 05/17/21 10:25 Aspirin (Ecotrin) 81 mg DAILY PO 05/17/21 09:00 05/24/21 09:30 Bisoprolol Fumarate (Zebeta) 5 mg DAILY PO 05/17/21 09:00 05/20/21 11:28 DC 05/20/21 08:19 Clopidogrel Bisulfate (PLAVix) 75 mg DAILY PO 05/19/21 09:00 05/24/21 09:30 Clopidogrel Bisulfate (PLAVix) 300 mg STAT STAT PO 05/18/21 13:07 05/18/21 13:08 Cancel Clopidogrel Bisulfate (PLAVix) 300 mg STAT STAT PO 05/18/21 13:12 05/18/21 13:13 DC 05/18/21 13:19 Colchicine (Colcrys) 0.3 mg DAILY PO 05/17/21 09:00 05/19/21 10:14 DC 05/19/21 08:44 Colesevelam HCl (WelChoL) 625 mg BIDWM PO 05/17/21 08:00 05/24/21 09:29 Cyanocobalamin (Vitamin B12) 500 mcg DAILY PO 05/17/21 09:00 05/24/21 09:30 Diltiazem HCl (Cardizem) 15 mg BID PO 05/20/21 21:00 05/24/21 20:29 Diltiazem HCl (Cardizem) 30 mg BID PO 05/16/21 21:00 05/20/21 14:38 DC 05/20/21 08:18 Docusate Sodium (Colace) 100 mg DAILY PO 05/17/21 09:00 05/22/21 09:15 Escitalopram Oxalate (Lexapro) 10 mg DAILY PO 05/17/21 09:00 05/24/21 09:29 Fentanyl Citrate (Sublimaze) 25 mcg Q5MP PRN IV PAIN LEVEL 8-10 05/22/21 18:50 05/22/21 20:50 DC Ferrous Sulfate (Ferrous Sulfate) 650 mg Q48H PO 05/17/21 21:00 05/17/21 01:12 DC Gabapentin (Neurontin) 300 mg QHS PO 05/17/21 00:00 05/24/21 20:29 Heparin Sodium (Porcine) (Heparin) 5,000 units Q12H SQ 05/19/21 09:00 05/24/21 09:32 Home Med (Home Med List Complete!) ASDIRECTED XX 05/16/21 23:25 05/16/21 23:22 DC Hydralazine HCl (Apresoline) 10 mg Q6H PRN IV SEE DOSE INSTRUCTIONS 05/18/21 08:40 05/18/21 12:00 DC Iron 200 mg/ Sodium Chloride 110 ml @ 110 mls/hr DAILY IV 05/20/21 16:00 05/23/21 09:59 DC 05/23/21 10:49 Losartan Potassium (Cozaar) 50 mg DAILY PO 05/17/21 09:00 05/17/21 16:53 DC 05/17/21 10:23 Losartan Potassium (Cozaar) 50 mg DAILY PO 05/19/21 09:00 05/18/21 09:01 DC Metoclopramide HCl (Reglan) 5 mg BID PO 05/16/21 21:00 05/24/21 20:30 Miscellaneous (Unresolved Clarification Entry) SEE LABEL COMMENTS UNRESOLVED XX 05/17/21 00:01 05/16/21 18:35 DC Nystatin (Mycostatin Powder, Nystop) apply between excoria... BID TOP 05/19/21 21:00 05/24/21 09:33 Ondansetron HCl (ZOFRAN INJection) 4 mg Q4HP PRN IV NAUSEA OR VOMITING 05/22/21 18:50 05/22/21 20:50 DC Oxycodone HCl (Roxicodone, Oxyir) 5 mg Q8HP PRN PO MODERATE PAIN (PS 5-7) 05/22/21 22:40 05/22/21 23:10 Oxycodone HCl (Roxicodone, Oxyir) 10 mg Q8HP PRN PO SEVERE PAIN (PS 8-10) 05/23/21 03:55 05/24/21 19:41 Pantoprazole Sodium (Protonix) 40 mg DAILY PO 05/17/21 09:00 05/24/21 09:30 Piperacillin Sod/ Tazobactam Sod 3.375 gm/Dextrose 50 ml @ 50 mls/hr Q6H IV 05/16/21 18:00 05/24/21 13:50 Potassium Chloride/Dextrose 1,000 ml @ 70 mls/hr [id number] IV 05/20/21 13:45 05/21/21 04:02 DC 05/20/21 16:09 Potassium Chloride (Micro-K Extencaps) 10 meq BID PO 05/17/21 09:00 05/18/21 20:37 DC 05/18/21 14:03 Rosuvastatin Calcium (Crestor) 20 mg DAILY PO 05/17/21 09:00 05/24/21 09:30 Sodium Chloride 1,000 ml @ 50 mls/hr Q20H IV 05/18/21 00:05 05/18/21 08:27 DC 05/18/21 08:07 Sodium Chloride 1,000 ml @ 100 mls/hr Q10H IV 05/18/21 09:25 05/19/21 07:47 DC 05/19/21 05:49 Spironolactone (Aldactone) 25 mg DAILY PO 05/17/21 09:00 05/17/21 16:53 DC 05/17/21 10:25 Spironolactone (Aldactone) 25 mg DAILY PO 05/19/21 09:00 05/18/21 09:01 DC Spironolactone (Aldactone) 25 mg QAM PO 05/20/21 13:45 05/24/21 09:29 Sucralfate (Carafate) 1 gm BID PO 05/16/21 21:00 05/24/21 20:28 Torsemide (Demadex) 10 mg BID@0900,1700 PO 05/16/21 17:00 05/18/21 09:01 DC 05/17/21 18:22 Torsemide (Demadex) 10 mg QAM PO 05/25/21 09:00 Torsemide (Demadex) 20 mg QAM PO 05/23/21 09:00 05/24/21 12:30 DC 05/24/21 09:30 Allergies Coded Allergies: Sulfa (Sulfonamide Antibiotics) (Verified Allergy, Severe, anaphylaxis, ra sh, 04/30/19) neomycin (Verified Allergy, Intermediate, rash, 04/30/19) ramipril (Verified Adverse Reaction, Intermediate, cough, 04/30/19) Assessment/Plan Date Seen The patient was seen on 05/24/21 in morning at bedside. Plan / VTE VTE Prophylaxis Ordered?: Yes Plan Orders past 48 Hours Orders Oxycodone Hcl (Roxicodone, Oxyir) (05/22/21 22:40) Oxycodone Hcl (Roxicodone, Oxyir) (05/23/21 03:55) Cbc With Auto Diff (05/23/21 08:54) Renal Profile (05/23/21 08:54) Pt Eval & Tx As Needed (05/23/21 10:38) Ot Eval & Treat As Needed (05/23/21 10:38) Duplex Aorta/Iv/Iliac(C) (05/23/21 15:24) C Reactive Protein Quantitativ (05/24/21 06:00) C Reactive Protein Quantitativ (05/25/21 06:00) C Reactive Protein Quantitativ (05/26/21 06:00) Activity As Tolerated (05/23/21 14:01) Renal Profile (05/26/21 06:00) Renal Profile (05/27/21 06:00) Renal Profile (05/28/21 06:00) Renal Profile (05/29/21 06:00) Renal Profile (05/24/21 06:59) Complete Blood Count (05/24/21 09:55) Discharge/Transfer Order (05/24/21 11:03) Torsemide (Demadex) (05/25/21 09:00) Patient Discharge Instruction (05/24/21 19:20) Renal Profile (05/25/21 06:00) Plan Text 1. Chronic kidney disease stage 3B:Cr 1.58-->1.7 today. Decrease the torsemide to 10 mg daily. 2. HFpEF: LVEF~70% in 2020. continue current dose of clay and decrease torsemide to 10 mg as mentioned above. 3. Hypertension: Controlled with diltiazem. 4. Atrial fibrillation: Ventricular rate is well controlled with calcium channel chivo. She has been on chronic anticoagulation with Eliquis. 5. Iron def Anemia: s/p venofer. Hb8. She recently got Rt foot surgery as well. Transfuse PRN for Hb<8. 6. Right foot ischemia with 4th and 5th gangrenous toes: Peripheral vascular disease on Rt leg angiogram. Cont Zosyn. s/p Rt 4th and 5th toe amputation. 7.Hypernatremia: Decrease torsemide dose to 10 mg. GASPER CHUNG MD May 24, 2021 21:27
[2021-05-25] MEDS ORDERED: TORSEMIDE 10 MG TABLET PO SCH (09:00)
== END 2021-05-24 21:25 | disposition home health service (06) | DRG 253 ==
LOC: M PCU 16:27 → M MSPAV 18:15
PROVIDERS: ADMIT Internal Medicine; ATTEND Internal Medicine
PROC: 047M3ZZ Dilation of Right Popliteal Artery, Percutaneous Approach (ICD-10-PCS; 2021-05-18)
PROC: 047R3ZZ Dilation of Right Posterior Tibial Artery, Percutaneous Approach (ICD-10-PCS; 2021-05-18)
PROC: 047K3DZ Dilation of Right Femoral Artery with Intraluminal Device, Percutaneous Approach (ICD-10-PCS; principal; 2021-05-18 08:30)
PROC: 0Y6V0Z2 Detachment at Right 4th Toe, Mid, Open Approach (ICD-10-PCS; 2021-05-22)
PROC: 0Y6X0Z2 Detachment at Right 5th Toe, Mid, Open Approach (ICD-10-PCS; 2021-05-22)
PROC: 0KBV0ZZ Excision of Right Foot Muscle, Open Approach (ICD-10-PCS; 2021-05-22)
DX: E11.52 Type 2 diabetes mellitus with diabetic peripheral angiopathy with gangrene (principal); I50.32 Chronic diastolic (congestive) heart failure; I13.0 Hypertensive heart and chronic kidney disease with heart failure and stage 1 through stage 4 chronic kidney disease, or unspecified chronic kidney disease; I48.20 Chronic atrial fibrillation, unspecified; L03.115 Cellulitis of right lower limb; N17.9 Acute kidney failure, unspecified; I70.261 Atherosclerosis of native arteries of extremities with gangrene, right leg; L97.315 Non-pressure chronic ulcer of right ankle with muscle involvement without evidence of necrosis; E87.0 Hyperosmolality and hypernatremia; D50.9 Iron deficiency anemia, unspecified; K21.00 Gastro-esophageal reflux disease with esophagitis, without bleeding; K44.9 Diaphragmatic hernia without obstruction or gangrene; I48.91 Unspecified atrial fibrillation; E78.5 Hyperlipidemia, unspecified; J44.9 Chronic obstructive pulmonary disease, unspecified; G47.33 Obstructive sleep apnea (adult) (pediatric); I70.0 Atherosclerosis of aorta; M47.816 Spondylosis without myelopathy or radiculopathy, lumbar region; I27.20 Pulmonary hypertension, unspecified; E87.6 Hypokalemia; E11.42 Type 2 diabetes mellitus with diabetic polyneuropathy; N18.32 Chronic kidney disease, stage 3b; E11.22 Type 2 diabetes mellitus with diabetic chronic kidney disease; I65.23 Occlusion and stenosis of bilateral carotid arteries; Z79.01 Long term (current) use of anticoagulants; Z79.4 Long term (current) use of insulin; Z79.899 Other long term (current) drug therapy; Z88.2 Allergy status to sulfonamides; Z88.8 Allergy status to other drugs, medicaments and biological substances; Z85.3 Personal history of malignant neoplasm of breast; Z98.84 Bariatric surgery status; Z90.13 Acquired absence of bilateral breasts and nipples; Z90.49 Acquired absence of other specified parts of digestive tract; Z95.3 Presence of xenogenic heart valve; Z87.891 Personal history of nicotine dependence

== ENCOUNTER → 2021-05-29 | Outpatient (CLI) | payer MEDICARE, OTHER ==
[~2021-05-29] MED LIST changes: +COLC0.6T47 PO; +DOCU100C16 PO; +LEVO750T13 PO; +LEXA1TAB PO; +METO5TAB2 PO; +MUPI2OI EXT; +NYST10006 TOP; +OXYC-517 PO; +TRIA1OI TOP; +VITA-172 PO
[2021-05-29 13:55] LABS: BASO % 0.2 % (0.0-1.0); EOS # 0.1 10^3/uL (0.0-0.5); EOS % 1.4 % (0.0-3.0); HEMATOCRIT 30.5 % (36.0-47.0); HEMOGLOBIN 9.2 g/dl (12.0-15.5); LYMPH # 0.8 10^3/uL (1.5-5.0); LYMPH % 9.9 % (24.0-44.0); MEAN CORPUSCULAR HEMOGLOBIN 29.8 pg (27.0-33.0); MEAN CORPUSCULAR HGB CONC 30.2 g/dl (32.0-36.5); MEAN CORPUSCULAR VOLUME 98.7 fl (80.0-96.0); MONO # 0.7 10^3/uL (0.0-0.8); MONO % 8.6 % (2.0-8.0); NEUTROPHILS # 6.5 10^3/uL (1.5-8.5); NEUTROPHILS % 78.8 % (36.0-66.0); PLATELET COUNT, AUTOMATED 207 10^3/uL (150-450); RED BLOOD COUNT 3.09 10^6/uL (4.00-5.40); WHITE BLOOD COUNT 8.3 10^3/uL (4.0-10.0)
[2021-05-29 14:36] LABS: ALBUMIN 2.6 GM/DL (3.2-5.2); BILIRUBIN,TOTAL 0.3 MG/DL (0.2-1.0); CALCIUM LEVEL 8.2 MG/DL (8.8-10.2); CREATININE FOR GFR 1.48 MG/DL (0.55-1.30); GLOMERULAR FILTRATION RATE 37.2 (>45); MAGNESIUM LEVEL 1.8 MG/DL (1.8-2.4); POTASSIUM SERUM 3.9 MEQ/L (3.5-5.1); TOTAL PROTEIN 6.3 GM/DL (6.4-8.2); URIC ACID 10.3 MG/DL (2.6-6.0)
== END ==
LOC: M PLALAB 10:00
PROVIDERS: ATTEND Family Medicine
DX: I50.30 Unspecified diastolic (congestive) heart failure (principal)

== ENCOUNTER → 2021-06-01 | Outpatient (CLI) | payer MEDICARE, OTHER ==
[2021-06-01 16:03] LABS: BASO % 0.3 % (0.0-1.0); EOS # 0.1 10^3/uL (0.0-0.5); EOS % 1.7 % (0.0-3.0); HEMATOCRIT 29.7 % (36.0-47.0); HEMOGLOBIN 9.2 g/dl (12.0-15.5); LYMPH # 0.8 10^3/uL (1.5-5.0); LYMPH % 12.6 % (24.0-44.0); MEAN CORPUSCULAR HEMOGLOBIN 29.9 pg (27.0-33.0); MEAN CORPUSCULAR VOLUME 96.4 fl (80.0-96.0); MONO # 0.8 10^3/uL (0.0-0.8); MONO % 11.7 % (2.0-8.0); NEUTROPHILS # 4.7 10^3/uL (1.5-8.5); NEUTROPHILS % 73.5 % (36.0-66.0); PLATELET COUNT, AUTOMATED 204 10^3/uL (150-450); RED BLOOD COUNT 3.08 10^6/uL (4.00-5.40); WHITE BLOOD COUNT 6.4 10^3/uL (4.0-10.0)
[2021-06-01 16:41] LABS: ALBUMIN 2.5 GM/DL (3.2-5.2); CALCIUM LEVEL 8.1 MG/DL (8.8-10.2); CREATININE FOR GFR 1.56 MG/DL (0.55-1.30); PERCENT SATURATION 18.8 % (13.2-45.0); PHOSPHORUS LEVEL 3.4 MG/DL (2.5-4.9); POTASSIUM SERUM 4.1 MEQ/L (3.5-5.1)
== END ==
LOC: M PLALAB 13:20
PROVIDERS: ATTEND Family Medicine
DX: I50.30 Unspecified diastolic (congestive) heart failure (principal)

== ENCOUNTER → 2021-06-04 | Outpatient (CLI) | payer MEDICARE, OTHER ==
[2021-06-04 12:49] LABS: BASO % 0.3 % (0.0-1.0); EOS # 0.1 10^3/uL (0.0-0.5); EOS % 1.5 % (0.0-3.0); HEMATOCRIT 34.5 % (36.0-47.0); HEMOGLOBIN 10.6 g/dl (12.0-15.5); LYMPH # 0.8 10^3/uL (1.5-5.0); MEAN CORPUSCULAR HEMOGLOBIN 29.6 pg (27.0-33.0); MEAN CORPUSCULAR HGB CONC 30.7 g/dl (32.0-36.5); MEAN CORPUSCULAR VOLUME 96.4 fl (80.0-96.0); MONO # 0.8 10^3/uL (0.0-0.8); MONO % 11.1 % (2.0-8.0); NEUTROPHILS # 5.1 10^3/uL (1.5-8.5); NEUTROPHILS % 74.7 % (36.0-66.0); PLATELET COUNT, AUTOMATED 203 10^3/uL (150-450); RED BLOOD COUNT 3.58 10^6/uL (4.00-5.40); WHITE BLOOD COUNT 6.9 10^3/uL (4.0-10.0)
[2021-06-04 19:10] LABS: CALCIUM LEVEL 9.1 MG/DL (8.8-10.2); CREATININE FOR GFR 1.49 MG/DL (0.55-1.30); GLOMERULAR FILTRATION RATE 36.9 (>45); POTASSIUM SERUM 4.7 MEQ/L (3.5-5.1)
== END ==
LOC: M LAB 11:53
PROVIDERS: ATTEND Physician Assistant Medical
DX: N18.32 Chronic kidney disease, stage 3b (principal); D50.9 Iron deficiency anemia, unspecified
CPT/HCPCS: 36415; 80048; 82728; 83540; 83880; 85025; G0463

== ENCOUNTER → 2021-06-25 | Outpatient (CLI) | payer MEDICARE, OTHER ==
[2021-06-25 14:09] LABS: CALCIUM LEVEL 9.1 MG/DL (8.8-10.2); CREATININE FOR GFR 1.68 MG/DL (0.55-1.30); GLOMERULAR FILTRATION RATE 32.2 (>45); MAGNESIUM LEVEL 2.1 MG/DL (1.8-2.4); POTASSIUM SERUM 4.4 MEQ/L (3.5-5.1)
== END ==
LOC: M PLALAB 11:57
PROVIDERS: ATTEND Physician Assistant
DX: I50.32 Chronic diastolic (congestive) heart failure (principal); I48.0 Paroxysmal atrial fibrillation
CPT/HCPCS: 36415; 80048; 83735; 83880; G0463

== ENCOUNTER → 2021-08-06 | Outpatient (CLI) | payer MEDICARE, OTHER ==
[~2021-08-06] MED LIST changes: -CEFD1CAP8 PO; +CEFD300C41 PO; -MOME50SP; +NASO50SP3
== END ==
LOC: M PLALAB 09:19
PROVIDERS: ATTEND Physician Assistant
DX: I50.32 Chronic diastolic (congestive) heart failure (principal); I48.0 Paroxysmal atrial fibrillation

== ENCOUNTER → 2021-08-06 | Outpatient (CLI) | payer MEDICARE, OTHER ==
[2021-08-06 13:37] LABS: BASO % 0.5 % (0.0-1.0); EOS # 0.2 10^3/uL (0.0-0.5); EOS % 2.3 % (0.0-3.0); HEMATOCRIT 34.9 % (36.0-47.0); HEMOGLOBIN 10.6 g/dl (12.0-15.5); LYMPH # 1.1 10^3/uL (1.5-5.0); LYMPH % 13.4 % (24.0-44.0); MEAN CORPUSCULAR HEMOGLOBIN 29.9 pg (27.0-33.0); MEAN CORPUSCULAR HGB CONC 30.4 g/dl (32.0-36.5); MEAN CORPUSCULAR VOLUME 98.6 fl (80.0-96.0); MONO # 0.6 10^3/uL (0.0-0.8); MONO % 7.7 % (2.0-8.0); NEUTROPHILS # 6.3 10^3/uL (1.5-8.5); NEUTROPHILS % 75.7 % (36.0-66.0); PLATELET COUNT, AUTOMATED 173 10^3/uL (150-450); RED BLOOD COUNT 3.54 10^6/uL (4.00-5.40); WHITE BLOOD COUNT 8.3 10^3/uL (4.0-10.0)
[2021-08-06 13:45] LABS: HEMATOCRIT 34.9 % (36.0-47.0)
[2021-08-06 13:52] LABS: HEMOGLOBIN A1c 4.8 %
[2021-08-06 14:12] LABS: ALBUMIN 3.2 GM/DL (3.2-5.2); BILIRUBIN,TOTAL 0.2 MG/DL (0.2-1.0); CALCIUM LEVEL 8.8 MG/DL (8.8-10.2); CREATININE FOR GFR 1.45 MG/DL (0.55-1.30); GLOMERULAR FILTRATION RATE 38.1 (>45); MAGNESIUM LEVEL 2.1 MG/DL (1.8-2.4); POTASSIUM SERUM 4.1 MEQ/L (3.5-5.1); PTH INTACT 99.9 PG/ML (18.5-88.0); TOTAL 25(OH) VITAMIN D 68.7 NG/ML (30.0-100.0); TOTAL PROTEIN 6.6 GM/DL (6.4-8.2)
== END ==
LOC: M PLALAB 09:17
PROVIDERS: ATTEND Family Medicine
DX: D50.9 Iron deficiency anemia, unspecified (principal); I50.32 Chronic diastolic (congestive) heart failure; E53.8 Deficiency of other specified B group vitamins; I48.0 Paroxysmal atrial fibrillation; Z79.899 Other long term (current) drug therapy

== ENCOUNTER → 2021-09-17 | Outpatient (CLI) | payer MEDICARE, OTHER ==
[2021-09-17 11:43] LABS: CALCIUM LEVEL 9.3 MG/DL (8.8-10.2); CREATININE FOR GFR 1.57 MG/DL (0.55-1.30); GLOMERULAR FILTRATION RATE 34.8 (>45); POTASSIUM SERUM 3.5 MEQ/L (3.5-5.1)
[2021-09-18 08:34] LABS: MAGNESIUM LEVEL 1.9 MG/DL (1.7-2.2)
== END ==
LOC: M LAB 10:12
PROVIDERS: ATTEND Physician Assistant
DX: I50.32 Chronic diastolic (congestive) heart failure (principal); I48.0 Paroxysmal atrial fibrillation

== ENCOUNTER → 2021-09-21 | Outpatient (REF) | payer MEDICARE, OTHER ==
[2021-09-21 15:36] LABS: APPEARANCE, URINE CLOUDY (CLEAR); BACTERIA, URINE AUTO 2+ (NEGATIVE); BILIRUBIN, URINE AUTO NEGATIVE (NEGATIVE); BLOOD, URINE BLOOD NEGATIVE (NEGATIVE); COLOR, URINE YELLOW (YELLOW); GLUCOSE, URINE (UA) AUTO NEGATIVE (NEGATIVE); KETONE, URINE AUTO NEGATIVE (NEGATIVE); LEUKOCYTE ESTERASE, URINE AUTO 3+ (NEGATIVE); MUCUS, URINE SMALL (NEGATIVE); NITRITE, URINE AUTO NEGATIVE (NEGATIVE); PROTEIN, URINE AUTO NEGATIVE (NEGATIVE); RBC, URINE AUTO 11 /HPF (0-3); SPECIFIC GRAVITY URINE AUTO 1.012 (1.002-1.035); SQUAMOUS EPITHELIAL CELL UR AU 33 /HPF (0-6); TRANSITIONAL EPITHELIAL AUTO <1 /HPF; UROBILINOGEN, URINE AUTO 0.2 mg/dL (0.0-2.0); WBC, URINE AUTO 70 /HPF (0-3)
== END ==
LOC: M SFHCPLAZ 15:01
PROVIDERS: ATTEND Family Medicine
DX: R30.0 Dysuria (principal)

== ENCOUNTER → 2021-10-15 | Outpatient (CLI) | payer MEDICARE, OTHER ==
[2021-10-15 10:45] LABS: BASO % 0.4 % (0.0-1.0); EOS # 0.2 10^3/uL (0.0-0.5); EOS % 2.4 % (0.0-3.0); HEMATOCRIT 38.3 % (36.0-47.0); HEMOGLOBIN 12.2 g/dl (12.0-15.5); LYMPH % 13.2 % (24.0-44.0); MEAN CORPUSCULAR HEMOGLOBIN 29.3 pg (27.0-33.0); MEAN CORPUSCULAR HGB CONC 31.9 g/dl (32.0-36.5); MEAN CORPUSCULAR VOLUME 91.8 fl (80.0-96.0); MONO # 0.6 10^3/uL (0.0-0.8); MONO % 7.6 % (2.0-8.0); NEUTROPHILS % 76.1 % (36.0-66.0); PLATELET COUNT, AUTOMATED 132 10^3/uL (150-450); RED BLOOD COUNT 4.17 10^6/uL (4.00-5.40); WHITE BLOOD COUNT 7.8 10^3/uL (4.0-10.0)
[2021-10-15 11:16] LABS: ALBUMIN 3.8 GM/DL (3.2-5.2); BILIRUBIN,TOTAL 0.4 MG/DL (0.2-1.0); CALCIUM LEVEL 9.3 MG/DL (8.8-10.2); CHOLESTEROL RISK RATIO 4.281 (<5); FREE T4 0.78 NG/DL (0.76-1.46); GLOMERULAR FILTRATION RATE 26.3 (>45); POTASSIUM SERUM 4.6 MEQ/L (3.5-5.1); THYROID STIMULATING HORMONE 2.1 uIU/ML (0.358-3.740); TOTAL PROTEIN 7.3 GM/DL (6.4-8.2); URIC ACID 11.4 MG/DL (2.6-6.0)
[2021-10-15 13:14] LABS: HEMOGLOBIN A1c 5.4 %
[2021-10-16 11:33] LABS: PTH INTACT 90.7 PG/ML (18.5-88.0); TOTAL 25(OH) VITAMIN D 62.3 NG/ML (30.0-100.0)
== END ==
LOC: M LAB 09:54
PROVIDERS: ATTEND Family Medicine
DX: M10.9 Gout, unspecified (principal); E55.9 Vitamin D deficiency, unspecified; E66.9 Obesity, unspecified; Z79.899 Other long term (current) drug therapy

== ENCOUNTER → 2021-10-15 | Outpatient (CLI) | payer MEDICARE, OTHER ==
[2021-10-15 11:08] LABS: CALCIUM LEVEL 9.2 MG/DL (8.8-10.2); CREATININE FOR GFR 2.03 MG/DL (0.55-1.30); GLOMERULAR FILTRATION RATE 25.9 (>45); POTASSIUM SERUM 4.6 MEQ/L (3.5-5.1)
== END ==
LOC: M LAB 09:50
PROVIDERS: ATTEND Physician Assistant
DX: I50.32 Chronic diastolic (congestive) heart failure (principal)

== ENCOUNTER → 2021-10-16 | Outpatient (POV) | payer MEDICARE, OTHER ==
[~2021-10-16] VITALS: Ht 167.6 cm; Wt 79.0 kg
[2021-10-16 10:10] VITALS: BP 159/79
== END ==
LOC: M IRPOV 10:06
PROVIDERS: ATTEND Radiology Diagnostic Radiology
DX: I70.233 Atherosclerosis of native arteries of right leg with ulceration of ankle (principal); I70.221 Atherosclerosis of native arteries of extremities with rest pain, right leg; L97.319 Non-pressure chronic ulcer of right ankle with unspecified severity; E11.51 Type 2 diabetes mellitus with diabetic peripheral angiopathy without gangrene; E78.5 Hyperlipidemia, unspecified; Z79.82 Long term (current) use of aspirin; Z79.899 Other long term (current) drug therapy; Z87.891 Personal history of nicotine dependence; Z88.1 Allergy status to other antibiotic agents; Z88.2 Allergy status to sulfonamides; Z89.421 Acquired absence of other right toe(s)

== ENCOUNTER → 2021-10-30 | Outpatient (CLI) | payer MEDICARE, OTHER ==
[~2021-10-30] MED LIST changes: +ISOVUE-370 76% 100ML VIAL As Ordered ONE
== END ==
LOC: M RAD 09:54
PROVIDERS: ATTEND Radiology Diagnostic Radiology
DX: I73.9 Peripheral vascular disease, unspecified (principal)
CPT/HCPCS: 75635; Q9967

== ENCOUNTER → 2021-10-31 | Outpatient (CLI) | payer MEDICARE, OTHER ==
[~2021-10-31] MED LIST changes: +DOXY-350 PO; -ISOVUE-370 76% 100ML VIAL As Ordered ONE; +LIDOCAINE 1% MDV 20ML VIAL As Ordered ONE; +LIDOCAINE 2% MDV 20ML VIAL As Ordered ONE; +MIDAZOLAM INJ 2MG/2ML VIAL (J2250 PER 1MG) As Ordered ONE; +NS 1,000 ML IV SCH; +PERCOCET 5MG/325MG TAB As Ordered ONE; +diphenhydrAMINE 50MG/ML VIAL (J1200) As Ordered ONE; +fentaNYL 100 MCG/2 ML INJECTION As Ordered ONE
[2021-10-31 10:32] VITALS: BP 174/74
[2021-10-31] MEDS: PERCOCET 5MG/325MG TAB PO PRN (10:32)
== END ==
LOC: M IRPRO 07:09
PROVIDERS: ATTEND Radiology Diagnostic Radiology
DX: I83.019 Varicose veins of right lower extremity with ulcer of unspecified site (principal); I83.891 Varicose veins of right lower extremity with other complications; I87.2 Venous insufficiency (chronic) (peripheral)
CPT/HCPCS: 36465; 36478; 75635; 76940; 99152; 99153; J1200; J2250; J3010; Q9967

== ENCOUNTER → 2021-11-06 | Outpatient (REF) | payer MEDICARE, OTHER ==
[~2021-11-06] MED LIST changes: -DOXY-350 PO; -LIDOCAINE 1% MDV 20ML VIAL As Ordered ONE; -LIDOCAINE 2% MDV 20ML VIAL As Ordered ONE; -MIDAZOLAM INJ 2MG/2ML VIAL (J2250 PER 1MG) As Ordered ONE; -NS 1,000 ML IV SCH; -PERCOCET 5MG/325MG TAB As Ordered ONE; -diphenhydrAMINE 50MG/ML VIAL (J1200) As Ordered ONE; -fentaNYL 100 MCG/2 ML INJECTION As Ordered ONE
== END ==
LOC: M SFHCPLAZ 12:50
PROVIDERS: ATTEND Physician Assistant
DX: R05.9 Cough, unspecified (principal)

== ENCOUNTER → 2021-11-08 | Outpatient (CLI) | payer MEDICARE, OTHER ==
[~2021-11-08] MED LIST changes: +DOXY-350 PO; +ISOVUE-300 61% 50ML VIAL As Ordered ONE; +LIDOCAINE 1% MDV 20ML VIAL As Ordered ONE; +MIDAZOLAM INJ 2MG/2ML VIAL (J2250 PER 1MG) As Ordered ONE; +NS 1,000 ML IV SCH; +diphenhydrAMINE 50MG/ML VIAL (J1200) As Ordered ONE; +fentaNYL 100 MCG/2 ML INJECTION As Ordered ONE
[2021-11-08 16:34] VITALS: BP 140/71
== END ==
LOC: M IRPRO 06:48
PROVIDERS: ATTEND Radiology Diagnostic Radiology
DX: I70.221 Atherosclerosis of native arteries of extremities with rest pain, right leg (principal); I70.239 Atherosclerosis of native arteries of right leg with ulceration of unspecified site
CPT/HCPCS: 37224; 75710; 99152; 99153; C1725; C1769; C1894; J1644; J2250; J3010; Q9967

== ENCOUNTER → 2021-12-03 | Outpatient (CLI) | payer MEDICARE, OTHER ==
[~2021-12-03] MED LIST changes: -ISOVUE-300 61% 50ML VIAL As Ordered ONE; -LIDOCAINE 1% MDV 20ML VIAL As Ordered ONE; -MIDAZOLAM INJ 2MG/2ML VIAL (J2250 PER 1MG) As Ordered ONE; -NS 1,000 ML IV SCH; -diphenhydrAMINE 50MG/ML VIAL (J1200) As Ordered ONE; -fentaNYL 100 MCG/2 ML INJECTION As Ordered ONE
== END ==
LOC: M RAD 11:31
PROVIDERS: ATTEND Radiology Diagnostic Radiology
DX: Z86.718 Personal history of other venous thrombosis and embolism (principal)

== ENCOUNTER → 2021-12-27 | Outpatient (REF) | payer MEDICARE, OTHER ==
[2021-12-28 14:32] LABS: CLOSTRIDIUM DIFFICILE PCR NEGATIVE (NEGATIVE)
[2022-01-01 02:10] LABS: H PYLORI STOOL ANTIGEN Negative (Negative)
== END ==
LOC: M SFHCPLAZ 13:21
PROVIDERS: ATTEND Physician Assistant
DX: R19.7 Diarrhea, unspecified (principal)

== ENCOUNTER → 2022-01-14 | Outpatient (CLI) | payer MEDICARE, OTHER ==
[2022-01-14 11:12] LABS: CALCIUM LEVEL 8.8 MG/DL (8.8-10.2); CREATININE FOR GFR 2.04 MG/DL (0.55-1.30); GLOMERULAR FILTRATION RATE 25.6 (>39)
== END ==
LOC: M LAB 09:37
PROVIDERS: ATTEND Physician Assistant
DX: I50.32 Chronic diastolic (congestive) heart failure (principal)

== ENCOUNTER 2022-01-22 15:29 | Emergency (ER) | payer MEDICARE, OTHER ==
[~2022-01-22] VITALS: Ht 167.6 cm; Wt 75.2 kg
[2022-01-22 16:02] LABS: HEMATOCRIT 31.6 % (36.0-47.0); HEMOGLOBIN 10.2 g/dl (12.0-15.5); MEAN CORPUSCULAR HEMOGLOBIN 30.4 pg (27.0-33.0); MEAN CORPUSCULAR HGB CONC 32.3 g/dl (32.0-36.5); MEAN CORPUSCULAR VOLUME 94.3 fl (80.0-96.0); PLATELET COUNT, AUTOMATED 141 10^3/uL (150-450); RED BLOOD COUNT 3.35 10^6/uL (4.00-5.40); WHITE BLOOD COUNT 7.9 10^3/uL (4.0-10.0)
[2022-01-22] MEDS ORDERED: KCENTRA IV ONE (16:05)
[2022-01-22] MEDS ORDERED: PROTHROMBIN COMPLEX CONCEN IV ONE (16:15)
[2022-01-22] MEDS ORDERED: DILUENT IV ONE (16:15)
[2022-01-22 16:36] LABS: RSV AMPLIFICATION NEGATIVE (NEGATIVE)
[2022-01-22 17:06] LABS: CALCIUM LEVEL 8.7 MG/DL (8.8-10.2); CREATININE FOR GFR 1.91 MG/DL (0.55-1.30); GLOMERULAR FILTRATION RATE 27.7 (>39); POTASSIUM SERUM 3.6 MEQ/L (3.5-5.1)
[2022-01-22 17:09] VITALS: BP 130/66
== END 2022-01-22 17:13 | disposition short-term general hospital (02) ==
LOC: M ED 15:29
DX: S06.6X9A Traumatic subarachnoid hemorrhage with loss of consciousness of unspecified duration, initial encounter (principal); W18.39XA Other fall on same level, initial encounter; W10.8XXA Fall (on) (from) other stairs and steps, initial encounter; R55 Syncope and collapse; Y92.018 Other place in single-family (private) house as the place of occurrence of the external cause; T45.515A Adverse effect of anticoagulants, initial encounter; E11.9 Type 2 diabetes mellitus without complications; I10 Essential (primary) hypertension; I48.91 Unspecified atrial fibrillation; I25.10 Atherosclerotic heart disease of native coronary artery without angina pectoris; E78.5 Hyperlipidemia, unspecified; Z88.1 Allergy status to other antibiotic agents; Z88.2 Allergy status to sulfonamides; Z88.8 Allergy status to other drugs, medicaments and biological substances; Z79.899 Other long term (current) drug therapy; Z79.82 Long term (current) use of aspirin; Z79.01 Long term (current) use of anticoagulants; Z79.4 Long term (current) use of insulin
CPT/HCPCS: 36415; 70450; 80048; 85027; 87631; 93005; 93041; 94760; 96374; 99285; J7168

== ENCOUNTER → 2022-01-22 | Outpatient (CLI) | payer MEDICARE, OTHER ==
[2022-01-22 15:48] LABS: HEMATOCRIT 34.4 % (36.0-47.0); HEMOGLOBIN 10.9 g/dl (12.0-15.5); MEAN CORPUSCULAR HEMOGLOBIN 30.2 pg (27.0-33.0); MEAN CORPUSCULAR HGB CONC 31.7 g/dl (32.0-36.5); MEAN CORPUSCULAR VOLUME 95.3 fl (80.0-96.0); PLATELET COUNT, AUTOMATED 168 10^3/uL (150-450); RED BLOOD COUNT 3.61 10^6/uL (4.00-5.40); WHITE BLOOD COUNT 10.7 10^3/uL (4.0-10.0)
== END ==
LOC: M PLALAB 12:48 → M PLAIMG 12:48
PROVIDERS: ATTEND Physician Assistant
DX: R55 Syncope and collapse (principal); W10.8XXA Fall (on) (from) other stairs and steps, initial encounter

== ENCOUNTER → 2022-02-01 | Outpatient (CLI) | payer MEDICARE, OTHER ==
[2022-02-01 14:37] LABS: CREATININE FOR GFR 1.41 MG/DL (0.55-1.30); GLOMERULAR FILTRATION RATE 39.3 (>39)
== END ==
LOC: M LAB 13:34
PROVIDERS: ATTEND Physician Assistant
DX: I50.32 Chronic diastolic (congestive) heart failure (principal)

== ENCOUNTER → 2022-02-12 | Outpatient (CLI) | payer MEDICARE, OTHER ==
[2022-02-12 11:54] LABS: CALCIUM LEVEL 8.7 MG/DL (8.8-10.2); CREATININE FOR GFR 1.01 MG/DL (0.55-1.30); GLOMERULAR FILTRATION RATE 57.7 (>39); MAGNESIUM LEVEL 1.7 MG/DL (1.8-2.4); POTASSIUM SERUM 3.5 MEQ/L (3.5-5.1)
== END ==
LOC: M LAB 10:27
PROVIDERS: ATTEND Physician Assistant
DX: I50.32 Chronic diastolic (congestive) heart failure (principal); I48.0 Paroxysmal atrial fibrillation

== ENCOUNTER → 2022-02-26 | Outpatient (POV) | payer MEDICARE, OTHER ==
[~2022-02-26] VITALS: Ht 167.6 cm; Wt 75.0 kg
[2022-02-26 10:05] VITALS: BP 154/69
== END ==
LOC: M IRPOV 09:52
PROVIDERS: ATTEND Radiology Diagnostic Radiology
DX: Z48.812 Encounter for surgical aftercare following surgery on the circulatory system (principal); E11.51 Type 2 diabetes mellitus with diabetic peripheral angiopathy without gangrene; L97.919 Non-pressure chronic ulcer of unspecified part of right lower leg with unspecified severity; I87.2 Venous insufficiency (chronic) (peripheral); R60.0 Localized edema; Z88.1 Allergy status to other antibiotic agents; Z88.2 Allergy status to sulfonamides; Z88.8 Allergy status to other drugs, medicaments and biological substances

== ENCOUNTER → 2022-04-03 | Outpatient (REF) | payer MEDICARE, OTHER ==
[~2022-04-03] MED LIST changes: +LEVO1TAB40 PO; -LEVO750T13 PO
[2022-04-03 18:18] LABS: PERCENT SATURATION 17.9 % (13.2-45.0)
== END ==
LOC: M LAB REF 16:57
PROVIDERS: ATTEND Internal Medicine Nephrology
DX: N28.9 Disorder of kidney and ureter, unspecified (principal); D63.1 Anemia in chronic kidney disease

== ENCOUNTER → 2022-06-07 | Outpatient (CLI) | payer MEDICARE, OTHER ==
[~2022-06-07] MED LIST changes: +COLE625T17 PO; -COLE625TAB PO; -DOXY-350 PO; +DOXY-444 PO
[2022-06-07 15:49] LABS: BASO % 0.5 % (0.0-1.0); EOS # 0.2 10^3/uL (0.0-0.5); EOS % 2.2 % (0.0-3.0); HEMATOCRIT 37.1 % (36.0-47.0); HEMOGLOBIN 11.7 g/dl (12.0-15.5); LYMPH # 1.2 10^3/uL (1.5-5.0); LYMPH % 13.5 % (24.0-44.0); MEAN CORPUSCULAR HEMOGLOBIN 28.7 pg (27.0-33.0); MEAN CORPUSCULAR HGB CONC 31.5 g/dl (32.0-36.5); MEAN CORPUSCULAR VOLUME 91.2 fl (80.0-96.0); MONO # 0.7 10^3/uL (0.0-0.8); MONO % 8.3 % (2.0-8.0); NEUTROPHILS # 6.5 10^3/uL (1.5-8.5); NEUTROPHILS % 75.2 % (36.0-66.0); PLATELET COUNT, AUTOMATED 131 10^3/uL (150-450); RED BLOOD COUNT 4.07 10^6/uL (4.00-5.40); WHITE BLOOD COUNT 8.6 10^3/uL (4.0-10.0)
[2022-06-07 16:28] LABS: ALBUMIN 3.3 GM/DL (3.2-5.2); BILIRUBIN,TOTAL 0.3 MG/DL (0.2-1.0); CREATININE FOR GFR 1.58 MG/DL (0.55-1.30); FREE T4 0.85 NG/DL (0.76-1.46); GLOMERULAR FILTRATION RATE 34.4 (>39); MAGNESIUM LEVEL 1.8 MG/DL (1.8-2.4); POTASSIUM SERUM 4.2 MEQ/L (3.5-5.1); THYROID STIMULATING HORMONE 3.23 uIU/ML (0.358-3.740); TOTAL PROTEIN 6.5 GM/DL (6.4-8.2); URIC ACID 7.8 MG/DL (2.6-6.0)
[2022-06-07 16:58] LABS: PTH INTACT 70.1 PG/ML (18.5-88.0); TOTAL 25(OH) VITAMIN D 72.4 NG/ML (30.0-100.0)
== END ==
LOC: M LAB 14:26
PROVIDERS: ATTEND Family Medicine
DX: E53.8 Deficiency of other specified B group vitamins (principal); I50.30 Unspecified diastolic (congestive) heart failure; E55.9 Vitamin D deficiency, unspecified; E78.2 Mixed hyperlipidemia; M10.9 Gout, unspecified; Z79.899 Other long term (current) drug therapy

== ENCOUNTER → 2022-09-05 | Outpatient (CLI) | payer MEDICARE, OTHER ==
[~2022-09-05] MED LIST changes: -DILA1INJ2 IV; +HYDR0.5S8 IV
== END ==
LOC: M LABSMTC 11:11
PROVIDERS: ATTEND Anesthesiology
DX: Z01.818 Encounter for other preprocedural examination (principal)

== ENCOUNTER 2022-09-10 06:45 | Day surgery (SDC) | payer MEDICARE, OTHER ==
[~2022-09-10] VITALS: Ht 167.6 cm; Wt 88.9 kg
[~2022-09-10 06:45] MED LIST changes: +NS 1,000 ML IV ONE
[2022-09-10] MEDS ORDERED: propofoL 500 MG/50 ML VIAL As Ordered ONE ×2 (07:34→08:13)
[2022-09-10] MEDS ORDERED: LIDOCAINE 2% 100MG/5ML SDV (FOR ANES.) As Ordered ONE ×2 (07:34→08:13)
[2022-09-10] MEDS ORDERED: fentaNYL 100 MCG/2 ML INJECTION As Ordered ONE ×2 (07:34→08:13)
[2022-09-10 09:15] VITALS: BP 196/85
== END 2022-09-10 09:25 | disposition home or self-care (01) ==
LOC: M OPP 06:45
PROVIDERS: ATTEND Internal Medicine Gastroenterology
DX: Z12.11 Encounter for screening for malignant neoplasm of colon (principal); Z86.010 Personal history of colon polyps; Z80.0 Family history of malignant neoplasm of digestive organs; D12.0 Benign neoplasm of cecum; D12.2 Benign neoplasm of ascending colon; D12.5 Benign neoplasm of sigmoid colon; K64.8 Other hemorrhoids; K31.89 Other diseases of stomach and duodenum; K28.4 Chronic or unspecified gastrojejunal ulcer with hemorrhage; Z98.0 Intestinal bypass and anastomosis status; Z79.01 Long term (current) use of anticoagulants; Z79.02 Long term (current) use of antithrombotics/antiplatelets; Z79.1 Long term (current) use of non-steroidal anti-inflammatories (NSAID); Z79.4 Long term (current) use of insulin; Z79.82 Long term (current) use of aspirin; Z79.899 Other long term (current) drug therapy; Z88.1 Allergy status to other antibiotic agents; Z88.2 Allergy status to sulfonamides; Z88.8 Allergy status to other drugs, medicaments and biological substances; I48.91 Unspecified atrial fibrillation; E11.9 Type 2 diabetes mellitus without complications; I50.9 Heart failure, unspecified; I11.0 Hypertensive heart disease with heart failure; Z95.0 Presence of cardiac pacemaker; Z95.4 Presence of other heart-valve replacement; Z87.891 Personal history of nicotine dependence; Z85.3 Personal history of malignant neoplasm of breast
CPT/HCPCS: 43239; 45385; 88305; J3010

== ENCOUNTER → 2022-11-16 | Outpatient (CLI) | payer MEDICARE, OTHER ==
[~2022-11-16] MED LIST changes: -NS 1,000 ML IV ONE
[2022-11-16 11:31] LABS: BASO % 0.3 % (0.0-1.0); EOS # 0.1 10^3/uL (0.0-0.5); EOS % 1.5 % (0.0-3.0); HEMATOCRIT 35.7 % (36.0-47.0); HEMOGLOBIN 11.7 g/dl (12.0-15.5); LYMPH # 1.2 10^3/uL (1.5-5.0); LYMPH % 15.8 % (24.0-44.0); MEAN CORPUSCULAR HEMOGLOBIN 29.8 pg (27.0-33.0); MEAN CORPUSCULAR HGB CONC 32.8 g/dl (32.0-36.5); MEAN CORPUSCULAR VOLUME 91.1 fl (80.0-96.0); MONO # 0.4 10^3/uL (0.0-0.8); MONO % 5.8 % (2.0-8.0); NEUTROPHILS # 5.5 10^3/uL (1.5-8.5); NEUTROPHILS % 76.2 % (36.0-66.0); PLATELET COUNT, AUTOMATED 114 10^3/uL (150-450); RED BLOOD COUNT 3.92 10^6/uL (4.00-5.40); WHITE BLOOD COUNT 7.3 10^3/uL (4.0-10.0)
[2022-11-16 11:53] LABS: HEMOGLOBIN A1c 6.6 % (4.0-6.0)
[2022-11-16 11:54] LABS: URIC ACID 2.3 MG/DL (3.1-7.8)
[2022-11-16 11:57] LABS: ALBUMIN 3.4 G/DL (3.2-5.2); BILIRUBIN,TOTAL 0.4 MG/DL (0.3-1.2); CALCIUM LEVEL 8.8 MG/DL (8.3-10.6); CHOLESTEROL RISK RATIO 3.52 (<5); CREATININE FOR GFR 1.83 MG/DL (0.55-1.30); GLOMERULAR FILTRATION RATE 29.1 (>39); HDL CHOLESTEROL 40.3 MG/DL (>40); LDL CHOLESTEROL 58.7 MG/DL (<100); NON-HDL-C 101.7 MG/DL; POTASSIUM SERUM 4.4 MMOL/L (3.5-5.1); TOTAL PROTEIN 6.2 G/DL (5.7-8.2)
[2022-11-16 11:59] LABS: FERRITIN 64.4 NG/ML (7.3-270.7); THYROID STIMULATING HORMONE 2.163 uIU/ML (0.55-4.78)
[2022-11-16 12:00] LABS: FREE T4 0.82 NG/DL (0.89-1.76)
== END ==
LOC: M LAB 11:07
PROVIDERS: ATTEND Family Medicine
DX: E11.9 Type 2 diabetes mellitus without complications (principal); M10.9 Gout, unspecified; D50.9 Iron deficiency anemia, unspecified

== ENCOUNTER → 2022-12-03 | Outpatient (REF) | payer MEDICARE, OTHER | LOC: M SFHCPLAZ 15:23 | PROVIDERS: ATTEND Family Medicine | DX: R19.7 Diarrhea, unspecified (principal) ==

== ENCOUNTER → 2023-01-09 | Outpatient (CLI) | payer MEDICARE, OTHER | LOC: M RAD 11:25 | PROVIDERS: ATTEND Physician Assistant | DX: S81.801A Unspecified open wound, right lower leg, initial encounter (principal); X58.XXXA Exposure to other specified factors, initial encounter; Y92.89 Other specified places as the place of occurrence of the external cause; Y93.89 Activity, other specified; Y99.8 Other external cause status; R68.89 Other general symptoms and signs; I70.90 Unspecified atherosclerosis ==

== ENCOUNTER → 2023-05-22 | Outpatient (REF) | payer MEDICARE, OTHER ==
[~2023-05-22] MED LIST changes: -CEFD300C41 PO; +CEFD300C42 PO
== END ==
LOC: M SFHCPLAZ 19:23
PROVIDERS: ATTEND Family Medicine
DX: K52.9 Noninfective gastroenteritis and colitis, unspecified (principal)

== ENCOUNTER → 2023-05-27 | Outpatient (CLI) | payer MEDICARE, OTHER ==
[2023-05-27 14:14] LABS: BASO % 0.4 % (0.0-1.0); EOS # 0.1 10^3/uL (0.0-0.5); EOS % 1.4 % (0.0-3.0); HEMATOCRIT 36.1 % (36.0-47.0); LYMPH # 0.9 10^3/uL (1.5-5.0); LYMPH % 15.5 % (24.0-44.0); MEAN CORPUSCULAR HEMOGLOBIN 27.2 pg (27.0-33.0); MEAN CORPUSCULAR HGB CONC 30.5 g/dl (32.0-36.5); MEAN CORPUSCULAR VOLUME 89.1 fl (80.0-96.0); MONO # 0.4 10^3/uL (0.0-0.8); MONO % 6.9 % (2.0-8.0); NEUTROPHILS # 4.3 10^3/uL (1.5-8.5); NEUTROPHILS % 75.4 % (36.0-66.0); PLATELET COUNT, AUTOMATED 164 10^3/uL (150-450); RED BLOOD COUNT 4.05 10^6/uL (4.00-5.40); WHITE BLOOD COUNT 5.6 10^3/uL (4.0-10.0)
[2023-05-27 14:41] LABS: URIC ACID 5.3 MG/DL (3.1-7.8)
[2023-05-27 14:44] LABS: ALBUMIN 2.8 G/DL (3.2-5.2); ALKALINE PHOSPHATASE 135 U/L (46-116); ALT/SGPT < 9 U/L (7.0-40); AST/SGOT 12 U/L (<34); BILIRUBIN,TOTAL 0.4 MG/DL (0.3-1.2); BLOOD UREA NITROGEN 13 MG/DL (9-23); CALCIUM LEVEL 8.5 MG/DL (8.3-10.6); CARBON DIOXIDE LEVEL 31 MMOL/L (20-31); CHLORIDE LEVEL 103 MMOL/L (98-107); CREATININE FOR GFR 1.24 MG/DL (0.55-1.30); GLOMERULAR FILTRATION RATE 45.4 (>39); GLUCOSE, FASTING 172 MG/DL (74-106); MAGNESIUM LEVEL 1.6 MG/DL (1.8-2.4); POTASSIUM SERUM 4.1 MMOL/L (3.5-5.1); SODIUM LEVEL 138 MMOL/L (136-145)
[2023-05-27 14:47] LABS: FERRITIN 75.5 NG/ML (7.3-270.7); VITAMIN B12 LEVEL 794 PG/ML (211-911)
== END ==
LOC: M LAB 13:46
PROVIDERS: ATTEND Family Medicine
DX: I50.30 Unspecified diastolic (congestive) heart failure (principal); M10.9 Gout, unspecified; D50.9 Iron deficiency anemia, unspecified; I11.0 Hypertensive heart disease with heart failure

== ENCOUNTER → 2023-06-05 | Outpatient (REF) | payer MEDICARE, OTHER ==
[~2023-06-05] MED LIST changes: +ALBU8.5H PO; +ALLO300T2 PO; +FLUT1BLS6 PO; +MAGN400T35 PO; +NYST1POW9 TOP; +TIZA2TA PO; +TRES1INJ SC
== END ==
LOC: M SFHCPLAZ 13:40
PROVIDERS: ATTEND Family Medicine
DX: Z53.9 Procedure and treatment not carried out, unspecified reason (principal)

== ENCOUNTER 2023-06-10 14:39 | Observation (INO) | payer MEDICARE, OTHER ==
[~2023-06-10] VITALS: Ht 167.6 cm; Wt 83.4 kg
[~2023-06-10 14:39] MED LIST changes: -ALBU8.5H PO; -ALLO300T2 PO; -FLUT1BLS6 PO; -MAGN400T35 PO; -NYST1POW9 TOP; -TIZA2TA PO; -TRES1INJ SC
[2023-06-10 15:47] LABS: VENOUS BASE EXCESS -2.5 (-2.0-2.0); VENOUS HCO3 24.8 MMOL/L (23.0-27.0); VENOUS O2 SATURATION 77.1 % (60.0-80.0); VENOUS PARTIAL PRESSURE CO2 54.3 mmHg (38.0-50.0); VENOUS PARTIAL PRESSURE O2 45.7 mmHg (30.0-50.0); VENOUS PH 7.278 UNITS (7.330-7.430); VENOUS TOTAL CO2 26.5 MMOL/L (24.0-28.0)
[2023-06-10 15:52] LABS: BASO % 0.3 % (0.0-1.0); EOS # 0.1 10^3/uL (0.0-0.5); EOS % 1.2 % (0.0-3.0); HEMATOCRIT 34.7 % (36.0-47.0); HEMOGLOBIN 10.8 g/dl (12.0-15.5); LYMPH % 10.6 % (24.0-44.0); MEAN CORPUSCULAR HEMOGLOBIN 27.6 pg (27.0-33.0); MEAN CORPUSCULAR HGB CONC 31.1 g/dl (32.0-36.5); MEAN CORPUSCULAR VOLUME 88.7 fl (80.0-96.0); MONO # 0.5 10^3/uL (0.0-0.8); MONO % 5.8 % (2.0-8.0); NEUTROPHILS # 7.6 10^3/uL (1.5-8.5); NEUTROPHILS % 81.7 % (36.0-66.0); PLATELET COUNT, AUTOMATED 159 10^3/uL (150-450); RED BLOOD COUNT 3.91 10^6/uL (4.00-5.40); WHITE BLOOD COUNT 9.3 10^3/uL (4.0-10.0)
[2023-06-10 16:05] LABS: INR 1.79; PROTHROMBIN TIME 20.2 SECONDS (12.5-14.5)
[2023-06-10 16:25] LABS: ALBUMIN 2.9 G/DL (3.2-5.2); ALKALINE PHOSPHATASE 114 U/L (46-116); ALT/SGPT < 9 U/L (7.0-40); AST/SGOT 12 U/L (<34); BILIRUBIN,DIRECT 0.2 MG/DL (<0.4); BILIRUBIN,TOTAL 0.6 MG/DL (0.3-1.2); BLOOD UREA NITROGEN 20 MG/DL (9-23); CALCIUM LEVEL 8.5 MG/DL (8.3-10.6); CARBON DIOXIDE LEVEL 29 MMOL/L (20-31); CHLORIDE LEVEL 101 MMOL/L (98-107); CPK CREATINE PHOSPHOKINASE 37 U/L (34-145); CREATININE FOR GFR 1.31 MG/DL (0.55-1.30); GLOMERULAR FILTRATION RATE 42.6 (>39); GLUCOSE, FASTING 141 MG/DL (74-106); POTASSIUM SERUM 4.9 MMOL/L (3.5-5.1); SODIUM LEVEL 136 MMOL/L (136-145); TOTAL PROTEIN 6.1 G/DL (5.7-8.2)
[2023-06-10 16:27] LABS: THYROXINE (T4) 8.9 UG/DL (4.5-10.9)
[2023-06-10 16:37] LABS: PROCALCITONIN 0.21 ng/ml
[2023-06-10] MEDS ORDERED: MED REC IN PROGRESS XX SCH (16:55)
[2023-06-10 17:02] LABS: ABG BASE EXCESS -1.8 (-2.0-2.0); ABG HCO3 24.2 MMOL/L (22.0-26.0); ABG O2 SATURATION 90.8 % (95.0-99.0); ABG PARTIAL PRESSURE CO2 46.6 mmHg (35.0-45.0); ABG PARTIAL PRESSURE O2 64.7 mmHg (75.0-100.0); ABG STANDARD HCO3 22.8 MMOL/L. (22.0-26.0); ABG TOTAL CO2 25.7 MMOL/L (23.0-31.0); ABG pH (ARTERIAL) 7.334 UNITS (7.350-7.450)
[2023-06-10] MEDS ORDERED: ISOVUE-370 76% 100ML VIAL As Ordered ONE (17:07)
[2023-06-10 17:31] LABS: CK-MB VALUE MASS 1.1 NG/ML (<3.6)
[2023-06-10 17:32] LABS: MB/CK RELATIVE INDEX 3.14 (< OR =4)
[2023-06-10] MEDS ORDERED: TRES1INJ SC (18:08)
[2023-06-10] MEDS ORDERED: ALLO300T2 PO (18:12)
[2023-06-10] MEDS ORDERED: ALBU8.5H PO (18:12)
[2023-06-10] MEDS ORDERED: FLUT1BLS6 PO (18:12)
[2023-06-10] MEDS ORDERED: FUROSEMIDE 100MG/10ML VIAL IV ONE (18:15)
[2023-06-10] MEDS ORDERED: NYST1POW9 TOP (18:15)
[2023-06-10] MEDS ORDERED: HOME MED LIST COMPLETE! XX SCH (18:30)
[2023-06-10] MEDS ORDERED: GLUCOSE 4GM CHEW TABLET PO PRN (18:35)
[2023-06-10] MEDS ORDERED: DEXTROSE 50% 50ML SYRINGE IV PRN (18:35)
[2023-06-10] MEDS ORDERED: GLUCAGON INJ 1MG VIAL SC PRN (18:35)
[2023-06-10 19:50] VITALS: BP 162/90; TEMP 96.7; O2SAT 95
[2023-06-10] MEDS ORDERED: GABAPENTIN 300 MG CAP PO SCH (21:00)
[2023-06-10] MEDS ORDERED: INSULIN LISPRO (NovoLOG) PER UNIT SC SCH (21:00)
[2023-06-10] MEDS ORDERED: METOCLOPRAMIDE 5 MG TAB PO SCH (21:00)
[2023-06-10] MEDS ORDERED: LEVEMIR (INSULIN DETEMIR) 1 UNITS/0.01ML SC SCH (21:00)
[2023-06-10] MEDS: INSULIN LISPRO (NovoLOG) PER UNIT SC SCH (21:28)
[2023-06-10] MEDS: DOCUSATE SODIUM 100MG CAPSULE PO SCH (21:43)
[2023-06-10] MEDS: ESCITALOPRAM OXALATE 10 MG TAB (LEXAPRO) PO SCH (21:46)
[2023-06-10] MEDS: PANTOPRAZOLE 40MG TAB (PROTONIX) PO SCH (21:47)
[2023-06-10] MEDS: allopurinoL 300 MG TAB PO SCH (21:47)
[2023-06-10] MEDS ORDERED: ALBUTEROL 90 MCG/ACT 8GM HFA INHALER INH PRN (21:50)
[2023-06-10] MEDS: SUCRALFATE 1 GM TAB PO SCH (21:52)
[2023-06-10] MEDS: COLESEVELAM 625 MG TAB (WELCHOL) PO SCH (21:52)
[2023-06-10] MEDS: APIXABAN 5 MG TAB (ELIQUIS) PO SCH (21:52)
[2023-06-10] MEDS ORDERED: amLODIPine 5 MG TAB PO ONE (22:00)
[2023-06-10] MEDS ORDERED: TIZA2TA PO (22:06)
[2023-06-11] VITALS: BP 156/82; TEMP 96.9; O2SAT 94
[2023-06-11] MEDS ORDERED: FUROSEMIDE 40MG/4ML VIAL IV SCH
[2023-06-11 00:45] LABS: CK-MB VALUE MASS 1.8 NG/ML (<3.6)
[2023-06-11 00:46] LABS: MB/CK RELATIVE INDEX 4.86 (< OR =4)
[2023-06-11 03:54] VITALS: BP 148/80; TEMP 96.8; O2SAT 94
[2023-06-11 05:18] LABS: HEMATOCRIT 33.3 % (36.0-47.0); HEMOGLOBIN 10.5 g/dl (12.0-15.5); MEAN CORPUSCULAR HEMOGLOBIN 27.6 pg (27.0-33.0); MEAN CORPUSCULAR HGB CONC 31.5 g/dl (32.0-36.5); MEAN CORPUSCULAR VOLUME 87.6 fl (80.0-96.0); PLATELET COUNT, AUTOMATED 158 10^3/uL (150-450); WHITE BLOOD COUNT 8.3 10^3/uL (4.0-10.0)
[2023-06-11 05:50] LABS: CPK CREATINE PHOSPHOKINASE 36 U/L (34-145)
[2023-06-11 05:54] LABS: BLOOD UREA NITROGEN 18 MG/DL (9-23); CALCIUM LEVEL 8.4 MG/DL (8.3-10.6); CARBON DIOXIDE LEVEL 30 MMOL/L (20-31); CHLORIDE LEVEL 98 MMOL/L (98-107); CHOLESTEROL LEVEL 117 MG/DL (<200); CHOLESTEROL RISK RATIO 4.25 (<5); CK-MB VALUE MASS < 1.0 NG/ML (<3.6); CREATININE FOR GFR 1.31 MG/DL (0.55-1.30); GLOMERULAR FILTRATION RATE 42.6 (>39); GLUCOSE, FASTING 109 MG/DL (74-106); HDL CHOLESTEROL 27.5 MG/DL (>40); LDL CHOLESTEROL 54.3 MG/DL (<100); MAGNESIUM LEVEL 1.7 MG/DL (1.8-2.4); MB/CK RELATIVE INDEX 2.77 (< OR =4); NON-HDL-C 89.5 MG/DL; POTASSIUM SERUM 4.3 MMOL/L (3.5-5.1); SODIUM LEVEL 135 MMOL/L (136-145); TRIGLYCERIDES LEVEL 176 MG/DL (<150)
[2023-06-11 06:49] LABS: HEMOGLOBIN A1c 4.9 % (4.0-6.0)
[2023-06-11] MEDS ORDERED: ADVAIR HFA 230/21MCG INHALER INH SCH (08:00)
[2023-06-11] MEDS: INSULIN LISPRO (NovoLOG) PER UNIT SC SCH ×2 (08:14→13:30)
[2023-06-11] MEDS: APIXABAN 5 MG TAB (ELIQUIS) PO SCH (08:15)
[2023-06-11] MEDS: SUCRALFATE 1 GM TAB PO SCH (08:15)
[2023-06-11] MEDS: COLESEVELAM 625 MG TAB (WELCHOL) PO SCH (08:15)
[2023-06-11] MEDS: allopurinoL 300 MG TAB PO SCH (08:15)
[2023-06-11] MEDS: PANTOPRAZOLE 40MG TAB (PROTONIX) PO SCH (08:15)
[2023-06-11 08:16] VITALS: BP 123/56
[2023-06-11] MEDS: DOCUSATE SODIUM 100MG CAPSULE PO SCH (08:16)
[2023-06-11] MEDS: ESCITALOPRAM OXALATE 10 MG TAB (LEXAPRO) PO SCH (08:16)
[2023-06-11 08:50] VITALS: BP 123/56; TEMP 96.7; O2SAT 90
[2023-06-11] MEDS ORDERED: CYANOCOBALAMIN 500 MCG TAB PO SCH (09:00)
[2023-06-11] MEDS ORDERED: SPIRONOLACTONE 25 MG TAB PO SCH (09:00)
[2023-06-11] MEDS ORDERED: METOCLOPRAMIDE 5 MG TAB PO SCH (09:00)
[2023-06-11] MEDS ORDERED: COLCHICINE 0.6 MG TABLET PO SCH (09:00)
[2023-06-11] MEDS ORDERED: ROSUVASTATIN 10 MG TAB (CRESTOR) PO SCH (09:00)
[2023-06-11] MEDS ORDERED: TORSEMIDE 10 MG TABLET PO SCH (09:00)
[2023-06-11] MEDS ORDERED: ASPIRIN 81MG ENTERIC TABLET PO SCH (09:00)
[2023-06-11] MEDS ORDERED: bisoproloL fumarate 5 MG TAB PO SCH (09:00)
[2023-06-11] MEDS ORDERED: MAG SULF 1GM/100ML (MAG RUN) 1 GM in IV 1 EA IV ONE (10:00)
[2023-06-11 11:45] VITALS: BP 134/68; TEMP 96.5; O2SAT 89
[2023-06-11 12:09] VITALS: BP 118/64
[2023-06-11 12:41] LABS: CALCIUM LEVEL 8.5 MG/DL (8.3-10.6); CREATININE FOR GFR 1.54 MG/DL (0.55-1.30); GLOMERULAR FILTRATION RATE 35.4 (>39); POTASSIUM SERUM 4.1 MMOL/L (3.5-5.1)
[2023-06-11] MEDS ORDERED: MAGN400T35 PO (14:26)
[2023-06-11] MEDS ORDERED: FERROUS SULFATE 325MG TAB PO SCH (21:00)
[2023-06-11] MEDS ORDERED: GABAPENTIN 300 MG CAP PO SCH (21:00)
== END 2023-06-11 15:21 | disposition home or self-care (01) ==
LOC: M ED 14:39 → INTOOBSV 18:27 → M ED INP 18:27 → M PCU 19:50
PROVIDERS: ADMIT Internal Medicine; ATTEND Internal Medicine
DX: T42.8X1A Poisoning by antiparkinsonism drugs and other central muscle-tone depressants, accidental (unintentional), initial encounter (principal); R53.83 Other fatigue; R40.0 Somnolence; R00.1 Bradycardia, unspecified; J44.9 Chronic obstructive pulmonary disease, unspecified; I27.81 Cor pulmonale (chronic); J90 Pleural effusion, not elsewhere classified; E04.2 Nontoxic multinodular goiter; E78.5 Hyperlipidemia, unspecified; E11.22 Type 2 diabetes mellitus with diabetic chronic kidney disease; I48.91 Unspecified atrial fibrillation; I13.0 Hypertensive heart and chronic kidney disease with heart failure and stage 1 through stage 4 chronic kidney disease, or unspecified chronic kidney disease; K21.9 Gastro-esophageal reflux disease without esophagitis; M10.9 Gout, unspecified; N18.9 Chronic kidney disease, unspecified; Z95.2 Presence of prosthetic heart valve; D50.9 Iron deficiency anemia, unspecified; E53.8 Deficiency of other specified B group vitamins; Z88.2 Allergy status to sulfonamides; Z88.8 Allergy status to other drugs, medicaments and biological substances; Z88.1 Allergy status to other antibiotic agents; Z79.899 Other long term (current) drug therapy; Z79.01 Long term (current) use of anticoagulants; Z79.82 Long term (current) use of aspirin; Z87.891 Personal history of nicotine dependence; Z98.84 Bariatric surgery status; Z82.49 Family history of ischemic heart disease and other diseases of the circulatory system; Z80.0 Family history of malignant neoplasm of digestive organs
CPT/HCPCS: 36415; 36600; 71045; 71275; 76536; 80048; 80061; 80076; 82550; 82553; 82803; 83036; 83605; 83735; 83880; 84145; 84436; 84443; 84484; 85025; 85027; 85610; 87040; 87486; 87581; 87633; 87798; 93005; 93041; 94640; 94760; 96374; 97161; 97530; 99285; G0378; J1815; J1940; J3475; Q9967

== ENCOUNTER → 2023-06-24 | Outpatient (CLI) | payer MEDICARE, OTHER ==
[~2023-06-24] MED LIST changes: +ALBU8.5H PO; +ALLO300T2 PO; +FLUT1BLS6 PO; +MAGN400T35 PO; +NYST1POW9 TOP; +TIZA2TA PO; +TRES1INJ SC
[2023-06-24 15:44] LABS: BASO % 0.5 % (0.0-1.0); EOS # 0.1 10^3/uL (0.0-0.5); EOS % 1.9 % (0.0-3.0); HEMATOCRIT 33.6 % (36.0-47.0); HEMOGLOBIN 10.2 g/dl (12.0-15.5); LYMPH # 0.9 10^3/uL (1.5-5.0); MEAN CORPUSCULAR HEMOGLOBIN 27.6 pg (27.0-33.0); MEAN CORPUSCULAR HGB CONC 30.4 g/dl (32.0-36.5); MEAN CORPUSCULAR VOLUME 91.1 fl (80.0-96.0); MONO # 0.3 10^3/uL (0.0-0.8); MONO % 5.2 % (2.0-8.0); NEUTROPHILS # 4.8 10^3/uL (1.5-8.5); NEUTROPHILS % 77.1 % (36.0-66.0); PLATELET COUNT, AUTOMATED 142 10^3/uL (150-450); RED BLOOD COUNT 3.69 10^6/uL (4.00-5.40); WHITE BLOOD COUNT 6.2 10^3/uL (4.0-10.0)
[2023-06-24 16:15] LABS: ALBUMIN 2.9 G/DL (3.2-5.2); BILIRUBIN,TOTAL 0.3 MG/DL (0.3-1.2); CALCIUM LEVEL 8.5 MG/DL (8.3-10.6); CREATININE FOR GFR 1.56 MG/DL (0.55-1.30); GLOMERULAR FILTRATION RATE 34.8 (>39); POTASSIUM SERUM 4.6 MMOL/L (3.5-5.1); TOTAL PROTEIN 6.1 G/DL (5.7-8.2)
== END ==
LOC: M LAB 15:17
PROVIDERS: ATTEND Physician Assistant Medical
DX: Z09 Encounter for follow-up examination after completed treatment for conditions other than malignant neoplasm (principal); E11.9 Type 2 diabetes mellitus without complications; I10 Essential (primary) hypertension; J90 Pleural effusion, not elsewhere classified; I27.81 Cor pulmonale (chronic); I50.32 Chronic diastolic (congestive) heart failure

== ENCOUNTER → 2023-07-17 | Outpatient (CLI) | payer MEDICARE, OTHER ==
[~2023-07-17] MED LIST changes: +CEFD1CAP9 PO; -CEFD300C42 PO; +LIDOCAINE 1% MDV 20ML VIAL As Ordered ONE
[2023-07-17 10:25] VITALS: TEMP 97.8
[2023-07-17 10:45] LABS: INR 1.48; PROTHROMBIN TIME 17.5 SECONDS (12.5-14.5)
[2023-07-17 11:15] VITALS: BP 156/73; O2SAT 97
== END ==
LOC: M IRPRO 09:53
PROVIDERS: ATTEND Physician Assistant Medical
DX: E04.2 Nontoxic multinodular goiter (principal); Z79.01 Long term (current) use of anticoagulants

== ENCOUNTER 2023-08-08 08:20 | Emergency (ER) | payer MEDICARE, OTHER ==
[~2023-08-08] VITALS: Ht 167.6 cm; Wt 85.1 kg
[~2023-08-08 08:20] MED LIST changes: -LIDOCAINE 1% MDV 20ML VIAL As Ordered ONE
[2023-08-08] MEDS ORDERED: NS 500 ML IV ONE (10:05)
[2023-08-08] MEDS ORDERED: ACETAMINOPHEN 325 MG TAB PO ONE (10:05)
[2023-08-08] MEDS ORDERED: IPRATROPIUM 0.5MG/ALBUTEROL 2.5MG INH SOL UD 3ML (DUONEB) NEB ONE (10:05)
[2023-08-08] MEDS ORDERED: methylPREDNISolone 125MG 2ML VIAL IV ONE (10:05)
[2023-08-08 11:29] LABS: BASO % 0.2 % (0.0-1.0); EOS % 0.2 % (0.0-3.0); HEMATOCRIT 31.9 % (36.0-47.0); HEMOGLOBIN 10.1 g/dl (12.0-15.5); LYMPH # 0.5 10^3/uL (1.5-5.0); LYMPH % 11.2 % (24.0-44.0); MEAN CORPUSCULAR HEMOGLOBIN 29.4 pg (27.0-33.0); MEAN CORPUSCULAR HGB CONC 31.7 g/dl (32.0-36.5); MEAN CORPUSCULAR VOLUME 92.7 fl (80.0-96.0); MONO # 0.6 10^3/uL (0.0-0.8); MONO % 14.4 % (2.0-8.0); NEUTROPHILS % 73.5 % (36.0-66.0); PLATELET COUNT, AUTOMATED 112 10^3/uL (150-450); RED BLOOD COUNT 3.44 10^6/uL (4.00-5.40); WHITE BLOOD COUNT 4.1 10^3/uL (4.0-10.0)
[2023-08-08 11:36] VITALS: O2SAT 95
[2023-08-08 11:41] LABS: INR 1.8; PROTHROMBIN TIME 20.2 SECONDS (12.5-14.5)
[2023-08-08 12:01] LABS: ALBUMIN 3.3 G/DL (3.2-5.2); BILIRUBIN,DIRECT 0.3 MG/DL (<0.4); BILIRUBIN,TOTAL 0.7 MG/DL (0.3-1.2); CALCIUM LEVEL 8.4 MG/DL (8.3-10.6); CREATININE FOR GFR 1.56 MG/DL (0.55-1.30); GLOMERULAR FILTRATION RATE 34.8 (>39); MAGNESIUM LEVEL 1.6 MG/DL (1.8-2.4); POTASSIUM SERUM 4.1 MMOL/L (3.5-5.1); TOTAL PROTEIN 6.2 G/DL (5.7-8.2)
[2023-08-08] MEDS ORDERED: OCUF0.25 OP (12:50)
[2023-08-08 13:43] VITALS: BP 159/73; TEMP 97.5; O2SAT 95
== END 2023-08-08 13:46 | disposition home or self-care (01) ==
LOC: M ED 08:20
DX: U07.1 COVID-19 (principal); H10.31 Unspecified acute conjunctivitis, right eye; I50.20 Unspecified systolic (congestive) heart failure; I12.9 Hypertensive chronic kidney disease with stage 1 through stage 4 chronic kidney disease, or unspecified chronic kidney disease; E11.9 Type 2 diabetes mellitus without complications; I48.91 Unspecified atrial fibrillation; J44.9 Chronic obstructive pulmonary disease, unspecified; G47.33 Obstructive sleep apnea (adult) (pediatric); Z86.718 Personal history of other venous thrombosis and embolism; Z95.0 Presence of cardiac pacemaker; Z85.3 Personal history of malignant neoplasm of breast; N18.30 Chronic kidney disease, stage 3 unspecified; M54.9 Dorsalgia, unspecified; F32.A Depression, unspecified; Z79.82 Long term (current) use of aspirin; Z88.2 Allergy status to sulfonamides; Z88.8 Allergy status to other drugs, medicaments and biological substances; Z99.81 Dependence on supplemental oxygen; Z79.899 Other long term (current) drug therapy; Z79.4 Long term (current) use of insulin; Z79.51 Long term (current) use of inhaled steroids
CPT/HCPCS: 70450; 71046; 80048; 80076; 83735; 83880; 85025; 85610; 87486; 87581; 87633; 87798; 93005; 94640; 96361; 96374; 99284; J2930

== ENCOUNTER → 2023-08-26 | Outpatient (REF) | payer MEDICARE, OTHER ==
[~2023-08-26] MED LIST changes: +IRBE75TA11 PO; -IRBE75TA4 PO; +OCUF0.25 OP
== END ==
LOC: M SFHCPLAZ 11:58
PROVIDERS: ATTEND Family Medicine
DX: K74.00 Hepatic fibrosis, unspecified (principal); I50.32 Chronic diastolic (congestive) heart failure; D50.9 Iron deficiency anemia, unspecified; E11.9 Type 2 diabetes mellitus without complications; I48.0 Paroxysmal atrial fibrillation

== ENCOUNTER → 2023-09-02 | Outpatient (CLI) | payer MEDICARE, OTHER | LOC: M SLEEP HO 10:49 | PROVIDERS: ATTEND Family Medicine | DX: G47.33 Obstructive sleep apnea (adult) (pediatric) (principal) ==

== ENCOUNTER → 2023-09-11 | Outpatient (CLI) | payer MEDICARE, OTHER | LOC: M PLAIMG 14:32 | PROVIDERS: ATTEND Physician Assistant | DX: I08.0 Rheumatic disorders of both mitral and aortic valves (principal); Z95.3 Presence of xenogenic heart valve; I48.91 Unspecified atrial fibrillation; I45.10 Unspecified right bundle-branch block ==

== ENCOUNTER → 2023-10-01 | Outpatient (CLI) | payer MEDICARE, OTHER ==
[~2023-10-01] MED LIST changes: -ASPI-161 PO; +ASPI-615 PO
[2023-10-01 13:01] LABS: FERRITIN 150.2 NG/ML (7.3-270.7); FREE T4 0.9 NG/DL (0.89-1.76)
[2023-10-01 13:02] LABS: ALBUMIN 2.8 G/DL (3.2-5.2); BILIRUBIN,TOTAL 0.4 MG/DL (0.3-1.2); CALCIUM LEVEL 8.4 MG/DL (8.3-10.6); CREATININE FOR GFR 1.48 MG/DL (0.55-1.30); MAGNESIUM LEVEL 1.8 MG/DL (1.8-2.4); POTASSIUM SERUM 4.6 MMOL/L (3.5-5.1); THYROID STIMULATING HORMONE 3.635 uIU/ML (0.55-4.78); TOTAL PROTEIN 5.8 G/DL (5.7-8.2)
[2023-10-01 13:10] LABS: HEMOGLOBIN A1c 5.5 % (4.0-6.0)
[2023-10-01 17:10] LABS: CREATININE, URINE 123.5 MG/DL; MAU/CREAT RATIO 100.4 MCG/MG (0.0-30.0)
== END ==
LOC: M LAB 11:16 → M PLALAB 11:16
PROVIDERS: ATTEND Family Medicine
DX: E11.9 Type 2 diabetes mellitus without complications (principal)

== ENCOUNTER → 2023-10-02 | Outpatient (REF) | payer MEDICARE, OTHER | LOC: M SFHCPLAZ 13:14 | PROVIDERS: ATTEND Family Medicine | DX: D50.9 Iron deficiency anemia, unspecified (principal); K74.00 Hepatic fibrosis, unspecified; I50.32 Chronic diastolic (congestive) heart failure; E78.2 Mixed hyperlipidemia; E55.9 Vitamin D deficiency, unspecified ==

== ENCOUNTER 2023-12-16 09:18 | Emergency (ER) | payer MEDICARE, OTHER ==
[~2023-12-16] VITALS: Ht 167.6 cm; Wt 87.8 kg
[~2023-12-16 09:18] MED LIST changes: +DOXY-440 PO; -DOXY-444 PO
[2023-12-16 12:19] LABS: BASO % 0.3 % (0.0-1.0); EOS # 0.1 10^3/uL (0.0-0.5); EOS % 1.3 % (0.0-3.0); HEMATOCRIT 34.2 % (36.0-47.0); HEMOGLOBIN 10.9 g/dl (12.0-15.5); LYMPH # 0.9 10^3/uL (1.5-5.0); LYMPH % 11.5 % (24.0-44.0); MEAN CORPUSCULAR HGB CONC 31.9 g/dl (32.0-36.5); MEAN CORPUSCULAR VOLUME 94.2 fl (80.0-96.0); MONO # 0.4 10^3/uL (0.0-0.8); MONO % 5.6 % (2.0-8.0); NEUTROPHILS % 80.9 % (36.0-66.0); PLATELET COUNT, AUTOMATED 132 10^3/uL (150-450); RED BLOOD COUNT 3.63 10^6/uL (4.00-5.40); WHITE BLOOD COUNT 7.5 10^3/uL (4.0-10.0)
[2023-12-16 12:45] LABS: CK-MB VALUE MASS < 1.0 NG/ML (<3.6)
[2023-12-16 12:47] LABS: ALBUMIN 2.6 G/DL (3.2-5.2); ALKALINE PHOSPHATASE 107 U/L (46-116); ALT/SGPT 11 U/L (7.0-40); AST/SGOT 15 U/L (<34); BILIRUBIN,DIRECT 0.3 MG/DL (<0.4); BILIRUBIN,TOTAL 0.6 MG/DL (0.3-1.2); BLOOD UREA NITROGEN 9 MG/DL (9-23); CARBON DIOXIDE LEVEL 29 MMOL/L (20-31); CHLORIDE LEVEL 106 MMOL/L (98-107); CPK CREATINE PHOSPHOKINASE 42 U/L (34-145); CREATININE FOR GFR 1.12 MG/DL (0.55-1.30); GLOMERULAR FILTRATION RATE 50.9 (>39); GLUCOSE, FASTING 115 MG/DL (74-106); MB/CK RELATIVE INDEX 2.38 (< OR =4); POTASSIUM SERUM 3.4 MMOL/L (3.5-5.1); SODIUM LEVEL 141 MMOL/L (136-145); TOTAL PROTEIN 5.7 G/DL (5.7-8.2)
[2023-12-16 12:48] LABS: THYROID STIMULATING HORMONE 1.932 uIU/ML (0.55-4.78)
[2023-12-16] MEDS: cefTRIAXone SOD 1 GM in D5W MINI-BAG PLUS 50 ML IV ONE (13:34)
[2023-12-16] MEDS: DOXYCYCLINE HYCLATE 100MG TABLET PO ONE (13:34)
[2023-12-16] MEDS ORDERED: CEFD300C PO (14:44)
[2023-12-16] MEDS ORDERED: DOXY100C82 PO (14:44)
[2023-12-16 14:58] VITALS: BP 178/82; TEMP 96.8; O2SAT 93
== END 2023-12-16 15:02 | disposition home or self-care (01) ==
LOC: M ED 09:18
DX: J18.1 Lobar pneumonia, unspecified organism (principal); I48.91 Unspecified atrial fibrillation; I12.9 Hypertensive chronic kidney disease with stage 1 through stage 4 chronic kidney disease, or unspecified chronic kidney disease; J44.9 Chronic obstructive pulmonary disease, unspecified; Z87.891 Personal history of nicotine dependence; Z79.01 Long term (current) use of anticoagulants; Z79.4 Long term (current) use of insulin; Z79.82 Long term (current) use of aspirin; Z79.899 Other long term (current) drug therapy; Z88.2 Allergy status to sulfonamides; Z88.8 Allergy status to other drugs, medicaments and biological substances
CPT/HCPCS: 71046; 80048; 80076; 82550; 82553; 84443; 84484; 85025; 87486; 87581; 87633; 87798; 93005; 96365; 99284; J0696

== ENCOUNTER 2023-12-20 13:59 | Inpatient (IN) | payer MEDICARE, OTHER ==
[~2023-12-20] VITALS: Ht 167.6 cm; Wt 81.6 kg
[~2023-12-20 13:59] MED LIST changes: +CEFD300C PO; +DOXY100C82 PO
[2023-12-20 14:56] LABS: BASO % 0.2 % (0.0-1.0); EOS # 0.1 10^3/uL (0.0-0.5); EOS % 1.5 % (0.0-3.0); HEMATOCRIT 38.4 % (36.0-47.0); HEMOGLOBIN 12.1 g/dl (12.0-15.5); LYMPH # 0.7 10^3/uL (1.5-5.0); MEAN CORPUSCULAR HEMOGLOBIN 29.8 pg (27.0-33.0); MEAN CORPUSCULAR HGB CONC 31.5 g/dl (32.0-36.5); MEAN CORPUSCULAR VOLUME 94.6 fl (80.0-96.0); MONO # 0.4 10^3/uL (0.0-0.8); MONO % 5.8 % (2.0-8.0); NEUTROPHILS # 4.9 10^3/uL (1.5-8.5); NEUTROPHILS % 80.2 % (36.0-66.0); PLATELET COUNT, AUTOMATED 119 10^3/uL (150-450); RED BLOOD COUNT 4.06 10^6/uL (4.00-5.40); WHITE BLOOD COUNT 6.1 10^3/uL (4.0-10.0)
[2023-12-20 15:22] LABS: ALBUMIN 2.8 G/DL (3.2-5.2); BILIRUBIN,DIRECT 0.2 MG/DL (<0.4); BILIRUBIN,TOTAL 0.6 MG/DL (0.3-1.2); CALCIUM LEVEL 8.3 MG/DL (8.3-10.6); CK-MB VALUE MASS 1.1 NG/ML (<3.6); CREATININE FOR GFR 1.1 MG/DL (0.55-1.30); POTASSIUM SERUM 3.3 MMOL/L (3.5-5.1); TOTAL PROTEIN 5.7 G/DL (5.7-8.2)
[2023-12-20 15:23] LABS: FREE T4 1.07 NG/DL (0.89-1.76)
[2023-12-20 15:24] LABS: THYROID STIMULATING HORMONE 2.887 uIU/ML (0.55-4.78)
[2023-12-20 15:26] LABS: MB/CK RELATIVE INDEX 2.55 (< OR =4)
[2023-12-20 15:30] LABS: INR 1.15; PARTIAL THROMBOPLASTIN TIME 28.8 SECONDS (24.8-34.2); PROTHROMBIN TIME 14.4 SECONDS (12.5-14.5)
[2023-12-20] MEDS ORDERED: ISOVUE-370 76% 100ML VIAL As Ordered ONE (16:23)
[2023-12-20 16:35] LABS: CK-MB VALUE MASS 1.2 NG/ML (<3.6)
[2023-12-20 16:40] LABS: MB/CK RELATIVE INDEX 2.72 (< OR =4)
[2023-12-20] MEDS: NITROGLYCERIN 2% OINT 1 GM *U/D* PKT TOP ONE (18:04)
[2023-12-20] MEDS: FUROSEMIDE 100MG/10ML VIAL IV ONE (18:04)
[2023-12-20 18:58] LABS: CK-MB VALUE MASS 1.2 NG/ML (<3.6)
[2023-12-20 19:01] LABS: MB/CK RELATIVE INDEX 3.07 (< OR =4)
[2023-12-20] MEDS ORDERED: DOXY-323 PO (20:32)
[2023-12-20] MEDS ORDERED: FLUT1BLS6 INH (20:33)
[2023-12-20] MEDS ORDERED: HOME MED LIST COMPLETE! XX SCH (20:40)
[2023-12-20] MEDS ORDERED: ALBUTEROL 90 MCG/ACT 8GM HFA INHALER INH PRN (20:50)
[2023-12-20] MEDS: DOXYCYCLINE HYCLATE 100MG TABLET PO SCH (22:28)
[2023-12-20] MEDS: GABAPENTIN 300 MG CAP PO SCH (22:28)
[2023-12-20] MEDS: APIXABAN 5 MG TAB (ELIQUIS) PO SCH (22:28)
[2023-12-20] MEDS: POTASSIUM CHLORIDE 10% LIQ 20MEQ/15ML UDC PO ONE (22:29)
[2023-12-20] MEDS: KCL 10MEQ/100ML SWI (KRUN) 10 MEQ in IV 1 EA IV SCH (22:29)
[2023-12-20] MEDS: CEFDINIR 300 MG CAP (OMNICEF) PO SCH (22:33)
[2023-12-20 23:32] VITALS: BP 155/69; TEMP 96.9; O2SAT 95
[2023-12-21] MEDS ORDERED: DILT30TA PO (00:23)
[2023-12-21] MEDS ORDERED: VITA500C24 PO (00:23)
[2023-12-21] MEDS ORDERED: POTA1TAB24 PO (00:23)
[2023-12-21] MEDS ORDERED: GLUCOSE 4 GM CHEW PO PRN (01:45)
[2023-12-21] MEDS ORDERED: GLUCAGON INJ 1MG VIAL SC PRN (01:45)
[2023-12-21] MEDS ORDERED: DEXTROSE 50% 50ML SYRINGE IV PRN (01:45)
[2023-12-21 04:10] VITALS: BP 133/84; TEMP 96.6; O2SAT 97
[2023-12-21] MEDS: NYSTATIN 100,000 UNITS/GM TOPICAL PWD 15GM TOP SCH (06:27)
[2023-12-21] MEDS ORDERED: INSULIN LISPRO (NovoLOG) PER UNIT SC SCH ×2 (07:30→21:00)
[2023-12-21 07:36] VITALS: BP 132/81; TEMP 96.6; O2SAT 97
[2023-12-21] MEDS: ADVAIR HFA 230/21MCG INHALER INH SCH (08:16)
[2023-12-21] MEDS: SPIRONOLACTONE 25 MG TAB PO SCH (08:55)
[2023-12-21] MEDS: ROSUVASTATIN 10 MG TAB (CRESTOR) PO SCH (08:55)
[2023-12-21] MEDS: ESCITALOPRAM OXALATE 10 MG TAB (LEXAPRO) PO SCH (08:56)
[2023-12-21] MEDS: ASPIRIN 81MG ENTERIC TABLET PO SCH (08:57)
[2023-12-21] MEDS: allopurinoL 300 MG TAB PO SCH (08:57)
[2023-12-21] MEDS: bisoproloL fumarate 5 MG TAB PO SCH (08:58)
[2023-12-21] MEDS: FUROSEMIDE 20MG/2ML VIAL IV SCH (08:58)
[2023-12-21] MEDS: PANTOPRAZOLE 40MG TAB (PROTONIX) PO SCH (08:58)
[2023-12-21] MEDS ORDERED: FUROSEMIDE 20MG/2ML VIAL IV SCH (09:00)
[2023-12-21 09:14] LABS: BASO % 0.4 % (0.0-1.0); EOS # 0.1 10^3/uL (0.0-0.5); EOS % 1.6 % (0.0-3.0); HEMATOCRIT 35.9 % (36.0-47.0); HEMOGLOBIN 11.4 g/dl (12.0-15.5); LYMPH # 0.8 10^3/uL (1.5-5.0); LYMPH % 14.4 % (24.0-44.0); MEAN CORPUSCULAR HEMOGLOBIN 30.3 pg (27.0-33.0); MEAN CORPUSCULAR HGB CONC 31.8 g/dl (32.0-36.5); MEAN CORPUSCULAR VOLUME 95.5 fl (80.0-96.0); MONO # 0.4 10^3/uL (0.0-0.8); MONO % 6.4 % (2.0-8.0); NEUTROPHILS # 4.2 10^3/uL (1.5-8.5); NEUTROPHILS % 76.8 % (36.0-66.0); PLATELET COUNT, AUTOMATED 111 10^3/uL (150-450); RED BLOOD COUNT 3.76 10^6/uL (4.00-5.40); WHITE BLOOD COUNT 5.5 10^3/uL (4.0-10.0)
[2023-12-21 09:29] LABS: CALCIUM LEVEL 8.2 MG/DL (8.3-10.6); CREATININE FOR GFR 1.02 MG/DL (0.55-1.30); GLOMERULAR FILTRATION RATE 56.7 (>39); POTASSIUM SERUM 3.8 MMOL/L (3.5-5.1)
[2023-12-21 11:53] VITALS: BP 123/59; TEMP 97.6; O2SAT 96
[2023-12-21] MEDS: MAG SULF 1GM/100ML (MAG RUN) 1 GM in IV 1 EA IV ONE (12:00)
[2023-12-21 15:48] VITALS: BP 141/60; TEMP 97; O2SAT 97
[2023-12-21 19:55] VITALS: BP 119/58; TEMP 97.5; O2SAT 96
[2023-12-21] MEDS: MAGNESIUM GLUCONATE 500 MG TAB PO SCH (20:04)
[2023-12-21 20:10] VITALS: O2SAT 93
[2023-12-22 00:10] VITALS: O2SAT 86
[2023-12-22 00:15] VITALS: BP 116/55; TEMP 97.6; O2SAT 92
[2023-12-22 00:22] VITALS: O2SAT 96
[2023-12-22 06:00] LABS: BASO % 0.3 % (0.0-1.0); EOS # 0.1 10^3/uL (0.0-0.5); HEMATOCRIT 34.7 % (36.0-47.0); LYMPH % 16.9 % (24.0-44.0); MEAN CORPUSCULAR HEMOGLOBIN 30.6 pg (27.0-33.0); MEAN CORPUSCULAR HGB CONC 31.7 g/dl (32.0-36.5); MEAN CORPUSCULAR VOLUME 96.7 fl (80.0-96.0); MONO # 0.4 10^3/uL (0.0-0.8); MONO % 6.9 % (2.0-8.0); NEUTROPHILS # 4.4 10^3/uL (1.5-8.5); NEUTROPHILS % 73.7 % (36.0-66.0); PLATELET COUNT, AUTOMATED 102 10^3/uL (150-450); RED BLOOD COUNT 3.59 10^6/uL (4.00-5.40)
[2023-12-22 06:28] LABS: CALCIUM LEVEL 7.8 MG/DL (8.3-10.6); CREATININE FOR GFR 1.4 MG/DL (0.55-1.30); GLOMERULAR FILTRATION RATE 39.4 (>39); POTASSIUM SERUM 3.9 MMOL/L (3.5-5.1)
[2023-12-22 07:56] VITALS: BP 124/62; TEMP 97.4; O2SAT 96
[2023-12-22] MEDS: FUROSEMIDE 20MG/2ML VIAL IV SCH (08:13)
[2023-12-22] MEDS: POTASSIUM CHLORIDE 10MEQ SR TABLET PO SCH (08:14)
[2023-12-22 08:15] VITALS: BP 124/62
[2023-12-22] MEDS: SUCRALFATE 1 GM TAB PO SCH (08:15)
[2023-12-22] MEDS: IPRATROPIUM 0.5MG/ALBUTEROL 2.5MG INH SOL UD 3ML (DUONEB) NEB SCH (09:41)
[2023-12-22 12:00] VITALS: BP 134/64; TEMP 97.6; O2SAT 98
[2023-12-22] MEDS ORDERED: LASI40TA9 PO (13:02)
[2023-12-22] MEDS ORDERED: FERROUS SULFATE 325MG TAB PO SCH (21:00)
== END 2023-12-22 15:03 | disposition home or self-care (01) | DRG 291 ==
LOC: M ED 13:59 → M ED INP 21:02 → M PCU 23:05
PROVIDERS: ADMIT Family Medicine; ATTEND Internal Medicine Nephrology
DX: I13.0 Hypertensive heart and chronic kidney disease with heart failure and stage 1 through stage 4 chronic kidney disease, or unspecified chronic kidney disease (principal); I50.33 Acute on chronic diastolic (congestive) heart failure; J18.9 Pneumonia, unspecified organism; J90 Pleural effusion, not elsewhere classified; J98.11 Atelectasis; I27.29 Other secondary pulmonary hypertension; E87.6 Hypokalemia; I48.91 Unspecified atrial fibrillation; J44.9 Chronic obstructive pulmonary disease, unspecified; M10.9 Gout, unspecified; E11.22 Type 2 diabetes mellitus with diabetic chronic kidney disease; F41.9 Anxiety disorder, unspecified; I50.813 Acute on chronic right heart failure; F32.A Depression, unspecified; E78.5 Hyperlipidemia, unspecified; K21.9 Gastro-esophageal reflux disease without esophagitis; E11.51 Type 2 diabetes mellitus with diabetic peripheral angiopathy without gangrene; D63.8 Anemia in other chronic diseases classified elsewhere; E61.1 Iron deficiency; E53.8 Deficiency of other specified B group vitamins; M47.816 Spondylosis without myelopathy or radiculopathy, lumbar region; H40.9 Unspecified glaucoma; K44.9 Diaphragmatic hernia without obstruction or gangrene; J32.9 Chronic sinusitis, unspecified; I27.81 Cor pulmonale (chronic); I16.0 Hypertensive urgency; Z79.01 Long term (current) use of anticoagulants; Z87.820 Personal history of traumatic brain injury; Z79.82 Long term (current) use of aspirin; Z98.84 Bariatric surgery status; Z79.4 Long term (current) use of insulin; Z79.899 Other long term (current) drug therapy; Z88.2 Allergy status to sulfonamides; Z88.8 Allergy status to other drugs, medicaments and biological substances; Z95.0 Presence of cardiac pacemaker; Z85.3 Personal history of malignant neoplasm of breast; Z90.13 Acquired absence of bilateral breasts and nipples; Z95.3 Presence of xenogenic heart valve; Z95.5 Presence of coronary angioplasty implant and graft

== ENCOUNTER 2023-12-29 12:44 | Inpatient (IN) | payer MEDICARE, OTHER ==
[~2023-12-29] VITALS: Ht 167.6 cm; Wt 78.5 kg
[~2023-12-29 12:44] MED LIST changes: +ALLO100T PO; +AMLO1TAB25 PO; +DOXY-323 PO; +FLUT1BLS6 INH; +FURO40TA2 PO; +LASI40TA9 PO; +POTA1TAB24 PO; +VITA500C24 PO
[2023-12-29 15:45] VITALS: BP 150/65; TEMP 97.1; O2SAT 91
[2023-12-29] MEDS: dilTIAZem 30 MG TAB PO SCH (16:31)
[2023-12-29] MEDS: SUCRALFATE 1 GM TAB PO SCH (18:11)
[2023-12-29] MEDS: COLESEVELAM 625 MG TAB (WELCHOL) PO SCH (18:11)
[2023-12-29 19:48] VITALS: BP 146/70; TEMP 96.8
[2023-12-29] MEDS: GABAPENTIN 300 MG CAP PO SCH (20:56)
[2023-12-30] VITALS (8 sets, daily range): BP systolic 117–143; BP diastolic 53–63; TEMP 97.2–97.6; O2SAT 40–97
[2023-12-30] MEDS: ALBUTEROL 90 MCG/ACT 8GM HFA INHALER INH PRN (00:22)
[2023-12-30 04:02] LABS: HEMOGLOBIN 9.7 g/dl (12.0-15.5); MEAN CORPUSCULAR HEMOGLOBIN 30.3 pg (27.0-33.0); MEAN CORPUSCULAR HGB CONC 31.3 g/dl (32.0-36.5); MEAN CORPUSCULAR VOLUME 96.9 fl (80.0-96.0); PLATELET COUNT, AUTOMATED 152 10^3/uL (150-450); WHITE BLOOD COUNT 9.3 10^3/uL (4.0-10.0)
[2023-12-30] MEDS: LevoFLOXacin IV 250 MG in IV 1 EA IV SCH (04:05)
[2023-12-30 04:32] LABS: CALCIUM LEVEL 8.4 MG/DL (8.3-10.6); CREATININE FOR GFR 1.62 MG/DL (0.55-1.30); GLOMERULAR FILTRATION RATE 33.3 (>39); POTASSIUM SERUM 4.5 MMOL/L (3.5-5.1)
[2023-12-30] MEDS: PANTOPRAZOLE 40MG TAB (PROTONIX) PO SCH (07:56)
[2023-12-30] MEDS: ASCORBIC ACID 500 MG TAB PO SCH (07:57)
[2023-12-30] MEDS: ASPIRIN 81MG ENTERIC TABLET PO SCH (07:57)
[2023-12-30] MEDS: ADVAIR HFA 230/21MCG INHALER INH SCH (08:00)
[2023-12-30] MEDS: SODIUM CHLORIDE HYPERTONIC 3% 4ML NEB SOL INH SCH (08:00)
[2023-12-30] MEDS: FUROSEMIDE 40MG/4ML VIAL IV SCH ×2 (08:01→16:53)
[2023-12-30] MEDS: bisoproloL fumarate 5 MG TAB PO SCH (08:01)
[2023-12-30] MEDS: ESCITALOPRAM OXALATE 10 MG TAB (LEXAPRO) PO SCH (08:02)
[2023-12-30] MEDS: SPIRONOLACTONE 25 MG TAB PO SCH (08:04)
[2023-12-30] MEDS: ROSUVASTATIN 10 MG TAB (CRESTOR) PO SCH (08:04)
[2023-12-30] MEDS: ALBUTEROL SULFATE 2.5MG/0.5ML INH NEB SOLN NEB SCH (08:12)
[2023-12-30] MEDS ORDERED: FUROSEMIDE 40 MG TAB PO SCH ×2 (09:00→17:00)
[2023-12-30 10:56] LABS: PROCALCITONIN 0.12 ng/ml
[2023-12-30] MEDS: DOCUSATE SODIUM 100MG CAPSULE PO SCH (12:22)
[2023-12-30] MEDS: APIXABAN 5 MG TAB (ELIQUIS) PO SCH (12:23)
[2023-12-31 02:30] VITALS: O2SAT 64
[2023-12-31 02:35] VITALS: O2SAT 94
[2023-12-31 02:41] VITALS: O2SAT 94
[2023-12-31 03:31] LABS: VENOUS BASE EXCESS -0.5 (-2.0-2.0); VENOUS HCO3 24.3 MMOL/L (23.0-27.0); VENOUS O2 SATURATION 98.6 % (60.0-80.0); VENOUS PARTIAL PRESSURE CO2 40.5 mmHg (38.0-50.0); VENOUS PH 7.396 UNITS (7.330-7.430); VENOUS STANDARD HCO3 24.1 MMOL/L; VENOUS TOTAL CO2 25.5 MMOL/L (24.0-28.0)
[2023-12-31 03:49] LABS: BASO % 0.3 % (0.0-1.0); EOS # 0.1 10^3/uL (0.0-0.5); EOS % 0.5 % (0.0-3.0); HEMATOCRIT 28.5 % (36.0-47.0); LYMPH # 0.8 10^3/uL (1.5-5.0); LYMPH % 7.4 % (24.0-44.0); MEAN CORPUSCULAR HEMOGLOBIN 30.6 pg (27.0-33.0); MEAN CORPUSCULAR HGB CONC 31.6 g/dl (32.0-36.5); MEAN CORPUSCULAR VOLUME 96.9 fl (80.0-96.0); MONO # 0.8 10^3/uL (0.0-0.8); MONO % 8.1 % (2.0-8.0); NEUTROPHILS # 8.5 10^3/uL (1.5-8.5); NEUTROPHILS % 83.2 % (36.0-66.0); PLATELET COUNT, AUTOMATED 127 10^3/uL (150-450); RED BLOOD COUNT 2.94 10^6/uL (4.00-5.40); WHITE BLOOD COUNT 10.2 10^3/uL (4.0-10.0)
[2023-12-31 04:00] LABS: ALBUMIN 2.7 G/DL (3.2-5.2); BILIRUBIN,TOTAL 0.6 MG/DL (0.3-1.2); CALCIUM LEVEL 8.4 MG/DL (8.3-10.6); CREATININE FOR GFR 1.72 MG/DL (0.55-1.30); MAGNESIUM LEVEL 2.1 MG/DL (1.8-2.4); POTASSIUM SERUM 3.9 MMOL/L (3.5-5.1); TOTAL PROTEIN 5.5 G/DL (5.7-8.2)
[2023-12-31 04:12] LABS: PROCALCITONIN 0.23 ng/ml
[2023-12-31 05:25] VITALS: BP 136/60; TEMP 97.3; O2SAT 93
[2023-12-31] MEDS ORDERED: LevoFLOXacin 750 MG TABLET PO SCH (06:00)
[2023-12-31] MEDS: FUROSEMIDE 40MG/4ML VIAL IV ONE (11:04)
[2023-12-31] MEDS ORDERED: BISACODYL 10MG SUPP PR PRN (11:45)
[2023-12-31 14:00] VITALS: BP 151/67; TEMP 97.1; O2SAT 94
[2023-12-31 15:49] LABS: CALCIUM LEVEL 8.6 MG/DL (8.3-10.6); CREATININE FOR GFR 1.68 MG/DL (0.55-1.30); GLOMERULAR FILTRATION RATE 31.9 (>39); POTASSIUM SERUM 4.3 MMOL/L (3.5-5.1)
[2023-12-31] MEDS: FUROSEMIDE 40MG/4ML VIAL IV SCH (17:16)
[2023-12-31 20:11] VITALS: BP 136/93; TEMP 97.5; O2SAT 98
[2023-12-31] MEDS: ACETAMINOPHEN TAB 650MG DOSE (2X325MG) PO PRN (20:14)
[2024-01-01 06:04] VITALS: BP 153/75; TEMP 98; O2SAT 96
[2024-01-01 08:14] LABS: ALBUMIN 2.5 G/DL (3.2-5.2); CALCIUM LEVEL 8.1 MG/DL (8.3-10.6); CREATININE FOR GFR 1.75 MG/DL (0.55-1.30); GLOMERULAR FILTRATION RATE 30.4 (>39); PHOSPHORUS LEVEL 4.3 MG/DL (2.4-5.1); POTASSIUM SERUM 4.2 MMOL/L (3.5-5.1)
[2024-01-01 14:00] VITALS: BP 149/65; TEMP 97.2; O2SAT 97
[2024-01-01] MEDS: FUROSEMIDE 40MG/4ML VIAL IV SCH (15:10)
[2024-01-01] MEDS ORDERED: QUEtiapine FUMARATE 12.5 MG HALF-TAB PO PRN (17:15)
[2024-01-01 20:00] VITALS: BP 140/65; TEMP 96.8; O2SAT 97
[2024-01-02 06:00] VITALS: BP 100/46; TEMP 96.9; O2SAT 97
[2024-01-02 06:51] VITALS: BP 131/76; TEMP 97.4; O2SAT 95
[2024-01-02 09:30] LABS: HEMOGLOBIN 7.8 g/dl (12.0-15.5); MEAN CORPUSCULAR HEMOGLOBIN 30.8 pg (27.0-33.0); MEAN CORPUSCULAR HGB CONC 31.2 g/dl (32.0-36.5); MEAN CORPUSCULAR VOLUME 98.8 fl (80.0-96.0); PLATELET COUNT, AUTOMATED 142 10^3/uL (150-450); RED BLOOD COUNT 2.53 10^6/uL (4.00-5.40); WHITE BLOOD COUNT 6.7 10^3/uL (4.0-10.0)
[2024-01-02 09:54] LABS: ALBUMIN 2.5 G/DL (3.2-5.2); CALCIUM LEVEL 8.6 MG/DL (8.3-10.6); CREATININE FOR GFR 1.71 MG/DL (0.55-1.30); GLOMERULAR FILTRATION RATE 31.2 (>39); PHOSPHORUS LEVEL 4.8 MG/DL (2.4-5.1); POTASSIUM SERUM 4.2 MMOL/L (3.5-5.1)
[2024-01-02 12:28] LABS: FOLATE 5.32 NG/ML (>5.4)
[2024-01-02 14:28] VITALS: BP 139/63; TEMP 97.6; O2SAT 96
[2024-01-02 20:00] VITALS: BP 145/65; TEMP 97.2; O2SAT 94
[2024-01-03] VITALS (8 sets, daily range): BP systolic 131–157; BP diastolic 59–82; TEMP 97.3–98; O2SAT 94–98
[2024-01-03 07:11] LABS: HEMATOCRIT 25.6 % (36.0-47.0); HEMOGLOBIN 7.9 g/dl (12.0-15.5); MEAN CORPUSCULAR HEMOGLOBIN 30.2 pg (27.0-33.0); MEAN CORPUSCULAR HGB CONC 30.9 g/dl (32.0-36.5); MEAN CORPUSCULAR VOLUME 97.7 fl (80.0-96.0); PLATELET COUNT, AUTOMATED 157 10^3/uL (150-450); RED BLOOD COUNT 2.62 10^6/uL (4.00-5.40); WHITE BLOOD COUNT 6.8 10^3/uL (4.0-10.0)
[2024-01-03 07:39] LABS: ALBUMIN 2.6 G/DL (3.2-5.2); CALCIUM LEVEL 8.7 MG/DL (8.3-10.6); CREATININE FOR GFR 1.88 MG/DL (0.55-1.30); PHOSPHORUS LEVEL 5.1 MG/DL (2.4-5.1); POTASSIUM SERUM 4.3 MMOL/L (3.5-5.1)
[2024-01-03] MEDS: FOLIC ACID 1MG TAB PO SCH (08:40)
[2024-01-04 06:00] VITALS: BP 151/70; TEMP 97.3; O2SAT 95
[2024-01-04 07:04] LABS: HEMATOCRIT 30.2 % (36.0-47.0); HEMOGLOBIN 9.5 g/dl (12.0-15.5); MEAN CORPUSCULAR HEMOGLOBIN 30.4 pg (27.0-33.0); MEAN CORPUSCULAR HGB CONC 31.5 g/dl (32.0-36.5); MEAN CORPUSCULAR VOLUME 96.5 fl (80.0-96.0); PLATELET COUNT, AUTOMATED 170 10^3/uL (150-450); RED BLOOD COUNT 3.13 10^6/uL (4.00-5.40); WHITE BLOOD COUNT 6.9 10^3/uL (4.0-10.0)
[2024-01-04 07:25] LABS: ALBUMIN 2.7 G/DL (3.2-5.2); CALCIUM LEVEL 8.6 MG/DL (8.3-10.6); CREATININE FOR GFR 1.71 MG/DL (0.55-1.30); GLOMERULAR FILTRATION RATE 31.2 (>39); PHOSPHORUS LEVEL 5.3 MG/DL (2.4-5.1); POTASSIUM SERUM 4.9 MMOL/L (3.5-5.1)
[2024-01-04 14:00] VITALS: BP 136/62; TEMP 97.2; O2SAT 97
[2024-01-04 20:00] VITALS: BP 145/68; TEMP 97.2; O2SAT 96
[2024-01-05 06:00] VITALS: BP 151/69; TEMP 97.2; O2SAT 94
[2024-01-05 08:01] LABS: ALBUMIN 2.8 G/DL (3.2-5.2); CALCIUM LEVEL 8.9 MG/DL (8.3-10.6); CREATININE FOR GFR 1.71 MG/DL (0.55-1.30); GLOMERULAR FILTRATION RATE 31.2 (>39); PHOSPHORUS LEVEL 4.4 MG/DL (2.4-5.1); POTASSIUM SERUM 4.7 MMOL/L (3.5-5.1)
[2024-01-05] MEDS: FUROSEMIDE 40 MG TAB PO SCH (09:44)
[2024-01-05 14:00] VITALS: BP 152/67; TEMP 97.8; O2SAT 94
[2024-01-05 20:00] VITALS: BP 147/65; TEMP 96.7; O2SAT 96
[2024-01-05 20:53] VITALS: BP 108/47; TEMP 97; O2SAT 96
[2024-01-05] MEDS: FUROSEMIDE 20 MG TAB PO ONE (21:55)
[2024-01-05 22:02] LABS: BASO % 0.3 % (0.0-1.0); EOS # 0.1 10^3/uL (0.0-0.5); EOS % 1.6 % (0.0-3.0); HEMATOCRIT 29.6 % (36.0-47.0); HEMOGLOBIN 9.1 g/dl (12.0-15.5); LYMPH # 0.8 10^3/uL (1.5-5.0); LYMPH % 9.4 % (24.0-44.0); MEAN CORPUSCULAR HGB CONC 30.7 g/dl (32.0-36.5); MEAN CORPUSCULAR VOLUME 97.7 fl (80.0-96.0); MONO # 0.6 10^3/uL (0.0-0.8); MONO % 7.9 % (2.0-8.0); NEUTROPHILS # 6.4 10^3/uL (1.5-8.5); NEUTROPHILS % 80.4 % (36.0-66.0); PLATELET COUNT, AUTOMATED 175 10^3/uL (150-450); RED BLOOD COUNT 3.03 10^6/uL (4.00-5.40)
[2024-01-05 22:05] VITALS: O2SAT 96
[2024-01-05 22:20] LABS: CK-MB VALUE MASS 1.1 NG/ML (<3.6)
[2024-01-05 22:21] LABS: ALBUMIN 2.9 G/DL (3.2-5.2); BILIRUBIN,TOTAL 0.5 MG/DL (0.3-1.2); CALCIUM LEVEL 8.6 MG/DL (8.3-10.6); CREATININE FOR GFR 1.63 MG/DL (0.55-1.30); MAGNESIUM LEVEL 2.2 MG/DL (1.8-2.4); MB/CK RELATIVE INDEX 2.44 (< OR =4); POTASSIUM SERUM 4.9 MMOL/L (3.5-5.1); TOTAL PROTEIN 6.2 G/DL (5.7-8.2)
[2024-01-06] VITALS (11 sets, daily range): BP systolic 135–156; BP diastolic 60–70; TEMP 96.8–97.4; O2SAT 66–99
[2024-01-06] MEDS: FUROSEMIDE 100MG/10ML VIAL IV SCH (10:18)
[2024-01-07 06:00] VITALS: BP 119/58; TEMP 97.6; O2SAT 91
[2024-01-07 06:42] LABS: HEMATOCRIT 29.9 % (36.0-47.0); HEMOGLOBIN 9.3 g/dl (12.0-15.5); MEAN CORPUSCULAR HEMOGLOBIN 30.4 pg (27.0-33.0); MEAN CORPUSCULAR HGB CONC 31.1 g/dl (32.0-36.5); MEAN CORPUSCULAR VOLUME 97.7 fl (80.0-96.0); PLATELET COUNT, AUTOMATED 174 10^3/uL (150-450); RED BLOOD COUNT 3.06 10^6/uL (4.00-5.40); WHITE BLOOD COUNT 7.2 10^3/uL (4.0-10.0)
[2024-01-07 07:06] LABS: CALCIUM LEVEL 8.8 MG/DL (8.3-10.6); CREATININE FOR GFR 1.63 MG/DL (0.55-1.30); MAGNESIUM LEVEL 2.2 MG/DL (1.8-2.4); POTASSIUM SERUM 4.7 MMOL/L (3.5-5.1)
[2024-01-07 11:41] VITALS: BP 144/78
[2024-01-07 13:15] LABS: THYROID STIMULATING HORMONE 2.726 uIU/ML (0.55-4.78)
[2024-01-07 13:47] LABS: C REACTIVE PROTEIN QUANTITATIV 0.6 MG/DL (<1.0)
[2024-01-07 13:55] LABS: PROCALCITONIN 0.25 ng/ml
[2024-01-07 14:00] VITALS: BP 158/69; TEMP 97; O2SAT 99
[2024-01-07 15:34] LABS: ABG BASE EXCESS 7.9 (-2.0-2.0); ABG HCO3 35.7 MMOL/L (22.0-26.0); ABG O2 SATURATION 99.2 % (95.0-99.0); ABG PARTIAL PRESSURE O2 179.5 mmHg (75.0-100.0); ABG STANDARD HCO3 31.7 MMOL/L. (22.0-26.0); ABG TOTAL CO2 37.9 MMOL/L (23.0-31.0); ABG pH (ARTERIAL) 7.315 UNITS (7.350-7.450)
[2024-01-07 15:35] LABS: ABG PARTIAL PRESSURE CO2 71.7 mmHg (35.0-45.0)
[2024-01-07 17:18] LABS: ABG BASE EXCESS 7.4 (-2.0-2.0); ABG HCO3 35.4 MMOL/L (22.0-26.0); ABG O2 SATURATION 97.1 % (95.0-99.0); ABG PARTIAL PRESSURE O2 99.7 mmHg (75.0-100.0); ABG STANDARD HCO3 31.3 MMOL/L. (22.0-26.0); ABG TOTAL CO2 37.6 MMOL/L (23.0-31.0)
[2024-01-07 20:00] VITALS: BP 136/90; TEMP 97.1; O2SAT 96
[2024-01-07] MEDS: OLANZapine 2.5MG TABLET PO SCH (20:42)
[2024-01-07] MEDS: cefTRIAXone SOD 2 GM in D5W MINI-BAG PLUS 50 ML IV SCH (21:00)
[2024-01-07] MEDS ORDERED: QUEtiapine FUMARATE 12.5 MG HALF-TAB PO SCH (21:00)
[2024-01-08 06:00] VITALS: BP 129/74; TEMP 97.2; O2SAT 98
[2024-01-08 06:44] LABS: VENOUS BASE EXCESS 8.7 (-2.0-2.0); VENOUS HCO3 36.7 MMOL/L (23.0-27.0); VENOUS PARTIAL PRESSURE CO2 72.8 mmHg (38.0-50.0); VENOUS PARTIAL PRESSURE O2 173.3 mmHg (30.0-50.0); VENOUS STANDARD HCO3 32.5 MMOL/L; VENOUS TOTAL CO2 38.9 MMOL/L (24.0-28.0)
[2024-01-08 07:11] LABS: BASO % 0.5 % (0.0-1.0); EOS # 0.1 10^3/uL (0.0-0.5); EOS % 1.3 % (0.0-3.0); HEMATOCRIT 29.4 % (36.0-47.0); HEMOGLOBIN 8.9 g/dl (12.0-15.5); LYMPH # 0.5 10^3/uL (1.5-5.0); LYMPH % 8.4 % (24.0-44.0); MEAN CORPUSCULAR HGB CONC 30.3 g/dl (32.0-36.5); MONO # 0.4 10^3/uL (0.0-0.8); MONO % 6.9 % (2.0-8.0); NEUTROPHILS # 4.9 10^3/uL (1.5-8.5); NEUTROPHILS % 82.4 % (36.0-66.0); PLATELET COUNT, AUTOMATED 157 10^3/uL (150-450); RED BLOOD COUNT 2.97 10^6/uL (4.00-5.40)
[2024-01-08 07:17] LABS: C REACTIVE PROTEIN QUANTITATIV < 0.40 MG/DL (<1.0)
[2024-01-08 07:19] LABS: ALBUMIN 2.7 G/DL (3.2-5.2); ALKALINE PHOSPHATASE 75 U/L (46-116); ALT/SGPT 29 U/L (7.0-40); AST/SGOT 18 U/L (<34); BILIRUBIN,TOTAL 0.3 MG/DL (0.3-1.2); BLOOD UREA NITROGEN 59 MG/DL (9-23); CALCIUM LEVEL 8.6 MG/DL (8.3-10.6); CARBON DIOXIDE LEVEL 38 MMOL/L (20-31); CHLORIDE LEVEL 103 MMOL/L (98-107); CREATININE FOR GFR 1.38 MG/DL (0.55-1.30); GLUCOSE, FASTING 117 MG/DL (74-106); MAGNESIUM LEVEL 2.1 MG/DL (1.8-2.4); POTASSIUM SERUM 4.4 MMOL/L (3.5-5.1); SODIUM LEVEL 143 MMOL/L (136-145); TOTAL PROTEIN 5.4 G/DL (5.7-8.2)
[2024-01-08 09:41] LABS: INR 1.6; PROTHROMBIN TIME 18.5 SECONDS (12.5-14.5)
[2024-01-08 10:49] LABS: PH BODY FLUID 7.718 UNITS (NOT ESTABLISHED); SOURCE, BODY FLUID pH PLEURAL
[2024-01-08 10:58] LABS: APPEARANCE, BODY FLUID CLOUDY (CLEAR); PLEURAL FL COLOR ORANGE (COLORLESS); SOURCE, BODY FLUID PLEURAL
[2024-01-08 11:40] LABS: SOURCE, BODY FLUID ALBUMIN PLEURAL
[2024-01-08 11:45] LABS: SOURCE, BODY FLUID GLUCOSE PLEURAL; SOURCE, BODY FLUID TRIG PLEURAL; TRIGLYCERIDE, BODY FLUID 14.99999 MG/DL (NOT ESTABLISHED)
[2024-01-08 11:46] LABS: LDH, BODY FLUID 87 U/L (NOT ESTABLISHED); SOURCE, BODY FLUID LDH PLEURAL
[2024-01-08 11:47] LABS: AMYLASE, BODY FLUID 64 U/L (NOT ESTABLISHED); CHOLESTEROL, BODY FLUID < 25 MG/DL (NOT ESTABLISHED); SOURCE, BODY FLUID AMYLASE PLEURAL; SOURCE, BODY FLUID CHOL PLEURAL; SOURCE, BODY FLUID TOT PROTEIN PLEURAL; TOTAL PROTEIN, BODY FLUID < 2.0 G/DL (NOT ESTABLISHED)
[2024-01-08 13:00] VITALS: BP 129/61
[2024-01-08 14:00] VITALS: BP 140/72; TEMP 97.7; O2SAT 99
[2024-01-08 20:00] VITALS: BP 126/56; TEMP 97.3; O2SAT 96
[2024-01-09 06:00] VITALS: BP 139/66; TEMP 97.5; O2SAT 98
[2024-01-09 07:39] LABS: VENOUS HCO3 33.8 MMOL/L (23.0-27.0); VENOUS O2 SATURATION 98.2 % (60.0-80.0); VENOUS PARTIAL PRESSURE CO2 55.2 mmHg (38.0-50.0); VENOUS PARTIAL PRESSURE O2 120.8 mmHg (30.0-50.0); VENOUS PH 7.405 UNITS (7.330-7.430); VENOUS STANDARD HCO3 31.8 MMOL/L; VENOUS TOTAL CO2 35.5 MMOL/L (24.0-28.0)
[2024-01-09 07:46] LABS: BASO % 0.2 % (0.0-1.0); EOS # 0.1 10^3/uL (0.0-0.5); EOS % 1.3 % (0.0-3.0); HEMATOCRIT 25.6 % (36.0-47.0); HEMOGLOBIN 7.9 g/dl (12.0-15.5); LYMPH # 0.9 10^3/uL (1.5-5.0); LYMPH % 14.3 % (24.0-44.0); MEAN CORPUSCULAR HEMOGLOBIN 30.2 pg (27.0-33.0); MEAN CORPUSCULAR HGB CONC 30.9 g/dl (32.0-36.5); MEAN CORPUSCULAR VOLUME 97.7 fl (80.0-96.0); MONO # 0.5 10^3/uL (0.0-0.8); MONO % 7.9 % (2.0-8.0); NEUTROPHILS # 4.5 10^3/uL (1.5-8.5); NEUTROPHILS % 75.8 % (36.0-66.0); PLATELET COUNT, AUTOMATED 138 10^3/uL (150-450); RED BLOOD COUNT 2.62 10^6/uL (4.00-5.40)
[2024-01-09 08:08] LABS: C REACTIVE PROTEIN QUANTITATIV < 0.40 MG/DL (<1.0)
[2024-01-09 08:17] LABS: ALBUMIN 2.6 G/DL (3.2-5.2); ALKALINE PHOSPHATASE 73 U/L (46-116); ALT/SGPT 26 U/L (7.0-40); AST/SGOT 21 U/L (<34); BILIRUBIN,TOTAL 0.4 MG/DL (0.3-1.2); BLOOD UREA NITROGEN 61 MG/DL (9-23); CALCIUM LEVEL 8.5 MG/DL (8.3-10.6); CARBON DIOXIDE LEVEL 38 MMOL/L (20-31); CHLORIDE LEVEL 103 MMOL/L (98-107); CREATININE FOR GFR 1.44 MG/DL (0.55-1.30); GLOMERULAR FILTRATION RATE 38.1 (>39); GLUCOSE, FASTING 120 MG/DL (74-106); MAGNESIUM LEVEL 2.1 MG/DL (1.8-2.4); POTASSIUM SERUM 4.3 MMOL/L (3.5-5.1); SODIUM LEVEL 142 MMOL/L (136-145); TOTAL PROTEIN 5.1 G/DL (5.7-8.2)
[2024-01-09] MEDS: FERRIC CARBOXYMALTOSE INJ 750 MG, VIAL MATE ADAPTER 1 EACH in NS 250 ML IV ONE (11:23)
[2024-01-09 16:32] LABS: PH BODY FLUID 7.718 UNITS (NOT ESTABLISHED); SOURCE, BODY FLUID pH PLEURAL
[2024-01-09 16:40] LABS: SOURCE, BODY FLUID GLUCOSE PLEURAL
[2024-01-09 16:41] LABS: PLEURAL FL COLOR PINK (COLORLESS); SOURCE, BODY FLUID PLEURAL
[2024-01-09 16:41] LABS: LDH, BODY FLUID 97 U/L (NOT ESTABLISHED); SOURCE, BODY FLUID LDH PLEURAL
[2024-01-09 16:42] LABS: AMYLASE, BODY FLUID 57 U/L (NOT ESTABLISHED); APPEARANCE, BODY FLUID TURBID (CLEAR); SOURCE, BODY FLUID AMYLASE PLEURAL; SOURCE, BODY FLUID TOT PROTEIN PLEURAL; TOTAL PROTEIN, BODY FLUID < 2.0 G/DL (NOT ESTABLISHED)
[2024-01-09 20:01] VITALS: BP 152/67; TEMP 97.6; O2SAT 99
[2024-01-09] MEDS: GABAPENTIN 100 MG CAP PO SCH (20:50)
[2024-01-10 06:18] VITALS: BP 144/65; TEMP 96.9; O2SAT 96
[2024-01-10 06:58] LABS: BASO % 0.1 % (0.0-1.0); EOS # 0.1 10^3/uL (0.0-0.5); EOS % 1.4 % (0.0-3.0); HEMATOCRIT 27.2 % (36.0-47.0); HEMOGLOBIN 8.3 g/dl (12.0-15.5); LYMPH # 0.6 10^3/uL (1.5-5.0); LYMPH % 8.6 % (24.0-44.0); MEAN CORPUSCULAR HGB CONC 30.5 g/dl (32.0-36.5); MEAN CORPUSCULAR VOLUME 98.2 fl (80.0-96.0); MONO # 0.5 10^3/uL (0.0-0.8); MONO % 7.7 % (2.0-8.0); NEUTROPHILS # 5.6 10^3/uL (1.5-8.5); NEUTROPHILS % 81.6 % (36.0-66.0); PLATELET COUNT, AUTOMATED 149 10^3/uL (150-450); RED BLOOD COUNT 2.77 10^6/uL (4.00-5.40); WHITE BLOOD COUNT 6.9 10^3/uL (4.0-10.0)
[2024-01-10 07:18] LABS: C REACTIVE PROTEIN QUANTITATIV 0.8 MG/DL (<1.0)
[2024-01-10 07:19] LABS: ALBUMIN 2.5 G/DL (3.2-5.2); BILIRUBIN,TOTAL 0.5 MG/DL (0.3-1.2); CALCIUM LEVEL 8.9 MG/DL (8.3-10.6); CREATININE FOR GFR 1.32 MG/DL (0.55-1.30); GLOMERULAR FILTRATION RATE 42.1 (>39); MAGNESIUM LEVEL 2.2 MG/DL (1.8-2.4); POTASSIUM SERUM 4.3 MMOL/L (3.5-5.1)
[2024-01-10] MEDS: FUROSEMIDE 100MG/10ML VIAL IV SCH (08:07)
[2024-01-10] MEDS: DARBEPOETIN 100MCG/0.5ML *NON-DIALYSIS* SYRINGE SC SCH (09:16)
[2024-01-10 11:38] VITALS: O2SAT 93
[2024-01-10] MEDS: APIXABAN 5 MG TAB (ELIQUIS) PO SCH (12:33)
[2024-01-10 14:40] VITALS: BP 141/66; TEMP 97.2; O2SAT 96
[2024-01-10 20:00] VITALS: BP 151/70; TEMP 97.6; O2SAT 95
[2024-01-11 06:00] VITALS: BP 140/63; TEMP 97.9; O2SAT 92
[2024-01-11 06:37] LABS: BASO % 0.2 % (0.0-1.0); EOS # 0.1 10^3/uL (0.0-0.5); EOS % 1.3 % (0.0-3.0); HEMATOCRIT 28.8 % (36.0-47.0); HEMOGLOBIN 8.6 g/dl (12.0-15.5); LYMPH # 0.8 10^3/uL (1.5-5.0); LYMPH % 9.1 % (24.0-44.0); MEAN CORPUSCULAR HEMOGLOBIN 29.4 pg (27.0-33.0); MEAN CORPUSCULAR HGB CONC 29.9 g/dl (32.0-36.5); MEAN CORPUSCULAR VOLUME 98.3 fl (80.0-96.0); MONO # 0.8 10^3/uL (0.0-0.8); MONO % 9.4 % (2.0-8.0); NEUTROPHILS # 6.7 10^3/uL (1.5-8.5); NEUTROPHILS % 78.7 % (36.0-66.0); PLATELET COUNT, AUTOMATED 149 10^3/uL (150-450); RED BLOOD COUNT 2.93 10^6/uL (4.00-5.40); WHITE BLOOD COUNT 8.5 10^3/uL (4.0-10.0)
[2024-01-11 07:04] LABS: C REACTIVE PROTEIN QUANTITATIV 2.9 MG/DL (<1.0)
[2024-01-11 07:06] LABS: ALBUMIN 2.6 G/DL (3.2-5.2); BILIRUBIN,TOTAL 0.6 MG/DL (0.3-1.2); CALCIUM LEVEL 8.5 MG/DL (8.3-10.6); CREATININE FOR GFR 1.47 MG/DL (0.55-1.30); GLOMERULAR FILTRATION RATE 37.2 (>39); MAGNESIUM LEVEL 2.1 MG/DL (1.8-2.4); TOTAL PROTEIN 5.2 G/DL (5.7-8.2)
[2024-01-11 08:42] VITALS: BP 144/63
[2024-01-11 15:08] VITALS: BP 139/64; TEMP 97.2; O2SAT 92
[2024-01-11] MEDS: TORSEMIDE (DEMADEX) 50 MG PER 1/2 TAB PO SCH (17:07)
[2024-01-11 20:00] VITALS: BP 139/60; TEMP 97.1; O2SAT 93
[2024-01-12 06:00] VITALS: BP 120/58; TEMP 96.7; O2SAT 97
[2024-01-12 06:49] LABS: BASO % 0.3 % (0.0-1.0); EOS # 0.1 10^3/uL (0.0-0.5); EOS % 1.9 % (0.0-3.0); HEMATOCRIT 26.1 % (36.0-47.0); LYMPH # 0.8 10^3/uL (1.5-5.0); LYMPH % 11.2 % (24.0-44.0); MEAN CORPUSCULAR HEMOGLOBIN 30.4 pg (27.0-33.0); MEAN CORPUSCULAR HGB CONC 30.7 g/dl (32.0-36.5); MEAN CORPUSCULAR VOLUME 99.2 fl (80.0-96.0); MONO # 0.5 10^3/uL (0.0-0.8); MONO % 7.2 % (2.0-8.0); NEUTROPHILS # 5.7 10^3/uL (1.5-8.5); NEUTROPHILS % 78.7 % (36.0-66.0); PLATELET COUNT, AUTOMATED 140 10^3/uL (150-450); RED BLOOD COUNT 2.63 10^6/uL (4.00-5.40); WHITE BLOOD COUNT 7.3 10^3/uL (4.0-10.0)
[2024-01-12 07:31] LABS: ALBUMIN 2.6 G/DL (3.2-5.2); BILIRUBIN,TOTAL 0.5 MG/DL (0.3-1.2); CALCIUM LEVEL 8.6 MG/DL (8.3-10.6); CREATININE FOR GFR 1.47 MG/DL (0.55-1.30); GLOMERULAR FILTRATION RATE 37.2 (>39); MAGNESIUM LEVEL 2.2 MG/DL (1.8-2.4); TOTAL PROTEIN 5.2 G/DL (5.7-8.2)
[2024-01-12] MEDS ORDERED: OLANZapine 2.5MG TABLET PO PRN (12:20)
[2024-01-12 14:00] VITALS: BP 122/60; TEMP 97.1; O2SAT 97
[2024-01-12 20:00] VITALS: BP 127/59; TEMP 98.2; O2SAT 97
[2024-01-13 06:00] VITALS: BP 110/47; TEMP 97.6; O2SAT 95
[2024-01-13 06:09] LABS: BASO % 0.1 % (0.0-1.0); EOS # 0.1 10^3/uL (0.0-0.5); EOS % 1.8 % (0.0-3.0); HEMATOCRIT 25.6 % (36.0-47.0); HEMOGLOBIN 7.8 g/dl (12.0-15.5); LYMPH # 0.9 10^3/uL (1.5-5.0); LYMPH % 11.4 % (24.0-44.0); MEAN CORPUSCULAR HEMOGLOBIN 30.8 pg (27.0-33.0); MEAN CORPUSCULAR HGB CONC 30.5 g/dl (32.0-36.5); MEAN CORPUSCULAR VOLUME 101.2 fl (80.0-96.0); MONO # 0.7 10^3/uL (0.0-0.8); MONO % 8.8 % (2.0-8.0); NEUTROPHILS # 5.9 10^3/uL (1.5-8.5); NEUTROPHILS % 77.1 % (36.0-66.0); PLATELET COUNT, AUTOMATED 141 10^3/uL (150-450); RED BLOOD COUNT 2.53 10^6/uL (4.00-5.40); WHITE BLOOD COUNT 7.7 10^3/uL (4.0-10.0)
[2024-01-13 06:40] LABS: ALBUMIN 2.5 G/DL (3.2-5.2); BILIRUBIN,TOTAL 0.4 MG/DL (0.3-1.2); CALCIUM LEVEL 8.5 MG/DL (8.3-10.6); CREATININE FOR GFR 1.61 MG/DL (0.55-1.30); GLOMERULAR FILTRATION RATE 33.5 (>39); MAGNESIUM LEVEL 2.1 MG/DL (1.8-2.4); POTASSIUM SERUM 3.8 MMOL/L (3.5-5.1); TOTAL PROTEIN 5.1 G/DL (5.7-8.2)
[2024-01-13 08:56] VITALS: BP 124/56
[2024-01-13] MEDS ORDERED: DARB10SYRN SC (10:52)
[2024-01-13] MEDS ORDERED: TORS100T PO (10:52)
[2024-01-13] MEDS ORDERED: FOLI1TAB11 PO (10:52)
[2024-01-13] MEDS ORDERED: ALBU8.5H PO (10:52)
[2024-01-13] MEDS ORDERED: DILT30TA PO (10:59)
[2024-01-13] MEDS ORDERED: ELIQ5TAB PO (10:59)
[2024-01-13] MEDS ORDERED: BISO5TAB14 PO (10:59)
== END 2024-01-13 12:20 | disposition home health service (06) | DRG 559 ==
LOC: M PM&R 15:40
PROVIDERS: ADMIT Student in an Organized Health Care Education/Training Program; ATTEND Student in an Organized Health Care Education/Training Program
PROC: 30233N1 Transfusion of Nonautologous Red Blood Cells into Peripheral Vein, Percutaneous Approach (ICD-10-PCS; principal; 2024-01-03)
PROC: 0W993ZZ Drainage of Right Pleural Cavity, Percutaneous Approach (ICD-10-PCS; 2024-01-08)
PROC: 0W9B3ZZ Drainage of Left Pleural Cavity, Percutaneous Approach (ICD-10-PCS; 2024-01-09)
DX: S02.2XXD Fracture of nasal bones, subsequent encounter for fracture with routine healing (principal); I50.33 Acute on chronic diastolic (congestive) heart failure; J98.11 Atelectasis; J95.811 Postprocedural pneumothorax; J90 Pleural effusion, not elsewhere classified; N17.9 Acute kidney failure, unspecified; I13.0 Hypertensive heart and chronic kidney disease with heart failure and stage 1 through stage 4 chronic kidney disease, or unspecified chronic kidney disease; D62 Acute posthemorrhagic anemia; Z74.1 Need for assistance with personal care; Z74.09 Other reduced mobility; N18.30 Chronic kidney disease, stage 3 unspecified; I27.81 Cor pulmonale (chronic); J44.9 Chronic obstructive pulmonary disease, unspecified; E78.5 Hyperlipidemia, unspecified; D63.8 Anemia in other chronic diseases classified elsewhere; K21.9 Gastro-esophageal reflux disease without esophagitis; I48.91 Unspecified atrial fibrillation; M47.896 Other spondylosis, lumbar region; M10.9 Gout, unspecified; I73.9 Peripheral vascular disease, unspecified; E11.22 Type 2 diabetes mellitus with diabetic chronic kidney disease; E11.51 Type 2 diabetes mellitus with diabetic peripheral angiopathy without gangrene; H40.9 Unspecified glaucoma; I50.810 Right heart failure, unspecified; K59.00 Constipation, unspecified; K44.9 Diaphragmatic hernia without obstruction or gangrene; E11.42 Type 2 diabetes mellitus with diabetic polyneuropathy; F39 Unspecified mood [affective] disorder; I49.5 Sick sinus syndrome; G47.33 Obstructive sleep apnea (adult) (pediatric); Z87.891 Personal history of nicotine dependence; Z95.2 Presence of prosthetic heart valve; Z85.3 Personal history of malignant neoplasm of breast; Z90.12 Acquired absence of left breast and nipple; Z79.01 Long term (current) use of anticoagulants; Z88.1 Allergy status to other antibiotic agents; Z88.2 Allergy status to sulfonamides; Z88.8 Allergy status to other drugs, medicaments and biological substances; Z95.0 Presence of cardiac pacemaker; Z90.49 Acquired absence of other specified parts of digestive tract

== ENCOUNTER → 2024-01-20 | Outpatient (CLI) | payer MEDICARE, OTHER ==
[~2024-01-20] MED LIST changes: +DARB10SYRN SC; +FOLI1TAB11 PO; +TORS100T PO
[2024-01-20 13:46] LABS: BASO % 0.3 % (0.0-1.0); EOS # 0.1 10^3/uL (0.0-0.5); EOS % 1.5 % (0.0-3.0); HEMOGLOBIN 9.9 g/dl (12.0-15.5); LYMPH # 0.8 10^3/uL (1.5-5.0); LYMPH % 13.1 % (24.0-44.0); MEAN CORPUSCULAR HEMOGLOBIN 31.1 pg (27.0-33.0); MEAN CORPUSCULAR HGB CONC 30.9 g/dl (32.0-36.5); MEAN CORPUSCULAR VOLUME 100.6 fl (80.0-96.0); MONO # 0.5 10^3/uL (0.0-0.8); MONO % 7.9 % (2.0-8.0); NEUTROPHILS # 4.6 10^3/uL (1.5-8.5); NEUTROPHILS % 76.7 % (36.0-66.0); PLATELET COUNT, AUTOMATED 158 10^3/uL (150-450); RED BLOOD COUNT 3.18 10^6/uL (4.00-5.40); WHITE BLOOD COUNT 5.9 10^3/uL (4.0-10.0)
[2024-01-20 14:18] LABS: FERRITIN 650.3 NG/ML (7.3-270.7)
[2024-01-20 14:19] LABS: PERCENT SATURATION 27.2 % (13.2-45.0)
[2024-01-20 14:21] LABS: ALBUMIN 2.9 G/DL (3.2-5.2); BILIRUBIN,TOTAL 0.5 MG/DL (0.3-1.2); CALCIUM LEVEL 8.4 MG/DL (8.3-10.6); CREATININE FOR GFR 1.64 MG/DL (0.55-1.30); GLOMERULAR FILTRATION RATE 32.8 (>39); POTASSIUM SERUM 3.1 MMOL/L (3.5-5.1); TOTAL PROTEIN 5.7 G/DL (5.7-8.2)
[2024-01-20 14:40] LABS: PTH INTACT 156.2 PG/ML (18.5-88.0)
== END ==
LOC: M PLALAB 12:01
PROVIDERS: ATTEND Family Medicine
DX: D50.9 Iron deficiency anemia, unspecified (principal); I50.32 Chronic diastolic (congestive) heart failure; E55.9 Vitamin D deficiency, unspecified

== ENCOUNTER → 2024-01-20 | Outpatient (REF) | payer MEDICARE, OTHER | LOC: M SFHCPLAZ 11:58 | PROVIDERS: ATTEND Family Medicine | DX: D50.9 Iron deficiency anemia, unspecified (principal); I50.32 Chronic diastolic (congestive) heart failure; E55.9 Vitamin D deficiency, unspecified ==

== ENCOUNTER → 2024-01-22 | Outpatient (CLI) | payer MEDICARE, OTHER | LOC: M PLAIMG 11:05 | PROVIDERS: ATTEND Physician Assistant Medical | DX: J98.11 Atelectasis (principal) ==

== ENCOUNTER 2024-01-31 22:14 | Emergency (ER) | payer MEDICARE, OTHER ==
[~2024-01-31] VITALS: Ht 167.6 cm; Wt 75.5 kg
[2024-01-31 23:21] VITALS: TEMP 98.8
[2024-02-01 00:01] LABS: ALBUMIN 2.9 G/DL (3.2-5.2); ALKALINE PHOSPHATASE 106 U/L (46-116); ALT/SGPT 30 U/L (7.0-40); AST/SGOT 34 U/L (<34); BILIRUBIN,DIRECT 0.1 MG/DL (<0.4); BILIRUBIN,TOTAL 0.4 MG/DL (0.3-1.2); BLOOD UREA NITROGEN 32 MG/DL (9-23); CALCIUM LEVEL 8.1 MG/DL (8.3-10.6); CARBON DIOXIDE LEVEL 31 MMOL/L (20-31); CHLORIDE LEVEL 103 MMOL/L (98-107); CK-MB VALUE MASS < 1.0 NG/ML (<3.6); CREATININE FOR GFR 1.48 MG/DL (0.55-1.30); GLOMERULAR FILTRATION RATE 36.9 (>39); GLUCOSE, FASTING 232 MG/DL (74-106); SODIUM LEVEL 139 MMOL/L (136-145); TOTAL PROTEIN 5.6 G/DL (5.7-8.2)
[2024-02-01 00:02] LABS: THYROID STIMULATING HORMONE 1.415 uIU/ML (0.55-4.78)
[2024-02-01 00:13] LABS: CPK CREATINE PHOSPHOKINASE 42 U/L (34-145); MB/CK RELATIVE INDEX 2.38 (< OR =4)
[2024-02-01 00:16] LABS: BASO % 0.2 % (0.0-1.0); EOS # 0.1 10^3/uL (0.0-0.5); EOS % 1.2 % (0.0-3.0); HEMATOCRIT 31.2 % (36.0-47.0); LYMPH # 0.7 10^3/uL (1.5-5.0); LYMPH % 12.1 % (24.0-44.0); MEAN CORPUSCULAR HEMOGLOBIN 31.5 pg (27.0-33.0); MEAN CORPUSCULAR HGB CONC 32.1 g/dl (32.0-36.5); MEAN CORPUSCULAR VOLUME 98.4 fl (80.0-96.0); MONO # 0.3 10^3/uL (0.0-0.8); MONO % 5.8 % (2.0-8.0); NEUTROPHILS # 4.6 10^3/uL (1.5-8.5); NEUTROPHILS % 80.3 % (36.0-66.0); PLATELET COUNT, AUTOMATED 109 10^3/uL (150-450); RED BLOOD COUNT 3.17 10^6/uL (4.00-5.40); WHITE BLOOD COUNT 5.7 10^3/uL (4.0-10.0)
[2024-02-01] MEDS: MECLIZINE 25 MG TABLET PO ONE (00:38)
[2024-02-01] MEDS: NS 1,000 ML IV ONE (00:38)
[2024-02-01 01:59] VITALS: O2SAT 100
[2024-02-01 02:36] VITALS: BP 111/56
[2024-02-01] MEDS ORDERED: MECL-209 PO (02:49)
== END 2024-02-01 03:26 | disposition home or self-care (01) ==
LOC: M ED 22:14
DX: H81.4 Vertigo of central origin (principal); I95.1 Orthostatic hypotension; I45.81 Long QT syndrome; I50.22 Chronic systolic (congestive) heart failure; I11.0 Hypertensive heart disease with heart failure; J44.9 Chronic obstructive pulmonary disease, unspecified; E78.5 Hyperlipidemia, unspecified; Z88.2 Allergy status to sulfonamides; Z88.8 Allergy status to other drugs, medicaments and biological substances

== ENCOUNTER → 2024-02-02 | Outpatient (REF) | payer MEDICARE, OTHER ==
[~2024-02-02] MED LIST changes: +MECL-209 PO
== END ==
LOC: M SFHCPLAZ 15:10
PROVIDERS: ATTEND Family Medicine
DX: D50.9 Iron deficiency anemia, unspecified (principal); I50.32 Chronic diastolic (congestive) heart failure; E55.9 Vitamin D deficiency, unspecified

== ENCOUNTER → 2024-02-16 | Outpatient (CLI) | payer MEDICARE, OTHER ==
[~2024-02-16] MED LIST changes: +PIPE2.2525 IV; -ZOSY1SOL4 IV
[2024-02-16 14:28] LABS: BASO % 0.1 % (0.0-1.0); EOS # 0.1 10^3/uL (0.0-0.5); EOS % 1.8 % (0.0-3.0); HEMATOCRIT 31.1 % (36.0-47.0); HEMOGLOBIN 10.1 g/dl (12.0-15.5); LYMPH # 0.9 10^3/uL (1.5-5.0); LYMPH % 12.9 % (24.0-44.0); MEAN CORPUSCULAR HEMOGLOBIN 31.3 pg (27.0-33.0); MEAN CORPUSCULAR HGB CONC 32.5 g/dl (32.0-36.5); MEAN CORPUSCULAR VOLUME 96.3 fl (80.0-96.0); MONO # 0.6 10^3/uL (0.0-0.8); MONO % 8.1 % (2.0-8.0); NEUTROPHILS # 5.2 10^3/uL (1.5-8.5); NEUTROPHILS % 76.7 % (36.0-66.0); PLATELET COUNT, AUTOMATED 152 10^3/uL (150-450); RED BLOOD COUNT 3.23 10^6/uL (4.00-5.40); WHITE BLOOD COUNT 6.8 10^3/uL (4.0-10.0)
[2024-02-16 15:05] LABS: ALBUMIN 2.7 G/DL (3.2-5.2); BILIRUBIN,TOTAL 0.5 MG/DL (0.3-1.2); CALCIUM LEVEL 8.4 MG/DL (8.3-10.6); CREATININE FOR GFR 1.72 MG/DL (0.55-1.30); MAGNESIUM LEVEL 1.5 MG/DL (1.8-2.4); PERCENT SATURATION 11.9 % (13.2-45.0); POTASSIUM SERUM 3.6 MMOL/L (3.5-5.1); TOTAL PROTEIN 5.5 G/DL (5.7-8.2)
[2024-02-16 15:06] LABS: PTH INTACT 108.4 PG/ML (18.5-88.0)
[2024-02-16 15:07] LABS: FERRITIN 199.9 NG/ML (7.3-270.7)
== END ==
LOC: M LAB 13:40
PROVIDERS: ATTEND Family Medicine
DX: D50.9 Iron deficiency anemia, unspecified (principal); I50.32 Chronic diastolic (congestive) heart failure; E55.9 Vitamin D deficiency, unspecified

== ENCOUNTER → 2024-05-03 | Outpatient (CLI) | payer MEDICARE, OTHER | LOC: M WUC 11:23 | PROVIDERS: ATTEND Student in an Organized Health Care Education/Training Program | DX: M25.562 Pain in left knee (principal); M17.12 Unilateral primary osteoarthritis, left knee ==

== ENCOUNTER → 2024-05-10 | Outpatient (CLI) | payer MEDICARE, OTHER ==
[~2024-05-10] MED LIST changes: -DOXY-323 PO; +DOXY-441 PO; +GABA-1172 PO; -GABA-282 PO
== END ==
LOC: M RAD 14:56
PROVIDERS: ATTEND Physician Assistant
DX: R10.32 Left lower quadrant pain (principal)

== ENCOUNTER → 2024-06-04 | Outpatient (CLI) | payer MEDICARE, OTHER ==
[2024-06-04 18:04] LABS: BILIRUBIN,TOTAL 0.4 MG/DL (0.3-1.2); CALCIUM LEVEL 9.3 MG/DL (8.3-10.6); CREATININE FOR GFR 1.11 MG/DL (0.55-1.30); GLOMERULAR FILTRATION RATE 51.4 (>39); PERCENT SATURATION 16.8 % (13.2-45.0); PTH INTACT 57.1 PG/ML (18.5-88.0); TOTAL PROTEIN 6.2 G/DL (5.7-8.2)
[2024-06-04 18:05] LABS: THYROID STIMULATING HORMONE 3.245 uIU/ML (0.55-4.78)
[2024-06-04 18:06] LABS: FREE T4 1.05 NG/DL (0.89-1.76)
== END ==
LOC: M LAB 16:49
PROVIDERS: ATTEND Family Medicine
DX: D50.9 Iron deficiency anemia, unspecified (principal); I50.32 Chronic diastolic (congestive) heart failure; E55.9 Vitamin D deficiency, unspecified; E78.2 Mixed hyperlipidemia

== ENCOUNTER → 2024-06-09 | Outpatient (REF) | payer MEDICARE, OTHER ==
[~2024-06-09] MED LIST changes: +ALBU8.5H INH; +GABA-284 PO; +MECL-86 PO; +NYST1POW3 TOP; -NYST1POW9 TOP; +POTA-298 PO; +ROSU20TA86 PO; +SODI325T9 PO; +VITA250T7 PO
[2024-06-09 18:26] LABS: APPEARANCE, URINE HAZY (CLEAR); BACTERIA, URINE AUTO 1+ (NEGATIVE); BILIRUBIN, URINE AUTO NEGATIVE (NEGATIVE); BLOOD, URINE BLOOD NEGATIVE (NEGATIVE); COLOR, URINE YELLOW (YELLOW); GLUCOSE, URINE (UA) AUTO NEGATIVE (NEGATIVE); KETONE, URINE AUTO NEGATIVE (NEGATIVE); LEUKOCYTE ESTERASE, URINE AUTO 1+ (NEGATIVE); NITRITE, URINE AUTO NEGATIVE (NEGATIVE); PROTEIN, URINE AUTO 1+ mg/dL (NEGATIVE); RBC, URINE AUTO 2 /HPF (0-3); SPECIFIC GRAVITY URINE AUTO 1.009 (1.002-1.035); SQUAMOUS EPITHELIAL CELL UR AU 1 /HPF (0-6); UROBILINOGEN, URINE AUTO 0.2 mg/dL (0.0-2.0); WBC, URINE AUTO 20 /HPF (0-3)
== END ==
LOC: M SFHCPLAZ 17:16
DX: R39.9 Unspecified symptoms and signs involving the genitourinary system (principal)

== ENCOUNTER 2024-06-19 11:09 | Inpatient (IN) | payer MEDICARE, OTHER ==
[~2024-06-19] VITALS: Ht 167.6 cm; Wt 77.6 kg
[~2024-06-19 11:09] MED LIST changes: -ALBU8.5H INH; -GABA-284 PO; -MECL-86 PO; -POTA-298 PO; -ROSU20TA86 PO; -SODI325T9 PO; -VITA250T7 PO
[2024-06-19 12:04] LABS: BASO # 0.1 10^3/uL (0.0-0.2); BASO % 0.5 % (0.0-1.0); EOS # 0.1 10^3/uL (0.0-0.5); EOS % 0.6 % (0.0-3.0); HEMATOCRIT 41.8 % (36.0-47.0); HEMOGLOBIN 13.2 g/dl (12.0-15.5); LYMPH # 1.4 10^3/uL (1.5-5.0); LYMPH % 12.8 % (24.0-44.0); MEAN CORPUSCULAR HEMOGLOBIN 30.6 pg (27.0-33.0); MEAN CORPUSCULAR HGB CONC 31.6 g/dl (32.0-36.5); MEAN CORPUSCULAR VOLUME 96.8 fl (80.0-96.0); MONO # 0.8 10^3/uL (0.0-0.8); MONO % 6.8 % (2.0-8.0); NEUTROPHILS # 8.6 10^3/uL (1.5-8.5); NEUTROPHILS % 78.8 % (36.0-66.0); PLATELET COUNT, AUTOMATED 204 10^3/uL (150-450); RED BLOOD COUNT 4.32 10^6/uL (4.00-5.40)
[2024-06-19 12:57] LABS: ALBUMIN 3.6 G/DL (3.2-5.2); BILIRUBIN,DIRECT 0.1 MG/DL (<0.4); BILIRUBIN,TOTAL 0.3 MG/DL (0.3-1.2); CK-MB VALUE MASS 1.3 NG/ML (<3.6); CREATININE FOR GFR 1.69 MG/DL (0.55-1.30); GLOMERULAR FILTRATION RATE 31.7 (>39); MB/CK RELATIVE INDEX 3.71 (< OR =4); POTASSIUM SERUM 7.4 MMOL/L (3.5-5.1); TOTAL PROTEIN 7.7 G/DL (5.7-8.2)
[2024-06-19] MEDS: CALCIUM GLUCONATE 1,000 MG in DEXTROSE 5% (D5W) MINI-BAG PLU 100 ML IV ONE ×4 (13:22→21:46)
[2024-06-19] MEDS: FUROSEMIDE 40MG/4ML VIAL IV ONE ×2 (13:23→15:34)
[2024-06-19] MEDS: HumuLIN R (REGULAR) INSULIN (NovoLIN R) **100U/ML** PER UNIT IV ONE (13:24)
[2024-06-19] MEDS: DEXTROSE 50% 50ML SYRINGE IV STA (13:24)
[2024-06-19] MEDS ORDERED: HEPARIN SOD (PORCINE) 5000UNITS/ML 1ML VIAL/SYRINGE SC SCH (13:40)
[2024-06-19 13:45] LABS: CK-MB VALUE MASS 1.4 NG/ML (<3.6)
[2024-06-19] MEDS: PATIROMER SORBITEX CALCIUM 8.4 GM POWDER PACKET (VELTASSA) PO ONE ×2 (13:45→20:07)
[2024-06-19 13:47] LABS: MB/CK RELATIVE INDEX 3.68 (< OR =4)
[2024-06-19] MEDS: ALBUTEROL SULFATE 2.5MG/0.5ML INH NEB SOLN NEB STA (14:08)
[2024-06-19] MEDS ORDERED: ROSU20TA86 PO (14:09)
[2024-06-19] MEDS ORDERED: VITA250T7 PO (14:09)
[2024-06-19] MEDS ORDERED: MECL-86 PO (14:09)
[2024-06-19] MEDS ORDERED: TORS100T PO (14:09)
[2024-06-19] MEDS ORDERED: ALBU8.5H INH (14:09)
[2024-06-19] MEDS ORDERED: POTA-298 PO (14:09)
[2024-06-19] MEDS ORDERED: FOLI1TAB11 PO (14:09)
[2024-06-19] MEDS ORDERED: GABA-284 PO (14:09)
[2024-06-19] MEDS ORDERED: HOME MED LIST COMPLETE! XX SCH (14:10)
[2024-06-19] MEDS ORDERED: ALBUTEROL 90 MCG/ACT 8GM HFA INHALER INH PRN (14:10)
[2024-06-19 14:47] VITALS: BP 165/75; TEMP 96.9; O2SAT 100
[2024-06-19 15:19] LABS: CREATININE FOR GFR 1.74 MG/DL (0.55-1.30); GLOMERULAR FILTRATION RATE 30.6 (>39); POTASSIUM SERUM 6.8 MMOL/L (3.5-5.1)
[2024-06-19] MEDS: SODIUM BICARBONATE 150 MEQ in D5W 1,000 ML IV SCH ×2 (15:34→20:07)
[2024-06-19 16:00] VITALS: BP 176/78; TEMP 96.8; O2SAT 98
[2024-06-19] MEDS ORDERED: FUROSEMIDE 40MG/4ML VIAL IV ONE (16:00)
[2024-06-19 18:47] LABS: CALCIUM LEVEL 10.6 MG/DL (8.3-10.6); CREATININE FOR GFR 1.91 MG/DL (0.55-1.30); GLOMERULAR FILTRATION RATE 27.5 (>39); POTASSIUM SERUM 7.8 MMOL/L (3.5-5.1)
[2024-06-19] MEDS ORDERED: SODIUM BICARBONATE 150 MEQ in D5W 1,000 ML IV STA (18:51)
[2024-06-19] MEDS: ALBUTEROL SULFATE 2.5MG/0.5ML INH NEB SOLN NEB ONE (19:31)
[2024-06-19] MEDS: SYMBICORT 80/4.5MCG INHALER 6GM INH SCH (19:32)
[2024-06-19] MEDS: FUROSEMIDE 100MG/10ML VIAL IV ONE (20:05)
[2024-06-19 20:15] LABS: VENOUS BASE EXCESS -13.6 (-2.0-2.0); VENOUS HCO3 14.4 MMOL/L (23.0-27.0); VENOUS O2 SATURATION 88.3 % (60.0-80.0); VENOUS PARTIAL PRESSURE CO2 40.8 mmHg (38.0-50.0); VENOUS PARTIAL PRESSURE O2 59.9 mmHg (30.0-50.0); VENOUS PH 7.165 UNITS (7.330-7.430); VENOUS STANDARD HCO3 13.9 MMOL/L; VENOUS TOTAL CO2 15.6 MMOL/L (24.0-28.0)
[2024-06-19] MEDS: CHLOROTHIAZIDE 500MG VIAL IV ONE (20:27)
[2024-06-19 21:00] VITALS: BP 167/74; PULSE 113; O2SAT 98
[2024-06-19] MEDS: SODIUM BICARBONATE 8.4% INJ 50ML SYRINGE IV STA ×2 (21:25→21:28)
[2024-06-19] MEDS: HumuLIN R (REGULAR) INSULIN (NovoLIN R) **100U/ML** PER UNIT IV STA (21:46)
[2024-06-19] MEDS: GABAPENTIN 400MG CAP PO SCH (21:46)
[2024-06-19] MEDS: MECLIZINE 25 MG TABLET PO SCH (21:46)
[2024-06-19] MEDS: dilTIAZem 30 MG TAB PO SCH (21:47)
[2024-06-19] MEDS: APIXABAN 5 MG TAB (ELIQUIS) PO SCH (21:47)
[2024-06-19] MEDS: SUCRALFATE 1 GM TAB PO SCH (21:47)
[2024-06-19 21:52] LABS: CALCIUM LEVEL 9.6 MG/DL (8.3-10.6); CREATININE FOR GFR 1.88 MG/DL (0.55-1.30); POTASSIUM SERUM 6.5 MMOL/L (3.5-5.1)
[2024-06-19] MEDS: SODIUM BICARBONATE 325 MG TAB PO SCH (22:34)
[2024-06-19 23:38] VITALS: BP 135/61; TEMP 98.4; O2SAT 94
[2024-06-19 23:40] LABS: CALCIUM LEVEL 9.8 MG/DL (8.3-10.6); CREATININE FOR GFR 1.83 MG/DL (0.55-1.30); GLOMERULAR FILTRATION RATE 28.9 (>39)
[2024-06-20 01:38] LABS: CALCIUM LEVEL 10.4 MG/DL (8.3-10.6); CREATININE FOR GFR 1.84 MG/DL (0.55-1.30); GLOMERULAR FILTRATION RATE 28.7 (>39); POTASSIUM SERUM 4.9 MMOL/L (3.5-5.1)
[2024-06-20 03:52] VITALS: BP_SYST 102; BP_SYST 110; BP_DIAS 56; BP_DIAS 60; TEMP 98.2; O2SAT 96
[2024-06-20 06:22] LABS: HEMOGLOBIN 11.7 g/dl (12.0-15.5); MEAN CORPUSCULAR HEMOGLOBIN 30.5 pg (27.0-33.0); MEAN CORPUSCULAR HGB CONC 33.4 g/dl (32.0-36.5); MEAN CORPUSCULAR VOLUME 91.4 fl (80.0-96.0); PLATELET COUNT, AUTOMATED 147 10^3/uL (150-450); RED BLOOD COUNT 3.83 10^6/uL (4.00-5.40); WHITE BLOOD COUNT 9.4 10^3/uL (4.0-10.0)
[2024-06-20 06:50] LABS: CALCIUM LEVEL 10.4 MG/DL (8.3-10.6); CREATININE FOR GFR 1.9 MG/DL (0.55-1.30); GLOMERULAR FILTRATION RATE 27.7 (>39); POTASSIUM SERUM 5.9 MMOL/L (3.5-5.1)
[2024-06-20] MEDS: CALCIUM GLUCONATE 1,000 MG in DEXTROSE 5% (D5W) MINI-BAG PLU 100 ML IV ONE (07:27)
[2024-06-20 08:00] VITALS: BP 148/63; TEMP 98.2; O2SAT 97
[2024-06-20] MEDS: CYANOCOBALAMIN 250 MCG TABLET PO SCH (08:48)
[2024-06-20] MEDS: ESCITALOPRAM OXALATE 10 MG TAB (LEXAPRO) PO SCH (08:48)
[2024-06-20] MEDS: FOLIC ACID 1MG TAB PO SCH (08:49)
[2024-06-20] MEDS: ROSUVASTATIN 10 MG TAB (CRESTOR) PO SCH (08:49)
[2024-06-20] MEDS: bisoproloL fumarate 5 MG TAB PO SCH (08:49)
[2024-06-20] MEDS: ASPIRIN 81MG ENTERIC TABLET PO SCH (08:49)
[2024-06-20] MEDS: PANTOPRAZOLE 40MG TAB (PROTONIX) PO SCH (08:49)
[2024-06-20 09:52] LABS: CALCIUM LEVEL 10.1 MG/DL (8.3-10.6); CREATININE FOR GFR 1.87 MG/DL (0.55-1.30); GLOMERULAR FILTRATION RATE 28.2 (>39); POTASSIUM SERUM 6.5 MMOL/L (3.5-5.1)
[2024-06-20] MEDS: PATIROMER SORBITEX CALCIUM 8.4 GM POWDER PACKET (VELTASSA) PO ONE ×2 (10:13→18:21)
[2024-06-20 11:46] VITALS: BP 110/52; TEMP 98.8; O2SAT 95
[2024-06-20] MEDS: PATIROMER SORBITEX CALCIUM 8.4 GM POWDER PACKET (VELTASSA) PO SCH (12:11)
[2024-06-20 14:56] LABS: CALCIUM LEVEL 9.8 MG/DL (8.3-10.6); GLOMERULAR FILTRATION RATE 26.1 (>39); POTASSIUM SERUM 5.8 MMOL/L (3.5-5.1)
[2024-06-20] MEDS: SODIUM BICARBONATE 325 MG TAB PO SCH (15:26)
[2024-06-20 15:57] VITALS: BP 149/63; TEMP 98.2; O2SAT 97
[2024-06-20 19:23] VITALS: BP 130/56; TEMP 97.5; O2SAT 93
[2024-06-20 20:36] LABS: CALCIUM LEVEL 9.4 MG/DL (8.3-10.6); CREATININE FOR GFR 2.06 MG/DL (0.55-1.30); GLOMERULAR FILTRATION RATE 25.2 (>39); POTASSIUM SERUM 5.5 MMOL/L (3.5-5.1)
[2024-06-21 00:06] VITALS: BP 147/67; TEMP 98.2; O2SAT 93
[2024-06-21 02:31] LABS: CREATININE FOR GFR 1.86 MG/DL (0.55-1.30); GLOMERULAR FILTRATION RATE 28.4 (>39)
[2024-06-21 03:36] VITALS: BP 136/63; TEMP 98.1; O2SAT 93
[2024-06-21 08:18] VITALS: BP 132/62; TEMP 98.4; O2SAT 95
[2024-06-21 09:06] LABS: CREATININE FOR GFR 1.87 MG/DL (0.55-1.30); GLOMERULAR FILTRATION RATE 28.2 (>39); POTASSIUM SERUM 4.8 MMOL/L (3.5-5.1)
[2024-06-21] MEDS: TOLVAPTAN 7.5 MG HALF-TAB PO ONE (11:19)
[2024-06-21 11:58] VITALS: BP 131/60; TEMP 98.3; O2SAT 94
[2024-06-21 13:26] LABS: APPEARANCE, URINE CLOUDY (CLEAR); BACTERIA, URINE AUTO 1+ (NEGATIVE); BILIRUBIN, URINE AUTO NEGATIVE (NEGATIVE); BLOOD, URINE BLOOD 3+ (NEGATIVE); COLOR, URINE YELLOW (YELLOW); GLUCOSE, URINE (UA) AUTO NEGATIVE (NEGATIVE); KETONE, URINE AUTO NEGATIVE (NEGATIVE); LEUKOCYTE ESTERASE, URINE AUTO 1+ (NEGATIVE); MUCUS, URINE SMALL (NEGATIVE); NITRITE, URINE AUTO NEGATIVE (NEGATIVE); PROTEIN, URINE AUTO 2+ mg/dL (NEGATIVE); RBC, URINE AUTO 120 /HPF (0-3); SPECIFIC GRAVITY URINE AUTO 1.009 (1.002-1.035); SQUAMOUS EPITHELIAL CELL UR AU 0 /HPF (0-6); UROBILINOGEN, URINE AUTO 0.2 mg/dL (0.0-2.0); WBC, URINE AUTO 9 /HPF (0-3)
[2024-06-21 15:56] VITALS: BP 150/66; TEMP 98.1; O2SAT 96
[2024-06-21 18:35] LABS: ALBUMIN 2.8 G/DL (3.2-5.2); CALCIUM LEVEL 8.5 MG/DL (8.3-10.6); CREATININE FOR GFR 1.79 MG/DL (0.55-1.30); GLOMERULAR FILTRATION RATE 29.6 (>39); PHOSPHORUS LEVEL 5.4 MG/DL (2.4-5.1); POTASSIUM SERUM 5.1 MMOL/L (3.5-5.1)
[2024-06-21 19:30] VITALS: BP 134/72; TEMP 98.6; O2SAT 96
[2024-06-21 22:49] LABS: CALCIUM LEVEL 8.4 MG/DL (8.3-10.6); CREATININE FOR GFR 1.77 MG/DL (0.55-1.30)
[2024-06-22 00:15] VITALS: BP 140/58; TEMP 97.3; O2SAT 93
[2024-06-22 04:42] VITALS: BP 138/64; TEMP 97.3; O2SAT 95
[2024-06-22 06:40] LABS: ALBUMIN 2.9 G/DL (3.2-5.2); CALCIUM LEVEL 8.4 MG/DL (8.3-10.6); CREATININE FOR GFR 1.68 MG/DL (0.55-1.30); GLOMERULAR FILTRATION RATE 31.9 (>39); PHOSPHORUS LEVEL 4.9 MG/DL (2.4-5.1); POTASSIUM SERUM 4.5 MMOL/L (3.5-5.1)
[2024-06-22 07:25] LABS: BASO % 0.4 % (0.0-1.0); EOS # 0.1 10^3/uL (0.0-0.5); EOS % 1.6 % (0.0-3.0); HEMATOCRIT 30.9 % (36.0-47.0); HEMOGLOBIN 10.6 g/dl (12.0-15.5); LYMPH # 1.4 10^3/uL (1.5-5.0); LYMPH % 18.1 % (24.0-44.0); MEAN CORPUSCULAR HEMOGLOBIN 30.9 pg (27.0-33.0); MEAN CORPUSCULAR HGB CONC 34.3 g/dl (32.0-36.5); MEAN CORPUSCULAR VOLUME 90.1 fl (80.0-96.0); MONO # 0.8 10^3/uL (0.0-0.8); MONO % 10.4 % (2.0-8.0); NEUTROPHILS # 5.3 10^3/uL (1.5-8.5); NEUTROPHILS % 69.1 % (36.0-66.0); PLATELET COUNT, AUTOMATED 121 10^3/uL (150-450); RED BLOOD COUNT 3.43 10^6/uL (4.00-5.40); WHITE BLOOD COUNT 7.6 10^3/uL (4.0-10.0)
[2024-06-22 07:54] VITALS: BP 142/63; TEMP 98.2; O2SAT 96
[2024-06-22 08:32] VITALS: BP 142/63
[2024-06-22] MEDS: TOLVAPTAN 7.5 MG HALF-TAB PO ONE (10:47)
[2024-06-22 12:23] VITALS: BP 142/65; TEMP 98; O2SAT 96
[2024-06-22] MEDS ORDERED: SODI325T9 PO (13:50)
[2024-06-22] MEDS ORDERED: TORS100T PO (13:50)
[2024-06-22 15:26] LABS: CALCIUM LEVEL 8.4 MG/DL (8.3-10.6); CREATININE FOR GFR 1.68 MG/DL (0.55-1.30); GLOMERULAR FILTRATION RATE 31.9 (>39); POTASSIUM SERUM 4.9 MMOL/L (3.5-5.1)
== END 2024-06-22 19:30 | disposition home or self-care (01) | DRG 641 ==
LOC: M ED 11:09 → M ED INP 13:39 → M PCU 14:35
PROVIDERS: ADMIT Internal Medicine; ATTEND Internal Medicine
DX: E87.5 Hyperkalemia (principal); I50.32 Chronic diastolic (congestive) heart failure; I13.0 Hypertensive heart and chronic kidney disease with heart failure and stage 1 through stage 4 chronic kidney disease, or unspecified chronic kidney disease; E87.20 Acidosis, unspecified; I27.81 Cor pulmonale (chronic); I48.91 Unspecified atrial fibrillation; E11.51 Type 2 diabetes mellitus with diabetic peripheral angiopathy without gangrene; J44.9 Chronic obstructive pulmonary disease, unspecified; K21.9 Gastro-esophageal reflux disease without esophagitis; E11.22 Type 2 diabetes mellitus with diabetic chronic kidney disease; I73.9 Peripheral vascular disease, unspecified; F39 Unspecified mood [affective] disorder; N18.30 Chronic kidney disease, stage 3 unspecified; R19.7 Diarrhea, unspecified; D64.9 Anemia, unspecified; M47.816 Spondylosis without myelopathy or radiculopathy, lumbar region; I27.20 Pulmonary hypertension, unspecified; E87.1 Hypo-osmolality and hyponatremia; H40.9 Unspecified glaucoma; I49.5 Sick sinus syndrome; Z85.3 Personal history of malignant neoplasm of breast; Z90.13 Acquired absence of bilateral breasts and nipples; Z95.828 Presence of other vascular implants and grafts; Z89.421 Acquired absence of other right toe(s); Z98.84 Bariatric surgery status; Z79.01 Long term (current) use of anticoagulants; Z79.82 Long term (current) use of aspirin; Z79.899 Other long term (current) drug therapy; Z88.2 Allergy status to sulfonamides; Z88.1 Allergy status to other antibiotic agents; Z88.8 Allergy status to other drugs, medicaments and biological substances; Z95.2 Presence of prosthetic heart valve; Z95.0 Presence of cardiac pacemaker; Z90.79 Acquired absence of other genital organ(s); Z87.891 Personal history of nicotine dependence

== ENCOUNTER → 2024-06-19 | Outpatient (CLI) | payer MEDICARE, OTHER ==
[2024-06-19 09:57] LABS: FERRITIN 148.5 NG/ML (7.3-270.7)
[2024-06-19 10:51] LABS: ALBUMIN 3.6 G/DL (3.2-5.2); CALCIUM LEVEL 10.2 MG/DL (8.3-10.6); CREATININE FOR GFR 1.75 MG/DL (0.55-1.30); GLOMERULAR FILTRATION RATE 30.4 (>39); PHOSPHORUS LEVEL 4.4 MG/DL (2.4-5.1); POTASSIUM SERUM 7.6 MMOL/L (3.5-5.1)
== END ==
LOC: M LAB 08:56
PROVIDERS: ATTEND Family Medicine
DX: I50.32 Chronic diastolic (congestive) heart failure (principal)

== ENCOUNTER → 2024-06-24 | Outpatient (CLI) | payer MEDICARE, OTHER ==
[~2024-06-24] MED LIST changes: +ALBU8.5H INH; +GABA-284 PO; +MECL-86 PO; +POTA-298 PO; +ROSU20TA86 PO; +SODI325T9 PO; +VITA250T7 PO
[2024-06-24 12:45] LABS: BASO % 0.3 % (0.0-1.0); EOS # 0.2 10^3/uL (0.0-0.5); EOS % 1.5 % (0.0-3.0); HEMATOCRIT 35.3 % (36.0-47.0); HEMOGLOBIN 11.8 g/dl (12.0-15.5); LYMPH # 1.4 10^3/uL (1.5-5.0); LYMPH % 13.5 % (24.0-44.0); MEAN CORPUSCULAR HEMOGLOBIN 30.5 pg (27.0-33.0); MEAN CORPUSCULAR HGB CONC 33.4 g/dl (32.0-36.5); MEAN CORPUSCULAR VOLUME 91.2 fl (80.0-96.0); MONO % 9.6 % (2.0-8.0); NEUTROPHILS # 7.6 10^3/uL (1.5-8.5); NEUTROPHILS % 74.4 % (36.0-66.0); PLATELET COUNT, AUTOMATED 166 10^3/uL (150-450); RED BLOOD COUNT 3.87 10^6/uL (4.00-5.40); WHITE BLOOD COUNT 10.2 10^3/uL (4.0-10.0)
[2024-06-24 13:03] LABS: ALBUMIN 3.5 G/DL (3.2-5.2); BILIRUBIN,TOTAL 0.3 MG/DL (0.3-1.2); CALCIUM LEVEL 9.6 MG/DL (8.3-10.6); CREATININE FOR GFR 1.57 MG/DL (0.55-1.30); GLOMERULAR FILTRATION RATE 34.5 (>39); MAGNESIUM LEVEL 2.2 MG/DL (1.8-2.4); POTASSIUM SERUM 5.4 MMOL/L (3.5-5.1); TOTAL PROTEIN 6.9 G/DL (5.7-8.2)
== END ==
LOC: M LAB 11:37
PROVIDERS: ATTEND Family Medicine
DX: I10 Essential (primary) hypertension (principal)

== ENCOUNTER → 2024-07-01 | Outpatient (CLI) | payer MEDICARE, OTHER ==
[2024-07-01 11:34] LABS: BASO % 0.3 % (0.0-1.0); EOS # 0.2 10^3/uL (0.0-0.5); EOS % 1.5 % (0.0-3.0); HEMATOCRIT 32.7 % (36.0-47.0); HEMOGLOBIN 11.1 g/dl (12.0-15.5); LYMPH # 1.2 10^3/uL (1.5-5.0); LYMPH % 10.9 % (24.0-44.0); MEAN CORPUSCULAR HEMOGLOBIN 30.1 pg (27.0-33.0); MEAN CORPUSCULAR HGB CONC 33.9 g/dl (32.0-36.5); MEAN CORPUSCULAR VOLUME 88.6 fl (80.0-96.0); MONO # 0.8 10^3/uL (0.0-0.8); MONO % 6.9 % (2.0-8.0); NEUTROPHILS # 8.9 10^3/uL (1.5-8.5); PLATELET COUNT, AUTOMATED 145 10^3/uL (150-450); RED BLOOD COUNT 3.69 10^6/uL (4.00-5.40); WHITE BLOOD COUNT 11.1 10^3/uL (4.0-10.0)
[2024-07-01 11:48] LABS: URIC ACID 6.6 MG/DL (3.1-7.8)
[2024-07-01 11:52] LABS: ALBUMIN 3.2 G/DL (3.2-5.2); BILIRUBIN,TOTAL 0.3 MG/DL (0.3-1.2); CALCIUM LEVEL 9.2 MG/DL (8.3-10.6); CHOLESTEROL RISK RATIO 3.59 (<5); CREATININE FOR GFR 1.75 MG/DL (0.55-1.30); FREE T4 1.03 NG/DL (0.89-1.76); GLOMERULAR FILTRATION RATE 30.4 (>39); HDL CHOLESTEROL 45.3 MG/DL (>40); LDL CHOLESTEROL 83.5 MG/DL (<100); MAGNESIUM LEVEL 1.8 MG/DL (1.8-2.4); NON-HDL-C 117.7 MG/DL; PERCENT SATURATION 14.9 % (13.2-45.0); POTASSIUM SERUM 3.5 MMOL/L (3.5-5.1); TOTAL PROTEIN 6.6 G/DL (5.7-8.2)
[2024-07-01 11:54] LABS: THYROID STIMULATING HORMONE 1.345 uIU/ML (0.55-4.78)
== END ==
LOC: M LAB 10:24
PROVIDERS: ATTEND Family Medicine
DX: D50.9 Iron deficiency anemia, unspecified (principal); E78.2 Mixed hyperlipidemia; M10.9 Gout, unspecified; I10 Essential (primary) hypertension

== ENCOUNTER → 2024-07-02 | Outpatient (REF) | payer MEDICARE, OTHER | LOC: M SFHCPLAZ 10:51 | PROVIDERS: ATTEND Family Medicine | DX: D50.9 Iron deficiency anemia, unspecified (principal); I10 Essential (primary) hypertension; E78.2 Mixed hyperlipidemia ==

== ENCOUNTER → 2024-07-06 | Outpatient (CLI) | payer MEDICARE, OTHER | LOC: M RAD 10:12 | PROVIDERS: ATTEND Family Medicine | DX: K74.00 Hepatic fibrosis, unspecified (principal); N28.1 Cyst of kidney, acquired ==

== ENCOUNTER → 2024-07-09 | Outpatient (CLI) | payer MEDICARE, OTHER ==
[~2024-07-09] MED LIST changes: -ADV250INH INH; +ADVA1AER9 INH
[2024-07-09 16:08] LABS: BASO % 0.4 % (0.0-1.0); EOS # 0.2 10^3/uL (0.0-0.5); EOS % 1.9 % (0.0-3.0); HEMATOCRIT 29.8 % (36.0-47.0); HEMOGLOBIN 9.8 g/dl (12.0-15.5); LYMPH # 1.2 10^3/uL (1.5-5.0); LYMPH % 15.2 % (24.0-44.0); MEAN CORPUSCULAR HEMOGLOBIN 30.6 pg (27.0-33.0); MEAN CORPUSCULAR HGB CONC 32.9 g/dl (32.0-36.5); MEAN CORPUSCULAR VOLUME 93.1 fl (80.0-96.0); MONO # 0.6 10^3/uL (0.0-0.8); NEUTROPHILS # 5.7 10^3/uL (1.5-8.5); NEUTROPHILS % 74.2 % (36.0-66.0); PLATELET COUNT, AUTOMATED 136 10^3/uL (150-450); WHITE BLOOD COUNT 7.7 10^3/uL (4.0-10.0)
[2024-07-09 16:36] LABS: BILIRUBIN,TOTAL 0.5 MG/DL (0.3-1.2); CREATININE FOR GFR 1.53 MG/DL (0.55-1.30); GLOMERULAR FILTRATION RATE 35.5 (>39); MAGNESIUM LEVEL 1.6 MG/DL (1.8-2.4); TOTAL PROTEIN 5.9 G/DL (5.7-8.2)
== END ==
LOC: M LAB 15:25
PROVIDERS: ATTEND Family Medicine
DX: I11.0 Hypertensive heart disease with heart failure (principal); I50.32 Chronic diastolic (congestive) heart failure

== ENCOUNTER → 2024-07-16 | Outpatient (CLI) | payer MEDICARE, OTHER ==
[2024-07-16 12:49] LABS: BASO % 0.3 % (0.0-1.0); EOS # 0.1 10^3/uL (0.0-0.5); EOS % 1.8 % (0.0-3.0); HEMATOCRIT 29.5 % (36.0-47.0); HEMOGLOBIN 9.6 g/dl (12.0-15.5); LYMPH # 0.9 10^3/uL (1.5-5.0); LYMPH % 12.7 % (24.0-44.0); MEAN CORPUSCULAR HEMOGLOBIN 31.1 pg (27.0-33.0); MEAN CORPUSCULAR HGB CONC 32.5 g/dl (32.0-36.5); MEAN CORPUSCULAR VOLUME 95.5 fl (80.0-96.0); MONO # 0.5 10^3/uL (0.0-0.8); MONO % 7.1 % (2.0-8.0); NEUTROPHILS # 5.3 10^3/uL (1.5-8.5); NEUTROPHILS % 77.8 % (36.0-66.0); PLATELET COUNT, AUTOMATED 136 10^3/uL (150-450); RED BLOOD COUNT 3.09 10^6/uL (4.00-5.40); WHITE BLOOD COUNT 6.8 10^3/uL (4.0-10.0)
[2024-07-16 13:12] LABS: ALBUMIN 2.6 G/DL (3.2-5.2); BILIRUBIN,TOTAL 0.5 MG/DL (0.3-1.2); CALCIUM LEVEL 8.8 MG/DL (8.3-10.6); CREATININE FOR GFR 1.43 MG/DL (0.55-1.30); GLOMERULAR FILTRATION RATE 38.4 (>39); MAGNESIUM LEVEL 1.5 MG/DL (1.8-2.4); POTASSIUM SERUM 3.5 MMOL/L (3.5-5.1); TOTAL PROTEIN 5.7 G/DL (5.7-8.2)
[2024-07-16 13:14] LABS: FERRITIN 71.3 NG/ML (7.3-270.7)
== END ==
LOC: M LAB 12:06
PROVIDERS: ATTEND Family Medicine
DX: I11.0 Hypertensive heart disease with heart failure (principal); D50.9 Iron deficiency anemia, unspecified

== ENCOUNTER 2024-07-20 09:39 | Outpatient (CLI) | payer MEDICARE, OTHER ==
[~2024-07-20] VITALS: Ht 167.6 cm; Wt 84.1 kg
[~2024-07-20 09:39] MED LIST changes: +ALBUTEROL SULFATE 2.5MG/0.5ML INH NEB SOLN INH PRN; +EPINEPHrine INJ 1 MG/ML 1ML AMP IM PRN; +diphenhydrAMINE 50MG/ML VIAL IV PRN; +methylPREDNISolone 125MG 2ML VIAL IV PRN
[2024-07-20] MEDS: FERRIC CARBOXYMALTOSE INJ 750 MG in NS 100 ML (>50kg) IV ONE (10:00)
[2024-07-20 10:07] VITALS: BP 113/53; O2SAT 95
[2024-07-20 10:48] VITALS: BP 140/61; O2SAT 97
== END 2024-07-20 10:50 ==
LOC: M INFU 09:39
PROVIDERS: ATTEND Family Medicine
DX: D50.9 Iron deficiency anemia, unspecified (principal); Z88.2 Allergy status to sulfonamides; Z88.1 Allergy status to other antibiotic agents; Z88.8 Allergy status to other drugs, medicaments and biological substances
CPT/HCPCS: 96365; J1439

== ENCOUNTER → 2024-07-30 | Outpatient (CLI) | payer MEDICARE, OTHER ==
[~2024-07-30] MED LIST changes: -ALBUTEROL SULFATE 2.5MG/0.5ML INH NEB SOLN INH PRN; -EPINEPHrine INJ 1 MG/ML 1ML AMP IM PRN; -diphenhydrAMINE 50MG/ML VIAL IV PRN; -methylPREDNISolone 125MG 2ML VIAL IV PRN
[2024-07-30 15:21] LABS: BASO % 0.2 % (0.0-1.0); EOS # 0.1 10^3/uL (0.0-0.5); EOS % 1.8 % (0.0-3.0); HEMATOCRIT 31.5 % (36.0-47.0); HEMOGLOBIN 10.2 g/dl (12.0-15.5); LYMPH % 15.8 % (24.0-44.0); MEAN CORPUSCULAR HEMOGLOBIN 31.6 pg (27.0-33.0); MEAN CORPUSCULAR HGB CONC 32.4 g/dl (32.0-36.5); MEAN CORPUSCULAR VOLUME 97.5 fl (80.0-96.0); MONO # 0.4 10^3/uL (0.0-0.8); MONO % 6.6 % (2.0-8.0); NEUTROPHILS # 4.7 10^3/uL (1.5-8.5); NEUTROPHILS % 75.4 % (36.0-66.0); PLATELET COUNT, AUTOMATED 152 10^3/uL (150-450); RED BLOOD COUNT 3.23 10^6/uL (4.00-5.40); WHITE BLOOD COUNT 6.2 10^3/uL (4.0-10.0)
[2024-07-30 15:46] LABS: ALBUMIN 2.8 G/DL (3.2-5.2); BILIRUBIN,TOTAL 0.5 MG/DL (0.3-1.2); CALCIUM LEVEL 8.8 MG/DL (8.3-10.6); CREATININE FOR GFR 1.43 MG/DL (0.55-1.30); GLOMERULAR FILTRATION RATE 38.4 (>39); MAGNESIUM LEVEL 1.6 MG/DL (1.8-2.4); POTASSIUM SERUM 3.8 MMOL/L (3.5-5.1); TOTAL PROTEIN 5.9 G/DL (5.7-8.2)
[2024-07-30 15:47] LABS: PTH INTACT 104.2 PG/ML (18.5-88.0)
== END ==
LOC: M LAB 14:44
PROVIDERS: ATTEND Family Medicine
DX: I11.0 Hypertensive heart disease with heart failure (principal); D50.9 Iron deficiency anemia, unspecified; E53.8 Deficiency of other specified B group vitamins; E55.9 Vitamin D deficiency, unspecified

== ENCOUNTER → 2024-08-27 | Outpatient (CLI) | payer MEDICARE, OTHER ==
[~2024-08-27] MED LIST changes: -ADV500INH INH; +ADVA1AER10 INH
[2024-08-27 12:42] LABS: BASO % 0.3 % (0.0-1.0); EOS # 0.1 10^3/uL (0.0-0.5); EOS % 1.6 % (0.0-3.0); HEMATOCRIT 33.5 % (36.0-47.0); HEMOGLOBIN 10.6 g/dl (12.0-15.5); LYMPH # 0.9 10^3/uL (1.5-5.0); LYMPH % 12.5 % (24.0-44.0); MEAN CORPUSCULAR HGB CONC 31.6 g/dl (32.0-36.5); MONO # 0.5 10^3/uL (0.0-0.8); MONO % 6.9 % (2.0-8.0); NEUTROPHILS # 5.5 10^3/uL (1.5-8.5); NEUTROPHILS % 78.3 % (36.0-66.0); PLATELET COUNT, AUTOMATED 176 10^3/uL (150-450); RED BLOOD COUNT 3.42 10^6/uL (4.00-5.40); WHITE BLOOD COUNT 7.1 10^3/uL (4.0-10.0)
[2024-08-27 13:14] LABS: ALBUMIN 2.9 G/DL (3.2-5.2); BILIRUBIN,TOTAL 0.4 MG/DL (0.3-1.2); CALCIUM LEVEL 8.7 MG/DL (8.3-10.6); CREATININE FOR GFR 1.36 MG/DL (0.55-1.30); GLOMERULAR FILTRATION RATE 40.7 (>39); MAGNESIUM LEVEL 1.7 MG/DL (1.8-2.4); TOTAL PROTEIN 6.1 G/DL (5.7-8.2)
[2024-08-27 13:15] LABS: FERRITIN 310.4 NG/ML (7.3-270.7)
[2024-08-27 13:18] LABS: HEMOGLOBIN A1c 5.1 % (4.0-6.0)
== END ==
LOC: M LAB 10:52
PROVIDERS: ATTEND Family Medicine
DX: I11.0 Hypertensive heart disease with heart failure (principal); M10.9 Gout, unspecified; D50.9 Iron deficiency anemia, unspecified; Z79.899 Other long term (current) drug therapy

== ENCOUNTER → 2024-09-09 | Outpatient (CLI) | payer MEDICARE, OTHER ==
[2024-09-09 13:18] LABS: BASO % 0.3 % (0.0-1.0); EOS # 0.1 10^3/uL (0.0-0.5); EOS % 1.6 % (0.0-3.0); HEMATOCRIT 32.5 % (36.0-47.0); HEMOGLOBIN 10.5 g/dl (12.0-15.5); LYMPH # 0.9 10^3/uL (1.5-5.0); LYMPH % 12.5 % (24.0-44.0); MEAN CORPUSCULAR HEMOGLOBIN 30.9 pg (27.0-33.0); MEAN CORPUSCULAR HGB CONC 32.3 g/dl (32.0-36.5); MEAN CORPUSCULAR VOLUME 95.6 fl (80.0-96.0); MONO # 0.4 10^3/uL (0.0-0.8); MONO % 5.9 % (2.0-8.0); NEUTROPHILS # 5.8 10^3/uL (1.5-8.5); NEUTROPHILS % 79.6 % (36.0-66.0); PLATELET COUNT, AUTOMATED 180 10^3/uL (150-450); WHITE BLOOD COUNT 7.3 10^3/uL (4.0-10.0)
[2024-09-09 13:41] LABS: ALBUMIN 2.8 G/DL (3.2-5.2); BILIRUBIN,TOTAL 0.4 MG/DL (0.3-1.2); CALCIUM LEVEL 8.7 MG/DL (8.3-10.6); CREATININE FOR GFR 1.57 MG/DL (0.55-1.30); GLOMERULAR FILTRATION RATE 34.5 (>39); MAGNESIUM LEVEL 1.4 MG/DL (1.8-2.4)
[2024-09-09 13:42] LABS: FERRITIN 208.5 NG/ML (7.3-270.7)
== END ==
LOC: M LAB 11:13
PROVIDERS: ATTEND Family Medicine
DX: D50.9 Iron deficiency anemia, unspecified (principal); I50.32 Chronic diastolic (congestive) heart failure; Z98.84 Bariatric surgery status; I11.0 Hypertensive heart disease with heart failure

== ENCOUNTER → 2024-09-24 | Outpatient (CLI) | payer MEDICARE, OTHER ==
[2024-09-24 13:42] LABS: BASO % 0.2 % (0.0-1.0); EOS # 0.1 10^3/uL (0.0-0.5); EOS % 0.8 % (0.0-3.0); HEMATOCRIT 33.4 % (36.0-47.0); HEMOGLOBIN 10.8 g/dl (12.0-15.5); LYMPH % 9.9 % (24.0-44.0); MEAN CORPUSCULAR HEMOGLOBIN 30.8 pg (27.0-33.0); MEAN CORPUSCULAR HGB CONC 32.3 g/dl (32.0-36.5); MEAN CORPUSCULAR VOLUME 95.2 fl (80.0-96.0); MONO # 0.8 10^3/uL (0.0-0.8); MONO % 7.7 % (2.0-8.0); NEUTROPHILS # 8.2 10^3/uL (1.5-8.5); NEUTROPHILS % 81.1 % (36.0-66.0); PLATELET COUNT, AUTOMATED 164 10^3/uL (150-450); RED BLOOD COUNT 3.51 10^6/uL (4.00-5.40); WHITE BLOOD COUNT 10.2 10^3/uL (4.0-10.0)
[2024-09-24 14:09] LABS: ALBUMIN 2.8 G/DL (3.2-5.2); BILIRUBIN,TOTAL 0.6 MG/DL (0.3-1.2); CALCIUM LEVEL 8.5 MG/DL (8.3-10.6); CREATININE FOR GFR 1.66 MG/DL (0.55-1.30); GLOMERULAR FILTRATION RATE 32.3 (>39); MAGNESIUM LEVEL 1.4 MG/DL (1.8-2.4); POTASSIUM SERUM 4.2 MMOL/L (3.5-5.1); TOTAL PROTEIN 6.2 G/DL (5.7-8.2)
[2024-09-24 14:11] LABS: FERRITIN 430.2 NG/ML (7.3-270.7)
[2024-09-24 14:16] LABS: HEMOGLOBIN A1c 5.4 % (4.0-6.0)
== END ==
LOC: M LAB 12:51
PROVIDERS: ATTEND Family Medicine
DX: I11.0 Hypertensive heart disease with heart failure (principal); I50.32 Chronic diastolic (congestive) heart failure; D50.9 Iron deficiency anemia, unspecified; E11.9 Type 2 diabetes mellitus without complications

== ENCOUNTER 2024-10-02 13:43 | Inpatient (IN) | payer MEDICARE, OTHER ==
[~2024-10-02] VITALS: Ht 167.6 cm; Wt 87.7 kg
[2024-10-02] VITALS (11 sets, daily range): BP systolic 105–139; BP diastolic 56–78; TEMP 97.1–99.3; O2SAT 93–97
[2024-10-02] MEDS ORDERED: DICL100G10 (14:14)
[2024-10-02] MEDS ORDERED: POTA1TAB23 PO (14:14)
[2024-10-02] MEDS ORDERED: SODI650T PO (14:14)
[2024-10-02] MEDS ORDERED: TORS20TA2 (14:14)
[2024-10-02] MEDS: LIDOCAINE 2% 5ML JELLY UROJET TOP ONE (14:20)
[2024-10-02 14:41] LABS: VENOUS BASE EXCESS 9.9 (-2.0-2.0); VENOUS HCO3 35.1 MMOL/L (23.0-27.0); VENOUS O2 SATURATION 49.6 % (60.0-80.0); VENOUS PARTIAL PRESSURE CO2 52.4 mmHg (38.0-50.0); VENOUS PARTIAL PRESSURE O2 29.1 mmHg (30.0-50.0); VENOUS PH 7.444 UNITS (7.330-7.430); VENOUS STANDARD HCO3 32.9 MMOL/L; VENOUS TOTAL CO2 36.7 MMOL/L (24.0-28.0)
[2024-10-02 14:46] LABS: BASO % 0.2 % (0.0-1.0); EOS # 0.1 10^3/uL (0.0-0.5); EOS % 0.4 % (0.0-3.0); HEMATOCRIT 22.4 % (36.0-47.0); HEMOGLOBIN 7.2 g/dl (12.0-15.5); LYMPH # 0.7 10^3/uL (1.5-5.0); LYMPH % 5.6 % (24.0-44.0); MEAN CORPUSCULAR HEMOGLOBIN 30.1 pg (27.0-33.0); MEAN CORPUSCULAR HGB CONC 32.1 g/dl (32.0-36.5); MEAN CORPUSCULAR VOLUME 93.7 fl (80.0-96.0); MONO # 0.7 10^3/uL (0.0-0.8); MONO % 5.7 % (2.0-8.0); NEUTROPHILS # 11.4 10^3/uL (1.5-8.5); NEUTROPHILS % 87.4 % (36.0-66.0); PLATELET COUNT, AUTOMATED 252 10^3/uL (150-450); RED BLOOD COUNT 2.39 10^6/uL (4.00-5.40)
[2024-10-02 15:00] LABS: INR 2.31; PARTIAL THROMBOPLASTIN TIME 42.3 SECONDS (24.8-34.2); PROTHROMBIN TIME 25.4 SECONDS (12.5-14.5)
[2024-10-02 15:11] LABS: APPEARANCE, URINE HAZY (CLEAR); BACTERIA, URINE AUTO NEGATIVE (NEGATIVE); BILIRUBIN, URINE AUTO NEGATIVE (NEGATIVE); BLOOD, URINE BLOOD NEGATIVE (NEGATIVE); COLOR, URINE YELLOW (YELLOW); GLUCOSE, URINE (UA) AUTO NEGATIVE (NEGATIVE); KETONE, URINE AUTO NEGATIVE (NEGATIVE); LEUKOCYTE ESTERASE, URINE AUTO NEGATIVE (NEGATIVE); MUCUS, URINE SMALL (NEGATIVE); NITRITE, URINE AUTO NEGATIVE (NEGATIVE); PROTEIN, URINE AUTO NEGATIVE (NEGATIVE); RBC, URINE AUTO 1 /HPF (0-3); SPECIFIC GRAVITY URINE AUTO 1.013 (1.002-1.035); SQUAMOUS EPITHELIAL CELL UR AU 1 /HPF (0-6); UROBILINOGEN, URINE AUTO 0.2 mg/dL (0.0-2.0); WBC, URINE AUTO 2 /HPF (0-3)
[2024-10-02 15:11] LABS: ALKALINE PHOSPHATASE 118 U/L (35-104); ALT/SGPT 32 U/L (7.0-40); AST/SGOT 29 U/L (<34); BILIRUBIN,DIRECT 0.3 MG/DL (<0.4); BILIRUBIN,TOTAL 0.6 MG/DL (0.3-1.2); BLOOD UREA NITROGEN 45 MG/DL (9-23); CALCIUM LEVEL 7.9 MG/DL (8.3-10.6); CARBON DIOXIDE LEVEL 34 MMOL/L (20-31); CHLORIDE LEVEL 94 MMOL/L (98-107); CREATININE FOR GFR 1.64 MG/DL (0.55-1.30); GLOMERULAR FILTRATION RATE 32.8 (>39); GLUCOSE, FASTING 211 MG/DL (74-106); MAGNESIUM LEVEL 1.5 MG/DL (1.8-2.4); POTASSIUM SERUM 3.4 MMOL/L (3.5-5.1); SODIUM LEVEL 138 MMOL/L (136-145); TOTAL PROTEIN 5.2 G/DL (5.7-8.2)
[2024-10-02] MEDS: PANTOPRAZOLE 40MG VIAL IV ONE ×2 (15:14→21:43)
[2024-10-02] MEDS: NS 500 ML IV ONE (15:14)
[2024-10-02 15:15] LABS: PROCALCITONIN 0.58 ng/ml
[2024-10-02 15:16] LABS: AMYLASE < 20 U/L (30-118)
[2024-10-02] MEDS ORDERED: ISOVUE-370 76% 100ML VIAL As Ordered ONE (15:24)
[2024-10-02] MEDS: MAG SULF 1GM/100ML (MAG RUN) 1 GM in IV 1 EA IV ONE (15:44)
[2024-10-02] MEDS ORDERED: ARTIDRO4 OU (18:01)
[2024-10-02] MEDS ORDERED: LOPE2CAP PO (18:01)
[2024-10-02] MEDS ORDERED: ERYT5OIN25 OS (18:01)
[2024-10-02] MEDS ORDERED: TORS100T PO (18:01)
[2024-10-02] MEDS ORDERED: HOME MED LIST COMPLETE! XX SCH (18:05)
[2024-10-02] MEDS: FUROSEMIDE 40MG/4ML VIAL IV ONE (18:41)
[2024-10-02] MEDS ORDERED: ALBUTEROL 90 MCG/ACT 8GM HFA INHALER INH PRN (19:35)
[2024-10-02] MEDS ORDERED: MAALOX 30 ML SUSP *UDC PO PRN (19:35)
[2024-10-02] MEDS ORDERED: MOM 30ML SUSPENSION UDC PO PRN (19:35)
[2024-10-02] MEDS: POLYVINYL ALCOHOL OPHTH SOLN 15ML (LIQUITEARS) OU SCH (21:00)
[2024-10-02] MEDS: DOCUSATE SODIUM 100MG CAPSULE PO SCH (21:42)
[2024-10-02] MEDS: dilTIAZem 30 MG TAB PO SCH (21:42)
[2024-10-02] MEDS: GABAPENTIN 400MG CAP PO SCH (21:42)
[2024-10-02] MEDS: SUCRALFATE 1 GM TAB PO SCH (21:43)
[2024-10-02] MEDS: ERYTHROMYCIN OPHTH OINT OS SCH (21:43)
[2024-10-02] MEDS: ACETAMINOPHEN 325 MG TAB PO PRN (21:52)
[2024-10-02] MEDS: SODIUM BICARBONATE 325 MG TAB PO SCH (23:17)
[2024-10-03] VITALS (30 sets, daily range): BP systolic 106–147; BP diastolic 52–70; PULSE 88; TEMP 96.9–97.8; O2SAT 92–99
[2024-10-03 05:46] LABS: HEMATOCRIT 27.5 % (36.0-47.0); HEMOGLOBIN 9.1 g/dl (12.0-15.5); MEAN CORPUSCULAR HEMOGLOBIN 29.5 pg (27.0-33.0); MEAN CORPUSCULAR HGB CONC 33.1 g/dl (32.0-36.5); MEAN CORPUSCULAR VOLUME 89.3 fl (80.0-96.0); PLATELET COUNT, AUTOMATED 205 10^3/uL (150-450); RED BLOOD COUNT 3.08 10^6/uL (4.00-5.40); WHITE BLOOD COUNT 12.4 10^3/uL (4.0-10.0)
[2024-10-03 06:19] LABS: CALCIUM LEVEL 7.9 MG/DL (8.3-10.6); CREATININE FOR GFR 1.59 MG/DL (0.55-1.30); MAGNESIUM LEVEL 1.9 MG/DL (1.8-2.4); POTASSIUM SERUM 3.2 MMOL/L (3.5-5.1)
[2024-10-03 06:31] LABS: PROCALCITONIN 0.63 ng/ml
[2024-10-03 08:25] LABS: PROCALCITONIN 0.62 ng/ml
[2024-10-03] MEDS: COLESEVELAM 625 MG TAB (WELCHOL) PO SCH (08:49)
[2024-10-03] MEDS: ASPIRIN 81MG ENTERIC TABLET PO SCH (08:50)
[2024-10-03] MEDS: PANTOPRAZOLE 40MG VIAL IV SCH (08:50)
[2024-10-03] MEDS: ESCITALOPRAM OXALATE 10 MG TAB (LEXAPRO) PO SCH (08:50)
[2024-10-03] MEDS: FOLIC ACID 1MG TAB PO SCH (08:51)
[2024-10-03] MEDS ORDERED: bisoproloL fumarate 5 MG TAB PO SCH (09:00)
[2024-10-03] MEDS ORDERED: TORSEMIDE (DEMADEX) 50 MG PER 1/2 TAB PO SCH (09:00)
[2024-10-03] MEDS ORDERED: cefTRIAXone SOD 2GM VIAL IM SCH (10:30)
[2024-10-03] MEDS ORDERED: GLUCAGON INJ 1MG VIAL SC PRN (10:40)
[2024-10-03] MEDS ORDERED: DEXTROSE 50% 50ML SYRINGE IV PRN (10:40)
[2024-10-03] MEDS ORDERED: GLUCOSE 4 GM CHEW PO PRN (10:40)
[2024-10-03 10:58] LABS: PERCENT SATURATION 72.4 % (13.2-45.0)
[2024-10-03 10:59] LABS: FERRITIN 643.8 NG/ML (7.3-270.7)
[2024-10-03 11:00] LABS: FOLATE 4.71 NG/ML (>5.4)
[2024-10-03 12:04] LABS: HEMATOCRIT 25.3 % (36.0-47.0); HEMOGLOBIN 8.6 g/dl (12.0-15.5); MEAN CORPUSCULAR HEMOGLOBIN 29.9 pg (27.0-33.0); MEAN CORPUSCULAR VOLUME 87.8 fl (80.0-96.0); PLATELET COUNT, AUTOMATED 193 10^3/uL (150-450); RED BLOOD COUNT 2.88 10^6/uL (4.00-5.40); WHITE BLOOD COUNT 11.1 10^3/uL (4.0-10.0)
[2024-10-03] MEDS: cefTRIAXone SOD 2 GM in DEXTROSE 5% (D5W) ADV/MINI-BAG 50 ML IV SCH (12:12)
[2024-10-03] MEDS: allopurinoL 300 MG TAB PO SCH (12:12)
[2024-10-03] MEDS: CYANOCOBALAMIN 250 MCG TABLET PO SCH (12:12)
[2024-10-03] MEDS: POTASSIUM CHLORIDE 10MEQ SR TABLET PO SCH (12:12)
[2024-10-03] MEDS: INSULIN LISPRO (NovoLOG) PER UNIT SC SCH ×2 (12:13→21:00)
[2024-10-03] MEDS: ROSUVASTATIN 10 MG TAB (CRESTOR) PO SCH (12:18)
[2024-10-03 16:36] LABS: PH BODY FLUID 7.647 UNITS (NOT ESTABLISHED); SOURCE, BODY FLUID pH PLEURAL
[2024-10-03 16:51] LABS: SOURCE, BODY FLUID ALBUMIN PLEURAL
[2024-10-03 16:54] LABS: SOURCE, BODY FLUID PLEURAL
[2024-10-03 16:55] LABS: APPEARANCE, BODY FLUID CLOUDY (CLEAR); PLEURAL FL COLOR YELLOW (COLORLESS)
[2024-10-03 16:56] LABS: SOURCE, BODY FLUID GLUCOSE PLEURAL; SOURCE, BODY FLUID TRIG PLEURAL; TRIGLYCERIDE, BODY FLUID 31 MG/DL (NOT ESTABLISHED)
[2024-10-03 16:57] LABS: LDH, BODY FLUID 244 U/L (NOT ESTABLISHED); SOURCE, BODY FLUID LDH PLEURAL; SOURCE, BODY FLUID TOT PROTEIN PLEURAL; TOTAL PROTEIN, BODY FLUID 2.9 G/DL (NOT ESTABLISHED)
[2024-10-03 16:58] LABS: AMYLASE, BODY FLUID 65 U/L (NOT ESTABLISHED); CHOLESTEROL, BODY FLUID 46 MG/DL (NOT ESTABLISHED); SOURCE, BODY FLUID AMYLASE PLEURAL; SOURCE, BODY FLUID CHOL PLEURAL
[2024-10-03] MEDS: PERCOCET 5MG/325MG TAB PO PRN (17:06)
[2024-10-03 18:15] LABS: HEMATOCRIT 26.6 % (36.0-47.0); HEMOGLOBIN 8.8 g/dl (12.0-15.5); MEAN CORPUSCULAR HEMOGLOBIN 30.1 pg (27.0-33.0); MEAN CORPUSCULAR HGB CONC 33.1 g/dl (32.0-36.5); MEAN CORPUSCULAR VOLUME 91.1 fl (80.0-96.0); PLATELET COUNT, AUTOMATED 215 10^3/uL (150-450); RED BLOOD COUNT 2.92 10^6/uL (4.00-5.40); WHITE BLOOD COUNT 10.9 10^3/uL (4.0-10.0)
[2024-10-03] MEDS: MECLIZINE 25 MG TABLET PO SCH (21:34)
[2024-10-03] MEDS: FOLIC ACID 1 MG in NS 50 ML IV SCH (21:39)
[2024-10-04] VITALS (8 sets, daily range): BP systolic 119–140; BP diastolic 57–69; TEMP 97–97.7; O2SAT 91–98
[2024-10-04 09:04] LABS: HEMATOCRIT 28.2 % (36.0-47.0); HEMOGLOBIN 9.2 g/dl (12.0-15.5); MEAN CORPUSCULAR HEMOGLOBIN 29.7 pg (27.0-33.0); MEAN CORPUSCULAR HGB CONC 32.6 g/dl (32.0-36.5); PLATELET COUNT, AUTOMATED 216 10^3/uL (150-450); WHITE BLOOD COUNT 9.9 10^3/uL (4.0-10.0)
[2024-10-04 09:22] LABS: CALCIUM LEVEL 7.8 MG/DL (8.3-10.6); CREATININE FOR GFR 1.48 MG/DL (0.55-1.30); GLOMERULAR FILTRATION RATE 36.9 (>39); POTASSIUM SERUM 3.6 MMOL/L (3.5-5.1)
[2024-10-04] MEDS: DOXYCYCLINE HYCLATE 100MG TABLET PO SCH (11:28)
[2024-10-04 15:30] LABS: HEMOGLOBIN 9.5 g/dl (12.0-15.5); MEAN CORPUSCULAR HEMOGLOBIN 29.9 pg (27.0-33.0); MEAN CORPUSCULAR HGB CONC 32.8 g/dl (32.0-36.5); MEAN CORPUSCULAR VOLUME 91.2 fl (80.0-96.0); PLATELET COUNT, AUTOMATED 233 10^3/uL (150-450); RED BLOOD COUNT 3.18 10^6/uL (4.00-5.40); WHITE BLOOD COUNT 12.9 10^3/uL (4.0-10.0)
[2024-10-04 22:27] LABS: HEMATOCRIT 25.6 % (36.0-47.0); HEMOGLOBIN 8.5 g/dl (12.0-15.5); MEAN CORPUSCULAR HEMOGLOBIN 30.1 pg (27.0-33.0); MEAN CORPUSCULAR HGB CONC 33.2 g/dl (32.0-36.5); MEAN CORPUSCULAR VOLUME 90.8 fl (80.0-96.0); PLATELET COUNT, AUTOMATED 214 10^3/uL (150-450); RED BLOOD COUNT 2.82 10^6/uL (4.00-5.40); WHITE BLOOD COUNT 12.8 10^3/uL (4.0-10.0)
[2024-10-05] VITALS (17 sets, daily range): BP systolic 131–142; BP diastolic 61–74; TEMP 96.7–97.6; O2SAT 93–100
[2024-10-05 07:46] LABS: HEMATOCRIT 25.4 % (36.0-47.0); HEMOGLOBIN 8.2 g/dl (12.0-15.5); MEAN CORPUSCULAR HEMOGLOBIN 29.6 pg (27.0-33.0); MEAN CORPUSCULAR HGB CONC 32.3 g/dl (32.0-36.5); MEAN CORPUSCULAR VOLUME 91.7 fl (80.0-96.0); PLATELET COUNT, AUTOMATED 208 10^3/uL (150-450); RED BLOOD COUNT 2.77 10^6/uL (4.00-5.40); WHITE BLOOD COUNT 8.7 10^3/uL (4.0-10.0)
[2024-10-05 08:07] LABS: CALCIUM LEVEL 7.5 MG/DL (8.3-10.6); CREATININE FOR GFR 1.48 MG/DL (0.55-1.30); GLOMERULAR FILTRATION RATE 36.9 (>39); POTASSIUM SERUM 3.8 MMOL/L (3.5-5.1)
[2024-10-05 14:19] LABS: HEMATOCRIT 26.6 % (36.0-47.0); HEMOGLOBIN 8.6 g/dl (12.0-15.5); MEAN CORPUSCULAR HEMOGLOBIN 30.1 pg (27.0-33.0); MEAN CORPUSCULAR HGB CONC 32.3 g/dl (32.0-36.5); PLATELET COUNT, AUTOMATED 200 10^3/uL (150-450); RED BLOOD COUNT 2.86 10^6/uL (4.00-5.40); WHITE BLOOD COUNT 12.1 10^3/uL (4.0-10.0)
[2024-10-05] MEDS: FOLIC ACID 1MG TAB PO SCH (21:14)
[2024-10-05 22:20] LABS: HEMATOCRIT 25.6 % (36.0-47.0); HEMOGLOBIN 8.3 g/dl (12.0-15.5); MEAN CORPUSCULAR HEMOGLOBIN 29.5 pg (27.0-33.0); MEAN CORPUSCULAR HGB CONC 32.4 g/dl (32.0-36.5); MEAN CORPUSCULAR VOLUME 91.1 fl (80.0-96.0); PLATELET COUNT, AUTOMATED 233 10^3/uL (150-450); RED BLOOD COUNT 2.81 10^6/uL (4.00-5.40); WHITE BLOOD COUNT 12.8 10^3/uL (4.0-10.0)
[2024-10-06] VITALS (23 sets, daily range): BP systolic 13–166; BP diastolic 56–70; TEMP 96.8–97.9; O2SAT 90–100
[2024-10-06 06:35] LABS: CALCIUM LEVEL 7.8 MG/DL (8.3-10.6); CREATININE FOR GFR 1.48 MG/DL (0.55-1.30); GLOMERULAR FILTRATION RATE 36.9 (>39); POTASSIUM SERUM 4.3 MMOL/L (3.5-5.1)
[2024-10-06 08:19] LABS: HEMATOCRIT 24.8 % (36.0-47.0); HEMOGLOBIN 7.9 g/dl (12.0-15.5); MEAN CORPUSCULAR HEMOGLOBIN 29.7 pg (27.0-33.0); MEAN CORPUSCULAR HGB CONC 31.9 g/dl (32.0-36.5); MEAN CORPUSCULAR VOLUME 93.2 fl (80.0-96.0); PLATELET COUNT, AUTOMATED 218 10^3/uL (150-450); RED BLOOD COUNT 2.66 10^6/uL (4.00-5.40)
[2024-10-06] MEDS: VITAMIN D 50,000 UNITS CAPSULE (ERGOCALCIFEROL 1.25MG) PO SCH (09:29)
[2024-10-06] MEDS: ALTEPLASE 10MG IN NS 60ML SYRINGE INTRAPLEU ONE (14:30)
[2024-10-06] MEDS: PULMOZYME 5MG IN NS 55ML SYRINGE INTRAPLEU ONE (14:30)
[2024-10-06] MEDS: NS 50 ML SYRINGE INTRAPLEU ONE (14:31)
[2024-10-06] MEDS: oxyCODONE 5MG TAB PO ONE (20:50)
[2024-10-07] VITALS (25 sets, daily range): BP systolic 125–160; BP diastolic 56–75; TEMP 96.9–97.9; O2SAT 88–98
[2024-10-07 06:31] LABS: CALCIUM LEVEL 7.7 MG/DL (8.3-10.6); CREATININE FOR GFR 1.48 MG/DL (0.55-1.30); GLOMERULAR FILTRATION RATE 36.9 (>39); POTASSIUM SERUM 4.2 MMOL/L (3.5-5.1)
[2024-10-07 07:01] LABS: BASO % 0.2 % (0.0-1.0); EOS # 0.4 10^3/uL (0.0-0.5); EOS % 2.9 % (0.0-3.0); HEMATOCRIT 24.2 % (36.0-47.0); HEMOGLOBIN 7.9 g/dl (12.0-15.5); LYMPH # 1.1 10^3/uL (1.5-5.0); LYMPH % 8.6 % (24.0-44.0); MEAN CORPUSCULAR HGB CONC 32.6 g/dl (32.0-36.5); MONO # 1.1 10^3/uL (0.0-0.8); MONO % 8.4 % (2.0-8.0); NEUTROPHILS # 10.1 10^3/uL (1.5-8.5); NEUTROPHILS % 78.2 % (36.0-66.0); PLATELET COUNT, AUTOMATED 235 10^3/uL (150-450); RED BLOOD COUNT 2.63 10^6/uL (4.00-5.40); WHITE BLOOD COUNT 12.9 10^3/uL (4.0-10.0)
[2024-10-07] MEDS: SUCRALFATE 1 GM TAB PO SCH (09:07)
[2024-10-07] MEDS: AUGMENTIN 875 MG TAB PO SCH (20:50)
[2024-10-08] VITALS (30 sets, daily range): BP systolic 114–140; BP diastolic 53–74; TEMP 97.2–98; O2SAT 90–98
[2024-10-08 06:36] LABS: CALCIUM LEVEL 7.9 MG/DL (8.3-10.6); CREATININE FOR GFR 1.49 MG/DL (0.55-1.30); GLOMERULAR FILTRATION RATE 36.6 (>39); POTASSIUM SERUM 4.7 MMOL/L (3.5-5.1)
[2024-10-08 08:17] LABS: HEMATOCRIT 22.8 % (36.0-47.0); HEMOGLOBIN 7.3 g/dl (12.0-15.5); MEAN CORPUSCULAR HEMOGLOBIN 29.6 pg (27.0-33.0); MEAN CORPUSCULAR VOLUME 92.3 fl (80.0-96.0); PLATELET COUNT, AUTOMATED 233 10^3/uL (150-450); RED BLOOD COUNT 2.47 10^6/uL (4.00-5.40); WHITE BLOOD COUNT 10.7 10^3/uL (4.0-10.0)
[2024-10-08] MEDS: ALTEPLASE 10MG IN NS 60ML SYRINGE INTRAPLEU ONE (11:00)
[2024-10-08] MEDS: NS 50 ML SYRINGE INTRAPLEU ONE (11:00)
[2024-10-08] MEDS: PULMOZYME 5MG IN NS 55ML SYRINGE INTRAPLEU ONE (11:00)
[2024-10-09] VITALS (14 sets, daily range): BP systolic 131–152; BP diastolic 62–65; TEMP 97–98.5; O2SAT 90–98
[2024-10-09 08:08] LABS: CALCIUM LEVEL 7.7 MG/DL (8.3-10.6); CREATININE FOR GFR 1.55 MG/DL (0.55-1.30); POTASSIUM SERUM 4.6 MMOL/L (3.5-5.1)
[2024-10-09 10:40] LABS: BASO % 0.2 % (0.0-1.0); EOS # 0.3 10^3/uL (0.0-0.5); EOS % 3.3 % (0.0-3.0); HEMATOCRIT 24.2 % (36.0-47.0); HEMOGLOBIN 7.5 g/dl (12.0-15.5); LYMPH # 0.8 10^3/uL (1.5-5.0); LYMPH % 8.4 % (24.0-44.0); MEAN CORPUSCULAR HEMOGLOBIN 29.5 pg (27.0-33.0); MEAN CORPUSCULAR VOLUME 95.3 fl (80.0-96.0); MONO # 0.7 10^3/uL (0.0-0.8); MONO % 7.2 % (2.0-8.0); NEUTROPHILS # 7.9 10^3/uL (1.5-8.5); PLATELET COUNT, AUTOMATED 227 10^3/uL (150-450); RED BLOOD COUNT 2.54 10^6/uL (4.00-5.40)
[2024-10-10 04:00] VITALS: BP 115/70; TEMP 97.4; O2SAT 94
[2024-10-10 07:35] LABS: BASO % 0.2 % (0.0-1.0); EOS # 0.3 10^3/uL (0.0-0.5); EOS % 2.4 % (0.0-3.0); HEMATOCRIT 23.7 % (36.0-47.0); HEMOGLOBIN 7.4 g/dl (12.0-15.5); LYMPH # 1.1 10^3/uL (1.5-5.0); MEAN CORPUSCULAR HEMOGLOBIN 29.6 pg (27.0-33.0); MEAN CORPUSCULAR HGB CONC 31.2 g/dl (32.0-36.5); MEAN CORPUSCULAR VOLUME 94.8 fl (80.0-96.0); MONO % 9.1 % (2.0-8.0); NEUTROPHILS # 8.3 10^3/uL (1.5-8.5); NEUTROPHILS % 76.6 % (36.0-66.0); PLATELET COUNT, AUTOMATED 226 10^3/uL (150-450); WHITE BLOOD COUNT 10.8 10^3/uL (4.0-10.0)
[2024-10-10 07:50] VITALS: BP 130/61; TEMP 97.5; O2SAT 94
[2024-10-10 08:00] LABS: CREATININE FOR GFR 1.24 MG/DL (0.55-1.30); GLOMERULAR FILTRATION RATE 45.3 (>39); POTASSIUM SERUM 4.7 MMOL/L (3.5-5.1)
[2024-10-10] MEDS ORDERED: PANT40TA29 PO (09:22)
[2024-10-10] MEDS ORDERED: AMOX875T2 PO (09:29)
[2024-10-10] MEDS ORDERED: CVS1CAP2 PO (09:29)
[2024-10-11] MEDS ORDERED: PANT40TA29 PO (08:55)
[2024-10-11] MEDS ORDERED: CVS1CAP2 PO (08:55)
[2024-10-11] MEDS ORDERED: AMOX875T2 PO (08:55)
== END 2024-10-10 10:43 | disposition home or self-care (01) | DRG 377 ==
LOC: M ED 13:43 → EDBD 13:43 → M ED INP 19:33 → M PCU 22:22
PROVIDERS: ADMIT Student in an Organized Health Care Education/Training Program; ATTEND Student in an Organized Health Care Education/Training Program
PROC: 30233N1 Transfusion of Nonautologous Red Blood Cells into Peripheral Vein, Percutaneous Approach (ICD-10-PCS; 2024-10-02)
PROC: 0W9B30Z Drainage of Left Pleural Cavity with Drainage Device, Percutaneous Approach (ICD-10-PCS; 2024-10-03)
PROC: 3E0L3GC Introduction of Other Therapeutic Substance into Pleural Cavity, Percutaneous Approach (ICD-10-PCS; 2024-10-08)
PROC: 0DJ08ZZ Inspection of Upper Intestinal Tract, Via Natural or Artificial Opening Endoscopic (ICD-10-PCS; principal; 2024-10-08 13:30)
DX: K92.2 Gastrointestinal hemorrhage, unspecified (principal); J86.9 Pyothorax without fistula; J90 Pleural effusion, not elsewhere classified; D62 Acute posthemorrhagic anemia; E87.20 Acidosis, unspecified; D68.32 Hemorrhagic disorder due to extrinsic circulating anticoagulants; I50.30 Unspecified diastolic (congestive) heart failure; I13.0 Hypertensive heart and chronic kidney disease with heart failure and stage 1 through stage 4 chronic kidney disease, or unspecified chronic kidney disease; I95.1 Orthostatic hypotension; N18.31 Chronic kidney disease, stage 3a; E87.5 Hyperkalemia; E78.5 Hyperlipidemia, unspecified; J44.9 Chronic obstructive pulmonary disease, unspecified; E11.22 Type 2 diabetes mellitus with diabetic chronic kidney disease; I27.81 Cor pulmonale (chronic); I48.0 Paroxysmal atrial fibrillation; K21.9 Gastro-esophageal reflux disease without esophagitis; D63.8 Anemia in other chronic diseases classified elsewhere; M10.9 Gout, unspecified; I73.9 Peripheral vascular disease, unspecified; E11.51 Type 2 diabetes mellitus with diabetic peripheral angiopathy without gangrene; H40.9 Unspecified glaucoma; E11.42 Type 2 diabetes mellitus with diabetic polyneuropathy; I49.5 Sick sinus syndrome; I25.10 Atherosclerotic heart disease of native coronary artery without angina pectoris; F32.A Depression, unspecified; Z85.3 Personal history of malignant neoplasm of breast; Z98.84 Bariatric surgery status; Z90.13 Acquired absence of bilateral breasts and nipples; Z95.2 Presence of prosthetic heart valve; Z90.49 Acquired absence of other specified parts of digestive tract; Z95.0 Presence of cardiac pacemaker; Z95.5 Presence of coronary angioplasty implant and graft; Z79.01 Long term (current) use of anticoagulants; Z79.82 Long term (current) use of aspirin; Z79.2 Long term (current) use of antibiotics; Z79.899 Other long term (current) drug therapy; Z88.1 Allergy status to other antibiotic agents; Z88.2 Allergy status to sulfonamides; Z88.8 Allergy status to other drugs, medicaments and biological substances

== ENCOUNTER 2024-10-11 02:12 | Inpatient (IN) | payer MEDICARE, OTHER ==
[~2024-10-11] VITALS: Ht 167.6 cm; Wt 86.4 kg
[~2024-10-11 02:12] MED LIST changes: +ARTIDRO4 OU; +CVS1CAP2 PO; +DICL100G10; +ERYT5OIN25 OS; +LOPE2CAP PO; +POTA1TAB23 PO; +SODI650T PO; +TORS20TA2
[2024-10-11 03:45] LABS: BASO % 0.2 % (0.0-1.0); EOS # 0.1 10^3/uL (0.0-0.5); EOS % 0.8 % (0.0-3.0); HEMATOCRIT 23.3 % (36.0-47.0); HEMOGLOBIN 7.3 g/dl (12.0-15.5); LYMPH # 0.5 10^3/uL (1.5-5.0); LYMPH % 3.4 % (24.0-44.0); MEAN CORPUSCULAR HEMOGLOBIN 29.7 pg (27.0-33.0); MEAN CORPUSCULAR HGB CONC 31.3 g/dl (32.0-36.5); MEAN CORPUSCULAR VOLUME 94.7 fl (80.0-96.0); MONO # 0.7 10^3/uL (0.0-0.8); MONO % 4.6 % (2.0-8.0); NEUTROPHILS # 12.8 10^3/uL (1.5-8.5); NEUTROPHILS % 89.7 % (36.0-66.0); PLATELET COUNT, AUTOMATED 219 10^3/uL (150-450); RED BLOOD COUNT 2.46 10^6/uL (4.00-5.40); WHITE BLOOD COUNT 14.3 10^3/uL (4.0-10.0)
[2024-10-11 04:13] LABS: CALCIUM LEVEL 7.7 MG/DL (8.3-10.6); CREATININE FOR GFR 1.26 MG/DL (0.55-1.30); GLOMERULAR FILTRATION RATE 44.4 (>39); POTASSIUM SERUM 5.2 MMOL/L (3.5-5.1)
[2024-10-11 04:15] LABS: MB/CK RELATIVE INDEX 3.03 (< OR =4)
[2024-10-11] MEDS: IPRATROPIUM 0.5MG/ALBUTEROL 2.5MG INH SOL UD 3ML (DUONEB) NEB ONE (08:09)
[2024-10-11] MEDS ORDERED: AMOX875T2 PO (08:55)
[2024-10-11] MEDS ORDERED: HOME MED LIST COMPLETE! XX SCH (08:55)
[2024-10-11] MEDS ORDERED: CVS1CAP2 PO (08:55)
[2024-10-11] MEDS ORDERED: PANT40TA29 PO (08:55)
[2024-10-11] MEDS: COLESEVELAM 625 MG TAB (WELCHOL) PO SCH (09:00)
[2024-10-11] MEDS: TORSEMIDE 100 MG TAB PO SCH (09:00)
[2024-10-11] MEDS: CYANOCOBALAMIN 250 MCG TABLET PO SCH (09:00)
[2024-10-11] MEDS ORDERED: ALBUTEROL 90 MCG/ACT 8GM HFA INHALER INH PRN (09:10)
[2024-10-11] MEDS ORDERED: LOPERAMIDE 2 MG CAPLET PO PRN (09:10)
[2024-10-11 10:29] LABS: PROCALCITONIN 0.22 ng/ml
[2024-10-11] MEDS ORDERED: cefTRIAXone SOD 1 GM in DEXTROSE 5% (D5W) ADV/MINI-BAG 50 ML IV SCH (10:35)
[2024-10-11] MEDS: APIXABAN 5 MG TAB (ELIQUIS) PO SCH (11:28)
[2024-10-11] MEDS: FOLIC ACID 1MG TAB PO SCH (11:28)
[2024-10-11] MEDS: ROSUVASTATIN 10 MG TAB (CRESTOR) PO SCH (11:28)
[2024-10-11] MEDS: DOXYCYCLINE HYCLATE 100MG TABLET PO SCH (11:30)
[2024-10-11] MEDS: allopurinoL 300 MG TAB PO SCH (11:30)
[2024-10-11] MEDS: MECLIZINE 25 MG TABLET PO SCH (11:30)
[2024-10-11] MEDS: bisoproloL fumarate 5 MG TAB PO SCH (11:30)
[2024-10-11] MEDS: ESCITALOPRAM OXALATE 10 MG TAB (LEXAPRO) PO SCH (11:30)
[2024-10-11] MEDS: SUCRALFATE 1 GM TAB PO SCH (11:30)
[2024-10-11] MEDS: PANTOPRAZOLE 40MG TAB (PROTONIX) PO SCH (11:30)
[2024-10-11] MEDS: SODIUM BICARBONATE 325 MG TAB PO SCH (11:31)
[2024-10-11] MEDS: dilTIAZem 30 MG TAB PO SCH (11:31)
[2024-10-11] MEDS: cefTRIAXone SOD 2 GM in DEXTROSE 5% (D5W) ADV/MINI-BAG 50 ML IV SCH (11:31)
[2024-10-11 12:57] LABS: CREATININE FOR GFR 1.2 MG/DL (0.55-1.30); POTASSIUM SERUM 5.4 MMOL/L (3.5-5.1)
[2024-10-11] MEDS ORDERED: GLUCOSE 4 GM CHEW PO PRN (15:20)
[2024-10-11] MEDS ORDERED: GLUCAGON INJ 1MG VIAL SC PRN (15:20)
[2024-10-11] MEDS ORDERED: DEXTROSE 50% 50ML SYRINGE IV PRN (15:20)
[2024-10-11] MEDS: POLYVINYL ALCOHOL OPHTH SOLN 15ML (LIQUITEARS) OU SCH (16:05)
[2024-10-11 16:33] LABS: PH BODY FLUID 7.629 UNITS (NOT ESTABLISHED); SOURCE, BODY FLUID pH PLEURAL
[2024-10-11 17:14] LABS: PLEURAL FL COLOR PALE YELLOW (COLORLESS); SOURCE, BODY FLUID PLEURAL; SOURCE, BODY FLUID GLUCOSE PLEURAL; SOURCE, BODY FLUID TRIG PLEURAL; TRIGLYCERIDE, BODY FLUID 14.99999 MG/DL (NOT ESTABLISHED)
[2024-10-11 17:15] LABS: APPEARANCE, BODY FLUID CLOUDY (CLEAR); LDH, BODY FLUID 129 U/L (NOT ESTABLISHED); SOURCE, BODY FLUID LDH PLEURAL
[2024-10-11 17:16] LABS: AMYLASE, BODY FLUID 40 U/L (NOT ESTABLISHED); CHOLESTEROL, BODY FLUID < 25 MG/DL (NOT ESTABLISHED); SOURCE, BODY FLUID AMYLASE PLEURAL; SOURCE, BODY FLUID CHOL PLEURAL
[2024-10-11 17:45] LABS: SOURCE, BODY FLUID ALBUMIN PLEURAL; SOURCE, BODY FLUID TOT PROTEIN PLEURAL; TOTAL PROTEIN, BODY FLUID < 2.0 G/DL (NOT ESTABLISHED)
[2024-10-11] MEDS: FUROSEMIDE 40MG/4ML VIAL IV ONE (17:59)
[2024-10-11] MEDS: INSULIN LISPRO (NovoLOG) PER UNIT SC SCH (17:59)
[2024-10-11] MEDS ORDERED: AUGMENTIN 875 MG TAB PO SCH (21:00)
[2024-10-11] MEDS: GABAPENTIN 400MG CAP PO SCH (21:25)
[2024-10-11] MEDS: ERYTHROMYCIN OPHTH OINT OS SCH (21:26)
[2024-10-12 06:21] LABS: HEMATOCRIT 23.9 % (36.0-47.0); HEMOGLOBIN 7.5 g/dl (12.0-15.5); MEAN CORPUSCULAR HEMOGLOBIN 29.8 pg (27.0-33.0); MEAN CORPUSCULAR HGB CONC 31.4 g/dl (32.0-36.5); MEAN CORPUSCULAR VOLUME 94.8 fl (80.0-96.0); PLATELET COUNT, AUTOMATED 249 10^3/uL (150-450); RED BLOOD COUNT 2.52 10^6/uL (4.00-5.40); WHITE BLOOD COUNT 15.4 10^3/uL (4.0-10.0)
[2024-10-12 06:39] LABS: CALCIUM LEVEL 8.3 MG/DL (8.3-10.6); CREATININE FOR GFR 1.32 MG/DL (0.55-1.30); GLOMERULAR FILTRATION RATE 42.1 (>39); POTASSIUM SERUM 5.3 MMOL/L (3.5-5.1)
[2024-10-12] MEDS ORDERED: NS 50 ML SYRINGE INTRAPLEU ONE (09:00)
[2024-10-12] MEDS: NS 50 ML SYRINGE INTRAPLEU ONE (10:50)
[2024-10-12] MEDS: ALTEPLASE 10MG IN NS 60ML SYRINGE INTRAPLEU ONE (10:51)
[2024-10-12] MEDS: PULMOZYME 5MG IN NS 55ML SYRINGE INTRAPLEU ONE (10:51)
[2024-10-12 17:45] VITALS: BP 120/53; TEMP 97; O2SAT 90
[2024-10-12 20:00] VITALS: BP 131/52; TEMP 97.3; O2SAT 95
[2024-10-12] MEDS ORDERED: PILL CUTTER 1 EACH XX ONE (20:50)
[2024-10-13 00:37] VITALS: BP_SYST 124; BP_SYST 156; BP_DIAS 52; BP_DIAS 60; TEMP 97.5; O2SAT 91
[2024-10-13 03:40] VITALS: BP 129/85; TEMP 97.5; O2SAT 95
[2024-10-13 05:48] LABS: HEMATOCRIT 23.6 % (36.0-47.0); HEMOGLOBIN 7.3 g/dl (12.0-15.5); MEAN CORPUSCULAR HEMOGLOBIN 29.3 pg (27.0-33.0); MEAN CORPUSCULAR HGB CONC 30.9 g/dl (32.0-36.5); MEAN CORPUSCULAR VOLUME 94.8 fl (80.0-96.0); PLATELET COUNT, AUTOMATED 240 10^3/uL (150-450); RED BLOOD COUNT 2.49 10^6/uL (4.00-5.40); WHITE BLOOD COUNT 14.1 10^3/uL (4.0-10.0)
[2024-10-13 06:04] LABS: CALCIUM LEVEL 8.3 MG/DL (8.3-10.6); CREATININE FOR GFR 1.61 MG/DL (0.55-1.30); GLOMERULAR FILTRATION RATE 33.5 (>39); POTASSIUM SERUM 4.5 MMOL/L (3.5-5.1)
[2024-10-13 08:00] VITALS: BP 119/59; TEMP 96.6; O2SAT 99
[2024-10-13] MEDS: VITAMIN D 50,000 UNITS CAPSULE (ERGOCALCIFEROL 1.25MG) PO SCH (09:35)
[2024-10-13 11:34] LABS: PROCALCITONIN 0.21 ng/ml
[2024-10-13 12:00] VITALS: BP 117/55; TEMP 97; O2SAT 98
[2024-10-13] MEDS: NS 50 ML SYRINGE INTRAPLEU ONE (12:00)
[2024-10-13] MEDS: AUGMENTIN 875 MG TAB PO SCH (12:50)
[2024-10-13] MEDS: ALTEPLASE 10MG IN NS 60ML SYRINGE INTRAPLEU ONE (13:01)
[2024-10-13] MEDS: PULMOZYME 5MG IN NS 55ML SYRINGE INTRAPLEU ONE (13:01)
[2024-10-13 16:00] VITALS: BP 128/55; TEMP 97; O2SAT 97
[2024-10-13 20:06] VITALS: BP 126/80; TEMP 97.2; O2SAT 96
[2024-10-14] VITALS (10 sets, daily range): BP systolic 125–137; BP diastolic 51–79; TEMP 96.8–99.5; O2SAT 93–97
[2024-10-14 06:19] LABS: MEAN CORPUSCULAR HEMOGLOBIN 28.6 pg (27.0-33.0); MEAN CORPUSCULAR HGB CONC 30.4 g/dl (32.0-36.5); MEAN CORPUSCULAR VOLUME 93.9 fl (80.0-96.0); PLATELET COUNT, AUTOMATED 203 10^3/uL (150-450); RED BLOOD COUNT 2.45 10^6/uL (4.00-5.40); WHITE BLOOD COUNT 9.8 10^3/uL (4.0-10.0)
[2024-10-14 06:48] LABS: CALCIUM LEVEL 8.4 MG/DL (8.3-10.6); CREATININE FOR GFR 1.44 MG/DL (0.55-1.30); GLOMERULAR FILTRATION RATE 38.1 (>39); POTASSIUM SERUM 4.6 MMOL/L (3.5-5.1)
[2024-10-14 06:49] LABS: PERCENT SATURATION 9.6 % (13.2-45.0)
[2024-10-14 06:50] LABS: FERRITIN 575.2 NG/ML (7.3-270.7)
[2024-10-14] MEDS: FERRIC CARBOXYMALTOSE INJ 750 MG, VIAL MATE ADAPTER 1 EACH in NS 100 ML IV ONE (13:36)
[2024-10-14] MEDS: DARBEPOETIN 100MCG/0.5ML *NON-DIALYSIS* SYRINGE SQ ONE (13:36)
[2024-10-14 15:25] LABS: HEMATOCRIT 28.7 % (36.0-47.0); HEMOGLOBIN 9.1 g/dl (12.0-15.5)
[2024-10-14] MEDS: ACETAMINOPHEN 500 MG TAB PO PRN (16:20)
[2024-10-15] VITALS (14 sets, daily range): BP systolic 132–137; BP diastolic 52–87; TEMP 97.5–98.4; O2SAT 84–96
[2024-10-15 05:47] LABS: HEMATOCRIT 29.1 % (36.0-47.0); MEAN CORPUSCULAR HEMOGLOBIN 28.8 pg (27.0-33.0); MEAN CORPUSCULAR HGB CONC 30.9 g/dl (32.0-36.5); MEAN CORPUSCULAR VOLUME 93.3 fl (80.0-96.0); PLATELET COUNT, AUTOMATED 211 10^3/uL (150-450); RED BLOOD COUNT 3.12 10^6/uL (4.00-5.40); WHITE BLOOD COUNT 10.1 10^3/uL (4.0-10.0)
[2024-10-15 06:13] LABS: CALCIUM LEVEL 8.3 MG/DL (8.3-10.6); CREATININE FOR GFR 1.35 MG/DL (0.55-1.30); POTASSIUM SERUM 4.8 MMOL/L (3.5-5.1)
[2024-10-15] MEDS ORDERED: TORS100T PO (11:39)
[2024-10-15] MEDS ORDERED: AMOX875T2 PO (11:39)
[2024-10-16] MEDS ORDERED: TORSEMIDE (DEMADEX) 50 MG PER 1/2 TAB PO SCH (09:00)
[2024-10-20] MEDS ORDERED: VITAMIN D 50,000 UNITS CAPSULE (ERGOCALCIFEROL 1.25MG) PO SCH (09:00)
== END 2024-10-15 13:57 | disposition home health service (06) | DRG 177 ==
LOC: M ED 02:12 → M ED INP 09:11 → M MSPAV 10-12 17:40
PROVIDERS: ADMIT Student in an Organized Health Care Education/Training Program; ATTEND Student in an Organized Health Care Education/Training Program
PROC: 0W9B30Z Drainage of Left Pleural Cavity with Drainage Device, Percutaneous Approach (ICD-10-PCS; principal; 2024-10-11 16:00)
PROC: 3E0L3GC Introduction of Other Therapeutic Substance into Pleural Cavity, Percutaneous Approach (ICD-10-PCS; 2024-10-12)
PROC: 3E0L3GC Introduction of Other Therapeutic Substance into Pleural Cavity, Percutaneous Approach (ICD-10-PCS; 2024-10-13)
DX: J86.9 Pyothorax without fistula (principal); J96.01 Acute respiratory failure with hypoxia; J90 Pleural effusion, not elsewhere classified; I13.0 Hypertensive heart and chronic kidney disease with heart failure and stage 1 through stage 4 chronic kidney disease, or unspecified chronic kidney disease; I50.32 Chronic diastolic (congestive) heart failure; N17.9 Acute kidney failure, unspecified; E78.5 Hyperlipidemia, unspecified; J44.9 Chronic obstructive pulmonary disease, unspecified; M10.9 Gout, unspecified; E11.22 Type 2 diabetes mellitus with diabetic chronic kidney disease; K52.9 Noninfective gastroenteritis and colitis, unspecified; I48.0 Paroxysmal atrial fibrillation; D63.8 Anemia in other chronic diseases classified elsewhere; I27.81 Cor pulmonale (chronic); M47.816 Spondylosis without myelopathy or radiculopathy, lumbar region; E11.51 Type 2 diabetes mellitus with diabetic peripheral angiopathy without gangrene; H40.9 Unspecified glaucoma; Z95.3 Presence of xenogenic heart valve; Z85.3 Personal history of malignant neoplasm of breast; Z90.13 Acquired absence of bilateral breasts and nipples; Z98.84 Bariatric surgery status; Z95.0 Presence of cardiac pacemaker; D50.9 Iron deficiency anemia, unspecified; E87.5 Hyperkalemia; E11.40 Type 2 diabetes mellitus with diabetic neuropathy, unspecified; N18.31 Chronic kidney disease, stage 3a; F32.A Depression, unspecified; Z79.01 Long term (current) use of anticoagulants; Z79.899 Other long term (current) drug therapy; Z88.2 Allergy status to sulfonamides; Z88.8 Allergy status to other drugs, medicaments and biological substances; E11.65 Type 2 diabetes mellitus with hyperglycemia; D63.1 Anemia in chronic kidney disease; I25.10 Atherosclerotic heart disease of native coronary artery without angina pectoris; I49.5 Sick sinus syndrome; K21.9 Gastro-esophageal reflux disease without esophagitis

== ENCOUNTER → 2024-10-25 | Outpatient (CLI) | payer MEDICARE, OTHER ==
[~2024-10-25] MED LIST changes: +DOXY-442 PO; -DOXY100C82 PO
[2024-10-25 17:19] LABS: BASO % 0.3 % (0.0-1.0); EOS # 0.3 10^3/uL (0.0-0.5); EOS % 2.9 % (0.0-3.0); HEMATOCRIT 30.4 % (36.0-47.0); HEMOGLOBIN 9.5 g/dl (12.0-15.5); LYMPH # 1.1 10^3/uL (1.5-5.0); LYMPH % 10.2 % (24.0-44.0); MEAN CORPUSCULAR HEMOGLOBIN 29.8 pg (27.0-33.0); MEAN CORPUSCULAR HGB CONC 31.3 g/dl (32.0-36.5); MEAN CORPUSCULAR VOLUME 95.3 fl (80.0-96.0); MONO # 0.9 10^3/uL (0.0-0.8); MONO % 7.6 % (2.0-8.0); NEUTROPHILS # 8.8 10^3/uL (1.5-8.5); NEUTROPHILS % 78.4 % (36.0-66.0); PLATELET COUNT, AUTOMATED 145 10^3/uL (150-450); RED BLOOD COUNT 3.19 10^6/uL (4.00-5.40); WHITE BLOOD COUNT 11.2 10^3/uL (4.0-10.0)
[2024-10-25 17:43] LABS: ALBUMIN 2.6 G/DL (3.2-5.2); BILIRUBIN,TOTAL 0.6 MG/DL (0.3-1.2); CALCIUM LEVEL 8.5 MG/DL (8.3-10.6); CREATININE FOR GFR 1.57 MG/DL (0.55-1.30); GLOMERULAR FILTRATION RATE 34.5 (>39); POTASSIUM SERUM 4.2 MMOL/L (3.5-5.1); TOTAL PROTEIN 6.4 G/DL (5.7-8.2)
[2024-10-25 17:46] LABS: FERRITIN 1062.6 NG/ML (7.3-270.7)
== END ==
LOC: M PLALAB 15:19
PROVIDERS: ATTEND Physician Assistant Medical
DX: Z87.19 Personal history of other diseases of the digestive system (principal); D50.9 Iron deficiency anemia, unspecified; N18.31 Chronic kidney disease, stage 3a; E87.5 Hyperkalemia

== ENCOUNTER → 2024-10-29 | Outpatient (CLI) | payer MEDICARE, OTHER ==
[~2024-10-29] VITALS: Ht 167.6 cm; Wt 82.0 kg
[~2024-10-29] MED LIST changes: +ALBUTEROL SULFATE 2.5MG/0.5ML INH NEB SOLN INH PRN; +EPINEPHrine INJ 1 MG/ML 1ML AMP IM PRN; +diphenhydrAMINE 50MG/ML VIAL IV PRN; +methylPREDNISolone 125MG 2ML VIAL IV PRN
[2024-10-29 09:05] VITALS: BP 101/51; O2SAT 98
[2024-10-29] MEDS: IRON SUCROSE 400 MG in NS 250 ML OVER 2.5 HRS IV ONE (10:04)
[2024-10-29 12:45] VITALS: BP 108/50; O2SAT 97
== END ==
LOC: M INFU 08:57
PROVIDERS: ATTEND Internal Medicine Nephrology
DX: D50.9 Iron deficiency anemia, unspecified (principal); Z88.1 Allergy status to other antibiotic agents; Z88.2 Allergy status to sulfonamides; Z88.8 Allergy status to other drugs, medicaments and biological substances
CPT/HCPCS: 96365; 96366; J1756

== ENCOUNTER → 2024-11-11 | Outpatient (CLI) | payer MEDICARE, OTHER ==
[~2024-11-11] MED LIST changes: -ALBUTEROL SULFATE 2.5MG/0.5ML INH NEB SOLN INH PRN; +DICL100G10 TOP; -EPINEPHrine INJ 1 MG/ML 1ML AMP IM PRN; +SPIR50TA4 PO; -diphenhydrAMINE 50MG/ML VIAL IV PRN; -methylPREDNISolone 125MG 2ML VIAL IV PRN
[2024-11-11 10:36] LABS: HEMATOCRIT 27.4 % (36.0-47.0); HEMOGLOBIN 8.5 g/dl (12.0-15.5); MEAN CORPUSCULAR VOLUME 96.8 fl (80.0-96.0); RED BLOOD COUNT 2.83 10^6/uL (4.00-5.40); WHITE BLOOD COUNT 10.7 10^3/uL (4.0-10.0)
[2024-11-11 10:37] LABS: PLATELET COUNT, AUTOMATED 80 10^3/uL (150-450)
== END ==
LOC: M LAB 09:58
PROVIDERS: ATTEND Internal Medicine
DX: D64.9 Anemia, unspecified (principal); D69.6 Thrombocytopenia, unspecified

== ENCOUNTER → 2024-11-15 | Outpatient (CLI) | payer MEDICARE, OTHER ==
[2024-11-15 11:33] LABS: BASO % 0.2 % (0.0-1.0); EOS # 0.2 10^3/uL (0.0-0.5); EOS % 2.8 % (0.0-3.0); HEMATOCRIT 28.1 % (36.0-47.0); HEMOGLOBIN 8.8 g/dl (12.0-15.5); LYMPH # 0.8 10^3/uL (1.5-5.0); LYMPH % 10.2 % (24.0-44.0); MEAN CORPUSCULAR HEMOGLOBIN 29.5 pg (27.0-33.0); MEAN CORPUSCULAR HGB CONC 31.3 g/dl (32.0-36.5); MEAN CORPUSCULAR VOLUME 94.3 fl (80.0-96.0); MONO # 0.5 10^3/uL (0.0-0.8); NEUTROPHILS # 6.5 10^3/uL (1.5-8.5); NEUTROPHILS % 80.2 % (36.0-66.0); PLATELET COUNT, AUTOMATED 135 10^3/uL (150-450); RED BLOOD COUNT 2.98 10^6/uL (4.00-5.40); WHITE BLOOD COUNT 8.1 10^3/uL (4.0-10.0)
[2024-11-15 12:03] LABS: ALBUMIN 2.4 G/DL (3.2-5.2); BILIRUBIN,TOTAL 0.5 MG/DL (0.3-1.2); CALCIUM LEVEL 7.6 MG/DL (8.3-10.6); CREATININE FOR GFR 1.11 MG/DL (0.55-1.30); GLOMERULAR FILTRATION RATE 52.8 (>39); MAGNESIUM LEVEL 1.5 MG/DL (1.8-2.4); POTASSIUM SERUM 3.8 MMOL/L (3.5-5.1); TOTAL PROTEIN 5.6 G/DL (5.7-8.2)
[2024-11-15 12:04] LABS: PERCENT SATURATION 18.1 % (13.2-45.0)
[2024-11-15 12:08] LABS: FERRITIN 893.9 NG/ML (7.3-270.7)
== END ==
LOC: M LAB 10:59
PROVIDERS: ATTEND Family Medicine
DX: D50.9 Iron deficiency anemia, unspecified (principal); I50.30 Unspecified diastolic (congestive) heart failure

== ENCOUNTER → 2024-11-19 | Outpatient (CLI) | payer MEDICARE, OTHER ==
[2024-11-19 17:40] LABS: BASO % 0.3 % (0.0-1.0); EOS # 0.2 10^3/uL (0.0-0.5); EOS % 2.3 % (0.0-3.0); HEMATOCRIT 30.9 % (36.0-47.0); HEMOGLOBIN 9.6 g/dl (12.0-15.5); LYMPH # 0.9 10^3/uL (1.5-5.0); LYMPH % 12.5 % (24.0-44.0); MEAN CORPUSCULAR HEMOGLOBIN 29.6 pg (27.0-33.0); MEAN CORPUSCULAR HGB CONC 31.1 g/dl (32.0-36.5); MEAN CORPUSCULAR VOLUME 95.4 fl (80.0-96.0); MONO # 0.6 10^3/uL (0.0-0.8); MONO % 9.3 % (2.0-8.0); NEUTROPHILS # 5.2 10^3/uL (1.5-8.5); PLATELET COUNT, AUTOMATED 172 10^3/uL (150-450); RED BLOOD COUNT 3.24 10^6/uL (4.00-5.40); WHITE BLOOD COUNT 6.9 10^3/uL (4.0-10.0)
[2024-11-19 17:54] LABS: HEMOGLOBIN A1c 4.9 % (4.0-6.0)
[2024-11-19 18:02] LABS: URIC ACID 4.8 MG/DL (3.1-7.8)
[2024-11-19 18:10] LABS: ALBUMIN 2.5 G/DL (3.2-5.2); BILIRUBIN,TOTAL 0.4 MG/DL (0.3-1.2); CALCIUM LEVEL 8.1 MG/DL (8.3-10.6); CREATININE FOR GFR 1.17 MG/DL (0.55-1.30); FERRITIN 872.4 NG/ML (7.3-270.7); GLOMERULAR FILTRATION RATE 49.6 (>39); MAGNESIUM LEVEL 1.7 MG/DL (1.8-2.4); POTASSIUM SERUM 3.8 MMOL/L (3.5-5.1); TOTAL PROTEIN 5.9 G/DL (5.7-8.2)
== END ==
LOC: M PLALAB 16:15
PROVIDERS: ATTEND Family Medicine
DX: I10 Essential (primary) hypertension (principal); D50.9 Iron deficiency anemia, unspecified; E11.9 Type 2 diabetes mellitus without complications; I50.32 Chronic diastolic (congestive) heart failure

== ENCOUNTER 2024-11-25 11:45 | Emergency (ER) | payer MEDICARE, OTHER ==
[~2024-11-25] VITALS: Ht 167.6 cm; Wt 81.8 kg
[~2024-11-25 11:45] MED LIST changes: -CYCL7.5T32 PO; -MEDR4PAK PO
[2024-11-25 11:49] VITALS: TEMP 98.4
[2024-11-25] MEDS: ACETAMINOPHEN 325 MG TAB PO ONE (12:56)
[2024-11-25] MEDS: diazePAM 5MG TABLET PO ONE (16:29)
[2024-11-25] MEDS: KETOROLAC 30 MG/ML 1ML VIAL IM ONE (16:29)
[2024-11-25] MEDS: LIDOCAINE 5% (LIDODERM) PATCH TD ONE (16:29)
[2024-11-25 17:22] VITALS: BP 132/60; O2SAT 99
[2024-11-25] MEDS ORDERED: MEDR4PAK PO (17:48)
[2024-11-25] MEDS ORDERED: CYCL7.5T32 PO (17:48)
== END 2024-11-25 17:57 | disposition home or self-care (01) ==
LOC: M ED 11:45
DX: M65.28 Calcific tendinitis, other site (principal); E11.9 Type 2 diabetes mellitus without complications; Z88.2 Allergy status to sulfonamides; Z88.1 Allergy status to other antibiotic agents; Z88.8 Allergy status to other drugs, medicaments and biological substances; Z79.51 Long term (current) use of inhaled steroids; Z79.01 Long term (current) use of anticoagulants; Z79.2 Long term (current) use of antibiotics; Z79.899 Other long term (current) drug therapy
CPT/HCPCS: 36415; 73502; 73552; 80053; 82728; 83735; 83880; 85025; 96372; 99283; J1885

== ENCOUNTER → 2024-11-25 | Outpatient (CLI) | payer MEDICARE, OTHER ==
[~2024-11-25] MED LIST changes: +CYCL7.5T32 PO; +MEDR4PAK PO
[2024-11-25 12:11] LABS: BASO % 0.5 % (0.0-1.0); EOS # 0.2 10^3/uL (0.0-0.5); EOS % 2.4 % (0.0-3.0); HEMOGLOBIN 9.4 g/dl (12.0-15.5); LYMPH % 16.6 % (24.0-44.0); MEAN CORPUSCULAR HEMOGLOBIN 29.9 pg (27.0-33.0); MEAN CORPUSCULAR HGB CONC 31.3 g/dl (32.0-36.5); MEAN CORPUSCULAR VOLUME 95.5 fl (80.0-96.0); MONO # 0.4 10^3/uL (0.0-0.8); MONO % 6.5 % (2.0-8.0); NEUTROPHILS # 4.5 10^3/uL (1.5-8.5); NEUTROPHILS % 73.5 % (36.0-66.0); PLATELET COUNT, AUTOMATED 182 10^3/uL (150-450); RED BLOOD COUNT 3.14 10^6/uL (4.00-5.40); WHITE BLOOD COUNT 6.1 10^3/uL (4.0-10.0)
[2024-11-25 12:49] LABS: FERRITIN 886.6 NG/ML (7.3-270.7)
[2024-11-25 12:58] LABS: ALBUMIN 2.4 G/DL (3.2-5.2); BILIRUBIN,TOTAL 0.3 MG/DL (0.3-1.2); CALCIUM LEVEL 8.3 MG/DL (8.3-10.6); CREATININE FOR GFR 1.38 MG/DL (0.55-1.30); GLOMERULAR FILTRATION RATE 40.7 (>39); MAGNESIUM LEVEL 1.7 MG/DL (1.8-2.4); POTASSIUM SERUM 3.9 MMOL/L (3.5-5.1); TOTAL PROTEIN 5.7 G/DL (5.7-8.2)
== END ==
LOC: M LAB 11:29
PROVIDERS: ATTEND Family Medicine
DX: I50.32 Chronic diastolic (congestive) heart failure (principal)

== ENCOUNTER → 2024-12-08 | Outpatient (CLI) | payer MEDICARE, OTHER ==
[~2024-12-08] MED LIST changes: +CYCL7.5T32 PO; +MEDR4PAK PO; +PANT-23 PO
[2024-12-08 10:34] LABS: BASO % 0.2 % (0.0-1.0); EOS # 0.1 10^3/uL (0.0-0.5); EOS % 1.4 % (0.0-3.0); HEMATOCRIT 31.2 % (36.0-47.0); HEMOGLOBIN 9.8 g/dl (12.0-15.5); LYMPH # 0.7 10^3/uL (1.5-5.0); LYMPH % 6.8 % (24.0-44.0); MEAN CORPUSCULAR HEMOGLOBIN 30.5 pg (27.0-33.0); MEAN CORPUSCULAR HGB CONC 31.4 g/dl (32.0-36.5); MEAN CORPUSCULAR VOLUME 97.2 fl (80.0-96.0); MONO # 0.9 10^3/uL (0.0-0.8); MONO % 9.3 % (2.0-8.0); NEUTROPHILS # 7.8 10^3/uL (1.5-8.5); NEUTROPHILS % 81.9 % (36.0-66.0); PLATELET COUNT, AUTOMATED 103 10^3/uL (150-450); RED BLOOD COUNT 3.21 10^6/uL (4.00-5.40); WHITE BLOOD COUNT 9.6 10^3/uL (4.0-10.0)
[2024-12-08 10:40] LABS: HEMOGLOBIN A1c 5.1 % (4.0-6.0)
[2024-12-08 10:56] LABS: ALBUMIN 2.5 G/DL (3.2-5.2); BILIRUBIN,TOTAL 0.8 MG/DL (0.3-1.2); CALCIUM LEVEL 8.4 MG/DL (8.3-10.6); CREATININE FOR GFR 1.09 MG/DL (0.55-1.30); GLOMERULAR FILTRATION RATE 53.6 (>39); MAGNESIUM LEVEL 1.9 MG/DL (1.8-2.4); POTASSIUM SERUM 4.5 MMOL/L (3.5-5.1); TOTAL PROTEIN 5.5 G/DL (5.7-8.2)
[2024-12-08 10:57] LABS: FERRITIN 1044.2 NG/ML (7.3-270.7)
== END ==
LOC: M LAB 09:50
PROVIDERS: ATTEND Family Medicine
DX: I11.0 Hypertensive heart disease with heart failure (principal); I50.32 Chronic diastolic (congestive) heart failure; D50.9 Iron deficiency anemia, unspecified; E11.9 Type 2 diabetes mellitus without complications

== ENCOUNTER 2024-12-12 09:44 | Inpatient (IN) | payer MEDICARE, OTHER ==
[~2024-12-12] VITALS: Ht 167.6 cm; Wt 83.7 kg
[~2024-12-12 09:44] MED LIST changes: -PANT-23 PO
[2024-12-12] MEDS ORDERED: ISOVUE-370 76% 100ML VIAL As Ordered ONE (10:19)
[2024-12-12 10:48] LABS: BASO % 0.3 % (0.0-1.0); EOS # 0.1 10^3/uL (0.0-0.5); EOS % 0.9 % (0.0-3.0); HEMATOCRIT 31.1 % (36.0-47.0); HEMOGLOBIN 9.6 g/dl (12.0-15.5); LYMPH # 0.6 10^3/uL (1.5-5.0); LYMPH % 9.8 % (24.0-44.0); MEAN CORPUSCULAR HEMOGLOBIN 30.2 pg (27.0-33.0); MEAN CORPUSCULAR HGB CONC 30.9 g/dl (32.0-36.5); MEAN CORPUSCULAR VOLUME 97.8 fl (80.0-96.0); MONO # 0.4 10^3/uL (0.0-0.8); MONO % 6.7 % (2.0-8.0); NEUTROPHILS # 5.3 10^3/uL (1.5-8.5); PLATELET COUNT, AUTOMATED 134 10^3/uL (150-450); RED BLOOD COUNT 3.18 10^6/uL (4.00-5.40); WHITE BLOOD COUNT 6.4 10^3/uL (4.0-10.0)
[2024-12-12 10:59] LABS: INR 1.67; PARTIAL THROMBOPLASTIN TIME 35.5 SECONDS (24.8-34.2); PROTHROMBIN TIME 19.9 SECONDS (12.5-14.5)
[2024-12-12 11:13] LABS: LIPASE 22 U/L (12-53)
[2024-12-12 11:14] LABS: CPK CREATINE PHOSPHOKINASE 27 U/L (34-145)
[2024-12-12 11:18] LABS: ALBUMIN 2.5 G/DL (3.2-5.2); ALKALINE PHOSPHATASE 168 U/L (35-104); ALT/SGPT 63 U/L (7.0-40); AST/SGOT 30 U/L (<34); BILIRUBIN,DIRECT 0.2 MG/DL (<0.4); BILIRUBIN,TOTAL 0.5 MG/DL (0.3-1.2); BLOOD UREA NITROGEN 18 MG/DL (9-23); CARBON DIOXIDE LEVEL 28 MMOL/L (20-31); CHLORIDE LEVEL 108 MMOL/L (98-107); CK-MB VALUE MASS < 1.0 NG/ML (<3.6); CREATININE FOR GFR 1.13 MG/DL (0.55-1.30); GLOMERULAR FILTRATION RATE 51.4 (>39); GLUCOSE, FASTING 141 MG/DL (74-106); POTASSIUM SERUM 5.3 MMOL/L (3.5-5.1); SODIUM LEVEL 141 MMOL/L (136-145); TOTAL PROTEIN 5.6 G/DL (5.7-8.2)
[2024-12-12 11:19] LABS: FREE T4 1.07 NG/DL (0.89-1.76); THYROID STIMULATING HORMONE 1.002 uIU/ML (0.55-4.78)
[2024-12-12] MEDS: LIDOCAINE 2% 5ML JELLY UROJET TOP ONE (12:00)
[2024-12-12] MEDS: ALBUTEROL SULFATE 2.5MG/0.5ML INH CONCENTRATE NEB SOLN INH ONE (12:12)
[2024-12-12] MEDS: IPRATROPIUM 0.5MG/ALBUTEROL 2.5MG INH SOL UD 3ML NEB ONE (12:12)
[2024-12-12 12:16] LABS: KETONE, URINE AUTO RFX NEGATIVE (NEGATIVE); LEUKOCYTE ESTERASE UR AUTO RFX 2+ (NEGATIVE); MUCUS, URINE RFX SMALL (NEGATIVE); NITRITE, URINE AUTO RFX NEGATIVE (NEGATIVE); RBC, URINE AUTO RFX 6 /HPF (0-3); SQUAM EPITHELIAL CELL UR AURFX 8 /HPF (0-6); WBC, URINE AUTO RFX 56 /HPF (0-3)
[2024-12-12 12:30] LABS: CK-MB VALUE MASS < 1.0 NG/ML (<3.6)
[2024-12-12 12:31] LABS: CPK CREATINE PHOSPHOKINASE 28 U/L (34-145); MB/CK RELATIVE INDEX 3.57 (< OR =4)
[2024-12-12] MEDS: methylPREDNISolone 125MG 2ML VIAL IV ONE (12:51)
[2024-12-12] MEDS: cefTRIAXone SOD 1 GM in DEXTROSE 5% (D5W) ADV/MINI-BAG 50 ML IV ONE (13:21)
[2024-12-12 13:28] LABS: C REACTIVE PROTEIN QUANTITATIV 2.54 MG/DL (<1.0)
[2024-12-12] MEDS ORDERED: MOM 30ML SUSPENSION UDC PO PRN (13:40)
[2024-12-12] MEDS ORDERED: MAALOX 30 ML SUSP *UDC PO PRN (13:40)
[2024-12-12] MEDS ORDERED: ACETAMINOPHEN 325 MG TAB PO PRN (13:40)
[2024-12-12 14:30] LABS: FOLATE 7.4 NG/ML (>5.4); VITAMIN B12 LEVEL 776 PG/ML (211-911)
[2024-12-12] MEDS ORDERED: SUCR1TAB56 PO (14:38)
[2024-12-12] MEDS ORDERED: PANT-23 PO (14:46)
[2024-12-12] MEDS ORDERED: HOME MED LIST COMPLETE! XX SCH (14:50)
[2024-12-12 15:10] VITALS: BP 149/66; TEMP 98; O2SAT 92
[2024-12-12] MEDS ORDERED: LOPERAMIDE 2 MG CAPLET PO PRN (15:45)
[2024-12-12] MEDS ORDERED: POLYVINYL ALCOHOL OPHTH SOLN 15ML (LIQUITEARS) OU PRN (15:45)
[2024-12-12] MEDS ORDERED: ALBUTEROL 90 MCG/ACT 8GM HFA INHALER INH PRN (15:45)
[2024-12-12] MEDS ORDERED: NYSTATIN 100,000 UNITS/GM TOPICAL PWD 15GM TOP PRN (16:35)
[2024-12-12] MEDS: SUCRALFATE 1 GM TAB PO SCH (17:15)
[2024-12-12 19:54] VITALS: BP 174/71; TEMP 97.8; O2SAT 98
[2024-12-12 20:01] VITALS: BP 142/78
[2024-12-12] MEDS ORDERED: POTASSIUM CHLORIDE 10MEQ SR TABLET PO SCH (21:00)
[2024-12-12] MEDS: COLESEVELAM 625 MG TAB (WELCHOL) PO SCH (22:21)
[2024-12-12] MEDS: GABAPENTIN 400MG CAP PO SCH (22:21)
[2024-12-12] MEDS: dilTIAZem 30 MG TAB PO SCH (22:21)
[2024-12-12] MEDS: SODIUM BICARBONATE 325 MG TAB PO SCH (22:21)
[2024-12-12] MEDS: TORSEMIDE (DEMADEX) 50 MG PER 1/2 TAB PO SCH (22:22)
[2024-12-12] MEDS: PANTOPRAZOLE 40MG TAB (PROTONIX) PO SCH (22:22)
[2024-12-12] MEDS: APIXABAN 5 MG TAB (ELIQUIS) PO SCH (22:23)
[2024-12-12] MEDS: DOCUSATE SODIUM 100MG CAPSULE PO SCH (22:23)
[2024-12-12 23:33] VITALS: BP 165/70; TEMP 96.9; O2SAT 99
[2024-12-13] VITALS (7 sets, daily range): BP systolic 130–157; BP diastolic 61–88; TEMP 96.7–97.3; O2SAT 98–100
[2024-12-13 03:54] LABS: BASO % 0.2 % (0.0-1.0); HEMATOCRIT 28.3 % (36.0-47.0); HEMOGLOBIN 8.8 g/dl (12.0-15.5); LYMPH # 0.3 10^3/uL (1.5-5.0); LYMPH % 6.8 % (24.0-44.0); MEAN CORPUSCULAR HEMOGLOBIN 29.4 pg (27.0-33.0); MEAN CORPUSCULAR HGB CONC 31.1 g/dl (32.0-36.5); MEAN CORPUSCULAR VOLUME 94.6 fl (80.0-96.0); MONO # 0.1 10^3/uL (0.0-0.8); MONO % 1.6 % (2.0-8.0); NEUTROPHILS # 3.9 10^3/uL (1.5-8.5); NEUTROPHILS % 90.9 % (36.0-66.0); PLATELET COUNT, AUTOMATED 122 10^3/uL (150-450); RED BLOOD COUNT 2.99 10^6/uL (4.00-5.40); WHITE BLOOD COUNT 4.3 10^3/uL (4.0-10.0)
[2024-12-13 04:15] LABS: CALCIUM LEVEL 8.2 MG/DL (8.3-10.6); CREATININE FOR GFR 1.11 MG/DL (0.55-1.30); GLOMERULAR FILTRATION RATE 52.5 (>39); MAGNESIUM LEVEL 2.1 MG/DL (1.8-2.4); POTASSIUM SERUM 5.2 MMOL/L (3.5-5.1)
[2024-12-13] MEDS: allopurinoL 300 MG TAB PO SCH (09:06)
[2024-12-13] MEDS: CYANOCOBALAMIN 250 MCG TABLET PO SCH (09:07)
[2024-12-13] MEDS: bisoproloL fumarate 5 MG TAB PO SCH (09:08)
[2024-12-13] MEDS: ESCITALOPRAM OXALATE 10 MG TAB (LEXAPRO) PO SCH (09:10)
[2024-12-13] MEDS: ROSUVASTATIN 10 MG TAB (CRESTOR) PO SCH (09:11)
[2024-12-13] MEDS: cefTRIAXone SOD 1 GM in DEXTROSE 5% (D5W) ADV/MINI-BAG 50 ML IV SCH (13:30)
[2024-12-13] MEDS: LOPERAMIDE 2 MG CAPLET PO PRN (22:57)
[2024-12-13] MEDS: LACTOBACILLUS ACIDOPHILUS CAP (BACID) PO SCH (22:58)
[2024-12-14 04:36] VITALS: BP 137/69; TEMP 97.7; O2SAT 99
[2024-12-14 06:00] LABS: BASO % 0.1 % (0.0-1.0); EOS # 0.1 10^3/uL (0.0-0.5); EOS % 0.7 % (0.0-3.0); HEMATOCRIT 31.3 % (36.0-47.0); HEMOGLOBIN 9.8 g/dl (12.0-15.5); LYMPH # 1.1 10^3/uL (1.5-5.0); MEAN CORPUSCULAR HEMOGLOBIN 29.4 pg (27.0-33.0); MEAN CORPUSCULAR HGB CONC 31.3 g/dl (32.0-36.5); MONO # 0.4 10^3/uL (0.0-0.8); MONO % 3.9 % (2.0-8.0); NEUTROPHILS % 84.8 % (36.0-66.0); PLATELET COUNT, AUTOMATED 151 10^3/uL (150-450); RED BLOOD COUNT 3.33 10^6/uL (4.00-5.40); WHITE BLOOD COUNT 10.6 10^3/uL (4.0-10.0)
[2024-12-14 06:12] LABS: CALCIUM LEVEL 8.6 MG/DL (8.3-10.6); CREATININE FOR GFR 1.46 MG/DL (0.55-1.30); GLOMERULAR FILTRATION RATE 37.8 (>39); POTASSIUM SERUM 4.2 MMOL/L (3.5-5.1)
[2024-12-14] MEDS: NS (Normal Saline) 0.9% 1,000 ML IV SCH (08:17)
[2024-12-14 12:00] VITALS: BP 115/47; TEMP 97.2; O2SAT 100
[2024-12-14 19:26] VITALS: BP 114/48; TEMP 97.3; O2SAT 98
[2024-12-14] MEDS: AUGMENTIN 875 MG TAB PO SCH (20:27)
[2024-12-15 04:13] VITALS: BP 132/61; TEMP 97.5; O2SAT 99
[2024-12-15 05:51] LABS: BASO % 0.3 % (0.0-1.0); EOS # 0.2 10^3/uL (0.0-0.5); EOS % 2.3 % (0.0-3.0); HEMATOCRIT 29.2 % (36.0-47.0); LYMPH # 1.3 10^3/uL (1.5-5.0); LYMPH % 19.7 % (24.0-44.0); MEAN CORPUSCULAR HEMOGLOBIN 29.5 pg (27.0-33.0); MEAN CORPUSCULAR HGB CONC 30.8 g/dl (32.0-36.5); MEAN CORPUSCULAR VOLUME 95.7 fl (80.0-96.0); MONO # 0.4 10^3/uL (0.0-0.8); MONO % 6.3 % (2.0-8.0); NEUTROPHILS # 4.5 10^3/uL (1.5-8.5); NEUTROPHILS % 71.1 % (36.0-66.0); PLATELET COUNT, AUTOMATED 135 10^3/uL (150-450); RED BLOOD COUNT 3.05 10^6/uL (4.00-5.40); WHITE BLOOD COUNT 6.4 10^3/uL (4.0-10.0)
[2024-12-15 06:20] LABS: CALCIUM LEVEL 7.9 MG/DL (8.3-10.6); CREATININE FOR GFR 1.44 MG/DL (0.55-1.30); GLOMERULAR FILTRATION RATE 38.4 (>39); MAGNESIUM LEVEL 1.6 MG/DL (1.8-2.4); POTASSIUM SERUM 3.5 MMOL/L (3.5-5.1)
[2024-12-15] MEDS: MAG SULF 1GM/100ML (MAG RUN) 1 GM in IV 1 EA IV ONE (09:04)
[2024-12-15] MEDS: VITAMIN D 50,000 UNITS CAPSULE (ERGOCALCIFEROL 1.25MG) PO SCH (09:06)
[2024-12-15 09:08] VITALS: BP 131/58
[2024-12-15] MEDS ORDERED: TORS100T PO (10:32)
[2024-12-15] MEDS ORDERED: AMOX875T2 PO (11:01)
[2024-12-15] MEDS ORDERED: ESSE250T PO (11:01)
[2024-12-15] MEDS ORDERED: POTA1TAB23 PO (11:01)
[2024-12-15 12:00] VITALS: BP 133/57; TEMP 97.3; O2SAT 97
== END 2024-12-15 13:30 | disposition home or self-care (01) | DRG 556 ==
LOC: EDBD 09:44 → M ED 09:44 → M ED INP 13:46 → M PCU 15:09 → M MS5PR 12-13 16:23 → OBSVTOIN 12-14 09:41
PROVIDERS: ADMIT Internal Medicine; ATTEND Internal Medicine
DX: R29.898 Other symptoms and signs involving the musculoskeletal system (principal); J96.11 Chronic respiratory failure with hypoxia; I50.32 Chronic diastolic (congestive) heart failure; I13.0 Hypertensive heart and chronic kidney disease with heart failure and stage 1 through stage 4 chronic kidney disease, or unspecified chronic kidney disease; N18.30 Chronic kidney disease, stage 3 unspecified; I48.91 Unspecified atrial fibrillation; J44.9 Chronic obstructive pulmonary disease, unspecified; E78.5 Hyperlipidemia, unspecified; K52.9 Noninfective gastroenteritis and colitis, unspecified; G89.29 Other chronic pain; E87.5 Hyperkalemia; D69.6 Thrombocytopenia, unspecified; D63.1 Anemia in chronic kidney disease; R53.1 Weakness; F39 Unspecified mood [affective] disorder; B95.1 Streptococcus, group B, as the cause of diseases classified elsewhere; M17.11 Unilateral primary osteoarthritis, right knee; R32 Unspecified urinary incontinence; K21.9 Gastro-esophageal reflux disease without esophagitis; Z98.84 Bariatric surgery status; Z90.13 Acquired absence of bilateral breasts and nipples; Z90.49 Acquired absence of other specified parts of digestive tract; Z95.0 Presence of cardiac pacemaker; Z95.2 Presence of prosthetic heart valve; Z79.01 Long term (current) use of anticoagulants; Z79.899 Other long term (current) drug therapy; Z88.8 Allergy status to other drugs, medicaments and biological substances; R15.9 Full incontinence of feces; E83.42 Hypomagnesemia; Z88.2 Allergy status to sulfonamides; Z87.891 Personal history of nicotine dependence; B95.2 Enterococcus as the cause of diseases classified elsewhere

== ENCOUNTER 2024-12-20 11:24 | Outpatient (CLI) | payer MEDICARE, OTHER ==
[~2024-12-20] VITALS: Ht 167.6 cm; Wt 80.5 kg
[~2024-12-20 11:24] MED LIST changes: +ALBUTEROL SULFATE 2.5MG/0.5ML INH CONCENTRATE NEB SOLN INH PRN; +AMMO12CR4 EXT; +AMMO12CR4 TOP; -AMMO12CR7 EXT; -AMMO12CR7 TOP; +EPINEPHrine INJ 1 MG/ML 1ML AMP IM PRN; +MAGN250T17 PO; +PANT-23 PO; +diphenhydrAMINE 50MG/ML VIAL IV PRN; +methylPREDNISolone 125MG 2ML VIAL IV PRN
[2024-12-20 11:30] VITALS: BP 130/79; O2SAT 100
[2024-12-20 12:00] VITALS: BP 139/66; O2SAT 99
[2024-12-20] MEDS ORDERED: FERRIC CARBOXYMALTOSE 750 MG (VIAL MATE) IN 100ML NS IV ONE (12:00)
== END 2024-12-20 12:10 | disposition home or self-care (01) ==
LOC: M INFU 11:24
PROVIDERS: ATTEND Family Medicine
DX: D50.9 Iron deficiency anemia, unspecified (principal); Z88.1 Allergy status to other antibiotic agents; Z88.2 Allergy status to sulfonamides; Z88.8 Allergy status to other drugs, medicaments and biological substances

== ENCOUNTER → 2024-12-23 | Outpatient (CLI) | payer MEDICARE, OTHER ==
[~2024-12-23] MED LIST changes: -ALBUTEROL SULFATE 2.5MG/0.5ML INH CONCENTRATE NEB SOLN INH PRN; -EPINEPHrine INJ 1 MG/ML 1ML AMP IM PRN; -diphenhydrAMINE 50MG/ML VIAL IV PRN; -methylPREDNISolone 125MG 2ML VIAL IV PRN
== END ==
LOC: M RAD 09:20
PROVIDERS: ATTEND Orthopaedic Surgery
DX: M79.662 Pain in left lower leg (principal)

== ENCOUNTER → 2024-12-27 | Outpatient (CLI) | payer MEDICARE, OTHER ==
[2024-12-27 09:58] LABS: BASO % 0.4 % (0.0-1.0); EOS # 0.1 10^3/uL (0.0-0.5); EOS % 1.3 % (0.0-3.0); HEMOGLOBIN 9.4 g/dl (12.0-15.5); LYMPH # 0.9 10^3/uL (1.5-5.0); MEAN CORPUSCULAR HEMOGLOBIN 29.7 pg (27.0-33.0); MEAN CORPUSCULAR HGB CONC 31.3 g/dl (32.0-36.5); MEAN CORPUSCULAR VOLUME 94.6 fl (80.0-96.0); MONO # 0.5 10^3/uL (0.0-0.8); MONO % 7.1 % (2.0-8.0); NEUTROPHILS # 5.8 10^3/uL (1.5-8.5); NEUTROPHILS % 78.7 % (36.0-66.0); PLATELET COUNT, AUTOMATED 152 10^3/uL (150-450); RED BLOOD COUNT 3.17 10^6/uL (4.00-5.40); WHITE BLOOD COUNT 7.4 10^3/uL (4.0-10.0)
[2024-12-27 10:30] LABS: ALBUMIN 2.7 G/DL (3.2-5.2); BILIRUBIN,TOTAL 0.3 MG/DL (0.3-1.2); CALCIUM LEVEL 8.5 MG/DL (8.3-10.6); CREATININE FOR GFR 1.12 MG/DL (0.55-1.30); GLOMERULAR FILTRATION RATE 51.9 (>39); PERCENT SATURATION 17.1 % (13.2-45.0); POTASSIUM SERUM 3.8 MMOL/L (3.5-5.1); PTH INTACT 86.4 PG/ML (18.5-88.0); TOTAL PROTEIN 6.2 G/DL (5.7-8.2)
[2024-12-27 10:34] LABS: FERRITIN 1212.8 NG/ML (7.3-270.7)
== END ==
LOC: M LAB 08:50
PROVIDERS: ATTEND Family Medicine
DX: D50.9 Iron deficiency anemia, unspecified (principal); I11.0 Hypertensive heart disease with heart failure; E55.9 Vitamin D deficiency, unspecified; I50.32 Chronic diastolic (congestive) heart failure

== ENCOUNTER → 2025-02-03 | Outpatient (CLI) | payer MEDICARE, OTHER ==
[~2025-02-03] MED LIST changes: +DOXY100C3 PO; +LACT1TAB5 PO
[2025-02-03 16:04] LABS: BASO % 0.3 % (0.0-1.0); EOS # 0.1 10^3/uL (0.0-0.5); EOS % 2.1 % (0.0-3.0); HEMATOCRIT 35.4 % (36.0-47.0); HEMOGLOBIN 11.4 g/dl (12.0-15.5); LYMPH # 1.2 10^3/uL (1.5-5.0); LYMPH % 17.3 % (24.0-44.0); MEAN CORPUSCULAR HEMOGLOBIN 30.7 pg (27.0-33.0); MEAN CORPUSCULAR HGB CONC 32.2 g/dl (32.0-36.5); MEAN CORPUSCULAR VOLUME 95.4 fl (80.0-96.0); MONO # 0.5 10^3/uL (0.0-0.8); MONO % 7.4 % (2.0-8.0); NEUTROPHILS # 4.8 10^3/uL (1.5-8.5); NEUTROPHILS % 72.6 % (36.0-66.0); PLATELET COUNT, AUTOMATED 104 10^3/uL (150-450); RED BLOOD COUNT 3.71 10^6/uL (4.00-5.40); WHITE BLOOD COUNT 6.7 10^3/uL (4.0-10.0)
[2025-02-03 16:28] LABS: PERCENT SATURATION 19.9 % (13.2-45.0)
[2025-02-03 16:30] LABS: FERRITIN 786.7 NG/ML (7.3-270.7)
[2025-02-03 16:34] LABS: ALBUMIN 3.4 G/DL (3.2-5.2); BILIRUBIN,TOTAL 0.6 MG/DL (0.3-1.2); CALCIUM LEVEL 9.3 MG/DL (8.3-10.6); CREATININE FOR GFR 1.22 MG/DL (0.55-1.30); GLOMERULAR FILTRATION RATE 46.9 (>39); POTASSIUM SERUM 3.7 MMOL/L (3.5-5.1); TOTAL PROTEIN 6.7 G/DL (5.7-8.2)
== END ==
LOC: M LAB 14:49
PROVIDERS: ATTEND Family Medicine
DX: I11.0 Hypertensive heart disease with heart failure (principal); D50.9 Iron deficiency anemia, unspecified; E55.9 Vitamin D deficiency, unspecified; M10.9 Gout, unspecified; E53.8 Deficiency of other specified B group vitamins; I50.32 Chronic diastolic (congestive) heart failure; K74.00 Hepatic fibrosis, unspecified

== ENCOUNTER → 2025-02-24 | Outpatient (CLI) | payer MEDICARE, OTHER ==
[2025-02-24 14:49] LABS: BASO # 0.0 10^3/uL (0.0-0.2); BASO % 0.5 % (0.0-1.0); EOS # 0.1 10^3/uL (0.0-0.5); EOS % 1.6 % (0.0-3.0); LYMPH # 0.8 10^3/uL (1.5-5.0); LYMPH % 13.1 % (24.0-44.0); MONO # 0.5 10^3/uL (0.0-0.8); MONO % 8.2 % (2.0-8.0); NEUTROPHILS # 4.9 10^3/uL (1.5-8.5); NEUTROPHILS % 76.3 % (36.0-66.0); PLATELET COUNT, AUTOMATED 148 10^3/uL (150-450)
[2025-02-24 15:10] LABS: ALT/SGPT 23.0 U/L (7.0-40); AST/SGOT 32.0 U/L (<34); CALCIUM LEVEL 8.6 MG/DL (8.3-10.6); CARBON DIOXIDE LEVEL 30.0 MMOL/L (20-31); CHLORIDE LEVEL 105.0 MMOL/L (98-107); CREATININE FOR GFR 1.21 MG/DL (0.55-1.30); GLOMERULAR FILTRATION RATE 47.3 (>39); IRON (FE) 31.0 UG/DL (50-170); PERCENT SATURATION 12.4 % (13.2-45.0); POTASSIUM SERUM 4.1 MMOL/L (3.5-5.1); SODIUM LEVEL 145.0 MMOL/L (136-145)
[2025-02-24 15:12] LABS: VITAMIN B12 LEVEL 1018.0 PG/ML (211-911)
[2025-02-24 16:05] LABS: PTH INTACT 102.7 PG/ML (18.5-88.0)
== END ==
LOC: M LAB 14:16 → EDSTATUS 02-25 10:46
PROVIDERS: ATTEND Family Medicine
DX: M10.9 Gout, unspecified (principal); E53.8 Deficiency of other specified B group vitamins; E55.9 Vitamin D deficiency, unspecified; I50.32 Chronic diastolic (congestive) heart failure; I10 Essential (primary) hypertension; D50.9 Iron deficiency anemia, unspecified

== ENCOUNTER 2025-03-07 08:57 | Outpatient (CLI) | payer MEDICARE, OTHER ==
[~2025-03-07] VITALS: Ht 167.6 cm; Wt 81.4 kg
[~2025-03-07 08:57] MED LIST changes: +ALBUTEROL SULFATE 2.5 MG/0.5 ML INH CONCENTRATE NEB SOLN INH PRN; +EPINEPHrine INJ 1 MG/ML 1ML AMP IM PRN; +diphenhydrAMINE 50 MG/ML VIAL IV PRN
[2025-03-07 09:10] VITALS: BP 127/57; O2SAT 98
[2025-03-07] MEDS: FERRIC CARBOXYMALTOSE 750 MG (VIAL MATE) IN 100ML NS IV ONE (09:35)
[2025-03-07 10:11] VITALS: BP 138/62; O2SAT 100
== END 2025-03-07 10:15 | disposition home or self-care (01) ==
LOC: M INFU 08:57
PROVIDERS: ATTEND Family Medicine
DX: D50.9 Iron deficiency anemia, unspecified (principal); Z88.1 Allergy status to other antibiotic agents; Z88.2 Allergy status to sulfonamides; Z88.8 Allergy status to other drugs, medicaments and biological substances
CPT/HCPCS: 96365; J1439

== ENCOUNTER 2025-03-14 02:52 | Inpatient (IN) | payer MEDICARE, OTHER ==
[~2025-03-14] VITALS: Ht 167.6 cm; Wt 80.0 kg
[~2025-03-14 02:52] MED LIST changes: -ALBUTEROL SULFATE 2.5 MG/0.5 ML INH CONCENTRATE NEB SOLN INH PRN; -EPINEPHrine INJ 1 MG/ML 1ML AMP IM PRN; -diphenhydrAMINE 50 MG/ML VIAL IV PRN
[2025-03-14 03:32] LABS: BASO # 0.0 10^3/uL (0.0-0.2); BASO % 0.2 % (0.0-1.0); EOS # 0.2 10^3/uL (0.0-0.5); EOS % 1.5 % (0.0-3.0); LYMPH # 1.0 10^3/uL (1.5-5.0); LYMPH % 8.0 % (24.0-44.0); MONO # 0.9 10^3/uL (0.0-0.8); MONO % 7.0 % (2.0-8.0); NEUTROPHILS # 10.9 10^3/uL (1.5-8.5); NEUTROPHILS % 82.9 % (36.0-66.0); PLATELET COUNT, AUTOMATED 165 10^3/uL (150-450)
[2025-03-14 03:32] LABS: VENOUS BASE EXCESS 2.0 (-2.0-2.0); VENOUS HCO3 29.3 MMOL/L (23.0-27.0); VENOUS O2 SATURATION 95.8 % (60.0-80.0); VENOUS PARTIAL PRESSURE CO2 59.9 mmHg (38.0-50.0); VENOUS PARTIAL PRESSURE O2 94.5 mmHg (30.0-50.0); VENOUS PH 7.308 UNITS (7.330-7.430); VENOUS STANDARD HCO3 26.2 MMOL/L; VENOUS TOTAL CO2 31.2 MMOL/L (24.0-28.0)
[2025-03-14 03:59] LABS: ALT/SGPT 25.0 U/L (7.0-40); AST/SGOT 33.0 U/L (<34); CALCIUM LEVEL 8.2 MG/DL (8.3-10.6); CARBON DIOXIDE LEVEL 32.0 MMOL/L (20-31); CHLORIDE LEVEL 101.0 MMOL/L (98-107); CK-MB VALUE MASS 2.4 NG/ML (<3.6); CPK CREATINE PHOSPHOKINASE 51.0 U/L (34-145); CREATININE FOR GFR 1.53 MG/DL (0.55-1.30); GLOMERULAR FILTRATION RATE 35.7 (>39); MB/CK RELATIVE INDEX 4.7 (< OR =4); POTASSIUM SERUM 3.6 MMOL/L (3.5-5.1); SODIUM LEVEL 140.0 MMOL/L (136-145)
[2025-03-14 04:00] LABS: THYROXINE (T4) 7.2 UG/DL (4.5-10.9)
[2025-03-14 04:12] LABS: INR 1.95
[2025-03-14 04:55] LABS: CK-MB VALUE MASS 3.3 NG/ML (<3.6)
[2025-03-14 04:57] LABS: CPK CREATINE PHOSPHOKINASE 56.0 U/L (34-145); MB/CK RELATIVE INDEX 5.89 (< OR =4)
[2025-03-14] MEDS: AZITHROMYCIN 250 MG TABLET PO ONE (05:07)
[2025-03-14] MEDS: cefTRIAXone SOD 1 GM in DEXTROSE 5% (D5W) ADV/MINI-BAG 50 ML IV ONE (05:08)
[2025-03-14] MEDS: IPRATROPIUM 0.5 MG/ALBUTEROL 2.5 MG INH SOL UD 3 ML NEB ONE ×2 (05:10→05:15)
[2025-03-14] MEDS ORDERED: ISOVUE-370 76% 100 ML VIAL As Ordered ONE (05:19)
[2025-03-14] MEDS ORDERED: HOME MED LIST COMPLETE! XX SCH (09:00)
[2025-03-14] MEDS: COLESEVELAM 625 MG TAB (WELCHOL) PO SCH (09:00)
[2025-03-14] MEDS: ROSUVASTATIN 10 MG TAB PO SCH (12:18)
[2025-03-14] MEDS: FUROSEMIDE 40 MG/4 ML VIAL IV SCH (12:18)
[2025-03-14] MEDS: POTASSIUM CHLORIDE 10MEQ SR TABLET PO ONE (12:18)
[2025-03-14] MEDS: ESCITALOPRAM OXALATE 10 MG TABLET PO SCH (12:19)
[2025-03-14] MEDS: APIXABAN 5 MG TAB PO SCH (12:19)
[2025-03-14] MEDS: dilTIAZem 30 MG TAB PO SCH (12:20)
[2025-03-14] MEDS: PANTOPRAZOLE 40MG TAB PO SCH (12:21)
[2025-03-14 13:52] VITALS: BP 134/84; TEMP 97; O2SAT 100
[2025-03-14] MEDS: IPRATROPIUM 0.5 MG/ALBUTEROL 2.5 MG INH SOL UD 3 ML NEB SCH (14:26)
[2025-03-14 20:18] VITALS: BP 137/47; TEMP 96.8; O2SAT 97
[2025-03-14] MEDS: GABAPENTIN 400 MG CAP PO SCH (20:21)
[2025-03-14] MEDS: FIDAXOMICIN 200 MG TAB PO SCH (21:35)
[2025-03-15 04:15] VITALS: BP 150/53; TEMP 96.6; O2SAT 97
[2025-03-15 06:45] LABS: PLATELET COUNT, AUTOMATED 128 10^3/uL (150-450)
[2025-03-15 07:13] LABS: CALCIUM LEVEL 8.5 MG/DL (8.3-10.6); CARBON DIOXIDE LEVEL 23.0 MMOL/L (20-31); CHLORIDE LEVEL 101.0 MMOL/L (98-107); CREATININE FOR GFR 1.73 MG/DL (0.55-1.30); GLOMERULAR FILTRATION RATE 30.8 (>39); POTASSIUM SERUM 4.0 MMOL/L (3.5-5.1); SODIUM LEVEL 139.0 MMOL/L (136-145)
[2025-03-15 07:20] VITALS: O2SAT 99
[2025-03-15 08:50] VITALS: BP 110/54
[2025-03-15 12:05] VITALS: BP 129/48; TEMP 97.2; O2SAT 96
[2025-03-15 19:40] VITALS: BP 155/49; TEMP 97; O2SAT 98
[2025-03-16 03:50] VITALS: BP 150/66; TEMP 97; O2SAT 93; O2SAT 98
[2025-03-16 06:19] LABS: BASO # 0.0 10^3/uL (0.0-0.2); BASO % 0.1 % (0.0-1.0); EOS # 0.0 10^3/uL (0.0-0.5); EOS % 0.3 % (0.0-3.0); LYMPH # 0.7 10^3/uL (1.5-5.0); LYMPH % 6.3 % (24.0-44.0); MONO # 0.7 10^3/uL (0.0-0.8); MONO % 5.8 % (2.0-8.0); NEUTROPHILS # 10.2 10^3/uL (1.5-8.5); NEUTROPHILS % 87.0 % (36.0-66.0); PLATELET COUNT, AUTOMATED 138 10^3/uL (150-450)
[2025-03-16 07:02] LABS: CALCIUM LEVEL 8.5 MG/DL (8.3-10.6); CARBON DIOXIDE LEVEL 30.0 MMOL/L (20-31); CHLORIDE LEVEL 102.0 MMOL/L (98-107); CREATININE FOR GFR 2.02 MG/DL (0.55-1.30); GLOMERULAR FILTRATION RATE 25.6 (>39); POTASSIUM SERUM 4.0 MMOL/L (3.5-5.1); SODIUM LEVEL 141.0 MMOL/L (136-145)
[2025-03-16] MEDS ORDERED: TORSEMIDE 50 MG PER 1/2 TAB PO SCH (09:00)
[2025-03-16 17:41] VITALS: BP 150/60; TEMP 96.8; O2SAT 90
[2025-03-16 20:04] VITALS: BP 154/59; TEMP 97.2; O2SAT 98
[2025-03-17 04:04] VITALS: BP 110/58; TEMP 97; O2SAT 98
[2025-03-17 07:02] LABS: BASO # 0.0 10^3/uL (0.0-0.2); BASO % 0.2 % (0.0-1.0); EOS # 0.2 10^3/uL (0.0-0.5); EOS % 2.1 % (0.0-3.0); LYMPH # 0.9 10^3/uL (1.5-5.0); LYMPH % 7.8 % (24.0-44.0); MONO # 1.0 10^3/uL (0.0-0.8); MONO % 8.7 % (2.0-8.0); NEUTROPHILS # 9.2 10^3/uL (1.5-8.5); NEUTROPHILS % 80.8 % (36.0-66.0); PLATELET COUNT, AUTOMATED 140 10^3/uL (150-450)
[2025-03-17 07:38] LABS: CALCIUM LEVEL 8.6 MG/DL (8.3-10.6); CARBON DIOXIDE LEVEL 33.0 MMOL/L (20-31); CHLORIDE LEVEL 106.0 MMOL/L (98-107); CREATININE FOR GFR 1.96 MG/DL (0.55-1.30); GLOMERULAR FILTRATION RATE 26.5 (>39); IRON (FE) 26.0 UG/DL (50-170); POTASSIUM SERUM 4.6 MMOL/L (3.5-5.1); SODIUM LEVEL 147.0 MMOL/L (136-145)
[2025-03-17 07:39] LABS: PERCENT SATURATION 9.7 % (13.2-45.0)
[2025-03-17 09:53] VITALS: BP 120/50
[2025-03-17] MEDS: TORSEMIDE 50 MG PER 1/2 TAB PO SCH (09:53)
[2025-03-17 12:00] VITALS: BP 153/68; TEMP 97.5; O2SAT 97
[2025-03-17] MEDS: FERRIC CARBOXYMALTOSE INJ 750 MG, VIAL MATE ADAPTER 1 EACH in NS 100 ML IV ONE (14:11)
[2025-03-17 14:15] VITALS: BP 135/63; TEMP 97.6; O2SAT 94
[2025-03-17 14:40] VITALS: BP 147/62; TEMP 96.6; O2SAT 97
== END 2025-03-17 15:26 | disposition home or self-care (01) | DRG 291 ==
LOC: M ED 02:52 → M ED INP 10:01 → M MSPAV 13:48
PROVIDERS: ADMIT Internal Medicine; ATTEND General Practice
PROC: B246ZZZ Ultrasonography of Right and Left Heart (ICD-10-PCS; principal; 2025-03-14)
DX: I13.0 Hypertensive heart and chronic kidney disease with heart failure and stage 1 through stage 4 chronic kidney disease, or unspecified chronic kidney disease (principal); I50.33 Acute on chronic diastolic (congestive) heart failure; J96.21 Acute and chronic respiratory failure with hypoxia; N17.9 Acute kidney failure, unspecified; I35.0 Nonrheumatic aortic (valve) stenosis; I48.91 Unspecified atrial fibrillation; I49.5 Sick sinus syndrome; J44.9 Chronic obstructive pulmonary disease, unspecified; N18.30 Chronic kidney disease, stage 3 unspecified; E11.22 Type 2 diabetes mellitus with diabetic chronic kidney disease; K25.9 Gastric ulcer, unspecified as acute or chronic, without hemorrhage or perforation; E11.42 Type 2 diabetes mellitus with diabetic polyneuropathy; G47.33 Obstructive sleep apnea (adult) (pediatric); D63.1 Anemia in chronic kidney disease; F32.A Depression, unspecified; Z79.01 Long term (current) use of anticoagulants; Z79.899 Other long term (current) drug therapy; Z95.0 Presence of cardiac pacemaker; Z88.2 Allergy status to sulfonamides; Z88.8 Allergy status to other drugs, medicaments and biological substances; Z95.2 Presence of prosthetic heart valve; Z98.84 Bariatric surgery status; Z90.49 Acquired absence of other specified parts of digestive tract; Z90.13 Acquired absence of bilateral breasts and nipples; Z85.3 Personal history of malignant neoplasm of breast; Z87.891 Personal history of nicotine dependence

== ENCOUNTER → 2025-03-25 | Outpatient (CLI) | payer MEDICARE, OTHER ==
[2025-03-25 16:43] LABS: BASO # 0.0 10^3/uL (0.0-0.2); BASO % 0.4 % (0.0-1.0); EOS # 0.4 10^3/uL (0.0-0.5); EOS % 4.4 % (0.0-3.0); LYMPH # 0.9 10^3/uL (1.5-5.0); LYMPH % 11.8 % (24.0-44.0); MONO # 0.5 10^3/uL (0.0-0.8); MONO % 6.7 % (2.0-8.0); NEUTROPHILS # 6.0 10^3/uL (1.5-8.5); NEUTROPHILS % 76.3 % (36.0-66.0); PLATELET COUNT, AUTOMATED 126 10^3/uL (150-450)
[2025-03-25 17:21] LABS: ALT/SGPT 56.0 U/L (7.0-40); AST/SGOT 46.0 U/L (<34); CALCIUM LEVEL 7.7 MG/DL (8.3-10.6); CARBON DIOXIDE LEVEL 36.0 MMOL/L (20-31); CHLORIDE LEVEL 98.0 MMOL/L (98-107); CREATININE FOR GFR 1.74 MG/DL (0.55-1.30); GLOMERULAR FILTRATION RATE 30.6 (>39); IRON (FE) 41.0 UG/DL (50-170); PERCENT SATURATION 14.7 % (13.2-45.0); POTASSIUM SERUM 3.2 MMOL/L (3.5-5.1); PTH INTACT 215.1 PG/ML (18.5-88.0); SODIUM LEVEL 142.0 MMOL/L (136-145)
[2025-03-25 17:23] LABS: VITAMIN B12 LEVEL 1165.0 PG/ML (211-911)
== END ==
LOC: M LAB 15:51
PROVIDERS: ATTEND Family Medicine
DX: D50.9 Iron deficiency anemia, unspecified (principal); I11.0 Hypertensive heart disease with heart failure; I50.32 Chronic diastolic (congestive) heart failure; E55.9 Vitamin D deficiency, unspecified; E53.8 Deficiency of other specified B group vitamins; M10.9 Gout, unspecified

== ENCOUNTER → 2025-03-31 | Outpatient (CLI) | payer MEDICARE, OTHER ==
[~2025-03-31] MED LIST changes: +ACETAMINOPHEN 325 MG TAB PO PRN; -COLC0.6T47 PO; +COLC0.6T53 PO; +CYAN250T5 PO; -VITA250T7 PO
[2025-03-31 10:47] VITALS: TEMP 96.3
[2025-03-31 12:21] LABS: BASO # 0.0 10^3/uL (0.0-0.2); BASO % 0.4 % (0.0-1.0); EOS # 0.3 10^3/uL (0.0-0.5); EOS % 3.6 % (0.0-3.0); LYMPH # 0.9 10^3/uL (1.5-5.0); LYMPH % 12.5 % (24.0-44.0); MONO # 0.4 10^3/uL (0.0-0.8); MONO % 5.9 % (2.0-8.0); NEUTROPHILS # 5.3 10^3/uL (1.5-8.5); NEUTROPHILS % 77.2 % (36.0-66.0); PLATELET COUNT, AUTOMATED 150 10^3/uL (150-450)
[2025-03-31 12:32] LABS: SOURCE, BODY FLUID PLEURAL
[2025-03-31 12:33] LABS: APPEARANCE, BODY FLUID CLOUDY (CLEAR); PLEURAL FL COLOR RED (COLORLESS)
[2025-03-31 12:36] LABS: INR 1.66
[2025-03-31 12:51] LABS: LDH LACTATE DEHYDROGENASE 289.0 U/L (120-246)
[2025-03-31 12:52] LABS: ALT/SGPT 37.0 U/L (7.0-40); AST/SGOT 34.0 U/L (<34); CALCIUM LEVEL 8.1 MG/DL (8.3-10.6); CARBON DIOXIDE LEVEL 34.0 MMOL/L (20-31); CHLORIDE LEVEL 102.0 MMOL/L (98-107); CREATININE FOR GFR 1.53 MG/DL (0.55-1.30); GLOMERULAR FILTRATION RATE 35.7 (>39); POTASSIUM SERUM 4.3 MMOL/L (3.5-5.1); SODIUM LEVEL 142.0 MMOL/L (136-145)
[2025-03-31 13:10] LABS: PH BODY FLUID 7.557 UNITS (NOT ESTABLISHED); SOURCE, BODY FLUID pH PLEURAL
[2025-03-31 13:30] VITALS: BP 116/57; O2SAT 100
== END ==
LOC: M IRPRO 10:34
PROVIDERS: ATTEND Internal Medicine Critical Care Medicine
DX: J90 Pleural effusion, not elsewhere classified (principal); Z79.01 Long term (current) use of anticoagulants

== ENCOUNTER → 2025-04-01 | Outpatient (CLI) | payer MEDICARE, OTHER ==
[~2025-04-01] MED LIST changes: -ACETAMINOPHEN 325 MG TAB PO PRN; +COLC0.6T47 PO; -COLC0.6T53 PO
[2025-04-01 12:05] VITALS: TEMP 98
[2025-04-01 12:45] VITALS: BP 118/58; O2SAT 100
[2025-04-01] MEDS: LIDOCAINE 1% MDV 20 ML VIAL SC STA (13:43)
== END ==
LOC: M IRPRO 11:56
PROVIDERS: ATTEND Family Medicine
DX: E04.1 Nontoxic single thyroid nodule (principal)

== ENCOUNTER 2025-04-20 14:55 | Outpatient (CLI) | payer MEDICARE, OTHER ==
[~2025-04-20 14:55] MED LIST changes: +ALBUTEROL SULFATE 2.5 MG/0.5 ML INH CONCENTRATE NEB SOLN INH PRN; -COLC0.6T47 PO; +COLC0.6T53 PO; +EPINEPHrine INJ 1 MG/ML 1ML AMP IM PRN; +diphenhydrAMINE 50 MG/ML VIAL IV PRN
[2025-04-20 15:00] VITALS: BP 146/69; O2SAT 100
[2025-04-20] MEDS: FERRIC CARBOXYMALTOSE 750 MG (VIAL MATE) IN 100ML NS IV ONE (15:05)
[2025-04-20 15:35] VITALS: BP 157/71; O2SAT 100
== END 2025-04-20 15:35 ==
LOC: M INFU 14:55
PROVIDERS: ATTEND Family Medicine
DX: D50.9 Iron deficiency anemia, unspecified (principal); Z88.2 Allergy status to sulfonamides; Z88.1 Allergy status to other antibiotic agents; Z88.8 Allergy status to other drugs, medicaments and biological substances
CPT/HCPCS: 96365; J1439

== ENCOUNTER 2025-05-23 22:21 | Emergency (ER) | payer MEDICARE, OTHER ==
[~2025-05-23] VITALS: Ht 167.6 cm; Wt 82.7 kg
[~2025-05-23 22:21] MED LIST changes: -ALBUTEROL SULFATE 2.5 MG/0.5 ML INH CONCENTRATE NEB SOLN INH PRN; -EPINEPHrine INJ 1 MG/ML 1ML AMP IM PRN; -diphenhydrAMINE 50 MG/ML VIAL IV PRN
[2025-05-24 05:06] VITALS: BP 162/68; TEMP 97; O2SAT 99
[2025-07-04] MEDS ORDERED: TORS20TA2 PO (15:33)
== END 2025-05-24 05:15 | disposition left against medical advice (07) ==
LOC: M ED 22:21
DX: R21 Rash and other nonspecific skin eruption (principal); R19.7 Diarrhea, unspecified; I48.91 Unspecified atrial fibrillation; I50.22 Chronic systolic (congestive) heart failure; E78.5 Hyperlipidemia, unspecified; K21.9 Gastro-esophageal reflux disease without esophagitis; J44.9 Chronic obstructive pulmonary disease, unspecified; N18.30 Chronic kidney disease, stage 3 unspecified; Z88.1 Allergy status to other antibiotic agents; Z88.2 Allergy status to sulfonamides; Z88.8 Allergy status to other drugs, medicaments and biological substances; Z79.51 Long term (current) use of inhaled steroids; Z79.01 Long term (current) use of anticoagulants; Z79.899 Other long term (current) drug therapy; Z53.9 Procedure and treatment not carried out, unspecified reason

== ENCOUNTER → 2025-05-27 | Outpatient (CLI) | payer MEDICARE, OTHER ==
[2025-05-27 09:40] LABS: BASO # 0.0 10^3/uL (0.0-0.2); BASO % 0.2 % (0.0-1.0); EOS # 0.2 10^3/uL (0.0-0.5); EOS % 2.3 % (0.0-3.0); LYMPH # 1.0 10^3/uL (1.5-5.0); LYMPH % 11.8 % (24.0-44.0); MONO # 0.5 10^3/uL (0.0-0.8); MONO % 6.1 % (2.0-8.0); NEUTROPHILS # 6.5 10^3/uL (1.5-8.5); NEUTROPHILS % 79.4 % (36.0-66.0); PLATELET COUNT, AUTOMATED 134 10^3/uL (150-450)
[2025-05-27 10:12] LABS: ALT/SGPT 16.0 U/L (7.0-40); AST/SGOT 20.0 U/L (<34); CALCIUM LEVEL 8.4 MG/DL (8.3-10.6); CARBON DIOXIDE LEVEL 26.0 MMOL/L (20-31); CHLORIDE LEVEL 109.0 MMOL/L (98-107); CREATININE FOR GFR 1.45 MG/DL (0.55-1.30); GLOMERULAR FILTRATION RATE 38.1 (>39); IRON (FE) 72.0 UG/DL (50-170); MAGNESIUM LEVEL 1.8 MG/DL (1.8-2.4); PERCENT SATURATION 28.5 % (13.2-45.0); POTASSIUM SERUM 3.6 MMOL/L (3.5-5.1); PTH INTACT 105.3 PG/ML (18.5-88.0); SODIUM LEVEL 145.0 MMOL/L (136-145)
[2025-05-27 10:13] LABS: VITAMIN B12 LEVEL 437.0 PG/ML (211-911)
== END ==
LOC: M LAB 08:44
PROVIDERS: ATTEND Family Medicine
DX: I11.0 Hypertensive heart disease with heart failure (principal); I50.32 Chronic diastolic (congestive) heart failure; E55.9 Vitamin D deficiency, unspecified; D50.9 Iron deficiency anemia, unspecified; M10.9 Gout, unspecified; E53.8 Deficiency of other specified B group vitamins

== ENCOUNTER → 2025-06-15 | Outpatient (CLI) | payer MEDICARE, OTHER | LOC: M RAD 13:08 | PROVIDERS: ATTEND Surgery | DX: I70.238 Atherosclerosis of native arteries of right leg with ulceration of other part of lower leg (principal); L97.912 Non-pressure chronic ulcer of unspecified part of right lower leg with fat layer exposed; R52 Pain, unspecified; R68.89 Other general symptoms and signs; Z95.820 Peripheral vascular angioplasty status with implants and grafts ==

== ENCOUNTER → 2025-06-22 | Outpatient (CLI) | payer MEDICARE, OTHER | LOC: M PLAIMG 10:34 | PROVIDERS: ATTEND Physician Assistant | DX: I31.39 Other pericardial effusion (noninflammatory) (principal); Z95.0 Presence of cardiac pacemaker; I08.0 Rheumatic disorders of both mitral and aortic valves ==

== ENCOUNTER 2025-06-29 15:00 | Outpatient (CLI) | payer MEDICARE, OTHER ==
[~2025-06-29] VITALS: Ht 167.6 cm; Wt 84.1 kg
[~2025-06-29 15:00] MED LIST changes: +ALBUTEROL SULFATE 2.5 MG/0.5 ML INH CONCENTRATE NEB SOLN INH PRN; +EPINEPHrine INJ 1 MG/ML 1ML AMP IM PRN; +diphenhydrAMINE 50 MG/ML VIAL IV PRN
[2025-06-29] MEDS: FERRIC CARBOXYMALTOSE 750 MG (VIAL MATE) IN 100ML NS IV ONE (15:07)
[2025-06-29 15:09] VITALS: BP 140/74; O2SAT 100
[2025-06-29 15:48] VITALS: BP 157/80; O2SAT 100
== END 2025-06-29 15:48 | disposition home or self-care (01) ==
LOC: M INFU 15:00
PROVIDERS: ATTEND Family Medicine
DX: D50.9 Iron deficiency anemia, unspecified (principal); Z88.1 Allergy status to other antibiotic agents; Z88.2 Allergy status to sulfonamides; Z88.8 Allergy status to other drugs, medicaments and biological substances
CPT/HCPCS: 96365; J1439

== ENCOUNTER → 2025-07-06 | Outpatient (CLI) | payer MEDICARE, OTHER ==
[~2025-07-06] MED LIST changes: -ALBUTEROL SULFATE 2.5 MG/0.5 ML INH CONCENTRATE NEB SOLN INH PRN; -EPINEPHrine INJ 1 MG/ML 1ML AMP IM PRN; -diphenhydrAMINE 50 MG/ML VIAL IV PRN
[2025-07-06 12:00] LABS: PLATELET COUNT, AUTOMATED 130 10^3/uL (150-450)
[2025-07-06 12:28] LABS: CALCIUM LEVEL 8.0 MG/DL (8.3-10.6); CARBON DIOXIDE LEVEL 22.0 MMOL/L (20-31); CHLORIDE LEVEL 110.0 MMOL/L (98-107); CREATININE FOR GFR 1.42 MG/DL (0.55-1.30); GLOMERULAR FILTRATION RATE 39.1 (>39); POTASSIUM SERUM 3.9 MMOL/L (3.5-5.1); SODIUM LEVEL 141.0 MMOL/L (136-145)
[2025-07-06 12:31] LABS: INR 1.45
== END ==
LOC: M LAB 10:51
PROVIDERS: ATTEND Radiology Diagnostic Radiology
DX: I73.9 Peripheral vascular disease, unspecified (principal); Z79.899 Other long term (current) drug therapy

== ENCOUNTER → 2025-07-11 | Outpatient (CLI) | payer MEDICARE, OTHER ==
[~2025-07-11] VITALS: Ht 167.6 cm; Wt 83.6 kg
[~2025-07-11] MED LIST changes: +ACETAMINOPHEN 325 MG TAB PO PRN; +LIDOCAINE 2% 100 MG/5 ML SDV (FOR ANES.) As Ordered ONE; +MIDAZOLAM INJ 2 MG/2 ML VIAL As Ordered ONE; +NS (Normal Saline) 0.9% 1,000 ML IV SCH; +PHENYLephrine 500MCG 5ML (100MCG/ML) SYRINGE As Ordered ONE
[2025-07-11 07:13] VITALS: TEMP 97.2
[2025-07-11] MEDS: HEPARIN 1,000 UNITS/ML 10 ML VIAL (FOR RADIOLOGY & DIALYSIS ONLY) IV PRN (09:27)
[2025-07-11] MEDS: LIDOCAINE 1% MDV 20 ML VIAL SC SCH (10:15)
[2025-07-11] MEDS: ISOVUE-300 61% 100 ML VIAL IV SCH (10:15)
[2025-07-11] MEDS: LR 1,000 ML IV SCH (10:17)
[2025-07-11] MEDS: PROTAMINE SULF 50MG 5ML VIAL IV STA (10:51)
[2025-07-11] MEDS: PERCOCET 5MG/325MG TAB PO PRN (13:14)
[2025-07-11 14:15] VITALS: BP 127/58; O2SAT 100
== END ==
LOC: M IRPRO 06:52
PROVIDERS: ATTEND Radiology Diagnostic Radiology
DX: T82.856A Stenosis of peripheral vascular stent, initial encounter (principal); I70.201 Unspecified atherosclerosis of native arteries of extremities, right leg; R09.89 Other specified symptoms and signs involving the circulatory and respiratory systems
CPT/HCPCS: 37226; 37230; 75625; 76937; 93975; C1725; C1760; C1874; C1886; C1894; C2623; J2250; J2371; J2720; J3010; Q9967

== ENCOUNTER → 2025-07-14 | Outpatient (CLI) | payer MEDICARE, OTHER ==
[~2025-07-14] MED LIST changes: -ACETAMINOPHEN 325 MG TAB PO PRN; -LIDOCAINE 2% 100 MG/5 ML SDV (FOR ANES.) As Ordered ONE; -MIDAZOLAM INJ 2 MG/2 ML VIAL As Ordered ONE; -NS (Normal Saline) 0.9% 1,000 ML IV SCH; -PHENYLephrine 500MCG 5ML (100MCG/ML) SYRINGE As Ordered ONE
== END ==
LOC: M RAD 10:13
PROVIDERS: ATTEND Radiology Diagnostic Radiology
DX: I70.202 Unspecified atherosclerosis of native arteries of extremities, left leg (principal)

== ENCOUNTER → 2025-07-22 | Outpatient (CLI) | payer MEDICARE, OTHER ==
[~2025-07-22] MED LIST changes: +AZIT-10 PO; +IPRA0.00 INH; +NEBU1EAC78 MC
[2025-07-22 16:35] LABS: BASO # 0.0 10^3/uL (0.0-0.2); BASO % 0.3 % (0.0-1.0); EOS # 0.3 10^3/uL (0.0-0.5); EOS % 2.5 % (0.0-3.0); LYMPH # 1.0 10^3/uL (1.5-5.0); LYMPH % 10.2 % (24.0-44.0); MONO # 0.5 10^3/uL (0.0-0.8); MONO % 4.6 % (2.0-8.0); NEUTROPHILS # 8.1 10^3/uL (1.5-8.5); NEUTROPHILS % 81.4 % (36.0-66.0); PLATELET COUNT, AUTOMATED 187 10^3/uL (150-450)
[2025-07-22 17:04] LABS: ALT/SGPT 11.0 U/L (7.0-40); AST/SGOT 18.0 U/L (<34); CALCIUM LEVEL 8.1 MG/DL (8.3-10.6); CARBON DIOXIDE LEVEL 26.0 MMOL/L (20-31); CHLORIDE LEVEL 105.0 MMOL/L (98-107); CHOLESTEROL LEVEL 133.0 MG/DL (<200); CHOLESTEROL RISK RATIO 3.71 (<5); CREATININE FOR GFR 1.35 MG/DL (0.55-1.30); GLOMERULAR FILTRATION RATE 41.5 (>39); IRON (FE) 42.0 UG/DL (50-170); LDL CHOLESTEROL 66.4 MG/DL (<100); MAGNESIUM LEVEL 1.7 MG/DL (1.8-2.4); NON-HDL-C 97.2 MG/DL; PERCENT SATURATION 20.9 % (13.2-45.0); POTASSIUM SERUM 3.1 MMOL/L (3.5-5.1); PTH INTACT 92.6 PG/ML (18.5-88.0); SODIUM LEVEL 138.0 MMOL/L (136-145); TRIGLYCERIDES LEVEL 154.0 MG/DL (<150)
[2025-07-22 17:06] LABS: VITAMIN B12 LEVEL 794.0 PG/ML (211-911)
[2025-07-30 21:22] LABS: PANCREATIC ELASTASE STOOL 320.0 mcg/g (>200)
[2025-07-31 19:32] LABS: CALPROTECTIN STOOL 232.0 mcg/g (<50)
[2025-08-06 00:07] LABS: VASOACTIVE INTESTINAL PEPTIDE 19.0 pg/mL (0.0-58.8)
== END ==
LOC: M LAB 15:37
PROVIDERS: ATTEND Family Medicine
DX: I11.0 Hypertensive heart disease with heart failure (principal); I50.32 Chronic diastolic (congestive) heart failure; E55.9 Vitamin D deficiency, unspecified; D50.9 Iron deficiency anemia, unspecified; M10.9 Gout, unspecified; E53.8 Deficiency of other specified B group vitamins; E78.2 Mixed hyperlipidemia; R19.7 Diarrhea, unspecified; A04.72 Enterocolitis due to Clostridium difficile, not specified as recurrent

== ENCOUNTER → 2025-07-25 | Outpatient (POV) | payer MEDICARE, OTHER ==
[~2025-07-25] MED LIST changes: -COLE625T; +[UNRECOGNIZED DRUG - CODE]
== END ==
LOC: M IRPOV 13:30
PROVIDERS: ATTEND Registered Nurse School
DX: Z48.812 Encounter for surgical aftercare following surgery on the circulatory system (principal); I73.9 Peripheral vascular disease, unspecified; Z79.01 Long term (current) use of anticoagulants; Z79.899 Other long term (current) drug therapy; Z80.0 Family history of malignant neoplasm of digestive organs; Z82.49 Family history of ischemic heart disease and other diseases of the circulatory system; Z83.3 Family history of diabetes mellitus; Z87.891 Personal history of nicotine dependence; Z88.1 Allergy status to other antibiotic agents; Z88.2 Allergy status to sulfonamides; Z88.8 Allergy status to other drugs, medicaments and biological substances; Z90.13 Acquired absence of bilateral breasts and nipples; Z95.828 Presence of other vascular implants and grafts; Z98.84 Bariatric surgery status

== ENCOUNTER → 2025-08-08 | Outpatient (REF) | payer MEDICARE, OTHER ==
[~2025-08-08] MED LIST changes: -AZIT-10 PO; +COLE625T; -IPRA0.00 INH; -NEBU1EAC78 MC; -[UNRECOGNIZED DRUG - CODE]
[2025-08-08 13:50] LABS: APPEARANCE, URINE CLOUDY (CLEAR); BACTERIA, URINE AUTO 3+ (NEGATIVE); BILIRUBIN, URINE AUTO NEGATIVE (NEGATIVE); BLOOD, URINE BLOOD 1+ (NEGATIVE); GLUCOSE, URINE (UA) AUTO NEGATIVE (NEGATIVE); KETONE, URINE AUTO NEGATIVE (NEGATIVE); LEUKOCYTE ESTERASE, URINE AUTO 2+ (NEGATIVE); NITRITE, URINE AUTO POSITIVE (NEGATIVE); PROTEIN, URINE AUTO NEGATIVE (NEGATIVE); RBC, URINE AUTO 9 /HPF (0-3); SPECIFIC GRAVITY URINE AUTO 1.011 (1.002-1.035); SQUAMOUS EPITHELIAL CELL UR AU 56 /HPF (0-6); UROBILINOGEN, URINE AUTO 0.2 mg/dL (0.0-2.0); WBC, URINE AUTO TNTC /HPF (0-3)
== END ==
LOC: M SFHCPLAZ 12:51
PROVIDERS: ATTEND Family Medicine
DX: N39.0 Urinary tract infection, site not specified (principal)

== ENCOUNTER → 2025-08-10 | Outpatient (CLI) | payer MEDICARE, OTHER ==
[~2025-08-10] MED LIST changes: +AZIT-10 PO; +IPRA0.00 INH; +NEBU1EAC78 MC
[2025-08-10 09:22] LABS: BASO # 0.0 10^3/uL (0.0-0.2); BASO % 0.3 % (0.0-1.0); EOS # 0.2 10^3/uL (0.0-0.5); EOS % 2.4 % (0.0-3.0); LYMPH # 1.1 10^3/uL (1.5-5.0); LYMPH % 12.2 % (24.0-44.0); MONO # 0.5 10^3/uL (0.0-0.8); MONO % 5.4 % (2.0-8.0); NEUTROPHILS # 6.9 10^3/uL (1.5-8.5); NEUTROPHILS % 79.1 % (36.0-66.0); PLATELET COUNT, AUTOMATED 107 10^3/uL (150-450)
[2025-08-10 10:02] LABS: ALT/SGPT < 9 U/L (7.0-40); AST/SGOT 13 U/L (<34); CALCIUM LEVEL 8.1 MG/DL (8.3-10.6); CARBON DIOXIDE LEVEL 31 MMOL/L (20-31); CHLORIDE LEVEL 103 MMOL/L (98-107); CREATININE FOR GFR 1.48 MG/DL (0.55-1.30); GLOMERULAR FILTRATION RATE 37.2 (>39); IRON (FE) 54 UG/DL (50-170); MAGNESIUM LEVEL 1.6 MG/DL (1.8-2.4); PERCENT SATURATION 24.8 % (13.2-45.0); POTASSIUM SERUM 3.3 MMOL/L (3.5-5.1); SODIUM LEVEL 140 MMOL/L (136-145)
== END ==
LOC: M LAB 08:46
PROVIDERS: ATTEND Family Medicine
DX: I11.0 Hypertensive heart disease with heart failure (principal); I50.32 Chronic diastolic (congestive) heart failure; D50.9 Iron deficiency anemia, unspecified